=== PATIENT | male | born 1990 | race Hispanic/Latino ===

== ENCOUNTER 2017-05-17 19:35 | Emergency (ER) | payer BC, MEDICAID, OTHER ==
[2017-05-17 19:35] VITALS: BMI 22.1
--- NOTE | 2017-05-17 20:34 | ED PDOC ---
Arrival/HPI - General Chief Complaint: Cough, Cold, Congestion Time Seen by Provider: 05/17/17 19:49 Historian: Patient - History of Present Illness Narrative History of Present Illness (Text): 05/17/17 20:31 Chidi Hopper is a 26 year old male who presents to the emergency department requesting for a work note. Patient states he woke up with shortness of breath 2 day prior and was unable to go to work. States that he occasionally has those symptoms, especially after smoking heavily the previous night. Currently states he feels fine and just wants a work note. Denies any somatic complaints. Symptom Course: Resolved Severity Level: Mild Past Medical History - Provider Review Nursing Documentation Reviewed: Yes - Infectious Disease Hx of Infectious Diseases: None - Tetanus Immunization Tetanus Immunization: Unknown - Past Medical History Past Medical History: No Previous - Cardiac Hx Hypertension: No Hx Pacemaker: No - Pulmonary Hx Asthma: No Hx Chronic Obstructive Pulmonary Disease (COPD): No Hx Emphysema: No - Neurological Hx Dementia: No Hx Seizures: No - Renal Hx Renal Disorder: No - Hematological/Oncological Hx Cancer: No - Musculoskeletal/Rheumatological Hx Falls: No - Gastrointestinal Hx Gastritis: Yes - Genitourinary/Gynecological Hx Sexually Transmitted Diseases: No - Psychiatric Hx Depression: No Hx Substance Use: Yes (CANNABIS) - Past Surgical History Past Surgical History: No Previous - Surgical History Hx Appendectomy: Yes - Anesthesia Hx Anesthesia: Yes Hx Anesthesia Reactions: No - Suicidal Assessment Feels Threatened In Home Enviroment: No Family/Social History - Physician Review Nursing Documentation Reviewed: Yes Family/Social History: No Known Family HX Smoking Status: Heavy Smoker > 10 Cigarettes Daily Hx Alcohol Use: Yes Hx Substance Use: Yes (CANNABIS) Hx Substance Use Treatment: No Allergies/Home Meds Allergies/Adverse Reactions: Allergies No Known Allergies Allergy (Verified 05/17/17 19:44) Home Medications: Home Meds Medication Instructions Recorded Confirmed No Known Home Med 04/07/17 05/17/17 Review of Systems - Review of Systems Constitutional: absent: Fevers ENT: Normal Respiratory: SOB (resolved ), Cough (chronic ). absent: Sputum Cardiovascular: absent: Chest Pain, Palpitations Gastrointestinal: absent: Abdominal Pain, Nausea, Vomiting Neurological: Normal Physical Exam Vital Signs Reviewed: Yes Vital Signs Temp Pulse Resp BP Pulse Ox 05/17/17 20:39 97.2 F L 98 H 19 108/72 100 05/17/17 19:44 98.4 F 85 16 127/90 98 Temperature: Afebrile Blood Pressure: Normal Pulse: Regular Respiratory Rate: Normal Appearance: Positive for: Well-Appearing, Non-Toxic, Comfortable Pain Distress: None Mental Status: Positive for: Alert and Oriented X 3 - Systems Exam Head: Present: Atraumatic, Normocephalic Pupils: Present: PERRL Conjunctiva: Present: Normal Mouth: Present: Moist Mucous Membranes Pharnyx: Present: Normal. No: ERYTHEMA, EXUDATE Respiratory/Chest: Present: Clear to Auscultation, Good Air Exchange. No: Respiratory Distress, Accessory Muscle Use Cardiovascular: Present: Regular Rate and Rhythm, Normal S1, S2. No: Murmurs Abdomen: Present: Normal Bowel Sounds. No: Tenderness, Distention, Peritoneal Signs Neurological: Present: GCS=15, CN II-XII Intact, Speech Normal, Motor Func Grossly Intact, Normal Sensory Function Skin: Present: Warm, Dry, Normal Color. No: Rashes Psychiatric: Present: Alert, Oriented x 3, Normal Insight, Normal Concentration Medical Decision Making ED Course and Treatment: 05/17/17 20:35 Impression: A 26 year old male who presents to the emergency department complaining of shortness of breath 2 days ago, and was unable to go to work due to these symptoms. Currently asymptomatic, and is requesting work note. Progress Notes: 05/17/17 20:37 Patient in no acute distress with normal exam and vitals. Strongly advised the patient to cease smoking. Advised to f/u with PMD and present back to emergency department for new/worsening symptoms. - Scribe Statement The provider has reviewed the documentation as recorded by the Stanley Sharpe Provider Attestation: Provider Scribe Attestation: All medical record entries made by the Stanley were at my direction and personally dictated by me. I have reviewed the chart and agree that the record accurately reflects my personal performance of the history, physical exam, medical decision making, and the department course for this patient. I have also personally directed, reviewed, and agree with the discharge instructions and disposition. Disposition/Present on Arrival - Present on Arrival Any Indicators Present on Arrival: No History of DVT/PE: No History of Uncontrolled Diabetes: No Urinary Catheter: No History of Decub. Ulcer: No History Surgical Site Infection Following: None - Disposition Have Diagnosis and Disposition been Completed?: Yes Diagnosis: Shortness of breath Disposition: HOME/ ROUTINE Disposition Time: 20:55 Patient Plan: Discharge Condition: GOOD Discharge Instructions (ExitCare): How to Stop Smoking (ED) Additional Instructions: Stop smoking. Return to the emergency department if any new concerning symptoms. Referrals: Esvin Batres MD [Primary Care Provider] - Follow up with primary Forms: WORK NOTE
[2017-05-17 20:40] VITALS: BP 108/72; PULSE 98; RESP 19; TEMP 97.2; O2SAT 100
== END 2017-05-17 21:23 | disposition home or self-care (01) ==
LOC: ED 19:35
DX: R06.02 Shortness of breath (principal)

== ENCOUNTER 2017-06-06 21:04 | Emergency (ER) | payer SELFPAY ==
[2017-06-06 21:07] VITALS: BMI 23.6
[2017-06-06 21:21] VITALS: TEMP 99.5
--- NOTE | 2017-06-06 21:29 | ED PDOC ---
Arrival/HPI - General Chief Complaint: Abnormal Skin Integrity Time Seen by Provider: 06/06/17 21:15 Historian: Patient EM Caveat: Other - History of Present Illness Narrative History of Present Illness (Text): 06/06/17 21:15 A 26 year old male, with no significant past medical history, presents to the emergency department with complaints of a rash on his face for the past three days. Today, the rash spread to his chin. The patient denies any fever, nausea, headaches, cough, shortness of breath, chest pain, or any other complaints at this time. Time/Duration: < week (3 days ) Symptom Onset: Sudden Symptom Course: Unchanged, Worsening Activities at Onset: Rest Context: Home Past Medical History - Provider Review Nursing Documentation Reviewed: Yes - Infectious Disease Hx of Infectious Diseases: None - Tetanus Immunization Tetanus Immunization: Unknown - Past Medical History Past Medical History: No Previous - Cardiac Hx Hypertension: No Hx Pacemaker: No - Pulmonary Hx Asthma: No Hx Chronic Obstructive Pulmonary Disease (COPD): No Hx Emphysema: No - Neurological Hx Dementia: No Hx Seizures: No - Renal Hx Renal Disorder: No - Hematological/Oncological Hx Cancer: No - Musculoskeletal/Rheumatological Hx Falls: No - Gastrointestinal Hx Gastritis: Yes - Genitourinary/Gynecological Hx Sexually Transmitted Diseases: No - Psychiatric Hx Depression: No Hx Substance Use: Yes (CANNABIS) - Past Surgical History Past Surgical History: No Previous - Surgical History Hx Appendectomy: Yes - Anesthesia Hx Anesthesia: Yes Hx Anesthesia Reactions: No - Suicidal Assessment Feels Threatened In Home Enviroment: No Family/Social History - Physician Review Nursing Documentation Reviewed: Yes Family/Social History: Other (nc) Smoking Status: Heavy Smoker > 10 Cigarettes Daily Hx Alcohol Use: Yes Hx Substance Use: Yes (CANNABIS) Hx Substance Use Treatment: No Allergies/Home Meds Allergies/Adverse Reactions: Allergies No Known Allergies Allergy (Verified 05/17/17 19:44) Review of Systems - Review of Systems Constitutional: absent: Fevers Respiratory: absent: SOB, Cough Cardiovascular: absent: Chest Pain Gastrointestinal: absent: Nausea Skin: Rash (On face near nose spreading to chin) Neurological: absent: Headache Physical Exam Vital Signs Temp Pulse Resp BP Pulse Ox 06/06/17 22:00 78 16 122/76 99 06/06/17 21:21 99.5 F 82 20 142/77 100 Temperature: Afebrile Blood Pressure: Normal Pulse: Regular Respiratory Rate: Normal Appearance: Positive for: Well-Appearing, Non-Toxic, Comfortable Pain Distress: None Mental Status: Positive for: Alert and Oriented X 3 - Systems Exam Head: Present: Atraumatic, Normocephalic Pupils: Present: PERRL Extroacular Muscles: Present: EOMI Mouth: Present: Moist Mucous Membranes Neck: Present: Normal Range of Motion Respiratory/Chest: No: Respiratory Distress, Accessory Muscle Use Cardiovascular: Present: Regular Rate and Rhythm. No: Murmurs Neurological: Present: GCS=15, Other (no focal deficits) Skin: Present: Warm, Dry, Rashes (Small honey-crustedlesion on the right nasal labial fold, proxial left nare and chin. ) Psychiatric: Present: Alert, Oriented x 3 - Scribe Statement The provider has reviewed the documentation as recorded by the Scribe Laura Nguyen Provider Scribe Attestation: All medical record entries made by the Scribe were at my direction and personally dictated by me. I have reviewed the chart and agree that the record accurately reflects my personal performance of the history, physical exam, medical decision making, and the department course for this patient. I have also personally directed, reviewed, and agree with the discharge instructions and disposition. Disposition/Present on Arrival - Present on Arrival Any Indicators Present on Arrival: No History of DVT/PE: No History of Uncontrolled Diabetes: No Urinary Catheter: No History of Decub. Ulcer: No History Surgical Site Infection Following: None - Disposition Have Diagnosis and Disposition been Completed?: Yes Diagnosis: Impetigo Disposition: HOME/ ROUTINE Disposition Time: 22:00 Condition: GOOD Discharge Instructions (ExitCare): Impetigo (ED) Additional Instructions: Please follow up with your doctor. Return to the ER for any worsening symptoms or for any other concerns. Prescriptions: Doxycycline Hyclate 100 mg PO Q12H #20 capsule Mupirocin 2% Ointment [Bactroban Ointment] 1 appl TP TID #1 tube Referrals: PCP,NO [Primary Care Provider] - Follow up with primary Forms: [employer] (H[place]ian), WORK NOTE
[2017-06-06 22:23] VITALS: BP 122/76; PULSE 78; RESP 16; O2SAT 99
== END 2017-06-06 22:00 | disposition home or self-care (01) ==
LOC: ED 21:04
DX: L01.00 Impetigo, unspecified (principal)

== ENCOUNTER 2017-09-21 21:22 | Inpatient (IN) | payer MEDICAID, OTHER ==
[2017-09-21 21:25] VITALS: BMI 21.7
[2017-09-21] MEDS ORDERED: Sodium Chloride 0.9% 1,000 ML IV STA (21:38)
--- NOTE | 2017-09-21 22:05 | ED PDOC ---
Arrival/HPI - General Chief Complaint: Chest Pain Time Seen by Provider: 09/21/17 21:34 Historian: Patient - History of Present Illness Narrative History of Present Illness (Text): 09/21/17 22:02 26yo male present with complaint of chest pain, chills, SOB, diarrhea since this evening. The boyfriend by the bedside states patient uses cocaine daily and used Meth yesterday. He also notes that patient drinks vodka daily. Patient states the last time he drank vodka was this morning. He denies nausea, vomiting , fever, diaphoresis, calf pain, abdominal pain, any other complaint. Past Medical History - Provider Review Nursing Documentation Reviewed: Yes - Infectious Disease Hx of Infectious Diseases: None - Tetanus Immunization Tetanus Immunization: Unknown - Past Medical History Past Medical History: No Previous - Cardiac Hx Hypertension: No Hx Pacemaker: No - Pulmonary Hx Asthma: No Hx Chronic Obstructive Pulmonary Disease (COPD): No Hx Emphysema: No - Neurological Hx Dementia: No Hx Seizures: No - Renal Hx Renal Disorder: No - Hematological/Oncological Hx Cancer: No - Musculoskeletal/Rheumatological Hx Falls: No - Gastrointestinal Hx Gastritis: Yes - Genitourinary/Gynecological Hx Sexually Transmitted Diseases: No - Psychiatric Hx Depression: No Hx Substance Use: Yes (CANNABIS, Meth) - Past Surgical History Past Surgical History: No Previous - Surgical History Hx Appendectomy: Yes - Anesthesia Hx Anesthesia: Yes Hx Anesthesia Reactions: No - Suicidal Assessment Feels Threatened In Home Enviroment: No Family/Social History - Physician Review Nursing Documentation Reviewed: Yes Family/Social History: Unknown Family HX Smoking Status: Heavy Smoker > 10 Cigarettes Daily Hx Alcohol Use: Yes Hx Substance Use: Yes (CANNABIS, Meth) Hx Substance Use Treatment: No Allergies/Home Meds Allergies/Adverse Reactions: Allergies No Known Allergies Allergy (Verified 05/17/17 19:44) Home Medications: Home Meds Medication Instructions Recorded Confirmed No Known Home Med 09/21/17 09/21/17 Review of Systems - Physician Review All systems were reviewed & negative as marked: Yes - Review of Systems Constitutional: Normal Eyes: Normal ENT: Normal Respiratory: Normal Cardiovascular: Chest Pain. absent: Palpitations, Edema, Calf Pain Gastrointestinal: Normal Genitourinary Male: Normal Musculoskeletal: Normal Skin: Normal Neurological: Normal Endocrine: Normal Hemo/Lymphatic: Normal Psychiatric: Normal Physical Exam Vital Signs Reviewed: Yes Vital Signs Temp Pulse Resp BP Pulse Ox 09/21/17 21:22 97.3 F L 122 H 20 144/78 98 Temperature: Afebrile Blood Pressure: Normal Pulse: Tachycardic Respiratory Rate: Normal Appearance: Positive for: Well-Appearing, Non-Toxic, Comfortable, Other ( Tremors of upper extrmity and trunk noted) Pain Distress: None Mental Status: Positive for: Alert and Oriented X 3 - Systems Exam Head: Present: Atraumatic, Normocephalic Pupils: Present: PERRL Extroacular Muscles: Present: EOMI Conjunctiva: Present: Normal Mouth: Present: Moist Mucous Membranes Neck: Present: Normal Range of Motion Respiratory/Chest: Present: Clear to Auscultation, Good Air Exchange. No: Respiratory Distress, Accessory Muscle Use Cardiovascular: Present: Regular Rate and Rhythm, Normal S1, S2. No: Murmurs Abdomen: Present: Normal Bowel Sounds. No: Tenderness, Distention, Peritoneal Signs Back: Present: Normal Inspection Upper Extremity: Present: Normal Inspection. No: Cyanosis, Edema Lower Extremity: Present: Normal Inspection. No: Edema Neurological: Present: GCS=15, CN II-XII Intact, Speech Normal Skin: Present: Warm, Dry, Normal Color. No: Rashes Psychiatric: Present: Alert, Oriented x 3, Normal Insight, Normal Concentration Medical Decision Making ED Course and Treatment: 09/22/17 01:54 Pt was tachy on presentation with tremors noted. He was given NS, Ativan and Librium in ED. Alcohol withdrawal was suspected, hence pt admits he drinks everyday. Lab was ordered and reviewed. Alcohol Less than 10 in his system further increased the likelihood of diagnosis of alcohol withdrawal. LDH and CR was elevated, this could be secondary to pt's drug habit. Elevated LFT's is also secondary to pt history of alcohol intake. Leukocytosis is also noted. this could be viral in nature. EKG sinus tachy with incomplete RBBB @133bpm. No ST changes CXR NAD Pt will be admitted to [facility] for further evaluation. Case was TIMUR wang and he requested that pt be admitted to the hospitalist. Case was TIMUR Sheridan and pt was admitted to the hospitalist. - Lab Interpretations Lab Results: 09/21/17 22:16 09/21/17 22:16 Lab Results 09/21/17 22:16: Alcohol, Quantitative < 10 09/21/17 22:16: Sodium 141, Potassium 3.1 L, Chloride 103, Carbon Dioxide 16 L, Anion Gap 25 H, BUN 16, Creatinine 1.0, Est GFR ( Amer) > 60, Est GFR ( Non-Af Amer) > 60, Random Glucose 154 H, Calcium 10.4, Magnesium 1.3 L, Total Bilirubin 1.2, AST 120 H, ALT 107 H, Alkaline Phosphatase 114, Lactate Dehydrogenase 730 H, Total Creatine Kinase 1215 H, CK-MB (CK-2) 15.4 H, CK-MB ( CK-2) % 1.3 L, Troponin I 0.02, Total Protein 8.9 H, Albumin 5.2 H, Globulin 3.7 , Albumin/Globulin Ratio 1.4 09/21/17 22:16: PT 11.6, INR 1.06, APTT 24.8 L 09/21/17 22:16: WBC 16.7 H D, RBC 4.80, Hgb 16.6, Hct 46.0, MCV 95.8, MCH 34.6, MCHC 36.1, RDW 12.8, Plt Count 247, MPV 10.6, Gran % 81.6 H, Lymph % (Auto) 9.3 L, Erie % (Auto) 8.9 H, Eos % (Auto) 0.0 L, Baso % (Auto) 0.2, Gran # 13.66 H, Lymph # 1.6, Erie # 1.5 H, Eos # 0.0, Baso # 0.03 - RAD Interpretation Radiology Orders: 09/21/17 21:37 CHEST PORTABLE [RAD] Stat - Medication Orders Current Medication Orders: Aspirin (Aspirin Chewable) 81 mg PO DAILY LAWSON Chlordiazepoxide (Librium) 50 mg PO Q6H PRN; Protocol PRN Reason: Symptoms of alcohol withdrawl Folic Acid (Folic Acid) 1 mg PO DAILY LAWSON Magnesium Sulfate 2 gm/ Sodium (Chloride) 104 mls @ 102 mls/hr IV ONCE ONE Stop: 09/22/17 02:41 Sodium Chloride (Sodium Chloride 0.9%) 1,000 mls @ 200 mls/hr IV .Q5H LAWSON Sodium Chloride (Sodium Chloride 0.9%) 1,000 mls @ 999 mls/hr IV .Q1H1M STA Stop: 09/22/17 02:39 Thiamine HCl (Vitamin B1 Tab) 50 mg PO DAILY LAWSON Discontinued Medications Aspirin (Aspirin) 325 mg PO STAT STA Stop: 09/21/17 22:01 Last Admin: 09/21/17 22:23 Dose: 325 mg Chlordiazepoxide (Librium) 50 mg PO STAT STA PRN Reason: Protocol Stop: 09/21/17 22:10 Last Admin: 09/21/17 22:25 Dose: 50 mg Sodium Chloride (Sodium Chloride 0.9%) 1,000 mls @ 999 mls/hr IV .Q1H1M STA Stop: 09/21/17 22:38 Last Admin: 09/21/17 22:22 Dose: 999 mls/hr eMAR Start Stop Document 09/21/17 22:22 YOVANY (Rec: 09/21/17 22:23 YOVANY [id number]) Intravenous Solution Start Date 09/21/17 Start Time 22:22 End Date 09/21/17 End time 23:22 Total Infusion Time 60 Lorazepam (Ativan) 2 mg IVP ONCE ONE PRN Reason: Protocol Stop: 09/21/17 22:00 Last Admin: 09/21/17 22:22 Dose: 2 mg IVP Administration Document 09/21/17 22:22 YOVANY (Rec: 09/21/17 22:22 YOVANY [id number]) Charges for Administration # of IVP Administrations 1 Potassium Chloride (Potassium Chloride Oral Soln) 40 meq PO STAT STA Stop: 09/21/17 22:51 Potassium Chloride (K-Dur 20 Meq Er Tab) 40 meq PO STAT STA Stop: 09/22/17 01:41 Disposition/Present on Arrival - Present on Arrival Any Indicators Present on Arrival: No History of DVT/PE: No History of Uncontrolled Diabetes: No Urinary Catheter: No History of Decub. Ulcer: No History Surgical Site Infection Following: None - Disposition Have Diagnosis and Disposition been Completed?: Yes Diagnosis: Alcohol withdrawal, Rhabdomyolysis, Leukocytosis, Elevated liver enzymes, Chest pain Disposition: HOSPITALIZED Disposition Time: 00:20 Patient Plan: Discharge Patient Problems: Current Active Problems Problem Status Onset Alcohol withdrawal Acute Condition: FAIR
[2017-09-21] MEDS ORDERED: Multivitamin (MVI) 10 ML, Thiamine 100 MG, Folic Acid 1 MG in Sodium Chloride 0.9% 1,00... IV ONE (22:08)
[2017-09-21 22:44] LABS: ALB/GLOB RATIO 1.4 (1.1-1.8); ALKALINE PHOSPHATASE 114 U/L (38-126); ALT/SGPT 107 U/L (7-56); AST/SGOT 120 U/L (17-59); BILIRUBIN,TOTAL 1.2 mg/dL (0.2-1.3); BLOOD UREA NITROGEN 16 mg/dL (7-21); CALCIUM 10.4 mg/dL (8.4-10.5); CARBON DIOXIDE 16 mmol/L (21-33); CHLORIDE 103 mmol/L (98-107); GFR AFRICAN-AMERICAN > 60; GLUCOSE,RANDOM 154 mg/dL (70-110); MAGNESIUM 1.3 mg/dL (1.7-2.2); POTASSIUM 3.1 mmol/L (3.6-5.0); SODIUM 141 mmol/L (132-148); TOTAL PROTEIN 8.9 g/dL (5.8-8.3)
[2017-09-21] MEDS ORDERED: Potassium Chloride 40 mEq/30 ml LIQ UD PO STA (22:50)
[2017-09-21 22:53] LABS: BASO # 0.03 K/mm3 (0.0-2.0); BASO % 0.2 % (0.0-3.0); GRAN # 13.66 (1.4-6.5); GRAN % 81.6 % (50.0-68.0); LYMPH # 1.6 (1.2-3.4); LYMPH % 9.3 % (22.0-35.0); MEAN CELL VOLUME 95.8 fl (80.0-105.0); MEAN CORPUSCULAR HEMOGLOBIN 34.6 pg (25.0-35.0); MEAN CORPUSCULAR HGB CONC 36.1 g/dl (31.0-37.0); MEAN PLATELET VOLUME 10.6 fl (7.0-11.0); MONO # 1.5 (0.1-0.6); MONO % 8.9 % (1.0-6.0); RED CELL DISTRIBUTION WIDTH 12.8 % (11.5-14.5); WHITE BLOOD COUNT 16.7 10^3/ul (4.5-11.0)
[2017-09-21 22:56] LABS: TROPONIN I 0.02 ng/mL
[2017-09-21 22:58] LABS: INR 1.06 (0.93-1.08); PARTIAL THROMBOPLASTIN TIME 24.8 Seconds (25.1-36.5)
--- NOTE | 2017-09-22 01:13 | CP.PCM.HP ---
<Norman Richard - Last Filed: 09/22/17 02:10> History of Present Illness - History of Present Illness History of Present Illness: 26-year-old male with past medical history of alcohol abuse and multi drug use including cocaine and crystal meth to the ED with chest pain. Patient states chest pain began at 5 PM today patient stated he was home sitting down when he felt like there was a crushing force on his chest. He rated the pain a 9 out of 10 and also stated both of his arms felt numb. He denied radiation to the neck or jaw and patient has never experienced pain like this ever before. Patient then told his boyfriend to bring him into the hospital . Patient states that along with the chest pain he also had increased sweating. Patient admits to cocaine use possibly yesterday and also use of crystal meth for the first time yesterday. His last drink was earlier this morning and it was a mixed drink. Patient also states that he has had diarrhea for the past two months in his last episode of diarrhea was in this morning and was watery in consistency. Patient denies shortness of breath, nausea, vomiting, fever, chills, abdominal pain or any other complaints at this time. Past Medical History: Denies any past medical history Past Surgical: denies Allergies: NKDA Social: smokes a pack of cigarettes a day for the past six months. Drinks a pint to half gallon of vodka a day. Admits to cocaine use and methamphetamine use. Family history: significant for diabetes Medications: patient is not take any medications at home Present on Admission - Present on Admission Any Indicators Present on Admission: No Review of Systems - Constitutional Constitutional: Excessive Sweating. absent: Anorexia - EENT Eyes: absent: Change in Vision Nose/Mouth/Throat: Nasal Discharge, Sore Throat - Cardiovascular Cardiovascular: Chest Pain, Chest Pain at Rest. absent: Rapid Heart Rate - Respiratory Respiratory: absent: Cough, Dyspnea, Pain on Inspiration - Gastrointestinal Gastrointestinal: Diarrhea. absent: Constipation, Nausea, Vomiting - Genitourinary Genitourinary: absent: Difficulty Urinating - Musculoskeletal Musculoskeletal: absent: Myalgias - Integumentary Integumentary: absent: Rash - Neurological Neurological: Numbness. absent: Tingling Additional comments: numbness in arms biltaerally now resolved Past Patient History - Infectious Disease Hx of Infectious Diseases: None - Tetanus Immunizations Tetanus Immunization: Unknown - Past Social History Smoking Status: Heavy Smoker > 10 Cigarettes Daily - CARDIAC Hx Hypertension: No Hx Pacemaker: No - PULMONARY Hx Asthma: No Hx Chronic Obstructive Pulmonary Disease (COPD): No Hx Emphysema: No - NEUROLOGICAL Hx Dementia: No Hx Seizures: No - RENAL Hx Chronic Kidney Disease: No - HEMATOLOGICAL/ONCOLOGICAL Hx Cancer: No - MUSCULOSKELETAL/RHEUMATOLOGICAL Hx Falls: No - GASTROINTESTINAL Hx Gastritis: Yes - GENITOURINARY/GYNECOLOGICAL Hx Sexually Transmitted Disorders: No - PSYCHIATRIC Hx Depression: No Hx Substance Use: Yes (CANNABIS, Meth) - SURGICAL HISTORY Hx Appendectomy: Yes - ANESTHESIA Hx Anesthesia: Yes Hx Anesthesia Reactions: No Meds Allergies/Adverse Reactions: Allergies Allergy/AdvReac Type Severity Reaction Status Date / Time No Known Allergies Allergy Verified 05/17/17 19:44 Physical Exam - Constitutional Appears: Non-toxic, No Acute Distress - Head Exam Head Exam: ATRAUMATIC, NORMAL INSPECTION, NORMOCEPHALIC - Eye Exam Eye Exam: EOMI, Normal appearance, PERRL Pupil Exam: NORMAL ACCOMODATION, PERRL - ENT Exam ENT Exam: Mucous Membranes Moist, Normal Exam - Respiratory Exam Respiratory Exam: Clear to Auscultation Bilateral, NORMAL BREATHING PATTERN - Cardiovascular Exam Cardiovascular Exam: REGULAR RHYTHM, +S1, +S2 - GI/Abdominal Exam GI & Abdominal Exam: Normal Bowel Sounds, Soft. absent: Tenderness - Extremities Exam Extremities exam: Positive for: pedal pulses present - Neurological Exam Neurological exam: Alert, CN II-XII Intact, Oriented x3 Results - Vital Signs Recent Vital Signs: Last Vital Signs Temp 97.3 F L 09/21/17 21:22 Pulse 122 H 09/21/17 21:22 Resp 20 09/21/17 21:22 BP 144/78 09/21/17 21:22 Pulse Ox 98 09/21/17 21:22 - Labs Result Diagrams: 09/21/17 22:16 09/21/17 22:16 Assessment & Plan - Assessment and Plan (Free Text) Assessment: 26-year-old male with past medical history of alcohol abuse and multi drug use including cocaine and crystal meth to the ED with chest pain. Plan: 1. Chest pain rule out ACS-secondary to multi drug abuse v general anxiety -EKG order to obtain no ST changes pending official read -chest x-ray ordered and obtained pending official read -initial troponins .02 will repeat serial troponins x 2 -repeat EKG in AM -aspirin 81mg -lipid panel pending -UDS pending 2. Elevated CK -CK 1215 -bolus 1 liter fluid -NS@200 cc/hr -will repeat CK in am 3. Anion Gap metaboc acidosis with electrolyte disturbances -M.3 K, 3.1 -replete Mg with 2G Magnesium Sulfate IV -replete K with 40 meq -repeat labs in AM 4. Alcohol Withdrawal -Will monitor for signs of withdrawal -librium 50 PO Q8 PRN -CIWA protocol -banana bag in ED -will start thiamine, folic acid, B12 PO 5. GI/DVT Prophylaxis -sequential compression device <Arvin,Delbert Q - Last Filed: 09/22/17 04:37> Results - Vital Signs Recent Vital Signs: Last Vital Signs Temp 97.3 F L 09/21/17 21:22 Pulse 122 H 09/21/17 21:22 Resp 20 09/21/17 21:22 BP 144/78 09/21/17 21:22 Pulse Ox 98 09/21/17 21:22 - Labs Result Diagrams: 09/21/17 22:16 09/21/17 22:16 Attending/Attestation - Attestation I have personally seen and examined this patient.: Yes I have fully participated in the care of the patient.: Yes I have reviewed all pertinent clinical information: Yes Notes (Text): 09/22/17 04:34 Agree with the above mentioned note and exam by the resident with the addition/ exception of the following: CC: chest pain x 1 day 26 y/o male with a PMHx Cocaine/Crystal Meth abuse, Etoh abuse x 6 months presents to the ED with the complaint of chest pain x 1 day. Patient admitted to rule out chest pain caused by ACS; Offered psych consultation for his behavior of polysubstance abuse and the patient refused. Attempted to offer counseling on the patient's substance abuse and he did not demonstrate understanding or the desire to alter his habits. Patient will need extensive counseling and outpatient follow-up once he is ready to be discharged home.
[2017-09-22] MEDS ORDERED: Sodium Chloride 0.9% 1,000 ML IV STA (01:39)
[2017-09-22] MEDS ORDERED: Potassium Chloride 20 mEq ER Tab PO STA (01:40)
[2017-09-22] MEDS ORDERED: Magnesium Sulfate 2 GM in Sodium Chloride 0.9% 100 ML IV ONE (01:40)
[2017-09-22 07:19] LABS: BASO # 0.02 K/mm3 (0.0-2.0); BASO % 0.2 % (0.0-3.0); EOS % 0.4 % (1.5-5.0); GRAN # 5.54 (1.4-6.5); GRAN % 67.8 % (50.0-68.0); HEMATOCRIT 41.3 % (42.0-52.0); LYMPH # 1.9 (1.2-3.4); LYMPH % 23.5 % (22.0-35.0); MEAN CELL VOLUME 98.3 fl (80.0-105.0); MEAN CORPUSCULAR HEMOGLOBIN 33.8 pg (25.0-35.0); MEAN CORPUSCULAR HGB CONC 34.4 g/dl (31.0-37.0); MEAN PLATELET VOLUME 10.1 fl (7.0-11.0); MONO # 0.7 (0.1-0.6); MONO % 8.1 % (1.0-6.0); RED CELL DISTRIBUTION WIDTH 13.1 % (11.5-14.5); WHITE BLOOD COUNT 8.2 10^3/ul (4.5-11.0)
[2017-09-22 07:34] LABS: ALB/GLOB RATIO 1.4 (1.1-1.8); ALKALINE PHOSPHATASE 77 U/L (38-126); ALT/SGPT 86 U/L (7-56); AST/SGOT 90 U/L (17-59); BILIRUBIN,TOTAL 1.2 mg/dL (0.2-1.3); BLOOD UREA NITROGEN 15 mg/dL (7-21); CALCIUM 9.1 mg/dL (8.4-10.5); CARBON DIOXIDE 24 mmol/L (21-33); CHLORIDE 109 mmol/L (98-107); CHOLESTEROL 157 mg/dL (130-200); GFR AFRICAN-AMERICAN > 60; GLUCOSE,RANDOM 92 mg/dL (70-110); POTASSIUM 4.5 mmol/L (3.6-5.0); SODIUM 139 mmol/L (132-148); TOTAL PROTEIN 7.1 g/dL (5.8-8.3)
[2017-09-22 07:39] LABS: TROPONIN I 0.02 ng/mL
[2017-09-22 08:55] LABS: PH,URINE 6.5 (4.7-8.0); URINE BILIRUBIN NEGATIVE (NEGATIVE); URINE BLOOD NEGATIVE (NEGATIVE); URINE GLUCOSE (UA) NEGATIVE (NEGATIVE); URINE KETONE NEGATIVE (NEGATIVE); URINE LEUKOCYTE ESTERASE NEGATIVE Leu/uL (NEGATIVE); URINE PROTEIN NEGATIVE mg/dL (<30 mg/dL); URINE UROBILINOGEN 0.2 E.U./dL (<1 E.U./dL)
[2017-09-22 08:57] LABS: URINE APPEARANCE CLEAR (CLEAR); URINE COLOR YELLOW (YELLOW)
--- NOTE | 2017-09-22 09:13 | RAD ---
HISTORY: chest pain COMPARISON: No prior. FINDINGS: LUNGS: No active pulmonary disease. PLEURA: No significant pleural effusion identified, no pneumothorax apparent. CARDIOVASCULAR: Normal. OSSEOUS STRUCTURES: No significant abnormalities. VISUALIZED UPPER ABDOMEN: Normal. OTHER FINDINGS: None. IMPRESSION: No active disease.
[2017-09-22] MEDS: Sodium Chloride 0.9% 1,000 ML IV SCH (12:00)
[2017-09-22] MEDS: Magnesium Chloride 64 mg ER Tab PO SCH (14:29)
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
--- NOTE | 2017-09-22 22:13 | CARD ---
APPROVED REPORT EKG Measurement Heart [id number] AL [id number] <Conclusion> Normal sinus rhythm Incomplete right bundle branch block Borderline ECG
--- NOTE | 2017-09-22 22:23 | CARD ---
APPROVED REPORT EKG Measurement Heart [id number] <Conclusion> Sinus tachycardia Incomplete right bundle branch block Borderline ECG
[2017-09-23] MEDS: Sodium Chloride 0.9% 1,000 ML IV SCH ×5 (00:31→21:55)
--- NOTE | 2017-09-23 00:45 | CON ---
DATE: REASON FOR CONSULTATION: Shortness of breath and chest discomfort. HISTORY OF PRESENT ILLNESS: The patient is a 26-year-old male who has a history of EtOH abuse as well as drug abuse including cocaine and methamphetamine, presented with chest discomfort and shortness of breath. The patient is unaware of any prior cardiac history. SOCIAL HISTORY: The patient is smoker and EtOH abuser. He takes care of his grandmother. He is not working. MEDICATIONS: Aspirin 81 mg once a day, Ativan 2 mg hours p.r.n., folic acid 1 mg daily, 50 mg p.o. q.6 hours, and thiamine 50 mg orally daily. REVIEW OF SYSTEMS: No nausea or vomiting. No fever or chills. PHYSICAL EXAMINATION: GENERAL: The patient is a young middle-aged male who does not appear to be in any distress. VITAL SIGNS: Blood pressure 130/85, heart rate 81, temperature 98.1, and respirations 17. HEENT: Normocephalic. CHEST: Clear. HEART: S1 and S2 regular. ABDOMEN: Soft. EXTREMITIES: No edema. LABORATORY DATA: Urine drug screen is positive for amphetamines, benzodiazepines and cocaine. SMA-7 today is within normal limit except for chloride of 109; yesterday potassium was 3.1, which was replaced. Magnesium is 1.3, below normal. PTT 24.8 and INR is 1.06. Hemoglobin and hematocrit 14.2 and 41.3. White count of 8.2 and platelet count of 197,000. EKG revealed normal sinus rhythm, incomplete right bundle-branch block. ASSESSMENT: 1. Chest pain, status post cocaine abuse. 2. History of ethyl alcohol abuse. 3. Hypomagnesemia. 4. Troponin at a level of 0.02, in the indeterminate range. RECOMMENDATIONS: Continue aspirin 81 mg once a day. Continue current Librium, Protonix and thiamine. Start Imdur at 30 mg orally once a day and obtain an echocardiogram. Eric Vickers MD
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
[2017-09-23] MEDS: Pantoprazole 40 mg EC Tab PO SCH (05:16)
[2017-09-23 06:03] LABS: BASO # 0.04 K/mm3 (0.0-2.0); BASO % 0.5 % (0.0-3.0); EOS # 0.1 (0.0-0.7); EOS % 0.6 % (1.5-5.0); GRAN # 5.69 (1.4-6.5); GRAN % 67.4 % (50.0-68.0); HEMATOCRIT 37.5 % (42.0-52.0); LYMPH # 1.9 (1.2-3.4); LYMPH % 22.3 % (22.0-35.0); MEAN CELL VOLUME 99.5 fl (80.0-105.0); MEAN CORPUSCULAR HEMOGLOBIN 33.2 pg (25.0-35.0); MEAN CORPUSCULAR HGB CONC 33.3 g/dl (31.0-37.0); MEAN PLATELET VOLUME 9.9 fl (7.0-11.0); MONO # 0.8 (0.1-0.6); MONO % 9.2 % (1.0-6.0); RED CELL DISTRIBUTION WIDTH 13.1 % (11.5-14.5); WHITE BLOOD COUNT 8.4 10^3/ul (4.5-11.0)
[2017-09-23 06:20] LABS: ALB/GLOB RATIO 1.2 (1.1-1.8); ALKALINE PHOSPHATASE 69 U/L (38-126); ALT/SGPT 79 U/L (7-56); AST/SGOT 82 U/L (17-59); BILIRUBIN,TOTAL 1.1 mg/dL (0.2-1.3); BLOOD UREA NITROGEN 9 mg/dL (7-21); CALCIUM 8.7 mg/dL (8.4-10.5); CARBON DIOXIDE 20 mmol/L (21-33); CHLORIDE 112 mmol/L (98-107); GFR AFRICAN-AMERICAN > 60; GLUCOSE,RANDOM 89 mg/dL (70-110); POTASSIUM 3.8 mmol/L (3.6-5.0); SODIUM 139 mmol/L (132-148); TOTAL PROTEIN 6.6 g/dL (5.8-8.3)
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
[2017-09-23] MEDS ORDERED: Erythromycin 0.5% Ophth Oint 1 APPLIC/3.5 G OU ONE (10:53)
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
[2017-09-24] MEDS: Sodium Chloride 0.9% 1,000 ML IV SCH ×4 (02:46→12:53)
[2017-09-24] MEDS: Pantoprazole 40 mg EC Tab PO SCH (05:11)
[2017-09-24 06:33] LABS: BASO # 0.03 K/mm3 (0.0-2.0); BASO % 0.4 % (0.0-3.0); EOS # 0.1 (0.0-0.7); EOS % 1.9 % (1.5-5.0); GRAN # 3.91 (1.4-6.5); GRAN % 57.9 % (50.0-68.0); HEMATOCRIT 36.2 % (42.0-52.0); LYMPH # 2.2 (1.2-3.4); LYMPH % 32.1 % (22.0-35.0); MEAN CELL VOLUME 101.7 fl (80.0-105.0); MEAN CORPUSCULAR HEMOGLOBIN 33.1 pg (25.0-35.0); MEAN CORPUSCULAR HGB CONC 32.6 g/dl (31.0-37.0); MEAN PLATELET VOLUME 10.4 fl (7.0-11.0); MONO # 0.5 (0.1-0.6); MONO % 7.7 % (1.0-6.0); RED CELL DISTRIBUTION WIDTH 13.1 % (11.5-14.5); WHITE BLOOD COUNT 6.8 10^3/ul (4.5-11.0)
[2017-09-24 08:04] LABS: ALB/GLOB RATIO 1.1 (1.1-1.8); ALKALINE PHOSPHATASE 64 U/L (38-126); ALT/SGPT 59 U/L (7-56); AST/SGOT 47 U/L (17-59); BILIRUBIN,TOTAL 0.7 mg/dL (0.2-1.3); BLOOD UREA NITROGEN 7 mg/dL (7-21); CALCIUM 8.5 mg/dL (8.4-10.5); CARBON DIOXIDE 19 mmol/L (21-33); CHLORIDE 114 mmol/L (98-107); GFR AFRICAN-AMERICAN > 60; GLUCOSE,RANDOM 88 mg/dL (70-110); PHOSPHOROUS 3.6 mg/dL (2.5-4.5); POTASSIUM 3.9 mmol/L (3.6-5.0); SODIUM 141 mmol/L (132-148); TOTAL PROTEIN 5.9 g/dL (5.8-8.3)
[2017-09-24] MEDS: Multivitamin Therapeutic Tab PO SCH (08:11)
--- NOTE | 2017-09-24 09:23 | CP.PCM.CON ---
<Antonieta Rosenberg - Last Filed: 09/24/17 09:08> History of Present Illness - History of Present Illness History of Present Illness: PRESENTATION: Patient is seen in his hospital bed, 1:1 in attendance. He indicates he feels well, and denies any current symptoms. He is anxious for discharge so he can take care of his grandmother. Interestingly enough, he says he has not spoken to her and is not sure if he knows where she is or if she is all right. He appears completely unconcerned by this and declines when I offer to contact her. MENTAL STATUS EXAM: Patient is alert and oriented x3, eye contact is good, thoughts are goal directed. He denies being suicidal or homicidal, denies the presence of hallucinations, delusions or paranoia. His focus and concentration have improved, and he is sleeping and eating well. PLAN: Patient declines inpatient admission, or drug and alcohol referral citing the need for him to care for his grandmother. He has no insight into his addiction and is not willing to prioritize this even with the severity of recent events. He does not meet the criteria for involuntary admission. Discharge will be determined medically. Past Patient History - Infectious Disease Hx of Infectious Diseases: None - Tetanus Immunizations Tetanus Immunization: Unknown - Past Social History Smoking Status: Heavy Smoker > 10 Cigarettes Daily - CARDIAC Hx Hypertension: No Hx Pacemaker: No - PULMONARY Hx Asthma: No Hx Chronic Obstructive Pulmonary Disease (COPD): No Hx Emphysema: No - NEUROLOGICAL Hx Dementia: No Hx Seizures: No - RENAL Hx Chronic Kidney Disease: No - HEMATOLOGICAL/ONCOLOGICAL Hx Cancer: No - MUSCULOSKELETAL/RHEUMATOLOGICAL Hx Falls: No - GASTROINTESTINAL Hx Gastrointestinal Disorders: Yes (GASTRITIS,APPENDICITIS) Hx Gastroesophageal Reflux: No - GENITOURINARY/GYNECOLOGICAL Hx Sexually Transmitted Disorders: No - PSYCHIATRIC Hx Depression: No Hx Substance Use: Yes - SURGICAL HISTORY Hx Appendectomy: Yes - ANESTHESIA Hx Anesthesia: Yes Hx Anesthesia Reactions: No Meds Allergies/Adverse Reactions: Allergies Allergy/AdvReac Type Severity Reaction Status Date / Time No Known Allergies Allergy Verified 05/17/17 19:44 - Medications Medications: Current Medications Aspirin (Aspirin Chewable) 81 mg PO DAILY [facility] Last Admin: 09/23/17 11:44 Dose: 81 mg Chlordiazepoxide (Librium) 50 mg PO Q6H [facility] PRN Reason: Protocol Last Admin: 09/24/17 08:15 Dose: 50 mg Folic Acid (Folic Acid) 1 mg PO DAILY [facility] Last Admin: 09/23/17 11:45 Dose: 1 mg Sodium Chloride (Sodium Chloride 0.9%) 1,000 mls @ 200 mls/hr IV .Q5H [facility] Last Admin: 09/24/17 07:54 Dose: 200 mls/hr Ibuprofen (Motrin Tab) 600 mg PO Q6H PRN PRN Reason: Pain, moderate (4-7) Last Admin: 09/24/17 04:41 Dose: 600 mg Isosorbide Mononitrate (Imdur) 60 mg PO DAILY [facility] Last Admin: 09/23/17 11:44 Dose: 60 mg Lorazepam (Ativan) 2 mg IVP Q2H PRN; Protocol PRN Reason: Seizure activity Last Admin: 09/23/17 20:39 Dose: 2 mg Magnesium Chloride (Slow-Mag) 64 mg PO DAILY [facility] Last Admin: 09/22/17 14:29 Dose: 64 mg Multivitamins (Thera Tab) 1 tab PO 0800 [facility] Last Admin: 09/24/17 08:11 Dose: 1 tab Pantoprazole Sodium (Protonix Ec Tab) 40 mg PO 0600 [facility] Last Admin: 09/24/17 05:11 Dose: 40 mg Thiamine HCl (Vitamin B1 Tab) 100 mg PO DAILY [facility] Last Admin: 09/23/17 11:34 Dose: 100 mg Ziprasidone (Geodon Inj) 20 mg IM TID PRN; Protocol PRN Reason: Agitation Results - Vital Signs Recent Vital Signs: Last Vital Signs Temp 97.8 F 09/24/17 06:00 Pulse 59 L 09/24/17 06:00 Resp 20 09/24/17 06:00 BP 108/48 L 09/24/17 06:00 Pulse Ox 95 09/24/17 06:00 - Labs Result Diagrams: 09/24/17 05:30 09/24/17 05:30 Labs: Laboratory Results - last 24 hr 09/22/17 09/23/17 09/24/17 14:45 05:30 05:30 WBC 6.8 RBC 3.56 Hgb 11.8 L Hct 36.2 L MCV 101.7 MCH 33.1 MCHC 32.6 RDW 13.1 Plt Count 162 MPV 10.4 Gran % 57.9 Lymph % (Auto) 32.1 [place] % (Auto) 7.7 H Eos % (Auto) 1.9 Baso % (Auto) 0.4 Gran # 3.91 Lymph # 2.2 [place] # 0.5 Eos # 0.1 Baso # 0.03 Sodium Potassium Chloride Carbon Dioxide Anion Gap BUN Creatinine Est GFR ( Amer) Est GFR (Non-Af Amer) Random Glucose Calcium Phosphorus Magnesium Total Bilirubin AST ALT Alkaline Phosphatase Total Creatine Kinase 835 H CK-MB (CK-2) 6.8 H CK-MB (CK-2) % 0.8 L Total Protein Albumin Globulin Albumin/Globulin Ratio RPR Nonreactive 09/24/17 05:30 WBC RBC Hgb Hct MCV MCH MCHC RDW Plt Count MPV Gran % Lymph % (Auto) [place] % (Auto) Eos % (Auto) Baso % (Auto) Gran # Lymph # [place] # Eos # Baso # Sodium 141 Potassium 3.9 Chloride 114 H Carbon Dioxide 19 L Anion Gap 11 BUN 7 Creatinine 0.8 Est GFR ( Amer) > 60 Est GFR (Non-Af Amer) > 60 Random Glucose 88 Calcium 8.5 Phosphorus 3.6 Magnesium 2.0 Total Bilirubin 0.7 AST 47 ALT 59 H Alkaline Phosphatase 64 Total Creatine Kinase CK-MB (CK-2) CK-MB (CK-2) % Total Protein 5.9 Albumin 3.1 Globulin 2.8 Albumin/Globulin Ratio 1.1 RPR <Hollie Orellana A - Last Filed: 09/24/17 15:08> History of Present Illness - History of Present Illness History of Present Illness: 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 case manger was advised to call adult protective services. back to pt's presentation, pt denied being depressed, denied thoughts of harming self or others, denied intent or plan, pt was found to be not in any imminent danger to self or others. Impression: substance induced psychosis alcohol use disorder d/c will be determined by medical team will sign off should you have any questions, give me a call back. Meds - Medications Medications: Current Medications Aspirin (Aspirin Chewable) 81 mg PO DAILY [facility] Last Admin: 09/24/17 10:47 Dose: 81 mg Chlordiazepoxide (Librium) 25 mg PO Q6H [facility] PRN Reason: Protocol Last Admin: 09/24/17 14:58 Dose: 25 mg Folic Acid (Folic Acid) 1 mg PO DAILY [facility] Last Admin: 09/24/17 10:46 Dose: 1 mg Sodium Chloride (Sodium Chloride 0.9%) 1,000 mls @ 200 mls/hr IV .Q5H [facility] Last Admin: 09/24/17 12:53 Dose: Not Given Ibuprofen (Motrin Tab) 600 mg PO Q6H PRN PRN Reason: Pain, moderate (4-7) Last Admin: 09/24/17 04:41 Dose: 600 mg Isosorbide Mononitrate (Imdur) 60 mg PO DAILY [facility] Last Admin: 09/24/17 10:47 Dose: 60 mg Lorazepam (Ativan) 2 mg IVP Q2H PRN; Protocol PRN Reason: Seizure activity Last Admin: 09/23/17 20:39 Dose: 2 mg Magnesium Chloride (Slow-Mag) 64 mg PO DAILY [facility] Last Admin: 09/24/17 10:47 Dose: 64 mg Multivitamins (Thera Tab) 1 tab PO 0800 [facility] Last Admin: 09/24/17 08:11 Dose: 1 tab Pantoprazole Sodium (Protonix Ec Tab) 40 mg PO 0600 [facility] Last Admin: 09/24/17 05:11 Dose: 40 mg Thiamine HCl (Vitamin B1 Tab) 100 mg PO DAILY [facility] Last Admin: 09/24/17 10:46 Dose: 100 mg Ziprasidone (Geodon Inj) 20 mg IM TID PRN; Protocol PRN Reason: Agitation Results - Vital Signs Recent Vital Signs: Last Vital Signs Temp 98.2 F 09/24/17 12:00 Pulse 68 09/24/17 12:00 Resp 20 09/24/17 12:00 BP 124/60 09/24/17 12:00 Pulse Ox 95 09/24/17 06:00 - Labs Result Diagrams: 09/24/17 05:30 09/24/17 05:30 Labs: Laboratory Results - last 24 hr 09/22/17 09/23/17 09/24/17 14:45 05:30 05:30 WBC 6.8 RBC 3.56 Hgb 11.8 L Hct 36.2 L MCV 101.7 MCH 33.1 MCHC 32.6 RDW 13.1 Plt Count 162 MPV 10.4 Gran % 57.9 Lymph % (Auto) 32.1 [place] % (Auto) 7.7 H Eos % (Auto) 1.9 Baso % (Auto) 0.4 Gran # 3.91 Lymph # 2.2 [place] # 0.5 Eos # 0.1 Baso # 0.03 Sodium Potassium Chloride Carbon Dioxide Anion Gap BUN Creatinine Est GFR ( Amer) Est GFR (Non-Af Amer) Random Glucose Calcium Phosphorus Magnesium Total Bilirubin AST ALT Alkaline Phosphatase CK-MB (CK-2) 6.8 H CK-MB (CK-2) % 0.8 L Total Protein Albumin Globulin Albumin/Globulin Ratio RPR Nonreactive 09/24/17 05:30 WBC RBC Hgb Hct MCV MCH MCHC RDW Plt Count MPV Gran % Lymph % (Auto) [place] % (Auto) Eos % (Auto) Baso % (Auto) Gran # Lymph # [place] # Eos # Baso # Sodium 141 Potassium 3.9 Chloride 114 H Carbon Dioxide 19 L Anion Gap 11 BUN 7 Creatinine 0.8 Est GFR ( Amer) > 60 Est GFR (Non-Af Amer) > 60 Random Glucose 88 Calcium 8.5 Phosphorus 3.6 Magnesium 2.0 Total Bilirubin 0.7 AST 47 ALT 59 H Alkaline Phosphatase 64 CK-MB (CK-2) CK-MB (CK-2) % Total Protein 5.9 Albumin 3.1 Globulin 2.8 Albumin/Globulin Ratio 1.1 RPR
--- NOTE | 2017-09-24 09:55 | PN ---
DATE: SUBJECTIVE: The patient is currently on one-to-one watch. He denies any chest pain. PHYSICAL EXAMINATION: VITAL SIGNS: Blood pressure 126/77, heart rate 86, temperature 98, respirations 20. HEENT: Normocephalic. CHEST: Clear. HEART: S1 and S2, regular. EXTREMITIES: No edema. LABORATORY DATA: Hemoglobin and hematocrit 12.5 and 37.5, white count and platelet count today are within normal limits. Total CPK today is declining to 835. ASSESSMENT: 1. Status post multiple drug overdose including amphetamine, benzodiazepine, and cocaine. 2. History of cocaine abuse. RECOMMENDATIONS: Continue current aspirin, Imdur, lithium, Slow-Mag, and thiamine. Magnesium level was ordered, but has not been performed yet. I will follow the echocardiographic study. Eric Vickers MD
[2017-09-24] MEDS: Magnesium Chloride 64 mg ER Tab PO SCH (10:47)
--- NOTE | 2017-09-24 13:56 | CP.PCM.PN ---
<Carlos Schumacher - Last Filed: 09/24/17 13:51> Subjective - Date & Time of Evaluation Date of Evaluation: 09/24/17 Time of Evaluation: 09:00 - Subjective Subjective: Dr Tyrese Samson Pt was seen and examined at bedside. Pt was found to be resting comfortably. 1: 1 sitter at bedside. As per nursing staff, no acute or adverse events overnight. Pt denied fever, chills, sob, chest pains, abdominal pains, n/v/d/c or urinary symptoms. Pt has expressed interest in going home. Objective - Vital Signs/Intake and Output Vital Signs (last 24 hours): Temp Pulse Resp BP Pulse Ox 98.2 F 68 20 124/60 95 09/24/17 12:00 09/24/17 12:00 09/24/17 12:00 09/24/17 12:00 09/24/17 06:00 Intake and Output: 09/24/17 09/24/17 06:59 18:59 Intake Total 3200 Balance 3200 - Medications Medications: Current Medications Aspirin (Aspirin Chewable) 81 mg PO DAILY [facility] Last Admin: 09/24/17 10:47 Dose: 81 mg Chlordiazepoxide (Librium) 50 mg PO Q6H [facility] PRN Reason: Protocol Last Admin: 09/24/17 08:15 Dose: 50 mg Folic Acid (Folic Acid) 1 mg PO DAILY [facility] Last Admin: 09/24/17 10:46 Dose: 1 mg Sodium Chloride (Sodium Chloride 0.9%) 1,000 mls @ 200 mls/hr IV .Q5H [facility] Last Admin: 09/24/17 12:53 Dose: Not Given Ibuprofen (Motrin Tab) 600 mg PO Q6H PRN PRN Reason: Pain, moderate (4-7) Last Admin: 09/24/17 04:41 Dose: 600 mg Isosorbide Mononitrate (Imdur) 60 mg PO DAILY [facility] Last Admin: 09/24/17 10:47 Dose: 60 mg Lorazepam (Ativan) 2 mg IVP Q2H PRN; Protocol PRN Reason: Seizure activity Last Admin: 09/23/17 20:39 Dose: 2 mg Magnesium Chloride (Slow-Mag) 64 mg PO DAILY [facility] Last Admin: 09/24/17 10:47 Dose: 64 mg Multivitamins (Thera Tab) 1 tab PO 0800 [facility] Last Admin: 09/24/17 08:11 Dose: 1 tab Pantoprazole Sodium (Protonix Ec Tab) 40 mg PO 0600 [facility] Last Admin: 09/24/17 05:11 Dose: 40 mg Thiamine HCl (Vitamin B1 Tab) 100 mg PO DAILY [facility] Last Admin: 09/24/17 10:46 Dose: 100 mg Ziprasidone (Geodon Inj) 20 mg IM TID PRN; Protocol PRN Reason: Agitation - Labs Labs: 09/24/17 05:30 09/24/17 05:30 PT 11.6 SECONDS (9.4-12.5) 09/21/17 22:16 INR 1.06 (0.93-1.08) 09/21/17 22:16 APTT 24.8 Seconds (25.1-36.5) L 09/21/17 22:16 - Constitutional Appears: No Acute Distress - Head Exam Head Exam: ATRAUMATIC, NORMAL INSPECTION, NORMOCEPHALIC - Eye Exam Eye Exam: EOMI, Normal appearance, PERRL Pupil Exam: NORMAL ACCOMODATION, PERRL - ENT Exam ENT Exam: Mucous Membranes Moist, Normal Exam - Neck Exam Neck Exam: Full ROM, Normal Inspection. absent: Lymphadenopathy - Respiratory Exam Respiratory Exam: Clear to Ausculation Bilateral, NORMAL BREATHING PATTERN - Cardiovascular Exam Cardiovascular Exam: REGULAR RHYTHM, +S1, +S2. absent: Murmur - GI/Abdominal Exam GI & Abdominal Exam: Soft, Normal Bowel Sounds. absent: Tenderness - Extremities Exam Extremities Exam: Full ROM, Normal Capillary Refill, Normal Inspection. absent : Joint Swelling, Pedal Edema - Back Exam Back Exam: NORMAL INSPECTION - Neurological Exam Neurological Exam: Alert, Awake, CN II-XII Intact, Normal Gait, Oriented x3 - Psychiatric Exam Psychiatric exam: Normal Affect, Normal Mood - Skin Skin Exam: Dry, Intact, Normal Color, Warm Assessment and Plan - Assessment and Plan (Free Text) Assessment: 26 M with PMHx of Cocaine/Crystal Meth abuse, Etoh abuse x 6 months admitted for chest pain evaluation. 1. Agitation - polysubstance hx - psych consulted, Dr. Hollie melendez appreciated - Geodon 2. Chest pain rule out ACS-secondary to multi drug abuse v general anxiety -EKG NSR no ST changes -chest x-ray negative -initial troponins .02 downtrending -aspirin 81mg -lipid panel wnl -UDS amphetamines, benzos, and cocaine - Cardio consulted, Dr. Vickers 3. Rhabdomyolysis - 2/2 multiple drug abuse - NS@200 cc/hr - downtrending 4. Alcohol Withdrawal -Will monitor for signs of withdrawal -librium tapered 25 PO Q6 PRN, ativan -CIWA protocol -will start thiamine, folic acid, B12 PO - Elevated LFTs. downtrending. hepatitis profile, HIV is negative 5. Conjunctivitis - Erythromycin eyedrops 6. GI/DVT Prophylaxis -sequential compression device Seen reviewed and discussed with attending <Alejandro Xiong - Last Filed: 09/24/17 17:02> Objective - Vital Signs/Intake and Output Vital Signs (last 24 hours): Temp Pulse Resp BP Pulse Ox 97.4 F L 94 H 20 122/59 L 97 09/24/17 16:00 09/24/17 16:00 09/24/17 16:00 09/24/17 16:00 09/24/17 16:00 Intake and Output: 09/24/17 09/24/17 06:59 18:59 Intake Total 3200 Balance 3200 - Medications Medications: Current Medications Aspirin (Aspirin Chewable) 81 mg PO DAILY [facility] Last Admin: 09/24/17 10:47 Dose: 81 mg Chlordiazepoxide (Librium) 25 mg PO Q6H [facility] PRN Reason: Protocol Last Admin: 09/24/17 14:58 Dose: 25 mg Folic Acid (Folic Acid) 1 mg PO DAILY [facility] Last Admin: 09/24/17 10:46 Dose: 1 mg Ibuprofen (Motrin Tab) 400 mg PO Q6H PRN PRN Reason: Pain, moderate (4-7) Isosorbide Mononitrate (Imdur) 60 mg PO DAILY [facility] Last Admin: 09/24/17 10:47 Dose: 60 mg Lorazepam (Ativan) 2 mg IVP Q2H PRN; Protocol PRN Reason: Seizure activity Last Admin: 09/24/17 15:10 Dose: 2 mg Magnesium Chloride (Slow-Mag) 64 mg PO DAILY [facility] Last Admin: 09/24/17 10:47 Dose: 64 mg Multivitamins (Thera Tab) 1 tab PO 0800 [facility] Last Admin: 09/24/17 08:11 Dose: 1 tab Pantoprazole Sodium (Protonix Ec Tab) 40 mg PO 0600 [facility] Last Admin: 09/24/17 05:11 Dose: 40 mg Thiamine HCl (Vitamin B1 Tab) 100 mg PO DAILY [facility] Last Admin: 09/24/17 10:46 Dose: 100 mg Ziprasidone (Geodon Inj) 20 mg IM TID PRN; Protocol PRN Reason: Agitation - Labs Labs: 09/24/17 05:30 09/24/17 05:30 PT 11.6 SECONDS (9.4-12.5) 09/21/17 22:16 INR 1.06 (0.93-1.08) 09/21/17 22:16 APTT 24.8 Seconds (25.1-36.5) L 09/21/17 22:16 Attending/Attestation - Attestation I have personally seen and examined this patient.: Yes I have fully participated in the care of the patient.: Yes I have reviewed all pertinent clinical information, including history, physical exam and plan: Yes Notes (Text): 09/24/17 17:01 attending note; Patient seen and examined with the resident. Patient is a 26-year-old male with a history of alcohol abuse and multiple drug abuse including cocaine, amphetamine is admitted with palpitations and anxiety. Currently patient is alert and awake. Calm. Tolerating diet. On one-to-one observation. continue IV Ativan. Psychiatric evaluation appreciated. Alcohol withdrawal; continue Ativan when necessary and tapping dose of Librium today. Rhabdomyolysis; secondary to multiple drug abuse. Continue IV fluids. CPKs trending down. Elevated LFTs; secondary to alcohol abuse. Trending down. hepatitis profile, HIV is negative. Possible discharge home tomorrow. Upon discharge the patient will be referred to [facility] [place] clinic.
--- NOTE | 2017-09-24 16:29 | PN ---
DATE: SUBJECTIVE: The patient denies any chest pain. PHYSICAL EXAMINATION: VITAL SIGNS: Blood pressure 108/48, heart rate 69, temperature 97.8, and respirations 20. HEENT: Normocephalic. CHEST: Clear. HEART: S1 and S2, regular. EXTREMITIES: No edema. LABORATORY DATA: Today's SMA-7 is within normal limits except for chloride 114 and carbon dioxide 19. Today's hemoglobin and hematocrit 11.8 and 36.2, white count and platelet counts are within normal limits. The patient, according to psychiatrist, was offered psychiatric admission, which he declined and he is willing to go on addiction treatment at some point. ASSESSMENT: 1. Status post multiple drug abuse. 2. Chest pain, no evidence of acute ischemia. 3. Mildly elevated total CPK level. RECOMMENDATIONS: Continue current aspirin, Imdur, Librium, Slow-Mag, and thiamine. The repeat magnesium level today is within normal limits. Eric Vickers MD
[2017-09-24 16:54] VITALS: O2SAT 97
[2017-09-25] MEDS: Pantoprazole 40 mg EC Tab PO SCH ×2 (06:36→07:55)
[2017-09-25 07:11] LABS: BASO # 0.08 K/mm3 (0.0-2.0); BASO % 1.1 % (0.0-3.0); EOS # 0.1 (0.0-0.7); GRAN # 3.75 (1.4-6.5); GRAN % 53.6 % (50.0-68.0); HEMATOCRIT 38.5 % (42.0-52.0); LYMPH # 2.5 (1.2-3.4); LYMPH % 35.7 % (22.0-35.0); MEAN CELL VOLUME 101.6 fl (80.0-105.0); MEAN CORPUSCULAR HEMOGLOBIN 33.2 pg (25.0-35.0); MEAN CORPUSCULAR HGB CONC 32.7 g/dl (31.0-37.0); MEAN PLATELET VOLUME 10.2 fl (7.0-11.0); MONO # 0.5 (0.1-0.6); MONO % 7.6 % (1.0-6.0); RED CELL DISTRIBUTION WIDTH 13.1 % (11.5-14.5)
[2017-09-25 09:00] VITALS: BP 118/62; PULSE 64; RESP 18; TEMP 97.9
[2017-09-25] MEDS: Multivitamin Therapeutic Tab PO SCH (09:05)
--- NOTE | 2017-09-25 09:56 | CP.PCM.DIS ---
<Martha Causey - Last Filed: 09/25/17 11:08> Provider - Provider Date of Admission: 09/22/17 00:24 Attending physician: Alejandro Xiong MD Primary care physician: Esvin Sears MD Consults: Dr. Vickers: cardio Dr. Orellana: psych Time Spent in preparation of Discharge (in minutes): 45 Hospital Course - Lab Results Lab Results: Most Recent Lab Values WBC 7.0 10^3/ul (4.5-11.0) 09/25/17 06:40 RBC 3.79 10^6/uL (3.5-6.1) 09/25/17 06:40 Hgb 12.6 g/dL (14.0-18.0) L 09/25/17 06:40 Hct 38.5 % (42.0-52.0) L 09/25/17 06:40 MCV 101.6 fl (80.0-105.0) 09/25/17 06:40 MCH 33.2 pg (25.0-35.0) 09/25/17 06:40 MCHC 32.7 g/dl (31.0-37.0) 09/25/17 06:40 RDW 13.1 % (11.5-14.5) 09/25/17 06:40 Plt Count 176 10^3/uL (120.0-450.0) 09/25/17 06:40 MPV 10.2 fl (7.0-11.0) 09/25/17 06:40 Gran % 53.6 % (50.0-68.0) 09/25/17 06:40 Lymph % (Auto) 35.7 % (22.0-35.0) H 09/25/17 06:40 Coosa % (Auto) 7.6 % (1.0-6.0) H 09/25/17 06:40 Eos % (Auto) 2.0 % (1.5-5.0) 09/25/17 06:40 Baso % (Auto) 1.1 % (0.0-3.0) 09/25/17 06:40 Gran # 3.75 (1.4-6.5) 09/25/17 06:40 Lymph # 2.5 (1.2-3.4) 09/25/17 06:40 Coosa # 0.5 (0.1-0.6) 09/25/17 06:40 Eos # 0.1 (0.0-0.7) 09/25/17 06:40 Baso # 0.08 K/mm3 (0.0-2.0) 09/25/17 06:40 PT 11.6 SECONDS (9.4-12.5) 09/21/17 22:16 INR 1.06 (0.93-1.08) 09/21/17 22:16 APTT 24.8 Seconds (25.1-36.5) L 09/21/17 22:16 Sodium 141 mmol/L (132-148) 09/24/17 05:30 Potassium 3.9 mmol/L (3.6-5.0) 09/24/17 05:30 Chloride 114 mmol/L (98-107) H 09/24/17 05:30 Carbon Dioxide 19 mmol/L (21-33) L 09/24/17 05:30 Anion Gap 11 (10-20) 09/24/17 05:30 BUN 7 mg/dL (7-21) 09/24/17 05:30 Creatinine 0.8 mg/dl (0.8-1.5) 09/24/17 05:30 Est GFR ( Amer) > 60 09/24/17 05:30 Est GFR (Non-Af Amer) > 60 09/24/17 05:30 Random Glucose 88 mg/dL (70-110) 09/24/17 05:30 Calcium 8.5 mg/dL (8.4-10.5) 09/24/17 05:30 Phosphorus 3.6 mg/dL (2.5-4.5) 09/24/17 05:30 Magnesium 2.0 mg/dL (1.7-2.2) 09/24/17 05:30 Total Bilirubin 0.7 mg/dL (0.2-1.3) 09/24/17 05:30 AST 47 U/L (17-59) 09/24/17 05:30 ALT 59 U/L (7-56) H 09/24/17 05:30 Alkaline Phosphatase 64 U/L (38-126) 09/24/17 05:30 Lactate Dehydrogenase 730 U/L (333-699) H 09/21/17 22:16 Total Creatine Kinase 835 U/L (35-230) H 09/23/17 05:30 CK-MB (CK-2) 6.8 ng/mL (0.0-3.6) H 09/23/17 05:30 CK-MB (CK-2) % 0.8 % (2.5-3.0) L 09/23/17 05:30 Troponin I < 0.01 ng/mL D 09/22/17 14:45 Total Protein 5.9 g/dL (5.8-8.3) 09/24/17 05:30 Albumin 3.1 g/dL (3.0-4.8) 09/24/17 05:30 Globulin 2.8 gm/dL 09/24/17 05:30 Albumin/Globulin Ratio 1.1 (1.1-1.8) 09/24/17 05:30 Triglycerides 96 mg/dL (35-160) 09/22/17 06:50 Cholesterol 157 mg/dL (130-200) 09/22/17 06:50 LDL Cholesterol Direct 76 mg/dL (0-129) 09/22/17 06:50 HDL Cholesterol 71 mg/dL (29-60) H 09/22/17 06:50 TSH 3rd Generation 4.31 mIU/mL (0.46-4.68) 09/22/17 07:00 Urine Color Yellow (YELLOW) 09/22/17 08:50 Urine Appearance Clear (CLEAR) 09/22/17 08:50 Urine pH 6.5 (4.7-8.0) 09/22/17 08:50 Ur Specific Dieterich 1.025 (1.005-1.035) 09/22/17 08:50 Urine Protein Negative mg/dL (<30 mg/dL) 09/22/17 08:50 Urine Glucose (UA) Negative mg/dL (NEGATIVE) 09/22/17 08:50 Urine Ketones Negative mg/dL (NEGATIVE) 09/22/17 08:50 Urine Blood Negative (NEGATIVE) 09/22/17 08:50 Urine Nitrate Negative (NEGATIVE) 09/22/17 08:50 Urine Bilirubin Negative (NEGATIVE) 09/22/17 08:50 Urine Urobilinogen 0.2 E.U./dL (<1 E.U./dL) 09/22/17 08:50 Ur Leukocyte Esterase Negative Kiersten/uL (NEGATIVE) 09/22/17 08:50 Urine Opiates Screen Negative (NEGATIVE) 09/22/17 08:50 Urine Methadone Screen Negative (NEGATIVE) 09/22/17 08:50 Ur Barbiturates Screen Negative (NEGATIVE) 09/22/17 08:50 Ur Phencyclidine Scrn Negative (NEGATIVE) 09/22/17 08:50 Ur Amphetamines Screen Positive (NEGATIVE) H 09/22/17 08:50 U Benzodiazepines Scrn Positive (NEGATIVE) H 09/22/17 08:50 U Oth Cocaine Metabols Positive (NEGATIVE) H 09/22/17 08:50 U Cannabinoids Screen Negative (NEGATIVE) 09/22/17 08:50 Alcohol, Quantitative < 10 mg/dL (0-10) 09/21/17 22:16 RPR Nonreactive (NONREACTIVE) 09/22/17 14:45 Hepatitis A IgM Ab Negative (NEGATIVE) 09/22/17 14:45 Hep Bs Antigen Negative (NEGATIVE) 09/22/17 14:45 Hep B Core IgM Ab Negative (NEGATIVE) 09/22/17 14:45 Hepatitis C Antibody Negative (NEGATIVE) 09/22/17 14:45 HIV 1&2 Antibody Screen Negative (NEGATIVE) 09/22/17 14:45 - Hospital Course Hospital Course: Upon Admission 26-year-old male with past medical history of alcohol abuse and multi drug use including cocaine and crystal meth to the ED with chest pain. Patient states chest pain began at 5 PM today patient stated he was home sitting down when he felt like there was a crushing force on his chest. He rated the pain a 9 out of 10 and also stated both of his arms felt numb. He denied radiation to the neck or jaw and patient has never experienced pain like this ever before. Patient then told his boyfriend to bring him into the hospital . Patient states that along with the chest pain he also had increased sweating. Patient admits to cocaine use possibly yesterday and also use of crystal meth for the first time yesterday. His last drink was earlier this morning and it was a mixed drink. Patient also states that he has had diarrhea for the past two months in his last episode of diarrhea was in this morning and was watery in consistency. Patient denies shortness of breath, nausea, vomiting, fever, chills, abdominal pain or any other complaints at this time. Patient admitted to [facility]. EKG showed no acute changes and troponin was trending down. Patient was placed on CIWA protocol and monitored for withdrawal. Patient had an episode of agitation overnight on 09/23 as he was experiencing bizarre thoughts and tried to leave. Patient had a 1:1 sitter and was placed on 4 point restraints and psych added Geodon prn. The following morning restraints were removed and patient's agitation had improved. Ativan was continued when necessary and Librium was tapered. LFTS trended down during hospital stay and HIV was negative. Patient's CPK was also trending down. On day of discharge patient was deemed medically stable for discharge. He denied any suicidal/ homicidal ideations and denied any visual or auditory hallucinations. 1) Agitation: likely secondary to polysubstance abuse and withdrawal. resolved 2) Chest pain: ACS ruled out 3) Rhabdomyolysis: CPK trended down and patient was making good UO 4) Alcohol withdrawal: patient d/c on Librium for 3 days and on multivitamins, folic acid, and thiamine 5) Conjunctivitis: resolved Upon Discharge Patient stable for discharge home as per hospitalist team. Patient to take medications as prescribed: -Librium 10mg po TID for 3 days PRN Disp#9 -Folic acid 1mg po qdaily Disp#30 -Multivitamin 1tab po qdaily Disp#30 -Protonix 40mg po qdaily Disp#30 -Thiamine 100mg po qdaily Disp#30 Patient recommended to abstain from alcohol and drugs. Patient to follow up with PMD within 7 days where he will review Echo results. If symptoms persist or worsen patient to visit ED immediately. Instructions discussed in detail with patient who understands and agrees. Please note this is a discharge summary. For full hospital course please refer to medical records. Discharge Exam - Head Exam Head Exam: ATRAUMATIC, NORMAL INSPECTION, NORMOCEPHALIC - Eye Exam Eye Exam: EOMI, Normal appearance, PERRL. absent: Conjunctival injection, Scleral icterus Pupil Exam: NORMAL ACCOMODATION - ENT Exam ENT Exam: Mucous Membranes Moist - Neck Exam Neck exam: Full Rom, Normal Inspection - Respiratory Exam Respiratory Exam: Clear to PA & Lateral, NORMAL BREATHING PATTERN, UNREMARKABLE. absent: Chest Wall Tenderness, Rales, Rhonchi, Wheezes, Respiratory Distress - Cardiovascular Exam Cardiovascular Exam: REGULAR RHYTHM, RRR, +S1, +S2. absent: Systolic Murmur - GI/Abdominal Exam GI & Abdominal Exam: Normal Bowel Sounds, Soft. absent: Firm, Guarding, Rigid, Tenderness - Extremities Exam Extremities exam: normal capillary refill, normal inspection, pedal pulses present - Back Exam Back exam: NORMAL INSPECTION. absent: rash noted - Neurological Exam Neurological exam: Alert, CN II-XII Intact, Normal Gait, Oriented x3 - Psychiatric Exam Psychiatric exam: Normal Affect, Normal Mood - Skin Skin Exam: Dry, Intact, Normal Color, Warm Discharge Plan - Discharge Medications Prescriptions: chlordiazePOXIDE [Librium] 10 mg PO TID PRN 3 Days #9 cap PRN Reason: Anxiety Folic Acid 1 mg PO DAILY #30 tab Multivitamin Therapeutic Tab [Thera Tab] 1 tab PO 0800 #30 tab Pantoprazole [Protonix EC Tab] 40 mg PO 0600 #30 ect Thiamine [Vitamin B1 Tab] 100 mg PO DAILY #30 tab - Follow Up Plan Condition: FAIR Disposition: HOME/ ROUTINE Instructions: Chest Pain (DC), Chest Pain (GEN), How to Stop Smoking (DC), Cigarette Smoking and Your Health (GEN), Cocaine Abuse (DC), Alcohol Intoxication (DC), Abuse of Alcohol (DC), Leukocytosis (DC), Leukocytosis (GEN) , Alcohol Withdrawal (DC) Additional Instructions: Patient stable for discharge home as per hospitalist team. Patient to take medications as prescribed: -Librium 10mg po TID for 3 days PRN Disp#9 -Folic acid 1mg po qdaily Disp#30 -Multivitamin 1tab po qdaily Disp#30 -Protonix 40mg po qdaily Disp#30 -Thiamine 100mg po qdaily Disp#30 Patient recommended to abstain from alcohol and drugs. Patient to follow up with PMD within 7 days where he will review Echo results. If symptoms persist or worsen patient to visit ED immediately. Instructions discussed in detail with patient who understands and agrees. Referrals: Esvin Sears MD [Primary Care Provider] - <Alejandro Xiong - Last Filed: 09/25/17 16:03> Provider - Provider Date of Admission: 09/22/17 00:24 Attending physician: Alejandro Xiong MD Primary care physician: Esvin Sears MD [facility] Hospital Course - Lab Results Lab Results: Most Recent Lab Values WBC 7.0 10^3/ul (4.5-11.0) 09/25/17 06:40 RBC 3.79 10^6/uL (3.5-6.1) 09/25/17 06:40 Hgb 12.6 g/dL (14.0-18.0) L 09/25/17 06:40 Hct 38.5 % (42.0-52.0) L 09/25/17 06:40 MCV 101.6 fl (80.0-105.0) 09/25/17 06:40 MCH 33.2 pg (25.0-35.0) 09/25/17 06:40 MCHC 32.7 g/dl (31.0-37.0) 09/25/17 06:40 RDW 13.1 % (11.5-14.5) 09/25/17 06:40 Plt Count 176 10^3/uL (120.0-450.0) 09/25/17 06:40 MPV 10.2 fl (7.0-11.0) 09/25/17 06:40 Gran % 53.6 % (50.0-68.0) 09/25/17 06:40 Lymph % (Auto) 35.7 % (22.0-35.0) H 09/25/17 06:40 [place] % (Auto) 7.6 % (1.0-6.0) H 09/25/17 06:40 Eos % (Auto) 2.0 % (1.5-5.0) 09/25/17 06:40 Baso % (Auto) 1.1 % (0.0-3.0) 09/25/17 06:40 Gran # 3.75 (1.4-6.5) 09/25/17 06:40 Lymph # 2.5 (1.2-3.4) 09/25/17 06:40 [place] # 0.5 (0.1-0.6) 09/25/17 06:40 Eos # 0.1 (0.0-0.7) 09/25/17 06:40 Baso # 0.08 K/mm3 (0.0-2.0) 09/25/17 06:40 PT 11.6 SECONDS (9.4-12.5) 09/21/17 22:16 INR 1.06 (0.93-1.08) 09/21/17 22:16 APTT 24.8 Seconds (25.1-36.5) L 09/21/17 22:16 Sodium 141 mmol/L (132-148) 09/24/17 05:30 Potassium 3.9 mmol/L (3.6-5.0) 09/24/17 05:30 Chloride 114 mmol/L (98-107) H 09/24/17 05:30 Carbon Dioxide 19 mmol/L (21-33) L 09/24/17 05:30 Anion Gap 11 (10-20) 09/24/17 05:30 BUN 7 mg/dL (7-21) 09/24/17 05:30 Creatinine 0.8 mg/dl (0.8-1.5) 09/24/17 05:30 Est GFR ( Amer) > 60 09/24/17 05:30 Est GFR (Non-Af Amer) > 60 09/24/17 05:30 Random Glucose 88 mg/dL (70-110) 09/24/17 05:30 Calcium 8.5 mg/dL (8.4-10.5) 09/24/17 05:30 Phosphorus 3.6 mg/dL (2.5-4.5) 09/24/17 05:30 Magnesium 2.0 mg/dL (1.7-2.2) 09/24/17 05:30 Total Bilirubin 0.7 mg/dL (0.2-1.3) 09/24/17 05:30 AST 47 U/L (17-59) 09/24/17 05:30 ALT 59 U/L (7-56) H 09/24/17 05:30 Alkaline Phosphatase 64 U/L (38-126) 09/24/17 05:30 Lactate Dehydrogenase 730 U/L (333-699) H 09/21/17 22:16 Total Creatine Kinase 835 U/L (35-230) H 09/23/17 05:30 CK-MB (CK-2) 6.8 ng/mL (0.0-3.6) H 09/23/17 05:30 CK-MB (CK-2) % 0.8 % (2.5-3.0) L 09/23/17 05:30 Troponin I < 0.01 ng/mL D 09/22/17 14:45 Total Protein 5.9 g/dL (5.8-8.3) 09/24/17 05:30 Albumin 3.1 g/dL (3.0-4.8) 09/24/17 05:30 Globulin 2.8 gm/dL 09/24/17 05:30 Albumin/Globulin Ratio 1.1 (1.1-1.8) 09/24/17 05:30 Triglycerides 96 mg/dL (35-160) 09/22/17 06:50 Cholesterol 157 mg/dL (130-200) 09/22/17 06:50 LDL Cholesterol Direct 76 mg/dL (0-129) 09/22/17 06:50 HDL Cholesterol 71 mg/dL (29-60) H 09/22/17 06:50 TSH 3rd Generation 4.31 mIU/mL (0.46-4.68) 09/22/17 07:00 Urine Color Yellow (YELLOW) 09/22/17 08:50 Urine Appearance Clear (CLEAR) 09/22/17 08:50 Urine pH 6.5 (4.7-8.0) 09/22/17 08:50 Ur Specific Dieterich 1.025 (1.005-1.035) 09/22/17 08:50 Urine Protein Negative mg/dL (<30 mg/dL) 09/22/17 08:50 Urine Glucose (UA) Negative mg/dL (NEGATIVE) 09/22/17 08:50 Urine Ketones Negative mg/dL (NEGATIVE) 09/22/17 08:50 Urine Blood Negative (NEGATIVE) 09/22/17 08:50 Urine Nitrate Negative (NEGATIVE) 09/22/17 08:50 Urine Bilirubin Negative (NEGATIVE) 09/22/17 08:50 Urine Urobilinogen 0.2 E.U./dL (<1 E.U./dL) 09/22/17 08:50 Ur Leukocyte Esterase Negative Kiersten/uL (NEGATIVE) 09/22/17 08:50 Urine Opiates Screen Negative (NEGATIVE) 09/22/17 08:50 Urine Methadone Screen Negative (NEGATIVE) 09/22/17 08:50 Ur Barbiturates Screen Negative (NEGATIVE) 09/22/17 08:50 Ur Phencyclidine Scrn Negative (NEGATIVE) 09/22/17 08:50 Ur Amphetamines Screen Positive (NEGATIVE) H 09/22/17 08:50 U Benzodiazepines Scrn Positive (NEGATIVE) H 09/22/17 08:50 U Oth Cocaine Metabols Positive (NEGATIVE) H 09/22/17 08:50 U Cannabinoids Screen Negative (NEGATIVE) 09/22/17 08:50 Alcohol, Quantitative < 10 mg/dL (0-10) 09/21/17 22:16 RPR Nonreactive (NONREACTIVE) 09/22/17 14:45 Hepatitis A IgM Ab Negative (NEGATIVE) 09/22/17 14:45 Hep Bs Antigen Negative (NEGATIVE) 09/22/17 14:45 Hep B Core IgM Ab Negative (NEGATIVE) 09/22/17 14:45 Hepatitis C Antibody Negative (NEGATIVE) 09/22/17 14:45 HIV 1&2 Antibody Screen Negative (NEGATIVE) 09/22/17 14:45 Attending/Attestation - Attestation I have personally seen and examined this patient.: Yes I have fully participated in the care of the patient.: Yes I have reviewed all pertinent clinical information, including history, physical exam and plan: Yes Notes (Text): 09/25/17 16:00 attending note; Patient seen and examined with the resident. Patient is a 26-year-old male with a history of alcohol abuse and multiple drug abuse including cocaine, amphetamine is admitted with palpitations and anxiety. Patient has severe alcohol and drug withdrawal symptoms. Treated with Ativan. Currently calm. Alert, awake and oriented. Tolerating diet. Ambulating fine. Psychiatric evaluation appreciated. Alcohol withdrawal; resolved. Rhabdomyolysis; secondary to multiple drug abuse. Treated with IV fluids. Currently rhabdomyolysis Filer Resolved. Elevated LFTs; secondary to alcohol abuse. Trending down. hepatitis profile, HIV is negative. Upon discharge the patient will be referred to [facility] clinic/ PMD DR. sears. Diagnosis; Alcohol abuse Cocaine and amphatemine use
[2017-09-25] MEDS: Magnesium Chloride 64 mg ER Tab PO SCH (11:05)
--- NOTE | 2017-09-25 19:03 | CARD ---
APPROVED REPORT EXAM: Two-dimensional and M-mode echocardiogram with Doppler and color Doppler. INDICATION Chest Pain 2D DIMENSIONS Left Atrium (2D)4.2 (1.6-4.0cm)IVSd1.1 (0.7-1.1cm) LVDd5.1 (3.9-5.9cm)PWd1.2 (0.7-1.1cm) LVDs3.8 (2.5-4.0cm)FS (%) 26.0 % LVEF (%)50.6 (>50%) M-Mode DIMENSIONS Aortic Root3.40 (2.2-3.7cm)Aortic Cusp Exc.2.20 (1.5-2.0cm) Aortic Valve AoV Peak Dvwclkte708.0cm/Anahi Peak GR.5mmHg Mitral Valve MV E Jmcrdktv32.4cm/sMV A Bsulwslq75.2cm/sE/A ratio1.3 TDI E/Lateral E'0.0E/Medial E'0.0 Pulmonary Valve PV Peak Ncjpcxze51.0cm/sPV Peak Grad.2mmHg Tricuspid Valve TR Peak [id number]/sRAP [id number] Peak Gr.23mmHg [id number] LEFT VENTRICLE The left ventricle is normal size. There is normal left ventricular wall thickness. Left ventricle systolic function is borderline. There is normal LV segmental wall motion. The left ventricular diastolic function is normal. RIGHT VENTRICLE The right ventricle is normal size. There is normal right ventricular wall thickness. The right ventricular systolic function is normal. ATRIA The left atrium is borderline dilated. The right atrium size is normal. AORTIC VALVE The aortic valve is normal in structure. No aortic regurgitation is present. There is no aortic valvular stenosis. MITRAL VALVE The mitral valve is normal in structure. Mitral regurgitation is trace. TRICUSPID VALVE The tricuspid valve is normal in structure. There is trace tricuspid regurgitation. PULMONIC VALVE The pulmonary valve is normal in structure. There is trace pulmonic valvular regurgitation. GREAT VESSELS The aortic root is normal in size. The IVC is normal in size and collapses >50% with inspiration. PERICARDIAL EFFUSION There is no pericardial effusion. <Conclusion> The left ventricle is normal size. There is normal left ventricular wall thickness. Left ventricle systolic function is borderline. There is normal LV segmental wall motion. The left ventricular diastolic function is normal.
== END 2017-09-25 14:22 | disposition home or self-care (01) | DRG 897 ==
LOC: ED 21:22 → ERH 09-22 00:24 → 2RSO 09-22 18:35 → 5RSO 09-24 14:05
PROVIDERS: ADMIT Internal Medicine; ATTEND Internal Medicine
DX: F10.231 Alcohol dependence with withdrawal delirium (principal); E87.2 Acidosis; M62.82 Rhabdomyolysis; R07.89 Other chest pain; F41.1 Generalized anxiety disorder; F14.10 Cocaine abuse, uncomplicated; F15.10 Other stimulant abuse, uncomplicated; E83.42 Hypomagnesemia; F17.210 Nicotine dependence, cigarettes, uncomplicated; H10.9 Unspecified conjunctivitis; D72.829 Elevated white blood cell count, unspecified; Y90.0 Blood alcohol level of less than 20 mg/100 ml; Z78.1 Physical restraint status

== ENCOUNTER 2017-10-09 12:44 | Emergency (ER) | payer MEDICAID ==
[2017-10-09 13:07] VITALS: BMI 26.6
[2017-10-09] MEDS ORDERED: Folic Acid 1 MG, Thiamine 100 MG, Multivitamin (MVI) 10 ML in Dextrose 5% In Water 1,00... IV ONE (13:08)
[2017-10-09] MEDS ORDERED: Sodium Chloride 0.9% 500 ML IV STA (13:08)
[2017-10-09 13:10] VITALS: TEMP 97.9
--- NOTE | 2017-10-09 13:11 | ED PDOC ---
Arrival/HPI - General Chief Complaint: Alcohol Ingestion Time Seen by Provider: 10/09/17 13:08 Historian: Patient EM Caveat: Respiratory Distress - History of Present Illness Narrative History of Present Illness (Text): 10/09/17 16:17 pt p/w + severe jitters/palpitations, not feeling well, + weakness; pt last drink of alcohol was yesterday, at least 1 pint of alcohol daily over the last few days; pt states he was recently admitted for alcohol W/D; pt ran out of medications that prevents w/d a few days ago and pt started to drink again as a result; pt states + headache, no fever/chills/sweats, no cp, + extremely sob/ inability to get a good deep breath, no abd pain, no n/v, no numbness/tingling; pt denied urinary/bowel changes, no fall/trauma/sick contact, no travel; pt denied SI/HI, pt denied hallucinations - visual/tactile/auditory; pt is here for further eval; pt's without other complaints. Time/Duration: Other (< 1 day) Symptom Onset: Sudden Symptom Course: Worsening Quality: Tightness Severity Level: Severe Activities at Onset: Rest Context: Standing Past Medical History - Provider Review Nursing Documentation Reviewed: Yes - Travel History Have you recently traveled outside [place] w/in the past 3 mons?: No - Past History Past History: No Previous (alcohol dependent) - Infectious Disease Hx of Infectious Diseases: None - Tetanus Immunization Tetanus Immunization: Unknown - Past Medical History Past Medical History: No Previous - Cardiac Hx Cardiac Disorders: No - Pulmonary Hx Respiratory Disorders: No - Neurological Hx Neurological Disorder: No - HEENT Hx HEENT Disorder: No - Renal Hx Renal Disorder: No - Endocrine/Metabolic Hx Endocrine Disorders: No - Hematological/Oncological Hx Blood Disorders: No - Integumentary Hx Dermatological Disorder: No - Musculoskeletal/Rheumatological Hx Musculoskeletal Disorders: No - Gastrointestinal Hx Gastrointestinal Disorders: Yes (GASTRITIS,APPENDICITIS) - Genitourinary/Gynecological Hx Genitourinary Disorders: No - Psychiatric Hx Psychophysiologic Disorder: No Hx Substance Use: Yes - Past Surgical History Past Surgical History: No Previous - Surgical History Hx Appendectomy: Yes - Anesthesia Hx Anesthesia: Yes Hx Anesthesia Reactions: No - Suicidal Assessment Suicidal Thoughts: No Feels Threatened In Home Enviroment: No Family/Social History - Physician Review Nursing Documentation Reviewed: Yes Family/Social History: No Known Family HX Smoking Status: Heavy Smoker > 10 Cigarettes Daily Hx Alcohol Use: Yes Hx Substance Use: Yes Hx Substance Use Treatment: No Allergies/Home Meds Allergies/Adverse Reactions: Allergies No Known Allergies Allergy (Verified 10/09/17 13:10) Review of Systems - Review of Systems Constitutional: Fatigue Eyes: Normal ENT: Normal Respiratory: SOB Cardiovascular: Palpitations. absent: Chest Pain, Syncope Gastrointestinal: Normal Genitourinary Male: Normal Musculoskeletal: Normal Skin: Normal Neurological: Dizziness Endocrine: Normal Hemo/Lymphatic: Normal Psychiatric: Anxiety. absent: Suicidal Ideation Physical Exam Vital Signs Reviewed: Yes (elevated HR/BP) Vital Signs Temp Pulse Resp BP Pulse Ox 10/09/17 14:11 81 18 136/72 96 10/09/17 13:07 97.9 F 108 H 18 163/91 H 98 10/09/17 12:45 97.9 F 108 H 18 163/91 H 98 Temperature: Afebrile Blood Pressure: Hypertensive Pulse: Tachycardic Respiratory Rate: Tachypneic Appearance: Positive for: Uncomfortable, Other (jittery, pacing in his room, alert/awake, GCS = 15, mildly uncooperative) Pain Distress: Mild Mental Status: Positive for: Alert and Oriented X 3, Agitated - Systems Exam Head: Present: Atraumatic, Normocephalic Pupils: Present: PERRL Extroacular Muscles: Present: EOMI Conjunctiva: Present: Normal Ears: Present: Normal Mouth: Present: Moist Mucous Membranes Neck: Present: Normal Range of Motion Respiratory/Chest: Present: Clear to Auscultation, Good Air Exchange, Tachypneic Cardiovascular: Present: Normal S1, S2, Tachycardic, Other (no murmur) Abdomen: Present: Normal Bowel Sounds, Other (well nourished male, no focal tenderness, no pina's sign, no mcburney's point tenderness; no masses/rebound/ guarding/rigidity). No: Tenderness, Distention Back: Present: Normal Inspection Upper Extremity: Present: Normal Inspection, Normal ROM, Capillary Refill < 2s Lower Extremity: Present: Normal Inspection, Normal ROM, Capillary Refill < 2 s Neurological: Present: GCS=15, CN II-XII Intact, Speech Normal Skin: Present: Warm, Normal Color, Other (cap refill < 1sec, no ulcerations, no petechiae) Psychiatric: Present: Alert, Oriented x 3, Anxious, Agitated Medical Decision Making ED Course and Treatment: 10/09/17 13:05 pt with alcohol dependency; last drink was last night; pt claims to have ran out of w/d prevention medication recently and thats why he drank Plan: alcohol w/d -- EKG -- Chest X-ray -- Labs -- Urinalysis -- supportive care -- Reassess and disposition Progress Notes: 10/09/2017 14:01 Chest X-ray HISTORY: cant breath, palpitaions COMPARISON: 09/21/2017 FINDINGS: LUNGS: No active pulmonary disease. PLEURA: No siginificant pleural effusion identified, no pneumothorax apparent. CARDIOVASCULAR: Normal. OSSEOUS STRUCTURES: No siginificant abdnormalities. VISUALIZED UPPER ABDOMEN: Normal. OTHER FINDINGS: None. IMPRESSION: No active disease. Dictator: Missael Galindo MD 10/09/17 16:24 pt felt much improved currently pt is not jittery/agitated/pacing in his exam room currently pt is resting comfortably in bed vital signs are improving 10/09/17 16:27 pt is made aware of his medical results, and is recommended for admission pt refused pt states he can not stay in the hospital due to too many things at home he needs to take care of pt chose to leave AMA pt is aware that potential life-threatening illness remains and pt can lose limb /or worse case, can pt is encouraged to see his doctor as soon as possible pt is aware that if you change your mind, he is encouraged to return to ED immediately for further care/management Re-evaluation Time: 16:05 Reassessment Condition: Improved - Critical Care Critical Care Minutes: Other (35min) Narrative Critical Care (Text): 10/09/17 16:29 critical care time: 35min, excluding procedure time, excluding time teaching residents/students/mid-level providers; including initial eval/diagnosis, diagnostic interpretation, re-eval, consultations, final disposition - Lab Interpretations Lab Results: 10/09/17 13:00 10/09/17 13:00 Lab Results 10/09/17 16:19: Urine Color Yellow, Urine Appearance Clear, Urine pH 6.0, Ur Specific Cameron >= 1.030, Urine Protein Trace H, Urine Glucose (UA) Negative, Urine Ketones Negative, Urine Blood Negative, Urine Nitrate Negative, Urine Bilirubin Negative, Urine Urobilinogen 0.2, Ur Leukocyte Esterase Negative, Urine RBC Negative, Urine WBC 0 - 2, Ur Epithelial Cells None, Urine Bacteria Few, Coarse Granular Casts Trace H 10/09/17 13:00: Alcohol, Quantitative 63 H 10/09/17 13:00: Salicylates < 1 L, Acetaminophen < 10.0 L 10/09/17 13:00: Sodium 143, Potassium 3.6, Chloride 105, Carbon Dioxide 19 L, Anion Gap 21 H, BUN 12, Creatinine 0.9, Est GFR ( Amer) > 60, Est GFR ( Non-Af Amer) > 60, Random Glucose 127 H, Calcium 9.9, Total Bilirubin 0.6, AST 82 H D, ALT 91 H, Alkaline Phosphatase 109, Total Creatine Kinase 228, Troponin I < 0.01, Total Protein 8.7 H, Albumin 5.1 H, Globulin 3.6, Albumin/Globulin Ratio 1.4 10/09/17 13:00: WBC 10.8 D, RBC 4.45, Hgb 15.1 D, Hct 43.9, MCV 98.7, MCH 33.9 , MCHC 34.4, RDW 12.8, Plt Count 226, MPV 10.7, Gran % 54.9, Lymph % (Auto) 37.9 H, [place] % (Auto) 5.4, Eos % (Auto) 1.2 L, Baso % (Auto) 0.6, Gran # 5.94, Lymph # 4.1 H, [place] # 0.6, Eos # 0.1, Baso # 0.06 I have reviewed the lab results: Yes Interpretation: Abnormal lab values (+ etoh, mildly elevated LFTs) - RAD Interpretation Narrative RAD Interpretations (Text): 10/09/17 16:26 FINDINGS: LUNGS: No active pulmonary disease. PLEURA: No significant pleural effusion identified, no pneumothorax apparent. CARDIOVASCULAR: Normal. OSSEOUS STRUCTURES: No significant abnormalities. VISUALIZED UPPER ABDOMEN: Normal. OTHER FINDINGS: None. IMPRESSION: No active disease. Radiology Orders: 10/09/17 13:09 CHEST PORTABLE [RAD] Stat Funeral Assistant: Radiologist - Medication Orders Current Medication Orders: Folic Acid 1 mg/ Thiamine HCl 100 mg/ Multivitamins/Vitamin C 10 ml/ Dextrose 1 ,011.2 mls @ 100 mls/hr IV ONCE ONE Stop: 10/09/17 23:14 Last Admin: 10/09/17 14:14 Dose: 100 mls/hr eMAR Start Stop Document 10/09/17 14:14 SRE (Rec: 10/09/17 14:14 SRE [id number]) Intravenous Solution Start Date 10/09/17 Start Time 14:14 Discontinued Medications Chlordiazepoxide (Librium) 50 mg PO STAT STA PRN Reason: Protocol Stop: 10/09/17 13:11 Last Admin: 10/09/17 13:20 Dose: 50 mg Sodium Chloride (Sodium Chloride 0.9%) 500 mls @ 1,000 mls/hr IV .Q30M STA Stop: 10/09/17 13:37 Last Admin: 10/09/17 13:19 Dose: 1,000 mls/hr eMAR Start Stop Document 10/09/17 13:19 SRE (Rec: 10/09/17 13:20 SRE [id number]) Intravenous Solution Start Date 10/09/17 Start Time 13:20 End Date 10/09/17 End time 14:30 Total Infusion Time 70 Lorazepam (Ativan) 2 mg IVP STAT STA Stop: 10/09/17 13:09 Last Admin: 10/09/17 13:20 Dose: 2 mg IVP Administration Document 10/09/17 13:20 SRE (Rec: 10/09/17 13:20 SRE [id number]) Charges for Administration # of IVP Administrations 1 Disposition/Present on Arrival - Present on Arrival Any Indicators Present on Arrival: Yes History of DVT/PE: No History of Uncontrolled Diabetes: No Urinary Catheter: No History of Decub. Ulcer: No History Surgical Site Infection Following: None - Disposition Have Diagnosis and Disposition been Completed?: Yes Diagnosis: Alcohol withdrawal, Alcohol dependence, Anxiety Disposition: AGAINST MEDICAL ADVICE Disposition Time: 16:31 Patient Plan: Discharge (AMA) Patient Problems: Current Active Problems Problem Status Onset Alcohol dependence Acute Alcohol withdrawal Acute Anxiety Acute Condition: STABLE Discharge Instructions (ExitCare): Alcohol Withdrawal (ED), Anxiety (ED), Alcohol Dependence (ED) Print Language: NICARAGUAN Additional Instructions: you are leaving against medical advice potential life-threatening illness remains and pt can lose limb/or worse case, can you are to see your doctor as soon as possible if you change your mind, you are encouraged to return to ED immediately for further care/management [KYAW ZURITA], thank you for letting us take care of you today. Your provider was [FATOU WASSERMAN MD]. You were treated for [Alcohol Withdraw, alcohol dependency]. The emergency medical care you received today was directed at your acute symptoms. If you were prescribed any medication, please fill it and take as directed. It may take several days for your symptoms to resolve. Return to the Emergency Department if your symptoms worsen, do not improve, or if you have any other problems. Please contact your doctor or call one of the physicians/clinics you have been referred to that are listed on the Patient Visit Information form that is included in your discharge packet. Bring any paperwork you were given at discharge with you along with any medications you are taking to your follow up visit. Our treatment cannot replace ongoing medical care by a primary care provider (PCP) outside of the emergency department. Thank you for allowing the [facility] team to be part of your care today. If you had an X-Ray or CT scan: A Radiologist will review the ED reading if any change in treatment is needed we will contact you. If you had a blood, urine, or wound culture: It will take several days for the results, if any change in treatment is needed we will contact you. If you had an STI test: It will take 48 hours for the results. Please call after 1 week if you have not heard back. Referrals: PCP,NO [Family Provider] - Follow up with primary Forms: [employer] (Vietnamese)
[2017-10-09 13:30] LABS: BASO # 0.06 K/mm3 (0.0-2.0); BASO % 0.6 % (0.0-3.0); EOS # 0.1 (0.0-0.7); EOS % 1.2 % (1.5-5.0); GRAN # 5.94 (1.4-6.5); GRAN % 54.9 % (50.0-68.0); HEMATOCRIT 43.9 % (42.0-52.0); LYMPH # 4.1 (1.2-3.4); LYMPH % 37.9 % (22.0-35.0); MEAN CELL VOLUME 98.7 fl (80.0-105.0); MEAN CORPUSCULAR HEMOGLOBIN 33.9 pg (25.0-35.0); MEAN CORPUSCULAR HGB CONC 34.4 g/dl (31.0-37.0); MEAN PLATELET VOLUME 10.7 fl (7.0-11.0); MONO # 0.6 (0.1-0.6); MONO % 5.4 % (1.0-6.0); RED CELL DISTRIBUTION WIDTH 12.8 % (11.5-14.5); WHITE BLOOD COUNT 10.8 10^3/ul (4.5-11.0)
[2017-10-09 13:50] LABS: TROPONIN I < 0.01 ng/mL
--- NOTE | 2017-10-09 14:02 | RAD ---
HISTORY: cant breath, palpitations COMPARISON: 09/21/2017 FINDINGS: LUNGS: No active pulmonary disease. PLEURA: No significant pleural effusion identified, no pneumothorax apparent. CARDIOVASCULAR: Normal. OSSEOUS STRUCTURES: No significant abnormalities. VISUALIZED UPPER ABDOMEN: Normal. OTHER FINDINGS: None. IMPRESSION: No active disease.
[2017-10-09 14:08] LABS: ALB/GLOB RATIO 1.4 (1.1-1.8); ALKALINE PHOSPHATASE 109 U/L (38-126); ALT/SGPT 91 U/L (7-56); AST/SGOT 82 U/L (17-59); BILIRUBIN,TOTAL 0.6 mg/dL (0.2-1.3); BLOOD UREA NITROGEN 12 mg/dL (7-21); CALCIUM 9.9 mg/dL (8.4-10.5); CARBON DIOXIDE 19 mmol/L (21-33); CHLORIDE 105 mmol/L (98-107); GFR AFRICAN-AMERICAN > 60; GLUCOSE,RANDOM 127 mg/dL (70-110); POTASSIUM 3.6 mmol/L (3.6-5.0); SODIUM 143 mmol/L (132-148); TOTAL PROTEIN 8.7 g/dL (5.8-8.3)
[2017-10-09 16:23] LABS: URINE BILIRUBIN NEGATIVE (NEGATIVE); URINE BLOOD NEGATIVE (NEGATIVE); URINE GLUCOSE (UA) NEGATIVE (NEGATIVE); URINE KETONE NEGATIVE (NEGATIVE); URINE LEUKOCYTE ESTERASE NEGATIVE Leu/uL (NEGATIVE); URINE PROTEIN TRACE mg/dL (<30 mg/dL); URINE UROBILINOGEN 0.2 E.U./dL (<1 E.U./dL)
[2017-10-09 16:24] LABS: URINE APPEARANCE CLEAR (CLEAR); URINE COLOR YELLOW (YELLOW)
[2017-10-09 16:31] LABS: URINE RBC NEGATIVE /hpf (0-2)
[2017-10-09 16:32] LABS: URINE BACTERIA FEW (NEG); URINE WBC 0 - 2 /hpf (0-6)
[2017-10-09 16:38] VITALS: BP 105/79; PULSE 90; RESP 20; O2SAT 100
== END 2017-10-09 17:00 | disposition left against medical advice (07) ==
LOC: ED 12:44
DX: F10.239 Alcohol dependence with withdrawal, unspecified (principal); Y90.3 Blood alcohol level of 60-79 mg/100 ml; F41.9 Anxiety disorder, unspecified
CPT/HCPCS: 71010; 80053; 80320; 80324; 80329; 80345; 80346; 80349; 80353; 80358; 80361; 81001; 82550; 83992; 84484; 85025; 96361; 96374; 99284; J2060; J3411; J7040; J7070

== ENCOUNTER 2017-10-10 23:59 | Emergency (ER) | payer MEDICAID ==
[2017-10-11 00:09] VITALS: BMI 26.7
--- NOTE | 2017-10-11 00:12 | ED PDOC ---
Arrival/HPI - General Time Seen by Provider: 10/11/17 00:08 Historian: Patient - History of Present Illness Narrative History of Present Illness (Text): 10/11/17 00:12 Chidi Hopper is a 27 year old male who presents to the emergency department brought in by EMS for public intoxication. Patient admits to drinking alcohol tonight. Patient denies any fevers, chills, chest pain, shortness of breath, abdominal pain, nausea, vomiting, diarrhea, back pain, neck pain, urinary changes, headache, dizziness, or any other complaint. Symptom Onset: Gradual Symptom Course: Unchanged Activities at Onset: Light Context: Street Past Medical History - Provider Review Nursing Documentation Reviewed: Yes - Past History Past History: No Previous (alcohol dependent) - Infectious Disease Hx of Infectious Diseases: None - Tetanus Immunization Tetanus Immunization: Unknown - Past Medical History Past Medical History: No Previous - Cardiac Hx Cardiac Disorders: No - Pulmonary Hx Respiratory Disorders: No - Neurological Hx Neurological Disorder: No - HEENT Hx HEENT Disorder: No - Renal Hx Renal Disorder: No - Endocrine/Metabolic Hx Endocrine Disorders: No - Hematological/Oncological Hx Blood Disorders: No - Integumentary Hx Dermatological Disorder: No - Musculoskeletal/Rheumatological Hx Musculoskeletal Disorders: No - Gastrointestinal Hx Gastrointestinal Disorders: Yes (GASTRITIS,APPENDICITIS) - Genitourinary/Gynecological Hx Genitourinary Disorders: No - Psychiatric Hx Psychophysiologic Disorder: No Hx Substance Use: Yes - Past Surgical History Past Surgical History: No Previous - Surgical History Hx Appendectomy: Yes - Anesthesia Hx Anesthesia: Yes Hx Anesthesia Reactions: No - Suicidal Assessment Feels Threatened In Home Enviroment: No Family/Social History - Physician Review Nursing Documentation Reviewed: Yes Family/Social History: Unknown Family HX Smoking Status: Heavy Smoker > 10 Cigarettes Daily Hx Alcohol Use: Yes Hx Substance Use: Yes Hx Substance Use Treatment: No Allergies/Home Meds Allergies/Adverse Reactions: Allergies No Known Allergies Allergy (Verified 10/09/17 13:10) Review of Systems - Physician Review All systems were reviewed & negative as marked: Yes - Review of Systems Constitutional: Normal. absent: Fevers Eyes: Normal ENT: Normal Respiratory: Normal. absent: SOB, Cough Cardiovascular: Normal. absent: Chest Pain Gastrointestinal: Normal. absent: Abdominal Pain, Diarrhea, Nausea, Vomiting Genitourinary Male: Normal. absent: Dysuria, Frequency, Hematuria, Urinary Output Changes Musculoskeletal: Normal. absent: Back Pain, Neck Pain Skin: Normal. absent: Rash Neurological: Normal. absent: Headache, Dizziness Endocrine: Normal Hemo/Lymphatic: Normal Psychiatric: Other (+alcohol intoxication) Physical Exam Vital Signs Reviewed: Yes Vital Signs Temp Pulse Resp BP Pulse Ox 10/11/17 06:00 89 16 111/73 100 10/11/17 04:00 67 16 100/63 96 10/11/17 02:00 74 16 111/65 95 10/11/17 00:00 98.2 F 79 18 147/93 H 94 L Temperature: Afebrile Blood Pressure: Normal Pulse: Regular Respiratory Rate: Normal Appearance: Positive for: Well-Appearing, Non-Toxic, Comfortable Pain Distress: None Mental Status: Positive for: Alert and Oriented X 3 - Systems Exam Head: Present: Atraumatic, Normocephalic Pupils: Present: PERRL Extroacular Muscles: Present: EOMI Conjunctiva: Present: Normal Mouth: Present: Moist Mucous Membranes Neck: Present: Normal Range of Motion Respiratory/Chest: Present: Clear to Auscultation, Good Air Exchange. No: Respiratory Distress, Accessory Muscle Use Cardiovascular: Present: Regular Rate and Rhythm, Normal S1, S2. No: Murmurs Abdomen: Present: Normal Bowel Sounds. No: Tenderness, Distention, Peritoneal Signs Back: Present: Normal Inspection Upper Extremity: Present: Normal Inspection. No: Cyanosis, Edema Lower Extremity: Present: Normal Inspection. No: Edema Neurological: Present: GCS=15, CN II-XII Intact, Speech Normal Skin: Present: Warm, Dry, Normal Color. No: Rashes Psychiatric: Present: Alert, Oriented x 3, Intoxicated Medical Decision Making ED Course and Treatment: 10/11/17 00:12 Impression: 27 year old male brought in for public intoxication tonight. Differential Diagnosis included but are not limited to: public intoxication Plan: -- Labs, alcohol level -- Ativan -- Haldol -- Reassess and disposition Prior Visits: Notes and results from previous visits were reviewed. Progress Notes: Pt agitated, combative, and verbally abusive. Code Yahir called. Pt sedated and restrained for safety of staff. 10/11/17 07:[address] Mariscal, pending sobriety, re-assessment and final disposition. - Lab Interpretations Lab Results: 10/11/17 01:43 10/11/17 01:43 Lab Results 10/11/17 01:43: WBC 7.7 D, RBC 4.29, Hgb 14.7, Hct 43.3, MCV 100.9, MCH 34.3, MCHC 33.9, RDW 13.4, Plt Count 185, MPV 10.5 10/11/17 01:43: Alcohol, Quantitative 365 H* 10/11/17 01:43: Sodium 152 H, Potassium 4.0, Chloride 114 H, Carbon Dioxide 23, Anion Gap 19, BUN 11, Creatinine 0.8, Est GFR ( Amer) > 60, Est GFR (Non- Af Amer) > 60, Random Glucose 109, Calcium 8.5, Total Bilirubin 0.4, AST 81 H, ALT 83 H, Alkaline Phosphatase 103, Total Protein 7.7, Albumin 4.4, Globulin 3.3 , Albumin/Globulin Ratio 1.3 10/11/17 01:09: POC Glucose (mg/dL) 98 I have reviewed the lab results: Yes - Medication Orders Current Medication Orders: Discontinued Medications Chlordiazepoxide (Librium) 50 mg PO STAT STA Stop: 10/11/17 06:26 Haloperidol Lactate (Haldol) 5 mg IM STAT STA PRN Reason: Protocol Stop: 10/11/17 00:13 Last Admin: 10/11/17 00:14 Dose: 5 mg IM Administration Charges Document 10/11/17 00:14 YOVANY (Rec: 10/11/17 00:14 YOVANY [id number]) Injection Site MAR Injection Site Left Deltoid Charges for Administration # of IM Administrations 1 Lorazepam (Ativan) 2 mg IM ONCE ONE PRN Reason: Protocol Stop: 10/11/17 00:11 Last Admin: 10/11/17 00:14 Dose: 2 mg IM Administration Charges Document 10/11/17 00:14 YOVANY (Rec: 10/11/17 00:14 YOVANY [id number]) Injection Site MAR Injection Site Left Deltoid Charges for Administration # of IM Administrations 1 - Scribe Statement The provider has reviewed the documentation as recorded by the Stanley Martins Provider Scribe Attestation: All medical record entries made by the Scribe were at my direction and personally dictated by me. I have reviewed the chart and agree that the record accurately reflects my personal performance of the history, physical exam, medical decision making, and the department course for this patient. I have also personally directed, reviewed, and agree with the discharge instructions and disposition. Disposition/Present on Arrival - Present on Arrival Any Indicators Present on Arrival: No History of DVT/PE: No History of Uncontrolled Diabetes: No Urinary Catheter: No History Surgical Site Infection Following: None - Disposition Have Diagnosis and Disposition been Completed?: No Diagnosis: Alcohol intoxication Disposition Time: 07:00 Condition: STABLE Referrals: PCP,NO [Primary Care Provider] - Follow up with primary
[2017-10-11 02:27] LABS: ALB/GLOB RATIO 1.3 (1.1-1.8); ALKALINE PHOSPHATASE 103 U/L (38-126); ALT/SGPT 83 U/L (7-56); AST/SGOT 81 U/L (17-59); BILIRUBIN,TOTAL 0.4 mg/dL (0.2-1.3); BLOOD UREA NITROGEN 11 mg/dL (7-21); CALCIUM 8.5 mg/dL (8.4-10.5); CARBON DIOXIDE 23 mmol/L (21-33); CHLORIDE 114 mmol/L (98-107); GFR AFRICAN-AMERICAN > 60; GLUCOSE,RANDOM 109 mg/dL (70-110); SODIUM 152 mmol/L (132-148); TOTAL PROTEIN 7.7 g/dL (5.8-8.3)
[2017-10-11 02:41] LABS: HEMATOCRIT 43.3 % (42.0-52.0); MEAN CELL VOLUME 100.9 fl (80.0-105.0); MEAN CORPUSCULAR HEMOGLOBIN 34.3 pg (25.0-35.0); MEAN CORPUSCULAR HGB CONC 33.9 g/dl (31.0-37.0); MEAN PLATELET VOLUME 10.5 fl (7.0-11.0); RED CELL DISTRIBUTION WIDTH 13.4 % (11.5-14.5); WHITE BLOOD COUNT 7.7 10^3/ul (4.5-11.0)
[2017-10-11 04:34] VITALS: RESP 16
--- NOTE | 2017-10-11 07:45 | ED PDOC ---
Physical Exam Vital Signs Temp Pulse Resp BP Pulse Ox 10/11/17 07:00 81 16 102/78 93 L 10/11/17 06:00 89 16 111/73 100 10/11/17 04:00 67 16 100/63 96 10/11/17 02:00 74 16 111/65 95 10/11/17 00:00 98.2 F 79 18 147/93 H 94 L Finger Stick Blood Glucose: 98 Medical Decision Making ED Course and Treatment: 10/11/17 07:05 Case endorsed to me by Dr. Jon. Patient pending sobriety and final disposition. 10/11/17 08:48 Patient is awake, alert, and ambulatory. Patient is asking to leave and awaits discharge. pt d/c to mother. upon d/c, pt notified rn he feels lightheaded. suggested pt wait in er for full eval. and reassess. pt declined and left with mother. 10/11/17 12:25 - Lab Interpretations Lab Results: 10/11/17 01:43 10/11/17 01:43 Lab Results 10/11/17 01:43: WBC 7.7 D, RBC 4.29, Hgb 14.7, Hct 43.3, MCV 100.9, MCH 34.3, MCHC 33.9, RDW 13.4, Plt Count 185, MPV 10.5 10/11/17 01:43: Alcohol, Quantitative 365 H* 10/11/17 01:43: Sodium 152 H, Potassium 4.0, Chloride 114 H, Carbon Dioxide 23, Anion Gap 19, BUN 11, Creatinine 0.8, Est GFR ( Amer) > 60, Est GFR (Non- Af Amer) > 60, Random Glucose 109, Calcium 8.5, Total Bilirubin 0.4, AST 81 H, ALT 83 H, Alkaline Phosphatase 103, Total Protein 7.7, Albumin 4.4, Globulin 3.3 , Albumin/Globulin Ratio 1.3 10/11/17 01:09: POC Glucose (mg/dL) 98 - Medication Orders Current Medication Orders: Discontinued Medications Chlordiazepoxide (Librium) 50 mg PO STAT STA Stop: 10/11/17 06:26 Last Admin: 10/11/17 06:55 Dose: 50 mg Haloperidol Lactate (Haldol) 5 mg IM STAT STA PRN Reason: Protocol Stop: 10/11/17 00:13 Last Admin: 10/11/17 00:14 Dose: 5 mg IM Administration Charges Document 10/11/17 00:14 YOVANY (Rec: 10/11/17 00:14 YOVANY [id number]) Injection Site MAR Injection Site Left Deltoid Charges for Administration # of IM Administrations 1 Lorazepam (Ativan) 2 mg IM ONCE ONE PRN Reason: Protocol Stop: 10/11/17 00:11 Last Admin: 10/11/17 00:14 Dose: 2 mg IM Administration Charges Document 10/11/17 00:14 YOVANY (Rec: 10/11/17 00:14 YOVANY [id number]) Injection Site MAR Injection Site Left Deltoid Charges for Administration # of IM Administrations 1 - Scribe Statement The provider has reviewed the documentation as recorded by the Stanley Ludwig Provider Scribe Attestation: All medical record entries made by the Scribmigdalia were at my direction and personally dictated by me. I have reviewed the chart and agree that the record accurately reflects my personal performance of the history, physical exam, medical decision making, and the department course for this patient. I have also personally directed, reviewed, and agree with the discharge instructions and disposition. Disposition/Present on Arrival - Present on Arrival Any Indicators Present on Arrival: No History of DVT/PE: No History of Uncontrolled Diabetes: No Urinary Catheter: No History of Decub. Ulcer: No History Surgical Site Infection Following: None - Disposition Have Diagnosis and Disposition been Completed?: Yes Diagnosis: Alcohol intoxication Disposition: HOME/ ROUTINE Disposition Time: 11:00 Condition: STABLE Discharge Instructions (ExitCare): Alcohol Intoxication (GEN) Additional Instructions: please follow up with your doctor. return to er with worsening symptoms or concerns. Referrals: Alcoholics Anonymous [Outside] - Follow up with primary PCP,NO [Primary Care Provider] - Follow up with primary Forms: [employer] (Estonian)
[2017-10-11 09:15] VITALS: BP 110/76; PULSE 76; TEMP 98.1; O2SAT 98
== END 2017-10-11 09:16 | disposition home or self-care (01) ==
LOC: ED 23:59
DX: F10.129 Alcohol abuse with intoxication, unspecified (principal); Y90.8 Blood alcohol level of 240 mg/100 ml or more
CPT/HCPCS: 80053; 80320; 82948; 85027; 96372; 99285; J1630; J2060

== ENCOUNTER 2017-10-11 14:41 | Inpatient (IN) | payer MEDICAID ==
[2017-10-11] MEDS ORDERED: Sodium Chloride 0.9% 1,000 ML IV STA (14:54)
--- NOTE | 2017-10-11 15:23 | RAD ---
HISTORY: cp COMPARISON: Chest x-ray performed 10/09/17 TECHNIQUE: Chest, one view. FINDINGS: LUNGS: No focal consolidation. Please note that chest x-ray has limited sensitivity for the detection of pulmonary masses. PLEURA: No significant pleural effusion identified. No definite pneumothorax . CARDIOVASCULAR: The cardiomediastinal silhouette appears within normal limits of size. OSSEOUS STRUCTURES: No acute osseous abnormality identified. VISUALIZED UPPER ABDOMEN: Unremarkable. OTHER FINDINGS: None. IMPRESSION: No focal consolidation, significant pleural effusion, or definite pneumothorax identified.
[2017-10-11 15:24] LABS: BASO # 0.07 K/mm3 (0.0-2.0); BASO % 0.6 % (0.0-3.0); EOS # 0.1 (0.0-0.7); EOS % 0.6 % (1.5-5.0); GRAN # 7.06 (1.4-6.5); GRAN % 64.8 % (50.0-68.0); HEMATOCRIT 47.2 % (42.0-52.0); LYMPH # 3.2 (1.2-3.4); LYMPH % 28.9 % (22.0-35.0); MEAN CELL VOLUME 100.2 fl (80.0-105.0); MEAN CORPUSCULAR HEMOGLOBIN 34.4 pg (25.0-35.0); MEAN CORPUSCULAR HGB CONC 34.3 g/dl (31.0-37.0); MEAN PLATELET VOLUME 10.5 fl (7.0-11.0); MONO # 0.6 (0.1-0.6); MONO % 5.1 % (1.0-6.0); RED CELL DISTRIBUTION WIDTH 13.3 % (11.5-14.5); WHITE BLOOD COUNT 10.9 10^3/ul (4.5-11.0)
[2017-10-11 15:34] LABS: INR 0.95 (0.93-1.08); PARTIAL THROMBOPLASTIN TIME 27.8 Seconds (25.1-36.5)
--- NOTE | 2017-10-11 15:48 | ED PDOC ---
Arrival/HPI <Luis Enrique Jon - Last Filed: 10/11/17 22:28> - General Historian: Patient - History of Present Illness Symptom Onset: Sudden Symptom Course: Unchanged Activities at Onset: Rest Context: Home <Sixto Mariscal - Last Filed: 10/14/17 07:16> - General Chief Complaint: Palpitations Time Seen by Provider: 10/11/17 14:42 - History of Present Illness Narrative History of Present Illness (Text): 10/11/17 15:49 A 27 year old male, whose past medical history includes alcohol abuse, substance abuse, presents to the emergency department complaining of chest pain and palpitations. Patient presented to the emergency department yesterday for alcohol intoxication and was discharged earlier today. Patient denies any fever , nausea, vomiting or any other complaints at this time. mother later calls and states pt has been voicing SI, and hallucinations. mother states "he uses every drug out there". pt endorses etoh consumption upon arrival here. 10/11/17 16:27 (Sixto Mariscal) Past Medical History - Provider Review Nursing Documentation Reviewed: Yes - Past History Past History: No Previous (alcohol dependent) - Infectious Disease Hx of Infectious Diseases: None - Tetanus Immunization Tetanus Immunization: Unknown - Past Medical History Past Medical History: No Previous - Cardiac Hx Cardiac Disorders: No - Pulmonary Hx Respiratory Disorders: No - Neurological Hx Neurological Disorder: No - HEENT Hx HEENT Disorder: No - Renal Hx Renal Disorder: No - Endocrine/Metabolic Hx Endocrine Disorders: No - Hematological/Oncological Hx Blood Disorders: No - Integumentary Hx Dermatological Disorder: No - Musculoskeletal/Rheumatological Hx Musculoskeletal Disorders: No - Gastrointestinal Hx Gastrointestinal Disorders: Yes (GASTRITIS,APPENDICITIS) - Genitourinary/Gynecological Hx Genitourinary Disorders: No - Psychiatric Hx Psychophysiologic Disorder: Yes Hx Substance Use: Yes Other/Comment: alcohol abuse - Past Surgical History Past Surgical History: No Previous - Surgical History Hx Appendectomy: Yes - Anesthesia Hx Anesthesia: Yes Hx Anesthesia Reactions: No Hx Malignant Hyperthermia: No - Suicidal Assessment Feels Threatened In Home Enviroment: No <Sixto Mariscal - Last Filed: 10/14/17 07:16> Family/Social History - Physician Review Nursing Documentation Reviewed: Yes Family/Social History: No Known Family HX Smoking Status: Heavy Smoker > 10 Cigarettes Daily Hx Alcohol Use: Yes Frequency of alcohol use: Daily Hx Substance Use: Yes Hx Substance Use Treatment: No <Sixto Mariscal - Last Filed: 10/14/17 07:16> Allergies/Home Meds <Luis Enrique Jon - Last Filed: 10/11/17 22:28> <Sixto Mariscal - Last Filed: 10/14/17 07:16> Allergies/Adverse Reactions: Allergies No Known Allergies Allergy (Verified 10/11/17 14:49) Review of Systems - Physician Review All systems were reviewed & negative as marked: Yes - Review of Systems Constitutional: absent: Fevers Cardiovascular: Chest Pain, Palpitations Gastrointestinal: absent: Nausea, Vomiting <Sixto Mariscal - Last Filed: 10/14/17 07:16> Physical Exam Vital Signs Reviewed: Yes Temperature: Afebrile Blood Pressure: Hypertensive Pulse: Tachycardic Respiratory Rate: Normal Appearance: Positive for: Well-Appearing, Non-Toxic, Comfortable Pain Distress: None Mental Status: Positive for: Alert and Oriented X 3 Finger Stick Blood Glucose: 83 - Systems Exam Head: Present: Atraumatic, Normocephalic Pupils: Present: PERRL Extroacular Muscles: Present: EOMI Conjunctiva: Present: Normal Mouth: Present: Moist Mucous Membranes Neck: Present: Normal Range of Motion Respiratory/Chest: Present: Clear to Auscultation, Good Air Exchange. No: Respiratory Distress, Accessory Muscle Use Cardiovascular: Present: Tachycardic. No: Murmurs Abdomen: Present: Normal Bowel Sounds. No: Tenderness, Distention, Peritoneal Signs Back: Present: Normal Inspection Upper Extremity: Present: Normal Inspection. No: Cyanosis, Edema Lower Extremity: Present: Normal Inspection. No: Edema Neurological: Present: GCS=15, CN II-XII Intact, Speech Normal Skin: Present: Warm, Dry, Normal Color. No: Rashes Psychiatric: Present: Alert, Oriented x 3, Normal Concentration, Anxious <Sixto Mariscal - Last Filed: 10/14/17 07:16> Vital Signs Temp Pulse Resp BP Pulse Ox 10/11/17 22:00 98.3 F 87 20 129/83 97 10/11/17 21:57 90 15 139/86 97 10/11/17 21:42 98 F 71 18 106/61 10/11/17 20:00 83 16 115/75 96 10/11/17 16:42 98 F 71 20 106/61 98 10/11/17 14:59 98.8 F 96 H 19 153/81 H 95 10/11/17 14:44 99.1 F 121 H 21 132/98 H 98 Medical Decision Making <Dontrell,Luis Enrique - Last Filed: 10/11/17 22:28> - Lab Interpretations I have reviewed the lab results: Yes - EKG Interpretation Interpreted by ED Physician: Yes Type: 12 lead EKG <Sixto Mariscal - Last Filed: 10/14/17 07:16> ED Course and Treatment: 10/11/17 20:41 Case was endorsed from @19:00.Pt. with hx. of alcohol abuse,possible depression/suicidal thoughts.Pt. now exhibiting signs of alcohol withdrawal requiring ongoing treatment.Case d/w medical staff specialist and house physician .Accepts to hospitalist service/telemetry. (Luis Enrique Jon) 10/11/17 15:45 Impression: A 27 year old male with chest pain and palpitations. pt anxious appearing, no tremors. suspect substance abuse. mother later calls and states pt with SI. mother reports he has been with multiple friends, providing drugs. reports "he has been hanging out with 17 year old runaway". 17 yo cannot be located in er, other visits escorted out by security. Plan: -- EKG -- chest xray -- labs -- Urinalysis -- Ativan, IV fluids -- Reassess and disposition Prior Visits: Notes and results from previous visits were reviewed. Patient last reported to the emergency department yesterday for evaluation of alcohol intoxication. Patient was discharged from the emergency department earlier today. Progress Notes: EKG: Ordered, reviewed, and independently interpreted the EKG. Rate : 96 BPM Rhythm : NSR Interpretation : Normal intervals, normal axis 10/11/17 15:26 Chest xray: Creator : Veronika Cosby MD FINDINGS: LUNGS: No focal consolidation. Please note that chest x-ray has limited sensitivity for the detection of pulmonary masses. PLEURA: No significant pleural effusion identified. No definite pneumothorax . CARDIOVASCULAR: The cardiomediastinal silhouette appears within normal limits of size. OSSEOUS STRUCTURES: No acute osseous abnormality identified. VISUALIZED UPPER ABDOMEN: Unremarkable. IMPRESSION: No focal consolidation, significant pleural effusion, or definite pneumothorax identified. 10/11/17 16:28 pt reassesed: pending sobriety for pes eval. 10/11/17 18:31 signed out to night team, pending pes eval, reassessment and final dispo. 10/11/17 18:49 discussed with mother [phone] pt has voiced "jumping off [facility] ", with si (Sixto Mariscal) - Lab Interpretations Microbiology Results: Microbiology Results 10/11/17 21:50 Blood Blood Culture - Preliminary NO GROWTH AFTER 48 HOURS 10/11/17 21:30 Blood Blood Culture - Preliminary NO GROWTH AFTER 48 HOURS Lab Results: 10/12/17 04:10 10/12/17 04:10 Lab Results 10/12/17 14:56: pCO2 25 L, pO2 163.0 H, HCO3 21.9, ABG pH 7.55 H, ABG Total CO2 22.7, ABG O2 Saturation 99.0 H, ABG O2 Content 18.1, ABG Base Excess 0.9, ABG Hemoglobin 13.2, ABG Carboxyhemoglobin 2.2 H, POC ABG HHb (Measured) 1.0, ABG Methemoglobin 0.8, ABG O2 Capacity 18.3, Hgb O2 Saturation 96.1, FiO2 21.0 10/12/17 08:45: Lactate Dehydrogenase 599, Total Creatine Kinase 527 H, CK-MB ( CK-2) 1.4, CK-MB (CK-2) % Cancelled, Troponin I < 0.01 10/12/17 04:10: Sodium 141, Potassium 3.5 L, Chloride 106, Carbon Dioxide 23, Anion Gap 15, BUN 12, Creatinine 0.9, Est GFR ( Amer) > 60, Est GFR (Non- Af Amer) > 60, Random Glucose 98, Calcium 8.8, Phosphorus 3.8, Magnesium 1.6 L, Total Bilirubin 0.7, AST 77 H D, ALT 74 H, Alkaline Phosphatase 76, Lactate Dehydrogenase 564, Total Creatine Kinase 595 H, CK-MB (CK-2) 1.7, CK-MB (CK-2) % Cancelled, Troponin I < 0.01, Total Protein 6.7, Albumin 3.8, Globulin 2.9, Albumin/Globulin Ratio 1.3 10/12/17 04:10: WBC 7.9 D, RBC 3.95, Hgb 13.3 L D, Hct 39.8 L, MCV 100.8, MCH 33.7, MCHC 33.4, RDW 13.2, Plt Count 181, MPV 10.5, Gran % 60.8, Lymph % (Auto) 31.6, [place] % (Auto) 5.8, Eos % (Auto) 1.4 L, Baso % (Auto) 0.4, Gran # 4.79, Lymph # 2.5, [place] # 0.5, Eos # 0.1, Baso # 0.03 10/12/17 04:10: Hemoglobin A1c 5.8 10/12/17 04:10: Triglycerides 257 H, Cholesterol 175, LDL Cholesterol Direct 91 , HDL Cholesterol 57 10/11/17 22:00: HIV-1 Ab Rapid Screen Non reactive 10/11/17 22:00: Hepatitis A IgM Ab Negative, Hep Bs Antigen Negative, Hep B Core IgM Ab Negative, Hepatitis C Antibody Negative 10/11/17 21:50: Lactate Dehydrogenase 643, Total Creatine Kinase 706 H, CK-MB ( CK-2) 2.6, CK-MB (CK-2) % Cancelled, Troponin I < 0.01 10/11/17 21:15: Urine Color Yellow, Urine Appearance Clear, Urine pH 6.0, Ur Specific [place] 1.020, Urine Protein Negative, Urine Glucose (UA) Negative, Urine Ketones Negative, Urine Blood Negative, Urine Nitrate Negative, Urine Bilirubin Negative, Urine Urobilinogen 0.2, Ur Leukocyte Esterase Negative 10/11/17 21:08: Urine Opiates Screen Negative, Urine Methadone Screen Negative, Ur Barbiturates Screen Negative, Ur Phencyclidine Scrn Negative, Ur Amphetamines Screen Negative, U Benzodiazepines Scrn Positive H, U Oth Cocaine Metabols Negative, U Cannabinoids Screen Positive H 10/11/17 14:53: POC Glucose (mg/dL) 83 10/11/17 14:50: Alcohol, Quantitative 298 H 10/11/17 14:50: Salicylates < 1 L, Acetaminophen < 10.0 L 10/11/17 14:50: Sodium 148, Potassium 4.3, Chloride 105, Carbon Dioxide 28, Anion Gap 19, BUN 13, Creatinine 0.9, Est GFR ( Amer) > 60, Est GFR (Non- Af Amer) > 60, Random Glucose 99, Calcium 9.8, Magnesium 2.0, Total Bilirubin 0.6, AST 112 H D, ALT 100 H, Alkaline Phosphatase 105, Lactate Dehydrogenase 869 H, Total Creatine Kinase 858 H, CK-MB (CK-2) 4.3 H, CK-MB (CK-2) % Cancelled , Troponin I < 0.01, Total Protein 9.1 H, Albumin 5.1 H, Globulin 4.0, Albumin/ Globulin Ratio 1.3, Lipase 88 10/11/17 14:50: PT 10.3, INR 0.95, APTT 27.8 10/11/17 14:50: WBC 10.9 D, RBC 4.71, Hgb 16.2, Hct 47.2, MCV 100.2, MCH 34.4, MCHC 34.3, RDW 13.3, Plt Count 218, MPV 10.5, Gran % 64.8, Lymph % (Auto) 28.9, [place] % (Auto) 5.1, Eos % (Auto) 0.6 L, Baso % (Auto) 0.6, Gran # 7.06 H, Lymph # 3.2, [place] # 0.6, Eos # 0.1, Baso # 0.07 - RAD Interpretation Radiology Orders: 10/11/17 14:53 CHEST PORTABLE [RAD] Stat - Medication Orders Current Medication Orders: Discontinued Medications Chlordiazepoxide (Librium) 50 mg PO STAT STA Stop: 10/11/17 20:51 Last Admin: 10/11/17 21:00 Dose: 50 mg Famotidine (Pepcid) 20 mg IVP DAILY [facility] Last Admin: 10/13/17 10:46 Dose: 20 mg IVP Administration Document 10/13/17 10:46 KMS (Rec: 10/13/17 10:46 KMS [id number]) Charges for Administration # of IVP Administrations 1 Folic Acid (Folic Acid) 1 mg PO DAILY [facility] Last Admin: 10/13/17 10:46 Dose: 1 mg Heparin Sodium (Porcine) (Heparin) 5,000 units SC Q8 [facility] PRN Reason: Protocol Last Admin: 10/13/17 07:15 Dose: 5,000 units Subcutaneous Administrations Document 10/13/17 07:15 SRE (Rec: 10/13/17 07:16 SRE [id number]) Injection Site MAR Injection Site Left Abdomen Charges for Administration # of Subcutaneous Administrations 1 Sodium Chloride (Sodium Chloride 0.9%) 1,000 mls @ 999 mls/hr IV .Q1H1M STA Stop: 10/11/17 15:54 Last Admin: 10/11/17 15:09 Dose: 999 mls/hr eMAR Start Stop Document 10/11/17 15:09 LM (Rec: 10/11/17 15:09 [id number] Intravenous Solution Start Date 10/11/17 Start Time 15:09 End Date 10/11/17 End time 16:10 Total Infusion Time 61 Multivitamins/Vitamin C 10 ml/Thiamine HCl 100 mg/ Folic Acid 1 mg/ Sodium Chloride 1,011.2 mls @ 125 mls/hr IV .Q8H6M ONE Stop: 10/12/17 04:51 Last Admin: 10/11/17 21:35 Dose: 125 mls/hr eMAR Start Stop Document 10/11/17 21:35 JOL (Rec: 10/11/17 21:46 JOL [id number]) Intravenous Solution Start Date 10/11/17 Start Time 21:35 Sodium Chloride (Sodium Chloride 0.45%) 1,000 mls @ 150 mls/hr IV .Q6H40M ONE Stop: 10/12/17 04:00 Last Admin: 10/11/17 21:46 Dose: Magnesium Sulfate/Dextrose (Magnesium Sulfate 1 Gm/100 Ml D5w) 1 gm in 100 mls @ 100 mls/hr IVPB ONCE ONE Stop: 10/12/17 06:05 Last Admin: 10/12/17 05:59 Dose: 100 mls/hr eMAR Start Stop Document 10/12/17 05:59 KTR (Rec: 10/12/17 05:59 KTR [id number]) Intravenous Solution Start Date 10/12/17 Start Time 05:59 Sodium Chloride (Sodium Chloride 0.9%) 1,000 mls @ 125 mls/hr IV .Q8H [facility] Last Admin: 10/13/17 10:26 Dose: Lorazepam (Ativan) 1 mg IVP ONCE ONE PRN Reason: Protocol Stop: 10/11/17 14:57 Last Admin: 10/11/17 15:11 Dose: 1 mg IVP Administration Document 10/11/17 15:11 LM (Rec: 10/11/17 15:11 [facility] [id number]) Charges for Administration # of IVP Administrations 1 Lorazepam (Ativan) 1 mg IVP ONCE ONE Stop: 10/11/17 20:29 Last Admin: 10/11/17 20:43 Dose: 1 mg IVP Administration Document 10/11/17 20:43 JOL (Rec: 10/11/17 20:43 JOL [id number]) Charges for Administration # of IVP Administrations 1 Lorazepam (Ativan) 1 mg IVP Q4 PRN; Protocol PRN Reason: Symptoms of alcohol withdrawl Lorazepam (Ativan) 1 mg IVP Q1 PRN; Protocol PRN Reason: Symptoms of alcohol withdrawl Last Admin: 10/13/17 07:16 Dose: 1 mg IVP Administration Document 10/13/17 07:16 SRE (Rec: 10/13/17 07:16 SRE [id number]) Charges for Administration # of IVP Administrations 1 Behavioural Document 10/13/17 07:16 SRE (Rec: 10/13/17 07:16 SRE [id number]) Nonmedicinal Nonmedicinal Interventions Redirect Therapeutic Communication Behavior Behavior for Medication: Anxiety Re-Assess: Reassess Psych Meds Document 10/13/17 07:46 SRE (Rec: 10/13/17 09:26 [place] [facility] [id number] Reassess Psych Med Effective Lorazepam (Ativan) 2 mg IVP Q6 [facility] PRN Reason: Protocol Last Admin: 10/12/17 12:30 Dose: 2 mg IVP Administration Document 10/12/17 12:30 RDS (Rec: 10/12/17 12:30 RDS [id number]) Charges for Administration # of IVP Administrations 1 Behavioural Document 10/12/17 12:30 RDS (Rec: 10/12/17 12:30 RDS [id number]) Maintenance Maintenance Dose Yes Nonmedicinal Nonmedicinal Interventions Therapeutic Communication Re-Assess: Reassess Psych Meds Document 10/12/17 13:00 RDS (Rec: 10/12/17 13:14 RDS [facility] [id number] Reassess Psych Med Effective Lorazepam (Ativan) 1 mg IVP Q6 [facility] PRN Reason: Protocol Last Admin: 10/13/17 06:04 Dose: 1 mg IVP Administration Document 10/13/17 06:04 SRE (Rec: 10/13/17 06:04 SRE [id number]) Charges for Administration # of IVP Administrations 1 Behavioural Document 10/13/17 06:04 SRE (Rec: 10/13/17 06:04 SRE [id number]) Maintenance Maintenance Dose No Nonmedicinal Nonmedicinal Interventions See nurse's notes Behavior Behavior for Medication: Anxiety Re-Assess: Reassess Psych Meds Document 10/13/17 06:34 SRE (Rec: 10/13/17 09:25 SRE [id number]) Reassess Psych Med Effective Lorazepam (Ativan) 1 mg IVP Q8 [facility] PRN Reason: Protocol Multivitamins (Thera Tab) 1 tab PO 0800 [facility] Last Admin: 10/13/17 08:04 Dose: 1 tab Nicotine (Nicoderm Cq) 1 patch TD DAILY PRN PRN Reason: URGE TO SMOKE Last Admin: 10/12/17 21:23 Dose: 1 patch MAR Transdermal Patch Site Document 10/12/17 21:23 SRE (Rec: 10/12/17 21:23 SRE [id number]) Transdermal Patch Site Transdermal Patch Site Right Outer Upper Arm Ondansetron HCl (Zofran Inj) 4 mg IVP Q4H PRN PRN Reason: Nausea/Vomiting Potassium Chloride (K-Dur 20 Meq Er Tab) 40 meq PO STAT STA Stop: 10/12/17 05:07 Last Admin: 10/12/17 05:52 Dose: 40 meq Thiamine HCl (Vitamin B1 Tab) 100 mg PO DAILY [facility] Last Admin: 10/13/17 10:46 Dose: 100 mg <Luis Enrique Jon - Last Filed: 10/11/17 22:28> - Scribe Statement The provider has reviewed the documentation as recorded by the Scribe <Sixto Mariscal - Last Filed: 10/14/17 07:16> - Scribe Statement Mallory Garcia All medical record entries made by the Scribe were at my direction and personally dictated by me. I have reviewed the chart and agree that the record accurately reflects my personal performance of the history, physical exam, medical decision making, and the department course for this patient. I have also personally directed, reviewed, and agree with the discharge instructions and disposition. (Sixto Mariscal) Disposition/Present on Arrival - Present on Arrival Any Indicators Present on Arrival: No History of DVT/PE: No History of Uncontrolled Diabetes: No Urinary Catheter: No History of Decub. Ulcer: No History Surgical Site Infection Following: None - Disposition Have Diagnosis and Disposition been Completed?: Yes Disposition Time: 20:41 <Luis Enrique Jon - Last Filed: 10/11/17 22:28> - Present on Arrival History of DVT/PE: No History of Uncontrolled Diabetes: No Urinary Catheter: No History of Decub. Ulcer: No History Surgical Site Infection Following: None <Sixto Mariscal - Last Filed: 10/14/17 07:16> - Disposition Diagnosis: Alcohol withdrawal, Depressive disorder Disposition: HOSPITALIZED Condition: STABLE
[2017-10-11 15:53] LABS: TROPONIN I < 0.01 ng/mL
[2017-10-11 15:59] LABS: BLOOD UREA NITROGEN 13 mg/dL (7-21); GFR AFRICAN-AMERICAN > 60; GLUCOSE,RANDOM 99 mg/dL (70-110)
[2017-10-11 16:00] LABS: ALB/GLOB RATIO 1.3 (1.1-1.8); BILIRUBIN,TOTAL 0.6 mg/dL (0.2-1.3); CALCIUM 9.8 mg/dL (8.4-10.5); CARBON DIOXIDE 28 mmol/L (21-33); CHLORIDE 105 mmol/L (98-107); POTASSIUM 4.3 mmol/L (3.6-5.0); SODIUM 148 mmol/L (132-148); TOTAL PROTEIN 9.1 g/dL (5.8-8.3)
[2017-10-11 16:01] LABS: ALKALINE PHOSPHATASE 105 U/L (38-126); ALT/SGPT 100 U/L (7-56); AST/SGOT 112 U/L (17-59); LIPASE 88 U/L (23-300)
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
[2017-10-11] MEDS ORDERED: Multivitamin (MVI) 10 ML, Thiamine 100 MG, Folic Acid 1 MG in Sodium Chloride 0.9% 1,00... IV ONE (20:46)
[2017-10-11] MEDS ORDERED: Sodium Chloride 0.45% 1,000 ML IV ONE (21:21)
[2017-10-11 21:35] LABS: URINE BILIRUBIN NEGATIVE (NEGATIVE); URINE BLOOD NEGATIVE (NEGATIVE); URINE GLUCOSE (UA) NEGATIVE (NEGATIVE); URINE KETONE NEGATIVE (NEGATIVE); URINE LEUKOCYTE ESTERASE NEGATIVE Leu/uL (NEGATIVE); URINE PROTEIN NEGATIVE mg/dL (<30 mg/dL); URINE UROBILINOGEN 0.2 E.U./dL (<1 E.U./dL)
[2017-10-11 21:38] LABS: URINE APPEARANCE CLEAR (CLEAR); URINE COLOR YELLOW (YELLOW)
[2017-10-11 21:47] VITALS: BMI 25.6
[2017-10-11 22:42] LABS: TROPONIN I < 0.01 ng/mL
[2017-10-12 04:37] LABS: ALB/GLOB RATIO 1.3 (1.1-1.8); ALKALINE PHOSPHATASE 76 U/L (38-126); ALT/SGPT 74 U/L (7-56); AST/SGOT 77 U/L (17-59); BILIRUBIN,TOTAL 0.7 mg/dL (0.2-1.3); BLOOD UREA NITROGEN 12 mg/dL (7-21); CALCIUM 8.8 mg/dL (8.4-10.5); CARBON DIOXIDE 23 mmol/L (21-33); CHLORIDE 106 mmol/L (98-107); GFR AFRICAN-AMERICAN > 60; GLUCOSE,RANDOM 98 mg/dL (70-110); MAGNESIUM 1.6 mg/dL (1.7-2.2); PHOSPHOROUS 3.8 mg/dL (2.5-4.5); POTASSIUM 3.5 mmol/L (3.6-5.0); SODIUM 141 mmol/L (132-148); TOTAL PROTEIN 6.7 g/dL (5.8-8.3)
[2017-10-12 04:45] LABS: TROPONIN I < 0.01 ng/mL
[2017-10-12 04:55] LABS: BASO # 0.03 K/mm3 (0.0-2.0); BASO % 0.4 % (0.0-3.0); EOS # 0.1 (0.0-0.7); EOS % 1.4 % (1.5-5.0); GRAN # 4.79 (1.4-6.5); GRAN % 60.8 % (50.0-68.0); HEMATOCRIT 39.8 % (42.0-52.0); LYMPH # 2.5 (1.2-3.4); LYMPH % 31.6 % (22.0-35.0); MEAN CELL VOLUME 100.8 fl (80.0-105.0); MEAN CORPUSCULAR HEMOGLOBIN 33.7 pg (25.0-35.0); MEAN CORPUSCULAR HGB CONC 33.4 g/dl (31.0-37.0); MEAN PLATELET VOLUME 10.5 fl (7.0-11.0); MONO # 0.5 (0.1-0.6); MONO % 5.8 % (1.0-6.0); RED CELL DISTRIBUTION WIDTH 13.2 % (11.5-14.5); WHITE BLOOD COUNT 7.9 10^3/ul (4.5-11.0)
[2017-10-12 05:03] LABS: CHOLESTEROL 175 mg/dL (130-200)
[2017-10-12] MEDS ORDERED: Magnesium Sulfate 1 gm in D5W 1 GM/100 ML BAG IVPB ONE (05:06)
[2017-10-12] MEDS ORDERED: Potassium Chloride 20 mEq ER Tab PO STA (05:06)
[2017-10-12] MEDS: Sodium Chloride 0.9% 1,000 ML IV SCH ×4 (08:33→23:55)
[2017-10-12] MEDS: Multivitamin Therapeutic Tab PO SCH (09:33)
[2017-10-12 09:45] LABS: TROPONIN I < 0.01 ng/mL
[2017-10-12 15:00] LABS: ARTERIAL BLOOD GAS HCO3 21.9 mmol/L (21-28); ARTERIAL BLOOD GAS O2 CAPACITY 18.3 mL/dl (16-24); ARTERIAL BLOOD GAS O2 CONTENT 18.1 ML/dl (15-23); ARTERIAL BLOOD GAS PH 7.55 (7.35-7.45); ARTERIAL BLOOD HGB O2 SAT 96.1 % (95.0-98.0); CARBOXYHEMOGLOBIN 2.2 % (0.5-1.5); METHEMOGLOBIN 0.8 % (0.0-3.0)
--- NOTE | 2017-10-12 15:01 | CP.PCM.PN ---
<Dusty Banegas - Last Filed: 10/12/17 15:47> Subjective - Date & Time of Evaluation Date of Evaluation: 10/12/17 Time of Evaluation: 08:59 - Subjective Subjective: Patient seen and examined at bedside. Per nursing no acute events occurred. The patient denies any chest pain at this time. The patient denies any fevers, chills, lightheadedness, dizziness, syncopal episodes, nausea, or any other complaints. Objective - Vital Signs/Intake and Output Vital Signs (last 24 hours): Temp Pulse Resp BP Pulse Ox 97.7 F 68 20 119/81 97 10/12/17 06:00 10/12/17 10:00 10/12/17 06:00 10/12/17 06:00 10/12/17 06:00 Intake and Output: 10/12/17 10/12/17 06:59 18:59 Intake Total 957 2475 Output Total 3 950 Balance 954 1525 - Medications Medications: Current Medications Famotidine (Pepcid) 20 mg IVP DAILY [facility] Last Admin: 10/12/17 09:33 Dose: 20 mg Folic Acid (Folic Acid) 1 mg PO DAILY [facility] Last Admin: 10/12/17 09:33 Dose: 1 mg Heparin Sodium (Porcine) (Heparin) 5,000 units SC Q8 ROB PRN Reason: Protocol Last Admin: 10/12/17 14:06 Dose: 5,000 units Sodium Chloride (Sodium Chloride 0.9%) 1,000 mls @ 125 mls/hr IV .Q8H [facility] Last Admin: 10/12/17 08:33 Dose: 125 mls/hr Lorazepam (Ativan) 1 mg IVP Q1 PRN; Protocol PRN Reason: Symptoms of alcohol withdrawl Last Admin: 10/12/17 14:06 Dose: 1 mg Lorazepam (Ativan) 1 mg IVP Q6 ROB PRN Reason: Protocol Multivitamins (Thera Tab) 1 tab PO 0800 [facility] Last Admin: 10/12/17 09:33 Dose: 1 tab Nicotine (Nicoderm Cq) 1 patch TD DAILY PRN PRN Reason: URGE TO SMOKE Ondansetron HCl (Zofran Inj) 4 mg IVP Q4H PRN PRN Reason: Nausea/Vomiting Thiamine HCl (Vitamin B1 Tab) 100 mg PO DAILY [facility] Last Admin: 10/12/17 09:42 Dose: 100 mg - Labs Labs: 10/12/17 04:10 10/12/17 04:10 PT 10.3 SECONDS (9.4-12.5) 10/11/17 14:50 INR 0.95 (0.93-1.08) 10/11/17 14:50 APTT 27.8 Seconds (25.1-36.5) 10/11/17 14:50 - Head Exam Head Exam: ATRAUMATIC, NORMAL INSPECTION, NORMOCEPHALIC - Eye Exam Eye Exam: EOMI, Normal appearance, PERRL Pupil Exam: NORMAL ACCOMODATION, PERRL - ENT Exam ENT Exam: Mucous Membranes Moist, Normal Oropharynx - Neck Exam Neck Exam: Normal Inspection. absent: Meningismus - Respiratory Exam Respiratory Exam: Clear to Ausculation Bilateral, NORMAL BREATHING PATTERN. absent: Rales, Rhonchi - Cardiovascular Exam Cardiovascular Exam: REGULAR RHYTHM, +S1, +S2. absent: Rubs - GI/Abdominal Exam GI & Abdominal Exam: Soft, Normal Bowel Sounds. absent: Hyperactive Bowel Sounds, Organomegaly - Extremities Exam Extremities Exam: absent: Pedal Edema - Back Exam Back Exam: NORMAL INSPECTION. absent: CVA tenderness (L), CVA tenderness (R), paraspinal tenderness - Neurological Exam Neurological Exam: Alert, Awake, Normal Gait, Oriented x3 - Psychiatric Exam Psychiatric exam: Normal Affect, Normal Mood - Skin Skin Exam: Dry, Intact, Normal Color Assessment and Plan - Assessment and Plan (Free Text) Assessment: Patient is a 27 year old male with a past medical history of alcohol abuse and substance abuse who was admitted for evaluation and treatment for evaluation and treatment of chest pain and palpitations which began one day ago when he stopped drinking alcohol. Plan: Chest Pain - rule out ACS - EKG appreciated - NSR incomplete RBBB, HR 96 Qtc 411 -Troponin (-)x3. -Recommend outpatient stress test upon discharge. Ethanol Abuse, Potential Withdrawal - CIWA - high risk fall precautions - ativan 1mg q6 scheduled and ativan 1mg q1 prn withdrawl symptoms - continue multivitamin, thiamine, and folate supplement starting tomorrow 10/12 Elevated LFTs - likely due to ETOH use - avoid hepatotoxins - monitor closely via CMP - hep panel pending - hiv negative Rhabdomyolysis - Elevated Creatinine Kinase. Trending down. - Continue IV fluids - recheck CK in AM Electrolyte Abnormality - Hypokalemia monitor closely via CMP - Will continue to replete as needed. Tobacco and Polysubstance Abuse - UDS appreciated- positive for cocaine and cannaboids - ETOH level elevated - nicotine patch offered - smoking cessation advised prn - patient education provided on dangers of tobacco abuse - social work consult. Will continue to follow. Anxiety/ Panic Disorder Symptoms - psych consulted- Dr. Mi, appreciate recommendations Prophylaxis - DVT ppx- subq heparin as per zach score - GI ppx- famotidine <Jeanine Wick B - Last Filed: 10/13/17 17:30> Objective - Vital Signs/Intake and Output Vital Signs (last 24 hours): Temp Pulse Resp BP Pulse Ox 97.3 F L 75 18 132/81 98 10/13/17 08:00 10/13/17 10:00 10/13/17 08:00 10/13/17 08:00 10/13/17 06:00 Intake and Output: 10/13/17 10/13/17 06:59 18:59 Intake Total 120 Output Total 0 Balance 120 - Labs Labs: 10/13/17 05:30 10/13/17 05:30 PT 10.3 SECONDS (9.4-12.5) 10/11/17 14:50 INR 0.95 (0.93-1.08) 10/11/17 14:50 APTT 27.8 Seconds (25.1-36.5) 10/11/17 14:50 Attending/Attestation - Attestation I have personally seen and examined this patient.: Yes I have fully participated in the care of the patient.: Yes I have reviewed all pertinent clinical information, including history, physical exam and plan: Yes Notes (Text): I have seen and examined the patient at bedside. Agree with the above note with the following additions/ exceptions: Briefly this is 27 year old male with history of alcohol abuse, substance abuse who was admitted for evaluation of withdrawal from alcohol or street drugs. Patient denies chest pain however admits to diaphoresis, nausea and tremors. ACS ruled out. Recommend outpatient stress test. Continue ativan 1 q 6 rob and ativan 1 q2 prn. Hep panel pending. HIV negative. Counselling provided regarding tobacco and alcohol use. Psych consult pending. Upon discharge patient will follow up with Dr Hector Batres. Dr Jeanine Wick
--- NOTE | 2017-10-12 17:49 | CARD ---
APPROVED REPORT EKG Measurement Heart [id number] <Conclusion> Normal sinus rhythm Incomplete right bundle branch block Borderline ECG
--- NOTE | 2017-10-12 19:00 | CP.PCM.PCO ---
Physician Communication Note - Physician Communication Note Physician Communication Note: pt will be seen tomorrow, consult is for anxiety, no acute issues.
[2017-10-13] VITALS: O2SAT 98
[2017-10-13 06:35] LABS: BASO # 0.05 K/mm3 (0.0-2.0); BASO % 0.8 % (0.0-3.0); EOS # 0.1 (0.0-0.7); EOS % 2.1 % (1.5-5.0); GRAN # 3.55 (1.4-6.5); GRAN % 54.2 % (50.0-68.0); HEMATOCRIT 42.2 % (42.0-52.0); LYMPH # 2.3 (1.2-3.4); LYMPH % 35.1 % (22.0-35.0); MEAN CELL VOLUME 99.8 fl (80.0-105.0); MEAN CORPUSCULAR HEMOGLOBIN 33.6 pg (25.0-35.0); MEAN CORPUSCULAR HGB CONC 33.6 g/dl (31.0-37.0); MEAN PLATELET VOLUME 10.5 fl (7.0-11.0); MONO # 0.5 (0.1-0.6); MONO % 7.8 % (1.0-6.0); RED CELL DISTRIBUTION WIDTH 12.8 % (11.5-14.5); WHITE BLOOD COUNT 6.6 10^3/ul (4.5-11.0)
[2017-10-13 06:45] LABS: ALB/GLOB RATIO 1.4 (1.1-1.8); ALKALINE PHOSPHATASE 84 U/L (38-126); ALT/SGPT 78 U/L (7-56); AST/SGOT 76 U/L (17-59); BILIRUBIN,TOTAL 1.1 mg/dL (0.2-1.3); BLOOD UREA NITROGEN 10 mg/dL (7-21); CALCIUM 9.4 mg/dL (8.4-10.5); CARBON DIOXIDE 23 mmol/L (21-33); CHLORIDE 106 mmol/L (98-107); GFR AFRICAN-AMERICAN > 60; GLUCOSE,RANDOM 85 mg/dL (70-110); POTASSIUM 3.7 mmol/L (3.6-5.0); SODIUM 139 mmol/L (132-148); TOTAL PROTEIN 7.1 g/dL (5.8-8.3)
[2017-10-13] MEDS: Multivitamin Therapeutic Tab PO SCH (08:04)
[2017-10-13] MEDS: Sodium Chloride 0.9% 1,000 ML IV SCH (10:26)
[2017-10-13 12:12] VITALS: BP 132/81; PULSE 75; RESP 18; TEMP 97.3
--- NOTE | 2017-10-13 13:09 | CP.PCM.DIS ---
<MakenzieParkern - Last Filed: 10/13/17 18:45> Provider - Provider Date of Admission: 10/12/17 15:25 Attending physician: Jeanine Wick MD Primary care physician: Kenroy Batres MD Time Spent in preparation of Discharge (in minutes): 45 Hospital Course - Lab Results Lab Results: Most Recent Lab Values WBC 6.6 10^3/ul (4.5-11.0) 10/13/17 05:30 RBC 4.23 10^6/uL (3.5-6.1) 10/13/17 05:30 Hgb 14.2 g/dL (14.0-18.0) 10/13/17 05:30 Hct 42.2 % (42.0-52.0) 10/13/17 05:30 MCV 99.8 fl (80.0-105.0) 10/13/17 05:30 MCH 33.6 pg (25.0-35.0) 10/13/17 05:30 MCHC 33.6 g/dl (31.0-37.0) 10/13/17 05:30 RDW 12.8 % (11.5-14.5) 10/13/17 05:30 Plt Count 186 10^3/uL (120.0-450.0) 10/13/17 05:30 MPV 10.5 fl (7.0-11.0) 10/13/17 05:30 Gran % 54.2 % (50.0-68.0) 10/13/17 05:30 Lymph % (Auto) 35.1 % (22.0-35.0) H 10/13/17 05:30 [place] % (Auto) 7.8 % (1.0-6.0) H 10/13/17 05:30 Eos % (Auto) 2.1 % (1.5-5.0) 10/13/17 05:30 Baso % (Auto) 0.8 % (0.0-3.0) 10/13/17 05:30 Gran # 3.55 (1.4-6.5) 10/13/17 05:30 Lymph # 2.3 (1.2-3.4) 10/13/17 05:30 [place] # 0.5 (0.1-0.6) 10/13/17 05:30 Eos # 0.1 (0.0-0.7) 10/13/17 05:30 Baso # 0.05 K/mm3 (0.0-2.0) 10/13/17 05:30 PT 10.3 SECONDS (9.4-12.5) 10/11/17 14:50 INR 0.95 (0.93-1.08) 10/11/17 14:50 APTT 27.8 Seconds (25.1-36.5) 10/11/17 14:50 pCO2 25 mm/Hg (35-45) L 10/12/17 14:56 pO2 163.0 mm/Hg (80-100) H 10/12/17 14:56 HCO3 21.9 mmol/L (21-28) 10/12/17 14:56 ABG pH 7.55 (7.35-7.45) H 10/12/17 14:56 ABG Total CO2 22.7 mmol.L (22-28) 10/12/17 14:56 ABG O2 Saturation 99.0 % (95-98) H 10/12/17 14:56 ABG O2 Content 18.1 ML/dl (15-23) 10/12/17 14:56 ABG Base Excess 0.9 mmol/L (-2.0-3.0) 10/12/17 14:56 ABG Hemoglobin 13.2 g/dL (11.7-17.4) 10/12/17 14:56 ABG Carboxyhemoglobin 2.2 % (0.5-1.5) H 10/12/17 14:56 POC ABG HHb (Measured) 1.0 % (0-5) 10/12/17 14:56 ABG Methemoglobin 0.8 % (0.0-3.0) 10/12/17 14:56 ABG O2 Capacity 18.3 mL/dl (16-24) 10/12/17 14:56 Hgb O2 Saturation 96.1 % (95.0-98.0) 10/12/17 14:56 FiO2 21.0 % 10/12/17 14:56 Sodium 139 mmol/L (132-148) 10/13/17 05:30 Potassium 3.7 mmol/L (3.6-5.0) 10/13/17 05:30 Chloride 106 mmol/L (98-107) 10/13/17 05:30 Carbon Dioxide 23 mmol/L (21-33) 10/13/17 05:30 Anion Gap 14 (10-20) 10/13/17 05:30 BUN 10 mg/dL (7-21) 10/13/17 05:30 Creatinine 0.8 mg/dl (0.8-1.5) 10/13/17 05:30 Est GFR ( Amer) > 60 10/13/17 05:30 Est GFR (Non-Af Amer) > 60 10/13/17 05:30 POC Glucose (mg/dL) 83 mg/dL (65-110) 10/11/17 14:53 Random Glucose 85 mg/dL (70-110) 10/13/17 05:30 Hemoglobin A1c 5.8 % (4.2-6.5) 10/12/17 04:10 Calcium 9.4 mg/dL (8.4-10.5) 10/13/17 05:30 Phosphorus 3.8 mg/dL (2.5-4.5) 10/12/17 04:10 Magnesium 1.6 mg/dL (1.7-2.2) L 10/12/17 04:10 Total Bilirubin 1.1 mg/dL (0.2-1.3) 10/13/17 05:30 AST 76 U/L (17-59) H 10/13/17 05:30 ALT 78 U/L (7-56) H 10/13/17 05:30 Alkaline Phosphatase 84 U/L (38-126) 10/13/17 05:30 Lactate Dehydrogenase 599 U/L (333-699) 10/12/17 08:45 Total Creatine Kinase 430 U/L (35-230) H 10/13/17 07:10 CK-MB (CK-2) 1.0 ng/mL (0.0-3.6) 10/13/17 07:10 CK-MB (CK-2) % Cancelled 10/11/17 14:50 Troponin I < 0.01 ng/mL 10/12/17 08:45 Total Protein 7.1 g/dL (5.8-8.3) 10/13/17 05:30 Albumin 4.1 g/dL (3.0-4.8) 10/13/17 05:30 Globulin 3.0 gm/dL 10/13/17 05:30 Albumin/Globulin Ratio 1.4 (1.1-1.8) 10/13/17 05:30 Triglycerides 257 mg/dL (35-160) H 10/12/17 04:10 Cholesterol 175 mg/dL (130-200) 10/12/17 04:10 LDL Cholesterol Direct 91 mg/dL (0-129) 10/12/17 04:10 HDL Cholesterol 57 mg/dL (29-60) 10/12/17 04:10 Lipase 88 U/L (23-300) 10/11/17 14:50 Urine Color Yellow (YELLOW) 10/11/17 21:15 Urine Appearance Clear (CLEAR) 10/11/17 21:15 Urine pH 6.0 (4.7-8.0) 10/11/17 21:15 Ur Specific [place] 1.020 (1.005-1.035) 10/11/17 21:15 Urine Protein Negative mg/dL (<30 mg/dL) 10/11/17 21:15 Urine Glucose (UA) Negative mg/dL (NEGATIVE) 10/11/17 21:15 Urine Ketones Negative mg/dL (NEGATIVE) 10/11/17 21:15 Urine Blood Negative (NEGATIVE) 10/11/17 21:15 Urine Nitrate Negative (NEGATIVE) 10/11/17 21:15 Urine Bilirubin Negative (NEGATIVE) 10/11/17 21:15 Urine Urobilinogen 0.2 E.U./dL (<1 E.U./dL) 10/11/17 21:15 Ur Leukocyte Esterase Negative Kiersten/uL (NEGATIVE) 10/11/17 21:15 Salicylates < 1 mg/dL (2.0-20.0) L 10/11/17 14:50 Urine Opiates Screen Negative (NEGATIVE) 10/11/17 21:08 Urine Methadone Screen Negative (NEGATIVE) 10/11/17 21:08 Acetaminophen < 10.0 ug/ml (10.0-20.0) L 10/11/17 14:50 Ur Barbiturates Screen Negative (NEGATIVE) 10/11/17 21:08 Ur Phencyclidine Scrn Negative (NEGATIVE) 10/11/17 21:08 Ur Amphetamines Screen Negative (NEGATIVE) 10/11/17 21:08 U Benzodiazepines Scrn Positive (NEGATIVE) H 10/11/17 21:08 U Oth Cocaine Metabols Negative (NEGATIVE) 10/11/17 21:08 U Cannabinoids Screen Positive (NEGATIVE) H 10/11/17 21:08 Alcohol, Quantitative 298 mg/dL (0-10) H 10/11/17 14:50 Hepatitis A IgM Ab Negative (NEGATIVE) 10/11/17 22:00 Hep Bs Antigen Negative (NEGATIVE) 10/11/17 22:00 Hep B Core IgM Ab Negative (NEGATIVE) 10/11/17 22:00 Hepatitis C Antibody Negative (NEGATIVE) 10/11/17 22:00 HIV-1 Ab Rapid Screen Non reactive (NON REAC) 10/11/17 22:00 - Hospital Course Hospital Course: Patient is a 27 year old male with a past medical history of alcohol abuse and substance abuse who presents to the emergency department for evaluation and treatment of chest pain and palpitations which began one day ago when he stopped drinking alcohol. Patient presented to the emergency department yesterday for alcohol intoxication and was discharged earlier today. Patient states he did not drink between visits. Patient drinks between 1 pint and 1 gallon of vodka per day in order to relieve his anxiety. Admits to localized parasternal chest discomfort and SOB on exertion. Denies recent travel and sick contacts. Patient denies intractable headache, fever, chills, dizziness, blurry vision, ringing in the ears, abdominal pain, nausea, vomiting, diarrhea, constipation, and urinary symptoms. The patient was admitted for chest pain r/o ACS and alcohol withdrawal. While being admitted the patient had consults for Psychiatry while admitted. The patient had blood cultures drawn that were negative for 24 hours, negative HIV and Hep Panel and negative troponins times three. Magnesium and potassium were found to be low and were repleted on this visit. The patient was also given IV fluids via a banana bag and had one scheduled and one prn dose of Ativan on board to prevent withdrawal. Patient also had a transaminiits upon admission. 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 The patient signed out AMA. The patient was advised to follow up with PMD, Psychiatrist and Rehabilitation services upon leaving. Discharge Exam - Head Exam Head Exam: ATRAUMATIC, NORMAL INSPECTION, NORMOCEPHALIC - Eye Exam Eye Exam: EOMI, Normal appearance, PERRL Pupil Exam: NORMAL ACCOMODATION, PERRL - ENT Exam ENT Exam: Mucous Membranes Dry, Normal Exam, Normal Oropharynx - Respiratory Exam Respiratory Exam: Clear to PA & Lateral. absent: Rhonchi, Wheezes - Cardiovascular Exam Cardiovascular Exam: REGULAR RHYTHM, +S1, +S2 - GI/Abdominal Exam GI & Abdominal Exam: Normal Bowel Sounds, Unremarkable - Extremities Exam Extremities exam: full ROM - Back Exam Back exam: NORMAL INSPECTION. absent: CVA tenderness (L), CVA tenderness (R) - Neurological Exam Neurological exam: Alert, CN II-XII Intact, Normal Gait, Oriented x3 - Psychiatric Exam Psychiatric exam: Normal Affect, Normal Mood - Skin Skin Exam: Dry, Normal Color Discharge Plan - Follow Up Plan Condition: STABLE Disposition: AGAINST MEDICAL ADVICE Instructions: How to Stop Smoking (GEN), Abuse of Alcohol (GEN), Alcohol Withdrawal (GEN) Additional Instructions: 1.Patient advised to f/u with PMD within one week of discharge. 2.Patient advised to f/u with Rehabilitation services within one week of discharge. 3. Advised patient to return to emergency department for any new or worsening symptoms. Referrals: Kenroy Batres MD [Primary Care Provider] - <Jeanine Wick - Last Filed: 10/14/17 16:26> Provider - Provider Date of Admission: 10/12/17 15:25 Attending physician: Jeanine Wick MD Primary care physician: Kenroy Batres MD Hospital Course - Lab Results Lab Results: Most Recent Lab Values WBC 6.6 10^3/ul (4.5-11.0) 10/13/17 05:30 RBC 4.23 10^6/uL (3.5-6.1) 10/13/17 05:30 Hgb 14.2 g/dL (14.0-18.0) 10/13/17 05:30 Hct 42.2 % (42.0-52.0) 10/13/17 05:30 MCV 99.8 fl (80.0-105.0) 10/13/17 05:30 MCH 33.6 pg (25.0-35.0) 10/13/17 05:30 MCHC 33.6 g/dl (31.0-37.0) 10/13/17 05:30 RDW 12.8 % (11.5-14.5) 10/13/17 05:30 Plt Count 186 10^3/uL (120.0-450.0) 10/13/17 05:30 MPV 10.5 fl (7.0-11.0) 10/13/17 05:30 Gran % 54.2 % (50.0-68.0) 10/13/17 05:30 Lymph % (Auto) 35.1 % (22.0-35.0) H 10/13/17 05:30 [place] % (Auto) 7.8 % (1.0-6.0) H 10/13/17 05:30 Eos % (Auto) 2.1 % (1.5-5.0) 10/13/17 05:30 Baso % (Auto) 0.8 % (0.0-3.0) 10/13/17 05:30 Gran # 3.55 (1.4-6.5) 10/13/17 05:30 Lymph # 2.3 (1.2-3.4) 10/13/17 05:30 [place] # 0.5 (0.1-0.6) 10/13/17 05:30 Eos # 0.1 (0.0-0.7) 10/13/17 05:30 Baso # 0.05 K/mm3 (0.0-2.0) 10/13/17 05:30 PT 10.3 SECONDS (9.4-12.5) 10/11/17 14:50 INR 0.95 (0.93-1.08) 10/11/17 14:50 APTT 27.8 Seconds (25.1-36.5) 10/11/17 14:50 pCO2 25 mm/Hg (35-45) L 10/12/17 14:56 pO2 163.0 mm/Hg (80-100) H 10/12/17 14:56 HCO3 21.9 mmol/L (21-28) 10/12/17 14:56 ABG pH 7.55 (7.35-7.45) H 10/12/17 14:56 ABG Total CO2 22.7 mmol.L (22-28) 10/12/17 14:56 ABG O2 Saturation 99.0 % (95-98) H 10/12/17 14:56 ABG O2 Content 18.1 ML/dl (15-23) 10/12/17 14:56 ABG Base Excess 0.9 mmol/L (-2.0-3.0) 10/12/17 14:56 ABG Hemoglobin 13.2 g/dL (11.7-17.4) 10/12/17 14:56 ABG Carboxyhemoglobin 2.2 % (0.5-1.5) H 10/12/17 14:56 POC ABG HHb (Measured) 1.0 % (0-5) 10/12/17 14:56 ABG Methemoglobin 0.8 % (0.0-3.0) 10/12/17 14:56 ABG O2 Capacity 18.3 mL/dl (16-24) 10/12/17 14:56 Hgb O2 Saturation 96.1 % (95.0-98.0) 10/12/17 14:56 FiO2 21.0 % 10/12/17 14:56 Sodium 139 mmol/L (132-148) 10/13/17 05:30 Potassium 3.7 mmol/L (3.6-5.0) 10/13/17 05:30 Chloride 106 mmol/L (98-107) 10/13/17 05:30 Carbon Dioxide 23 mmol/L (21-33) 10/13/17 05:30 Anion Gap 14 (10-20) 10/13/17 05:30 BUN 10 mg/dL (7-21) 10/13/17 05:30 Creatinine 0.8 mg/dl (0.8-1.5) 10/13/17 05:30 Est GFR ( Amer) > 60 10/13/17 05:30 Est GFR (Non-Af Amer) > 60 10/13/17 05:30 POC Glucose (mg/dL) 83 mg/dL (65-110) 10/11/17 14:53 Random Glucose 85 mg/dL (70-110) 10/13/17 05:30 Hemoglobin A1c 5.8 % (4.2-6.5) 10/12/17 04:10 Calcium 9.4 mg/dL (8.4-10.5) 10/13/17 05:30 Phosphorus 3.8 mg/dL (2.5-4.5) 10/12/17 04:10 Magnesium 1.6 mg/dL (1.7-2.2) L 10/12/17 04:10 Total Bilirubin 1.1 mg/dL (0.2-1.3) 10/13/17 05:30 AST 76 U/L (17-59) H 10/13/17 05:30 ALT 78 U/L (7-56) H 10/13/17 05:30 Alkaline Phosphatase 84 U/L (38-126) 10/13/17 05:30 Lactate Dehydrogenase 599 U/L (333-699) 10/12/17 08:45 Total Creatine Kinase 430 U/L (35-230) H 10/13/17 07:10 CK-MB (CK-2) 1.0 ng/mL (0.0-3.6) 10/13/17 07:10 CK-MB (CK-2) % Cancelled 10/11/17 14:50 Troponin I < 0.01 ng/mL 10/12/17 08:45 Total Protein 7.1 g/dL (5.8-8.3) 10/13/17 05:30 Albumin 4.1 g/dL (3.0-4.8) 10/13/17 05:30 Globulin 3.0 gm/dL 10/13/17 05:30 Albumin/Globulin Ratio 1.4 (1.1-1.8) 10/13/17 05:30 Triglycerides 257 mg/dL (35-160) H 10/12/17 04:10 Cholesterol 175 mg/dL (130-200) 10/12/17 04:10 LDL Cholesterol Direct 91 mg/dL (0-129) 10/12/17 04:10 HDL Cholesterol 57 mg/dL (29-60) 10/12/17 04:10 Lipase 88 U/L (23-300) 10/11/17 14:50 Urine Color Yellow (YELLOW) 10/11/17 21:15 Urine Appearance Clear (CLEAR) 10/11/17 21:15 Urine pH 6.0 (4.7-8.0) 10/11/17 21:15 Ur Specific [place] 1.020 (1.005-1.035) 10/11/17 21:15 Urine Protein Negative mg/dL (<30 mg/dL) 10/11/17 21:15 Urine Glucose (UA) Negative mg/dL (NEGATIVE) 10/11/17 21:15 Urine Ketones Negative mg/dL (NEGATIVE) 10/11/17 21:15 Urine Blood Negative (NEGATIVE) 10/11/17 21:15 Urine Nitrate Negative (NEGATIVE) 10/11/17 21:15 Urine Bilirubin Negative (NEGATIVE) 10/11/17 21:15 Urine Urobilinogen 0.2 E.U./dL (<1 E.U./dL) 10/11/17 21:15 Ur Leukocyte Esterase Negative Kiersten/uL (NEGATIVE) 10/11/17 21:15 Salicylates < 1 mg/dL (2.0-20.0) L 10/11/17 14:50 Urine Opiates Screen Negative (NEGATIVE) 10/11/17 21:08 Urine Methadone Screen Negative (NEGATIVE) 10/11/17 21:08 Acetaminophen < 10.0 ug/ml (10.0-20.0) L 10/11/17 14:50 Ur Barbiturates Screen Negative (NEGATIVE) 10/11/17 21:08 Ur Phencyclidine Scrn Negative (NEGATIVE) 10/11/17 21:08 Ur Amphetamines Screen Negative (NEGATIVE) 10/11/17 21:08 U Benzodiazepines Scrn Positive (NEGATIVE) H 10/11/17 21:08 U Oth Cocaine Metabols Negative (NEGATIVE) 10/11/17 21:08 U Cannabinoids Screen Positive (NEGATIVE) H 10/11/17 21:08 Alcohol, Quantitative 298 mg/dL (0-10) H 10/11/17 14:50 Hepatitis A IgM Ab Negative (NEGATIVE) 10/11/17 22:00 Hep Bs Antigen Negative (NEGATIVE) 10/11/17 22:00 Hep B Core IgM Ab Negative (NEGATIVE) 10/11/17 22:00 Hepatitis C Antibody Negative (NEGATIVE) 10/11/17 22:00 HIV-1 Ab Rapid Screen Non reactive (NON REAC) 10/11/17 22:00 Attending/Attestation - Attestation I have personally seen and examined this patient.: Yes I have fully participated in the care of the patient.: Yes I have reviewed all pertinent clinical information, including history, physical exam and plan: Yes Notes (Text): I have seen and examined the patient at bedside. Agree with the above note with the following additions/ exceptions: Briefly this is 27 year old male with history of alcohol abuse, substance abuse who was admitted for evaluation of withdrawal from alcohol or street drugs. Patient denies chest pain however admits to diaphoresis, nausea and tremors. ACS ruled out. Recommend outpatient stress test. Plan to taper ativan slowly. Patient reports that he was taking librium with alcohol at home. Will be hesitant to give ativan. Encouraged patient to stay for ativan taper however he decided to leave AMA. Patient is aware that he can have benzodiazepine withdrawal. Hep panel negative. HIV negative. Counselling provided regarding tobacco and alcohol use. Inpatient rehab recommended. Psych consult appreciated. Upon discharge patient will follow up with Dr Hector Batres. Dr Jeanine Wick
--- NOTE | 2017-10-14 03:44 | CON ---
DATE: HISTORY OF PRESENT ILLNESS: The patient is a 27-year-old male with long and debilitating history of alcohol use disorder, polysubstance abuse and dependence. This engineering writer is familiar to this patient from the consultation services. The patient was admitted on the medical side for evaluation of alcohol withdrawal symptoms. Psych consult was called for evaluation of anxiety and panic disorder. The patient was seen and examined today. The patient presented to be alert, oriented, poor personal hygiene, seems to be malodorous. The patient denied being depressed, denied thoughts of harming himself or others. The patient reported that he has addiction to the alcohol, seems to be knowledgeable about possible alcohol withdrawal symptoms. The patient said prior to coming to the hospital he had seizure-like activity, which was related to abruptly stopping his alcohol consumption. The patient reported that he is feeling comfortable right now. He denied any withdrawal symptoms. The patient was educated about the consequences of delirium in the future. The patient was advised to look for help in [facility]. The patient is aware about AA meeting, NA meeting. The patient also is aware about [facility] programs at [facility], as well as [facility], as well as [place] [facility]. The patient does not want to go to inpatient rehab now. This engineering writer reviewed vital signs, seem to be stable. There are no signs of withdrawals. MEDICATIONS: Reviewed. The patient is on Ativan and folic acid. Yesterday, the patient got altogether 8 mg of Ativan. The patient is on multivitamins, Nicoderm, Zofran, and thiamine. LABORATORY DATA: Labs reviewed. Toxicology was positive alcohol 298, cannabis positive, and benzodiazepines positive. MENTAL STATUS EXAMINATION: The patient was alert and oriented, pleasant and superficially cooperative. Fair eye contact. Speech was normal rate, tone, quality and quantity. Mood described, "I feel fine now, I do not want to hurt myself or others." Thought process seems to be coherent and goal directed. Thought content, the patient denied visual, auditory, or tactile hallucinations; denied paranoid ideation. The patient does not appear to be psychotic. Insight and judgment seem to be poor in regard of the substance abuse. IMPRESSION: Most likely, the patient has alcohol use disorder and polysubstance abuse and dependence. PLAN: Case was discussed with Dr. Jeanine Wick. Multivitamins, thiamine, and folic acid need to be continued. The patient pose no imminent danger to self or others. The patient might benefit from the inpatient rehabilitation, but the patient does not want to go to inpatient rehab right now. The patient was educated about AA meetings, NA meetings. The patient verbalized understanding. The patient has all referrals and contact information. The patient said that "I have all the phone numbers in my wallet." The patient needs to be weaned off from the benzodiazepines. Yesterday, the patient was taking 8 mg of Ativan a day, today could be 6 mg for another 2 days, after that 4 mg for another two days, then 2 mg for another two days, then it could be safely discontinued. This engineering writer discussed naltrexone options, but the patient needs to establish with outpatient provider, as well as substance counselor, as well as [facility]. Case was discussed with Dr. Wick. Should you have any questions, give me a call back. The patient is not in any imminent danger to self or others. Could be followed up by this engineering writer tomorrow just to make sure that he is tolerating tapering dose of benzodiazepines well. Thank you very much for letting me participate in the care of your patient. As per nursing staff, the patient is well, no bizarre or agitated behavior. Hollie Orellana MD
--- NOTE | 2017-10-14 06:59 | CARD ---
APPROVED REPORT EKG Measurement Heart [id number] <Conclusion> Normal sinus rhythm Incomplete right bundle branch block Borderline ECG
== END 2017-10-13 12:49 | disposition left against medical advice (07) | DRG 743 ==
LOC: ED 14:41 → ERH 20:44 → 3RSO 22:51 → OBSVTOIN 10-12 15:25
PROVIDERS: ADMIT Internal Medicine; ATTEND Hospitalist
DX: F10.239 Alcohol dependence with withdrawal, unspecified (principal); F19.20 Other psychoactive substance dependence, uncomplicated; M62.82 Rhabdomyolysis; E87.6 Hypokalemia; F41.0 Panic disorder [episodic paroxysmal anxiety]; F17.210 Nicotine dependence, cigarettes, uncomplicated; Y90.8 Blood alcohol level of 240 mg/100 ml or more

== ENCOUNTER 2017-11-14 23:56 | Inpatient (IN) | payer MEDICAID, OTHER ==
[2017-11-15 00:20] VITALS: BMI 24.7
[2017-11-15] MEDS ORDERED: Multivitamin (MVI) 10 ML, Thiamine 100 MG, Folic Acid 1 MG in Sodium Chloride 0.9% 1,00... IV ONE (00:23)
[2017-11-15] MEDS ORDERED: Multivitamin (MVI) 10 ML, Thiamine 100 MG, Folic Acid 1 MG in Dextrose 5% In Water 1,00... IV ONE (00:25)
[2017-11-15] MEDS ORDERED: Magnesium Sulfate 2 GM in Sodium Chloride 0.9% 100 ML IVPB ONE (00:27)
[2017-11-15 01:04] LABS: ALBUMIN 5.4 g/dL (3.0-4.8); ALT/SGPT 155 U/L (7-56); AMYLASE 63 U/L (35-125); AST/SGOT 279 U/L (17-59); BLOOD UREA NITROGEN 8 mg/dL (7-21); CALCIUM 11.4 mg/dL (8.4-10.5); GFR AFRICAN-AMERICAN > 60; GFR NON-AFRICAN AMERICAN > 60; LIPASE 96 U/L (23-300)
[2017-11-15 01:06] LABS: BASO # 0.06 K/mm3 (0.0-2.0); BASO % 0.9 % (0.0-3.0); EOS % 0.3 % (1.5-5.0); GRAN # 3.73 (1.4-6.5); GRAN % 53.3 % (50.0-68.0); HEMOGLOBIN 16.1 g/dL (14.0-18.0); LYMPH # 2.5 (1.2-3.4); LYMPH % 35.2 % (22.0-35.0); MEAN CELL VOLUME 98.3 fl (80.0-105.0); MEAN CORPUSCULAR HEMOGLOBIN 34.6 pg (25.0-35.0); MEAN CORPUSCULAR HGB CONC 35.2 g/dl (31.0-37.0); MEAN PLATELET VOLUME 11.5 fl (7.0-11.0); MONO # 0.7 (0.1-0.6); MONO % 10.3 % (1.0-6.0); RBC 4.65 10^6/uL (3.5-6.1); RED CELL DISTRIBUTION WIDTH 12.9 % (11.5-14.5)
--- NOTE | 2017-11-15 01:33 | CP.PCM.CON ---
History of Present Illness - History of Present Illness History of Present Illness: ICU Consult Note for Liseth Barcenas PGY2 Reason for consult: Alcohol withdrawal ROS: 12 point review of systems negative except as indicated in HPI Past medical history: alcohol and substance abuse Past surgical history: Home meds: None Allergies: NKDA Social history: smokes 1/2ppd, Family history PMHx: alcohol abuse and substance abuse PSHx: denies Family Hx: significant for diabetes Social Hx: smokes half a pack of cigarettes a da.. Drinks a pint to half gallon of vodka a day for approximatley 6 years. Admits to cocaine use and methamphetamine use. Medications: no medications at home PMD: Kenroy Batres in [place] Pharmacy: [facility] Past Patient History - Infectious Disease Hx of Infectious Diseases: None - Tetanus Immunizations Tetanus Immunization: Unknown - Past Social History Smoking Status: Heavy Smoker > 10 Cigarettes Daily - CARDIAC Hx Cardiac Disorders: No - PULMONARY Hx Respiratory Disorders: No - NEUROLOGICAL Hx Neurological Disorder: No - HEENT Hx HEENT Problems: No - RENAL Hx Chronic Kidney Disease: No - ENDOCRINE/METABOLIC Hx Endocrine Disorders: No - HEMATOLOGICAL/ONCOLOGICAL Hx Blood Disorders: No - INTEGUMENTARY Hx Dermatological Problems: No - MUSCULOSKELETAL/RHEUMATOLOGICAL Hx Musculoskeletal Disorders: No - GASTROINTESTINAL Hx Gastrointestinal Disorders: Yes (GASTRITIS,APPENDICITIS) - GENITOURINARY/GYNECOLOGICAL Hx Genitourinary Disorders: No - PSYCHIATRIC Hx Psychophysiologic Disorder: Yes Hx Substance Use: Yes Other/Comment: alcohol abuse - SURGICAL HISTORY Hx Appendectomy: Yes Other/Comment: right arm surgery - ANESTHESIA Hx Anesthesia: Yes Hx Anesthesia Reactions: No Hx Malignant Hyperthermia: No Meds Allergies/Adverse Reactions: Allergies Allergy/AdvReac Type Severity Reaction Status Date / Time No Known Allergies Allergy Verified 11/15/17 00:20 - Medications Medications: Current Medications Multivitamins/Vitamin C 10 ml/Thiamine HCl 100 mg/ Folic Acid 1 mg/ Dextrose 1, 011.2 mls @ 500 mls/hr IV .Q2H2M ONE Stop: 11/15/17 02:26 Last Admin: 11/15/17 01:02 Dose: 500 mls/hr Results - Vital Signs Recent Vital Signs: Last Vital Signs Temp 97.7 F 11/15/17 00:31 Pulse 103 H 11/15/17 00:31 Resp 24 11/15/17 00:31 BP 150/94 H 11/15/17 00:31 Pulse Ox 100 11/15/17 00:31 - Labs Result Diagrams: 11/15/17 00:31 11/15/17 00:31 Labs: Laboratory Results - last 24 hr 11/15/17 11/15/17 11/15/17 00:29 00:31 00:31 WBC 7.0 RBC 4.65 Hgb 16.1 Hct 45.7 MCV 98.3 MCH 34.6 MCHC 35.2 RDW 12.9 Plt Count 164 MPV 11.5 H Gran % 53.3 Lymph % (Auto) 35.2 H [place] % (Auto) 10.3 H Eos % (Auto) 0.3 L Baso % (Auto) 0.9 Gran # 3.73 Lymph # 2.5 [place] # 0.7 H Eos # 0.0 Baso # 0.06 Sodium 142 Potassium 3.3 L Chloride 99 Carbon Dioxide 20 L Anion Gap 26 H BUN 8 Creatinine 0.8 Est GFR ( Amer) > 60 Est GFR (Non-Af Amer) > 60 POC Glucose (mg/dL) 122 H Random Glucose 135 H Calcium 11.4 H Phosphorus 2.2 L Magnesium 2.0 Total Bilirubin 0.8 AST 279 H D ALT 155 H Alkaline Phosphatase 128 H D Total Protein 9.2 H Albumin 5.4 H Amylase 63 Lipase 96 Alcohol, Quantitative 11/15/17 00:31 WBC RBC Hgb Hct MCV MCH MCHC RDW Plt Count MPV Gran % Lymph % (Auto) [place] % (Auto) Eos % (Auto) Baso % (Auto) Gran # Lymph # [place] # Eos # Baso # Sodium Potassium Chloride Carbon Dioxide Anion Gap BUN Creatinine Est GFR ( Amer) Est GFR (Non-Af Amer) POC Glucose (mg/dL) Random Glucose Calcium Phosphorus Magnesium Total Bilirubin AST ALT Alkaline Phosphatase Total Protein Albumin Amylase Lipase Alcohol, Quantitative 180 H
[2017-11-15] MEDS ORDERED: Thiamine 100 mg/ml Inj IM STA (01:55)
[2017-11-15] MEDS ORDERED: Sodium Chloride 0.9% 1,000 ML IV STA (01:55)
[2017-11-15] MEDS ORDERED: Potassium Phosphate 15 MMOLE in Sodium Chloride 0.9% 250 ML IVPB ONE (01:59)
[2017-11-15 02:15] LABS: ALB/GLOB RATIO 1.4 (1.1-1.8)
--- NOTE | 2017-11-15 02:19 | CP.PCM.HP ---
<Leticia Peña - Last Filed: 11/15/17 02:01> History of Present Illness - History of Present Illness History of Present Illness: H&P for Liseth Barcenas PGY2 This is a 27yo male with past medical history of alcohol and substance abuse who came to ED for nausea and vomiting since this morning. Patient was sedated upon examination. History was obtained through staff and previous records. Patient has been trying to cut down on his alcohol use. His last drink was this morning and he began to have epigastric pain with nausea and vomiting. He has had these symptoms before when he cuts down on his drinking. In ED, patient was tachycardic and tremulous. He was given 6mg of Ativan and his symptoms subsided. ROS could not be obtained. Past medical history: alcohol and substance abuse Past surgical history: right upper extremity surgical repair s/p accident, appendectomy, right ankle surgery Home meds: None Allergies: NKDA Social history: smokes 1/2ppd, alcohol abuse (used to drink about half gallon of vodka per day x 6yrs), used to do cocaine and methamphetamine from previous records Family history: Diabetes Present on Admission - Present on Admission Any Indicators Present on Admission: No Review of Systems - Review of Systems Systems not reviewed;Unavailable: Other (sedated) Past Patient History - Infectious Disease Hx of Infectious Diseases: None - Tetanus Immunizations Tetanus Immunization: Unknown - Past Social History Smoking Status: Heavy Smoker > 10 Cigarettes Daily Alcohol: > 2 Drinks/Day Drugs: Cocaine, Methamphetamine Home Situation {Lives}: Alone - CARDIAC Hx Cardiac Disorders: No - PULMONARY Hx Respiratory Disorders: No - NEUROLOGICAL Hx Neurological Disorder: No - HEENT Hx HEENT Problems: No - RENAL Hx Chronic Kidney Disease: No - ENDOCRINE/METABOLIC Hx Endocrine Disorders: No - HEMATOLOGICAL/ONCOLOGICAL Hx Blood Disorders: No - INTEGUMENTARY Hx Dermatological Problems: No - MUSCULOSKELETAL/RHEUMATOLOGICAL Hx Musculoskeletal Disorders: No - GASTROINTESTINAL Hx Gastrointestinal Disorders: Yes (GASTRITIS,APPENDICITIS) - GENITOURINARY/GYNECOLOGICAL Hx Genitourinary Disorders: No - PSYCHIATRIC Hx Psychophysiologic Disorder: Yes Hx Substance Use: Yes Other/Comment: alcohol abuse - SURGICAL HISTORY Hx Appendectomy: Yes Other/Comment: right arm surgery - ANESTHESIA Hx Anesthesia: Yes Hx Anesthesia Reactions: No Hx Malignant Hyperthermia: No Meds Allergies/Adverse Reactions: Allergies Allergy/AdvReac Type Severity Reaction Status Date / Time No Known Allergies Allergy Verified 11/15/17 00:20 Physical Exam - Constitutional Appears: No Acute Distress - Head Exam Head Exam: ATRAUMATIC, NORMAL INSPECTION, NORMOCEPHALIC - Eye Exam Eye Exam: Normal appearance, PERRL Pupil Exam: Mydriatic (4mm pupils bilaterally ), NORMAL ACCOMODATION, PERRL - ENT Exam ENT Exam: Mucous Membranes Dry - Respiratory Exam Respiratory Exam: Clear to Auscultation Bilateral, NORMAL BREATHING PATTERN. absent: Rales, Rhonchi, Wheezes - Cardiovascular Exam Cardiovascular Exam: REGULAR RHYTHM, +S1, +S2. absent: Gallop, Rubs, Systolic Murmur - GI/Abdominal Exam GI & Abdominal Exam: Normal Bowel Sounds. absent: Tenderness - Extremities Exam Extremities exam: Positive for: normal inspection. Negative for: calf tenderness, pedal edema - Neurological Exam Neurological exam: Alert, CN II-XII Intact, Oriented x3 - Skin Skin Exam: Dry, Warm Results - Vital Signs Recent Vital Signs: Last Vital Signs Temp 97.7 F 11/15/17 00:31 Pulse 103 H 11/15/17 00:31 Resp 24 11/15/17 00:31 BP 150/94 H 11/15/17 00:31 Pulse Ox 100 11/15/17 00:31 - Labs Result Diagrams: 11/15/17 00:31 11/15/17 00:31 Labs: Laboratory Results - last 24 hr 11/15/17 11/15/17 11/15/17 00:29 00:31 00:31 WBC 7.0 RBC 4.65 Hgb 16.1 Hct 45.7 MCV 98.3 MCH 34.6 MCHC 35.2 RDW 12.9 Plt Count 164 MPV 11.5 H Gran % 53.3 Lymph % (Auto) 35.2 H [place] % (Auto) 10.3 H Eos % (Auto) 0.3 L Baso % (Auto) 0.9 Gran # 3.73 Lymph # 2.5 [place] # 0.7 H Eos # 0.0 Baso # 0.06 Sodium 142 Potassium 3.3 L Chloride 99 Carbon Dioxide 20 L Anion Gap 26 H BUN 8 Creatinine 0.8 Est GFR ( Amer) > 60 Est GFR (Non-Af Amer) > 60 POC Glucose (mg/dL) 122 H Random Glucose 135 H Calcium 11.4 H Phosphorus 2.2 L Magnesium 2.0 Total Bilirubin 0.8 AST 279 H D ALT 155 H Alkaline Phosphatase 128 H D Total Protein 9.2 H Albumin 5.4 H Amylase 63 Lipase 96 Alcohol, Quantitative 11/15/17 00:31 WBC RBC Hgb Hct MCV MCH MCHC RDW Plt Count MPV Gran % Lymph % (Auto) [place] % (Auto) Eos % (Auto) Baso % (Auto) Gran # Lymph # [place] # Eos # Baso # Sodium Potassium Chloride Carbon Dioxide Anion Gap BUN Creatinine Est GFR ( Amer) Est GFR (Non-Af Amer) POC Glucose (mg/dL) Random Glucose Calcium Phosphorus Magnesium Total Bilirubin AST ALT Alkaline Phosphatase Total Protein Albumin Amylase Lipase Alcohol, Quantitative 180 H Assessment & Plan - Assessment and Plan (Free Text) Assessment: This is a 27yo male with alcohol and substance abuse admitted for alcohol withdrawal. Plan: 1. Alcohol withdrawal - EKG showed NSR@69 - CIWA protocol - seizure precaution - aspiration precaution - Ativan 1q3 prn - Banana bag - Thiamine IM once, will start PO Thiamine and multivitamin once alert - zofran prn nausea - Will monitor electrolytes and replace as needed - Will keep NPO until more alert - UDS pending - Neuro check q4 2. Transaminitis - Secondary to alcohol abuse - Will continue to monitor 3. Tobacco abuse - Business Test Analyst patient on tobacco cessation GI ppx: Protonix DVT ppx: SCDs Case seen, discussed and reviewed with attending. Liseth Peña PGY2 - Date & Time Date: 11/15/17 Time: 02:27 <Nina SEGOVIA,Mesfin - Last Filed: 11/15/17 08:07> Results - Vital Signs Recent Vital Signs: Last Vital Signs Temp 97.7 F 11/15/17 00:31 Pulse 107 H 11/15/17 04:21 Resp 24 11/15/17 04:21 BP 128/76 11/15/17 04:21 Pulse Ox 96 11/15/17 03:55 - Labs Result Diagrams: 11/15/17 00:31 11/15/17 00:31 Attending/Attestation - Attestation I have personally seen and examined this patient.: Yes I have fully participated in the care of the patient.: Yes I have reviewed all pertinent clinical information: Yes Notes (Text): -I agree with the above H&P completed by the resident physician with the following additions and/or changes: -The patient is a 27 year old man with a history of polysubstance and chronic alcohol abuse being admitted to the ICU for acute alcohol withdrawal. He will be placed on Precedex drip for agitation as well as IV PRN Ativan. Also banana bag around the clock and seizure precautions. Check urine drug screen as well.
--- NOTE | 2017-11-15 02:21 | ED PDOC ---
Arrival/HPI - General Historian: Patient - General Chief Complaint: Alcohol Ingestion Time Seen by Provider: 11/15/17 00:22 - History of Present Illness Narrative History of Present Illness (Text): 11/15/17 02:22 27-year-old male with a history of alcohol abuse presents today in alcohol withdrawal. Patient states that he was laying in bed and suddenly did not feel well. Patient states since last drink was early this morning. Patient states he' s been trying to get into a detox program and has been unsuccessful. Patient states he is currently on the waiting list for [facility] detox program. Patient is complaining of feeling very anxious and feeling very agitated. Patient's friend at bedside states the patient has been shaking nonstop. Patient states symptoms are similar to his previous alcohol withdrawal. (Lizzette Scales) Past Medical History - Provider Review Nursing Documentation Reviewed: Yes - Travel History Have you recently traveled outside [place] w/in the past 3 mons?: No - Past History Past History: No Previous (alcohol dependent) - Infectious Disease Hx of Infectious Diseases: None - Tetanus Immunization Tetanus Immunization: Unknown - Past Medical History Past Medical History: No Previous - Cardiac Hx Cardiac Disorders: No - Pulmonary Hx Respiratory Disorders: No - Neurological Hx Neurological Disorder: No - HEENT Hx HEENT Disorder: No - Renal Hx Renal Disorder: No - Endocrine/Metabolic Hx Endocrine Disorders: No - Hematological/Oncological Hx Blood Disorders: No - Integumentary Hx Dermatological Disorder: No - Musculoskeletal/Rheumatological Hx Musculoskeletal Disorders: No - Gastrointestinal Hx Gastrointestinal Disorders: Yes (GASTRITIS,APPENDICITIS) - Genitourinary/Gynecological Hx Genitourinary Disorders: No - Psychiatric Hx Psychophysiologic Disorder: Yes Hx Substance Use: Yes Other/Comment: alcohol abuse - Past Surgical History Past Surgical History: No Previous - Surgical History Hx Appendectomy: Yes Other/Comment: right arm surgery - Anesthesia Hx Anesthesia: Yes Hx Anesthesia Reactions: No Hx Malignant Hyperthermia: No - Suicidal Assessment Feels Threatened In Home Enviroment: No Family/Social History - Physician Review Nursing Documentation Reviewed: Yes Family/Social History: Unknown Family HX Smoking Status: Heavy Smoker > 10 Cigarettes Daily Hx Alcohol Use: Yes Hx Substance Use: Yes Hx Substance Use Treatment: No Allergies/Home Meds Allergies/Adverse Reactions: Allergies No Known Allergies Allergy (Verified 11/15/17 00:20) Home Medications: Home Meds Medication Instructions Recorded Confirmed No Known Home Med 11/15/17 11/15/17 Review of Systems - Review of Systems Constitutional: absent: Fevers Respiratory: SOB Cardiovascular: Palpitations Gastrointestinal: Diarrhea, Nausea, Vomiting. absent: Abdominal Pain Psychiatric: Anxiety. absent: Suicidal Ideation Physical Exam Vital Signs Reviewed: Yes Temperature: Afebrile Blood Pressure: Hypertensive Pulse: Tachycardic Respiratory Rate: Tachypneic Appearance: Positive for: Well-Appearing, Non-Toxic, Uncomfortable Pain Distress: Moderate Mental Status: Positive for: Alert and Oriented X 3 Finger Stick Blood Glucose: 122 - Systems Exam Head: Present: Atraumatic Mouth: Present: Moist Mucous Membranes Nose (External): Present: Atraumatic Neck: Present: Normal Range of Motion Respiratory/Chest: Present: Clear to Auscultation, Good Air Exchange, Tachypneic. No: Respiratory Distress, Accessory Muscle Use Cardiovascular: Present: Tachycardic. No: Murmurs Abdomen: No: Tenderness, Distention, Rebound, Guarding Back: Present: Normal Inspection Upper Extremity: Present: Other (+ tremor) Lower Extremity: Present: Other (+ tremor) Neurological: Present: GCS=15 Skin: Present: Warm, Dry Psychiatric: Present: Alert, Oriented x 3, Anxious, Agitated Vital Signs Temp Pulse Resp BP Pulse Ox 11/15/17 00:31 97.7 F 103 H 24 150/94 H 100 Medical Decision Making ED Course and Treatment: 11/15/17 02:25 27yr old male presents in ETOH withdrawal. hypertensive and tachycardic, tachypneic tremulous, anxious and agitated pt seen and evaluated by dr. thorne pt given 2mg ativan IVp pt remains tremulous and tachycardic; addition 4mg of ativan given. EKG: NSR at 69bpm; no st elevation, RBBB cbc; wnl cmp; elevated ast, alt, glucose; anion gap26 alcohol; 180 pt reassessment; relaxed; vitals improved; pt feeling better. case discussed with dr. garber in depth; accepts admission to ICU for alcohol withdrawal. impression; alcohol withdrawal. admit to ICU. (Lizzette Scales) - Lab Interpretations Lab Results: 11/15/17 00:31 11/15/17 00:31 Lab Results 11/15/17 00:31: Alcohol, Quantitative 180 H 11/15/17 00:31: Sodium 142, Potassium 3.3 L, Chloride 99, Carbon Dioxide 20 L, Anion Gap 26 H, BUN 8, Creatinine 0.8, Est GFR ( Amer) > 60, Est GFR (Non -Af Amer) > 60, Random Glucose 135 H, Calcium 11.4 H, Phosphorus 2.2 L, Magnesium 2.0, Total Bilirubin 0.8, AST 279 H D, ALT 155 H, Alkaline Phosphatase 128 H D, Total Protein 9.2 H, Albumin 5.4 H, Globulin 3.9, Albumin/ Globulin Ratio 1.4, Amylase 63, Lipase 96 11/15/17 00:31: WBC 7.0, RBC 4.65, Hgb 16.1, Hct 45.7, MCV 98.3, MCH 34.6, MCHC 35.2, RDW 12.9, Plt Count 164, MPV 11.5 H, Gran % 53.3, Lymph % (Auto) 35.2 H, [place] % (Auto) 10.3 H, Eos % (Auto) 0.3 L, Baso % (Auto) 0.9, Gran # 3.73, Lymph # 2.5, [place] # 0.7 H, Eos # 0.0, Baso # 0.06 11/15/17 00:29: POC Glucose (mg/dL) 122 H - RAD Interpretation Radiology Orders: 11/15/17 00:23 CHEST PORTABLE [RAD] Stat - Medication Orders Current Medication Orders: Folic Acid 1 mg/ Thiamine HCl 100 mg/ Multivitamins/Vitamin C 10 ml/ Dextrose 1 ,011.2 mls @ 100 mls/hr IV .Q10H7M [facility] Last Admin: 11/15/17 02:50 Dose: 100 mls/hr eMAR Start Stop Document 11/15/17 02:50 LAC (Rec: 11/15/17 02:51 [id number] Intravenous Solution Start Date 11/15/17 Start Time 02:51 End Date 11/15/17 End time 10:00 Total Infusion Time 429 Potassium Chloride (Potassium Chloride 10 Meq/100 Ml) 10 meq in 100 mls @ 50 mls/hr IVPB ONCE ONE Stop: 11/15/17 03:58 Last Admin: 11/15/17 02:51 Dose: 50 mls/hr eMAR Start Stop Document 11/15/17 02:51 LAC (Rec: 11/15/17 02:52 [id number] Intravenous Solution Start Date 11/15/17 Start Time 02:52 End Date 11/15/17 End time 05:00 Total Infusion Time 128 Potassium Phosphate 15 mmole/ (Sodium Chloride) 255 mls @ 42.5 mls/hr IVPB ONCE ONE Stop: 11/15/17 07:58 Lorazepam (Ativan) 1 mg IVP Q3H PRN; Protocol PRN Reason: Anxiety Pantoprazole Sodium (Protonix Inj) 40 mg IVP DAILY [facility] Discontinued Medications Multivitamins/Vitamin C 10 ml/Thiamine HCl 100 mg/ Folic Acid 1 mg/ Dextrose 1, 011.2 mls @ 500 mls/hr IV .Q2H2M ONE Stop: 11/15/17 02:26 Last Admin: 11/15/17 01:02 Dose: 500 mls/hr eMAR Start Stop Document 11/15/17 01:02 SS (Rec: 11/15/17 01:02 SS [id number]) Intravenous Solution Start Date 11/15/17 Start Time 01:02 End Date 11/15/17 End time 03:04 Total Infusion Time 122 Magnesium Sulfate 2 gm/ Sodium (Chloride) 104 mls @ 102 mls/hr IVPB ONCE ONE Stop: 11/15/17 01:28 Last Admin: 11/15/17 01:18 Dose: 102 mls/hr eMAR Start Stop Document 11/15/17 01:18 SS (Rec: 11/15/17 01:18 SS [id number]) Intravenous Solution Start Date 11/15/17 Start Time 01:18 End Date 11/15/17 End time 02:20 Total Infusion Time 62 Sodium Chloride (Sodium Chloride 0.9%) 1,000 mls @ 999 mls/hr IV .Q1H1M STA Stop: 11/15/17 02:55 Last Admin: 11/15/17 02:52 Dose: 999 mls/hr eMAR Start Stop Document 11/15/17 02:52 LAC (Rec: 11/15/17 02:52 LAC [id number]) Intravenous Solution Start Date 11/15/17 Start Time 02:30 End Date 11/15/17 End time 03:30 Total Infusion Time 60 Lorazepam (Ativan) 1 mg IVP ONCE ONE Stop: 11/15/17 00:24 Last Admin: 11/15/17 00:49 Dose: 1 mg IVP Administration Document 11/15/17 00:49 SS (Rec: 11/15/17 00:49 SS [id number]) Charges for Administration # of IVP Administrations 1 Lorazepam (Ativan) 1 mg IVP ONCE ONE PRN Reason: Protocol Stop: 11/15/17 00:30 Last Admin: 11/15/17 00:49 Dose: 1 mg IVP Administration Document 11/15/17 00:49 SS (Rec: 11/15/17 00:49 SS [id number]) Charges for Administration # of IVP Administrations 1 Lorazepam (Ativan) 4 mg IVP ONCE ONE PRN Reason: Protocol Stop: 11/15/17 00:38 Last Admin: 11/15/17 00:49 Dose: 4 mg IVP Administration Document 11/15/17 00:49 SS (Rec: 11/15/17 00:49 [id number] Charges for Administration # of IVP Administrations 1 Thiamine HCl (Vitamin B1 Inj) 100 mg IM STAT STA Stop: 11/15/17 01:56 Disposition/Present on Arrival - Present on Arrival Any Indicators Present on Arrival: No History of DVT/PE: No History of Uncontrolled Diabetes: No Urinary Catheter: No History of Decub. Ulcer: No History Surgical Site Infection Following: None - Disposition Have Diagnosis and Disposition been Completed?: Yes Disposition Time: 02:00 Patient Plan: Admission - Disposition Diagnosis: Alcohol withdrawal, Alcohol abuse, Alcoholic ketoacidosis Disposition: HOSPITALIZED Patient Problems: Current Active Problems Problem Status Onset Alcohol abuse Acute Alcohol withdrawal Acute Alcoholic ketoacidosis Acute Condition: CRITICAL
[2017-11-15] MEDS: Folic Acid 1 MG, Thiamine 100 MG, Multivitamin (MVI) 10 ML in Dextrose 5% In Water 1,00... IV SCH (02:50)
[2017-11-15] MEDS ORDERED: Dexmedetomidine HCl 4mcg/ml 400 MCG/100 ML BOTTLE IV PRN (07:27)
--- NOTE | 2017-11-15 08:33 | RAD ---
PROCEDURE: CHEST RADIOGRAPH, 1 VIEW HISTORY: etoh withdrawal COMPARISON: None available. FINDINGS: LUNGS: Clear. PLEURA: No pneumothorax or pleural fluid seen. CARDIOVASCULAR: Normal. OSSEOUS STRUCTURES: No significant abnormalities. VISUALIZED UPPER ABDOMEN: Normal. OTHER FINDINGS: None. IMPRESSION: No active disease.
--- NOTE | 2017-11-15 09:12 | CON ---
DATE: 11/15/2017 HISTORY OF PRESENT ILLNESS: This is 27-year-old gentleman with history of alcohol abuse, cocaine, amphetamine abuse who presented with agitation, jittering, trembling, hallucinations and apparent alcohol withdrawal. The patient stated that he was lying in the bed and did not feel well. He also said that his last drink was early yesterday morning. The patient reports admittedly that he was trying to get himself into detox program; however, has been unsuccessful. He was complaining on feeling very anxious and feeling very agitated. No fever, no chills, no sweats. No nausea, no vomiting, no diarrhea or constipation. FAMILY HISTORY: Noncontributory. SOCIAL HISTORY: An active alcohol user, amphetamine, cocaine abuser, heavy smoker of more than 10 cigarettes a day. ALLERGIES: NKDA. MEDICATIONS: No known home medications. REVIEW OF SYSTEMS: Reveals 12-organ system other than mentioned in history of present illness is negative. PAST MEDICAL HISTORY: None. PHYSICAL EXAMINATION: VITAL SIGNS: Heart rate 86, blood pressure 133/76, respiratory rate 19, blood pressure 146/80, oxygen saturation 98% on room air. ENT: Head and neck atraumatic. LUNGS: Clear to auscultation bilaterally. HEART: Regular rate and rhythm. S1, S2 normal. ABDOMEN: Soft, nontender, nondistended. MUSCULOSKELETAL: No C/C/E. NEUROLOGIC: The patient moves all extremities spontaneously. SKIN: Color moist. PSYCH: The patient is somnolent (and he is on Ativan p.r.n.); however, easily arousable. DIAGNOSTIC DATA: Chest x-ray, no active pulmonary disease. LABORATORY DATA: WBC 7, hemoglobin 16.1, platelet count 164. Sodium 142, potassium 3.3, chloride 99, carbon dioxide 20, BUN 8, creatinine 0.8, glucose 135, AST 279, ALT 155. Alcohol level 118, total bilirubin 0.8, albumin 5.4. MEDICATIONS: Banana bag, Ativan p.r.n., Zofran p.r.n., Protonix, potassium supplementation, thiamine. ASSESSMENT: This is 27-year-old gentleman who presented with alcohol withdrawal/delirium tremens. He is on Ativan p.r.n. Precedex drip will be started. Nonmedicamentose measures will be instituted including optimization of his circadian and sleep pattern. Frequent reorientation exposing him to as much light as possible during the morning hours and daytime and minimizing his interruption during the sleep and night hours. I would continue maintaining euvolemia, euglycemia, normothermia and oxygen saturation more than 90%. We will continue with deep venous thrombosis and gastrointestinal prophylaxis. ccm time 40 min Kodak Ng MD MTDPhilip
--- NOTE | 2017-11-15 12:03 | CARD ---
APPROVED REPORT EKG Measurement Heart [id number] <Conclusion> Normal sinus rhythm Right bundle branch block Abnormal ECG
[2017-11-16] MEDS: Folic Acid 1 MG, Thiamine 100 MG, Multivitamin (MVI) 10 ML in Dextrose 5% In Water 1,00... IV SCH ×2 (03:00→12:02)
--- NOTE | 2017-11-16 07:18 | CP.PCM.PN ---
<Jt Valverde - Last Filed: 11/16/17 12:34> Subjective - Date & Time of Evaluation Date of Evaluation: 11/16/17 Time of Evaluation: 09:35 - Subjective Subjective: Subjective: Patient seen and examined at bedside. Resting comfortably in bed. No acute overnight events. Patient mental status has significantly improved relative to baseline. Offers no new complaints at this time. Denies fever, chills, chest pain, shortness of breath, abdominal pain, nausea, vomiting, diarrhea, constipation, and urinary symptoms. Physical Examination: - Constitutional Appears: No Acute Distress - Head Exam Head Exam: ATRAUMATIC, NORMAL INSPECTION, NORMOCEPHALIC - Eye Exam Eye Exam: Normal appearance, PERRL - ENT Exam ENT Exam: Mucous Membranes Moist - Respiratory Exam Respiratory Exam: Clear to Auscultation Bilateral, NORMAL BREATHING PATTERN. absent: Rales, Rhonchi, Wheezes - Cardiovascular Exam Cardiovascular Exam: REGULAR RHYTHM, +S1, +S2. absent: Gallop, Rubs, Systolic Murmur - GI/Abdominal Exam GI & Abdominal Exam: Normal Bowel Sounds. absent: Tenderness - Extremities Exam Extremities exam: Positive for: normal inspection. Negative for: calf tenderness, pedal edema - Neurological Exam Neurological exam: Alert, CN II-XII Intact, Oriented x3, tremors noted in bilateral UE - Skin Skin Exam: Dry, Warm Assessment and Plan: Patient is a 27 year old male with a past medical history including alcohol and substance abuse who was admitted for evaluation and treatment of altered mental status secondary to alcohol withdrawal. Originally admitted to ICU for potential requirement of precedex drip. Drip was not utilized. Patient transferred to med/surg. Alcohol withdrawal - CIWA protocol - seizure precaution - aspiration precaution - Ativan 2 mg q2 prn - PO Thiamine, folic acid, and multivitamin - zofran prn nausea - UDS pending - Neuro check q4 Elevated LFTs - secondary to ETOH abuse - downtrending - continue to monitor closely via CMP Thrombocytopenia - likely dilutional - will change protonix to famotidine - will change subq heparin to lovenox - monitor closely via CBC Hypokalemia - repleted - magnesium ordered and pending - will monitor closely via CMP Patient seen, case discussed with, and plan approved by attending physician, Dr. Zendejas. Objective - Vital Signs/Intake and Output Vital Signs (last 24 hours): Temp Pulse Resp BP Pulse Ox 98.2 F 92 H 47 H 115/57 L 98 11/16/17 04:00 11/16/17 05:04 11/16/17 05:04 11/16/17 05:00 11/16/17 04:40 - Medications Medications: Current Medications Folic Acid 1 mg/ Thiamine HCl 100 mg/ Multivitamins/Vitamin C 10 ml/ Dextrose 1 ,011.2 mls @ 100 mls/hr IV .Q10H7M [facility] Last Admin: 11/16/17 03:00 Dose: 100 mls/hr Dexmedetomidine HCl (Precedex 4 Mcg/Ml (100 Ml)) 400 mcg in 100 mls @ 3.869 mls /hr IV .Q24H PRN; Protocol; 0.2 MCG/KG/HR PRN Reason: Agitation Lorazepam (Ativan) 2 mg IVP Q2H PRN; Protocol PRN Reason: Anxiety Last Admin: 11/16/17 05:03 Dose: 2 mg Ondansetron HCl (Zofran Inj) 4 mg IVP Q6H PRN PRN Reason: Nausea/Vomiting Last Admin: 11/15/17 06:37 Dose: 4 mg Pantoprazole Sodium (Protonix Inj) 40 mg IVP DAILY [facility] Last Admin: 11/15/17 09:33 Dose: 40 mg <Kip Zendejas - Last Filed: 11/16/17 16:05> Objective - Vital Signs/Intake and Output Vital Signs (last 24 hours): Temp Pulse Resp BP Pulse Ox 98.4 F 72 29 H 135/78 97 11/16/17 09:00 11/16/17 10:30 11/16/17 10:30 11/16/17 09:01 11/16/17 10:30 Intake and Output: 11/16/17 11/16/17 06:59 18:59 Intake Total 1200 Output Total 400 Balance 800 - Medications Medications: Current Medications Enoxaparin Sodium (Lovenox) 40 mg SC DAILY [facility] PRN Reason: Protocol Famotidine (Pepcid) 20 mg IVP DAILY [facility] Folic Acid (Folic Acid) 1 mg PO DAILY [facility] Last Admin: 11/16/17 12:51 Dose: 1 mg Lorazepam (Ativan) 2 mg IVP Q2H PRN; Protocol PRN Reason: Anxiety Last Admin: 11/16/17 13:38 Dose: 2 mg Lorazepam (Ativan) 2 mg PO Q6 [facility] PRN Reason: Protocol Multivitamins (Thera Tab) 1 tab PO 0800 [facility] Ondansetron HCl (Zofran Inj) 4 mg IVP Q6H PRN PRN Reason: Nausea/Vomiting Last Admin: 11/16/17 08:27 Dose: 4 mg Thiamine HCl (Vitamin B1 Tab) 100 mg PO DAILY [facility] Last Admin: 11/16/17 12:51 Dose: 100 mg - Labs Labs: 11/16/17 06:30 11/16/17 06:30 Attending/Attestation - Attestation I have personally seen and examined this patient.: Yes I have fully participated in the care of the patient.: Yes I have reviewed all pertinent clinical information, including history, physical exam and plan: Yes Notes (Text): 11/16/17 16:02 Patient was seen and examined with biomedical scientist. Agreed with resident assessment and plan. 27 yrs old was admitted with alcohol withdrawal.Alcohol withdrawal are improving , off Precedex drip. LFT are coming down. The issue of ongoing alcohol and drug abuse was discussed in detail with him. Management plan was discussed in detail with patient Education was provided.
[2017-11-16 07:21] LABS: EOS # 0.2 (0.0-0.7); EOS % 2.2 % (1.5-5.0); HEMOGLOBIN 14.3 g/dL (14.0-18.0); LYMPH # 1.5 (1.2-3.4); MONO # 0.5 (0.1-0.6); RED CELL DISTRIBUTION WIDTH 12.9 % (11.5-14.5)
[2017-11-16 08:09] LABS: ALB/GLOB RATIO 1.4 (1.1-1.8); ALBUMIN 4.6 g/dL (3.0-4.8); ALT/SGPT 136 U/L (7-56); AST/SGOT 211 U/L (17-59); BLOOD UREA NITROGEN 7 mg/dL (7-21); CALCIUM 9.4 mg/dL (8.4-10.5); GFR AFRICAN-AMERICAN > 60; GFR NON-AFRICAN AMERICAN > 60
[2017-11-16 08:17] LABS: BASO # 0.06 K/mm3 (0.0-2.0); BASO % 0.8 % (0.0-3.0); GRAN # 5.02 (1.4-6.5); MEAN CORPUSCULAR HEMOGLOBIN 34.2 pg (25.0-35.0); MEAN CORPUSCULAR HGB CONC 33.4 g/dl (31.0-37.0); MEAN PLATELET VOLUME 11.3 fl (7.0-11.0); RBC 4.18 10^6/uL (3.5-6.1); WHITE BLOOD COUNT 7.3 10^3/ul (4.5-11.0)
[2017-11-16 08:19] LABS: MEAN CELL VOLUME 102.4 fl (80.0-105.0)
--- NOTE | 2017-11-16 13:47 | CP.CCUPN ---
CCU Objective - Vital Signs / Intake & Output Vital Signs (Last 4 hours): Vital Signs Pulse Resp Pulse Ox 11/16/17 10:30 72 29 H 97 11/16/17 10:20 74 18 94 L 11/16/17 10:10 67 27 H 96 11/16/17 10:09 96 H 11/16/17 10:06 83 22 11/16/17 10:05 73 29 H 11/16/17 10:04 88 30 H 11/16/17 10:00 75 11/16/17 09:50 80 14 93 L 11/16/17 09:40 76 100 Intake and Output (Last 8hrs): Intake & Output 11/15/17 11/16/17 11/16/17 22:59 06:59 14:59 Intake Total 1920 1200 Output Total 3000 400 Balance -1080 800 Intake: IV 1200 Left Forearm 1200 Oral 0 Other 1920 Output: Urine/Stool Mix 3000 Emesis 400 Other: # Bowel Movements 2 - Physical Exam Head: Positive for: Atraumatic Mouth: Positive for: Moist Mucous Membranes Nose (External): Positive for: Atraumatic Neck: Positive for: Normal Range of Motion Respiratory/Chest: Positive for: Clear to Auscultation, Good Air Exchange, Tachypneic. Negative for: Respiratory Distress, Accessory Muscle Use Cardiovascular: Positive for: Tachycardic. Negative for: Murmurs Abdomen: Negative for: Tenderness, Distention, Rebound, Guarding Back: Positive for: Normal Inspection Upper Extremity: Positive for: Other (+ tremor) Lower Extremity: Positive for: Other (+ tremor) Neurological: Positive for: GCS=15 Skin: Positive for: Warm, Dry Psychiatric: Positive for: Alert, Oriented x 3, Anxious, Agitated - Medications Active Medications: Active Medications Generic Name Dose Route Start Last Admin Trade Name Freq PRN Reason Stop Dose Admin Enoxaparin Sodium 40 mg 11/17/17 10:00 Lovenox SC DAILY [facility] Protocol Famotidine 20 mg 11/17/17 10:00 Pepcid IVP DAILY [facility] Folic Acid 1 mg 11/16/17 12:45 11/16/17 12:51 Folic Acid PO 1 mg DAILY [facility] Administration Lorazepam 2 mg 11/15/17 06:26 11/16/17 11:30 Ativan IVP 2 mg Q2H PRN Administration Anxiety Protocol Multivitamins 1 tab 11/17/17 08:00 Thera Tab PO 0800 [facility] Ondansetron HCl 4 mg 11/15/17 03:05 11/16/17 08:27 Zofran Inj IVP 4 mg Q6H PRN Administration Nausea/Vomiting Thiamine HCl 100 mg 11/16/17 12:45 11/16/17 12:51 Vitamin B1 Tab PO 100 mg DAILY [facility] Administration - Patient Studies Lab Studies: Microbiology Studies 11/15/17 04:15 MRSA Culture (Admit) - Final Nose MRSA NOT DETECTED Lab Studies 11/16/17 11/16/17 11/16/17 Range/Units 12:51 06:30 06:30 WBC 7.3 (4.5-11.0) 10^3/ul RBC 4.18 (3.5-6.1) 10^6/uL Hgb 14.3 (14.0-18.0) g/dL Hct 42.8 (42.0-52.0) % MCV 102.4 D (80.0-105.0) fl MCH 34.2 (25.0-35.0) pg MCHC 33.4 (31.0-37.0) g/dl RDW 12.9 (11.5-14.5) % Plt Count 118 L (120.0-450.0) 10^3/uL MPV 11.3 H (7.0-11.0) fl Gran % 69.0 H (50.0-68.0) % Lymph % (Auto) 21.0 L (22.0-35.0) % Stokes % (Auto) 7.0 H (1.0-6.0) % Eos % (Auto) 2.2 (1.5-5.0) % Baso % (Auto) 0.8 (0.0-3.0) % Gran # 5.02 (1.4-6.5) Lymph # 1.5 (1.2-3.4) Stokes # 0.5 (0.1-0.6) Eos # 0.2 (0.0-0.7) Baso # 0.06 (0.0-2.0) K/mm3 Sodium 137 (132-148) mmol/L Potassium 3.5 L (3.6-5.0) mmol/L Chloride 102 (98-107) mmol/L Carbon Dioxide 23 (21-33) mmol/L Anion Gap 16 (10-20) BUN 7 (7-21) mg/dL Creatinine 0.7 L (0.8-1.5) mg/dl Est GFR ( Amer) > 60 Est GFR (Non-Af Amer) > 60 Random Glucose 99 (70-110) mg/dL Calcium 9.4 (8.4-10.5) mg/dL Magnesium 2.1 (1.7-2.2) mg/dL Total Bilirubin 1.2 (0.2-1.3) mg/dL AST 211 H D (17-59) U/L ALT 136 H (7-56) U/L Alkaline Phosphatase 82 (38-126) U/L Total Protein 7.7 (5.8-8.3) g/dL Albumin 4.6 (3.0-4.8) g/dL Globulin 3.2 gm/dL Albumin/Globulin Ratio 1.4 (1.1-1.8) Laboratory Results - last 24 hr 11/16/17 11/16/17 11/16/17 06:30 06:30 12:51 WBC 7.3 RBC 4.18 Hgb 14.3 Hct 42.8 MCV 102.4 D MCH 34.2 MCHC 33.4 RDW 12.9 Plt Count 118 L MPV 11.3 H Gran % 69.0 H Lymph % (Auto) 21.0 L Stokes % (Auto) 7.0 H Eos % (Auto) 2.2 Baso % (Auto) 0.8 Gran # 5.02 Lymph # 1.5 Stokes # 0.5 Eos # 0.2 Baso # 0.06 Sodium 137 Potassium 3.5 L Chloride 102 Carbon Dioxide 23 Anion Gap 16 BUN 7 Creatinine 0.7 L Est GFR ( Amer) > 60 Est GFR (Non-Af Amer) > 60 Random Glucose 99 Calcium 9.4 Magnesium 2.1 Total Bilirubin 1.2 AST 211 H D ALT 136 H Alkaline Phosphatase 82 Total Protein 7.7 Albumin 4.6 Globulin 3.2 Albumin/Globulin Ratio 1.4 Fingerstick Blood Sugar Results: 122 Critical Care Progress Note - Nutrition Nutrition: Nutrition Category Date Time Status Regular Diet [DIET] Diets 11/16/17 Breakfast Ordered
--- NOTE | 2017-11-16 14:12 | CP.PCM.PN ---
Subjective - Date & Time of Evaluation Date of Evaluation: 11/16/17 Time of Evaluation: 08:00 - Subjective Subjective: Pt seen and examined, reports to be feeling significantly better. Objective - Vital Signs/Intake and Output Vital Signs (last 24 hours): Temp Pulse Resp BP Pulse Ox 98.4 F 72 29 H 135/78 97 11/16/17 09:00 11/16/17 10:30 11/16/17 10:30 11/16/17 09:01 11/16/17 10:30 Intake and Output: 11/16/17 11/16/17 06:59 18:59 Intake Total 1200 Output Total 400 Balance 800 - Medications Medications: Current Medications Enoxaparin Sodium (Lovenox) 40 mg SC DAILY [facility] PRN Reason: Protocol Famotidine (Pepcid) 20 mg IVP DAILY [facility] Folic Acid (Folic Acid) 1 mg PO DAILY [facility] Last Admin: 11/16/17 12:51 Dose: 1 mg Lorazepam (Ativan) 2 mg IVP Q2H PRN; Protocol PRN Reason: Anxiety Last Admin: 11/16/17 13:38 Dose: 2 mg Lorazepam (Ativan) 2 mg PO Q6 [facility] PRN Reason: Protocol Multivitamins (Thera Tab) 1 tab PO 0800 [facility] Ondansetron HCl (Zofran Inj) 4 mg IVP Q6H PRN PRN Reason: Nausea/Vomiting Last Admin: 11/16/17 08:27 Dose: 4 mg Thiamine HCl (Vitamin B1 Tab) 100 mg PO DAILY [facility] Last Admin: 11/16/17 12:51 Dose: 100 mg - Labs Labs: 11/16/17 06:30 11/16/17 06:30 - Constitutional Appears: Well, Non-toxic, No Acute Distress - Eye Exam Eye Exam: Normal appearance - ENT Exam ENT Exam: Mucous Membranes Moist - Respiratory Exam Respiratory Exam: Clear to Ausculation Bilateral, NORMAL BREATHING PATTERN - Cardiovascular Exam Cardiovascular Exam: REGULAR RHYTHM, +S1, +S2 - GI/Abdominal Exam GI & Abdominal Exam: Soft, Normal Bowel Sounds - Extremities Exam Extremities Exam: Normal Inspection Assessment and Plan - Assessment and Plan (Free Text) Assessment: 27yo male with PMHx of EtOH, polysubstance abuse a/w etoh withdrawal EtOH withdrawal Polysubstance Abuse - currently afebrile, HD stable, comfortable OFF precedex drip, HR 70s Recommend: - supp o2 as needed - follow up cultures - IV hydration - CIWA protocol - Ativan PRN - MVT, Thiamine, Folic Acid - GI ppx - DVT ppx - FS control - Stable, transfer to regular floor
[2017-11-17 07:18] LABS: BASO # 0.07 K/mm3 (0.0-2.0); BASO % 0.9 % (0.0-3.0); EOS # 0.2 (0.0-0.7); EOS % 2.4 % (1.5-5.0); GRAN # 5.3 (1.4-6.5); GRAN % 68.4 % (50.0-68.0); HEMOGLOBIN 14.6 g/dL (14.0-18.0); LYMPH # 1.6 (1.2-3.4); LYMPH % 20.7 % (22.0-35.0); MEAN CELL VOLUME 102.8 fl (80.0-105.0); MEAN CORPUSCULAR HEMOGLOBIN 33.5 pg (25.0-35.0); MEAN CORPUSCULAR HGB CONC 32.6 g/dl (31.0-37.0); MEAN PLATELET VOLUME 11.7 fl (7.0-11.0); MONO # 0.6 (0.1-0.6); MONO % 7.6 % (1.0-6.0); RBC 4.36 10^6/uL (3.5-6.1); RED CELL DISTRIBUTION WIDTH 12.7 % (11.5-14.5); WHITE BLOOD COUNT 7.8 10^3/ul (4.5-11.0)
[2017-11-17 07:46] LABS: ALB/GLOB RATIO 1.4 (1.1-1.8); ALBUMIN 4.6 g/dL (3.0-4.8); ALT/SGPT 197 U/L (7-56); AST/SGOT 377 U/L (17-59); BLOOD UREA NITROGEN 10 mg/dL (7-21); CALCIUM 9.9 mg/dL (8.4-10.5); GFR AFRICAN-AMERICAN > 60; GFR NON-AFRICAN AMERICAN > 60
[2017-11-17] MEDS: Multivitamin Therapeutic Tab PO SCH (09:32)
[2017-11-17] MEDS: Enoxaparin 40 mg Syringe SC SCH (09:32)
--- NOTE | 2017-11-17 10:21 | CP.PCM.PN ---
<Jt Valverde - Last Filed: 11/17/17 10:13> Subjective - Date & Time of Evaluation Date of Evaluation: 11/17/17 Time of Evaluation: 09:30 - Subjective Subjective: Subjective: Patient seen and examined at bedside. Resting comfortably in bed. No acute overnight events. Patient communicating clearly. States tremors have improved compared to yesterday. Offers no new complaints at this time. Denies fever, chills, chest pain, shortness of breath, abdominal pain, nausea, vomiting, diarrhea, constipation, and urinary symptoms. Physical Examination: - Constitutional Appears: No Acute Distress - Head Exam Head Exam: ATRAUMATIC, NORMAL INSPECTION, NORMOCEPHALIC - Eye Exam Eye Exam: Normal appearance, PERRL - ENT Exam ENT Exam: Mucous Membranes Moist - Respiratory Exam Respiratory Exam: Clear to Auscultation Bilateral, NORMAL BREATHING PATTERN. absent: Rales, Rhonchi, Wheezes - Cardiovascular Exam Cardiovascular Exam: REGULAR RHYTHM, +S1, +S2. absent: Gallop, Rubs, Systolic Murmur - GI/Abdominal Exam GI & Abdominal Exam: Normal Bowel Sounds. absent: Tenderness - Extremities Exam Extremities exam: Positive for: normal inspection. Negative for: calf tenderness, pedal edema - Neurological Exam Neurological exam: Alert, CN II-XII Intact, Oriented x3, tremors noted in bilateral UE - Skin Skin Exam: Dry, Warm Assessment and Plan: Patient is a 27 year old male with a past medical history including alcohol and substance abuse who was admitted for evaluation and treatment of altered mental status secondary to alcohol withdrawal. Originally admitted to ICU for potential requirement of precedex drip. Drip was not utilized. Patient transferred to med/surg. Alcohol withdrawal - CIWA protocol - seizure precaution - aspiration precaution - scheduled ativan to 1mg PO Q6h - c/w Ativan 2 mg q2 prn - PO Thiamine, folic acid, and multivitamin - zofran prn nausea - UDS pending - Neuro check q4 Elevated LFTs - reviewed, trended, and appreciated - likely 2/2 ETOH - rule out hepatitis and HIV- ordered and pending - abdominal ultrasound ordered and pending Thrombocytopenia - resolved Hypokalemia - resolved Patient seen, case discussed with, and plan approved by attending physician, Dr. Zendejas. Objective - Vital Signs/Intake and Output Vital Signs (last 24 hours): Temp Pulse Resp BP Pulse Ox 98.3 F 68 24 135/78 97 11/16/17 18:00 11/17/17 07:42 11/17/17 07:42 11/16/17 09:01 11/16/17 10:30 - Medications Medications: Current Medications Enoxaparin Sodium (Lovenox) 40 mg SC DAILY [facility] PRN Reason: Protocol Last Admin: 11/17/17 09:32 Dose: 40 mg Famotidine (Pepcid) 20 mg IVP DAILY [facility] Last Admin: 11/17/17 09:32 Dose: 20 mg Folic Acid (Folic Acid) 1 mg PO DAILY [facility] Last Admin: 11/17/17 09:32 Dose: 1 mg Lorazepam (Ativan) 2 mg IVP Q2H PRN; Protocol PRN Reason: Anxiety Last Admin: 11/17/17 09:35 Dose: 2 mg Lorazepam (Ativan) 2 mg PO Q6 [facility] PRN Reason: Protocol Last Admin: 11/17/17 05:10 Dose: 2 mg Multivitamins (Thera Tab) 1 tab PO 0800 [facility] Last Admin: 11/17/17 09:32 Dose: 1 tab Ondansetron HCl (Zofran Inj) 4 mg IVP Q6H PRN PRN Reason: Nausea/Vomiting Last Admin: 11/16/17 08:27 Dose: 4 mg Thiamine HCl (Vitamin B1 Tab) 100 mg PO DAILY [facility] Last Admin: 11/17/17 09:32 Dose: 100 mg - Labs Labs: 11/17/17 06:30 11/17/17 06:30 <Kip Zendejas - Last Filed: 11/17/17 16:12> Objective - Vital Signs/Intake and Output Vital Signs (last 24 hours): Temp Pulse Resp BP Pulse Ox 98.1 F 68 15 138/87 95 11/17/17 08:00 11/17/17 15:49 11/17/17 15:49 11/17/17 12:00 11/17/17 12:00 Intake and Output: 11/17/17 11/17/17 06:59 18:59 Intake Total 860 Output Total 250 Balance 610 - Medications Medications: Current Medications Enoxaparin Sodium (Lovenox) 40 mg SC DAILY [facility] PRN Reason: Protocol Last Admin: 11/17/17 09:32 Dose: 40 mg Famotidine (Pepcid) 20 mg PO DAILY [facility] Folic Acid (Folic Acid) 1 mg PO DAILY [facility] Last Admin: 11/17/17 09:32 Dose: 1 mg Lorazepam (Ativan) 2 mg IVP Q2H PRN; Protocol PRN Reason: Anxiety Last Admin: 11/17/17 15:52 Dose: 2 mg Lorazepam (Ativan) 1 mg PO Q6 [facility] PRN Reason: Protocol Last Admin: 11/17/17 12:15 Dose: 1 mg Multivitamins (Thera Tab) 1 tab PO 0800 [facility] Last Admin: 11/17/17 09:32 Dose: 1 tab Ondansetron HCl (Zofran Inj) 4 mg IVP Q6H PRN PRN Reason: Nausea/Vomiting Last Admin: 11/16/17 08:27 Dose: 4 mg Thiamine HCl (Vitamin B1 Tab) 100 mg PO DAILY [facility] Last Admin: 11/17/17 09:32 Dose: 100 mg - Labs Labs: 11/17/17 06:30 11/17/17 06:30 Attending/Attestation - Attestation I have personally seen and examined this patient.: Yes I have fully participated in the care of the patient.: Yes I have reviewed all pertinent clinical information, including history, physical exam and plan: Yes Notes (Text): 11/17/17 16:10 Patient was seen and examined with medical review coordinator. Agreed with resident assessment and plan. 27 yrs old male with alcohol withdrawal and abnormal LFT. Alcohol withdrawal are improving.LFT are worsen today, we will get hepatitic profile due to H/O drug abuse and will also get right upper quadrant USG. Avoid hepato toxic medications. Management plan was discussed in detail with patient Education was provided.
[2017-11-17 16:49] LABS: HEPATITIS B SURFACE AG NEGATIVE (NEGATIVE)
[2017-11-17 16:55] LABS: HEPATITIS A IGM NEGATIVE (NEGATIVE); HEPATITIS B CORE AB Negative (NEGATIVE)
[2017-11-17 17:06] LABS: HEPATITIS C ANTIBODY Negative (NEGATIVE)
--- NOTE | 2017-11-17 19:02 | US ---
HISTORY: abnormal LFT COMPARISON: CT abdomen and pelvis without IV contrast performed 10/25/14 TECHNIQUE: Sonographic evaluation of the abdomen. FINDINGS: Examination limited by bowel gas. LIVER: Measures approximately 16.6 cm. Echogenic liver may be seen in setting of hepatic parenchymal disease or fatty infiltration. No focal hepatic mass identified. The main portal vein appears patent with normal directional flow. No intrahepatic bile duct dilatation. GALLBLADDER: No gallstones. No gallbladder wall thickening. Negative sonographic Knight's sign as assessed by the mold designer. COMMON BILE DUCT: Measures 5 mm. PANCREAS: Not well visualized. RIGHT KIDNEY: Measures 11.3 x 5.7 x 5.7 cm. No obstructing calculus or hydronephrosis identified. LEFT KIDNEY: Measures 11.2 x 5.6 x 5.4 cm. No obstructing calculus or hydronephrosis identified. SPLEEN: Measures approximately 10.1 cm. AORTA: Not well-visualized. IVC: Not well-visualized. OTHER FINDINGS: None. IMPRESSION: Limited study. Echogenic liver may be seen in setting of hepatic parenchymal disease or fatty infiltration.
[2017-11-18 07:23] LABS: BASO # 0.08 K/mm3 (0.0-2.0); EOS # 0.2 (0.0-0.7); EOS % 1.9 % (1.5-5.0); GRAN # 5.35 (1.4-6.5); GRAN % 65.1 % (50.0-68.0); HEMOGLOBIN 15.4 g/dL (14.0-18.0); LYMPH # 1.9 (1.2-3.4); LYMPH % 22.5 % (22.0-35.0); MEAN CELL VOLUME 102.3 fl (80.0-105.0); MEAN CORPUSCULAR HGB CONC 34.2 g/dl (31.0-37.0); MEAN PLATELET VOLUME 11.6 fl (7.0-11.0); MONO # 0.8 (0.1-0.6); MONO % 9.5 % (1.0-6.0); RBC 4.4 10^6/uL (3.5-6.1); RED CELL DISTRIBUTION WIDTH 12.5 % (11.5-14.5); WHITE BLOOD COUNT 8.2 10^3/ul (4.5-11.0)
[2017-11-18 07:56] VITALS: BP 130/80; PULSE 81; RESP 16; TEMP 98; O2SAT 98
[2017-11-18 07:59] LABS: ALB/GLOB RATIO 1.4 (1.1-1.8); ALBUMIN 4.6 g/dL (3.0-4.8); ALT/SGPT 205 U/L (7-56); AST/SGOT 222 U/L (17-59); BLOOD UREA NITROGEN 12 mg/dL (7-21); CALCIUM 9.9 mg/dL (8.4-10.5); GFR AFRICAN-AMERICAN > 60; GFR NON-AFRICAN AMERICAN > 60
--- NOTE | 2017-11-18 08:40 | CON ---
DATE: 11/17/2017 HISTORY OF PRESENT ILLNESS: He has been seen today for consultation. The patient is a 27-year-old male seen at bedside in the ICU. The patient was admitted on 11/15/2017 for nausea and vomiting. Evidently, he was trying to cut down on his alcohol use and he started to have detox symptoms and ended up coming to the emergency room. He drinks by his own report about half a gallon of Vodka daily. He indicates he is not using drugs anymore at this time. This patient is known to me. I have met him on a previous admission. He has been multiple times in the emergency room for alcohol detox. He indicates that he had been living with his grandmother. He moved in with a friend and his drinking behavior really took off and this is what made things "worse" and he ended up in the hospital. He has not been working, He is supported by his boyfriend and indicates at this time he is thinking very strongly of moving back with his mother who lives in [place], who would be able to help him modify his behavior as she will not "put up with this" from him. This is in contrast to the last time I saw him when he told me he had no family and no support system. The patient indicates that he does not feel he can live with the way he has been living at this time, and he would like to possibly go on to some sort of a program. He indicates that he feels that he is depressed and would like treatment. He denies ever being previously psychiatrically hospitalized or going to any rehabilitation facility or having been on any psychiatric medication. He indicates that he now wants the support of his family and he would like to go back to school as he can "get his together." PHYSICAL EXAMINATION GENERAL: In terms of his physical appearance, he is not sweaty, he is not shaky. He indicates that physically he is feeling comfortable. VITAL SIGNS: His current vital signs include pulse rate of 68 and a respiratory rate of 14. MEDICATIONS: His current medications are Lovenox, Pepcid, folic acid, Ativan 2 mg IV push q.2 hours as needed. His last dose was at 09:35 this morning. He also gets Ativan 1 mg p.o. q.6 hours scheduled. He is on multivitamins, Zofran for nausea, and thiamine. MENTAL STATUS EXAM: The patient is alert and oriented x3. His eye contact is good. His behavior is cooperative. His speech rate and volume are within normal limits. His mood is euthymic. His affect is full. His thoughts are goal directed. He denies being suicidal or homicidal. He denies the presence of hallucinations, delusions, or paranoia. His concentration and focus he indicates are normal. His memory both short and long-term is good. His appetite and his sleep, he reports are normalizing. DIAGNOSTIC IMPRESSION: Alcohol dependence, current withdrawal; personality disorder, depressive disorder, unspecified. PLAN: The patient is medically cleared to go to a medical floor. The patient at this visit is questioning me about rehab or outpatient treatment for his alcoholism. He is wiling to move in with his mother, which will curtail his drinking activities because she will not "put up" with this. This is a complete difference from the last time I saw him when he was adamant that he wanted no treatment and did not want any followup. There may be a secondary gain which is not revealed itself at this point in time. In any case, we will continue to follow, furnish the patient with outpatient referrals that are appropriate for him prior to discharge. Thank you for the consult. Antonieta Rosenberg APN
[2017-11-18] MEDS: Multivitamin Therapeutic Tab PO SCH (11:15)
[2017-11-18] MEDS: Enoxaparin 40 mg Syringe SC SCH (11:15)
--- NOTE | 2017-11-18 11:29 | CP.PCM.DIS ---
<Jt Valverde - Last Filed: 11/18/17 12:38> Provider - Provider Date of Admission: 11/15/17 02:17 Attending physician: Kip Zendejas MD Time Spent in preparation of Discharge (in minutes): 45 Diagnosis - Discharge Diagnosis (1) Alcohol withdrawal Status: Resolved Priority: Medium (2) Elevated liver enzymes Status: Acute Priority: Medium (3) Alcohol abuse Status: Chronic Priority: Medium Hospital Course - Lab Results Lab Results: Micro Results 11/15/17 04:15 Nose MRSA Culture (Admit) - Final MRSA NOT DETECTED Most Recent Lab Values WBC 8.2 10^3/ul (4.5-11.0) 11/18/17 06:45 RBC 4.40 10^6/uL (3.5-6.1) 11/18/17 06:45 Hgb 15.4 g/dL (14.0-18.0) 11/18/17 06:45 Hct 45.0 % (42.0-52.0) 11/18/17 06:45 MCV 102.3 fl (80.0-105.0) 11/18/17 06:45 MCH 35.0 pg (25.0-35.0) 11/18/17 06:45 MCHC 34.2 g/dl (31.0-37.0) 11/18/17 06:45 RDW 12.5 % (11.5-14.5) 11/18/17 06:45 Plt Count 149 10^3/uL (120.0-450.0) 11/18/17 06:45 MPV 11.6 fl (7.0-11.0) H 11/18/17 06:45 Gran % 65.1 % (50.0-68.0) 11/18/17 06:45 Lymph % (Auto) 22.5 % (22.0-35.0) 11/18/17 06:45 [place] % (Auto) 9.5 % (1.0-6.0) H 11/18/17 06:45 Eos % (Auto) 1.9 % (1.5-5.0) 11/18/17 06:45 Baso % (Auto) 1.0 % (0.0-3.0) 11/18/17 06:45 Gran # 5.35 (1.4-6.5) 11/18/17 06:45 Lymph # 1.9 (1.2-3.4) 11/18/17 06:45 [place] # 0.8 (0.1-0.6) H 11/18/17 06:45 Eos # 0.2 (0.0-0.7) 11/18/17 06:45 Baso # 0.08 K/mm3 (0.0-2.0) 11/18/17 06:45 Sodium 139 mmol/L (132-148) 11/18/17 06:45 Potassium 3.6 mmol/L (3.6-5.0) 11/18/17 06:45 Chloride 101 mmol/L (98-107) 11/18/17 06:45 Carbon Dioxide 23 mmol/L (21-33) 11/18/17 06:45 Anion Gap 18 (10-20) 11/18/17 06:45 BUN 12 mg/dL (7-21) 11/18/17 06:45 Creatinine 0.8 mg/dl (0.8-1.5) 11/18/17 06:45 Est GFR ( Amer) > 60 11/18/17 06:45 Est GFR (Non-Af Amer) > 60 11/18/17 06:45 POC Glucose (mg/dL) 122 mg/dL (65-110) H 11/15/17 00:29 Random Glucose 84 mg/dL (70-110) 11/18/17 06:45 Calcium 9.9 mg/dL (8.4-10.5) 11/18/17 06:45 Phosphorus 2.2 mg/dL (2.5-4.5) L 11/15/17 00:31 Magnesium 2.1 mg/dL (1.7-2.2) 11/16/17 12:51 Total Bilirubin 0.9 mg/dL (0.2-1.3) 11/18/17 06:45 AST 222 U/L (17-59) H D 11/18/17 06:45 ALT 205 U/L (7-56) H 11/18/17 06:45 Alkaline Phosphatase 89 U/L (38-126) 11/18/17 06:45 Total Protein 7.9 g/dL (5.8-8.3) 11/18/17 06:45 Albumin 4.6 g/dL (3.0-4.8) 11/18/17 06:45 Globulin 3.3 gm/dL 11/18/17 06:45 Albumin/Globulin Ratio 1.4 (1.1-1.8) 11/18/17 06:45 Amylase 63 U/L (35-125) 11/15/17 00:31 Lipase 96 U/L (23-300) 11/15/17 00:31 Alcohol, Quantitative 180 mg/dL (0-10) H 11/15/17 00:31 Hepatitis A IgM Ab Negative (NEGATIVE) 11/17/17 06:30 Hep Bs Antigen Negative (NEGATIVE) 11/17/17 06:30 Hep B Core IgM Ab Negative (NEGATIVE) 11/17/17 06:30 Hepatitis C Antibody Negative (NEGATIVE) 11/17/17 06:30 - Hospital Course Hospital Course: Patient is a 27 year old male with a past medical history including alcohol and substance abuse who was admitted for evaluation and treatment of altered mental status secondary to alcohol withdrawal. With the use of physical examinations, lab work, and imaging the patient was diagnosed with alcohol withdrawl, alcohol abuse, and elevated liver enzymes. During their hospital stay the patient was seen by critical care team and their recommendations were both appreciated and utilized in the care for this patient. Originally he was admitted to ICU for potential requirement of precedex drip. Drip was not utilized. Patient transferred to med/surg thereafter. During their hospital stay the patient underwent an abdominal ultrasound and chest xray which were reviewed, appreciated, and utilized in the management of the patients clinical course. The ultrasound showed echogenic liver may be seen in setting of hepatic parenchymal disease or fatty infiltration. Patient was treated with intravenous fluids, benzodiazepines, amongst other empiric/therapeutic medications. At this time the patient is medically stable for discharge. Patient understands and appreciates discharge plan. Patient instructed to follow up with primary care physicians and referrals within three to five days from discharge. Furthermore, the patient is instructed to take medications as prescribed and to return to emergency room for evaluation of intractable headache, fever, chills, dizziness , chest pain, shortness of breath, abdominal pain, nausea, vomiting, diarrhea, constipation, and urinary symptoms. This is a brief summary of the patients hospital course. Please see patient chart for full details. Discharge Exam - Head Exam Head Exam: ATRAUMATIC, NORMAL INSPECTION, NORMOCEPHALIC - Additional Findings Additional findings: - Constitutional Appears: No Acute Distress - Head Exam Head Exam: ATRAUMATIC, NORMAL INSPECTION, NORMOCEPHALIC - Eye Exam Eye Exam: Normal appearance, PERRL - ENT Exam ENT Exam: Mucous Membranes Moist - Respiratory Exam Respiratory Exam: Clear to Auscultation Bilateral, NORMAL BREATHING PATTERN. absent: Rales, Rhonchi, Wheezes - Cardiovascular Exam Cardiovascular Exam: REGULAR RHYTHM, +S1, +S2. absent: Gallop, Rubs, Systolic Murmur - GI/Abdominal Exam GI & Abdominal Exam: Normal Bowel Sounds. absent: Tenderness - Extremities Exam Extremities exam: Positive for: normal inspection. Negative for: calf tenderness, pedal edema - Neurological Exam Neurological exam: Alert, CN II-XII Intact, Oriented x3, responds to verbal stimuli, follows commands, moves extremities past midline - Skin Skin Exam: Dry, Warm Discharge Plan - Discharge Medications Prescriptions: Folic Acid 1 mg PO DAILY 14 Days tab Thiamine [Vitamin B1 Tab] 100 mg PO DAILY 14 Days tab - Follow Up Plan Condition: GOOD Disposition: HOME/ ROUTINE Patient education suggested?: Yes Instructions: Cirrhosis (DC), Alcohol Intoxication (GEN), Abuse of Alcohol (DC) , H1N1 Influenza (DC), Fall Prevention (DC) Additional Instructions: Patient Instructions: 1. Take medications as prescribed. 2. Follow up with primary care physician within three to five days from discharge. 3. Return to the emergency room for evaluation of intractable headache, fever, chills, dizziness, chest pain, shortness of breath, abdominal pain, nausea, vomiting, diarrhea, constipation, and urinary symptoms <Kip Zendejas - Last Filed: 11/18/17 16:32> Provider - Provider Date of Admission: 11/15/17 02:17 Attending physician: Kip Zendejas MD Hospital Course - Lab Results Lab Results: Micro Results 11/15/17 04:15 Nose MRSA Culture (Admit) - Final MRSA NOT DETECTED Most Recent Lab Values WBC 8.2 10^3/ul (4.5-11.0) 11/18/17 06:45 RBC 4.40 10^6/uL (3.5-6.1) 11/18/17 06:45 Hgb 15.4 g/dL (14.0-18.0) 11/18/17 06:45 Hct 45.0 % (42.0-52.0) 11/18/17 06:45 MCV 102.3 fl (80.0-105.0) 11/18/17 06:45 MCH 35.0 pg (25.0-35.0) 11/18/17 06:45 MCHC 34.2 g/dl (31.0-37.0) 11/18/17 06:45 RDW 12.5 % (11.5-14.5) 11/18/17 06:45 Plt Count 149 10^3/uL (120.0-450.0) 11/18/17 06:45 MPV 11.6 fl (7.0-11.0) H 11/18/17 06:45 Gran % 65.1 % (50.0-68.0) 11/18/17 06:45 Lymph % (Auto) 22.5 % (22.0-35.0) 11/18/17 06:45 [place] % (Auto) 9.5 % (1.0-6.0) H 11/18/17 06:45 Eos % (Auto) 1.9 % (1.5-5.0) 11/18/17 06:45 Baso % (Auto) 1.0 % (0.0-3.0) 11/18/17 06:45 Gran # 5.35 (1.4-6.5) 11/18/17 06:45 Lymph # 1.9 (1.2-3.4) 11/18/17 06:45 [place] # 0.8 (0.1-0.6) H 11/18/17 06:45 Eos # 0.2 (0.0-0.7) 11/18/17 06:45 Baso # 0.08 K/mm3 (0.0-2.0) 11/18/17 06:45 Sodium 139 mmol/L (132-148) 11/18/17 06:45 Potassium 3.6 mmol/L (3.6-5.0) 11/18/17 06:45 Chloride 101 mmol/L (98-107) 11/18/17 06:45 Carbon Dioxide 23 mmol/L (21-33) 11/18/17 06:45 Anion Gap 18 (10-20) 11/18/17 06:45 BUN 12 mg/dL (7-21) 11/18/17 06:45 Creatinine 0.8 mg/dl (0.8-1.5) 11/18/17 06:45 Est GFR ( Amer) > 60 11/18/17 06:45 Est GFR (Non-Af Amer) > 60 11/18/17 06:45 POC Glucose (mg/dL) 122 mg/dL (65-110) H 11/15/17 00:29 Random Glucose 84 mg/dL (70-110) 11/18/17 06:45 Calcium 9.9 mg/dL (8.4-10.5) 11/18/17 06:45 Phosphorus 2.2 mg/dL (2.5-4.5) L 11/15/17 00:31 Magnesium 2.1 mg/dL (1.7-2.2) 11/16/17 12:51 Total Bilirubin 0.9 mg/dL (0.2-1.3) 11/18/17 06:45 AST 222 U/L (17-59) H D 11/18/17 06:45 ALT 205 U/L (7-56) H 11/18/17 06:45 Alkaline Phosphatase 89 U/L (38-126) 11/18/17 06:45 Total Protein 7.9 g/dL (5.8-8.3) 11/18/17 06:45 Albumin 4.6 g/dL (3.0-4.8) 11/18/17 06:45 Globulin 3.3 gm/dL 11/18/17 06:45 Albumin/Globulin Ratio 1.4 (1.1-1.8) 11/18/17 06:45 Amylase 63 U/L (35-125) 11/15/17 00:31 Lipase 96 U/L (23-300) 11/15/17 00:31 Alcohol, Quantitative 180 mg/dL (0-10) H 11/15/17 00:31 Hepatitis A IgM Ab Negative (NEGATIVE) 11/17/17 06:30 Hep Bs Antigen Negative (NEGATIVE) 11/17/17 06:30 Hep B Core IgM Ab Negative (NEGATIVE) 11/17/17 06:30 Hepatitis C Antibody Negative (NEGATIVE) 11/17/17 06:30 HIV 1&2 Ag/Ab, 4th Gen Nonreactive (Nonreactive) 11/17/17 10:45 Attending/Attestation - Attestation I have personally seen and examined this patient.: Yes I have fully participated in the care of the patient.: Yes I have reviewed all pertinent clinical information, including history, physical exam and plan: Yes Notes (Text): 11/18/17 16:31 Patient was seen and examined with medical facilities section director. Agreed with resident assessment and plan. 27 yrs old male with was admitted alcohol withdrawal and abnormal LFT. Alcohol withdrawal have improved.LFT are coming down.Hepatitis serology is negative. The issue of ongoing alcohol and drug abuse was discussed in detail with patient. Management plan was discussed in detail with patient Education was provided.
--- NOTE | 2017-11-18 13:26 | PN ---
DATE: 11/18/2017 He is being seen today for a followup consultation. PRESENTATION: The patient is seen at bedside. Consult was originally called for the patient's ongoing alcoholism. He came to the Emergency Room after trying to cutdown on his use of alcohol in active withdrawal. He drinks chronically about a half a gallon of vodka a day and has a past history of cocaine and methamphetamine use, which he says is no longer current. The patient was originally in ICU, was stabilized, and is now on the first floor. His current vital signs include a temperature of 98, pulse rate of 81, blood pressure of 130/80, which is a decrease from yesterday, which was 141/81, respiratory rate of 16 with an O2 saturation of 98%. The patient's affect today is bright. He indicates that he has spoken with his social service worker and notes correlate this and that she is given an information about several outpatient and inpatient alcohol treatment sources and he is willing to do whatever he needs to do to stay sober. He indicates that he has been feeling so sick from the drinking and his doctor has informed him that his liver has sustained some damage as a result of his drinking, so the patient at this point is feeling like he wants to make some changes and he is willing to try to work on his alcoholism. He indicates he is not under any legal charges at this time. Most recent liver function tests include AST of 222 and ALT 205. MENTAL STATUS EXAMINATION: The patient is alert and oriented x3. His eye contact is good. His behavior is pleasant and cooperative. Speech rate and volume is within normal limits. His mood is euthymic. His affect is full. His thoughts are goal directed. He denies being suicidal or homicidal. He denies the presence of hallucinations, delusions, or paranoia. His concentration and focus, he indicates are normal at this time. His memory both short and long-term appears adequate. His appetite and his sleep is normalized. DIAGNOSTIC IMPRESSION: Alcohol use disorder, severe, chronic ongoing and alcohol withdrawal. PLAN: Psychiatrically, the patient is stable. He denies being suicidal or homicidal and does not appear to be in any danger of hurting himself or others. He has requested followup treatment for his alcoholism and a social service worker has given him this information. He indicates he plans to follow up either with an IOP or an inpatient program upon discharge. We will sign off psychiatrically on this patient. Case has been discussed with Dr. Orellana. Thank you for the consult. Antonieta Rosenberg APN
== END 2017-11-18 14:35 | disposition home or self-care (01) | DRG 750 ==
LOC: ED 23:56 → ERH 11-15 02:17 → CCU 11-15 04:18 → 5RNO 11-17 16:21
PROVIDERS: ADMIT Internal Medicine; ATTEND Internal Medicine
DX: F10.231 Alcohol dependence with withdrawal delirium (principal); D69.6 Thrombocytopenia, unspecified; F14.10 Cocaine abuse, uncomplicated; E87.2 Acidosis; E87.6 Hypokalemia; F17.210 Nicotine dependence, cigarettes, uncomplicated; Y90.6 Blood alcohol level of 120-199 mg/100 ml; R74.8 Abnormal levels of other serum enzymes

== ENCOUNTER 2017-12-21 02:47 | Inpatient (IN) | payer MEDICAID, OTHER ==
--- NOTE | 2017-12-21 03:24 | ED PDOC ---
Arrival/HPI - General Historian: Patient - History of Present Illness Symptom Onset: Gradual Symptom Course: Unchanged Activities at Onset: Light Context: Home <Luis Enrique Jon - Last Filed: 12/21/17 17:55> <Sixto Mariscal - Last Filed: 12/22/17 11:25> - General Chief Complaint: Psychiatric Evaluation Time Seen by Provider: 12/21/17 03:09 - History of Present Illness Narrative History of Present Illness (Text): 12/21/17 03:24 Chidi Hopper is a 27 year old male, whose past medical history includes alcohol abuse and substance abuse, who presents to the Emergency department brought in by friend for possible early alcohol withdrawal. Patient states he has not been drinking the same quantities of alcohol as he usually does and has been feeling extremely anxious. Patient reports his last alcoholic drink was yesterday and notes periods of agitation.States he has been drinking Nyquil to help calm himself. Patient is requesting alcohol detox. Patient denies any homicidal ideation, chest pain, vomiting, diarrhea, urinary symptoms, back pain, headache , or any other complaints. Patient reports he smoked marijuana yesterday, but denies any other drug use. (Luis Enrique Jon) Past Medical History - Provider Review Nursing Documentation Reviewed: Yes - Past History Past History: No Previous (alcohol dependent) - Infectious Disease Hx of Infectious Diseases: None - Tetanus Immunization Tetanus Immunization: Unknown - Past Medical History Past Medical History: No Previous - Cardiac Hx Cardiac Disorders: No - Pulmonary Hx Respiratory Disorders: No - Neurological Hx Neurological Disorder: No - HEENT Hx HEENT Disorder: No - Renal Hx Renal Disorder: No - Endocrine/Metabolic Hx Endocrine Disorders: No - Hematological/Oncological Hx Blood Disorders: No - Integumentary Hx Dermatological Disorder: No - Musculoskeletal/Rheumatological Hx Musculoskeletal Disorders: No Hx Falls: No - Gastrointestinal Hx Gastrointestinal Disorders: Yes (GASTRITIS,APPENDICITIS) - Genitourinary/Gynecological Hx Genitourinary Disorders: No - Psychiatric Hx Psychophysiologic Disorder: Yes Hx Substance Use: Yes (weed) Other/Comment: alcohol abuse - Past Surgical History Past Surgical History: No Previous - Surgical History Hx Appendectomy: Yes Other/Comment: right arm surgery/ - Anesthesia Hx Anesthesia: Yes Hx Anesthesia Reactions: No Hx Malignant Hyperthermia: No - Suicidal Assessment Feels Threatened In Home Enviroment: No <Luis Enrique Jon - Last Filed: 12/21/17 17:55> Family/Social History - Physician Review Nursing Documentation Reviewed: Yes Family/Social History: Unknown Family HX Smoking Status: Smoker Currrent Status Unknown Hx Alcohol Use: Yes Hx Substance Use: Yes (weed) Hx Substance Use Treatment: No <Luis Enrique Jon - Last Filed: 12/21/17 17:55> Allergies/Home Meds <Luis Enrique Jon - Last Filed: 12/21/17 17:55> <Sixto Mariscal - Last Filed: 12/22/17 11:25> Allergies/Adverse Reactions: Allergies No Known Allergies Allergy (Verified 12/21/17 03:11) Home Medications: Home Meds Medication Instructions Recorded Confirmed Unobtainable 12/21/17 12/21/17 Review of Systems - Physician Review All systems were reviewed & negative as marked: Yes - Review of Systems Constitutional: Other (+shaking). absent: Fevers Eyes: Normal ENT: Normal Respiratory: SOB. absent: Cough Cardiovascular: Normal. absent: Chest Pain Gastrointestinal: Normal. absent: Abdominal Pain, Diarrhea, Nausea, Vomiting Genitourinary Male: Normal. absent: Dysuria, Frequency, Hematuria, Urinary Output Changes Musculoskeletal: Normal. absent: Back Pain, Neck Pain Skin: Normal. absent: Rash Neurological: Normal. absent: Headache, Dizziness Endocrine: Normal Hemo/Lymphatic: Normal Psychiatric: Anxiety <Luis Enrique Jon - Last Filed: 12/21/17 17:55> Physical Exam Vital Signs Reviewed: Yes Temperature: Afebrile Blood Pressure: Normal Pulse: Regular Respiratory Rate: Normal Appearance: Positive for: Well-Appearing, Non-Toxic, Comfortable Pain Distress: None Mental Status: Positive for: Agitated, other (Alert, anxious) - Systems Exam Head: Present: Atraumatic, Normocephalic Pupils: Present: PERRL Extroacular Muscles: Present: EOMI Conjunctiva: Present: Normal Mouth: Present: Moist Mucous Membranes Neck: Present: Normal Range of Motion Respiratory/Chest: Present: Clear to Auscultation, Good Air Exchange. No: Respiratory Distress, Accessory Muscle Use Cardiovascular: Present: Regular Rate and Rhythm, Normal S1, S2. No: Murmurs Abdomen: Present: Normal Bowel Sounds. No: Tenderness, Distention, Peritoneal Signs Upper Extremity: Present: Normal Inspection. No: Cyanosis, Edema Lower Extremity: Present: Normal Inspection. No: Edema Neurological: Present: GCS=15, CN II-XII Intact, Speech Normal, Other (Tremulous ) Skin: Present: Warm, Dry, Normal Color. No: Rashes Psychiatric: Present: Alert, Oriented x 3, Anxious, Agitated <DontrellLuis Enrique - Last Filed: 12/21/17 17:55> Vital Signs Temp Pulse Resp BP Pulse Ox 12/21/17 21:15 98.2 F 84 18 124/76 99 12/21/17 17:50 98 F 80 18 128/78 99 12/21/17 16:50 79 18 119/65 98 12/21/17 15:32 82 18 113/71 99 12/21/17 12:00 80 18 121/78 98 12/21/17 10:04 98.8 F 90 18 116/74 98 12/21/17 08:00 80 18 106/77 98 12/21/17 07:00 84 16 94/69 L 98 12/21/17 05:39 82 18 99/50 L 96 12/21/17 03:29 97.7 F 104 H 18 109/75 98 Medical Decision Making - Lab Interpretations I have reviewed the lab results: Yes - RAD Interpretation Creative Services Writer: ED Physician - EKG Interpretation Interpreted by ED Physician: Yes Type: 12 lead EKG <DontrellLuis Enrique - Last Filed: 12/21/17 17:55> <Sixto Mariscal - Last Filed: 12/22/17 11:25> ED Course and Treatment: 12/21/17 03:24 Impression: 27 year old male brought in for possible early alcohol withdrawal and anxiety. Plan: -- EKG -- Chest X-ray -- Labs, alcohol level, cardiac enzymes -- Banana bag -- Ativan -- Reassess and disposition Prior Visits: Notes and results from previous visits were reviewed. Progress Notes: Reviewed EKG, NSR at 90 bpm. Incomplete RBBB. Non-specific ST/T wave changes. 12/21/17 04:37 Chest X-ray reviewed, shows no acute processes. 12/21/17 05:50 Pt. was seen and evaluated by YEYO Stevens.He d/w the psychiatrist .Arrangements for transfer to [facility] detox unit pending. 12/21/17 07:[address] Mariscal, pending psych bed placement at [facility]. (Luis Enrique Jon) 12/21/17 14:05 Patient is medically cleared for psych admission. 12/21/17 17:17 called to bedside. pt noted by diaphoretic, tremoulous. not stable for transfer needs iv ativan. will be admitted to [facility] for etoh w/d. 12/22/17 11:24 p (Sixto Mariscal) - Lab Interpretations Lab Results: 12/21/17 03:55 12/21/17 03:55 Lab Results 12/21/17 13:00: Urine Color Yellow, Urine Appearance Clear, Urine pH 6.0, Ur Specific [place] 1.010, Urine Protein Negative, Urine Glucose (UA) Negative, Urine Ketones Negative, Urine Blood Negative, Urine Nitrate Negative, Urine Bilirubin Negative, Urine Urobilinogen 0.2, Ur Leukocyte Esterase Negative 12/21/17 03:55: Urine Opiates Screen Negative, Urine Methadone Screen Negative, Ur Barbiturates Screen Negative, Ur Phencyclidine Scrn Negative, Ur Amphetamines Screen Negative, U Benzodiazepines Scrn Negative, U Oth Cocaine Metabols Positive H, U Cannabinoids Screen Positive H 12/21/17 03:55: WBC 9.1, RBC 4.51, Hgb 15.2, Hct 43.6, MCV 96.7 D, MCH 33.7, MCHC 34.9, RDW 12.6, Plt Count 196, MPV 10.5 12/21/17 03:55: Alcohol, Quantitative 227 H 12/21/17 03:55: Sodium 144, Potassium 3.6, Chloride 107, Carbon Dioxide 18 L, Anion Gap 22 H, BUN 18, Creatinine 0.8, Est GFR ( Amer) > 60, Est GFR ( Non-Af Amer) > 60, Random Glucose 105, Calcium 9.9, Total Bilirubin 0.5, AST 43 , ALT 62 H, Alkaline Phosphatase 77, Lactate Dehydrogenase 461, Total Creatine Kinase 194, Troponin I < 0.01, Total Protein 7.8, Albumin 4.8, Globulin 3.0, Albumin/Globulin Ratio 1.6 - RAD Interpretation Radiology Orders: 12/21/17 03:28 CHEST PORTABLE [RAD] Stat - Medication Orders Current Medication Orders: Chlordiazepoxide (Librium) 50 mg PO Q8H [place] PRN Reason: Protocol Last Admin: 12/22/17 10:30 Dose: 50 mg Behavioural Document 12/22/17 10:30 MV (Rec: 12/22/17 10:31 MV [place] [id number]) Maintenance Maintenance Dose Yes Folic Acid (Folic Acid) 1 mg PO DAILY [facility] Last Admin: 12/22/17 10:31 Dose: 1 mg Folic Acid 1 mg/ Thiamine HCl 100 mg/ Multivitamins/Vitamin C 10 ml/ Dextrose 1 ,011.2 mls @ 100 mls/hr IV .Q10H7M [facility] Last Admin: 12/22/17 01:14 Dose: 100 mls/hr eMAR Start Stop Document 12/22/17 01:14 KTB (Rec: 12/22/17 01:14 KTB [place] [id number]) Intravenous Solution Start Date 12/22/17 Start Time 01:14 Lorazepam (Ativan) 2 mg IVP Q3H PRN; Protocol PRN Reason: Symptoms of alcohol withdrawl Last Admin: 12/22/17 08:18 Dose: 2 mg IVP Administration Document 12/22/17 08:18 MV (Rec: 12/22/17 08:18 MV [place] [id number]) Charges for Administration # of IVP Administrations 1 Behavioural Document 12/22/17 08:18 MV (Rec: 12/22/17 08:18 MV [place] [id number]) Behavior Behavior for Medication: Anxiety Pantoprazole Sodium (Protonix Inj) 40 mg IVP DAILY [facility] Last Admin: 12/22/17 10:31 Dose: 40 mg IVP Administration Document 12/22/17 10:31 MV (Rec: 12/22/17 10:31 MV [place] [id number]) Charges for Administration # of IVP Administrations 1 Thiamine HCl (Vitamin B1 Tab) 100 mg PO DAILY [facility] Last Admin: 12/22/17 10:31 Dose: 100 mg Discontinued Medications Chlordiazepoxide (Librium) 50 mg PO STAT STA PRN Reason: Protocol Stop: 12/21/17 12:54 Last Admin: 12/21/17 13:00 Dose: 50 mg Multivitamins/Vitamin C 10 ml/Thiamine HCl 100 mg/ Folic Acid 1 mg/ Sodium Chloride 1,011.2 mls @ 100 mls/hr IV .Q10H7M ONE Stop: 12/21/17 13:35 Last Admin: 12/21/17 04:15 Dose: 100 mls/hr eMAR Start Stop Document 12/21/17 04:15 CNR (Rec: 12/21/17 04:15 CNR [id number]) Intravenous Solution Start Date 12/21/17 Start Time 04:15 Lorazepam (Ativan) 1 mg IVP ONCE ONE Stop: 12/21/17 03:30 Last Admin: 12/21/17 03:47 Dose: 1 mg IVP Administration Document 12/21/17 03:47 CNR (Rec: 12/21/17 03:48 CNR [id number]) Charges for Administration # of IVP Administrations 1 Lorazepam (Ativan) 1 mg IVP ONCE ONE PRN Reason: Protocol Stop: 12/21/17 16:30 Last Admin: 12/21/17 16:43 Dose: 1 mg IVP Administration Document 12/21/17 16:43 SZA (Rec: 12/21/17 16:43 SZA [id number]) Charges for Administration # of IVP Administrations 1 Pneumococcal Polyvalent Vaccine (Pneumovax 23 Vaccine) 0.5 ml IM .ONCE ONE Stop: 12/21/17 23:41 - Scribe Statement The provider has reviewed the documentation as recorded by the Scribe <Luis Enrique Jon - Last Filed: 12/21/17 17:55> <Sixto Mariscal - Last Filed: 12/22/17 11:25> - Scribe Statement Jennifer Martins Provider Scribe Attestation: All medical record entries made by the Scribe were at my direction and personally dictated by me. I have reviewed the chart and agree that the record accurately reflects my personal performance of the history, physical exam, medical decision making, and the department course for this patient. I have also personally directed, reviewed, and agree with the discharge instructions and disposition. (Luis Enrique Jon) Disposition/Present on Arrival - Present on Arrival Any Indicators Present on Arrival: No History of DVT/PE: No History of Uncontrolled Diabetes: No Urinary Catheter: No History of Decub. Ulcer: No History Surgical Site Infection Following: None - Disposition Have Diagnosis and Disposition been Completed?: No Disposition Time: 07:00 <Luis Enrique Jon - Last Filed: 12/21/17 17:55> - Present on Arrival Any Indicators Present on Arrival: No - Disposition Have Diagnosis and Disposition been Completed?: Yes <Sixto Mariscal - Last Filed: 12/22/17 11:25> - Disposition Diagnosis: Alcohol abuse, Anxiety Disposition: HOSPITALIZED Patient Problems: Current Active Problems Problem Status Onset Anxiety Acute Alcohol abuse Chronic Condition: STABLE
[2017-12-21] MEDS ORDERED: Multivitamin (MVI) 10 ML, Thiamine 100 MG, Folic Acid 1 MG in Sodium Chloride 0.9% 1,00... IV ONE (03:29)
[2017-12-21 04:08] LABS: HEMOGLOBIN 15.2 g/dL (14.0-18.0); MEAN CELL VOLUME 96.7 fl (80.0-105.0); MEAN CORPUSCULAR HEMOGLOBIN 33.7 pg (25.0-35.0); MEAN CORPUSCULAR HGB CONC 34.9 g/dl (31.0-37.0); MEAN PLATELET VOLUME 10.5 fl (7.0-11.0); RBC 4.51 10^6/uL (3.5-6.1); RED CELL DISTRIBUTION WIDTH 12.6 % (11.5-14.5); WHITE BLOOD COUNT 9.1 10^3/ul (4.5-11.0)
[2017-12-21 04:41] LABS: ALB/GLOB RATIO 1.6 (1.1-1.8); ALBUMIN 4.8 g/dL (3.0-4.8); ALT/SGPT 62 U/L (7-56); AST/SGOT 43 U/L (17-59); BLOOD UREA NITROGEN 18 mg/dL (7-21); CALCIUM 9.9 mg/dL (8.4-10.5); GFR AFRICAN-AMERICAN > 60; GFR NON-AFRICAN AMERICAN > 60
[2017-12-21 04:50] LABS: BARBITURATES, UR NEGATIVE (NEGATIVE); BENZODIAZEPINES, UR NEGATIVE (NEGATIVE); OPIATES, UR NEGATIVE (NEGATIVE); PHENCYCLIDINE, UR NEGATIVE (NEGATIVE)
[2017-12-21 04:58] LABS: TROPONIN I < 0.01 ng/mL
--- NOTE | 2017-12-21 09:34 | RAD ---
HISTORY: Shortness of breath COMPARISON: 11/15/2017. FINDINGS: LUNGS: No active pulmonary disease. PLEURA: No significant pleural effusion identified, no pneumothorax apparent. CARDIOVASCULAR: Normal. OSSEOUS STRUCTURES: No significant abnormalities. VISUALIZED UPPER ABDOMEN: Normal. OTHER FINDINGS: None. IMPRESSION: No active pulmonary disease.
--- NOTE | 2017-12-21 09:45 | CARD ---
APPROVED REPORT EKG Measurement Heart [id number] <Conclusion> Normal sinus rhythm Right bundle branch block No change
[2017-12-21 13:20] LABS: URINE BILIRUBIN NEGATIVE (NEGATIVE); URINE BLOOD NEGATIVE (NEGATIVE); URINE GLUCOSE (UA) NEGATIVE (NEGATIVE); URINE LEUKOCYTE ESTERASE NEGATIVE Leu/uL (NEGATIVE); URINE NITRATE NEGATIVE (NEGATIVE); URINE PROTEIN NEGATIVE mg/dL (<30 mg/dL); URINE UROBILINOGEN 0.2 E.U./dL (<1 E.U./dL)
[2017-12-21 13:24] LABS: URINE APPEARANCE CLEAR (CLEAR); URINE COLOR YELLOW (YELLOW)
--- NOTE | 2017-12-21 19:20 | CP.PCM.HP ---
<Roberto Chavis - Last Filed: 12/21/17 19:00> History of Present Illness - History of Present Illness History of Present Illness: PGY-1 H&P for Dr. De Leon CC: alcohol withdrawal This is a 27 year old male with history of polysubstance abuse (alcohol, heroin , cocaine) who presented requesting detox from alcohol. Patient stated his last drink was yesterday. Patient was initially supposed to be transferred to [facility] for detox; however, his withdrawal symptoms have increased. Patient is complaining of palpitations, chest pain, dyspnea, diaphoresis. Patient was brought in by a family friend whom the patient lives with. The friend stated that patient was alcohol free for two weeks after prior discharge, but then he tried drinking socially. Patient himself does not recall when he started or how much he has been drinking recently. Patient states that he uses marijuana regularly but denies other drug use. Patient denies suicidal or homicidal ideation. PMHx: polysubstance abuse (alcohol, heroin, cocaine) PSHx: right upper extremity surgical repair s/p accident, appendectomy, right ankle surgery Allergies: NKDA Social: smokes 1 ppd, alcohol abuse (Per EMR, used to drink about half gallon of vodka per day for 6 years). Patient only admits to marijuana use, but from review of EMR, patient former cocaine and methamphetamine user from previous records. Family history: diabetes Present on Admission - Present on Admission Any Indicators Present on Admission: No Review of Systems - Constitutional Constitutional: absent: Chills, Fever - EENT Eyes: absent: Change in Vision Ears: absent: Decreased Hearing Nose/Mouth/Throat: absent: Nasal Congestion - Cardiovascular Cardiovascular: Chest Pain, Diaphoresis, Palpitations - Respiratory Respiratory: Dyspnea - Gastrointestinal Gastrointestinal: absent: Abdominal Pain, Constipation, Diarrhea, Nausea, Vomiting - Genitourinary Genitourinary: absent: Dysuria - Musculoskeletal Musculoskeletal: absent: Back Pain - Integumentary Integumentary: absent: Rash - Neurological Neurological: absent: Headaches, Weakness - Psychiatric Psychiatric: Anxiety - Endocrine Endocrine: Palpitations Past Patient History - Infectious Disease Hx of Infectious Diseases: None - Tetanus Immunizations Tetanus Immunization: Unknown - Past Social History Smoking Status: Smoker Currrent Status Unknown - CARDIAC Hx Cardiac Disorders: No - PULMONARY Hx Respiratory Disorders: No - NEUROLOGICAL Hx Neurological Disorder: No - HEENT Hx HEENT Problems: No - RENAL Hx Chronic Kidney Disease: No - ENDOCRINE/METABOLIC Hx Endocrine Disorders: No - HEMATOLOGICAL/ONCOLOGICAL Hx Blood Disorders: No - INTEGUMENTARY Hx Dermatological Problems: No - MUSCULOSKELETAL/RHEUMATOLOGICAL Hx Musculoskeletal Disorders: No Hx Falls: No - GASTROINTESTINAL Hx Gastrointestinal Disorders: Yes (GASTRITIS,APPENDICITIS) - GENITOURINARY/GYNECOLOGICAL Hx Genitourinary Disorders: No - PSYCHIATRIC Hx Psychophysiologic Disorder: Yes Hx Substance Use: Yes (weed) Other/Comment: alcohol abuse - SURGICAL HISTORY Hx Appendectomy: Yes Other/Comment: right arm surgery/ - ANESTHESIA Hx Anesthesia: Yes Hx Anesthesia Reactions: No Hx Malignant Hyperthermia: No Meds Allergies/Adverse Reactions: Allergies Allergy/AdvReac Type Severity Reaction Status Date / Time No Known Allergies Allergy Verified 12/21/17 03:11 Physical Exam - Constitutional Appears: Other (Tremulous) - Head Exam Head Exam: ATRAUMATIC, NORMOCEPHALIC - Eye Exam Eye Exam: EOMI, PERRL - ENT Exam ENT Exam: Mucous Membranes Moist - Respiratory Exam Respiratory Exam: Clear to Auscultation Bilateral, NORMAL BREATHING PATTERN. absent: Rales, Rhonchi, Wheezes - Cardiovascular Exam Cardiovascular Exam: Tachycardia, +S1, +S2 - GI/Abdominal Exam GI & Abdominal Exam: Normal Bowel Sounds, Soft. absent: Distended, Guarding, Tenderness - Extremities Exam Extremities exam: Positive for: pedal pulses present. Negative for: pedal edema , tenderness - Neurological Exam Neurological exam: Alert, Oriented x3 - Psychiatric Exam Psychiatric exam: Anxious - Skin Skin Exam: Diaphoretic, Warm Results - Vital Signs Recent Vital Signs: Last Vital Signs Temp 98.8 F 12/21/17 10:04 Pulse 79 12/21/17 16:50 Resp 18 12/21/17 16:50 BP 119/65 12/21/17 16:50 Pulse Ox 98 12/21/17 16:50 - Labs Result Diagrams: 12/21/17 03:55 12/21/17 03:55 Assessment & Plan - Assessment and Plan (Free Text) Assessment: This is a 27 year old male with history of polysubstance abuse who presents in active alcohol withdrawal. Plan: Alcohol Withdrawal [facility] protocol Received one banana bag in the ED. Second bag ordered. In ED, received one dose of Librium 50 mg and 2 doses of IV Ativan 1 mg each. Started Librium 50 mg PO Q8H LAWSON Started Ativan 2 mg IV Q3H prn Thiamine and folic acid Prophylaxis Protonix and SCDs Discussed and seen with Dr. De Leon <Nora De Leon - Last Filed: 12/22/17 06:45> Results - Vital Signs Recent Vital Signs: Last Vital Signs Temp 97.8 F 12/21/17 22:55 Pulse 65 12/22/17 05:18 Resp 20 12/21/17 22:55 BP 140/88 12/21/17 22:55 Pulse Ox 99 12/21/17 21:15 - Labs Result Diagrams: 12/21/17 03:55 12/21/17 03:55 Labs: Laboratory Results - last 24 hr 12/21/17 12/22/17 21:31 01:20 Troponin I < 0.01 < 0.01 Attending/Attestation - Attestation I have personally seen and examined this patient.: Yes I have fully participated in the care of the patient.: Yes I have reviewed all pertinent clinical information: Yes Notes (Text): 12/21/17 27 year old male with past medical history of alcohol abuse and polysubstance ( marijuana/cocaine) abuse who initially presented for detox. While in ER he went into alcohol withdrawal and is now admitted. Also complained of chest pain. Continue with banana bag, librium and ativan prn for alcohol withdrawal symptoms. He was counselled on risks of continued substance and alcohol abuse. ALT is mildly elevated; will continue to monitor. Will obtain serial cardiac enzymes to rule out ACS. Mother is also at bedside and questions were answered. Nora De Leon MD Hospitalist.
[2017-12-21] MEDS: Folic Acid 1 MG, Thiamine 100 MG, Multivitamin (MVI) 10 ML in Dextrose 5% In Water 1,00... IV SCH (21:24)
[2017-12-21 23:40] VITALS: BMI 25.1
[2017-12-21] MEDS ORDERED: Pneumococcal 23-Valent Vaccine IM ONE (23:40)
[2017-12-21] MEDS ORDERED: Influenza Vaccine 60 mcg/0.5 mL SYR (4YR UP) IM ONE (23:40)
[2017-12-22] MEDS: Folic Acid 1 MG, Thiamine 100 MG, Multivitamin (MVI) 10 ML in Dextrose 5% In Water 1,00... IV SCH (01:14)
[2017-12-22 06:35] LABS: BASO # 0.03 K/mm3 (0.0-2.0); BASO % 0.4 % (0.0-3.0); EOS # 0.2 (0.0-0.7); EOS % 2.8 % (1.5-5.0); GRAN # 3.01 (1.4-6.5); GRAN % 42.9 % (50.0-68.0); HEMOGLOBIN 14.3 g/dL (14.0-18.0); LYMPH # 3.3 (1.2-3.4); LYMPH % 46.6 % (22.0-35.0); MEAN CELL VOLUME 100.5 fl (80.0-105.0); MEAN CORPUSCULAR HEMOGLOBIN 33.3 pg (25.0-35.0); MEAN CORPUSCULAR HGB CONC 33.2 g/dl (31.0-37.0); MEAN PLATELET VOLUME 10.7 fl (7.0-11.0); MONO # 0.5 (0.1-0.6); MONO % 7.3 % (1.0-6.0); RBC 4.29 10^6/uL (3.5-6.1); RED CELL DISTRIBUTION WIDTH 12.5 % (11.5-14.5)
[2017-12-22 07:32] LABS: ALB/GLOB RATIO 1.4 (1.1-1.8); ALBUMIN 4.2 g/dL (3.0-4.8); ALT/SGPT 54 U/L (7-56); AST/SGOT 42 U/L (17-59); BLOOD UREA NITROGEN 18 mg/dL (7-21); CALCIUM 9.4 mg/dL (8.4-10.5); GFR AFRICAN-AMERICAN > 60; GFR NON-AFRICAN AMERICAN > 60; MAGNESIUM 2.2 mg/dL (1.7-2.2)
--- NOTE | 2017-12-22 13:52 | CP.PCM.PN ---
<JeremiahRonen - Last Filed: 12/22/17 13:48> Subjective - Date & Time of Evaluation Date of Evaluation: 12/22/17 Time of Evaluation: 13:48 - Subjective Subjective: Medicine Progress Note: Patient seen and assessed at bedside. No acute events noted overnight by nursing staff or patient. Patient denies any complaints at this time including fever, chills, headache, sore throat, chest pain, palpitations, SOB, cough, abdominal pain, N/V/D/C, urinary symptoms, skin changes or any numbness/tingling /weakness of any extremity. Objective - Vital Signs/Intake and Output Vital Signs (last 24 hours): Temp Pulse Resp BP Pulse Ox 97.8 F 56 L 20 115/72 99 12/22/17 08:13 12/22/17 08:13 12/22/17 08:13 12/22/17 08:13 12/22/17 08:13 Intake and Output: 12/22/17 12/22/17 06:59 18:59 Intake Total 480 Balance 480 - Medications Medications: Current Medications Chlordiazepoxide (Librium) 25 mg PO Q8 [facility] PRN Reason: Protocol Folic Acid (Folic Acid) 1 mg PO DAILY [facility] Last Admin: 12/22/17 10:31 Dose: 1 mg Lorazepam (Ativan) 2 mg IVP Q3H PRN; Protocol PRN Reason: Symptoms of alcohol withdrawl Last Admin: 12/22/17 08:18 Dose: 2 mg Multivitamins (Thera Tab) 1 tab PO DAILY [facility] Multivitamins/Minerals (Therapeutic-M Tab) 1 tab PO 0800 [facility] Nicotine (Nicoderm Cq) 1 patch TD DAILY [facility] Pantoprazole Sodium (Protonix Ec Tab) 40 mg PO ACB [facility] Thiamine HCl (Vitamin B1 Tab) 100 mg PO DAILY [facility] Last Admin: 12/22/17 10:31 Dose: 100 mg - Labs Labs: 12/22/17 05:30 12/22/17 05:30 - Constitutional Appears: Non-toxic, No Acute Distress - Head Exam Head Exam: ATRAUMATIC, NORMAL INSPECTION, NORMOCEPHALIC - Eye Exam Eye Exam: EOMI, Normal appearance, PERRL - ENT Exam ENT Exam: Mucous Membranes Moist, Normal Exam - Neck Exam Neck Exam: Full ROM, Normal Inspection. absent: Lymphadenopathy - Respiratory Exam Respiratory Exam: Clear to Ausculation Bilateral, NORMAL BREATHING PATTERN. absent: Accessory Muscle Use, Chest Wall Tenderness, Decreased Breath Sounds, Prolonged Expiratory Phase, Rales, Rhonchi, Wheezes, Respiratory Distress, Stridor - Cardiovascular Exam Cardiovascular Exam: REGULAR RHYTHM, +S1, +S2. absent: Bradycardia, Tachycardia , Clicks, Diastolic murmur, Gallop, Irregular Rhythm, JVD, RRR, Rubs, +S4, Murmur - GI/Abdominal Exam GI & Abdominal Exam: Soft, Normal Bowel Sounds. absent: Tenderness - Extremities Exam Extremities Exam: Full ROM, Normal Capillary Refill, Normal Inspection. absent : Calf Tenderness, Joint Swelling, Pedal Edema, Tenderness - Back Exam Back Exam: NORMAL INSPECTION - Neurological Exam Neurological Exam: Alert, Awake, CN II-XII Intact, Oriented x3 - Psychiatric Exam Psychiatric exam: Normal Affect, Normal Mood - Skin Skin Exam: Dry, Intact, Normal Color, Warm Assessment and Plan - Assessment and Plan (Free Text) Assessment: 27 year old male with a past medical history significant for alcohol, cocaine and methamphetamine abuse who presents for alcohol withdrawal. Patient was initially scheduled for transfer to Detox unit but displayed signs of alcohol withdrawal in ED. Currently, patient has consecutive CIWA scores of 0. Plan: 1. Alcohol Withdrawal -Alcohol level of 227 on admission -EKG showing normal sinus rhythm -Tapered Librium from 50 mg PO Q8H LAWSON to 25mg at the same dosing frequency -Continue Ativan 2 mg IV Q3H PRN -Folic Acid, Thiamine and MV supplementation -CIWA Assessments Q4H -Aspiration and Seizure precautions -SW Consulted for Detox Unit placement -Cessation counseling provided 2. Tobacco Use -Nicoderm CQ 21mg/day -Cessation counseling provided GI Prophylaxis: Protonix DVT Prophylaxis: SCD's Patient seen and case discussed with attending, Dr. De Leon. <Nora De Leon - Last Filed: 12/22/17 15:08> Objective - Vital Signs/Intake and Output Vital Signs (last 24 hours): Temp Pulse Resp BP Pulse Ox 97.8 F 56 L 20 115/72 99 12/22/17 08:13 12/22/17 08:13 12/22/17 08:13 12/22/17 08:13 12/22/17 08:13 Intake and Output: 12/22/17 12/22/17 06:59 18:59 Intake Total 480 Balance 480 - Medications Medications: Current Medications Chlordiazepoxide (Librium) 25 mg PO Q8 [facility] PRN Reason: Protocol Last Admin: 12/22/17 14:07 Dose: 25 mg Folic Acid (Folic Acid) 1 mg PO DAILY [facility] Last Admin: 12/22/17 10:31 Dose: 1 mg Lorazepam (Ativan) 2 mg IVP Q3H PRN; Protocol PRN Reason: Symptoms of alcohol withdrawl Last Admin: 12/22/17 14:07 Dose: 2 mg Multivitamins/Minerals (Therapeutic-M Tab) 1 tab PO 0800 [facility] Nicotine (Nicoderm Cq) 1 patch TD DAILY [facility] Last Admin: 12/22/17 14:07 Dose: 1 patch Pantoprazole Sodium (Protonix Ec Tab) 40 mg PO ACB [facility] Thiamine HCl (Vitamin B1 Tab) 100 mg PO DAILY [facility] Last Admin: 12/22/17 10:31 Dose: 100 mg - Labs Labs: 12/22/17 05:30 12/22/17 05:30 Attending/Attestation - Attestation I have personally seen and examined this patient.: Yes I have fully participated in the care of the patient.: Yes I have reviewed all pertinent clinical information, including history, physical exam and plan: Yes Notes (Text): 12/22/17 15:05 27 year old male with past medical history of alcohol abuse and polysubstance ( marijuana/cocaine) abuse who is admitted for alcohol withdrawal. Continue with librium taper and ativan prn for alcohol withdrawal symptoms. Continue with po multivitamin, folic acid and thiamine. He was counselled on risks of continued substance and alcohol abuse. ALT was mildly elevated but improved. His chest pain has resolved. Serial cardiac enzymes were negative and ACS was ruled out. 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 Nora De Leon MD Hospitalist. 12/22/17 15:07
[2017-12-23] MEDS ORDERED: Pantoprazole 40 mg EC Tab PO SCH (07:30)
[2017-12-23] MEDS ORDERED: Multivitamin With Minerals Tab PO SCH (08:00)
[2017-12-23] MEDS ORDERED: Multivitamin Therapeutic Tab PO SCH (10:00)
[2017-12-23 10:20] LABS: BASO # 0.04 K/mm3 (0.0-2.0); BASO % 0.5 % (0.0-3.0); EOS # 0.2 (0.0-0.7); EOS % 2.9 % (1.5-5.0); GRAN # 4.45 (1.4-6.5); GRAN % 58.9 % (50.0-68.0); HEMOGLOBIN 14.6 g/dL (14.0-18.0); LYMPH # 2.4 (1.2-3.4); LYMPH % 31.9 % (22.0-35.0); MEAN CELL VOLUME 99.3 fl (80.0-105.0); MEAN CORPUSCULAR HEMOGLOBIN 34.1 pg (25.0-35.0); MEAN CORPUSCULAR HGB CONC 34.4 g/dl (31.0-37.0); MEAN PLATELET VOLUME 10.6 fl (7.0-11.0); MONO # 0.4 (0.1-0.6); MONO % 5.8 % (1.0-6.0); RBC 4.28 10^6/uL (3.5-6.1); RED CELL DISTRIBUTION WIDTH 12.3 % (11.5-14.5); WHITE BLOOD COUNT 7.6 10^3/ul (4.5-11.0)
[2017-12-23 10:23] LABS: ALB/GLOB RATIO 1.4 (1.1-1.8); ALBUMIN 4.2 g/dL (3.0-4.8); ALT/SGPT 56 U/L (7-56); AST/SGOT 40 U/L (17-59); BLOOD UREA NITROGEN 15 mg/dL (7-21); CALCIUM 9.7 mg/dL (8.4-10.5); GFR AFRICAN-AMERICAN > 60; GFR NON-AFRICAN AMERICAN > 60
[2017-12-23 11:17] VITALS: BP 108/68; RESP 19; TEMP 97.6; O2SAT 96
[2017-12-23 12:05] VITALS: PULSE 82
--- NOTE | 2017-12-23 12:08 | CP.PCM.PN ---
<JeremiahRonen - Last Filed: 12/23/17 20:18> Subjective - Date & Time of Evaluation Date of Evaluation: 12/23/17 Time of Evaluation: 12:03 - Subjective Subjective: Medicine Progress Note: Patient seen and assessed at bedside. No acute events overnight reported by nursing staff or patient. Patient has no complaints at this time including fever , chills, headache, chest pain, palpitations, SOB, cough, abdominal pain, N/V/D/ C, urinary symptoms, skin changes, or any numbness/tingling/weakness of any extremity. Objective - Vital Signs/Intake and Output Vital Signs (last 24 hours): Temp Pulse Resp BP Pulse Ox 97.6 F 58 L 19 108/68 96 12/23/17 06:00 12/23/17 06:00 12/23/17 06:00 12/23/17 06:00 12/23/17 06:00 Intake and Output: 12/23/17 12/23/17 06:59 18:59 Intake Total 120 Balance 120 - Medications Medications: Current Medications Chlordiazepoxide (Librium) 10 mg PO Q8 [facility] PRN Reason: Protocol Folic Acid (Folic Acid) 1 mg PO DAILY [facility] Last Admin: 12/23/17 09:12 Dose: 1 mg Lorazepam (Ativan) 1 mg IVP Q4H PRN; Protocol PRN Reason: Symptoms of alcohol withdrawl Multivitamins/Minerals (Therapeutic-M Tab) 1 tab PO 0800 [facility] Last Admin: 12/23/17 09:12 Dose: 1 tab Nicotine (Nicoderm Cq) 1 patch TD DAILY [facility] Last Admin: 12/23/17 09:12 Dose: 1 patch Pantoprazole Sodium (Protonix Ec Tab) 40 mg PO ACB [facility] Last Admin: 12/23/17 09:12 Dose: 40 mg Thiamine HCl (Vitamin B1 Tab) 100 mg PO DAILY [facility] Last Admin: 12/23/17 09:12 Dose: 100 mg - Labs Labs: 12/23/17 09:50 12/23/17 09:50 - Constitutional Appears: Non-toxic, No Acute Distress - Head Exam Head Exam: ATRAUMATIC, NORMAL INSPECTION, NORMOCEPHALIC - Eye Exam Eye Exam: EOMI, Normal appearance, PERRL - ENT Exam ENT Exam: Mucous Membranes Moist, Normal Exam - Neck Exam Neck Exam: Full ROM, Normal Inspection. absent: Lymphadenopathy - Respiratory Exam Respiratory Exam: Clear to Ausculation Bilateral, NORMAL BREATHING PATTERN. absent: Accessory Muscle Use, Chest Wall Tenderness, Decreased Breath Sounds, Prolonged Expiratory Phase, Rales, Rhonchi, Wheezes, Respiratory Distress, Stridor - Cardiovascular Exam Cardiovascular Exam: REGULAR RHYTHM, RRR, +S1, +S2. absent: Bradycardia, Tachycardia - GI/Abdominal Exam GI & Abdominal Exam: Soft, Normal Bowel Sounds. absent: Tenderness - Extremities Exam Extremities Exam: Full ROM, Normal Capillary Refill, Normal Inspection. absent : Calf Tenderness, Joint Swelling, Pedal Edema - Back Exam Back Exam: NORMAL INSPECTION - Neurological Exam Neurological Exam: Alert, Awake, CN II-XII Intact, Oriented x3 - Psychiatric Exam Psychiatric exam: Normal Affect, Normal Mood - Skin Skin Exam: Dry, Intact, Normal Color, Warm Assessment and Plan - Assessment and Plan (Free Text) Assessment: 27 year old male with a past medical history significant for alcohol, cocaine and methamphetamine abuse who presents for alcohol withdrawal. Patient was initially scheduled for transfer to Detox unit but displayed signs of alcohol withdrawal and chest pain in ED. Chest pain has since resolved and, with three serial negative troponins, ACS was ruled out. Patient currently being tapered down on Librium and Ativan in anticipation of transfer to detox unit at [facility]. Plan: 1. Alcohol Withdrawal -Alcohol level of 227 on admission -Tapered Librium from 25 mg PO Q8H LAWSON to 10mg at the same dosing frequency -Tapered Ativan from 2 mg IVP Q3H PRN to 1mg IVP Q4H PRN -PO Folic Acid, Thiamine and MV supplementation -CIWA Assessments Q4H -Aspiration and Seizure precautions -SW Consulted for Detox Unit placement -Cessation counseling provided 2. Tobacco Use -Nicoderm CQ 21mg/day -Cessation counseling provided 3. Chest Pain -Three negative serial troponins -EKG showing NSR -Resolved GI Prophylaxis: Protonix DVT Prophylaxis: SCD's Patient seen and case discussed with attending, Dr. De Leon. <Nora De Leon - Last Filed: 12/24/17 07:16> Objective - Vital Signs/Intake and Output Vital Signs (last 24 hours): Temp Pulse Resp BP Pulse Ox 97.6 F 82 19 108/68 96 12/23/17 06:00 12/23/17 14:00 12/23/17 06:00 12/23/17 06:00 12/23/17 06:00 - Labs Labs: 12/23/17 09:50 12/23/17 09:50 Attending/Attestation - Attestation I have personally seen and examined this patient.: Yes I have fully participated in the care of the patient.: Yes I have reviewed all pertinent clinical information, including history, physical exam and plan: Yes Notes (Text): 12/23/17 27 year old male with past medical history of alcohol abuse and polysubstance ( marijuana/cocaine) abuse who is admitted for alcohol withdrawal. Continue with librium taper and ativan prn for alcohol withdrawal symptoms. Symptoms are slowly improving. Continue with po multivitamin, folic acid and thiamine. He was counselled on risks of continued substance and alcohol abuse. ALT was mildly elevated but has improved. His chest pain has resolved. Serial cardiac enzymes were negative and ACS was ruled out. 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 Nora De Leon MD Hospitalist.
--- NOTE | 2017-12-23 20:24 | CP.PCM.DIS ---
<Ronen Daniels - Last Filed: 12/23/17 20:18> Provider - Provider Date of Admission: 12/21/17 16:49 Attending physician: Nora De Leon MD Time Spent in preparation of Discharge (in minutes): 41 Hospital Course - Lab Results Lab Results: Most Recent Lab Values WBC 7.6 10^3/ul (4.5-11.0) 12/23/17 09:50 RBC 4.28 10^6/uL (3.5-6.1) 12/23/17 09:50 Hgb 14.6 g/dL (14.0-18.0) 12/23/17 09:50 Hct 42.5 % (42.0-52.0) 12/23/17 09:50 MCV 99.3 fl (80.0-105.0) 12/23/17 09:50 MCH 34.1 pg (25.0-35.0) 12/23/17 09:50 MCHC 34.4 g/dl (31.0-37.0) 12/23/17 09:50 RDW 12.3 % (11.5-14.5) 12/23/17 09:50 Plt Count 187 10^3/uL (120.0-450.0) 12/23/17 09:50 MPV 10.6 fl (7.0-11.0) 12/23/17 09:50 Gran % 58.9 % (50.0-68.0) 12/23/17 09:50 Lymph % (Auto) 31.9 % (22.0-35.0) 12/23/17 09:50 [place] % (Auto) 5.8 % (1.0-6.0) 12/23/17 09:50 Eos % (Auto) 2.9 % (1.5-5.0) 12/23/17 09:50 Baso % (Auto) 0.5 % (0.0-3.0) 12/23/17 09:50 Gran # 4.45 (1.4-6.5) 12/23/17 09:50 Lymph # (Auto) 2.4 (1.2-3.4) 12/23/17 09:50 [place] # (Auto) 0.4 (0.1-0.6) 12/23/17 09:50 Eos # (Auto) 0.2 (0.0-0.7) 12/23/17 09:50 Baso # (Auto) 0.04 K/mm3 (0.0-2.0) 12/23/17 09:50 Sodium 143 mmol/L (132-148) 12/23/17 09:50 Potassium 3.9 mmol/L (3.6-5.0) 12/23/17 09:50 Chloride 107 mmol/L (98-107) 12/23/17 09:50 Carbon Dioxide 26 mmol/L (21-33) 12/23/17 09:50 Anion Gap 15 (10-20) 12/23/17 09:50 BUN 15 mg/dL (7-21) 12/23/17 09:50 Creatinine 0.9 mg/dl (0.8-1.5) 12/23/17 09:50 Est GFR ( Amer) > 60 12/23/17 09:50 Est GFR (Non-Af Amer) > 60 12/23/17 09:50 Random Glucose 101 mg/dL (70-110) 12/23/17 09:50 Calcium 9.7 mg/dL (8.4-10.5) 12/23/17 09:50 Phosphorus 4.6 mg/dL (2.5-4.5) H 12/22/17 05:30 Magnesium 2.2 mg/dL (1.7-2.2) 12/22/17 05:30 Total Bilirubin 0.7 mg/dL (0.2-1.3) 12/23/17 09:50 AST 40 U/L (17-59) 12/23/17 09:50 ALT 56 U/L (7-56) 12/23/17 09:50 Alkaline Phosphatase 61 U/L (38-126) 12/23/17 09:50 Lactate Dehydrogenase 461 U/L (333-699) 12/21/17 03:55 Total Creatine Kinase 194 U/L (35-230) 12/21/17 03:55 Troponin I < 0.01 ng/mL 12/22/17 01:20 Total Protein 7.1 g/dL (5.8-8.3) 12/23/17 09:50 Albumin 4.2 g/dL (3.0-4.8) 12/23/17 09:50 Globulin 2.9 gm/dL 12/23/17 09:50 Albumin/Globulin Ratio 1.4 (1.1-1.8) 12/23/17 09:50 Urine Color Yellow (YELLOW) 12/21/17 13:00 Urine Appearance Clear (CLEAR) 12/21/17 13:00 Urine pH 6.0 (4.7-8.0) 12/21/17 13:00 Ur Specific [place] 1.010 (1.005-1.035) 12/21/17 13:00 Urine Protein Negative mg/dL (<30 mg/dL) 12/21/17 13:00 Urine Glucose (UA) Negative mg/dL (NEGATIVE) 12/21/17 13:00 Urine Ketones Negative mg/dL (NEGATIVE) 12/21/17 13:00 Urine Blood Negative (NEGATIVE) 12/21/17 13:00 Urine Nitrate Negative (NEGATIVE) 12/21/17 13:00 Urine Bilirubin Negative (NEGATIVE) 12/21/17 13:00 Urine Urobilinogen 0.2 E.U./dL (<1 E.U./dL) 12/21/17 13:00 Ur Leukocyte Esterase Negative Kiersten/uL (NEGATIVE) 12/21/17 13:00 Urine Opiates Screen Negative (NEGATIVE) 12/21/17 03:55 Urine Methadone Screen Negative (NEGATIVE) 12/21/17 03:55 Ur Barbiturates Screen Negative (NEGATIVE) 12/21/17 03:55 Ur Phencyclidine Scrn Negative (NEGATIVE) 12/21/17 03:55 Ur Amphetamines Screen Negative (NEGATIVE) 12/21/17 03:55 U Benzodiazepines Scrn Negative (NEGATIVE) 12/21/17 03:55 U Oth Cocaine Metabols Positive (NEGATIVE) H 12/21/17 03:55 U Cannabinoids Screen Positive (NEGATIVE) H 12/21/17 03:55 Alcohol, Quantitative 227 mg/dL (0-10) H 12/21/17 03:55 - Hospital Course Hospital Course: 27 year old male with a past medical history of polysubstance abuse (alcohol, heroin, cocaine) who presented requesting detox from alcohol but then experienced chest pain and symptoms of alcohol withdrawal in the ED. Patient was admitted for ACS rule out and alcohol withdrawal. Patient had three negative serial troponins and ACS was ruled out. Patient was started on Librium and Ativan. Once his symptoms of alcohol withdrawal were controlled, these medications were tapered. Social work was consulted and discussed substance abuse treatment programs with patient. On 12/23/17, after being explained all of the benefits he could expect from staying and all risks he could experience from leaving, patient signed out against medical advice. - Date & Time of H&P Date of H&P: 12/21/17 Time of H&P: 19:00 Discharge Exam - Head Exam Head Exam: ATRAUMATIC, NORMAL INSPECTION, NORMOCEPHALIC - Eye Exam Eye Exam: EOMI, Normal appearance, PERRL - Respiratory Exam Respiratory Exam: Clear to PA & Lateral, NORMAL BREATHING PATTERN, UNREMARKABLE - Cardiovascular Exam Cardiovascular Exam: REGULAR RHYTHM - GI/Abdominal Exam GI & Abdominal Exam: Normal Bowel Sounds, Unremarkable - Extremities Exam Extremities exam: full ROM, normal capillary refill, normal inspection, pedal pulses present - Back Exam Back exam: NORMAL INSPECTION - Neurological Exam Neurological exam: Alert, CN II-XII Intact, Normal Gait, Oriented x3, Reflexes Normal - Psychiatric Exam Psychiatric exam: Normal Affect, Normal Mood - Skin Skin Exam: Dry, Intact, Normal Color, Warm Discharge Plan - Follow Up Plan Condition: GUARDED Disposition: AGAINST MEDICAL ADVICE <Nora De Leon - Last Filed: 12/24/17 07:18> Provider - Provider Date of Admission: 12/21/17 16:49 Attending physician: Nora De Leon MD [facility] Course - Lab Results Lab Results: Most Recent Lab Values WBC 7.6 10^3/ul (4.5-11.0) 12/23/17 09:50 RBC 4.28 10^6/uL (3.5-6.1) 12/23/17 09:50 Hgb 14.6 g/dL (14.0-18.0) 12/23/17 09:50 Hct 42.5 % (42.0-52.0) 12/23/17 09:50 MCV 99.3 fl (80.0-105.0) 12/23/17 09:50 MCH 34.1 pg (25.0-35.0) 12/23/17 09:50 MCHC 34.4 g/dl (31.0-37.0) 12/23/17 09:50 RDW 12.3 % (11.5-14.5) 12/23/17 09:50 Plt Count 187 10^3/uL (120.0-450.0) 12/23/17 09:50 MPV 10.6 fl (7.0-11.0) 12/23/17 09:50 Gran % 58.9 % (50.0-68.0) 12/23/17 09:50 Lymph % (Auto) 31.9 % (22.0-35.0) 12/23/17 09:50 [place] % (Auto) 5.8 % (1.0-6.0) 12/23/17 09:50 Eos % (Auto) 2.9 % (1.5-5.0) 12/23/17 09:50 Baso % (Auto) 0.5 % (0.0-3.0) 12/23/17 09:50 Gran # 4.45 (1.4-6.5) 12/23/17 09:50 Lymph # (Auto) 2.4 (1.2-3.4) 12/23/17 09:50 [place] # (Auto) 0.4 (0.1-0.6) 12/23/17 09:50 Eos # (Auto) 0.2 (0.0-0.7) 12/23/17 09:50 Baso # (Auto) 0.04 K/mm3 (0.0-2.0) 12/23/17 09:50 Sodium 143 mmol/L (132-148) 12/23/17 09:50 Potassium 3.9 mmol/L (3.6-5.0) 12/23/17 09:50 Chloride 107 mmol/L (98-107) 12/23/17 09:50 Carbon Dioxide 26 mmol/L (21-33) 12/23/17 09:50 Anion Gap 15 (10-20) 12/23/17 09:50 BUN 15 mg/dL (7-21) 12/23/17 09:50 Creatinine 0.9 mg/dl (0.8-1.5) 12/23/17 09:50 Est GFR ( Amer) > 60 12/23/17 09:50 Est GFR (Non-Af Amer) > 60 12/23/17 09:50 Random Glucose 101 mg/dL (70-110) 12/23/17 09:50 Calcium 9.7 mg/dL (8.4-10.5) 12/23/17 09:50 Phosphorus 4.6 mg/dL (2.5-4.5) H 12/22/17 05:30 Magnesium 2.2 mg/dL (1.7-2.2) 12/22/17 05:30 Total Bilirubin 0.7 mg/dL (0.2-1.3) 12/23/17 09:50 AST 40 U/L (17-59) 12/23/17 09:50 ALT 56 U/L (7-56) 12/23/17 09:50 Alkaline Phosphatase 61 U/L (38-126) 12/23/17 09:50 Lactate Dehydrogenase 461 U/L (333-699) 12/21/17 03:55 Total Creatine Kinase 194 U/L (35-230) 12/21/17 03:55 Troponin I < 0.01 ng/mL 12/22/17 01:20 Total Protein 7.1 g/dL (5.8-8.3) 12/23/17 09:50 Albumin 4.2 g/dL (3.0-4.8) 12/23/17 09:50 Globulin 2.9 gm/dL 12/23/17 09:50 Albumin/Globulin Ratio 1.4 (1.1-1.8) 12/23/17 09:50 Urine Color Yellow (YELLOW) 12/21/17 13:00 Urine Appearance Clear (CLEAR) 12/21/17 13:00 Urine pH 6.0 (4.7-8.0) 12/21/17 13:00 Ur Specific [place] 1.010 (1.005-1.035) 12/21/17 13:00 Urine Protein Negative mg/dL (<30 mg/dL) 12/21/17 13:00 Urine Glucose (UA) Negative mg/dL (NEGATIVE) 12/21/17 13:00 Urine Ketones Negative mg/dL (NEGATIVE) 12/21/17 13:00 Urine Blood Negative (NEGATIVE) 12/21/17 13:00 Urine Nitrate Negative (NEGATIVE) 12/21/17 13:00 Urine Bilirubin Negative (NEGATIVE) 12/21/17 13:00 Urine Urobilinogen 0.2 E.U./dL (<1 E.U./dL) 12/21/17 13:00 Ur Leukocyte Esterase Negative Kiersten/uL (NEGATIVE) 12/21/17 13:00 Urine Opiates Screen Negative (NEGATIVE) 12/21/17 03:55 Urine Methadone Screen Negative (NEGATIVE) 12/21/17 03:55 Ur Barbiturates Screen Negative (NEGATIVE) 12/21/17 03:55 Ur Phencyclidine Scrn Negative (NEGATIVE) 12/21/17 03:55 Ur Amphetamines Screen Negative (NEGATIVE) 12/21/17 03:55 U Benzodiazepines Scrn Negative (NEGATIVE) 12/21/17 03:55 U Oth Cocaine Metabols Positive (NEGATIVE) H 12/21/17 03:55 U Cannabinoids Screen Positive (NEGATIVE) H 12/21/17 03:55 Alcohol, Quantitative 227 mg/dL (0-10) H 12/21/17 03:55 Discharge Plan - Follow Up Plan Patient education suggested?: Yes Attending/Attestation - Attestation I have personally seen and examined this patient.: Yes I have fully participated in the care of the patient.: Yes I have reviewed all pertinent clinical information, including history, physical exam and plan: Yes Notes (Text): 12/23/17 27 year old male with past medical history of alcohol abuse and polysubstance ( marijuana/cocaine) abuse who was admitted for alcohol withdrawal. He was on a librium and ativan taper for alcohol withdrawal symptoms. He was on po multivitamin, folic acid and thiamine. He was counselled on risks of continued substance and alcohol abuse. He was seen by social services analyst today to discuss detox options. Later in the afternoon he signed out against medical advice. Nora De Leon MD Hospitalist.
== END 2017-12-23 14:47 | disposition left against medical advice (07) | DRG 749 ==
LOC: ED 02:47 → ERH 16:49 → 3RNO 21:58 → UNDODISIN 12-22 12:41
PROVIDERS: ADMIT Hospitalist; ATTEND Internal Medicine
DX: F10.239 Alcohol dependence with withdrawal, unspecified (principal); F12.10 Cannabis abuse, uncomplicated; F14.10 Cocaine abuse, uncomplicated; R07.9 Chest pain, unspecified; F41.9 Anxiety disorder, unspecified; F17.210 Nicotine dependence, cigarettes, uncomplicated; Z90.49 Acquired absence of other specified parts of digestive tract

== ENCOUNTER 2017-12-26 21:54 | Emergency (ER) | payer OTHER ==
[2017-12-26 21:54] VITALS: BMI 25.1
--- NOTE | 2017-12-26 22:18 | ED PDOC ---
Arrival/HPI - General Time Seen by Provider: 12/26/17 22:00 Historian: Patient - History of Present Illness Narrative History of Present Illness (Text): 12/26/17 22:10 A 27 year old male, whose past medical history includes alcohol abuse, alcohol withdrawal, and substance abuse, presents to the emergency department complaining of depression, anxiety, and suicidal ideation thoughts. Patient has superficial cuts to left forearm. Patient admits to having been drinking tonight. Denies any somatic complaints. No PMD Past Medical History - Provider Review Nursing Documentation Reviewed: Yes - Past History Past History: No Previous (alcohol dependent) - Infectious Disease Hx of Infectious Diseases: None - Tetanus Immunization Tetanus Immunization: Unknown - Past Medical History Past Medical History: No Previous - Cardiac Hx Cardiac Disorders: No - Pulmonary Hx Respiratory Disorders: No - Neurological Hx Neurological Disorder: No - HEENT Hx HEENT Disorder: No - Renal Hx Renal Disorder: No - Endocrine/Metabolic Hx Endocrine Disorders: No - Hematological/Oncological Hx Blood Disorders: No - Integumentary Hx Dermatological Disorder: No - Musculoskeletal/Rheumatological Hx Musculoskeletal Disorders: No Hx Falls: No - Gastrointestinal Hx Gastrointestinal Disorders: Yes (GASTRITIS,APPENDICITIS) - Genitourinary/Gynecological Hx Genitourinary Disorders: No - Psychiatric Hx Psychophysiologic Disorder: Yes Hx Substance Use: Yes (cocaine, marijuana) Other/Comment: alcohol abuse - Past Surgical History Past Surgical History: No Previous - Surgical History Hx Appendectomy: Yes Other/Comment: 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12 - Anesthesia Hx Anesthesia: Yes Hx Anesthesia Reactions: No Hx Malignant Hyperthermia: No - Suicidal Assessment Feels Threatened In Home Enviroment: No Family/Social History - Physician Review Nursing Documentation Reviewed: Yes Family/Social History: No Known Family HX Smoking Status: Current Some Days Smoker Hx Alcohol Use: Yes (etoh 1 pint /day, whiskey or vodka) Hx Substance Use: Yes (cocaine, marijuana) Hx Substance Use Treatment: No Allergies/Home Meds Allergies/Adverse Reactions: Allergies No Known Allergies Allergy (Verified 12/26/17 22:23) Home Medications: Home Meds Medication Instructions Recorded Confirmed Unobtainable 12/21/17 12/26/17 Review of Systems - Physician Review All systems were reviewed & negative as marked: Yes - Review of Systems Constitutional: absent: Fevers, Night Sweats Gastrointestinal: absent: Abdominal Pain, Diarrhea, Nausea, Vomiting Neurological: absent: Headache, Dizziness Psychiatric: Anxiety, Depression, Suicidal Ideation Physical Exam Vital Signs Reviewed: Yes Vital Signs Pulse Resp BP Pulse Ox 12/27/17 02:26 81 17 104/59 L 98 12/26/17 22:19 99 H 18 125/75 97 Pain Distress: None Mental Status: Positive for: Alert and Oriented X 3, Agitated - Systems Exam Head: Present: Atraumatic, Normocephalic Pupils: Present: PERRL Extroacular Muscles: Present: EOMI Conjunctiva: Present: Normal Mouth: Present: Moist Mucous Membranes Neck: Present: Normal Range of Motion Respiratory/Chest: Present: Clear to Auscultation, Good Air Exchange. No: Respiratory Distress, Accessory Muscle Use Cardiovascular: Present: Regular Rate and Rhythm, Normal S1, S2. No: Murmurs Abdomen: Present: Normal Bowel Sounds. No: Tenderness, Distention, Peritoneal Signs Back: Present: Normal Inspection Upper Extremity: Present: Other (multiple superficial linear abrasion laceration to left forearm) Lower Extremity: Present: Normal Inspection. No: Edema Neurological: Present: GCS=15, CN II-XII Intact, Speech Normal Skin: Present: Warm, Dry, Normal Color. No: Rashes Psychiatric: Present: Alert, Oriented x 3, Anxious, Agitated, Depressed Mood, Suicidal Ideation, Intoxicated Medical Decision Making ED Course and Treatment: 12/26/17 22:19 Impression: 27 year old male with depression, anxiety, suicidal ideation thoughts, and intoxication. Physical exam shows patient has multiple superficial abrasion lacerations to left forearm. Plan: -- EKG -- Chest X-ray -- Labs -- Ativan -- Reassess and disposition Prior Visits: Notes and results from previous visits were reviewed. Patient was last seen in the emergency department on 12/21/2017 for alcohol withdrawal. Patient was admitted. Progress Notes: 12/26/17 23:50 Patient was uncooperative in the emergency department. Attempted to leave his stretcher saying he wants to leave. Patient extremely agitated. Will sedate for his own protection. EKG shows NSR at 96 BPM with incomplete RBBB. Interpreted by me. 12/27/17 00:18 CXR Impression: As read by me, no acute processes. - Lab Interpretations Lab Results: 12/26/17 22:30 12/26/17 22:30 Lab Results 12/26/17 22:30: Alcohol, Quantitative 249 H 12/26/17 22:30: Salicylates < 1 L, Acetaminophen < 10.0 L 12/26/17 22:30: Urine Opiates Screen Negative, Urine Methadone Screen Negative, Ur Barbiturates Screen Negative, Ur Phencyclidine Scrn Negative, Ur Amphetamines Screen Negative, U Benzodiazepines Scrn Positive, U Oth Cocaine Metabols Positive H, U Cannabinoids Screen Positive H 12/26/17 22:30: Sodium 150 H, Potassium 3.7, Chloride 112 H, Carbon Dioxide 23, Anion Gap 18, BUN 10, Creatinine 0.8, Est GFR ( Amer) > 60, Est GFR (Non- Af Amer) > 60, Random Glucose 93, Calcium 10.2, Total Bilirubin 0.2, AST 49, ALT 72 H, Alkaline Phosphatase 75, Total Protein 7.7, Albumin 4.5, Globulin 3.2 , Albumin/Globulin Ratio 1.4 12/26/17 22:30: WBC 9.5 D, RBC 4.36, Hgb 14.8, Hct 43.6, MCV 100.0, MCH 33.9, MCHC 33.9, RDW 12.7, Plt Count 233, MPV 10.4, Gran % 47.5 L, Lymph % (Auto) 41.5 H, [place] % (Auto) 7.0 H, Eos % (Auto) 3.4, Baso % (Auto) 0.6, Gran # 4.51, Lymph # (Auto) 3.9 H, [place] # (Auto) 0.7 H, Eos # (Auto) 0.3, Baso # (Auto) 0.06 I have reviewed the lab results: Yes - RAD Interpretation Radiology Orders: 12/26/17 22:15 CHEST PORTABLE [RAD] Stat - Medication Orders Current Medication Orders: Discontinued Medications Lorazepam (Ativan) 2 mg IM STAT STA Stop: 12/26/17 22:16 Last Admin: 12/26/17 22:51 Dose: 2 mg IM Administration Charges Document 12/26/17 22:51 IT (Rec: 12/26/17 22:52 IT [id number]) Injection Site MAR Injection Site Left Deltoid Charges for Administration # of IM Administrations 1 Ziprasidone (Geodon Inj) 20 mg IM ONCE STA Stop: 02/17/18 23:48 Last Admin: 12/27/17 00:03 Dose: 20 mg IM Administration Charges Document 12/27/17 00:03 IT (Rec: 12/27/17 00:03 IT [id number]) Injection Site MAR Injection Site Right Deltoid Charges for Administration # of IM Administrations 1 - Transfer of Care Patient signed out to Dr:: Candelaria Other: Sobriety/PES evaluation/final disposition - Scribe Statement The provider has reviewed the documentation as recorded by the Stanley Brian Provider Scribe Attestation: All medical record entries made by the Scribe were at my direction and personally dictated by me. I have reviewed the chart and agree that the record accurately reflects my personal performance of the history, physical exam, medical decision making, and the department course for this patient. I have also personally directed, reviewed, and agree with the discharge instructions and disposition. Disposition/Present on Arrival - Present on Arrival Any Indicators Present on Arrival: No History of DVT/PE: No History of Uncontrolled Diabetes: No Urinary Catheter: No History Surgical Site Infection Following: None - Disposition Have Diagnosis and Disposition been Completed?: No Diagnosis: Depression, Suicidal behavior Disposition Time: 07:00 Condition: STABLE Referrals: Nellie Tracy, [Primary Care Provider] - Follow up with primary
[2017-12-26 22:53] LABS: BASO # 0.06 K/mm3 (0.0-2.0); BASO % 0.6 % (0.0-3.0); EOS # 0.3 (0.0-0.7); EOS % 3.4 % (1.5-5.0); GRAN # 4.51 (1.4-6.5); GRAN % 47.5 % (50.0-68.0); HEMOGLOBIN 14.8 g/dL (14.0-18.0); LYMPH # 3.9 (1.2-3.4); LYMPH % 41.5 % (22.0-35.0); MEAN CORPUSCULAR HEMOGLOBIN 33.9 pg (25.0-35.0); MEAN CORPUSCULAR HGB CONC 33.9 g/dl (31.0-37.0); MEAN PLATELET VOLUME 10.4 fl (7.0-11.0); MONO # 0.7 (0.1-0.6); RBC 4.36 10^6/uL (3.5-6.1); RED CELL DISTRIBUTION WIDTH 12.7 % (11.5-14.5); WHITE BLOOD COUNT 9.5 10^3/ul (4.5-11.0)
[2017-12-26 22:56] LABS: ACETAMINOPHEN < 10.0 ug/ml (10.0-20.0); SALICYLATE < 1 mg/dL (2.0-20.0)
[2017-12-26 22:59] LABS: ALB/GLOB RATIO 1.4 (1.1-1.8); ALBUMIN 4.5 g/dL (3.0-4.8); ALT/SGPT 72 U/L (7-56); AST/SGOT 49 U/L (17-59); BLOOD UREA NITROGEN 10 mg/dL (7-21); CALCIUM 10.2 mg/dL (8.4-10.5); GFR AFRICAN-AMERICAN > 60; GFR NON-AFRICAN AMERICAN > 60
[2017-12-26 23:04] LABS: PHENCYCLIDINE, UR NEGATIVE (NEGATIVE)
[2017-12-26 23:07] LABS: BARBITURATES, UR NEGATIVE (NEGATIVE); BENZODIAZEPINES, UR POSITIVE (NEGATIVE); OPIATES, UR NEGATIVE (NEGATIVE)
--- NOTE | 2017-12-27 08:33 | CARD ---
APPROVED REPORT EKG Measurement Heart [id number] <Conclusion> Normal sinus rhythm Incomplete right bundle branch block
--- NOTE | 2017-12-27 09:01 | RAD ---
HISTORY: medical clearance COMPARISON: Comparison chest 12/21/2017 FINDINGS: LUNGS: No active pulmonary disease. PLEURA: No significant pleural effusion identified, no pneumothorax apparent. CARDIOVASCULAR: Normal. OSSEOUS STRUCTURES: No significant abnormalities. VISUALIZED UPPER ABDOMEN: Normal. OTHER FINDINGS: None. IMPRESSION: No active disease.
--- NOTE | 2017-12-27 11:13 | ED PDOC ---
Physical Exam Vital Signs Temp Pulse Resp BP Pulse Ox 12/27/17 05:55 98.2 F 82 17 109/58 L 98 12/27/17 02:26 81 17 104/59 L 98 12/26/17 22:19 99 H 18 125/75 97 Medical Decision Making ED Course and Treatment: 12/27/17 11:10 Patient endorsed to me from previous shift. I re-examined the patient he states that he is currently not suicidal, admits to "getting drunk and cutting my wrists but I dont really want to hurt myself I just act out". He denies tremors or shakes currently. Denies headache or abdominal pain. Denies nausea or vomiting or bloody stools. He has normal speech and steady gait. He is pleasant and conversive in ED, was medically cleared for PES evaluation at 0930 as clinically sober. Patient evaluated by PES and cleared for discharge with follow-up today at [facility] for program, which he agrees to. He has superficial abrasions to left forearm that are not deep, not bleeding, have been cleaned and dressed. NV intact. Not intoxicated, exam not consistent with withdrawal. Risks of noncompliance with follow-up reviewed. I have reviewed his labs and results. He admits to cocaine use last night. Denies chest pain or shortness of breath. Risks reviewed with patient. - Lab Interpretations Lab Results: 12/26/17 22:30 12/26/17 22:30 Lab Results 12/26/17 22:30: Alcohol, Quantitative 249 H 12/26/17 22:30: Salicylates < 1 L, Acetaminophen < 10.0 L 12/26/17 22:30: Urine Opiates Screen Negative, Urine Methadone Screen Negative, Ur Barbiturates Screen Negative, Ur Phencyclidine Scrn Negative, Ur Amphetamines Screen Negative, U Benzodiazepines Scrn Positive, U Oth Cocaine Metabols Positive H, U Cannabinoids Screen Positive H 12/26/17 22:30: Sodium 150 H, Potassium 3.7, Chloride 112 H, Carbon Dioxide 23, Anion Gap 18, BUN 10, Creatinine 0.8, Est GFR ( Amer) > 60, Est GFR (Non- Af Amer) > 60, Random Glucose 93, Calcium 10.2, Total Bilirubin 0.2, AST 49, ALT 72 H, Alkaline Phosphatase 75, Total Protein 7.7, Albumin 4.5, Globulin 3.2 , Albumin/Globulin Ratio 1.4 12/26/17 22:30: WBC 9.5 D, RBC 4.36, Hgb 14.8, Hct 43.6, MCV 100.0, MCH 33.9, MCHC 33.9, RDW 12.7, Plt Count 233, MPV 10.4, Gran % 47.5 L, Lymph % (Auto) 41.5 H, [place] % (Auto) 7.0 H, Eos % (Auto) 3.4, Baso % (Auto) 0.6, Gran # 4.51, Lymph # (Auto) 3.9 H, [place] # (Auto) 0.7 H, Eos # (Auto) 0.3, Baso # (Auto) 0.06 - RAD Interpretation Radiology Orders: 12/26/17 22:15 CHEST PORTABLE [RAD] Stat - Medication Orders Current Medication Orders: Discontinued Medications Lorazepam (Ativan) 2 mg IM STAT STA Stop: 12/26/17 22:16 Last Admin: 12/26/17 22:51 Dose: 2 mg IM Administration Charges Document 12/26/17 22:51 IT (Rec: 12/26/17 22:52 IT [id number]) Injection Site MAR Injection Site Left Deltoid Charges for Administration # of IM Administrations 1 Ziprasidone (Geodon Inj) 20 mg IM ONCE STA Stop: 12/26/17 23:48 Last Admin: 12/27/17 00:03 Dose: 20 mg IM Administration Charges Document 12/27/17 00:03 IT (Rec: 12/27/17 00:03 IT [id number]) Injection Site MAR Injection Site Right Deltoid Charges for Administration # of IM Administrations 1 Disposition/Present on Arrival - Present on Arrival Any Indicators Present on Arrival: No History of DVT/PE: No History of Uncontrolled Diabetes: No Urinary Catheter: No History of Decub. Ulcer: No History Surgical Site Infection Following: None - Disposition Have Diagnosis and Disposition been Completed?: Yes Diagnosis: Depression, Alcohol intoxication, Arm abrasion, Substance abuse Disposition: HOME/ ROUTINE Disposition Time: 11:13 Patient Plan: Discharge Patient Problems: Current Active Problems Problem Status Onset Alcohol intoxication Acute Arm abrasion Acute Depression Acute Suicidal behavior Acute Condition: GOOD Discharge Instructions (ExitCare): Depression, Adult (DC), Alcohol Abuse and Alcoholism (DC), Skin Abrasions (DC) Additional Instructions: Follow-up TODAY as directed and arranged by mental health. For any headaches, any shakiness, any tremors, any chest pain or shortness of breath, any palpitations, any dizziness, any unsteadiness, any bloody urine or stool, any redness or swelling to arm, get rechecked immediately. [facility] - Follow up with primary
[2017-12-27 11:54] VITALS: RESP 18
[2017-12-27 11:56] VITALS: BP 110/66; PULSE 69; TEMP 98; O2SAT 98
== END 2017-12-27 11:55 | disposition home or self-care (01) ==
LOC: ED 21:54
DX: F10.129 Alcohol abuse with intoxication, unspecified (principal); F32.9 Major depressive disorder, single episode, unspecified; F19.10 Other psychoactive substance abuse, uncomplicated; S40.812A Abrasion of left upper arm, initial encounter; X58.XXXA Exposure to other specified factors, initial encounter
CPT/HCPCS: 71045; 80053; 80320; 80324; 80329; 80345; 80346; 80349; 80353; 80358; 80361; 83992; 85025; 90791; 93005; 96372; 99285; J2060; J3486

== ENCOUNTER 2017-12-28 23:45 | Observation (INO) | payer OTHER ==
[2017-12-29 00:03] VITALS: BMI 24.3
--- NOTE | 2017-12-29 00:15 | ED PDOC ---
Arrival/HPI - General Chief Complaint: Alcohol Ingestion Time Seen by Provider: 12/29/17 00:03 Historian: Patient - History of Present Illness Narrative History of Present Illness (Text): 27yoM, who drinks alcohol daily, had 2 pints earlier today, and wants to stop drinking, feels anxious, but denies suicidal/homicidal/hallucinations/nausea/ vomiting/headache/dizziness/sob/chest pain/abdomen pain/numbness/tingling/loss of limb function. 12/29/17 00:12 Symptom Onset: Gradual Symptom Course: Unchanged Activities at Onset: Rest Context: Sitting Past Medical History - Provider Review Nursing Documentation Reviewed: Yes - Travel History Have you recently traveled outside [place] w/in the past 3 mons?: No - Past History Past History: No Previous (alcohol dependent) - Infectious Disease Hx of Infectious Diseases: None - Tetanus Immunization Tetanus Immunization: Unknown - Past Medical History Past Medical History: No Previous - Cardiac Hx Cardiac Disorders: No Hx Hypertension: No - Pulmonary Hx Tuberculosis: No - Neurological HX Cerebrovascular Accident: No Hx Seizures: No - HEENT Hx HEENT Disorder: No - Renal Hx Renal Disorder: No - Endocrine/Metabolic Hx Endocrine Disorders: No - Hematological/Oncological Hx Cancer: No - Integumentary Hx Dermatological Disorder: No - Musculoskeletal/Rheumatological Hx Musculoskeletal Disorders: No Hx Falls: No - Gastrointestinal Hx Gastritis: Yes - Genitourinary/Gynecological Hx Sexually Transmitted Diseases: No - Psychiatric Hx Psychophysiologic Disorder: Yes Hx Substance Use: Yes (cocaine, marijuana) Other/Comment: alcohol abuse - Past Surgical History Past Surgical History: No Previous - Surgical History Hx Appendectomy: Yes - Anesthesia Hx Anesthesia: Yes Hx Anesthesia Reactions: No Hx Malignant Hyperthermia: No - Suicidal Assessment Feels Threatened In Home Enviroment: No Family/Social History - Physician Review Nursing Documentation Reviewed: Yes Family/Social History: Unknown Family HX Smoking Status: Heavy Smoker > 10 Cigarettes Daily Hx Alcohol Use: Yes (etoh 1 pint /day, whiskey or vodka) Hx Substance Use: Yes (cocaine, marijuana) Hx Substance Use Treatment: No Allergies/Home Meds Allergies/Adverse Reactions: Allergies No Known Allergies Allergy (Verified 12/26/17 22:23) Home Medications: Home Meds Medication Instructions Recorded Confirmed No Known Home Med 12/29/17 12/29/17 Review of Systems - Review of Systems Constitutional: Normal Eyes: Normal ENT: Normal Respiratory: Normal Cardiovascular: Normal Gastrointestinal: Normal Genitourinary Male: Normal Musculoskeletal: Normal Skin: Normal Neurological: Normal Endocrine: Normal Hemo/Lymphatic: Normal Psychiatric: Anxiety Physical Exam Vital Signs Reviewed: Yes Vital Signs Temp Pulse Resp BP Pulse Ox 12/29/17 03:28 70 18 121/48 L 98 12/28/17 23:45 98 F 99 H 20 100/53 L 99 Temperature: Afebrile Blood Pressure: Normal Pulse: Regular Respiratory Rate: Normal Appearance: Positive for: Other (anxious) Mental Status: Positive for: Alert and Oriented X 3 - Systems Exam Head: Present: Atraumatic, Normocephalic Pupils: Present: PERRL Extroacular Muscles: Present: EOMI Conjunctiva: Present: Normal Ears: Present: Normal Mouth: Present: Moist Mucous Membranes Pharnyx: Present: Normal Nose (External): Present: Atraumatic Nose (Internal): Present: Normal Inspection Neck: Present: Normal Range of Motion Respiratory/Chest: Present: Clear to Auscultation, Good Air Exchange Cardiovascular: Present: Regular Rate and Rhythm Abdomen: No: Tenderness, Distention, Normal Bowel Sounds, Peritoneal Signs, Rebound, Guarding, McBurney's Point Tender, Rovsing's Sign Present, Hernias, Feeding Tubes, Ostomy Tubes, Mass/Organomegaly, Scars, Other Back: Present: Normal Inspection Upper Extremity: Present: Normal Inspection Lower Extremity: Present: Normal Inspection Neurological: Present: GCS=15, CN II-XII Intact, Speech Normal, Motor Func Grossly Intact Skin: Present: Warm, Normal Color Psychiatric: Present: Alert, Oriented x 3, Anxious. No: Normal Insight, Normal Concentration, Normal Affect, Normal Mood, Agitated, Depressed Mood, Suicidal Ideation, Homicidal Ideation, Delusional, Hallucinations, Intoxicated, Lethargic , Other Medical Decision Making ED Course and Treatment: 12/29/17 00:14 27yoM, who drinks alcohol daily, had 2 pints earlier today, and wants to stop drinking, feels anxious, but denies suicidal/homicidal/hallucinations/nausea/ vomiting/headache/dizziness/sob/chest pain/abdomen pain/numbness/tingling/loss of limb function. no fever temp 98, stable heart rate 99, stable breathing 20, stable blood pressure 100/53, stable oxygen level 99% room air. CXR 12/26/17 no active disease. 12/29/17 01:38 wbc 11.6 hb 15 plts 246 Na 150 AST/ALT 72/70 Etoh 195 Cannabinoids AG 19 Trop < 0.01 ECG NSR, incomplete RBBB similar to 12/26/17. 12/29/17 01:39 12/29/17 03:11 dw medical parasitologist on -call and will admit for alcohol detoxification. 12/29/17 03:[address] Salmeron who stated can admit to med-surg, mg level, banana bag. Reassessment Condition: Improved - Lab Interpretations Lab Results: 12/29/17 00:22 12/29/17 00:22 Lab Results 12/29/17 01:12: Urine Opiates Screen Negative, Urine Methadone Screen Negative, Ur Barbiturates Screen Negative, Ur Phencyclidine Scrn Negative, Ur Amphetamines Screen Negative, U Benzodiazepines Scrn Positive, U Oth Cocaine Metabols Negative, U Cannabinoids Screen Positive H 12/29/17 01:12: Urine Color Yellow, Urine Appearance Clear, Urine pH 6.0, Ur Specific [place] 1.025, Urine Protein Negative, Urine Glucose (UA) Negative, Urine Ketones Trace H, Urine Blood Negative, Urine Nitrate Negative, Urine Bilirubin Negative, Urine Urobilinogen 0.2, Ur Leukocyte Esterase Negative 12/29/17 00:22: Alcohol, Quantitative 195 H 12/29/17 00:22: Salicylates < 1 L, Acetaminophen < 10.0 L 12/29/17 00:22: Sodium 150 H, Potassium 3.9, Chloride 112 H, Carbon Dioxide 19 L , Anion Gap 23 H, BUN 12, Creatinine 0.9, Est GFR ( Amer) > 60, Est GFR ( Non-Af Amer) > 60, Random Glucose 131 H, Calcium 9.1, Total Bilirubin 0.3, AST 72 H D, ALT 70 H, Alkaline Phosphatase 79, Troponin I < 0.01, Total Protein 7.4 , Albumin 4.4, Globulin 3.1, Albumin/Globulin Ratio 1.4 12/29/17 00:22: WBC 11.6 H D, RBC 4.36, Hgb 15.1, Hct 44.3, MCV 101.6, MCH 34.6 , MCHC 34.1, RDW 12.8, Plt Count 246, MPV 10.2, Gran % 51.7, Lymph % (Auto) 40.5 H, [place] % (Auto) 5.1, Eos % (Auto) 2.2, Baso % (Auto) 0.5, Gran # 6.00, Lymph # (Auto) 4.7 H, [place] # (Auto) 0.6, Eos # (Auto) 0.3, Baso # (Auto) 0.06 I have reviewed the lab results: Yes - EKG Interpretation Interpreted by ED Physician: Yes (NSR, incomplete RBBB) Type: 12 lead EKG - Medication Orders Current Medication Orders: Discontinued Medications Chlordiazepoxide (Librium) 25 mg PO STAT STA PRN Reason: Protocol Stop: 12/29/17 00:11 Last Admin: 12/29/17 00:33 Dose: 25 mg Lorazepam (Ativan) 1 mg IVP ONCE ONE PRN Reason: Protocol Stop: 12/29/17 00:33 Last Admin: 12/29/17 00:40 Dose: 1 mg IVP Administration Document 12/29/17 00:40 WILD (Rec: 12/29/17 00:41 WILD [id number]) Charges for Administration # of IVP Administrations 1 Disposition/Present on Arrival - Present on Arrival Any Indicators Present on Arrival: No History of DVT/PE: No History of Uncontrolled Diabetes: No Urinary Catheter: No History of Decub. Ulcer: No History Surgical Site Infection Following: None - Disposition Have Diagnosis and Disposition been Completed?: Yes Diagnosis: Alcohol abuse Disposition: HOSPITALIZED Disposition Time: 03:41 Patient Plan: Admission Condition: STABLE Referrals: Gerardo Mccall MD [Primary Care Provider] - Follow up with primary Forms: [employer] (Khmer)
[2017-12-29 01:05] LABS: BASO # 0.06 K/mm3 (0.0-2.0); BASO % 0.5 % (0.0-3.0); EOS # 0.3 (0.0-0.7); EOS % 2.2 % (1.5-5.0); GRAN % 51.7 % (50.0-68.0); HEMOGLOBIN 15.1 g/dL (14.0-18.0); LYMPH # 4.7 (1.2-3.4); LYMPH % 40.5 % (22.0-35.0); MEAN CELL VOLUME 101.6 fl (80.0-105.0); MEAN CORPUSCULAR HEMOGLOBIN 34.6 pg (25.0-35.0); MEAN CORPUSCULAR HGB CONC 34.1 g/dl (31.0-37.0); MEAN PLATELET VOLUME 10.2 fl (7.0-11.0); MONO # 0.6 (0.1-0.6); MONO % 5.1 % (1.0-6.0); RBC 4.36 10^6/uL (3.5-6.1); RED CELL DISTRIBUTION WIDTH 12.8 % (11.5-14.5); WHITE BLOOD COUNT 11.6 10^3/ul (4.5-11.0)
[2017-12-29 01:08] LABS: ACETAMINOPHEN < 10.0 ug/ml (10.0-20.0); SALICYLATE < 1 mg/dL (2.0-20.0)
[2017-12-29 01:20] LABS: TROPONIN I < 0.01 ng/mL
[2017-12-29 01:32] LABS: ALB/GLOB RATIO 1.4 (1.1-1.8); ALBUMIN 4.4 g/dL (3.0-4.8); ALT/SGPT 70 U/L (7-56); AST/SGOT 72 U/L (17-59); BLOOD UREA NITROGEN 12 mg/dL (7-21); CALCIUM 9.1 mg/dL (8.4-10.5); GFR AFRICAN-AMERICAN > 60; GFR NON-AFRICAN AMERICAN > 60
[2017-12-29 01:36] LABS: URINE BILIRUBIN NEGATIVE (NEGATIVE); URINE BLOOD NEGATIVE (NEGATIVE); URINE GLUCOSE (UA) NEGATIVE (NEGATIVE); URINE LEUKOCYTE ESTERASE NEGATIVE Leu/uL (NEGATIVE); URINE NITRATE NEGATIVE (NEGATIVE); URINE PROTEIN NEGATIVE mg/dL (<30 mg/dL); URINE UROBILINOGEN 0.2 E.U./dL (<1 E.U./dL)
[2017-12-29 01:41] LABS: URINE APPEARANCE CLEAR (CLEAR); URINE COLOR YELLOW (YELLOW)
[2017-12-29 01:51] LABS: PHENCYCLIDINE, UR NEGATIVE (NEGATIVE)
[2017-12-29 02:05] LABS: BARBITURATES, UR NEGATIVE (NEGATIVE); BENZODIAZEPINES, UR POSITIVE (NEGATIVE); OPIATES, UR NEGATIVE (NEGATIVE)
[2017-12-29] MEDS ORDERED: Multivitamin (MVI) 10 ML, Thiamine 100 MG, Folic Acid 1 MG in Sodium Chloride 0.9% 1,00... IV ONE (03:38)
--- NOTE | 2017-12-29 03:38 | CP.PCM.HP ---
<Yves Bettencourt - Last Filed: 12/29/17 03:47> History of Present Illness - History of Present Illness History of Present Illness: Patient is a 27 year old male with a PMHx of EtOH abuse and Depression w/ suicidal ideation who presents with EtoH intoxication. Patient states he drank 2 Pints of Whiskey today, which he admits he does daily. Patient relayed to the ED physician that he would go into withdrawal. Patient denies any fevers, chill , headache, dizziness, SOB, chest pain, palpitations, n/v/d, constipation, abdominal pain, urinary symptoms, depressed mood, homicidal/suicidal ideation, visual/audio/tactile hallucinations. Patient has numerous cuts on his left anterior forearm. He states that sometimes he gets depressed and suicidal which causes him to cut himself. ROS: As stated above PMHx: polysubstance abuse (alcohol, heroin, cocaine) PSHx: right upper extremity surgical repair s/p accident, appendectomy, right ankle surgery Allergies: NKDA Social: smokes 1 ppd, alcohol abuse, marijuana. Denies any other illicit drug use. Per chart, Hx of Coccaine and methamphetamine use. Hos: Last week for EtoH Intoxication/Withdrawal Family history: diabetes Meds: None PMD: Dr. Hector Batres (Hasn't seen him in 2.5 years) Present on Admission - Present on Admission Any Indicators Present on Admission: No Past Patient History - Infectious Disease Hx of Infectious Diseases: None - Tetanus Immunizations Tetanus Immunization: Unknown - Past Social History Smoking Status: Heavy Smoker > 10 Cigarettes Daily - CARDIAC Hx Cardiac Disorders: No Hx Hypertension: No - PULMONARY Hx Tuberculosis: No - NEUROLOGICAL HX Cerebrovascular Accident: No Hx Seizures: No - HEENT Hx HEENT Problems: No - RENAL Hx Chronic Kidney Disease: No - ENDOCRINE/METABOLIC Hx Endocrine Disorders: No - HEMATOLOGICAL/ONCOLOGICAL Hx Cancer: No - INTEGUMENTARY Hx Dermatological Problems: No - MUSCULOSKELETAL/RHEUMATOLOGICAL Hx Musculoskeletal Disorders: No Hx Falls: No - GASTROINTESTINAL Hx Gastritis: Yes - GENITOURINARY/GYNECOLOGICAL Hx Sexually Transmitted Disorders: No - PSYCHIATRIC Hx Psychophysiologic Disorder: Yes Hx Substance Use: Yes (cocaine, marijuana) Other/Comment: alcohol abuse - SURGICAL HISTORY Hx Appendectomy: Yes - ANESTHESIA Hx Anesthesia: Yes Hx Anesthesia Reactions: No Hx Malignant Hyperthermia: No Meds Allergies/Adverse Reactions: Allergies Allergy/AdvReac Type Severity Reaction Status Date / Time No Known Allergies Allergy Verified 12/26/17 22:23 Physical Exam - Constitutional Appears: Unkempt - Head Exam Head Exam: ATRAUMATIC, NORMAL INSPECTION, NORMOCEPHALIC - Eye Exam Eye Exam: EOMI, PERRL. absent: Scleral icterus Pupil Exam: Mydriatic - ENT Exam ENT Exam: Mucous Membranes Moist - Respiratory Exam Respiratory Exam: Clear to Auscultation Bilateral. absent: Accessory Muscle Use - Cardiovascular Exam Cardiovascular Exam: RRR, +S1, +S2 - GI/Abdominal Exam GI & Abdominal Exam: Hyperactive Bowel Sounds, Soft. absent: Tenderness - Extremities Exam Extremities exam: Positive for: normal capillary refill - Neurological Exam Neurological exam: Altered (Lethargic, EtOH Intoxicated ) - Psychiatric Exam Psychiatric exam: Flat Affect - Skin Skin Exam: Normal Color, Warm Additional comments: Numerous cut banks on Left Anterior Forearm. Results - Vital Signs Recent Vital Signs: Last Vital Signs Temp 98 F 12/28/17 23:45 Pulse 70 12/29/17 03:28 Resp 18 12/29/17 03:28 BP 121/48 L 12/29/17 03:28 Pulse Ox 98 12/29/17 03:28 - Labs Result Diagrams: 12/29/17 00:22 12/29/17 00:22 Labs: Laboratory Results - last 24 hr 12/29/17 12/29/17 12/29/17 00:22 00:22 00:22 WBC 11.6 H D RBC 4.36 Hgb 15.1 Hct 44.3 MCV 101.6 MCH 34.6 MCHC 34.1 RDW 12.8 Plt Count 246 MPV 10.2 Gran % 51.7 Lymph % (Auto) 40.5 H [place] % (Auto) 5.1 Eos % (Auto) 2.2 Baso % (Auto) 0.5 Gran # 6.00 Lymph # (Auto) 4.7 H [place] # (Auto) 0.6 Eos # (Auto) 0.3 Baso # (Auto) 0.06 Sodium 150 H Potassium 3.9 Chloride 112 H Carbon Dioxide 19 L Anion Gap 23 H BUN 12 Creatinine 0.9 Est GFR ( Amer) > 60 Est GFR (Non-Af Amer) > 60 Random Glucose 131 H Calcium 9.1 Total Bilirubin 0.3 AST 72 H D ALT 70 H Alkaline Phosphatase 79 Troponin I < 0.01 Total Protein 7.4 Albumin 4.4 Globulin 3.1 Albumin/Globulin Ratio 1.4 Urine Color Urine Appearance Urine pH Ur Specific [place] Urine Protein Urine Glucose (UA) Urine Ketones Urine Blood Urine Nitrate Urine Bilirubin Urine Urobilinogen Ur Leukocyte Esterase Salicylates < 1 L Urine Opiates Screen Urine Methadone Screen Acetaminophen < 10.0 L Ur Barbiturates Screen Ur Phencyclidine Scrn Ur Amphetamines Screen U Benzodiazepines Scrn U Oth Cocaine Metabols U Cannabinoids Screen Alcohol, Quantitative 12/29/17 12/29/17 12/29/17 00:22 01:12 01:12 WBC RBC Hgb Hct MCV MCH MCHC RDW Plt Count MPV Gran % Lymph % (Auto) [place] % (Auto) Eos % (Auto) Baso % (Auto) Gran # Lymph # (Auto) [place] # (Auto) Eos # (Auto) Baso # (Auto) Sodium Potassium Chloride Carbon Dioxide Anion Gap BUN Creatinine Est GFR ( Amer) Est GFR (Non-Af Amer) Random Glucose Calcium Total Bilirubin AST ALT Alkaline Phosphatase Troponin I Total Protein Albumin Globulin Albumin/Globulin Ratio Urine Color Yellow Urine Appearance Clear Urine pH 6.0 Ur Specific [place] 1.025 Urine Protein Negative Urine Glucose (UA) Negative Urine Ketones Trace H Urine Blood Negative Urine Nitrate Negative Urine Bilirubin Negative Urine Urobilinogen 0.2 Ur Leukocyte Esterase Negative Salicylates Urine Opiates Screen Negative Urine Methadone Screen Negative Acetaminophen Ur Barbiturates Screen Negative Ur Phencyclidine Scrn Negative Ur Amphetamines Screen Negative U Benzodiazepines Scrn Positive U Oth Cocaine Metabols Negative U Cannabinoids Screen Positive H Alcohol, Quantitative 195 H Assessment & Plan - Assessment and Plan (Free Text) Assessment: 27 year old male with a PMHx of EtOH abuse and Depression w/ suicidal ideation who presents with EtoH intoxication. Plan: EtoH Intoxication/Withdrawal Banana Bag started in ED. Ativan in ED. Patient refused Librium CIWA protocol Librium 50 Q8 Ativan 2 Q4 PRN Seizure precautions Anion Gap (19) Metabolic Acidosis/Hypernatremia: Secondary to EtoH Intoxication D5 in NS @ 100 Hx of Depression with Suicidal Ideation/nonsuicidal self-injury disorder. Psych Consult (Dr. Oshea) Proph Protonix/SCD's Patient discussed with Attending Yves Bettencourt, PGY1 <Peyman Salmeron - Last Filed: 12/29/17 07:23> Results - Vital Signs Recent Vital Signs: Last Vital Signs Temp 98.5 F 12/29/17 05:00 Pulse 66 12/29/17 05:00 Resp 21 12/29/17 05:00 BP 114/74 12/29/17 05:00 Pulse Ox 98 12/29/17 03:28 - Labs Result Diagrams: 12/29/17 00:22 12/29/17 00:22 Attending/Attestation - Attestation I have personally seen and examined this patient.: Yes I have fully participated in the care of the patient.: Yes I have reviewed all pertinent clinical information: Yes Notes (Text): 12/29/17 07:22 Patient was seen when he was in 362-01. Agree with history , physical examination , assessment and plan. Left forearm has multiple cuts on volar aspect. Spoke to mother as per whom he is at risk of his life. Will get 1:1 watch and psych consult also.
[2017-12-29] MEDS ORDERED: Folic Acid 1 MG, Thiamine 100 MG, Multivitamin (MVI) 10 ML in Dextrose 5% In Water 1,00... IV SCH (04:00)
[2017-12-29] MEDS: Pantoprazole 40 mg EC Tab PO SCH (06:07)
[2017-12-29 08:07] LABS: BASO # 0.05 K/mm3 (0.0-2.0); BASO % 0.7 % (0.0-3.0); EOS # 0.3 (0.0-0.7); EOS % 3.5 % (1.5-5.0); GRAN # 3.11 (1.4-6.5); GRAN % 43.4 % (50.0-68.0); LYMPH # 3.3 (1.2-3.4); LYMPH % 45.6 % (22.0-35.0); MEAN CELL VOLUME 101.3 fl (80.0-105.0); MEAN CORPUSCULAR HEMOGLOBIN 34.3 pg (25.0-35.0); MEAN CORPUSCULAR HGB CONC 33.9 g/dl (31.0-37.0); MEAN PLATELET VOLUME 9.9 fl (7.0-11.0); MONO # 0.5 (0.1-0.6); MONO % 6.8 % (1.0-6.0); RBC 3.82 10^6/uL (3.5-6.1); RED CELL DISTRIBUTION WIDTH 12.7 % (11.5-14.5); WHITE BLOOD COUNT 7.2 10^3/ul (4.5-11.0)
[2017-12-29 08:23] LABS: HEMOGLOBIN 13.1 g/dL (14.0-18.0)
[2017-12-29] MEDS ORDERED: Levalbuterol 0.63 MG/3 ML Inhal Soln UD IH PRN (08:39)
[2017-12-29 09:21] LABS: ALB/GLOB RATIO 1.3 (1.1-1.8); ALBUMIN 3.5 g/dL (3.0-4.8); ALT/SGPT 81 U/L (7-56); AST/SGOT 80 U/L (17-59); BLOOD UREA NITROGEN 12 mg/dL (7-21); CALCIUM 8.5 mg/dL (8.4-10.5); GFR AFRICAN-AMERICAN > 60; GFR NON-AFRICAN AMERICAN > 60; MAGNESIUM 1.7 mg/dL (1.7-2.2)
--- NOTE | 2017-12-29 15:31 | CON ---
DATE: IDENTIFYING INFORMATION: The patient is a 27-year-old single white male with a history of severe alcohol abuse, who is now being treated for alcohol abuse. HISTORY OF PRESENT ILLNESS: The patient reportedly was depressed and expressing suicidal ideation under the influence of alcohol. Reportedly, he has drank 2 pints of whisky on the day of his admission and indicating he drinks both whisky and vodka regularly and heavily for a number of months. He also had numerous cuts on his left anterior forearm, which he indicated early he does at times when he gets depressed. His past medical history is positive for alcohol, heroin and cocaine, although he tells me he only abuses marijuana. The patient's electronic medical chart is replete with a number of emergency room visits and hospitalizations for alcohol abuse. The patient indicates he is trying to get into a [facility]. The patient is a [place]. He dropped out of high school in a senior year and began working at several [employer] establishments. 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 He did have a relationship of 5 years with broke up because they mutually disinterested in one another. He has never been . He is a middle child of 6 children. His parents are , with his father living in [place] presently. His youngest sister has had a problem with drugs. He denied other familial psychiatric history. The patient is presently being treated with Librium 50 mg q. 8 hours schedule and Ativan 2 mg IV push q. 4 hours p.r.n. along with multivitamins. I have asked the Social Work to assist the patient in going to the rehab that he has started to work on. The patient denies present suicidality or psychotic ideation or homicidality, but he is somewhat lethargic and there is a detox regimen. DIAGNOSES: Polysubstance abuse, alcohol intoxication. Patrice Oshea MD/ PhD
[2017-12-29] MEDS: Dextrose 5%/0.9% NS 1,000 ML IV SCH (17:06)
[2017-12-30] MEDS: Dextrose 5%/0.9% NS 1,000 ML IV SCH ×2 (01:49→10:08)
--- NOTE | 2017-12-30 02:45 | CARD ---
APPROVED REPORT EKG Measurement Heart [id number] <Conclusion> Normal sinus rhythm Incomplete right bundle branch block Borderline ECG
[2017-12-30] MEDS: Pantoprazole 40 mg EC Tab PO SCH (06:30)
[2017-12-30 06:54] LABS: BASO # 0.04 K/mm3 (0.0-2.0); BASO % 0.6 % (0.0-3.0); EOS # 0.2 (0.0-0.7); EOS % 3.2 % (1.5-5.0); GRAN # 3.62 (1.4-6.5); HEMOGLOBIN 13.5 g/dL (14.0-18.0); LYMPH # 2.9 (1.2-3.4); LYMPH % 39.4 % (22.0-35.0); MEAN CELL VOLUME 100.5 fl (80.0-105.0); MEAN CORPUSCULAR HEMOGLOBIN 32.8 pg (25.0-35.0); MEAN CORPUSCULAR HGB CONC 32.7 g/dl (31.0-37.0); MEAN PLATELET VOLUME 10.4 fl (7.0-11.0); MONO # 0.5 (0.1-0.6); MONO % 6.8 % (1.0-6.0); RBC 4.11 10^6/uL (3.5-6.1); RED CELL DISTRIBUTION WIDTH 12.6 % (11.5-14.5); WHITE BLOOD COUNT 7.2 10^3/ul (4.5-11.0)
[2017-12-30 07:08] LABS: ALB/GLOB RATIO 1.3 (1.1-1.8); ALBUMIN 3.5 g/dL (3.0-4.8); ALT/SGPT 76 U/L (7-56); AST/SGOT 63 U/L (17-59); BLOOD UREA NITROGEN 12 mg/dL (7-21); CALCIUM 9.3 mg/dL (8.4-10.5); GFR AFRICAN-AMERICAN > 60; GFR NON-AFRICAN AMERICAN > 60
[2017-12-30 08:10] VITALS: BP 97/60; RESP 17; TEMP 97.6; O2SAT 99
[2017-12-30 14:08] VITALS: PULSE 88
--- NOTE | 2017-12-30 18:51 | CP.PCM.DIS ---
<Ronen Daniels - Last Filed: 12/30/17 18:47> Provider - Provider Date of Admission: 12/29/17 03:39 Attending physician: Kip Zendejas MD Primary care physician: Gerardo Mccall MD Consults: Psych: Daoy Time Spent in preparation of Discharge (in minutes): 41 Hospital Course - Lab Results Lab Results: Most Recent Lab Values WBC 7.2 10^3/ul (4.5-11.0) 12/30/17 05:40 RBC 4.11 10^6/uL (3.5-6.1) 12/30/17 05:40 Hgb 13.5 g/dL (14.0-18.0) L 12/30/17 05:40 Hct 41.3 % (42.0-52.0) L 12/30/17 05:40 MCV 100.5 fl (80.0-105.0) 12/30/17 05:40 MCH 32.8 pg (25.0-35.0) 12/30/17 05:40 MCHC 32.7 g/dl (31.0-37.0) 12/30/17 05:40 RDW 12.6 % (11.5-14.5) 12/30/17 05:40 Plt Count 203 10^3/uL (120.0-450.0) 12/30/17 05:40 MPV 10.4 fl (7.0-11.0) 12/30/17 05:40 Gran % 50.0 % (50.0-68.0) 12/30/17 05:40 Lymph % (Auto) 39.4 % (22.0-35.0) H 12/30/17 05:40 [place] % (Auto) 6.8 % (1.0-6.0) H 12/30/17 05:40 Eos % (Auto) 3.2 % (1.5-5.0) 12/30/17 05:40 Baso % (Auto) 0.6 % (0.0-3.0) 12/30/17 05:40 Gran # 3.62 (1.4-6.5) 12/30/17 05:40 Lymph # (Auto) 2.9 (1.2-3.4) 12/30/17 05:40 [place] # (Auto) 0.5 (0.1-0.6) 12/30/17 05:40 Eos # (Auto) 0.2 (0.0-0.7) 12/30/17 05:40 Baso # (Auto) 0.04 K/mm3 (0.0-2.0) 12/30/17 05:40 Sodium 144 mmol/L (132-148) 12/30/17 05:40 Potassium 3.9 mmol/L (3.6-5.0) 12/30/17 05:40 Chloride 108 mmol/L (98-107) H 12/30/17 05:40 Carbon Dioxide 25 mmol/L (21-33) 12/30/17 05:40 Anion Gap 14 (10-20) 12/30/17 05:40 BUN 12 mg/dL (7-21) 12/30/17 05:40 Creatinine 0.8 mg/dl (0.8-1.5) 12/30/17 05:40 Est GFR ( Amer) > 60 12/30/17 05:40 Est GFR (Non-Af Amer) > 60 12/30/17 05:40 Random Glucose 99 mg/dL (70-110) 12/30/17 05:40 Calcium 9.3 mg/dL (8.4-10.5) 12/30/17 05:40 Magnesium 1.7 mg/dL (1.7-2.2) 12/29/17 08:05 Total Bilirubin 0.3 mg/dL (0.2-1.3) 12/30/17 05:40 AST 63 U/L (17-59) H D 12/30/17 05:40 ALT 76 U/L (7-56) H 12/30/17 05:40 Alkaline Phosphatase 73 U/L (38-126) 12/30/17 05:40 Troponin I < 0.01 ng/mL 12/29/17 00:22 Total Protein 6.2 g/dL (5.8-8.3) 12/30/17 05:40 Albumin 3.5 g/dL (3.0-4.8) 12/30/17 05:40 Globulin 2.7 gm/dL 12/30/17 05:40 Albumin/Globulin Ratio 1.3 (1.1-1.8) 12/30/17 05:40 Urine Color Yellow (YELLOW) 12/29/17 01:12 Urine Appearance Clear (CLEAR) 12/29/17 01:12 Urine pH 6.0 (4.7-8.0) 12/29/17 01:12 Ur Specific [place] 1.025 (1.005-1.035) 12/29/17 01:12 Urine Protein Negative mg/dL (<30 mg/dL) 12/29/17 01:12 Urine Glucose (UA) Negative mg/dL (NEGATIVE) 12/29/17 01:12 Urine Ketones Trace mg/dL (NEGATIVE) H 12/29/17 01:12 Urine Blood Negative (NEGATIVE) 12/29/17 01:12 Urine Nitrate Negative (NEGATIVE) 12/29/17 01:12 Urine Bilirubin Negative (NEGATIVE) 12/29/17 01:12 Urine Urobilinogen 0.2 E.U./dL (<1 E.U./dL) 12/29/17 01:12 Ur Leukocyte Esterase Negative Kiersten/uL (NEGATIVE) 12/29/17 01:12 Salicylates < 1 mg/dL (2.0-20.0) L 12/29/17 00:22 Urine Opiates Screen Negative (NEGATIVE) 12/29/17 01:12 Urine Methadone Screen Negative (NEGATIVE) 12/29/17 01:12 Acetaminophen < 10.0 ug/ml (10.0-20.0) L 12/29/17 00:22 Ur Barbiturates Screen Negative (NEGATIVE) 12/29/17 01:12 Ur Phencyclidine Scrn Negative (NEGATIVE) 12/29/17 01:12 Ur Amphetamines Screen Negative (NEGATIVE) 12/29/17 01:12 U Benzodiazepines Scrn Positive (NEGATIVE) 12/29/17 01:12 U Oth Cocaine Metabols Negative (NEGATIVE) 12/29/17 01:12 U Cannabinoids Screen Positive (NEGATIVE) H 12/29/17 01:12 Alcohol, Quantitative 195 mg/dL (0-10) H 12/29/17 00:22 - Hospital Course Hospital Course: 27 year old male with a past medical history significant for polysubstance abuse who presented for alcohol intoxication and depression with self mutilation to left anterior forearm. Patient stated that he drank two pints of whiskey and cut himself. Patient was placed on 1:1 observation and psych was consulted, who recommended substance abuse cessation and for patient to continue with his efforts to get into detox program. Patient was placed on scheduled lirbium and as needed ativan, along with banana bag IV, for alcohol withdrawal. Patient had Q4 CIWA assessments and aspiration, fall and seizure precautions. Patient was found to be hypernatremic to 150 and this resolved with IVF. Patient was HDS and without signs/symptoms of alcohol withdrawal. He was discharged on 12/30/17 with prescriptions for folic acid, thiamine and MV and with instructions to complete process of getting into detox program. - Date & Time of H&P Date of H&P: 12/29/17 Time of H&P: 03:38 Discharge Exam - Head Exam Head Exam: ATRAUMATIC, NORMAL INSPECTION, NORMOCEPHALIC - Eye Exam Eye Exam: EOMI, Normal appearance, PERRL - Neck Exam Neck exam: Full Rom, Normal Inspection - Respiratory Exam Respiratory Exam: Clear to PA & Lateral, NORMAL BREATHING PATTERN, UNREMARKABLE - Cardiovascular Exam Cardiovascular Exam: REGULAR RHYTHM, RRR, +S1, +S2 - GI/Abdominal Exam GI & Abdominal Exam: Normal Bowel Sounds, Soft, Unremarkable. absent: Tenderness - Extremities Exam Extremities exam: full ROM, normal capillary refill, pedal pulses present Additional comments: Multiple superficial lacerations to anterior left forearm with no signs of clinical infection - Neurological Exam Neurological exam: Alert, CN II-XII Intact, Normal Gait, Oriented x3, Reflexes Normal - Psychiatric Exam Psychiatric exam: Normal Affect, Normal Mood Additional comments: Denies suicidal or homicidal ideation - Skin Skin Exam: Dry, Intact, Normal Color, Warm Discharge Plan - Discharge Medications Prescriptions: Folic Acid 1 mg PO DAILY #14 tab Multivitamin [Multivitamins] 1 each PO DAILY #14 capsule Thiamine [Vitamin B1 Tab] 100 mg PO DAILY #14 tab - Follow Up Plan Condition: STABLE Disposition: HOME/ ROUTINE Instructions: Alcohol Use - When Is Drinking a Problem?, Drug Abuse and Drug Addiction (DC), Alcohol Withdrawal, Alcohol Abuse and Alcoholism (DC) Additional Instructions: Please follow up with your primary care doctor within one week Please take all medications as prescribed Please continue to work on placement in detox program as discussed If your symptoms should worsen or persist, please seek emergency medical attention Referrals: Gerardo Mccall MD [Primary Care Provider] - <Kip Zendejas - Last Filed: 12/31/17 15:03> Provider - Provider Date of Admission: 12/29/17 03:39 Attending physician: Kip Zendejas MD Primary care physician: Gerardo Mccall MD Hospital Course - Lab Results Lab Results: Most Recent Lab Values WBC 7.2 10^3/ul (4.5-11.0) 12/30/17 05:40 RBC 4.11 10^6/uL (3.5-6.1) 12/30/17 05:40 Hgb 13.5 g/dL (14.0-18.0) L 12/30/17 05:40 Hct 41.3 % (42.0-52.0) L 12/30/17 05:40 MCV 100.5 fl (80.0-105.0) 12/30/17 05:40 MCH 32.8 pg (25.0-35.0) 12/30/17 05:40 MCHC 32.7 g/dl (31.0-37.0) 12/30/17 05:40 RDW 12.6 % (11.5-14.5) 12/30/17 05:40 Plt Count 203 10^3/uL (120.0-450.0) 12/30/17 05:40 MPV 10.4 fl (7.0-11.0) 12/30/17 05:40 Gran % 50.0 % (50.0-68.0) 12/30/17 05:40 Lymph % (Auto) 39.4 % (22.0-35.0) H 12/30/17 05:40 [place] % (Auto) 6.8 % (1.0-6.0) H 12/30/17 05:40 Eos % (Auto) 3.2 % (1.5-5.0) 12/30/17 05:40 Baso % (Auto) 0.6 % (0.0-3.0) 12/30/17 05:40 Gran # 3.62 (1.4-6.5) 12/30/17 05:40 Lymph # (Auto) 2.9 (1.2-3.4) 12/30/17 05:40 [place] # (Auto) 0.5 (0.1-0.6) 12/30/17 05:40 Eos # (Auto) 0.2 (0.0-0.7) 12/30/17 05:40 Baso # (Auto) 0.04 K/mm3 (0.0-2.0) 12/30/17 05:40 Sodium 144 mmol/L (132-148) 12/30/17 05:40 Potassium 3.9 mmol/L (3.6-5.0) 12/30/17 05:40 Chloride 108 mmol/L (98-107) H 12/30/17 05:40 Carbon Dioxide 25 mmol/L (21-33) 12/30/17 05:40 Anion Gap 14 (10-20) 12/30/17 05:40 BUN 12 mg/dL (7-21) 12/30/17 05:40 Creatinine 0.8 mg/dl (0.8-1.5) 12/30/17 05:40 Est GFR ( Amer) > 60 12/30/17 05:40 Est GFR (Non-Af Amer) > 60 12/30/17 05:40 Random Glucose 99 mg/dL (70-110) 12/30/17 05:40 Calcium 9.3 mg/dL (8.4-10.5) 12/30/17 05:40 Magnesium 1.7 mg/dL (1.7-2.2) 12/29/17 08:05 Total Bilirubin 0.3 mg/dL (0.2-1.3) 12/30/17 05:40 AST 63 U/L (17-59) H D 12/30/17 05:40 ALT 76 U/L (7-56) H 12/30/17 05:40 Alkaline Phosphatase 73 U/L (38-126) 12/30/17 05:40 Troponin I < 0.01 ng/mL 12/29/17 00:22 Total Protein 6.2 g/dL (5.8-8.3) 12/30/17 05:40 Albumin 3.5 g/dL (3.0-4.8) 12/30/17 05:40 Globulin 2.7 gm/dL 12/30/17 05:40 Albumin/Globulin Ratio 1.3 (1.1-1.8) 12/30/17 05:40 Urine Color Yellow (YELLOW) 12/29/17 01:12 Urine Appearance Clear (CLEAR) 12/29/17 01:12 Urine pH 6.0 (4.7-8.0) 12/29/17 01:12 Ur Specific [place] 1.025 (1.005-1.035) 12/29/17 01:12 Urine Protein Negative mg/dL (<30 mg/dL) 12/29/17 01:12 Urine Glucose (UA) Negative mg/dL (NEGATIVE) 12/29/17 01:12 Urine Ketones Trace mg/dL (NEGATIVE) H 12/29/17 01:12 Urine Blood Negative (NEGATIVE) 12/29/17 01:12 Urine Nitrate Negative (NEGATIVE) 12/29/17 01:12 Urine Bilirubin Negative (NEGATIVE) 12/29/17 01:12 Urine Urobilinogen 0.2 E.U./dL (<1 E.U./dL) 12/29/17 01:12 Ur Leukocyte Esterase Negative Kiersten/uL (NEGATIVE) 12/29/17 01:12 Salicylates < 1 mg/dL (2.0-20.0) L 12/29/17 00:22 Urine Opiates Screen Negative (NEGATIVE) 12/29/17 01:12 Urine Methadone Screen Negative (NEGATIVE) 12/29/17 01:12 Acetaminophen < 10.0 ug/ml (10.0-20.0) L 12/29/17 00:22 Ur Barbiturates Screen Negative (NEGATIVE) 12/29/17 01:12 Ur Phencyclidine Scrn Negative (NEGATIVE) 12/29/17 01:12 Ur Amphetamines Screen Negative (NEGATIVE) 12/29/17 01:12 U Benzodiazepines Scrn Positive (NEGATIVE) 12/29/17 01:12 U Oth Cocaine Metabols Negative (NEGATIVE) 12/29/17 01:12 U Cannabinoids Screen Positive (NEGATIVE) H 12/29/17 01:12 Alcohol, Quantitative 195 mg/dL (0-10) H 12/29/17 00:22 Attending/Attestation - Attestation I have personally seen and examined this patient.: Yes I have fully participated in the care of the patient.: Yes I have reviewed all pertinent clinical information, including history, physical exam and plan: Yes Notes (Text): 12/31/17 15:01 Patient was seen and examined with medical office technology instructor. Agreed with assessment and plan. 27 yrs old male with H/O alcohol abuse, denies suicidal ideation at this time.Patient was evaluated by Psychiatry and was cleared for discharge. There is no sign of alcohol withdrawal at the time of discharge.Patient is alert ,awake and oriented.He is ambulatory. Issue of ongoing alcohol abuse was discussed in detail with him Management plan was discussed in detail with patient. Education was provided.
== END 2017-12-30 15:47 | disposition home or self-care (01) ==
LOC: ED 23:45 → ERH 12-29 03:39 → 3RNO 12-29 05:05
PROVIDERS: ADMIT Internal Medicine; ATTEND Internal Medicine
DX: F10.229 Alcohol dependence with intoxication, unspecified (principal); F32.9 Major depressive disorder, single episode, unspecified; F14.10 Cocaine abuse, uncomplicated; F12.10 Cannabis abuse, uncomplicated; F11.10 Opioid abuse, uncomplicated; F17.210 Nicotine dependence, cigarettes, uncomplicated; E87.0 Hyperosmolality and hypernatremia; E87.2 Acidosis; Y90.6 Blood alcohol level of 120-199 mg/100 ml; S51.812A Laceration without foreign body of left forearm, initial encounter; X78.9XXA Intentional self-harm by unspecified sharp object, initial encounter
CPT/HCPCS: 36415; 80053; 80320; 80324; 80329; 80345; 80346; 80349; 80353; 80358; 80361; 81003; 83735; 83992; 84484; 85025; 93005; 94640; 96374; 96375; 96376; 99285; G0378; J2060; J3411; J7040; J7042

== ENCOUNTER 2018-01-10 18:55 | Inpatient (IN) | payer OTHER ==
[2018-01-10 18:56] VITALS: BMI 24.3
[2018-01-10] MEDS ORDERED: Sodium Chloride 0.9% 500 ML IV STA (19:10)
--- NOTE | 2018-01-10 19:19 | ED PDOC ---
Arrival/HPI - General Chief Complaint: Alcohol Ingestion Time Seen by Provider: 01/10/18 19:00 Historian: Patient, Parent - History of Present Illness Narrative History of Present Illness (Text): 27yoM, who has hx of suicidal in the past, with alcohol use daily since last detox, now drank alcohol, having anxiety/panic attack with sob, but denies chest pain/abdomen pain/nausea/vomiting/headache/dizziness/abdomen pain/ thoughts to harm self or others or hallucinations. 01/10/18 19:12 Time/Duration: 24 hours Symptom Onset: Gradual Symptom Course: Unchanged Quality: Other (no pain) Activities at Onset: Rest Context: Sitting Past Medical History - Provider Review Nursing Documentation Reviewed: Yes - Travel History Have you recently traveled outside [place] w/in the past 3 mons?: No - Past History Past History: No Previous (alcohol dependent) - Infectious Disease Hx of Infectious Diseases: None - Tetanus Immunization Tetanus Immunization: Unknown - Past Medical History Past Medical History: No Previous - Cardiac Hx Cardiac Disorders: No - Pulmonary Hx Respiratory Disorders: No - Neurological Hx Neurological Disorder: No - HEENT Hx HEENT Disorder: No - Renal Hx Renal Disorder: No - Endocrine/Metabolic Hx Endocrine Disorders: No - Hematological/Oncological Hx Blood Disorders: No - Integumentary Hx Dermatological Disorder: No - Musculoskeletal/Rheumatological Hx Musculoskeletal Disorders: Yes Hx Falls: No Hx Fractures: Yes - Gastrointestinal Hx Gastrointestinal Disorders: No - Genitourinary/Gynecological Hx Genitourinary Disorders: No - Psychiatric Hx Psychophysiologic Disorder: Yes Hx Anxiety: Yes Hx Depression: Yes Hx Panic Disorder: Yes Hx Substance Use: Yes - Past Surgical History Past Surgical History: No Previous - Surgical History Hx Appendectomy: Yes Hx Musculoskeletal Surgery: Yes Hx Orthopedic Surgery: Yes - Anesthesia Hx Anesthesia: Yes Hx Anesthesia Reactions: No Hx Malignant Hyperthermia: No - Suicidal Assessment Feels Threatened In Home Enviroment: No Family/Social History - Physician Review Nursing Documentation Reviewed: Yes Family/Social History: No Known Family HX Smoking Status: Heavy Smoker > 10 Cigarettes Daily Hx Alcohol Use: Yes Frequency of alcohol use: Daily Hx Substance Use: Yes Hx Substance Use Treatment: No Allergies/Home Meds Allergies/Adverse Reactions: Allergies No Known Allergies Allergy (Verified 01/10/18 19:03) Review of Systems - Review of Systems Constitutional: Normal Eyes: Normal ENT: Normal Respiratory: SOB Cardiovascular: Normal Gastrointestinal: Normal Genitourinary Male: Normal Musculoskeletal: Normal Skin: Normal Endocrine: Normal Hemo/Lymphatic: Normal Psychiatric: Anxiety. absent: Normal, Depression, Suicidal Ideation, Other Physical Exam Vital Signs Reviewed: Yes Vital Signs Temp Pulse Resp BP Pulse Ox 01/10/18 21:17 101 H 20 120/75 98 01/10/18 19:00 98.9 F 93 H 18 129/90 99 Appearance: Positive for: Other (anxious) Pain Distress: None Mental Status: Positive for: Alert and Oriented X 3 - Systems Exam Head: Present: Atraumatic, Normocephalic Pupils: Present: PERRL Extroacular Muscles: Present: EOMI Conjunctiva: Present: Normal Ears: Present: Normal Mouth: Present: Moist Mucous Membranes Pharnyx: Present: Normal Nose (External): Present: Atraumatic Nose (Internal): Present: Normal Inspection Neck: Present: Normal Range of Motion Respiratory/Chest: Present: Clear to Auscultation, Good Air Exchange Cardiovascular: Present: Regular Rate and Rhythm Abdomen: No: Tenderness, Distention, Normal Bowel Sounds, Peritoneal Signs, Rebound, Guarding, McBurney's Point Tender, Rovsing's Sign Present, Hernias, Feeding Tubes, Ostomy Tubes, Mass/Organomegaly, Scars, Other Back: Present: Normal Inspection Upper Extremity: Present: Normal Inspection Lower Extremity: Present: Normal Inspection Neurological: Present: GCS=15, CN II-XII Intact, Speech Normal, Motor Func Grossly Intact Skin: Present: Warm, Normal Color Psychiatric: Present: Alert, Oriented x 3, Normal Insight, Normal Concentration Medical Decision Making ED Course and Treatment: 27yoM, who has hx of suicidal in the past, with alcohol use daily since last detox, now drank alcohol, having anxiety/panic attack with sob, but denies chest pain/abdomen pain/nausea/vomiting/headache/dizziness/abdomen pain/ thoughts to harm self or others or hallucinations. 01/10/18 19:19 CXR no acute. similar to 12/29/17. ECG: NSR, flipped t waves avr, v1 wbc 7.5 hb 15 plts 301 Etoh 277 Trop less than 0.01 pt with hand tremor. pt with anxiety trying to pull out iv thus ativan 1mg, 2mg, 1mg, 50mg librium given. 01/10/18 21:31 01/10/18 21:54 d/w medical microbiologist Florin and Dr. Lanny Wick who stated will admit for alcohol use d/o, pt wanting detoxification. will admit to remote telemetry. Reassessment Condition: Improved - Lab Interpretations Lab Results: 01/10/18 19:20 01/10/18 19:20 Lab Results 01/10/18 20:50: Urine Opiates Screen Negative, Urine Methadone Screen Negative, Ur Barbiturates Screen Negative, Ur Phencyclidine Scrn Negative, Ur Amphetamines Screen No result, U Benzodiazepines Scrn Positive, U Oth Cocaine Metabols Negative, U Cannabinoids Screen Positive H 01/10/18 20:50: Urine Color Yellow, Urine Appearance Clear, Urine pH 6.5, Ur Specific [place] 1.015, Urine Protein Negative, Urine Glucose (UA) Negative, Urine Ketones Negative, Urine Blood Negative, Urine Nitrate Negative, Urine Bilirubin Negative, Urine Urobilinogen 0.2, Ur Leukocyte Esterase Negative 01/10/18 19:20: Alcohol, Quantitative 277 H 01/10/18 19:20: Salicylates < 1 L, Acetaminophen < 10.0 L 01/10/18 19:20: Sodium 148, Potassium 4.0, Chloride 111 H, Carbon Dioxide 21, Anion Gap 20, BUN 18, Creatinine 0.9, Est GFR ( Amer) > 60, Est GFR (Non- Af Amer) > 60, Random Glucose 118 H, Calcium 9.4, Total Bilirubin 0.5, AST 38, ALT 54, Alkaline Phosphatase 96, Troponin I < 0.01, Total Protein 7.8, Albumin 4.3, Globulin 3.5, Albumin/Globulin Ratio 1.2 01/10/18 19:20: WBC 7.5, RBC 4.51, Hgb 15.5 D, Hct 44.6, MCV 98.9, MCH 34.4, MCHC 34.8, RDW 12.9, Plt Count 301, MPV 10.3, Gran % 50.6, Lymph % (Auto) 41.1 H , [place] % (Auto) 5.2, Eos % (Auto) 2.4, Baso % (Auto) 0.7, Gran # 3.78, Lymph # ( Auto) 3.1, [place] # (Auto) 0.4, Eos # (Auto) 0.2, Baso # (Auto) 0.05 I have reviewed the lab results: Yes - RAD Interpretation Radiology Orders: 01/10/18 19:10 CHEST PORTABLE [RAD] Stat Custom Tailor Apprentice: ED Physician (cxr no acute.) - EKG Interpretation Interpreted by ED Physician: Yes (NSR, flipped t waves avr, v1) Type: 12 lead EKG Comparison: Similar to previous EKG (12/29/17.) - Medication Orders Current Medication Orders: Discontinued Medications Chlordiazepoxide (Librium) 50 mg PO STAT STA PRN Reason: Protocol Stop: 01/10/18 20:22 Last Admin: 01/10/18 20:34 Dose: 50 mg Sodium Chloride (Sodium Chloride 0.9%) 500 mls @ 1,000 mls/hr IV .Q30M STA Stop: 01/10/18 19:39 Last Admin: 01/10/18 19:39 Dose: 1,000 mls/hr eMAR Start Stop Document 01/10/18 19:39 SS (Rec: 01/10/18 19:40 SS [id number]) Intravenous Solution Start Date 01/10/18 Start Time 19:39 End Date 01/10/18 End time 20:09 Total Infusion Time 30 Lorazepam (Ativan) 1 mg IM STAT STA Stop: 01/10/18 19:11 Last Admin: 01/10/18 19:37 Dose: 1 mg IM Administration Charges Document 01/10/18 19:37 SS (Rec: 01/10/18 19:39 SS [id number]) Injection Site MAR Injection Site Right Deltoid Charges for Administration # of IM Administrations 1 Lorazepam (Ativan) 1 mg IVP ONCE ONE PRN Reason: Protocol Stop: 01/10/18 20:22 Last Admin: 01/10/18 20:38 Dose: 1 mg IVP Administration Document 01/10/18 20:38 SS (Rec: 01/10/18 20:38 SS [id number]) Charges for Administration # of IVP Administrations 1 Disposition/Present on Arrival - Present on Arrival Any Indicators Present on Arrival: No History of DVT/PE: No History of Uncontrolled Diabetes: No Urinary Catheter: No History of Decub. Ulcer: No History Surgical Site Infection Following: Orthopedic Procedures - Disposition Have Diagnosis and Disposition been Completed?: Yes Diagnosis: Desire for detoxification, Alcohol abuse Disposition: HOSPITALIZED Disposition Time: 21:54 Patient Plan: Admission Condition: IMPROVED [facility] - Follow up with primary Forms: [employer] (Persian)
[2018-01-10 20:11] LABS: BASO # 0.05 K/mm3 (0.0-2.0); BASO % 0.7 % (0.0-3.0); EOS # 0.2 (0.0-0.7); EOS % 2.4 % (1.5-5.0); GRAN # 3.78 (1.4-6.5); GRAN % 50.6 % (50.0-68.0); HEMOGLOBIN 15.5 g/dL (14.0-18.0); LYMPH # 3.1 (1.2-3.4); LYMPH % 41.1 % (22.0-35.0); MEAN CELL VOLUME 98.9 fl (80.0-105.0); MEAN CORPUSCULAR HEMOGLOBIN 34.4 pg (25.0-35.0); MEAN CORPUSCULAR HGB CONC 34.8 g/dl (31.0-37.0); MEAN PLATELET VOLUME 10.3 fl (7.0-11.0); MONO # 0.4 (0.1-0.6); MONO % 5.2 % (1.0-6.0); RBC 4.51 10^6/uL (3.5-6.1); RED CELL DISTRIBUTION WIDTH 12.9 % (11.5-14.5); WHITE BLOOD COUNT 7.5 10^3/ul (4.5-11.0)
[2018-01-10 20:19] LABS: ACETAMINOPHEN < 10.0 ug/ml (10.0-20.0); SALICYLATE < 1 mg/dL (2.0-20.0)
[2018-01-10 20:22] LABS: ALB/GLOB RATIO 1.2 (1.1-1.8); ALBUMIN 4.3 g/dL (3.0-4.8); ALT/SGPT 54 U/L (7-56); AST/SGOT 38 U/L (17-59); BLOOD UREA NITROGEN 18 mg/dL (7-21); CALCIUM 9.4 mg/dL (8.4-10.5); GFR AFRICAN-AMERICAN > 60; GFR NON-AFRICAN AMERICAN > 60
[2018-01-10 20:31] LABS: TROPONIN I < 0.01 ng/mL
[2018-01-10 21:10] LABS: PH,URINE 6.5 (4.7-8.0); URINE BILIRUBIN NEGATIVE (NEGATIVE); URINE BLOOD NEGATIVE (NEGATIVE); URINE GLUCOSE (UA) NEGATIVE (NEGATIVE); URINE LEUKOCYTE ESTERASE NEGATIVE Leu/uL (NEGATIVE); URINE NITRATE NEGATIVE (NEGATIVE); URINE PROTEIN NEGATIVE mg/dL (<30 mg/dL); URINE UROBILINOGEN 0.2 E.U./dL (<1 E.U./dL)
[2018-01-10 21:17] LABS: URINE APPEARANCE CLEAR (CLEAR); URINE COLOR YELLOW (YELLOW)
[2018-01-10 21:39] LABS: BARBITURATES, UR NEGATIVE (NEGATIVE); BENZODIAZEPINES, UR POSITIVE (NEGATIVE); OPIATES, UR NEGATIVE (NEGATIVE); PHENCYCLIDINE, UR NEGATIVE (NEGATIVE)
[2018-01-10 23:50] LABS: MAGNESIUM 2.1 mg/dL (1.7-2.2)
[2018-01-11] MEDS: Folic Acid 1 MG, Thiamine 100 MG, Multivitamin (MVI) 10 ML in Dextrose 5% In Water 1,00... IV SCH ×3 (00:44→21:33)
--- NOTE | 2018-01-11 01:13 | CP.PCM.HP ---
History of Present Illness - History of Present Illness History of Present Illness: Mir Leigh PGY-1 H&P CC: Alcohol intoxication HPI: Patient is a 27 year old male with past medical history that includes polysubstance abuse including ETOH abuse, benzodiazepine, marijuana and depression who presents with alcohol intoxication. Patient reports at 10am on 01/10/2018 patient began drinking whiskey and took a few xanax pills. Patient indicates he drank 1 to 2 pints of whiskey. Patient was recently treated for ETOH withdrawal/intoxication at [facility] [place] on 12/29/2017. Patient indicates multiple episodes of heavy drinking. States he drinks about 2 pints of whiskey a day. He denies chest pain, abdominal pain, nausea, vomiting, fever, chills, palpitations , sweating. Patient reports feeling like he is having panic attacks earlier in day. Reports he has had similar episodes over the past month. He denies LOC, falls, or trauma. 12 point ROS otherwise mentioned in HPI is benign. PMH: polysubstance abuse (alcohol, heroin, cocaine) PSH: right upper extremity surgical repair s/p accident, appendectomy, right ankle surgery SocHx: smokes 1 ppd, alcohol abuse, marijuana. Denies any other illicit drug use. Per chart, Hx of Coccaine and methamphetamine use. Hos: Multiple in past month for EtoH Intoxication/Withdrawal FMH: DM ALL: NKDA Meds: Denies PMD: Dr. Hector Batres Present on Admission - Present on Admission Any Indicators Present on Admission: No Review of Systems - Review of Systems All systems: reviewed and no additional remarkable complaints except (as mentioned in HPI) Past Patient History - Infectious Disease Hx of Infectious Diseases: None - Tetanus Immunizations Tetanus Immunization: Unknown - Past Social History Smoking Status: Heavy Smoker > 10 Cigarettes Daily Alcohol: > 2 Drinks/Day Drugs: Cannabis, Prescription medications - CARDIAC Hx Cardiac Disorders: No - PULMONARY Hx Respiratory Disorders: No - NEUROLOGICAL Hx Neurological Disorder: No - HEENT Hx HEENT Problems: No - RENAL Hx Chronic Kidney Disease: No - ENDOCRINE/METABOLIC Hx Endocrine Disorders: No - HEMATOLOGICAL/ONCOLOGICAL Hx Blood Disorders: No - INTEGUMENTARY Hx Dermatological Problems: No - MUSCULOSKELETAL/RHEUMATOLOGICAL Hx Musculoskeletal Disorders: Yes Hx Fractures: Yes - GASTROINTESTINAL Hx Gastrointestinal Disorders: No - GENITOURINARY/GYNECOLOGICAL Hx Genitourinary Disorders: No - PSYCHIATRIC Hx Psychophysiologic Disorder: Yes Hx Anxiety: Yes Hx Depression: Yes Hx Panic Symptoms: Yes - SURGICAL HISTORY Hx Surgeries: Yes Hx Appendectomy: Yes Hx Musculoskeletal Surgery: Yes Hx Orthopedic Surgery: Yes - ANESTHESIA Hx Anesthesia: Yes Hx Anesthesia Reactions: No Hx Malignant Hyperthermia: No Meds Allergies/Adverse Reactions: Allergies Allergy/AdvReac Type Severity Reaction Status Date / Time No Known Allergies Allergy Verified 01/10/18 19:03 Physical Exam - Constitutional Appears: Non-toxic, No Acute Distress - Head Exam Head Exam: ATRAUMATIC, NORMAL INSPECTION, NORMOCEPHALIC - Eye Exam Eye Exam: EOMI, PERRL Pupil Exam: Mydriatic - ENT Exam ENT Exam: Mucous Membranes Dry - Neck Exam Neck exam: Positive for: Full Rom - Respiratory Exam Respiratory Exam: Clear to Auscultation Bilateral, NORMAL BREATHING PATTERN. absent: Rales, Rhonchi, Wheezes - Cardiovascular Exam Cardiovascular Exam: Tachycardia, +S1, +S2. absent: JVD, Systolic Murmur - GI/Abdominal Exam GI & Abdominal Exam: Normal Bowel Sounds, Soft. absent: Firm, Guarding, Tenderness - Extremities Exam Extremities exam: Positive for: normal inspection, pedal pulses present. Negative for: calf tenderness, pedal edema - Back Exam Back exam: NORMAL INSPECTION. absent: CVA tenderness (L), CVA tenderness (R) - Neurological Exam Neurological exam: Alert, Normal Gait, Oriented x3 Additional comments: motor and sensory grossly intact, able to move all four extremities past midline - Psychiatric Exam Psychiatric exam: Agitated (mild), Anxious (mild) Additional comments: denies suicidal ideation Results - Vital Signs Recent Vital Signs: Last Vital Signs Temp 98 F 01/11/18 00:00 Pulse 77 01/11/18 00:00 Resp 20 01/11/18 00:00 BP 106/62 01/11/18 00:00 Pulse Ox 92 L 01/11/18 00:00 - Labs Result Diagrams: 01/10/18 19:20 01/10/18 19:20 Labs: Laboratory Results - last 24 hr 01/10/18 01/10/18 01/10/18 19:20 19:20 19:20 WBC 7.5 RBC 4.51 Hgb 15.5 D Hct 44.6 MCV 98.9 MCH 34.4 MCHC 34.8 RDW 12.9 Plt Count 301 MPV 10.3 Gran % 50.6 Lymph % (Auto) 41.1 H Gregory % (Auto) 5.2 Eos % (Auto) 2.4 Baso % (Auto) 0.7 Gran # 3.78 Lymph # (Auto) 3.1 Gregory # (Auto) 0.4 Eos # (Auto) 0.2 Baso # (Auto) 0.05 Sodium 148 Potassium 4.0 Chloride 111 H Carbon Dioxide 21 Anion Gap 20 BUN 18 Creatinine 0.9 Est GFR ( Amer) > 60 Est GFR (Non-Af Amer) > 60 Random Glucose 118 H Calcium 9.4 Phosphorus Magnesium Total Bilirubin 0.5 AST 38 ALT 54 Alkaline Phosphatase 96 Troponin I < 0.01 Total Protein 7.8 Albumin 4.3 Globulin 3.5 Albumin/Globulin Ratio 1.2 Urine Color Urine Appearance Urine pH Ur Specific [place] Urine Protein Urine Glucose (UA) Urine Ketones Urine Blood Urine Nitrate Urine Bilirubin Urine Urobilinogen Ur Leukocyte Esterase Salicylates < 1 L Urine Opiates Screen Urine Methadone Screen Acetaminophen < 10.0 L Ur Barbiturates Screen Ur Phencyclidine Scrn Ur Amphetamines Screen U Benzodiazepines Scrn U Oth Cocaine Metabols U Cannabinoids Screen Alcohol, Quantitative 01/10/18 01/10/18 01/10/18 19:20 19:20 20:50 WBC RBC Hgb Hct MCV MCH MCHC RDW Plt Count MPV Gran % Lymph % (Auto) Gregory % (Auto) Eos % (Auto) Baso % (Auto) Gran # Lymph # (Auto) Gregory # (Auto) Eos # (Auto) Baso # (Auto) Sodium Potassium Chloride Carbon Dioxide Anion Gap BUN Creatinine Est GFR ( Amer) Est GFR (Non-Af Amer) Random Glucose Calcium Phosphorus 3.8 Magnesium 2.1 Total Bilirubin AST ALT Alkaline Phosphatase Troponin I Total Protein Albumin Globulin Albumin/Globulin Ratio Urine Color Yellow Urine Appearance Clear Urine pH 6.5 Ur Specific [place] 1.015 Urine Protein Negative Urine Glucose (UA) Negative Urine Ketones Negative Urine Blood Negative Urine Nitrate Negative Urine Bilirubin Negative Urine Urobilinogen 0.2 Ur Leukocyte Esterase Negative Salicylates Urine Opiates Screen Urine Methadone Screen Acetaminophen Ur Barbiturates Screen Ur Phencyclidine Scrn Ur Amphetamines Screen U Benzodiazepines Scrn U Oth Cocaine Metabols U Cannabinoids Screen Alcohol, Quantitative 277 H 01/10/18 20:50 WBC RBC Hgb Hct MCV MCH MCHC RDW Plt Count MPV Gran % Lymph % (Auto) Gregory % (Auto) Eos % (Auto) Baso % (Auto) Gran # Lymph # (Auto) Gregory # (Auto) Eos # (Auto) Baso # (Auto) Sodium Potassium Chloride Carbon Dioxide Anion Gap BUN Creatinine Est GFR ( Amer) Est GFR (Non-Af Amer) Random Glucose Calcium Phosphorus Magnesium Total Bilirubin AST ALT Alkaline Phosphatase Troponin I Total Protein Albumin Globulin Albumin/Globulin Ratio Urine Color Urine Appearance Urine pH Ur Specific [place] Urine Protein Urine Glucose (UA) Urine Ketones Urine Blood Urine Nitrate Urine Bilirubin Urine Urobilinogen Ur Leukocyte Esterase Salicylates Urine Opiates Screen Negative Urine Methadone Screen Negative Acetaminophen Ur Barbiturates Screen Negative Ur Phencyclidine Scrn Negative Ur Amphetamines Screen Negative U Benzodiazepines Scrn Positive U Oth Cocaine Metabols Negative U Cannabinoids Screen Positive H Alcohol, Quantitative Assessment & Plan - Assessment and Plan (Free Text) Assessment: 27 year old male with past medical history of polysubstance abuse, ETOH abuse, ETOH withdrawl and depression with suicidal ideation who presents with ETOH intoxication. Plan: 1. ETOH Intoxication/Withdrawl - Banana Bag - Ativan 2mg Q4H prn - CIWA protocol - Librium 50Q8 - Seizure precautions DVT ppx: SCDs GI ppx: Protonix Patient and case discussed with attending - Date & Time Date: 01/11/18 Time: 01:15
[2018-01-11 07:33] LABS: BASO # 0.06 K/mm3 (0.0-2.0); BASO % 0.8 % (0.0-3.0); EOS # 0.3 (0.0-0.7); EOS % 3.4 % (1.5-5.0); GRAN # 3.82 (1.4-6.5); GRAN % 48.7 % (50.0-68.0); HEMOGLOBIN 14.5 g/dL (14.0-18.0); LYMPH # 3.3 (1.2-3.4); LYMPH % 41.5 % (22.0-35.0); MEAN CELL VOLUME 98.9 fl (80.0-105.0); MEAN CORPUSCULAR HGB CONC 33.4 g/dl (31.0-37.0); MEAN PLATELET VOLUME 10.2 fl (7.0-11.0); MONO # 0.4 (0.1-0.6); MONO % 5.6 % (1.0-6.0); RBC 4.39 10^6/uL (3.5-6.1); RED CELL DISTRIBUTION WIDTH 12.8 % (11.5-14.5); WHITE BLOOD COUNT 7.9 10^3/ul (4.5-11.0)
[2018-01-11 07:46] LABS: ALB/GLOB RATIO 1.3 (1.1-1.8); ALBUMIN 3.8 g/dL (3.0-4.8); ALT/SGPT 51 U/L (7-56); AST/SGOT 37 U/L (17-59); BLOOD UREA NITROGEN 18 mg/dL (7-21); CALCIUM 8.7 mg/dL (8.4-10.5); GFR AFRICAN-AMERICAN > 60; GFR NON-AFRICAN AMERICAN > 60
--- NOTE | 2018-01-11 08:44 | RAD ---
HISTORY: 27yoM, anxiety, sob COMPARISON: 12/26/2017 FINDINGS: LUNGS: The lungs are well inflated and clear. PLEURA: No significant pleural effusion identified, no pneumothorax apparent. CARDIOVASCULAR: Normal. OSSEOUS STRUCTURES: No significant abnormalities. VISUALIZED UPPER ABDOMEN: Normal. OTHER FINDINGS: None. IMPRESSION: No active pulmonary disease.
[2018-01-11 09:00] LABS: MAGNESIUM 1.9 mg/dL (1.7-2.2)
--- NOTE | 2018-01-11 09:51 | CARD ---
APPROVED REPORT EKG Measurement Heart [id number] <Conclusion> Normal sinus rhythm Normal ECG
--- NOTE | 2018-01-11 23:49 | CON ---
DATE: He is being seen today for a consultation. PRESENTATION: The patient is a 27-year-old white male seen at bedside. He was admitted to [facility] on for complaints of feeling like he is having a panic attack. The patient has a history of polysubstance abuse with alcohol, benzodiazepines, marijuana. He additionally before coming in this day, was drinking whiskey and combining that with Xanax. He drank 1 to 2 pints of whiskey prior to admission. However, he drinks on a daily basis, about 2 pints of whiskey a day. Psychiatric consultation was ordered due to concerns for psych evaluation and for polysubstance abuse. The patient has been seen at [facility] for alcohol-related issues 10 times since 09/22/2017. Prior to that, the last time he was seen in the emergency room was in May, and in terms of psychiatric, had been a year prior to that he had been seen. So, since September, the patient has had quite an increase in his alcohol and drug consumption as well as his contacts with the hospital. The patient was very sleepy when seen. He is pleasant and cooperative, but closes his eyes in between my questions. Indicates that since his last admission which was 12/29/2017, he was sober for about a week and then his sister had a birthday republican and that was the end of that. The patient currently lives with his boyfriend in an apartment, indicates that the relationship is stable; however, his boyfriend is not pleased with his behavior and his use, and he is getting sick of it. The last 2 times seen, the patient had been motivated to attend inpatient or outpatient programs. He had been making phone calls he said, but then he relapsed within a week when he was discharged, but he did not end up staying sober long enough to get in anywhere. He has not been working. He is supported by his boyfriend. His mother is involved with him in his care, but she is also, according to the patient, a kind of "had it" with his behavior. The patient does appear to have a minimal amount of insight in that he feels he needs treatments. He does not feel that he is depressed at this time. He just feels like his alcoholism is, "out of control." He has no psychiatric history in terms of being psychiatrically hospitalized or going to any kind of a rehabilitation facility. He had been trying to get into [facility] prior to this particular admission. The patient has significant withdrawal symptoms during detox; he does need medical attention when he detoxes. The patient grew up in [place]. 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 He is 1 of 6 children. His father lived out of state. His mother lives in [place] and he does have a sister who has problems with drugs as well. Says there are no problems with drugs or alcohol within his family, otherwise. He is the middle child of 6. VITAL SIGNS: The patient's current vital signs include a temperature of 98.9, pulse of 84, blood pressure of 114/62, respiratory rate of 20, and an O2 sat of 94%. CURRENT MEDICATIONS: His current medications are Librium 25 mg p.o. q. 6 hours, folic acid, thiamine, and multivitamins daily, Ativan 2 mg IV push q. 4 hours as needed and he is getting this pretty much routinely, and nicotine patch as he does smoke a pack a day. The patient, in addition to the alcohol, has been known to use benzodiazepines, marijuana, cocaine and methamphetamine. MENTAL STATUS EXAMINATION: The patient is drowsy; however, he is oriented x3. His eye contact is poor. His behavior is cooperative. His speech rate and volume are within normal limits. Mood is euthymic. Affect is full. Thoughts are goal directed. He denies being suicidal or homicidal. Denies the presence of hallucinations, delusion and paranoia. His concentration and focus he indicates are poor. His memory, both short and watermaster, appears to be adequate. His appetite and his sleep have been erratic. DIAGNOSTIC IMPRESSION: Alcohol dependence with withdrawal. PLAN: The patient denies being suicidal or homicidal, and appears to be in no imminent danger of hurting himself or others. He indicates that he at this point is willing to consider a nonresidential treatment, that he just really feels he needs to get into treatment. This was passed on to the social work staff and they will follow up with him. Psychiatry will continue to visit. We will continue to follow up. Thank you for the consult. Antonieta Rosenberg APN Hollie Orellana MD [place]
[2018-01-12 07:02] LABS: BASO # 0.09 K/mm3 (0.0-2.0); BASO % 1.1 % (0.0-3.0); EOS # 0.5 (0.0-0.7); EOS % 6.3 % (1.5-5.0); GRAN # 4.9 (1.4-6.5); GRAN % 60.9 % (50.0-68.0); HEMOGLOBIN 14.4 g/dL (14.0-18.0); LYMPH # 2.1 (1.2-3.4); LYMPH % 25.9 % (22.0-35.0); MEAN CELL VOLUME 98.4 fl (80.0-105.0); MEAN CORPUSCULAR HEMOGLOBIN 32.9 pg (25.0-35.0); MEAN CORPUSCULAR HGB CONC 33.4 g/dl (31.0-37.0); MEAN PLATELET VOLUME 10.1 fl (7.0-11.0); MONO # 0.5 (0.1-0.6); MONO % 5.8 % (1.0-6.0); RBC 4.38 10^6/uL (3.5-6.1); RED CELL DISTRIBUTION WIDTH 12.5 % (11.5-14.5); WHITE BLOOD COUNT 8.1 10^3/ul (4.5-11.0)
[2018-01-12 07:42] LABS: ALB/GLOB RATIO 1.4 (1.1-1.8); ALBUMIN 3.9 g/dL (3.0-4.8); ALT/SGPT 54 U/L (7-56); AST/SGOT 47 U/L (17-59); BLOOD UREA NITROGEN 14 mg/dL (7-21); CALCIUM 9.5 mg/dL (8.4-10.5); GFR AFRICAN-AMERICAN > 60; GFR NON-AFRICAN AMERICAN > 60
[2018-01-12] MEDS ORDERED: Multivitamin With Minerals Tab PO SCH (08:00)
[2018-01-12] MEDS ORDERED: Potassium Chloride 20 mEq ER Tab PO STA (08:42)
[2018-01-12 12:03] VITALS: BP 115/60; PULSE 97; RESP 16; TEMP 98.6; O2SAT 99
--- NOTE | 2018-01-12 14:42 | CP.PCM.DIS ---
<Ronen Daniels - Last Filed: 01/12/18 14:36> Provider - Provider Date of Admission: 01/11/18 13:35 Attending physician: Kip Zendejas MD Primary care physician: NO PRIMARY CARE PROVIDER Consults: Psych: Dr. Mi Time Spent in preparation of Discharge (in minutes): 42 Hospital Course - Lab Results Lab Results: Most Recent Lab Values WBC 8.1 10^3/ul (4.5-11.0) 01/12/18 06:15 RBC 4.38 10^6/uL (3.5-6.1) 01/12/18 06:15 Hgb 14.4 g/dL (14.0-18.0) 01/12/18 06:15 Hct 43.1 % (42.0-52.0) 01/12/18 06:15 MCV 98.4 fl (80.0-105.0) 01/12/18 06:15 MCH 32.9 pg (25.0-35.0) 01/12/18 06:15 MCHC 33.4 g/dl (31.0-37.0) 01/12/18 06:15 RDW 12.5 % (11.5-14.5) 01/12/18 06:15 Plt Count 233 10^3/uL (120.0-450.0) 01/12/18 06:15 MPV 10.1 fl (7.0-11.0) 01/12/18 06:15 Gran % 60.9 % (50.0-68.0) 01/12/18 06:15 Lymph % (Auto) 25.9 % (22.0-35.0) 01/12/18 06:15 [place] % (Auto) 5.8 % (1.0-6.0) 01/12/18 06:15 Eos % (Auto) 6.3 % (1.5-5.0) H 01/12/18 06:15 Baso % (Auto) 1.1 % (0.0-3.0) 01/12/18 06:15 Gran # 4.90 (1.4-6.5) 01/12/18 06:15 Lymph # (Auto) 2.1 (1.2-3.4) 01/12/18 06:15 [place] # (Auto) 0.5 (0.1-0.6) 01/12/18 06:15 Eos # (Auto) 0.5 (0.0-0.7) 01/12/18 06:15 Baso # (Auto) 0.09 K/mm3 (0.0-2.0) 01/12/18 06:15 Sodium 138 mmol/L (132-148) 01/12/18 06:15 Potassium 3.4 mmol/L (3.6-5.0) L 01/12/18 06:15 Chloride 105 mmol/L (98-107) 01/12/18 06:15 Carbon Dioxide 24 mmol/L (21-33) 01/12/18 06:15 Anion Gap 13 (10-20) 01/12/18 06:15 BUN 14 mg/dL (7-21) 01/12/18 06:15 Creatinine 0.8 mg/dl (0.8-1.5) 01/12/18 06:15 Est GFR ( Amer) > 60 01/12/18 06:15 Est GFR (Non-Af Amer) > 60 01/12/18 06:15 Random Glucose 107 mg/dL (70-110) 01/12/18 06:15 Calcium 9.5 mg/dL (8.4-10.5) 01/12/18 06:15 Phosphorus 4.2 mg/dL (2.5-4.5) 01/12/18 06:15 Magnesium 2.0 mg/dL (1.7-2.2) 01/12/18 06:15 Total Bilirubin 1.1 mg/dL (0.2-1.3) 01/12/18 06:15 AST 47 U/L (17-59) 01/12/18 06:15 ALT 54 U/L (7-56) 01/12/18 06:15 Alkaline Phosphatase 68 U/L (38-126) 01/12/18 06:15 Troponin I < 0.01 ng/mL 01/10/18 19:20 Total Protein 6.7 g/dL (5.8-8.3) 01/12/18 06:15 Albumin 3.9 g/dL (3.0-4.8) 01/12/18 06:15 Globulin 2.9 gm/dL 03/06/18 06:15 Albumin/Globulin Ratio 1.4 (1.1-1.8) 01/12/18 06:15 Urine Color Yellow (YELLOW) 01/10/18 20:50 Urine Appearance Clear (CLEAR) 01/10/18 20:50 Urine pH 6.5 (4.7-8.0) 01/10/18 20:50 Ur Specific [place] 1.015 (1.005-1.035) 01/10/18 20:50 Urine Protein Negative mg/dL (<30 mg/dL) 01/10/18 20:50 Urine Glucose (UA) Negative mg/dL (NEGATIVE) 01/10/18 20:50 Urine Ketones Negative mg/dL (NEGATIVE) 01/10/18 20:50 Urine Blood Negative (NEGATIVE) 01/10/18 20:50 Urine Nitrate Negative (NEGATIVE) 01/10/18 20:50 Urine Bilirubin Negative (NEGATIVE) 01/10/18 20:50 Urine Urobilinogen 0.2 E.U./dL (<1 E.U./dL) 01/10/18 20:50 Ur Leukocyte Esterase Negative Kiersten/uL (NEGATIVE) 01/10/18 20:50 Salicylates < 1 mg/dL (2.0-20.0) L 01/10/18 19:20 Urine Opiates Screen Negative (NEGATIVE) 01/10/18 20:50 Urine Methadone Screen Negative (NEGATIVE) 01/10/18 20:50 Acetaminophen < 10.0 ug/ml (10.0-20.0) L 01/10/18 19:20 Ur Barbiturates Screen Negative (NEGATIVE) 01/10/18 20:50 Ur Phencyclidine Scrn Negative (NEGATIVE) 01/10/18 20:50 Ur Amphetamines Screen Negative (NEGATIVE) 01/10/18 20:50 U Benzodiazepines Scrn Positive (NEGATIVE) 01/10/18 20:50 U Oth Cocaine Metabols Negative (NEGATIVE) 01/10/18 20:50 U Cannabinoids Screen Positive (NEGATIVE) H 01/10/18 20:50 Alcohol, Quantitative 277 mg/dL (0-10) H 01/10/18 19:20 - Hospital Course Hospital Course: 27 year old male with a past medical history significant for polysubstance abuse who presented for alcohol intoxication. Patient stated that abstained from alcohol use for two weeks but relapsed two days [employer] and had been drinking since. Psych was consulted who recommended substance abuse cessation and for patient to continue with his efforts to get into detox program. Patient was placed on scheduled librium and as needed ativan, along with banana bag IV, for alcohol withdrawal. Patient had Q4 CIWA assessments and aspiration, fall and seizure precautions. Patient was transitioned from banana bag to PO folate, MV and thiamine supplementation. Patient was HDS and without signs/symptoms of alcohol withdrawal for 24 hours. He was discharged on 01/12/18 with prescriptions for folic acid, thiamine and MV and with instructions to complete process of getting into detox program. He was also provided with information on local AA meetings in the [facility] area prior to discharge. - Date & Time of H&P Date of H&P: 01/11/18 Time of H&P: 01:08 Discharge Exam - Head Exam Head Exam: ATRAUMATIC, NORMAL INSPECTION, NORMOCEPHALIC - Eye Exam Eye Exam: EOMI, Normal appearance, PERRL Pupil Exam: NORMAL ACCOMODATION, PERRL - ENT Exam ENT Exam: Mucous Membranes Moist, Normal Exam - Neck Exam Neck exam: Full Rom, Normal Inspection - Respiratory Exam Respiratory Exam: Clear to PA & Lateral, NORMAL BREATHING PATTERN, UNREMARKABLE - Cardiovascular Exam Cardiovascular Exam: REGULAR RHYTHM - GI/Abdominal Exam GI & Abdominal Exam: Normal Bowel Sounds, Unremarkable - Extremities Exam Extremities exam: full ROM, normal capillary refill, normal inspection, pedal pulses present - Back Exam Back exam: FULL ROM, NORMAL INSPECTION - Neurological Exam Neurological exam: Alert, CN II-XII Intact, Normal Gait, Oriented x3, Reflexes Normal - Psychiatric Exam Psychiatric exam: Normal Affect, Normal Mood - Skin Skin Exam: Dry, Intact, Normal Color, Warm Discharge Plan - Discharge Medications Prescriptions: Folic Acid 1 mg PO DAILY #14 tab Multivitamin [Multivitamins] 1 each PO DAILY #14 capsule Thiamine [Vitamin B1 Tab] 100 mg PO DAILY #14 tab - Follow Up Plan Condition: IMPROVED Disposition: HOME/ ROUTINE Instructions: Alcohol Withdrawal, Alcohol Abuse and Alcoholism (DC), Anxiety ( DC) Additional Instructions: Please follow up with your primary care doctor within one to two weeks. If you do not have a primary care doctor, the contact information for the [facility] at [facility] has been provided. Please follow up with your plans to be admitted into inpatient rehab. Information for this and local AA meetings have been provided by [email or web address]. Please take all medications as prescribed If your symptoms should worsen or persist, please seek emergency medical attention Referrals: PCP,NO [Primary Care Provider] - <Kip Zendejas - Last Filed: 01/12/18 15:08> Provider - Provider Date of Admission: 01/11/18 13:35 Attending physician: Kip Zendejas MD Primary care physician: NO PRIMARY CARE PROVIDER Hospital Course - Lab Results Lab Results: Most Recent Lab Values WBC 8.1 10^3/ul (4.5-11.0) 01/12/18 06:15 RBC 4.38 10^6/uL (3.5-6.1) 01/12/18 06:15 Hgb 14.4 g/dL (14.0-18.0) 01/12/18 06:15 Hct 43.1 % (42.0-52.0) 01/12/18 06:15 MCV 98.4 fl (80.0-105.0) 01/12/18 06:15 MCH 32.9 pg (25.0-35.0) 01/12/18 06:15 MCHC 33.4 g/dl (31.0-37.0) 01/12/18 06:15 RDW 12.5 % (11.5-14.5) 01/12/18 06:15 Plt Count 233 10^3/uL (120.0-450.0) 01/12/18 06:15 MPV 10.1 fl (7.0-11.0) 01/12/18 06:15 Gran % 60.9 % (50.0-68.0) 01/12/18 06:15 Lymph % (Auto) 25.9 % (22.0-35.0) 01/12/18 06:15 [place] % (Auto) 5.8 % (1.0-6.0) 01/12/18 06:15 Eos % (Auto) 6.3 % (1.5-5.0) H 01/12/18 06:15 Baso % (Auto) 1.1 % (0.0-3.0) 01/12/18 06:15 Gran # 4.90 (1.4-6.5) 01/12/18 06:15 Lymph # (Auto) 2.1 (1.2-3.4) 01/12/18 06:15 [place] # (Auto) 0.5 (0.1-0.6) 01/12/18 06:15 Eos # (Auto) 0.5 (0.0-0.7) 01/12/18 06:15 Baso # (Auto) 0.09 K/mm3 (0.0-2.0) 01/12/18 06:15 Sodium 138 mmol/L (132-148) 01/12/18 06:15 Potassium 3.4 mmol/L (3.6-5.0) L 01/12/18 06:15 Chloride 105 mmol/L (98-107) 01/12/18 06:15 Carbon Dioxide 24 mmol/L (21-33) 01/12/18 06:15 Anion Gap 13 (10-20) 01/12/18 06:15 BUN 14 mg/dL (7-21) 01/12/18 06:15 Creatinine 0.8 mg/dl (0.8-1.5) 01/12/18 06:15 Est GFR ( Amer) > 60 01/12/18 06:15 Est GFR (Non-Af Amer) > 60 01/12/18 06:15 Random Glucose 107 mg/dL (70-110) 01/12/18 06:15 Calcium 9.5 mg/dL (8.4-10.5) 01/12/18 06:15 Phosphorus 4.2 mg/dL (2.5-4.5) 01/12/18 06:15 Magnesium 2.0 mg/dL (1.7-2.2) 01/12/18 06:15 Total Bilirubin 1.1 mg/dL (0.2-1.3) 01/12/18 06:15 AST 47 U/L (17-59) 01/12/18 06:15 ALT 54 U/L (7-56) 01/12/18 06:15 Alkaline Phosphatase 68 U/L (38-126) 01/12/18 06:15 Troponin I < 0.01 ng/mL 01/10/18 19:20 Total Protein 6.7 g/dL (5.8-8.3) 01/12/18 06:15 Albumin 3.9 g/dL (3.0-4.8) 01/12/18 06:15 Globulin 2.9 gm/dL 01/12/18 06:15 Albumin/Globulin Ratio 1.4 (1.1-1.8) 01/12/18 06:15 Urine Color Yellow (YELLOW) 01/10/18 20:50 Urine Appearance Clear (CLEAR) 01/10/18 20:50 Urine pH 6.5 (4.7-8.0) 01/10/18 20:50 Ur Specific [place] 1.015 (1.005-1.035) 01/10/18 20:50 Urine Protein Negative mg/dL (<30 mg/dL) 01/10/18 20:50 Urine Glucose (UA) Negative mg/dL (NEGATIVE) 01/10/18 20:50 Urine Ketones Negative mg/dL (NEGATIVE) 01/10/18 20:50 Urine Blood Negative (NEGATIVE) 01/10/18 20:50 Urine Nitrate Negative (NEGATIVE) 01/10/18 20:50 Urine Bilirubin Negative (NEGATIVE) 01/10/18 20:50 Urine Urobilinogen 0.2 E.U./dL (<1 E.U./dL) 01/10/18 20:50 Ur Leukocyte Esterase Negative Kiersten/uL (NEGATIVE) 01/10/18 20:50 Salicylates < 1 mg/dL (2.0-20.0) L 01/10/18 19:20 Urine Opiates Screen Negative (NEGATIVE) 01/10/18 20:50 Urine Methadone Screen Negative (NEGATIVE) 01/10/18 20:50 Acetaminophen < 10.0 ug/ml (10.0-20.0) L 01/10/18 19:20 Ur Barbiturates Screen Negative (NEGATIVE) 01/10/18 20:50 Ur Phencyclidine Scrn Negative (NEGATIVE) 01/10/18 20:50 Ur Amphetamines Screen Negative (NEGATIVE) 01/10/18 20:50 U Benzodiazepines Scrn Positive (NEGATIVE) 01/10/18 20:50 U Oth Cocaine Metabols Negative (NEGATIVE) 01/10/18 20:50 U Cannabinoids Screen Positive (NEGATIVE) H 01/10/18 20:50 Alcohol, Quantitative 277 mg/dL (0-10) H 01/10/18 19:20 Attending/Attestation - Attestation I have personally seen and examined this patient.: Yes I have fully participated in the care of the patient.: Yes I have reviewed all pertinent clinical information, including history, physical exam and plan: Yes Notes (Text): 01/12/18 15:05 Medical record note made by the resident after discussion with my direction and input after the patient was personally seen and examined by me. I have reviewed the chart and agree that the record accurately reflects by personal performance of the history, physical exam, data review, and medical decision-making, in the course for the patient. I have also personally directed the plan of care. 27 yrs old male with H/O alcohol abuse, denies suicidal ideation at this time.Patient was evaluated by Psychiatry and out patient rehabilitation was recommended. There is no sign of alcohol withdrawal at the time of discharge.Patient is alert ,awake and oriented.He is ambulatory. Issue of ongoing alcohol abuse was discussed in detail with him Management plan was discussed in detail with patient. Education was provided.
--- NOTE | 2018-01-13 08:11 | PN ---
DATE: 01/12/2018 He is being seen today for a followup consultation. PRESENTATION: The patient is a 27-year-old white male, seen at bedside. The patient was originally admitted to the hospital on 01/10/2018. He came in having anxiety and panic, but it appears to have been withdrawal from alcohol. He has a daily alcohol use habit. Psychiatric consultation was called due to concerns wanting to have a psych evaluations and his substance abuse history. The patient today is alert. He is talkative. He indicates that he was able to stay sober for about a week and went to his sister's birthday alliance party and he thought he would have one Martini and then that turned into a full-blown, back to exactly where he was, drinking problem. He indicates he has a friend and a boyfriend with whom he lives, who are supportive. I pointed out to the patient and looking at his past visits, he has been here 10 times since September for alcohol detox and the patient indicated that he has had a bad breakup with the previous boyfriend and he just was really not getting over it very well. He indicates that he is willing to get psychiatric help as well as followup and looking for a rehab either outpatient or inpatient now that he is detox and he feels he can do one or the other. He was given a list from me, which I have given him in the past of area. He was given brochures on AA. He also has a list of inpatient rehabilitations which he had been going regularly before he relapsed. He indicates he would like to get sober and change. He would like to go to school. He does seem more open and more amenable to the possibility of working to maintain sobriety at this point in time. The patient's current vital signs include the temperature of 98.6, pulse of 97, blood pressure of 115/60, respiratory rate of 16, and O2 sat of 99% at room air. In terms of his withdrawal, the patient feels very stable. He does not have any shaking or sweating and physiologically he is feeling well. He is looking forward to discharge. MENTAL STATUS EXAMINATION: The patient is alert and oriented x3. His eye contact is good. His behavior is pleasant and cooperative. His speech rate and volume are within normal limits. His mood is euthymic. His affect is full. His thoughts are goal directed. He denies being suicidal or homicidal. He denies the presence of hallucinations, delusions, or paranoia. His concentration and his focus, he indicates are normalizing. His memory both short and long-term appears to be adequate. His sleep and his appetite have been good since he has been in the hospital. DIAGNOSTIC IMPRESSION: Alcohol use disorder, chronic severe ongoing with withdrawal. PLAN: The patient denies being suicidal or homicidal. He appears to be in no imminent danger of hurting himself or others. He has been given multiple resources over his last visits here in the hospital in terms of alcohol treatment; however, he does appear to be more motivated than times in the past. We discussed utilizing AA to help him until he is able to get into a program that might be more intensive. The patient seems to be motivated at this time. He does have list of referrals and indicates he plans to use them and wants to maintain sobriety. I will sign off on this patient. He is psychiatrically cleared. Thank you for the consult. Antonieta Rosenberg APN Hollie Orellana MD
== END 2018-01-12 12:39 | disposition home or self-care (01) | DRG 751 ==
LOC: ED 18:55 → ERH 21:56 → 3RSO 23:56 → OBSVTOIN 01-11 13:35
PROVIDERS: ADMIT Internal Medicine; ATTEND Internal Medicine
DX: F10.229 Alcohol dependence with intoxication, unspecified (principal); F10.239 Alcohol dependence with withdrawal, unspecified; F14.10 Cocaine abuse, uncomplicated; F12.10 Cannabis abuse, uncomplicated; F32.9 Major depressive disorder, single episode, unspecified; F17.210 Nicotine dependence, cigarettes, uncomplicated; Y90.8 Blood alcohol level of 240 mg/100 ml or more

== ENCOUNTER 2018-01-13 18:17 | Emergency (ER) | payer OTHER ==
[2018-01-13 18:40] VITALS: BMI 25.7
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
[2018-01-13 20:39] LABS: BASO # 0.04 K/mm3 (0.0-2.0); BASO % 0.3 % (0.0-3.0); EOS # 0.3 (0.0-0.7); EOS % 2.2 % (1.5-5.0); GRAN # 6.73 (1.4-6.5); GRAN % 55.1 % (50.0-68.0); HEMOGLOBIN 16.2 g/dL (14.0-18.0); LYMPH # 4.6 (1.2-3.4); LYMPH % 37.9 % (22.0-35.0); MEAN CELL VOLUME 99.6 fl (80.0-105.0); MEAN CORPUSCULAR HEMOGLOBIN 34.2 pg (25.0-35.0); MEAN CORPUSCULAR HGB CONC 34.4 g/dl (31.0-37.0); MEAN PLATELET VOLUME 10.5 fl (7.0-11.0); MONO # 0.6 (0.1-0.6); MONO % 4.5 % (1.0-6.0); RBC 4.73 10^6/uL (3.5-6.1); RED CELL DISTRIBUTION WIDTH 12.7 % (11.5-14.5); WHITE BLOOD COUNT 12.2 10^3/ul (4.5-11.0)
[2018-01-13 20:40] LABS: PH,URINE 6.5 (4.7-8.0); URINE BILIRUBIN NEGATIVE (NEGATIVE); URINE BLOOD TRACE-INTACT (NEGATIVE); URINE GLUCOSE (UA) NEGATIVE (NEGATIVE); URINE LEUKOCYTE ESTERASE NEGATIVE Leu/uL (NEGATIVE); URINE PROTEIN NEGATIVE mg/dL (<30 mg/dL); URINE UROBILINOGEN 0.2 E.U./dL (<1 E.U./dL)
[2018-01-13 20:41] LABS: URINE APPEARANCE CLEAR (CLEAR); URINE COLOR STRAW (YELLOW)
[2018-01-13 20:51] LABS: ACETAMINOPHEN < 10.0 ug/ml (10.0-20.0); SALICYLATE < 1 mg/dL (2.0-20.0)
[2018-01-13] MEDS ORDERED: Multivitamin (MVI) 10 ML, Thiamine 100 MG, Folic Acid 1 MG in Sodium Chloride 0.9% 1,00... IV ONE (20:52)
[2018-01-13 20:54] LABS: ALB/GLOB RATIO 1.3 (1.1-1.8); ALBUMIN 4.9 g/dL (3.0-4.8); ALT/SGPT 54 U/L (7-56); AST/SGOT 46 U/L (17-59); BLOOD UREA NITROGEN 11 mg/dL (7-21); CALCIUM 9.7 mg/dL (8.4-10.5); GFR AFRICAN-AMERICAN > 60; GFR NON-AFRICAN AMERICAN > 60
[2018-01-13 21:04] LABS: URINE BACTERIA FEW (NEG)
[2018-01-13 21:17] LABS: BARBITURATES, UR NEGATIVE (NEGATIVE); BENZODIAZEPINES, UR POSITIVE (NEGATIVE); CK-MB 2.2 ng/mL (0.0-3.6); OPIATES, UR NEGATIVE (NEGATIVE); PHENCYCLIDINE, UR NEGATIVE (NEGATIVE)
--- NOTE | 2018-01-13 23:50 | ED PDOC ---
Physical Exam Vital Signs Temp Pulse Resp BP Pulse Ox 01/14/18 05:26 89 18 121/79 95 01/13/18 23:00 82 18 110/82 98 01/13/18 20:34 97.8 F 71 16 106/67 97 01/13/18 18:41 97.8 F 95 H 18 120/66 98 Medical Decision Making ED Course and Treatment: 01/13/18 23:00 Case endorsed to me by Dr. Mehta, pending PES, sobriety, and disposition. Pt, whose past medical history includes alcohol intoxication, presented for alcohol intoxication and aggressive behavior. 01/14/18 05:50 Pt seen and evaluated by [facility] PES screener, pt to accepted for involuntary admission for depression. No beds currently available 01/14/18 07:[address] Mckeon, pending [facility] bed availability/transfer. - Lab Interpretations Lab Results: 01/13/18 20:25 01/13/18 20:25 Lab Results 01/13/18 20:25: Alcohol, Quantitative 281 H 01/13/18 20:25: Salicylates < 1 L, Acetaminophen < 10.0 L 01/13/18 20:25: Urine Opiates Screen Negative, Urine Methadone Screen Negative, Ur Barbiturates Screen Negative, Ur Phencyclidine Scrn Negative, Ur Amphetamines Screen Negative, U Benzodiazepines Scrn Positive, U Oth Cocaine Metabols Positive H, U Cannabinoids Screen Negative 01/13/18 20:25: Sodium 150 H, Potassium 4.5, Chloride 110 H, Carbon Dioxide 24, Anion Gap 21 H, BUN 11, Creatinine 0.9, Est GFR ( Amer) > 60, Est GFR ( Non-Af Amer) > 60, Random Glucose 93, Calcium 9.7, Total Bilirubin 0.5, AST 46, ALT 54, Alkaline Phosphatase 88, Total Creatine Kinase 414 H, CK-MB (CK-2) 2.2, CK-MB (CK-2) % Cancelled, Total Protein 8.5 H, Albumin 4.9 H, Globulin 3.7, Albumin/Globulin Ratio 1.3 01/13/18 20:25: Urine Color Straw, Urine Appearance Clear, Urine pH 6.5, Ur Specific [place] <= 1.005, Urine Protein Negative, Urine Glucose (UA) Negative, Urine Ketones Negative, Urine Blood Trace-intact H, Urine Nitrate Negative, Urine Bilirubin Negative, Urine Urobilinogen 0.2, Ur Leukocyte Esterase Negative , Urine RBC 1 - 3, Urine WBC 1 - 3, Ur Epithelial Cells 1 - 3, Urine Bacteria Few 01/13/18 20:25: WBC 12.2 H D, RBC 4.73, Hgb 16.2, Hct 47.1, MCV 99.6, MCH 34.2, MCHC 34.4, RDW 12.7, Plt Count 238, MPV 10.5, Gran % 55.1, Lymph % (Auto) 37.9 H , [place] % (Auto) 4.5, Eos % (Auto) 2.2, Baso % (Auto) 0.3, Gran # 6.73 H, Lymph # (Auto) 4.6 H, [place] # (Auto) 0.6, Eos # (Auto) 0.3, Baso # (Auto) 0.04 - Medication Orders Current Medication Orders: Discontinued Medications Haloperidol Lactate (Haldol) 5 mg IM STAT STA Stop: 01/13/18 22:43 Last Admin: 01/13/18 23:03 Dose: 5 mg IM Administration Charges Document 01/13/18 23:03 AD (Rec: 01/13/18 23:03 AD [id number] Injection Site MAR Injection Site Right Deltoid Charges for Administration # of IM Administrations 1 Multivitamins/Vitamin C 10 ml/Thiamine HCl 100 mg/ Folic Acid 1 mg/ Sodium Chloride 1,011.2 mls @ 1,000 mls/hr IV .Q1H1M ONE Stop: 01/13/18 21:52 Last Admin: 01/13/18 21:30 Dose: Lorazepam (Ativan) 2 mg IM ONCE ONE Stop: 01/13/18 21:31 Last Admin: 01/13/18 21:39 Dose: 2 mg IM Administration Charges Document 01/13/18 21:39 AD (Rec: 01/13/18 21:39 AD [id number]) Injection Site MAR Injection Site Left Deltoid Charges for Administration # of IM Administrations 1 Ondansetron HCl (Zofran Inj) 4 mg IM STAT STA Stop: 01/13/18 18:38 Last Admin: 01/13/18 20:10 Dose: 4 mg IM Administration Charges Document 01/13/18 20:10 AD (Rec: 03/07/18 20:10 AD [id number] Injection Site MAR Injection Site Left Deltoid Charges for Administration # of IM Administrations 1 Disposition/Present on Arrival - Present on Arrival Any Indicators Present on Arrival: No History of DVT/PE: No History of Uncontrolled Diabetes: No Urinary Catheter: No History of Decub. Ulcer: No History Surgical Site Infection Following: None - Disposition Have Diagnosis and Disposition been Completed?: No Diagnosis: Alcohol abuse, Suicidal behavior Disposition Time: 07:00 Patient Problems: Current Active Problems Problem Status Onset Suicidal behavior Acute Alcohol abuse Chronic Condition: STABLE Referrals: Gerardo Mccall MD [Primary Care Provider] - Follow up with primary
[2018-01-14] MEDS ORDERED: DiphenhydrAMINE 50 mg/ml Inj IM PRN (09:03)
--- NOTE | 2018-01-14 21:06 | CON ---
DATE: HISTORY OF PRESENT ILLNESS: The patient is 27-year-old male with long history of polysubstance abuse and dependence. Patient came to the hospital for alcohol intoxication. During the interview, patient was found to be in risk to hurt himself or others. The patient was screened by [facility]. Patient was accepted for involuntary commitment. Patient was seen and examined today at the morning time in the emergency room. Patient presented to be emotional, labile, crying nonstop. Patient reported that he is not suicidal, but this is very doubtful. Patient was verbalizing thoughts of killing himself to his mother and to his girlfriend. Patient reported that he feels very uncomfortable; he was drinking a lot. Patient reported that he feels shaky. Previous history, reviewed. Medications, reviewed. Labs, reviewed. VITAL SIGNS: Seems to be stable. Temperature 98.8, pulse is 88, blood pressure 118/77, respirations 18, oxygen saturation is 98. Medications were reviewed. Benadryl, Ativan, and Haldol will be given to the patient as needed for agitation, IM. Patient has history of alcohol withdrawal delirium and that is why this race and sports book writer will initiate Ativan 2 mg four times a day scheduled. Folic acid, multivitamins, and thiamine was started. Also, Remeron 15 mg at the nighttime was started. Risks, benefits, and alternatives of the medications were discussed with the patient. LABORATORY DATA: Reviewed. WBCs of 12.5. Sodium 150. Urinalysis showed urine blood, cocaine positive as well as benzodiazepines positive, and alcohol level was 281. MENTAL STATUS EXAMINATION: Patient presented to be in emotional distress. Patient was crying nonstop. No eye contact. Mood described, "I am fine, I want to go home," but affect is incongruent. Thought process seems to be goal directed. Thought content, patient denied visual, auditory, or tactile hallucinations. Denied paranoid ideation. Patient denied thoughts of harming himself or others, but earlier patient was verbalizing those thoughts. Insight and judgment seems to be very limited. Impulses are unpredictable. IMPRESSION: Mood disorder, not otherwise specified; rule out substance-induced mood disorder; polysubstance abuse and dependence; rule out bipolar disorder. PLAN: Continue current management. Patient is waiting for bed to be available. Collaterals were obtained from the patient's mother, multivitamins, thiamine, and folic acid started. Please monitor vital signs, Ativan 2 mg four times a day scheduled. P.r.n. medications, Haldol, Benadryl and Ativan started and Remeron 15 mg at the nighttime as needed for insomnia. Patient will be transferred to [facility] as soon as bed is available. Thank you very much for letting me participate in the care of your patient. Should you have any questions, give me a call back. Hollie Orellana MD
--- NOTE | 2018-01-15 03:05 | ED PDOC ---
Physical Exam Vital Signs Temp Pulse Resp BP Pulse Ox 01/15/18 00:00 78 18 120/82 100 01/14/18 20:00 82 17 130/76 100 01/14/18 16:41 86 18 132/96 H 98 01/14/18 14:18 82 18 124/68 100 01/14/18 12:00 90 18 140/72 98 01/14/18 10:00 98.6 F 92 H 18 129/88 100 01/14/18 07:30 88 18 118/77 98 01/14/18 05:26 89 18 121/79 95 01/13/18 23:00 82 18 110/82 98 01/13/18 20:34 97.8 F 71 16 106/67 97 01/13/18 18:41 97.8 F 95 H 18 120/66 98 Medical Decision Making ED Course and Treatment: 01/14/18 19:02 Case endorsed from .Pt. awaiting transfer to [facility] pending bed availability for treatment of depression/suicidal ideation.Patient resting comfortably w/o any complaints. 01/15/18 07:04 Case endorsed to /pending transfer to [facility]. - Lab Interpretations Lab Results: 01/13/18 20:25 01/13/18 20:25 Lab Results 01/13/18 20:25: Alcohol, Quantitative 281 H 01/13/18 20:25: Salicylates < 1 L, Acetaminophen < 10.0 L 01/13/18 20:25: Urine Opiates Screen Negative, Urine Methadone Screen Negative, Ur Barbiturates Screen Negative, Ur Phencyclidine Scrn Negative, Ur Amphetamines Screen Negative, U Benzodiazepines Scrn Positive, U Oth Cocaine Metabols Positive H, U Cannabinoids Screen Negative 01/13/18 20:25: Sodium 150 H, Potassium 4.5, Chloride 110 H, Carbon Dioxide 24, Anion Gap 21 H, BUN 11, Creatinine 0.9, Est GFR ( Amer) > 60, Est GFR ( Non-Af Amer) > 60, Random Glucose 93, Calcium 9.7, Total Bilirubin 0.5, AST 46, ALT 54, Alkaline Phosphatase 88, Total Creatine Kinase 414 H, CK-MB (CK-2) 2.2, CK-MB (CK-2) % Cancelled, Total Protein 8.5 H, Albumin 4.9 H, Globulin 3.7, Albumin/Globulin Ratio 1.3 01/13/18 20:25: Urine Color Straw, Urine Appearance Clear, Urine pH 6.5, Ur Specific [place] <= 1.005, Urine Protein Negative, Urine Glucose (UA) Negative, Urine Ketones Negative, Urine Blood Trace-intact H, Urine Nitrate Negative, Urine Bilirubin Negative, Urine Urobilinogen 0.2, Ur Leukocyte Esterase Negative , Urine RBC 1 - 3, Urine WBC 1 - 3, Ur Epithelial Cells 1 - 3, Urine Bacteria Few 01/13/18 20:25: WBC 12.2 H D, RBC 4.73, Hgb 16.2, Hct 47.1, MCV 99.6, MCH 34.2, MCHC 34.4, RDW 12.7, Plt Count 238, MPV 10.5, Gran % 55.1, Lymph % (Auto) 37.9 H , [place] % (Auto) 4.5, Eos % (Auto) 2.2, Baso % (Auto) 0.3, Gran # 6.73 H, Lymph # (Auto) 4.6 H, [place] # (Auto) 0.6, Eos # (Auto) 0.3, Baso # (Auto) 0.04 - Medication Orders Current Medication Orders: Diphenhydramine HCl (Benadryl) 50 mg IM Q6H PRN PRN Reason: agitation/aggression Folic Acid (Folic Acid) 1 mg PO DAILY [facility] Last Admin: 01/14/18 10:25 Dose: 1 mg Haloperidol Lactate (Haldol) 5 mg IM Q6H PRN; Protocol PRN Reason: agitation/aggression Last Admin: 01/14/18 10:25 Dose: 5 mg IM Administration Charges Document 01/14/18 10:25 SZA (Rec: 01/14/18 10:25 [facility] [id number]) Injection Site MAR Injection Site Right Deltoid Charges for Administration # of IM Administrations 1 Lorazepam (Ativan) 2 mg IM Q6H PRN; Protocol PRN Reason: agitation/aggression Last Admin: 01/14/18 15:45 Dose: 2 mg IM Administration Charges Document 01/14/18 15:45 SZA (Rec: 01/14/18 15:45 SZA [id number]) Injection Site MAR Injection Site Left Deltoid Charges for Administration # of IM Administrations 1 Lorazepam (Ativan) 2 mg PO QID [facility] PRN Reason: Protocol Last Admin: 01/14/18 23:10 Dose: 2 mg Mirtazapine (Remeron) 15 mg PO HS PRN PRN Reason: Insomnia Multivitamins/Minerals (Therapeutic-M Tab) 1 tab PO 0800 [facility] Thiamine HCl (Vitamin B1 Tab) 100 mg PO DAILY [facility] Last Admin: 01/14/18 10:25 Dose: 100 mg Discontinued Medications Haloperidol Lactate (Haldol) 5 mg IM STAT STA Stop: 01/13/18 22:43 Last Admin: 01/13/18 23:03 Dose: 5 mg IM Administration Charges Document 01/13/18 23:03 AD (Rec: 01/13/18 23:03 AD [facility] [place]-[id number]) Injection Site MAR Injection Site Right Deltoid Charges for Administration # of IM Administrations 1 Multivitamins/Vitamin C 10 ml/Thiamine HCl 100 mg/ Folic Acid 1 mg/ Sodium Chloride 1,011.2 mls @ 1,000 mls/hr IV .Q1H1M ONE Stop: 01/13/18 21:52 Last Admin: 01/13/18 21:30 Dose: Lorazepam (Ativan) 2 mg IM ONCE ONE Stop: 01/13/18 21:31 Last Admin: 01/13/18 21:39 Dose: 2 mg IM Administration Charges Document 01/13/18 21:39 AD (Rec: 01/13/18 21:39 AD [facility] [id number]) Injection Site MAR Injection Site Left Deltoid Charges for Administration # of IM Administrations 1 Ondansetron HCl (Zofran Inj) 4 mg IM STAT STA Stop: 01/13/18 18:38 Last Admin: 01/13/18 20:10 Dose: 4 mg IM Administration Charges Document 01/13/18 20:10 AD (Rec: 01/13/18 20:10 AD [facility] [id number]) Injection Site MAR Injection Site Left Deltoid Charges for Administration # of IM Administrations 1 Disposition/Present on Arrival - Present on Arrival Any Indicators Present on Arrival: No History of DVT/PE: No History of Uncontrolled Diabetes: No Urinary Catheter: No History of Decub. Ulcer: No History Surgical Site Infection Following: None - Disposition Have Diagnosis and Disposition been Completed?: No Diagnosis: Alcohol abuse, Suicidal behavior Disposition Time: 07:00 Patient Problems: Current Active Problems Problem Status Onset Suicidal behavior Acute Alcohol abuse Chronic Condition: STABLE Referrals: Gerardo Mccall MD [Primary Care Provider] - Follow up with primary
--- NOTE | 2018-01-15 07:15 | ED PDOC ---
Physical Exam Vital Signs Temp Pulse Resp BP Pulse Ox 01/15/18 13:00 97.1 F L 76 16 130/80 98 01/15/18 10:45 98.2 F 64 17 131/69 98 01/15/18 08:48 97.6 F 61 17 121/70 98 01/15/18 07:25 98.1 F 91 H 16 152/77 H 95 01/15/18 04:24 68 18 126/77 99 01/15/18 00:00 78 18 120/82 100 01/14/18 20:00 82 17 130/76 100 01/14/18 16:41 86 18 132/96 H 98 01/14/18 14:18 82 18 124/68 100 01/14/18 12:00 90 18 140/72 98 01/14/18 10:00 98.6 F 92 H 18 129/88 100 01/14/18 07:30 88 18 118/77 98 01/14/18 05:26 89 18 121/79 95 01/13/18 23:00 82 18 110/82 98 01/13/18 20:34 97.8 F 71 16 106/67 97 01/13/18 18:41 97.8 F 95 H 18 120/66 98 Medical Decision Making ED Course and Treatment: 01/15/18 07:00 Case signed out to me by Dr. Jon. Patient is a 27 year old male, who is currently awaiting transfer to [facility] disposition.Patient is currently resting comfortably with no complaints or distress. 01/15/18 18:58 Patient has been cooperative the entire ED stay. Will sign out to Dr. Mckeon to f/u [facility]. - Lab Interpretations Lab Results: 01/13/18 20:25 01/13/18 20:25 Lab Results 01/13/18 20:25: Alcohol, Quantitative 281 H 01/13/18 20:25: Salicylates < 1 L, Acetaminophen < 10.0 L 01/13/18 20:25: Urine Opiates Screen Negative, Urine Methadone Screen Negative, Ur Barbiturates Screen Negative, Ur Phencyclidine Scrn Negative, Ur Amphetamines Screen Negative, U Benzodiazepines Scrn Positive, U Oth Cocaine Metabols Positive H, U Cannabinoids Screen Negative 01/13/18 20:25: Sodium 150 H, Potassium 4.5, Chloride 110 H, Carbon Dioxide 24, Anion Gap 21 H, BUN 11, Creatinine 0.9, Est GFR ( Amer) > 60, Est GFR ( Non-Af Amer) > 60, Random Glucose 93, Calcium 9.7, Total Bilirubin 0.5, AST 46, ALT 54, Alkaline Phosphatase 88, Total Creatine Kinase 414 H, CK-MB (CK-2) 2.2, CK-MB (CK-2) % Cancelled, Total Protein 8.5 H, Albumin 4.9 H, Globulin 3.7, Albumin/Globulin Ratio 1.3 01/13/18 20:25: Urine Color Straw, Urine Appearance Clear, Urine pH 6.5, Ur Specific [place] <= 1.005, Urine Protein Negative, Urine Glucose (UA) Negative, Urine Ketones Negative, Urine Blood Trace-intact H, Urine Nitrate Negative, Urine Bilirubin Negative, Urine Urobilinogen 0.2, Ur Leukocyte Esterase Negative , Urine RBC 1 - 3, Urine WBC 1 - 3, Ur Epithelial Cells 1 - 3, Urine Bacteria Few 01/13/18 20:25: WBC 12.2 H D, RBC 4.73, Hgb 16.2, Hct 47.1, MCV 99.6, MCH 34.2, MCHC 34.4, RDW 12.7, Plt Count 238, MPV 10.5, Gran % 55.1, Lymph % (Auto) 37.9 H , [place] % (Auto) 4.5, Eos % (Auto) 2.2, Baso % (Auto) 0.3, Gran # 6.73 H, Lymph # (Auto) 4.6 H, [place] # (Auto) 0.6, Eos # (Auto) 0.3, Baso # (Auto) 0.04 - Medication Orders Current Medication Orders: Clonazepam (Klonopin) 0.5 mg PO QID [facility] PRN Reason: Protocol Last Admin: 01/15/18 13:45 Dose: 0.5 mg Diphenhydramine HCl (Benadryl) 50 mg IM Q6H PRN PRN Reason: agitation/aggression Folic Acid (Folic Acid) 1 mg PO DAILY [facility] Last Admin: 01/15/18 09:13 Dose: 1 mg Haloperidol Lactate (Haldol) 5 mg IM Q6H PRN; Protocol PRN Reason: agitation/aggression Last Admin: 01/14/18 10:25 Dose: 5 mg IM Administration Charges Document 01/14/18 10:25 SZA (Rec: 01/14/18 10:25 SZA [id number]) Injection Site MAR Injection Site Right Deltoid Charges for Administration # of IM Administrations 1 Lorazepam (Ativan) 2 mg IM Q6H PRN; Protocol PRN Reason: agitation/aggression Last Admin: 01/14/18 15:45 Dose: 2 mg IM Administration Charges Document 01/14/18 15:45 SZA (Rec: 01/14/18 15:45 SZA [id number]) Injection Site MAR Injection Site Left Deltoid Charges for Administration # of IM Administrations 1 Mirtazapine (Remeron) 15 mg PO HS PRN PRN Reason: Insomnia Multivitamins/Minerals (Therapeutic-M Tab) 1 tab PO 0800 [facility] Last Admin: 01/15/18 09:13 Dose: 1 tab Thiamine HCl (Vitamin B1 Tab) 100 mg PO DAILY [facility] Last Admin: 01/15/18 09:13 Dose: 100 mg Discontinued Medications Haloperidol Lactate (Haldol) 5 mg IM STAT STA Stop: 01/13/18 22:43 Last Admin: 01/13/18 23:03 Dose: 5 mg IM Administration Charges Document 01/13/18 23:03 AD (Rec: 01/13/18 23:[address] [facility] [place]-[id number]) Injection Site MAR Injection Site Right Deltoid Charges for Administration # of IM Administrations 1 Multivitamins/Vitamin C 10 ml/Thiamine HCl 100 mg/ Folic Acid 1 mg/ Sodium Chloride 1,011.2 mls @ 1,000 mls/hr IV .Q1H1M ONE Stop: 01/13/18 21:52 Last Admin: 01/13/18 21:30 Dose: Lorazepam (Ativan) 2 mg IM ONCE ONE Stop: 01/13/18 21:31 Last Admin: 01/13/18 21:39 Dose: 2 mg IM Administration Charges Document 01/13/18 21:39 AD (Rec: 01/13/18 21:39 AD [facility] [id number] Injection Site MAR Injection Site Left Deltoid Charges for Administration # of IM Administrations 1 Lorazepam (Ativan) 2 mg PO QID [facility] PRN Reason: Protocol Last Admin: 01/15/18 09:14 Dose: 2 mg Ondansetron HCl (Zofran Inj) 4 mg IM STAT STA Stop: 01/13/18 18:38 Last Admin: 01/13/18 20:10 Dose: 4 mg IM Administration Charges Document 01/13/18 20:10 AD (Rec: 01/13/18 20:[address] [facility] [id number]) Injection Site MAR Injection Site Left Deltoid Charges for Administration # of IM Administrations 1 - Scribe Statement The provider has reviewed the documentation as recorded by the Scribe Analy Davila Provider Scribe Attestation: All medical record entries made by the Scribe were at my direction and personally dictated by me. I have reviewed the chart and agree that the record accurately reflects my personal performance of the history, physical exam, medical decision making, and the department course for this patient. I have also personally directed, reviewed, and agree with the discharge instructions and disposition. Disposition/Present on Arrival - Present on Arrival Any Indicators Present on Arrival: No History of DVT/PE: No History of Uncontrolled Diabetes: No Urinary Catheter: No History of Decub. Ulcer: No History Surgical Site Infection Following: None - Disposition Have Diagnosis and Disposition been Completed?: Yes Diagnosis: Alcohol abuse, Suicidal behavior Disposition Time: 18:58 Patient Problems: Current Active Problems Problem Status Onset Alcohol abuse Chronic Suicidal behavior Acute Condition: STABLE Referrals: Gerardo Mccall MD [Primary Care Provider] - Follow up with primary
[2018-01-15] MEDS ORDERED: Multivitamin With Minerals Tab PO SCH (08:00)
[2018-01-15] MEDS ORDERED: DiphenhydrAMINE 50 mg/ml Inj IM PRN (19:37)
--- NOTE | 2018-01-15 20:14 | ED PDOC ---
Physical Exam - Physical Exam Narrative Physical Exam (Text): 01/15/18 20:11 Vital Signs Temp Pulse Resp BP Pulse Ox 01/15/18 13:00 97.1 F L 76 16 130/80 98 01/15/18 10:45 98.2 F 64 17 131/69 98 01/15/18 08:48 97.6 F 61 17 121/70 98 01/15/18 07:25 98.1 F 91 H 16 152/77 H 95 01/15/18 04:24 68 18 126/77 99 01/15/18 00:00 78 18 120/82 100 01/14/18 20:00 82 17 130/76 100 01/14/18 16:41 86 18 132/96 H 98 01/14/18 14:18 82 18 124/68 100 01/14/18 12:00 90 18 140/72 98 01/14/18 10:00 98.6 F 92 H 18 129/88 100 01/14/18 07:30 88 18 118/77 98 01/14/18 05:26 89 18 121/79 95 01/13/18 23:00 82 18 110/82 98 01/13/18 20:34 97.8 F 71 16 106/67 97 01/13/18 18:41 97.8 F 95 H 18 120/66 98 Medical Decision Making ED Course and Treatment: 01/15/18 20:13 Case signed out to me by Dr. Mehta. Patient is a 27 year old male, who is awaiting transfer to [facility] disposition. Patient is currently walking and resting comfortably with no complaints. - Lab Interpretations Lab Results: 01/13/18 20:25 01/13/18 20:25 Lab Results 01/13/18 20:25: Alcohol, Quantitative 281 H 01/13/18 20:25: Salicylates < 1 L, Acetaminophen < 10.0 L 01/13/18 20:25: Urine Opiates Screen Negative, Urine Methadone Screen Negative, Ur Barbiturates Screen Negative, Ur Phencyclidine Scrn Negative, Ur Amphetamines Screen Negative, U Benzodiazepines Scrn Positive, U Oth Cocaine Metabols Positive H, U Cannabinoids Screen Negative 01/13/18 20:25: Sodium 150 H, Potassium 4.5, Chloride 110 H, Carbon Dioxide 24, Anion Gap 21 H, BUN 11, Creatinine 0.9, Est GFR ( Amer) > 60, Est GFR ( Non-Af Amer) > 60, Random Glucose 93, Calcium 9.7, Total Bilirubin 0.5, AST 46, ALT 54, Alkaline Phosphatase 88, Total Creatine Kinase 414 H, CK-MB (CK-2) 2.2, CK-MB (CK-2) % Cancelled, Total Protein 8.5 H, Albumin 4.9 H, Globulin 3.7, Albumin/Globulin Ratio 1.3 01/13/18 20:25: Urine Color Straw, Urine Appearance Clear, Urine pH 6.5, Ur Specific [place] <= 1.005, Urine Protein Negative, Urine Glucose (UA) Negative, Urine Ketones Negative, Urine Blood Trace-intact H, Urine Nitrate Negative, Urine Bilirubin Negative, Urine Urobilinogen 0.2, Ur Leukocyte Esterase Negative , Urine RBC 1 - 3, Urine WBC 1 - 3, Ur Epithelial Cells 1 - 3, Urine Bacteria Few 01/13/18 20:25: WBC 12.2 H D, RBC 4.73, Hgb 16.2, Hct 47.1, MCV 99.6, MCH 34.2, MCHC 34.4, RDW 12.7, Plt Count 238, MPV 10.5, Gran % 55.1, Lymph % (Auto) 37.9 H , [place] % (Auto) 4.5, Eos % (Auto) 2.2, Baso % (Auto) 0.3, Gran # 6.73 H, Lymph # (Auto) 4.6 H, [place] # (Auto) 0.6, Eos # (Auto) 0.3, Baso # (Auto) 0.04 - Medication Orders Current Medication Orders: Clonazepam (Klonopin) 0.5 mg PO QID [facility] PRN Reason: Protocol Diphenhydramine HCl (Benadryl) 50 mg IM Q6H PRN PRN Reason: agitation/aggression Folic Acid (Folic Acid) 1 mg PO DAILY [facility] Haloperidol Lactate (Haldol) 5 mg IM Q6H PRN; Protocol PRN Reason: agitation/aggression Lorazepam (Ativan) 2 mg IM Q6H PRN; Protocol PRN Reason: agitation/aggression Mirtazapine (Remeron) 15 mg PO HS PRN PRN Reason: Insomnia Multivitamins/Minerals (Therapeutic-M Tab) 1 tab PO 0800 [facility] Thiamine HCl (Vitamin B1 Tab) 100 mg PO DAILY [facility] Discontinued Medications Clonazepam (Klonopin) 0.5 mg PO QID [facility] PRN Reason: Protocol Last Admin: 01/15/18 13:45 Dose: 0.5 mg Diphenhydramine HCl (Benadryl) 50 mg IM Q6H PRN PRN Reason: agitation/aggression Folic Acid (Folic Acid) 1 mg PO DAILY [facility] Last Admin: 01/15/18 09:13 Dose: 1 mg Haloperidol Lactate (Haldol) 5 mg IM STAT STA Stop: 01/13/18 22:43 Last Admin: 01/13/18 23:03 Dose: 5 mg IM Administration Charges Document 01/13/18 23:03 AD (Rec: 01/13/18 23:03 AD [facility] [id number] Injection Site MAR Injection Site Right Deltoid Charges for Administration # of IM Administrations 1 Haloperidol Lactate (Haldol) 5 mg IM Q6H PRN; Protocol PRN Reason: agitation/aggression Last Admin: 01/15/18 19:58 Dose: 5 mg IM Administration Charges Document 01/15/18 19:58 OCS (Rec: 01/15/18 19:58 [facility]CS [id number]) Injection Site MAR Injection Site Left Deltoid Charges for Administration # of IM Administrations 1 Multivitamins/Vitamin C 10 ml/Thiamine HCl 100 mg/ Folic Acid 1 mg/ Sodium Chloride 1,011.2 mls @ 1,000 mls/hr IV .Q1H1M ONE Stop: 01/13/18 21:52 Last Admin: 01/13/18 21:30 Dose: Lorazepam (Ativan) 2 mg IM ONCE ONE Stop: 01/13/18 21:31 Last Admin: 01/13/18 21:39 Dose: 2 mg IM Administration Charges Document 01/13/18 21:39 AD (Rec: 01/13/18 21:39 AD [facility] [id number] Injection Site MAR Injection Site Left Deltoid Charges for Administration # of IM Administrations 1 Lorazepam (Ativan) 2 mg IM Q6H PRN; Protocol PRN Reason: agitation/aggression Last Admin: 01/15/18 19:58 Dose: 2 mg IM Administration Charges Document 01/15/18 19:58 OCS (Rec: 01/15/18 19:59 OCS [id number]) Injection Site MAR Injection Site Right Deltoid Charges for Administration # of IM Administrations 1 Lorazepam (Ativan) 2 mg PO QID [facility] PRN Reason: Protocol Last Admin: 01/15/18 09:14 Dose: 2 mg Mirtazapine (Remeron) 15 mg PO HS PRN PRN Reason: Insomnia Multivitamins/Minerals (Therapeutic-M Tab) 1 tab PO 0800 [facility] Last Admin: 01/15/18 09:13 Dose: 1 tab Ondansetron HCl (Zofran Inj) 4 mg IM STAT STA Stop: 01/13/18 18:38 Last Admin: 01/13/18 20:10 Dose: 4 mg IM Administration Charges Document 01/13/18 20:10 AD (Rec: 01/13/18 20:10 AD [facility] [id number]) Injection Site MAR Injection Site Left Deltoid Charges for Administration # of IM Administrations 1 Thiamine HCl (Vitamin B1 Tab) 100 mg PO DAILY [facility] Last Admin: 01/15/18 09:13 Dose: 100 mg - Scribe Statement The provider has reviewed the documentation as recorded by the Ladanibmigdalia Luna All medical record entries made by the Ladanibmigdalia were at my direction and personally dictated by me. I have reviewed the chart and agree that the record accurately reflects my personal performance of the history, physical exam, medical decision making, and the department course for this patient. I have also personally directed, reviewed, and agree with the discharge instructions and disposition. Disposition/Present on Arrival - Present on Arrival Any Indicators Present on Arrival: No History of DVT/PE: No History of Uncontrolled Diabetes: No Urinary Catheter: No History of Decub. Ulcer: No History Surgical Site Infection Following: None - Disposition Have Diagnosis and Disposition been Completed?: Yes Diagnosis: Alcohol abuse, Suicidal behavior Disposition: Transfer [facility] Disposition Time: 01:00 Condition: STABLE Referrals: Gerardo Mccall MD [Primary Care Provider] - Follow up with primary Forms: imedo (Yi)
[2018-01-16 01:28] VITALS: BP 134/92; PULSE 96; RESP 16; TEMP 98.5; O2SAT 96
[2018-01-16] MEDS ORDERED: Multivitamin With Minerals Tab PO SCH (08:00)
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
== END 2018-01-16 02:45 | disposition short-term general hospital (02) ==
LOC: ED 18:17
DX: F10.10 Alcohol abuse, uncomplicated (principal); Y90.8 Blood alcohol level of 240 mg/100 ml or more; R46.89 Other symptoms and signs involving appearance and behavior
CPT/HCPCS: 80053; 80320; 80324; 80329; 80345; 80346; 80349; 80353; 80358; 80361; 81001; 82550; 82553; 83992; 85025; 90791; 96372; 99285; J1630; J2060; J2405

== ENCOUNTER 2018-01-30 14:30 | Observation (INO) | payer OTHER ==
[2018-01-30 14:51] VITALS: BMI 25.8
[2018-01-30] MEDS ORDERED: Multivitamin (MVI) 10 ML, Thiamine 100 MG, Folic Acid 1 MG in Sodium Chloride 0.9% 1,00... IV ONE (15:04)
--- NOTE | 2018-01-30 15:14 | ED PDOC ---
Arrival/HPI - General Chief Complaint: Alcohol Ingestion Time Seen by Provider: 01/30/18 15:04 Historian: Patient, Family (mother) - History of Present Illness Narrative History of Present Illness (Text): 01/30/18 15:07 pt p/w + ~ 1 day onset of worsening severe jitteriness/severe anxiousness, severe palpitations/tremors/not feeling well, + lightheadedness, + abd pain, + body aches, + auditory hallucinations (hearing noises); pt states he last drink was 2 days ago and tried to go cold turkey without any alcohol and immediately started to feel sick within 1 day; pt also took his last klonpin? this morning but it's not helping; pt states he feels like he is going to pass out; pt states no fever/chills, + intermittent sweats; + chest tightness/pressure, + SOB , + palpitations, + nausea/vomiting, no appetite, no urinary/bowel changes, decr urination is noted; pt states + lightheadedness/dizziness, no LOC; + intermittent headaches pt states he is depressed but NO suicidal/homicidal ideations; pt denied visual/ tactile hallucinations pt denied fall/trauma/sick contact, no traveling missionary is here for further eval pt's without other complaints. PCP: Dr HERNANDEZ, but not any more pt usually drinks 1-2 pint of whisky daily pt last use [place] was a week ago Time/Duration: 24 hours Symptom Onset: Sudden Symptom Course: Worsening Quality: Tightness Severity Level: Severe Activities at Onset: Rest Context: Home Past Medical History - Provider Review Nursing Documentation Reviewed: Yes - Travel History Have you recently traveled outside [place] w/in the past 3 mons?: No - Past History Past History: No Previous (alcohol dependent) - Infectious Disease Hx of Infectious Diseases: None - Tetanus Immunization Tetanus Immunization: Unknown - Past Medical History Past Medical History: No Previous - Cardiac Hx Cardiac Disorders: No - Pulmonary Hx Respiratory Disorders: No - Neurological Hx Neurological Disorder: No - HEENT Hx HEENT Disorder: No - Renal Hx Renal Disorder: No - Endocrine/Metabolic Hx Endocrine Disorders: No - Hematological/Oncological Hx Blood Disorders: No - Integumentary Hx Dermatological Disorder: No - Musculoskeletal/Rheumatological Hx Musculoskeletal Disorders: Yes Hx Fractures: Yes - Gastrointestinal Hx Gastrointestinal Disorders: No - Genitourinary/Gynecological Hx Genitourinary Disorders: No - Psychiatric Hx Psychophysiologic Disorder: Yes Hx Anxiety: Yes Hx Depression: Yes Hx Panic Disorder: Yes Hx Substance Use: Yes - Past Surgical History Past Surgical History: No Previous - Surgical History Hx Appendectomy: Yes Hx Musculoskeletal Surgery: Yes Hx Orthopedic Surgery: Yes - Anesthesia Hx Anesthesia: Yes Hx Anesthesia Reactions: No Hx Malignant Hyperthermia: No - Suicidal Assessment Feels Threatened In Home Enviroment: No Family/Social History - Physician Review Nursing Documentation Reviewed: Yes Family/Social History: No Known Family HX Smoking Status: Heavy Smoker > 10 Cigarettes Daily Hx Alcohol Use: Yes Hx Substance Use: Yes Hx Substance Use Treatment: No Allergies/Home Meds Allergies/Adverse Reactions: Allergies No Known Allergies Allergy (Verified 01/14/18 16:38) Home Medications: Home Meds Medication Instructions Recorded Confirmed No Known Home Med 01/13/18 01/30/18 Review of Systems - Review of Systems Constitutional: Fatigue Eyes: Vision Changes ENT: Normal Respiratory: SOB Cardiovascular: Chest Pain, Palpitations Gastrointestinal: Abdominal Pain, Nausea, Vomiting Genitourinary Male: Normal Musculoskeletal: Normal Skin: Normal Neurological: Headache, Dizziness Endocrine: Normal Hemo/Lymphatic: Normal Psychiatric: Anxiety, Depression. absent: Suicidal Ideation Physical Exam Vital Signs Reviewed: Yes Vital Signs Temp Pulse Resp BP Pulse Ox 01/30/18 17:12 98.5 F 100 H 20 99 01/30/18 17:10 98.5 F 100 H 18 99 01/30/18 14:52 97.8 F 104 H 18 139/87 99 01/30/18 14:51 97.8 F 104 H 18 139/87 98 Temperature: Afebrile Blood Pressure: Hypertensive Pulse: Tachycardic Respiratory Rate: Normal Appearance: Positive for: Ill-Appearing, Uncomfortable, Other (uncomfortable, jittery, + agitated, alert/awake, GCS = 15, oriented x 3, cooperative, mild- moderate distress due to jittery/pain; + etoh on breath) Pain Distress: Mild Mental Status: Positive for: Alert and Oriented X 3. No: Agitated - Systems Exam Head: Present: Atraumatic, Normocephalic Pupils: Present: PERRL, Other (no photophobia, sclera anicteric, no nystagmus) Extroacular Muscles: Present: EOMI Conjunctiva: Present: Normal Ears: Present: Normal Mouth: Present: Dry, Normal Teeth, Other (uvula/tongue are midline, no exudate/ lesions, dry oral mucosa) Pharnyx: Present: Normal Nose (External): Present: Atraumatic Nose (Internal): Present: Normal Inspection Neck: Present: Normal Range of Motion, Trachea Midline, Other (intact ROM, no midline tenderness, no nuchal rigidity, no step off). No: Meningeal Signs, MIDLINE TENDERNESS Respiratory/Chest: Present: Clear to Auscultation, Good Air Exchange, Other ( CTA b/l, no accessory muscle use noted, + tachypenia). No: Respiratory Distress , Accessory Muscle Use, Decreased Breath Sounds Cardiovascular: Present: Normal S1, S2, Tachycardic, Other (no m/r/r). No: Murmurs, Bradycardic Abdomen: Present: Normal Bowel Sounds, Other (well nourished male, no focal tenderness, no pina's sign, no mcburney's point tenderness, no masses/rebound/ guarding/rigidity) Back: Present: Normal Inspection. No: CVA Tenderness, Midline Tenderness Upper Extremity: Present: Normal Inspection, Normal ROM, NORMAL PULSES, Neurovascularly Intact Lower Extremity: Present: Normal Inspection, NORMAL PULSES, Normal ROM, Neurovascularly Intact, Other (moving all limbs with ease, neurovasc intact b/l) Neurological: Present: GCS=15, CN II-XII Intact, Speech Normal (pressure speech is noted), Other (+ resting tremors noted; uncomfortable) Skin: Present: Warm, Dry, Other (cap refill ~ 1sec, no ulceration, no petechiae , no rashes) Psychiatric: Present: Alert, Oriented x 3, Anxious, Depressed Mood. No: Suicidal Ideation, Homicidal Ideation Medical Decision Making ED Course and Treatment: 01/30/18 15:08 Impression: depression, alcohol dependent, now with alcohol w/d i have consider all the differential diagnosis regarding pt's chief medical complaints/clinical findings, including but are not limited to: depression, alcohol dependent, now with alcohol w/d A/P: depression, alcohol dependent, now with alcohol w/d - labs - iv - xray - supportive care - observe [id number] pt is feeling slightly improved pt is made aware of his medical results agrees with admission 01/30/18 17:19 hospitalists contacted, made aware, agrees with admission; would like to consult Psych Re-evaluation Time: 16:45 Reassessment Condition: Improving,but remains with symptoms - Critical Care Critical Care Minutes: 45 minutes Critical Care Time: Excluding Proc Time Narrative Critical Care (Text): 01/30/18 17:20 critical care time: 45min, excluding procedure time, excluding time teaching residents/students/mid-level providers; including initial eval/diagnosis, diagnostic interpretation, re-eval, consultations, final disposition - Lab Interpretations I have reviewed the lab results: Yes Interpretation: Abnormal lab values (elevated NA, elevated Lactic; elevated ETOH ) - RAD Interpretation Narrative RAD Interpretations (Text): 01/30/18 17:21 poor insp effort, otherwise WNL Radiology Orders: 01/30/18 15:05 CHEST PORTABLE [RAD] Stat Psychologist [employer]: ED Physician - EKG Interpretation EKG Interpretation (Text): 01/30/18 17:21 Sinus tach at 110 bpm, normal axis, no ectopy, incomplete RBBB, no st-t changes , ABNL EKG; unchanged compare with old ekg 01/2018 Interpreted by ED Physician: Yes Type: 12 lead EKG Comparison: Similar to previous EKG - Medication Orders Current Medication Orders: Famotidine (Pepcid) 40 mg PO HS LAWSON Folic Acid (Folic Acid) 1 mg PO DAILY [place] Multivitamins/Vitamin C 10 ml/Thiamine HCl 100 mg/ Folic Acid 1 mg/ Sodium Chloride 1,011.2 mls @ 100 mls/hr IV ONCE ONE Stop: 01/31/18 01:10 Last Admin: 01/30/18 16:01 Dose: 100 mls/hr eMAR Start Stop Document 01/30/18 16:01 [email or web address] (Rec: 01/30/18 16:01 [email or web address] [facility]- [id number]) Intravenous Solution Start Date 01/30/18 Start Time 16:01 End Date 01/30/18 Lorazepam (Ativan) 2 mg PO Q6H [place] PRN Reason: Protocol Lorazepam (Ativan) 2 mg IVP Q2H PRN; Protocol PRN Reason: Agitation Multivitamins/Minerals (Therapeutic-M Tab) 1 tab PO 0800 [place] Thiamine HCl (Vitamin B1 Tab) 100 mg PO DAILY LAW[place] Discontinued Medications Lorazepam (Ativan) 2 mg IVP STAT STA Stop: 01/30/18 15:05 Last Admin: 01/30/18 16:01 Dose: 2 mg IVP Administration Document 01/30/18 16:01 [email or web address] (Rec: 01/30/18 16:01 [facility]- [id number]) Charges for Administration # of IVP Administrations 1 Disposition/Present on Arrival - Present on Arrival Any Indicators Present on Arrival: No History of DVT/PE: No History of Uncontrolled Diabetes: No Urinary Catheter: No History of Decub. Ulcer: No History Surgical Site Infection Following: None - Disposition Have Diagnosis and Disposition been Completed?: Yes Diagnosis: Alcohol withdrawal hallucinosis, Alcohol abuse, Depressive disorder, Dehydration Disposition: HOSPITALIZED Disposition Time: 17:00 Patient Plan: Admission, Telemetry Condition: STABLE
[2018-01-30 16:16] LABS: VENOUS BLOOD GAS BASE EXCESS -0.9 mmol/L (0.0-2.0); VENOUS BLOOD GAS PO2 195 mm/Hg (30-55); VENOUS BLOOD PH 7.47 (7.32-7.43)
[2018-01-30 16:22] LABS: ACETAMINOPHEN < 10.0 ug/ml (10.0-20.0); SALICYLATE < 1 mg/dL (2.0-20.0)
[2018-01-30 16:23] LABS: BASO # 0.06 K/mm3 (0.0-2.0); BASO % 0.8 % (0.0-3.0); EOS # 0.3 (0.0-0.7); EOS % 3.9 % (1.5-5.0); GRAN # 3.29 (1.4-6.5); GRAN % 46.2 % (50.0-68.0); HEMOGLOBIN 14.6 g/dL (14.0-18.0); LYMPH # 3.2 (1.2-3.4); LYMPH % 44.5 % (22.0-35.0); MEAN CELL VOLUME 96.8 fl (80.0-105.0); MEAN CORPUSCULAR HEMOGLOBIN 33.6 pg (25.0-35.0); MEAN CORPUSCULAR HGB CONC 34.7 g/dl (31.0-37.0); MEAN PLATELET VOLUME 9.7 fl (7.0-11.0); MONO # 0.3 (0.1-0.6); MONO % 4.6 % (1.0-6.0); RBC 4.35 10^6/uL (3.5-6.1); RED CELL DISTRIBUTION WIDTH 12.7 % (11.5-14.5); WHITE BLOOD COUNT 7.1 10^3/ul (4.5-11.0)
--- NOTE | 2018-01-30 16:35 | CP.PCM.HP ---
<Vidal Owen - Last Filed: 01/30/18 18:48> History of Present Illness - History of Present Illness History of Present Illness: 27 year old alcoholic, homosexual, substance abuser presenting with alcohol withdrawal symptoms. He reports being sober for a few days and taking Clonazepam twice a day but then having a one drink and trying to stay sober but having restlessness, shakiness, sweating, abdominal pain, nausea, agitation, and anxiety despite taking Clonazepam and having to drink off the withdrawal and thus presents to the ED. He reports that his last drink was this morning and he had a pint of whiskey. He is accompanied by his male partner and a woman who claims to be his mother. PMH: polysubstance abuse (alcohol, heroin, cocaine) PSH: right upper extremity surgical repair s/p accident, appendectomy, right ankle surgery Social History: 15 pack year history, alcohol abuse, marijuana, coccaine and methamphetamine use. Hospitalization: Multiple in past month for alcohol Intoxication/Withdrawal FMH: DM ALL: NKDA Medication: Clonazepam BID Present on Admission - Present on Admission Any Indicators Present on Admission: No Review of Systems - Review of Systems All systems: reviewed and no additional remarkable complaints except Review of Systems: as per HPI Past Patient History - Infectious Disease Hx of Infectious Diseases: None - Tetanus Immunizations Tetanus Immunization: Unknown - Past Social History Smoking Status: Heavy Smoker > 10 Cigarettes Daily - CARDIAC Hx Cardiac Disorders: No - PULMONARY Hx Respiratory Disorders: No - NEUROLOGICAL Hx Neurological Disorder: No - HEENT Hx HEENT Problems: No - RENAL Hx Chronic Kidney Disease: No - ENDOCRINE/METABOLIC Hx Endocrine Disorders: No - HEMATOLOGICAL/ONCOLOGICAL Hx Blood Disorders: No - INTEGUMENTARY Hx Dermatological Problems: No - MUSCULOSKELETAL/RHEUMATOLOGICAL Hx Musculoskeletal Disorders: Yes Hx Fractures: Yes - GASTROINTESTINAL Hx Gastrointestinal Disorders: No - GENITOURINARY/GYNECOLOGICAL Hx Genitourinary Disorders: No - PSYCHIATRIC Hx Psychophysiologic Disorder: Yes Hx Anxiety: Yes Hx Depression: Yes Hx Panic Symptoms: Yes Hx Substance Use: Yes - SURGICAL HISTORY Hx Appendectomy: Yes Hx Musculoskeletal Surgery: Yes Hx Orthopedic Surgery: Yes - ANESTHESIA Hx Anesthesia: Yes Hx Anesthesia Reactions: No Hx Malignant Hyperthermia: No Meds Allergies/Adverse Reactions: Allergies Allergy/AdvReac Type Severity Reaction Status Date / Time No Known Allergies Allergy Verified 01/14/18 16:38 Physical Exam - Constitutional Appears: Non-toxic, No Acute Distress - Head Exam Head Exam: ATRAUMATIC, NORMOCEPHALIC - Eye Exam Eye Exam: EOMI, Normal appearance - ENT Exam ENT Exam: Mucous Membranes Moist, Normal Oropharynx - Neck Exam Neck exam: Positive for: Normal Inspection - Respiratory Exam Respiratory Exam: Clear to Auscultation Bilateral, NORMAL BREATHING PATTERN. absent: Accessory Muscle Use - Cardiovascular Exam Cardiovascular Exam: Tachycardia, +S1, +S2 - GI/Abdominal Exam GI & Abdominal Exam: Soft. absent: Guarding, Rebound - Extremities Exam Extremities exam: Positive for: normal inspection. Negative for: joint swelling , pedal edema - Back Exam Back exam: NORMAL INSPECTION - Neurological Exam Neurological exam: Alert, CN II-XII Intact, Oriented x3 - Psychiatric Exam Psychiatric exam: Normal Affect, Normal Mood - Skin Skin Exam: Dry, Intact, Normal Color, Warm Results - Vital Signs Recent Vital Signs: Last Vital Signs Temp 97.8 F 01/30/18 14:52 Pulse 104 H 01/30/18 14:52 Resp 18 01/30/18 14:52 BP 139/87 01/30/18 14:52 Pulse Ox 99 01/30/18 14:52 - Labs Result Diagrams: 01/30/18 16:06 01/30/18 16:06 Labs: Laboratory Results - last 24 hr 01/30/18 01/30/18 01/30/18 16:06 16:06 16:06 WBC 7.1 D RBC 4.35 Hgb 14.6 Hct 42.1 MCV 96.8 MCH 33.6 MCHC 34.7 RDW 12.7 Plt Count 284 MPV 9.7 Gran % 46.2 L Lymph % (Auto) 44.5 H [place] % (Auto) 4.6 Eos % (Auto) 3.9 Baso % (Auto) 0.8 Gran # 3.29 Lymph # (Auto) 3.2 [place] # (Auto) 0.3 Eos # (Auto) 0.3 Baso # (Auto) 0.06 pO2 VBG pH VBG pCO2 VBG HCO3 VBG Total CO2 VBG O2 Sat (Calc) VBG Base Excess VBG Potassium Sodium Chloride Glucose Lactate FiO2 Venous Blood Potassium Salicylates < 1 L Acetaminophen < 10.0 L Alcohol, Quantitative 276 H 01/30/18 16:06 WBC RBC Hgb Hct MCV MCH MCHC RDW Plt Count MPV Gran % Lymph % (Auto) [place] % (Auto) Eos % (Auto) Baso % (Auto) Gran # Lymph # (Auto) [place] # (Auto) Eos # (Auto) Baso # (Auto) pO2 195 H VBG pH 7.47 H VBG pCO2 30.0 L VBG HCO3 21.8 VBG Total CO2 22.7 VBG O2 Sat (Calc) 98.5 H VBG Base Excess -0.9 L VBG Potassium 4.0 Sodium 146.0 Chloride 113.0 H Glucose 104 Lactate 3.0 H FiO2 21.0 Venous Blood Potassium 4.0 Salicylates Acetaminophen Alcohol, Quantitative Assessment & Plan - Assessment and Plan (Free Text) Assessment: 27 year old alcoholic, homosexual, drug abuser presenting intoxicated with concerns for alcohol withdrawal symptoms. Plan: 1) Alcohol withdrawal symptoms - EKG shows tachycardia - BAL of 276 in ED - Chest X-ray negative - Greater than 30 minutes spent counselling the patient on alcohol cessation - Ativan 2 mg IV q2h PRN - Ativan 2 mg q6h PO [place] - Aspiration, fall, seizure precautions - CIWA continuos monitoring protocol - MV, Folic acid, Thiamine - Telemetry monitoring 2) Hypernatremia secondary to dehydration - NS 100 ml/hr - Repeat CMP in the morning - Greater than 30 minutes spent counselling the patient on alcohol cessation Case reviewed and discussed with attending physician Dr. Zendejas - Date & Time Date: 01/30/18 Time: 16:30 <Kip Zendejas - Last Filed: 01/31/18 12:34> Results - Vital Signs Recent Vital Signs: Last Vital Signs Temp 98.3 F 01/31/18 06:00 Pulse 63 01/31/18 10:00 Resp 20 01/31/18 06:00 BP 126/79 01/31/18 06:00 Pulse Ox 95 01/31/18 06:00 - Labs Result Diagrams: 01/31/18 06:15 01/31/18 06:15 Labs: Laboratory Results - last 24 hr 01/30/18 01/30/18 01/30/18 16:06 16:06 16:06 WBC 7.1 D RBC 4.35 Hgb 14.6 Hct 42.1 MCV 96.8 MCH 33.6 MCHC 34.7 RDW 12.7 Plt Count 284 MPV 9.7 Gran % 46.2 L Lymph % (Auto) 44.5 H [place] % (Auto) 4.6 Eos % (Auto) 3.9 Baso % (Auto) 0.8 Gran # 3.29 Lymph # (Auto) 3.2 [place] # (Auto) 0.3 Eos # (Auto) 0.3 Baso # (Auto) 0.06 pO2 VBG pH VBG pCO2 VBG HCO3 VBG Total CO2 VBG O2 Sat (Calc) VBG Base Excess VBG Potassium Sodium 149 H Chloride 114 H Glucose Lactate FiO2 Potassium 4.2 Carbon Dioxide 20 L Anion Gap 19 BUN 13 Creatinine 0.8 Est GFR ( Amer) > 60 Est GFR (Non-Af Amer) > 60 Random Glucose 105 Calcium 10.0 Phosphorus 3.4 Magnesium 2.1 Total Bilirubin 0.3 AST 89 H D ALT 145 H Alkaline Phosphatase 89 Total Protein 7.4 Albumin 4.1 Globulin 3.2 Albumin/Globulin Ratio 1.3 TSH 3rd Generation Venous Blood Potassium Urine Color Urine Appearance Urine pH Ur Specific [place] Urine Protein Urine Glucose (UA) Urine Ketones Urine Blood Urine Nitrate Urine Bilirubin Urine Urobilinogen Ur Leukocyte Esterase Salicylates < 1 L Urine Opiates Screen Urine Methadone Screen Acetaminophen < 10.0 L Ur Barbiturates Screen Ur Phencyclidine Scrn Ur Amphetamines Screen U Benzodiazepines Scrn U Oth Cocaine Metabols U Cannabinoids Screen Alcohol, Quantitative 01/30/18 01/30/18 01/30/18 16:06 16:06 18:32 WBC RBC Hgb Hct MCV MCH MCHC RDW Plt Count MPV Gran % Lymph % (Auto) [place] % (Auto) Eos % (Auto) Baso % (Auto) Gran # Lymph # (Auto) [place] # (Auto) Eos # (Auto) Baso # (Auto) pO2 195 H VBG pH 7.47 H VBG pCO2 30.0 L VBG HCO3 21.8 VBG Total CO2 22.7 VBG O2 Sat (Calc) 98.5 H VBG Base Excess -0.9 L VBG Potassium 4.0 Sodium 146.0 Chloride 113.0 H Glucose 104 Lactate 3.0 H FiO2 21.0 Potassium Carbon Dioxide Anion Gap BUN Creatinine Est GFR ( Amer) Est GFR (Non-Af Amer) Random Glucose Calcium Phosphorus Magnesium Total Bilirubin AST ALT Alkaline Phosphatase Total Protein Albumin Globulin Albumin/Globulin Ratio TSH 3rd Generation 1.76 Venous Blood Potassium 4.0 Urine Color Yellow Urine Appearance Clear Urine pH 6.5 Ur Specific [place] 1.020 Urine Protein Negative Urine Glucose (UA) Negative Urine Ketones Negative Urine Blood Negative Urine Nitrate Negative Urine Bilirubin Negative Urine Urobilinogen 0.2 Ur Leukocyte Esterase Negative Salicylates Urine Opiates Screen Urine Methadone Screen Acetaminophen Ur Barbiturates Screen Ur Phencyclidine Scrn Ur Amphetamines Screen U Benzodiazepines Scrn U Oth Cocaine Metabols U Cannabinoids Screen Alcohol, Quantitative 276 H 01/30/18 01/30/18 01/30/18 18:32 20:17 23:30 WBC RBC Hgb Hct MCV MCH MCHC RDW Plt Count MPV Gran % Lymph % (Auto) [place] % (Auto) Eos % (Auto) Baso % (Auto) Gran # Lymph # (Auto) [place] # (Auto) Eos # (Auto) Baso # (Auto) pO2 74 H 56 H VBG pH 7.38 7.39 VBG pCO2 43.0 44.0 VBG HCO3 25.4 26.6 VBG Total CO2 26.7 28.0 VBG O2 Sat (Calc) 95.1 H 91.6 H VBG Base Excess 0.0 1.2 VBG Potassium 3.8 3.9 Sodium 145.0 145.0 Chloride 113.0 H 114.0 H Glucose 99 97 Lactate 2.2 H 1.3 FiO2 21.0 21.0 Potassium Carbon Dioxide Anion Gap BUN Creatinine Est GFR ( Amer) Est GFR (Non-Af Amer) Random Glucose Calcium Phosphorus Magnesium Total Bilirubin AST ALT Alkaline Phosphatase Total Protein Albumin Globulin Albumin/Globulin Ratio TSH 3rd Generation Venous Blood Potassium 3.8 3.9 Urine Color Urine Appearance Urine pH Ur Specific [place] Urine Protein Urine Glucose (UA) Urine Ketones Urine Blood Urine Nitrate Urine Bilirubin Urine Urobilinogen Ur Leukocyte Esterase Salicylates Urine Opiates Screen Negative Urine Methadone Screen Negative Acetaminophen Ur Barbiturates Screen Negative Ur Phencyclidine Scrn Negative Ur Amphetamines Screen Negative U Benzodiazepines Scrn Negative U Oth Cocaine Metabols Negative U Cannabinoids Screen Positive H Alcohol, Quantitative 01/31/18 01/31/18 06:15 06:15 WBC 6.0 RBC 3.87 Hgb 12.6 L D Hct 38.1 L MCV 98.4 MCH 32.6 MCHC 33.1 RDW 12.9 Plt Count 233 MPV 9.6 Gran % 39.3 L Lymph % (Auto) 46.3 H [place] % (Auto) 7.8 H Eos % (Auto) 5.8 H Baso % (Auto) 0.8 Gran # 2.36 Lymph # (Auto) 2.8 [place] # (Auto) 0.5 Eos # (Auto) 0.4 Baso # (Auto) 0.05 pO2 VBG pH VBG pCO2 VBG HCO3 VBG Total CO2 VBG O2 Sat (Calc) VBG Base Excess VBG Potassium Sodium 143 Chloride 112 H Glucose Lactate FiO2 Potassium 4.4 Carbon Dioxide 23 Anion Gap 12 BUN 18 Creatinine 0.9 Est GFR ( Amer) > 60 Est GFR (Non-Af Amer) > 60 Random Glucose 90 Calcium 8.6 Phosphorus Magnesium Total Bilirubin 0.3 AST 55 ALT 113 H Alkaline Phosphatase 53 Total Protein 6.0 Albumin 3.4 Globulin 2.6 Albumin/Globulin Ratio 1.3 TSH 3rd Generation Venous Blood Potassium Urine Color Urine Appearance Urine pH Ur Specific [place] Urine Protein Urine Glucose (UA) Urine Ketones Urine Blood Urine Nitrate Urine Bilirubin Urine Urobilinogen Ur Leukocyte Esterase Salicylates Urine Opiates Screen Urine Methadone Screen Acetaminophen Ur Barbiturates Screen Ur Phencyclidine Scrn Ur Amphetamines Screen U Benzodiazepines Scrn U Oth Cocaine Metabols U Cannabinoids Screen Alcohol, Quantitative Attending/Attestation - Attestation I have personally seen and examined this patient.: Yes I have fully participated in the care of the patient.: Yes I have reviewed all pertinent clinical information: Yes Notes (Text): 01/31/18 12:31 Medical record note made by the resident after discussion with my direction and input after the patient was personally seen and examined by me. I have reviewed the chart and agree that the record accurately reflects by personal performance of the history, physical exam, data review, and medical decision-making, in the course for the patient. I have also personally directed the plan of care. 27 yrs old male with H/O alcohol abuse and drug abuse is admitted with alcohol withdrawal, denies suicidal ideation at this time. We will monitor patient , start on IV Fluid and CIWA.Patient follow with [facility] [place] [facility] program, has scheduled appointment on Thursday. We will follow up electrolyte. Issue of ongoing alcohol and drug abuse was discussed in detail with him Management plan was discussed in detail with patient. Education was provided.
[2018-01-30 16:38] LABS: ALB/GLOB RATIO 1.3 (1.1-1.8); ALBUMIN 4.1 g/dL (3.0-4.8); ALT/SGPT 145 U/L (7-56); AST/SGOT 89 U/L (17-59); BLOOD UREA NITROGEN 13 mg/dL (7-21); GFR AFRICAN-AMERICAN > 60; GFR NON-AFRICAN AMERICAN > 60
[2018-01-30] MEDS ORDERED: Sodium Chloride 0.9% 1,000 ML IV SCH (19:00)
[2018-01-30 19:02] LABS: PH,URINE 6.5 (4.7-8.0); URINE BILIRUBIN NEGATIVE (NEGATIVE); URINE BLOOD NEGATIVE (NEGATIVE); URINE GLUCOSE (UA) NEGATIVE (NEGATIVE); URINE LEUKOCYTE ESTERASE NEGATIVE Leu/uL (NEGATIVE); URINE PROTEIN NEGATIVE mg/dL (<30 mg/dL); URINE UROBILINOGEN 0.2 E.U./dL (<1 E.U./dL)
[2018-01-30 19:04] LABS: URINE APPEARANCE CLEAR (CLEAR); URINE COLOR YELLOW (YELLOW)
[2018-01-30 19:30] LABS: BARBITURATES, UR NEGATIVE (NEGATIVE); BENZODIAZEPINES, UR NEGATIVE (NEGATIVE); OPIATES, UR NEGATIVE (NEGATIVE); PHENCYCLIDINE, UR NEGATIVE (NEGATIVE)
[2018-01-30 20:28] LABS: VENOUS BLOOD GAS PO2 74 mm/Hg (30-55); VENOUS BLOOD PH 7.38 (7.32-7.43)
[2018-01-30 23:35] VITALS: RESP 20
[2018-01-30 23:45] LABS: VENOUS BLOOD GAS BASE EXCESS 1.2 mmol/L (0.0-2.0); VENOUS BLOOD GAS PO2 56 mm/Hg (30-55); VENOUS BLOOD PH 7.39 (7.32-7.43)
[2018-01-31] MEDS: Sodium Chloride 0.9% 1,000 ML IV SCH ×2 (00:10→12:09)
[2018-01-31 06:50] LABS: BASO # 0.05 K/mm3 (0.0-2.0); BASO % 0.8 % (0.0-3.0); EOS # 0.4 (0.0-0.7); EOS % 5.8 % (1.5-5.0); GRAN # 2.36 (1.4-6.5); GRAN % 39.3 % (50.0-68.0); HEMOGLOBIN 12.6 g/dL (14.0-18.0); LYMPH # 2.8 (1.2-3.4); LYMPH % 46.3 % (22.0-35.0); MEAN CELL VOLUME 98.4 fl (80.0-105.0); MEAN CORPUSCULAR HEMOGLOBIN 32.6 pg (25.0-35.0); MEAN CORPUSCULAR HGB CONC 33.1 g/dl (31.0-37.0); MEAN PLATELET VOLUME 9.6 fl (7.0-11.0); MONO # 0.5 (0.1-0.6); MONO % 7.8 % (1.0-6.0); RBC 3.87 10^6/uL (3.5-6.1); RED CELL DISTRIBUTION WIDTH 12.9 % (11.5-14.5)
[2018-01-31 07:00] LABS: ALB/GLOB RATIO 1.3 (1.1-1.8); ALBUMIN 3.4 g/dL (3.0-4.8); ALT/SGPT 113 U/L (7-56); AST/SGOT 55 U/L (17-59); BLOOD UREA NITROGEN 18 mg/dL (7-21); CALCIUM 8.6 mg/dL (8.4-10.5); GFR AFRICAN-AMERICAN > 60; GFR NON-AFRICAN AMERICAN > 60
[2018-01-31] MEDS ORDERED: Multivitamin With Minerals Tab PO SCH (08:00)
--- NOTE | 2018-01-31 09:05 | RAD ---
HISTORY: alcohol w/d COMPARISON: Portable chest 01/10/2018 FINDINGS: LUNGS: Diminished history volume. No acute infiltrate bilaterally. PLEURA: No significant pleural effusion identified, no pneumothorax apparent. CARDIOVASCULAR: Normal. OSSEOUS STRUCTURES: No significant abnormalities. VISUALIZED UPPER ABDOMEN: Normal. OTHER FINDINGS: None. IMPRESSION: Diminished inspiratory volume however no interval infiltrate pleural effusion or pneumothorax identified. No pulmonary vascular derangement.
--- NOTE | 2018-01-31 11:22 | CP.PCM.PN ---
<Vidal Owen - Last Filed: 01/31/18 11:32> Subjective - Date & Time of Evaluation Date of Evaluation: 01/31/18 Time of Evaluation: 09:40 - Subjective Subjective: Patient seen and examined at bedside. Patient denies any nausea, vomiting, diarrhea, or tremors in the interim. Nurse reports no events overnight. Objective - Vital Signs/Intake and Output Vital Signs (last 24 hours): Temp Pulse Resp BP Pulse Ox 98.3 F 71 20 126/79 95 01/31/18 06:00 01/31/18 06:00 01/31/18 06:00 01/31/18 06:00 01/31/18 06:00 Intake and Output: 01/31/18 01/31/18 06:59 18:59 Intake Total 2100 Output Total 0 Balance 2100 - Medications Medications: Current Medications Famotidine (Pepcid) 40 mg PO HS [facility] Last Admin: 01/30/18 22:04 Dose: 40 mg Folic Acid (Folic Acid) 1 mg PO DAILY [facility] Last Admin: 01/31/18 11:09 Dose: 1 mg Sodium Chloride (Sodium Chloride 0.9%) 1,000 mls @ 100 mls/hr IV .Q10H [facility] Last Admin: 01/31/18 00:10 Dose: 100 mls/hr Lorazepam (Ativan) 2 mg PO Q6H [facility] PRN Reason: Protocol Last Admin: 01/31/18 11:09 Dose: 2 mg Lorazepam (Ativan) 1 mg PO Q3H PRN; Protocol PRN Reason: Symptoms of alcohol withdrawl Multivitamins/Minerals (Therapeutic-M Tab) 1 tab PO 0800 [facility] Last Admin: 01/31/18 08:02 Dose: 1 tab Ondansetron HCl (Zofran Inj) 4 mg IVP Q4H PRN PRN Reason: Nausea/Vomiting Thiamine HCl (Vitamin B1 Tab) 100 mg PO DAILY [facility] Last Admin: 01/31/18 11:09 Dose: 100 mg - Labs Labs: 01/31/18 06:15 01/31/18 06:15 - Constitutional Appears: Non-toxic, No Acute Distress - Head Exam Head Exam: ATRAUMATIC, NORMOCEPHALIC - Eye Exam Eye Exam: EOMI, Normal appearance - Neck Exam Neck Exam: Normal Inspection - Respiratory Exam Respiratory Exam: Clear to Ausculation Bilateral, NORMAL BREATHING PATTERN. absent: Accessory Muscle Use - Cardiovascular Exam Cardiovascular Exam: RRR, +S1, +S2 - GI/Abdominal Exam GI & Abdominal Exam: Soft, Normal Bowel Sounds - Extremities Exam Extremities Exam: Normal Capillary Refill, Normal Inspection - Back Exam Back Exam: NORMAL INSPECTION. absent: CVA tenderness (L), CVA tenderness (R) - Neurological Exam Neurological Exam: Alert, Awake, Oriented x3 - Psychiatric Exam Psychiatric exam: Normal Affect, Normal Mood - Skin Skin Exam: Dry, Intact, Normal Color, Warm Assessment and Plan - Assessment and Plan (Free Text) Assessment: 27 year old alcoholic, homosexual, drug abuser presenting intoxicated with concerns for alcohol withdrawal symptoms. Plan: 1) Alcohol withdrawal symptoms - EKG shows tachycardia - BAL of 276 in ED - Chest X-ray negative - Greater than 30 minutes spent counselling the patient on alcohol cessation - Ativan 2 mg PO q3h PRN - Ativan 2 mg q6h PO [facility] - Aspiration, fall, seizure precautions - [facility] continuos monitoring protocol - MV, Folic acid, Thiamine - Telemetry discontinued, patient to be transferred to medical-surgical floor. 2) Hypernatremia; resolved - Will discontinue fluids 3) Hypokalemia - K repleted PO 4)Alcohol cessation counseling - Greater than 30 minutes spent counselling the patient on alcohol cessation. - Patient also counselled on abstaining from drugs 5) DVT/GI prophylaxis - Pepcid 40 mg HS - SCD Case reviewed and discussed with attending physician, Dr. Zendejas. <Kip Zendejas - Last Filed: 01/31/18 12:36> Objective - Vital Signs/Intake and Output Vital Signs (last 24 hours): Temp Pulse Resp BP Pulse Ox 98.3 F 63 20 126/79 95 01/31/18 06:00 01/31/18 10:00 01/31/18 06:00 01/31/18 06:00 01/31/18 06:00 Intake and Output: 01/31/18 01/31/18 06:59 18:59 Intake Total 2100 Output Total 0 Balance 2100 - Medications Medications: Current Medications Famotidine (Pepcid) 40 mg PO HS [facility] Last Admin: 01/30/18 22:04 Dose: 40 mg Folic Acid (Folic Acid) 1 mg PO DAILY [facility] Last Admin: 01/31/18 11:09 Dose: 1 mg Sodium Chloride (Sodium Chloride 0.9%) 1,000 mls @ 100 mls/hr IV .Q10H [facility] Last Admin: 01/31/18 12:09 Dose: Not Given Lorazepam (Ativan) 2 mg PO Q6H [facility] PRN Reason: Protocol Last Admin: 01/31/18 11:09 Dose: 2 mg Lorazepam (Ativan) 1 mg PO Q3H PRN; Protocol PRN Reason: Symptoms of alcohol withdrawl Last Admin: 01/31/18 12:06 Dose: 1 mg Multivitamins/Minerals (Therapeutic-M Tab) 1 tab PO 0800 [facility] Last Admin: 01/31/18 08:02 Dose: 1 tab Ondansetron HCl (Zofran Inj) 4 mg IVP Q4H PRN PRN Reason: Nausea/Vomiting Quetiapine Fumarate (Seroquel) 50 mg PO AMHS [facility] PRN Reason: Protocol Thiamine HCl (Vitamin B1 Tab) 100 mg PO DAILY [facility] Last Admin: 01/31/18 11:09 Dose: 100 mg - Labs Labs: 01/31/18 06:15 01/31/18 06:15 Attending/Attestation - Attestation I have personally seen and examined this patient.: Yes I have fully participated in the care of the patient.: Yes I have reviewed all pertinent clinical information, including history, physical exam and plan: Yes Notes (Text): 01/31/18 12:35 Medical record note made by the resident after discussion with my direction and input after the patient was personally seen and examined by me. I have reviewed the chart and agree that the record accurately reflects by personal performance of the history, physical exam, data review, and medical decision-making, in the course for the patient. I have also personally directed the plan of care. 27 yrs old male with H/O alcohol abuse and drug abuse was admitted with alcohol withdrawal, remain stable over night.Last intake of alcohol ingestion was yesterday morning.We will continue CIWA .Telemetry can be discontinued. Issue of ongoing alcohol and drug abuse was discussed in detail with him Management plan was discussed in detail with patient. Education was provided.
[2018-01-31 16:06] VITALS: BP 124/79; PULSE 70; TEMP 98.4; O2SAT 94
--- NOTE | 2018-01-31 23:19 | CARD ---
APPROVED REPORT EKG Measurement Heart [id number] CT 152P43 [id number] <Conclusion> Sinus tachycardia Incomplete right bundle branch block Borderline ECG
--- NOTE | 2018-02-01 08:33 | CON ---
DATE: HISTORY OF PRESENT ILLNESS: The patient is a 27-year-old white male with mood disorder NOS, severe alcohol use disorder; one prior involuntary admission to [facility] earlier this month for depression, suicidal thoughts and anger; compliant with Seroquel 50 mg a.m. and at bedtime, who was admitted to the medical floor for alcohol withdrawal symptoms. Psychiatry was requested to follow up with patient due to patient's history of depression, suicidal thoughts and patient's involuntary commitments though patient did not report having any suicidal thoughts anywhere in the chart during this admission. I met with patient at bedside, and he is calm, cooperative, alert and well-oriented to circumstances. He recalls me from our prior interview in the ER a few weeks ago prior to his transferring involuntarily to [facility]. He is communicative and can express himself well, and is generally pleasant with this provider and well-related. Patient indicates that he has been depressed, but not hopeless, and is definitely not suicidal. Patient admits he made a mistake by drinking again a few days ago. Prior to that, he was discharged from [facility] after 3-day hospitalization and remained sober for most of the time since discharge. Patient initially felt that Seroquel was sedating; however, became used to the medication, and now he became used to the medication and felt the medication was quite beneficial for his mood. Because of that, he felt confident that he could handle one or two drinks approximately 5 days prior to his presentation here. Unfortunately patient could not stop drinking at that time and this escalated to about a pint of whiskey daily for 2 to 3 days. Patient stopped cold turkey on and Thursday, and remorse; however, found that he was extremely jittery, tremulous, nauseated and anxious, and went to the ER for help with these symptoms. Patient denies that there was any stressor that precipitated his drinking again. He says that he was actually feeling very good and more confident about his ability to control his drinking because of the improvement with Seroquel. Patient admits that he was drinking behind his boyfriend's back, and boyfriend is probably very upset with him for relapsing although this was a very brief relapse. Patient reports a supportive relationship with his boyfriend, and again he indicates that this relapse was brief, and occurred in the setting of having visitors over his home who were drinking in his presence and he decided to have a few drinks in private during the occasion. Thereafter his use escalated. As noted above, patient is coherent and his reliable and he is consistent with his information. Eye contact is good. Focus is good. He is generally pleasant and reactive. He does not appear hopeless or apathetic, and appears to be a reliable and genuine about wanting to stay sober. He denies having any hallucinations since he stopped drinking, and reports that he has been a little bit better this morning. Patient is looking forward to ultimate discharge from the medical floor because he has an appointment at [facility] to see a doctor for psychiatric medication management. PSYCHIATRIC HISTORY: Patient was recently hospitalized at [facility] involuntarily for depression, suicidal thoughts and anger as well as severe alcohol use disorder and withdrawal symptoms for a period of about 3 days and he was discharged on Seroquel 50 mg b.i.d. Patient showed me a picture of this prescription on his phone this morning, so dose was confirmed. Patient reports that he has been compliant with his medication and has felt that it ultimately improved his mood. Patient reports that he follows up with intake at [facility], and now has a doctor's appointment on the coming 02/02/2018, at [facility]. Denies prior hospitalizations. SOCIAL HISTORY: Patient was born and raised in [place]. He lives with his boyfriend for a few months. He is unemployed. Patient denies any drug use except for occasional marijuana use. Patient indicates that he first realized he has drinking problem, was a year ago after a very painful breakup, and patient indicates that he was abstinent from alcohol after discharge from [facility] up until 4 to 5 days ago, and he relapsed for a period of 2 days, then abruptly stopped drinking 2 days thereafter, which led to the presentation to the ER. PHYSICAL EXAMINATION: VITAL SIGNS: Reviewed by this provider and this morning, they are within normal limits at 98.3, 71, 126/79 and 20 at 6:00 a.m. LABORATORY DATA: Reviewed by this provider. CBC shows hemoglobin and hematocrit of 12.6 and 38.1 respectively. Chemistry profile this morning showed ALT decreasing from a value of 145 to 113 from yesterday to today, and AST is within normal limits of 55. Toxicology yesterday was positive for marijuana, and his blood alcohol was 276. MEDICATIONS: Psychiatric medications include 2 mg p.o. every 6 hours and 1 mg p.o. every 3 hours p.r.n. IMPRESSION: Mood disorder not otherwise specified, rule out major depression, alcohol use disorder severe, with likely contribution of substance abuse mood disorder as well as alcohol withdrawal symptoms. RECOMMENDATIONS: We will restart Seroquel 50 mg a.m and at bedtime as patient reported that this medication was beneficial for him after discharged from [facility]. Patient is agreeable to restart his medication. We will continue with Ativan for alcohol withdrawal. Patient does not pose the risk to himself or others, and denies having any suicidal thoughts, and there is no indication of patient expressing having thoughts of harming himself or others while he is being hospitalized at this time. Patient is future-oriented and reports plan to follow up this doctor's appointment he has at [facility] and he is looking to explore the option of Vivitrol injections with attempts to help with his alcohol use. Psychiatry will sign off at this time; please re-consult p.r.n. if there is any acute changes in patient's presentation. Patient is psychiatrically cleared for discharge. Please note that patient did not give this provider permission to speak with his boyfriend, Ortega at this time. Elisabeth Mi MD
== END 2018-01-31 18:00 | disposition left against medical advice (07) ==
LOC: ED 14:30 → INTOOBSV 16:01 → ERH 16:01 → 2RNO 17:18 → 5RSO 01-31 12:29
PROVIDERS: ADMIT Internal Medicine; ATTEND Internal Medicine
DX: F10.239 Alcohol dependence with withdrawal, unspecified (principal); F10.229 Alcohol dependence with intoxication, unspecified; Y90.8 Blood alcohol level of 240 mg/100 ml or more; E87.0 Hyperosmolality and hypernatremia; E86.0 Dehydration; E87.6 Hypokalemia; F32.9 Major depressive disorder, single episode, unspecified; F12.90 Cannabis use, unspecified, uncomplicated
CPT/HCPCS: 36415; 71045; 80053; 80320; 80324; 80329; 80345; 80346; 80349; 80353; 80358; 80361; 81003; 82803; 83735; 83992; 84100; 84443; 85025; 93005; 96374; 99285; G0378; J2060; J2405; J3411; J7040

== ENCOUNTER 2018-02-01 20:39 | Emergency (ER) | payer OTHER ==
[2018-02-01 20:42] VITALS: TEMP 98.3; BMI 26.6
[2018-02-01 20:55] VITALS: O2SAT 97
[2018-02-01] MEDS ORDERED: Multivitamin (MVI) 10 ML, Thiamine 100 MG, Folic Acid 1 MG in Sodium Chloride 0.9% 1,00... IV ONE (21:05)
--- NOTE | 2018-02-01 21:07 | ED PDOC ---
Arrival/HPI - General Chief Complaint: Alcohol Ingestion Time Seen by Provider: 02/01/18 20:45 Historian: Patient - History of Present Illness Narrative History of Present Illness (Text): 02/01/18 21:06 A 27 year old male, whose past medical history includes anxiety, depression, panic disorder, substance abuse, and intoxication, presents to the emergency department complaining of alcohol withdrawal and anxiety. Patient reports experiencing chest pain and anxiety. Patient drank alcohol attempting to reduce/ eliminate symptoms but had no relief. Patient has no other complaints at this time. No PMD Past Medical History - Provider Review Nursing Documentation Reviewed: Yes - Past History Past History: No Previous (alcohol dependent) - Infectious Disease Hx of Infectious Diseases: None - Tetanus Immunization Tetanus Immunization: Unknown - Past Medical History Past Medical History: No Previous - Cardiac Hx Cardiac Disorders: No - Pulmonary Hx Respiratory Disorders: No - Neurological Hx Neurological Disorder: No - HEENT Hx HEENT Disorder: No - Renal Hx Renal Disorder: No - Endocrine/Metabolic Hx Endocrine Disorders: No - Hematological/Oncological Hx Blood Disorders: No - Integumentary Hx Dermatological Disorder: No - Musculoskeletal/Rheumatological Hx Musculoskeletal Disorders: Yes Hx Fractures: Yes - Gastrointestinal Hx Gastrointestinal Disorders: No - Genitourinary/Gynecological Hx Genitourinary Disorders: No - Psychiatric Hx Psychophysiologic Disorder: Yes Hx Anxiety: Yes Hx Depression: Yes Hx Panic Disorder: Yes Hx Substance Use: Yes - Past Surgical History Past Surgical History: No Previous - Surgical History Hx Appendectomy: Yes Hx Musculoskeletal Surgery: Yes Hx Orthopedic Surgery: Yes - Anesthesia Hx Anesthesia: Yes Hx Anesthesia Reactions: No Hx Malignant Hyperthermia: No - Suicidal Assessment Feels Threatened In Home Enviroment: No Family/Social History - Physician Review Nursing Documentation Reviewed: Yes Family/Social History: No Known Family HX Smoking Status: Heavy Smoker > 10 Cigarettes Daily Hx Alcohol Use: Yes Hx Substance Use: Yes Hx Substance Use Treatment: No Allergies/Home Meds Allergies/Adverse Reactions: Allergies No Known Allergies Allergy (Verified 02/01/18 20:42) Home Medications: Home Meds Medication Instructions Recorded Confirmed No Known Home Med 01/13/18 02/01/18 Review of Systems - Physician Review All systems were reviewed & negative as marked: Yes - Review of Systems Cardiovascular: Chest Pain Psychiatric: Anxiety Physical Exam Vital Signs Reviewed: Yes Vital Signs Temp Pulse Resp BP Pulse Ox 02/01/18 20:42 98.3 F 110 H 21 120/80 97 Temperature: Afebrile Blood Pressure: Normal Pulse: Regular Respiratory Rate: Normal Appearance: Positive for: Other (intoxicated) Mental Status: Positive for: Alert and Oriented X 3 - Systems Exam Head: Present: Atraumatic, Normocephalic Pupils: Present: PERRL Extroacular Muscles: Present: EOMI Conjunctiva: Present: Normal Mouth: Present: Moist Mucous Membranes Neck: Present: Normal Range of Motion Respiratory/Chest: Present: Clear to Auscultation, Good Air Exchange. No: Respiratory Distress, Accessory Muscle Use Cardiovascular: Present: Regular Rate and Rhythm, Normal S1, S2. No: Murmurs Abdomen: Present: Normal Bowel Sounds. No: Tenderness, Distention, Peritoneal Signs Back: Present: Normal Inspection Upper Extremity: Present: Normal Inspection. No: Cyanosis, Edema Lower Extremity: Present: Normal Inspection. No: Edema Neurological: Present: GCS=15, CN II-XII Intact, Speech Normal Skin: Present: Warm, Dry, Normal Color. No: Rashes Psychiatric: Present: Alert, Oriented x 3, Normal Insight, Normal Concentration Medical Decision Making ED Course and Treatment: 02/01/18 21:09 Impression: 27 year old male with alcohol withdrawal, chest pain, and anxiety. No acute findings on physical examination. Plan: -- EKG -- Chest X-ray -- Labs -- IV Fluids -- Ativan -- Reassess and disposition Prior Visits: Notes and results from previous visits were reviewed. Patient was last seen in the emergency department on 01/30/2018 for worsening severe jitteriness/severe anxiousness, palpitations/tremors. Patient was admitted. Progress Notes: EKG: Ordered, reviewed, and independently interpreted the EKG. Rate : 92 BPM Rhythm : NSR Interpretation : Incomplete right bundle branch block. Comparison : No previous EKG for comparison. - Lab Interpretations Lab Results: 02/01/18 21:20 02/01/18 21:20 Lab Results 02/01/18 21:20: Alcohol, Quantitative 270 H 02/01/18 21:20: Sodium 143, Potassium 3.3 L, Chloride 105, Carbon Dioxide 23, Anion Gap 18, BUN 18, Creatinine 0.8, Est GFR ( Amer) > 60, Est GFR (Non- Af Amer) > 60, Random Glucose 106, Calcium 9.9, Total Bilirubin 0.5, AST 48, ALT 96 H, Alkaline Phosphatase 63, Lactate Dehydrogenase 515, Total Creatine Kinase 280 H, CK-MB (CK-2) 2.0, CK-MB (CK-2) % Cancelled, Troponin I < 0.01, Total Protein 7.3, Albumin 4.3, Globulin 3.0, Albumin/Globulin Ratio 1.5 02/01/18 21:20: WBC 11.1 H D, RBC 4.60, Hgb 15.3 D, Hct 43.3, MCV 94.1 D, MCH 33.3, MCHC 35.3, RDW 12.6, Plt Count 241, MPV 9.6, Gran % 57.5, Lymph % (Auto) 32.3, [place] % (Auto) 6.6 H, Eos % (Auto) 3.2, Baso % (Auto) 0.4, Gran # 6.39, Lymph # (Auto) 3.6 H, [place] # (Auto) 0.7 H, Eos # (Auto) 0.4, Baso # (Auto) 0.04 I have reviewed the lab results: Yes - RAD Interpretation Radiology Orders: 02/01/18 21:06 CHEST PORTABLE [RAD] Stat - Medication Orders Current Medication Orders: Discontinued Medications Diphenhydramine HCl (Benadryl) 25 mg IVP STAT STA Stop: 02/01/18 22:09 Last Admin: 02/01/18 22:42 Dose: 25 mg IVP Administration Document 02/01/18 22:42 SS (Rec: 02/01/18 22:42 SS [id number]) Charges for Administration # of IVP Administrations 1 Haloperidol Lactate (Haldol) 5 mg IVP STAT STA PRN Reason: Protocol Stop: 02/01/18 22:09 Last Admin: 02/01/18 22:38 Dose: 5 mg IVP Administration Document 02/01/18 22:38 SS (Rec: 02/01/18 22:42 SS [id number]) Charges for Administration # of IVP Administrations 1 Multivitamins/Vitamin C 10 ml/Thiamine HCl 100 mg/ Folic Acid 1 mg/ Sodium Chloride 1,011.2 mls @ 1,000 mls/hr IV .Q1H1M ONE Stop: 02/01/18 22:05 Last Admin: 02/01/18 22:42 Dose: 1,000 mls/hr eMAR Start Stop Document 02/01/18 22:42 SS (Rec: 02/01/18 22:42 SS [id number]) Intravenous Solution Start Date 02/01/18 Start Time 22:42 Lorazepam (Ativan) 1 mg IVP ONCE ONE PRN Reason: Protocol Stop: 02/01/18 21:06 Last Admin: 02/01/18 21:30 Dose: 1 mg IVP Administration Document 02/01/18 21:30 SS (Rec: 02/01/18 21:31 SS [id number]) Charges for Administration # of IVP Administrations 1 Lorazepam (Ativan) 2 mg PO ONCE ONE PRN Reason: Protocol Stop: 02/02/18 03:11 - Scribe Statement The provider has reviewed the documentation as recorded by the Stanley Brian Provider Scribe Attestation: All medical record entries made by the Scribe were at my direction and personally dictated by me. I have reviewed the chart and agree that the record accurately reflects my personal performance of the history, physical exam, medical decision making, and the department course for this patient. I have also personally directed, reviewed, and agree with the discharge instructions and disposition. Disposition/Present on Arrival - Present on Arrival Any Indicators Present on Arrival: No History of DVT/PE: No History of Uncontrolled Diabetes: No Urinary Catheter: No History of Decub. Ulcer: No History Surgical Site Infection Following: None - Disposition Have Diagnosis and Disposition been Completed?: Yes Diagnosis: Alcohol abuse Disposition: HOME/ ROUTINE Disposition Time: 06:00 Patient Plan: Discharge Condition: GOOD Discharge Instructions (ExitCare): Alcohol Abuse and Alcoholism (DC) Additional Instructions: Chidi- Please take better care of yourself. Shen- Dr. Doug Wilks Forms: [employer] (Greenlandic)
[2018-02-01 21:28] LABS: BASO # 0.04 K/mm3 (0.0-2.0); BASO % 0.4 % (0.0-3.0); EOS # 0.4 (0.0-0.7); EOS % 3.2 % (1.5-5.0); GRAN # 6.39 (1.4-6.5); GRAN % 57.5 % (50.0-68.0); HEMOGLOBIN 15.3 g/dL (14.0-18.0); LYMPH # 3.6 (1.2-3.4); LYMPH % 32.3 % (22.0-35.0); MEAN CELL VOLUME 94.1 fl (80.0-105.0); MEAN CORPUSCULAR HEMOGLOBIN 33.3 pg (25.0-35.0); MEAN CORPUSCULAR HGB CONC 35.3 g/dl (31.0-37.0); MEAN PLATELET VOLUME 9.6 fl (7.0-11.0); MONO # 0.7 (0.1-0.6); MONO % 6.6 % (1.0-6.0); RBC 4.6 10^6/uL (3.5-6.1); RED CELL DISTRIBUTION WIDTH 12.6 % (11.5-14.5); WHITE BLOOD COUNT 11.1 10^3/ul (4.5-11.0)
[2018-02-01 21:58] LABS: TROPONIN I < 0.01 ng/mL
[2018-02-01] MEDS ORDERED: DiphenhydrAMINE 50 mg/ml Inj IVP STA (22:08)
[2018-02-01 22:14] LABS: ALB/GLOB RATIO 1.5 (1.1-1.8); ALBUMIN 4.3 g/dL (3.0-4.8); ALT/SGPT 96 U/L (7-56); AST/SGOT 48 U/L (17-59); BLOOD UREA NITROGEN 18 mg/dL (7-21); CALCIUM 9.9 mg/dL (8.4-10.5); GFR AFRICAN-AMERICAN > 60; GFR NON-AFRICAN AMERICAN > 60
[2018-02-02 06:08] VITALS: BP 106/59; PULSE 89; RESP 18
--- NOTE | 2018-02-02 08:29 | RAD ---
HISTORY: "I feel like I can't breathe" COMPARISON: 01/30/2018 FINDINGS: LUNGS: No active pulmonary disease. PLEURA: No significant pleural effusion identified, no pneumothorax apparent. CARDIOVASCULAR: Normal. OSSEOUS STRUCTURES: No significant abnormalities. VISUALIZED UPPER ABDOMEN: Normal. OTHER FINDINGS: None. IMPRESSION: No active disease.
--- NOTE | 2018-02-02 21:21 | CARD ---
APPROVED REPORT EKG Measurement Heart [id number] 158P61 [id number] <Conclusion> Normal sinus rhythm Possible Left atrial enlargement Incomplete right bundle branch block Borderline ECG
== END 2018-02-02 06:29 | disposition home or self-care (01) ==
LOC: ED 20:39
DX: F10.10 Alcohol abuse, uncomplicated (principal); Y90.8 Blood alcohol level of 240 mg/100 ml or more; F41.9 Anxiety disorder, unspecified; F19.10 Other psychoactive substance abuse, uncomplicated
CPT/HCPCS: 71045; 80053; 80320; 82550; 82553; 83615; 84484; 85025; 93005; 96374; 96375; 99283; J1200; J1630; J2060; J3411; J7040

== ENCOUNTER 2018-02-02 19:03 | Emergency (ER) | payer OTHER ==
[2018-02-02 19:03] VITALS: BMI 26.6
[2018-02-02 19:16] VITALS: BP 138/88; PULSE 112; RESP 15; TEMP 208.2; O2SAT 99
== END 2018-02-02 20:05 | disposition left against medical advice (07) ==
LOC: ED 19:03
DX: Z02.89 Encounter for other administrative examinations (principal); F41.9 Anxiety disorder, unspecified

== ENCOUNTER 2018-02-02 22:05 | Emergency (ER) | payer OTHER ==
[2018-02-02 22:07] VITALS: BMI 26.6
[2018-02-02 23:02] VITALS: RESP 18
--- NOTE | 2018-02-02 23:12 | ED PDOC ---
Arrival/HPI - General Chief Complaint: Alcohol Ingestion Time Seen by Provider: 02/02/18 23:05 - History of Present Illness Narrative History of Present Illness (Text): 02/02/18 23:12 Chidi Hopper is a 27 year old male, whose past medical history polysubstance abuse and alcohol abuse, who presents to the emergency department complaining of alcohol abuse and depression. Patient states he has not had any alcohol for the past 4 days and drank a lot of alcohol tonight. Patient also admits to doing MDMA 2 days prior. Patient states he "has no desire to live" and reports some chest pressure tonight. Patient presented to the ER earlier today but left prior to being seen. Patient denies any homicidal ideation, fever, chills, shortness of breath, abdominal pain, nausea, vomiting, diarrhea, urinary symptoms, back pain, neck pain, headache, dizziness, or any other complaints. Symptom Onset: Gradual Symptom Course: Unchanged Activities at Onset: Light Context: Home Past Medical History - Provider Review Nursing Documentation Reviewed: Yes - Past History Past History: No Previous (alcohol dependent) - Infectious Disease Hx of Infectious Diseases: None - Tetanus Immunization Tetanus Immunization: Unknown - Past Medical History Past Medical History: No Previous - Cardiac Hx Cardiac Disorders: No - Pulmonary Hx Respiratory Disorders: No - Neurological Hx Neurological Disorder: No - HEENT Hx HEENT Disorder: No - Renal Hx Renal Disorder: No - Endocrine/Metabolic Hx Endocrine Disorders: No - Hematological/Oncological Hx Blood Disorders: No - Integumentary Hx Dermatological Disorder: No - Musculoskeletal/Rheumatological Hx Musculoskeletal Disorders: Yes Hx Fractures: Yes - Gastrointestinal Hx Gastrointestinal Disorders: No - Genitourinary/Gynecological Hx Genitourinary Disorders: No - Psychiatric Hx Psychophysiologic Disorder: Yes Hx Anxiety: Yes Hx Depression: Yes Hx Panic Disorder: Yes Hx Substance Use: Yes - Past Surgical History Past Surgical History: No Previous - Surgical History Hx Appendectomy: Yes Hx Musculoskeletal Surgery: Yes Hx Orthopedic Surgery: Yes - Anesthesia Hx Anesthesia: Yes Hx Anesthesia Reactions: No Hx Malignant Hyperthermia: No - Suicidal Assessment Feels Threatened In Home Enviroment: No Family/Social History - Physician Review Nursing Documentation Reviewed: Yes Family/Social History: Unknown Family HX Smoking Status: Heavy Smoker > 10 Cigarettes Daily Hx Alcohol Use: Yes Frequency of alcohol use: Daily Hx Substance Use: Yes Hx Substance Use Treatment: No Allergies/Home Meds Allergies/Adverse Reactions: Allergies No Known Allergies Allergy (Verified 02/03/18 09:02) Home Medications: Home Meds Medication Instructions Recorded Confirmed QUEtiapine [SEROquel] 50 mg PO BID 02/03/18 02/03/18 Review of Systems - Physician Review All systems were reviewed & negative as marked: Yes - Review of Systems Constitutional: Normal. absent: Fevers Eyes: Normal ENT: Normal Respiratory: Normal. absent: SOB, Cough Cardiovascular: Chest Pain (+chest pressure) Gastrointestinal: Normal. absent: Abdominal Pain, Nausea, Vomiting Genitourinary Male: Normal. absent: Dysuria, Frequency, Hematuria, Urinary Output Changes Musculoskeletal: Normal. absent: Back Pain, Neck Pain Skin: Normal. absent: Rash Neurological: Normal. absent: Headache, Dizziness Endocrine: Normal Hemo/Lymphatic: Normal Psychiatric: Depression, Other (+alcohol abuse) Physical Exam Vital Signs Reviewed: Yes Vital Signs Temp Pulse Resp BP Pulse Ox 02/03/18 07:46 97.7 F 99 H 18 133/85 98 02/03/18 05:36 98.0 F 87 18 110/65 96 02/02/18 23:01 97.8 F 99 H 18 128/91 H 99 Temperature: Afebrile Blood Pressure: Normal Pulse: Regular Respiratory Rate: Normal Appearance: Positive for: Well-Appearing, Non-Toxic, Comfortable Pain Distress: None Mental Status: Positive for: Alert and Oriented X 3 - Systems Exam Head: Present: Atraumatic, Normocephalic Pupils: Present: PERRL Extroacular Muscles: Present: EOMI Conjunctiva: Present: Normal Mouth: Present: Moist Mucous Membranes Neck: Present: Normal Range of Motion Respiratory/Chest: Present: Clear to Auscultation, Good Air Exchange. No: Respiratory Distress, Accessory Muscle Use Cardiovascular: Present: Regular Rate and Rhythm, Normal S1, S2. No: Murmurs Abdomen: Present: Normal Bowel Sounds. No: Tenderness, Distention, Peritoneal Signs Back: Present: Normal Inspection Upper Extremity: Present: Normal Inspection. No: Cyanosis, Edema Lower Extremity: Present: Normal Inspection. No: Edema Neurological: Present: GCS=15, CN II-XII Intact, Speech Normal Skin: Present: Warm, Dry, Normal Color. No: Rashes Psychiatric: Present: Alert, Oriented x 3, Normal Insight, Normal Concentration Medical Decision Making ED Course and Treatment: 02/02/18 23:12 Impression: 27 year old male complaining of alcohol intoxication, depression, and chest pressure. Plan: -- EKG -- Labs, alcohol level -- Urinalysis, urine drug screen -- Ativan -- Reassess and dispositio Progress Notes: Reviewed EKG, NSR at [address] bpm[address] Non-specific ST/T wave changes. Pt medically cleared for PES evaluation. 02/03/18 05:38 Pt seen and evaluated by PES screener Elsa, who discussed case with psychiatrist personnel security specialist. Pt will be transferred to [facility] Inpatient Psych/ Detox Unit. Pt agreeable with plan. - Lab Interpretations Lab Results: 02/02/18 22:40 02/02/18 22:40 Lab Results 02/02/18 22:40: Alcohol, Quantitative 295 H 02/02/18 22:40: Salicylates < 1 L, Acetaminophen < 10.0 L 02/02/18 22:40: Urine Opiates Screen Negative, Urine Methadone Screen Negative, Ur Barbiturates Screen Negative, Ur Phencyclidine Scrn Negative, Ur Amphetamines Screen Negative, U Benzodiazepines Scrn Negative, U Oth Cocaine Metabols Negative, U Cannabinoids Screen Negative 02/02/18 22:40: Sodium 145, Potassium 3.8, Chloride 109 H, Carbon Dioxide 19 L, Anion Gap 21 H, BUN 18, Creatinine 0.9, Est GFR ( Amer) > 60, Est GFR ( Non-Af Amer) > 60, Random Glucose 104, Calcium 9.5, Total Bilirubin 0.2, AST 43 , ALT 84 H, Alkaline Phosphatase 78, Total Protein 7.9, Albumin 4.6, Globulin 3.3, Albumin/Globulin Ratio 1.4 02/02/18 22:40: Urine Color Straw, Urine Appearance Clear, Urine pH 6.5, Ur Specific [place] <= 1.005, Urine Protein Negative, Urine Glucose (UA) Negative, Urine Ketones Negative, Urine Blood Negative, Urine Nitrate Negative, Urine Bilirubin Negative, Urine Urobilinogen 0.2, Ur Leukocyte Esterase Negative 02/02/18 22:40: WBC 11.1 H, RBC 4.72, Hgb 16.0, Hct 44.9, MCV 95.1, MCH 33.9, MCHC 35.6, RDW 12.7, Plt Count 264, MPV 10.0, Gran % 49.1 L, Lymph % (Auto) 38.5 H, [place] % (Auto) 6.1 H, Eos % (Auto) 5.6 H, Baso % (Auto) 0.7, Gran # 5.42 , Lymph # (Auto) 4.3 H, [place] # (Auto) 0.7 H, Eos # (Auto) 0.6, Baso # (Auto) 0.08 I have reviewed the lab results: Yes - EKG Interpretation Interpreted by ED Physician: Yes Type: 12 lead EKG - Medication Orders Current Medication Orders: Discontinued Medications Chlordiazepoxide (Librium) 25 mg PO STAT STA PRN Reason: Protocol Stop: 02/03/18 06:11 Last Admin: 02/03/18 06:17 Dose: 25 mg Lorazepam (Ativan) 1 mg IM ONCE ONE PRN Reason: Protocol Stop: 02/02/18 23:21 Last Admin: 02/02/18 23:27 Dose: 1 mg IM Administration Charges Document 02/02/18 23:27 SS (Rec: 02/02/18 23:27 SS [id number]) Injection Site MAR Injection Site Right Deltoid Charges for Administration # of IM Administrations 1 Ziprasidone (Geodon Inj) 10 mg IM STAT STA PRN Reason: Protocol Stop: 02/03/18 00:17 Last Admin: 02/03/18 00:32 Dose: 10 mg IM Administration Charges Document 02/03/18 00:32 SS (Rec: 02/03/18 00:33 SS [id number]) Injection Site MAR Injection Site Left Deltoid Charges for Administration # of IM Administrations 1 - Scribe Statement The provider has reviewed the documentation as recorded by the Stanley Martins Provider Scribe Attestation: All medical record entries made by the Scribe were at my direction and personally dictated by me. I have reviewed the chart and agree that the record accurately reflects my personal performance of the history, physical exam, medical decision making, and the department course for this patient. I have also personally directed, reviewed, and agree with the discharge instructions and disposition. Disposition/Present on Arrival - Present on Arrival Any Indicators Present on Arrival: No History of DVT/PE: No History of Uncontrolled Diabetes: No Urinary Catheter: No History of Decub. Ulcer: No History Surgical Site Infection Following: None - Disposition Have Diagnosis and Disposition been Completed?: Yes Diagnosis: Alcohol abuse, Desire for detoxification Disposition: Transfer [facility] Disposition Time: 06:00 Condition: GOOD Referrals: PCP,NO [Primary Care Provider] - Follow up with primary Forms: [employer] ([place]ian)
[2018-02-02 23:36] LABS: PH,URINE 6.5 (4.7-8.0); URINE BILIRUBIN NEGATIVE (NEGATIVE); URINE BLOOD NEGATIVE (NEGATIVE); URINE GLUCOSE (UA) NEGATIVE (NEGATIVE); URINE LEUKOCYTE ESTERASE NEGATIVE Leu/uL (NEGATIVE); URINE PROTEIN NEGATIVE mg/dL (<30 mg/dL); URINE UROBILINOGEN 0.2 E.U./dL (<1 E.U./dL)
[2018-02-02 23:37] LABS: BASO # 0.08 K/mm3 (0.0-2.0); BASO % 0.7 % (0.0-3.0); EOS # 0.6 (0.0-0.7); EOS % 5.6 % (1.5-5.0); GRAN # 5.42 (1.4-6.5); GRAN % 49.1 % (50.0-68.0); LYMPH # 4.3 (1.2-3.4); LYMPH % 38.5 % (22.0-35.0); MEAN CELL VOLUME 95.1 fl (80.0-105.0); MEAN CORPUSCULAR HEMOGLOBIN 33.9 pg (25.0-35.0); MEAN CORPUSCULAR HGB CONC 35.6 g/dl (31.0-37.0); MONO # 0.7 (0.1-0.6); MONO % 6.1 % (1.0-6.0); RBC 4.72 10^6/uL (3.5-6.1); RED CELL DISTRIBUTION WIDTH 12.7 % (11.5-14.5); WHITE BLOOD COUNT 11.1 10^3/ul (4.5-11.0)
[2018-02-02 23:41] LABS: ACETAMINOPHEN < 10.0 ug/ml (10.0-20.0); SALICYLATE < 1 mg/dL (2.0-20.0)
[2018-02-02 23:45] LABS: URINE APPEARANCE CLEAR (CLEAR); URINE COLOR STRAW (YELLOW)
[2018-02-03 00:07] LABS: ALB/GLOB RATIO 1.4 (1.1-1.8); ALBUMIN 4.6 g/dL (3.0-4.8); ALT/SGPT 84 U/L (7-56); AST/SGOT 43 U/L (17-59); BARBITURATES, UR NEGATIVE (NEGATIVE); BENZODIAZEPINES, UR NEGATIVE (NEGATIVE); BLOOD UREA NITROGEN 18 mg/dL (7-21); CALCIUM 9.5 mg/dL (8.4-10.5); GFR AFRICAN-AMERICAN > 60; GFR NON-AFRICAN AMERICAN > 60; OPIATES, UR NEGATIVE (NEGATIVE); PHENCYCLIDINE, UR NEGATIVE (NEGATIVE)
[2018-02-03 07:47] VITALS: BP 133/85; PULSE 99; TEMP 97.7; O2SAT 98
--- NOTE | 2018-02-03 19:37 | CARD ---
APPROVED REPORT EKG Measurement Heart [id number] <Conclusion> Normal sinus rhythm Incomplete right bundle branch block Borderline ECG
== END 2018-02-03 07:54 | disposition short-term general hospital (02) ==
LOC: ED 22:05
DX: F10.10 Alcohol abuse, uncomplicated (principal); Y90.8 Blood alcohol level of 240 mg/100 ml or more; F32.9 Major depressive disorder, single episode, unspecified
CPT/HCPCS: 80053; 80320; 80324; 80329; 80345; 80346; 80349; 80353; 80358; 80361; 81003; 83992; 85025; 90791; 93005; 96372; 99284; J2060; J3486

== ENCOUNTER 2018-02-03 22:49 | Inpatient (IN) | payer MEDICAID, OTHER ==
[2018-02-03 22:55] VITALS: BMI 26.6
--- NOTE | 2018-02-03 23:19 | ED PDOC ---
Arrival/HPI - General Time Seen by Provider: 02/03/18 23:06 Historian: Patient - History of Present Illness Narrative History of Present Illness (Text): 02/03/18 23:18 A 27 year old male presents to the emergency department for evaluation of alcohol intoxication. Patient reports he drank alcohol. Patient was admitted to detox last night. Patient signed himself out. Patient is anxious in the emergency department but denies any other complaints at this time. Symptom Onset: Sudden Symptom Course: Unchanged Activities at Onset: Rest Context: Home Past Medical History - Provider Review Nursing Documentation Reviewed: Yes - Past History Past History: No Previous (alcohol dependent) - Infectious Disease Hx of Infectious Diseases: None - Tetanus Immunization Tetanus Immunization: Unknown - Past Medical History Past Medical History: No Previous - Cardiac Hx Cardiac Disorders: No - Pulmonary Hx Respiratory Disorders: No - Neurological Hx Neurological Disorder: No - HEENT Hx HEENT Disorder: No - Renal Hx Renal Disorder: No - Endocrine/Metabolic Hx Endocrine Disorders: No - Hematological/Oncological Hx Blood Disorders: No - Integumentary Hx Dermatological Disorder: No - Musculoskeletal/Rheumatological Hx Musculoskeletal Disorders: Yes Hx Fractures: Yes - Gastrointestinal Hx Gastrointestinal Disorders: No - Genitourinary/Gynecological Hx Genitourinary Disorders: No - Psychiatric Hx Psychophysiologic Disorder: Yes Hx Anxiety: Yes Hx Depression: Yes Hx Panic Disorder: Yes Hx Substance Use: Yes - Past Surgical History Past Surgical History: No Previous - Surgical History Hx Appendectomy: Yes Hx Musculoskeletal Surgery: Yes Hx Orthopedic Surgery: Yes - Anesthesia Hx Anesthesia: Yes Hx Anesthesia Reactions: No Hx Malignant Hyperthermia: No - Suicidal Assessment Feels Threatened In Home Enviroment: No Family/Social History - Physician Review Nursing Documentation Reviewed: Yes Family/Social History: No Known Family HX Smoking Status: Heavy Smoker > 10 Cigarettes Daily Hx Alcohol Use: Yes Hx Substance Use: Yes Hx Substance Use Treatment: No Allergies/Home Meds Allergies/Adverse Reactions: Allergies No Known Allergies Allergy (Verified 02/04/18 09:17) Home Medications: Home Meds Medication Instructions Recorded Confirmed QUEtiapine [SEROquel] 50 mg PO BID 02/03/18 02/06/18 Review of Systems - Physician Review All systems were reviewed & negative as marked: Yes - Review of Systems Systems not reviewed;Unavailable: Intoxicated Psychiatric: Anxiety Physical Exam Vital Signs Reviewed: Yes Vital Signs Temp Pulse Resp BP Pulse Ox 02/04/18 08:00 98 F 98 H 18 131/73 99 02/04/18 05:17 88 16 138/76 99 02/04/18 02:55 100 H 18 132/70 98 02/04/18 00:55 98 H 20 146/96 H 100 02/03/18 22:55 98.3 F 102 H 18 153/90 H 97 Temperature: Afebrile Blood Pressure: Hypertensive Pulse: Tachycardic Respiratory Rate: Normal Appearance: Positive for: Well-Appearing, Comfortable Pain Distress: None Mental Status: Positive for: Alert and Oriented X 3 - Systems Exam Head: Present: Atraumatic, Normocephalic Pupils: Present: PERRL Extroacular Muscles: Present: EOMI Conjunctiva: Present: Normal Mouth: Present: Moist Mucous Membranes Neck: Present: Normal Range of Motion Respiratory/Chest: Present: Clear to Auscultation, Good Air Exchange. No: Respiratory Distress, Accessory Muscle Use Cardiovascular: Present: Regular Rate and Rhythm, Normal S1, S2. No: Murmurs Abdomen: Present: Normal Bowel Sounds. No: Tenderness, Distention, Peritoneal Signs Back: Present: Normal Inspection Upper Extremity: Present: Normal Inspection. No: Cyanosis, Edema Lower Extremity: Present: Normal Inspection. No: Edema Neurological: Present: GCS=15, CN II-XII Intact, Speech Normal Skin: Present: Warm, Dry, Normal Color. No: Rashes Psychiatric: Present: Alert, Oriented x 3, Anxious, Intoxicated Medical Decision Making ED Course and Treatment: 02/03/18 23:16 Impression: A 27 year old male with anxiety and alcohol intoxication. Plan: -- labs -- Urinalysis -- Librium -- Reassess and disposition Prior Visits: Notes and results from previous visits were reviewed. Patient was last seen in the emergency department on 02/03/18 for evaluation of alcohol intoxication and anxiety. Progress Notes: - Lab Interpretations Lab Results: 02/03/18 23:20 02/03/18 23:20 Lab Results 02/04/18 00:15: Urine Opiates Screen Negative, Urine Methadone Screen Negative, Ur Barbiturates Screen Negative, Ur Phencyclidine Scrn Negative, Ur Amphetamines Screen Negative, U Benzodiazepines Scrn Negative, U Oth Cocaine Metabols Negative, U Cannabinoids Screen Negative 02/04/18 00:15: Urine Color Yellow, Urine Appearance Clear, Urine pH 6.5, Ur Specific [place] <= 1.005, Urine Protein Negative, Urine Glucose (UA) Negative, Urine Ketones Negative, Urine Blood Negative, Urine Nitrate Negative, Urine Bilirubin Negative, Urine Urobilinogen 0.2, Ur Leukocyte Esterase Negative 02/03/18 23:20: Alcohol, Quantitative 296 H 02/03/18 23:20: Salicylates < 1 L, Acetaminophen < 10.0 L 02/03/18 23:20: Sodium 147, Potassium 4.1, Chloride 111 H, Carbon Dioxide 18 L, Anion Gap 22 H, BUN 14, Creatinine 0.9, Est GFR ( Amer) > 60, Est GFR ( Non-Af Amer) > 60, Random Glucose 120 H, Calcium 9.5, Total Bilirubin 0.6, AST 53, ALT 72 H, Alkaline Phosphatase 90, Total Protein 7.9, Albumin 4.7, Globulin 3.2, Albumin/Globulin Ratio 1.4 02/03/18 23:20: WBC 10.9, RBC 4.69, Hgb 15.6, Hct 44.4, MCV 94.7, MCH 33.3, MCHC 35.1, RDW 12.7, Plt Count 272, MPV 10.3, Gran % 54.9, Lymph % (Auto) 35.5 H , [place] % (Auto) 5.5, Eos % (Auto) 3.6, Baso % (Auto) 0.5, Gran # 6.00, Lymph # ( Auto) 3.9 H, [place] # (Auto) 0.6, Eos # (Auto) 0.4, Baso # (Auto) 0.05 I have reviewed the lab results: Yes - Medication Orders Current Medication Orders: Acetaminophen (Tylenol 325mg Tab) 650 mg PO Q6H PRN PRN Reason: Pain, moderate (4-7) Last Admin: 02/09/18 06:15 Dose: 650 mg [facility] Pain/Vitals Document 02/09/18 06:15 WP (Rec: 02/09/18 06:17 WP [id number]) Pain Reassessment Is This A Pain ReAssessment? No Presence of Pain Presence of Pain Yes Pain Scale Used Pain Scale Used Numeric Location Left, Right or Bilateral Right Pain Location Body Site toothache Intensity 5 Re-Assess: MAR Pain/Vitals Document 02/09/18 07:15 WP (Rec: 02/09/18 07:19 WP [id number]) Pain Reassessment Is This A Pain ReAssessment? Yes Presence of Pain Presence of Pain No Al Hydrox/Mg Hydrox/Simethicone (Maalox Plus 30 Ml) 30 ml PO DAILY PRN PRN Reason: Indigestion / Heartburn Last Admin: 02/04/18 13:00 Dose: 30 ml Bupropion HCl (Wellbutrin) 100 mg PO DAILY [facility] Last Admin: 02/09/18 09:14 Dose: 100 mg Chlordiazepoxide (Librium) 25 mg PO Q8 PRN; Protocol PRN Reason: withdrawals Chlordiazepoxide (Librium) 20 mg PO TID [facility] PRN Reason: Protocol Last Admin: 02/09/18 09:13 Dose: 20 mg Behavioural Document 02/09/18 09:13 RGO (Rec: 02/09/18 09:14 RGO [id number]) Maintenance Maintenance Dose Yes Folic Acid (Folic Acid) 1 mg PO DAILY [facility] Last Admin: 02/09/18 09:14 Dose: 1 mg Hydroxyzine Pamoate (Vistaril) 50 mg PO Q8 PRN; Protocol PRN Reason: Anxiety Last Admin: 02/09/18 09:18 Dose: 50 mg Behavioural Document 02/09/18 09:18 RGO (Rec: 02/09/18 09:18 RGO [id number]) Maintenance Maintenance Dose No Nonmedicinal Nonmedicinal Interventions Therapeutic Communication Behavior Behavior for Medication: Anxiety Magnesium Hydroxide (Milk Of Magnesia) 30 ml PO DAILY PRN PRN Reason: Constipation Mirtazapine (Remeron) 15 mg PO HS [facility] Last Admin: 02/08/18 21:15 Dose: 15 mg Multivitamins (Thera Tab) 1 tab PO 0800 [facility] Last Admin: 02/09/18 09:14 Dose: 1 tab Naltrexone HCl (Revia) 50 mg PO DAILY [facility] Last Admin: 02/09/18 09:14 Dose: 50 mg Nicotine (Nicoderm Cq) 1 patch TD DAILY [facility] Last Admin: 02/09/18 09:14 Dose: 1 patch MAR Transdermal Patch Site Document 02/09/18 09:14 RGO (Rec: 02/09/18 09:14 RGO [id number]) Transdermal Patch Site Transdermal Patch Site Left Lower Abdomen Thiamine HCl (Vitamin B1 Tab) 100 mg PO DAILY [facility] Last Admin: 02/09/18 09:14 Dose: 100 mg Discontinued Medications Chlordiazepoxide (Librium) 25 mg PO STAT STA PRN Reason: Protocol Stop: 02/03/18 23:29 Last Admin: 02/03/18 23:41 Dose: 25 mg Chlordiazepoxide (Librium) 25 mg PO STAT STA PRN Reason: Protocol Stop: 02/04/18 02:58 Last Admin: 02/04/18 03:15 Dose: 25 mg Chlordiazepoxide (Librium) 50 mg PO Q8 [facility] PRN Reason: Protocol Last Admin: 02/06/18 06:26 Dose: 50 mg Behavioural Document 02/06/18 06:26 WP (Rec: 02/06/18 06:26 WP [id number]) Maintenance Maintenance Dose Yes Chlordiazepoxide (Librium) 50 mg PO STAT STA PRN Reason: Protocol Stop: 02/04/18 10:44 Last Admin: 02/04/18 11:01 Dose: 50 mg Behavioural Document 02/04/18 11:01 AJ (Rec: 02/04/18 11:01 AJ [id number]) Maintenance Maintenance Dose No Nonmedicinal Nonmedicinal Interventions Redirect Therapeutic Communication Activity Give food/fluids Behavior Behavior for Medication: Anxiety Continuous pacing/restlessness Re-Assess: Reassess Psych Meds Document 02/04/18 12:01 CV (Rec: 02/05/18 09:37 CV [id number]) Reassess Psych Med Effective Chlordiazepoxide (Librium) 25 mg PO QID [facility] PRN Reason: Protocol Last Admin: 02/07/18 08:17 Dose: 25 mg Chlordiazepoxide (Librium) 25 mg PO TID [facility] PRN Reason: Protocol Last Admin: 02/07/18 17:20 Dose: 25 mg Re-Assess: Reassess Psych Meds Document 02/07/18 19:40 DCP (Rec: 02/07/18 23:27 DCP [id number]) Reassess Psych Med Effective Chlordiazepoxide (Librium) 20 mg PO TID [place] PRN Reason: Protocol Lorazepam (Ativan) 2 mg IM ONCE ONE PRN Reason: Protocol Stop: 02/04/18 01:49 Last Admin: 02/04/18 01:48 Dose: 2 mg IM Administration Charges Document 02/04/18 01:48 CNR (Rec: 02/04/18 02:02 CNR [id number]) Injection Site MAR Injection Site Left Deltoid Charges for Administration # of IM Administrations 1 - Scribe Statement The provider has reviewed the documentation as recorded by the Stanley Garcia Provider Scribe Attestation: All medical record entries made by the Scribe were at my direction and personally dictated by me. I have reviewed the chart and agree that the record accurately reflects my personal performance of the history, physical exam, medical decision making, and the department course for this patient. I have also personally directed, reviewed, and agree with the discharge instructions and disposition. Disposition/Present on Arrival - Present on Arrival Any Indicators Present on Arrival: No History of DVT/PE: No History of Uncontrolled Diabetes: No Urinary Catheter: No History Surgical Site Infection Following: None - Disposition Have Diagnosis and Disposition been Completed?: Yes Diagnosis: Alcohol abuse, Depressive disorder, Anxiety Disposition: HOSPITALIZED Disposition Time: 06:30 Patient Problems: Current Active Problems Problem Status Onset Alcohol use disorder Acute MDD (major depressive disorder) Acute Substance induced mood disorder Acute Condition: GOOD
[2018-02-04] LABS: ACETAMINOPHEN < 10.0 ug/ml (10.0-20.0); SALICYLATE < 1 mg/dL (2.0-20.0)
[2018-02-04 00:03] LABS: ALBUMIN 4.7 g/dL (3.0-4.8); BASO # 0.05 K/mm3 (0.0-2.0); BASO % 0.5 % (0.0-3.0); BLOOD UREA NITROGEN 14 mg/dL (7-21); CALCIUM 9.5 mg/dL (8.4-10.5); EOS # 0.4 (0.0-0.7); EOS % 3.6 % (1.5-5.0); GFR AFRICAN-AMERICAN > 60; GFR NON-AFRICAN AMERICAN > 60; GRAN % 54.9 % (50.0-68.0); HEMOGLOBIN 15.6 g/dL (14.0-18.0); LYMPH # 3.9 (1.2-3.4); LYMPH % 35.5 % (22.0-35.0); MEAN CELL VOLUME 94.7 fl (80.0-105.0); MEAN CORPUSCULAR HEMOGLOBIN 33.3 pg (25.0-35.0); MEAN CORPUSCULAR HGB CONC 35.1 g/dl (31.0-37.0); MEAN PLATELET VOLUME 10.3 fl (7.0-11.0); MONO # 0.6 (0.1-0.6); MONO % 5.5 % (1.0-6.0); RBC 4.69 10^6/uL (3.5-6.1); RED CELL DISTRIBUTION WIDTH 12.7 % (11.5-14.5); WHITE BLOOD COUNT 10.9 10^3/ul (4.5-11.0)
[2018-02-04 00:04] LABS: ALB/GLOB RATIO 1.4 (1.1-1.8); ALT/SGPT 72 U/L (7-56); AST/SGOT 53 U/L (17-59)
[2018-02-04 01:08] LABS: PH,URINE 6.5 (4.7-8.0); URINE BILIRUBIN NEGATIVE (NEGATIVE); URINE BLOOD NEGATIVE (NEGATIVE); URINE GLUCOSE (UA) NEGATIVE (NEGATIVE); URINE LEUKOCYTE ESTERASE NEGATIVE Leu/uL (NEGATIVE); URINE PROTEIN NEGATIVE mg/dL (<30 mg/dL); URINE UROBILINOGEN 0.2 E.U./dL (<1 E.U./dL)
[2018-02-04 01:12] LABS: URINE APPEARANCE CLEAR (CLEAR); URINE COLOR YELLOW (YELLOW)
[2018-02-04 01:28] LABS: BENZODIAZEPINES, UR NEGATIVE (NEGATIVE)
[2018-02-04 01:49] LABS: BARBITURATES, UR NEGATIVE (NEGATIVE); OPIATES, UR NEGATIVE (NEGATIVE); PHENCYCLIDINE, UR NEGATIVE (NEGATIVE)
--- NOTE | 2018-02-04 11:06 | PCM.BM ---
Treatment Plan Problems - Problems identified on initial assessmt depression Date Initiated: 02/04/18 Time Initiated: 09:00 Assessment reference: AT, NA Status: Active Priority: 1 Problem 2 Date Initiated: 02/04/18 Time Initiated: : Date resolved: 02/04/18 Assessment reference: NA Status: Active alcohol abuse Date Initiated: 02/04/18 Time Initiated: 09:00 Assessment reference: NA Status: Active Treatment assets and liabiliti Patient Assests: adapts well, cooperative, educated, insightful, motivated, ADL independent, negotiates basic needs Patient Liabilities: substance abuse - Milieu Protocol Maintain good personal hygiene: daily Encourage regular showers, daily Remind patient to perform daily oral care, daily Assist patient to perform ADL's Conduct patient checks and document Observation sheet: Q15 minutes Maintain personal safety: every shift Educate patient to report safety concerns to staff, every shift Monitor environment for contraband/sharps Medication safety: Monitor for expected outcome, potential side effects: every shift, Assess barriers to learning: every shift, Assess readiness for medication education: every shift Discharge/Continuing Care - Education Needs Education Needs: Patient Medication, Patient Diagnosis/Disease Process, Patient Coping Skills, Patient Community resources, Patient Activities of Daily Living, Patient Nutrition, Patient Health Practices/Safety, Patient Personal Hygiene/ Grooming - Discharge Discharge Criteria: Free of Suicidal thoughts, Normal sleep pattern, No longer exhibiting s/s of withdrawal
[2018-02-04 11:57] VITALS: O2SAT 99
[2018-02-04] MEDS ORDERED: Alum-Mag Hydrox-Simethicone Susp (30 mL) PO PRN (12:21)
[2018-02-04] MEDS ORDERED: Magnesium Hydroxide Susp 30 ml UD PO PRN (12:22)
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
--- NOTE | 2018-02-04 18:25 | PCM.BM ---
Treatment Plan Problems - Problems identified on initial assessmt Problem 2 Date Initiated: 02/04/18 Time Initiated: 09:00 Date resolved: 02/04/18 Assessment reference: NA Status: Active depression Date Initiated: 02/04/18 Time Initiated: 09:00 Assessment reference: AT, NA Status: Active Priority: 1 alcohol abuse Date Initiated: 02/04/18 Time Initiated: 09:00 Assessment reference: NA Status: Active Treatment assets and liabiliti Patient Assests: adapts well, cooperative, educated, insightful, motivated, ADL independent, negotiates basic needs Patient Liabilities: substance abuse - Milieu Protocol Maintain good personal hygiene: daily Encourage regular showers, daily Remind patient to perform daily oral care, daily Assist patient to perform ADL's Conduct patient checks and document Observation sheet: Q15 minutes Maintain personal safety: every shift Educate patient to report safety concerns to staff, every shift Monitor environment for contraband/sharps Medication safety: Monitor for expected outcome, potential side effects: every shift, Assess barriers to learning: every shift, Assess readiness for medication education: every shift Milieu Narrative: Milieu/structure/supportive therapy SW consultation for discharge plan and social issues Med management Remeron 50 mg at the nighttime for depression and insomnia and Librium 50 mg 3 times a day scheduled as well as when necessary for alcohol withdrawal symptoms Multivitamins, thiamine, folic acid Wellbutrin 100 mg by mouth daily for depression and ADHD Naltrexone was discussed with the patient We'll monitor her vital signs closely Family involvement Follow up on labs Will monitor closely Pt was educated about risk/benefits and alternatives of medications, coping strategies (safety plan, suicide prevention), relapse prevention, importance of follow up with psychiatrist and therapist, stay away from drugs/alcohol/smoking Family Contact Family involvement: Famliy/SO not involved - Goals for Treatment Patient goals for treatment: "To stop drinking." Discharge/Continuing Care - Education Needs Education Needs: Patient Medication, Patient Diagnosis/Disease Process, Patient Coping Skills, Patient Community resources, Patient Activities of Daily Living, Patient Nutrition, Patient Health Practices/Safety, Patient Personal Hygiene/ Grooming - Discharge Discharge Criteria: Free of Suicidal thoughts, Normal sleep pattern, No longer exhibiting s/s of withdrawal - Treatment Team Participation Patient/Family/SO Statement: Milieu/structure/supportive therapy SW consultation for discharge plan and social issues Med management Remeron 50 mg at the nighttime for depression and insomnia and Librium 50 mg 3 times a day scheduled as well as when necessary for alcohol withdrawal symptoms Multivitamins, thiamine, folic acid Wellbutrin 100 mg by mouth daily for depression and ADHD Naltrexone was discussed with the patient We'll monitor her vital signs closely Family involvement Follow up on labs Will monitor closely Pt was educated about risk/benefits and alternatives of medications, coping strategies (safety plan, suicide prevention), relapse prevention, importance of follow up with psychiatrist and therapist, stay away from drugs/alcohol/smoking
--- NOTE | 2018-02-04 18:33 | CARD ---
APPROVED REPORT EKG Measurement Heart [id number] <Conclusion> Sinus tachycardia Artifacts Borderline ECG
[2018-02-05 08:10] LABS: GLUCOSE,FASTING 95 mg/dL (65-110); HDL CHOLESTEROL 45 mg/dL (29-60)
[2018-02-05] MEDS: Multivitamin Therapeutic Tab PO SCH (08:11)
[2018-02-05 08:22] LABS: FREE T4 0.55 ng/dL (0.78-2.19); LDL CHOLESTEROL 58 mg/dL (0-129)
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
[2018-02-06 07:14] VITALS: RESP 20
[2018-02-06] MEDS: Multivitamin Therapeutic Tab PO SCH (08:38)
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
[2018-02-07] MEDS: Multivitamin Therapeutic Tab PO SCH (08:17)
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
[2018-02-08] MEDS: Multivitamin Therapeutic Tab PO SCH (08:57)
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
[2018-02-09 07:19] VITALS: BP 118/78; PULSE 71; TEMP 97.4
[2018-02-09] MEDS: Multivitamin Therapeutic Tab PO SCH (09:14)
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
== END 2018-02-09 16:00 | disposition home or self-care (01) | DRG 426 ==
LOC: ED 22:49 → ERH 02-04 06:28 → PSYC 02-04 08:49
PROVIDERS: ADMIT Psychiatry & Neurology Psychiatry; ATTEND Psychiatry & Neurology Psychiatry
DX: F32.9 Major depressive disorder, single episode, unspecified (principal); F10.239 Alcohol dependence with withdrawal, unspecified; F19.94 Other psychoactive substance use, unspecified with psychoactive substance-induced mood disorder; F17.210 Nicotine dependence, cigarettes, uncomplicated; F41.0 Panic disorder [episodic paroxysmal anxiety]; F90.9 Attention-deficit hyperactivity disorder, unspecified type; G47.00 Insomnia, unspecified; R45.851 Suicidal ideations; Z79.899 Other long term (current) drug therapy; Z90.49 Acquired absence of other specified parts of digestive tract

== ENCOUNTER 2018-02-20 23:00 | Observation (INO) | payer OTHER, MEDICAID ==
[2018-02-20 23:00] VITALS: BMI 26.6
--- NOTE | 2018-02-20 23:39 | ED PDOC ---
Arrival/HPI - General Chief Complaint: Alcohol Ingestion Time Seen by Provider: 02/20/18 23:23 Historian: Patient, Parent - History of Present Illness Narrative History of Present Illness (Text): you were treated in the ED today for hx of anxiety, admitted cocaine use yesterday and now having anxiety and chest pain but otherwise without any nausea /vomiting/headache/dizziness/difficulty breathing/chest pain/abdomen pain/ numbness/tingling/loss of limb function/pain with urination/thoughts to harm yourself or others or hallucinations. 02/20/18 23:39 Time/Duration: 4-6 hours Symptom Onset: Gradual Symptom Course: Unchanged Quality: Aching Severity Level: 1 Activities at Onset: Rest Context: Sitting Past Medical History - Provider Review Nursing Documentation Reviewed: Yes - Travel History Have you recently traveled outside [place] w/in the past 3 mons?: No - Past History Past History: No Previous (alcohol dependent) - Infectious Disease Hx of Infectious Diseases: None - Tetanus Immunization Tetanus Immunization: Unknown - Past Medical History Past Medical History: No Previous - Cardiac Hx Cardiac Disorders: No - Pulmonary Hx Respiratory Disorders: No - Neurological Hx Neurological Disorder: No - HEENT Hx HEENT Disorder: No - Renal Hx Renal Disorder: No - Endocrine/Metabolic Hx Endocrine Disorders: No - Hematological/Oncological Hx Blood Disorders: No - Integumentary Hx Dermatological Disorder: No - Musculoskeletal/Rheumatological Hx Musculoskeletal Disorders: Yes Hx Fractures: Yes - Gastrointestinal Hx Gastrointestinal Disorders: No - Genitourinary/Gynecological Hx Genitourinary Disorders: No - Psychiatric Hx Psychophysiologic Disorder: Yes Hx Anxiety: Yes Hx Depression: Yes Hx Panic Disorder: Yes Hx Substance Use: Yes - Past Surgical History Past Surgical History: No Previous - Surgical History Hx Appendectomy: Yes Hx Musculoskeletal Surgery: Yes Hx Orthopedic Surgery: Yes - Anesthesia Hx Anesthesia: Yes Hx Anesthesia Reactions: No Hx Malignant Hyperthermia: No - Suicidal Assessment Feels Threatened In Home Enviroment: No Family/Social History - Physician Review Nursing Documentation Reviewed: Yes Family/Social History: No Known Family HX Smoking Status: Heavy Smoker > 10 Cigarettes Daily Hx Alcohol Use: Yes Hx Substance Use: Yes Substance used: marijuana Hx Substance Use Treatment: No Allergies/Home Meds Allergies/Adverse Reactions: Allergies No Known Allergies Allergy (Verified 02/20/18 23:11) Home Medications: Home Meds Medication Instructions Recorded Confirmed Amoxicillin 500 mg PO TID 02/21/18 02/21/18 Ibuprofen [Ibuprofen] 800 mg PO Q6H PRN 02/21/18 02/21/18 Multivitamins [Hexavitamin] 1 tab PO DAILY 02/21/18 02/21/18 Naltrexone [Revia] 50 mg PO DAILY 02/21/18 02/21/18 Propranolol [Inderal] 10 mg PO BID 02/21/18 02/21/18 hydrOXYzine Pamoate [Vistaril] 50 mg PO BID PRN 02/21/18 02/21/18 Review of Systems - Review of Systems Constitutional: Normal Eyes: Normal ENT: Normal Respiratory: Normal Cardiovascular: Chest Pain Gastrointestinal: Normal Genitourinary Male: Normal Musculoskeletal: Normal Skin: Normal Neurological: Normal Endocrine: Normal Hemo/Lymphatic: Normal Psychiatric: Anxiety. absent: Normal, Depression, Suicidal Ideation, Other Physical Exam Vital Signs Reviewed: Yes Vital Signs Temp Pulse Resp BP Pulse Ox 02/20/18 23:00 98.2 F 75 16 142/88 96 Appearance: Positive for: Well-Appearing, Non-Toxic, Comfortable Pain Distress: None Mental Status: Positive for: Alert and Oriented X 3 - Systems Exam Head: Present: Atraumatic, Normocephalic Pupils: Present: PERRL Extroacular Muscles: Present: EOMI Conjunctiva: Present: Normal Ears: Present: Normal Mouth: Present: Moist Mucous Membranes Pharnyx: Present: Normal Nose (External): Present: Atraumatic Nose (Internal): Present: Normal Inspection Neck: Present: Normal Range of Motion Respiratory/Chest: Present: Clear to Auscultation, Good Air Exchange Cardiovascular: Present: Regular Rate and Rhythm Abdomen: No: Tenderness, Distention, Normal Bowel Sounds, Peritoneal Signs, Rebound, Guarding, McBurney's Point Tender, Rovsing's Sign Present, Hernias, Feeding Tubes, Ostomy Tubes, Mass/Organomegaly, Scars, Other Back: Present: Normal Inspection Upper Extremity: Present: Normal Inspection Lower Extremity: Present: Normal Inspection Neurological: Present: GCS=15, CN II-XII Intact, Speech Normal, Motor Func Grossly Intact Psychiatric: Present: Alert, Oriented x 3, Normal Insight, Normal Concentration , Anxious. No: Normal Affect, Normal Mood, Agitated, Depressed Mood, Suicidal Ideation, Homicidal Ideation, Delusional, Hallucinations, Intoxicated, Lethargic , Other Medical Decision Making ED Course and Treatment: you were treated in the ED today for hx of anxiety, admitted cocaine use yesterday and now having anxiety and chest pain but otherwise without any nausea /vomiting/headache/dizziness/difficulty breathing/chest pain/abdomen pain/ numbness/tingling/loss of limb function/pain with urination/thoughts to harm yourself or others or hallucinations. You were otherwise breathing easily, pink moist lips, talking easily with your mother, good strength/sensation, alert/ oriented, walking easily, clear lungs, no abdomen tenderness, no fever temp 98.2 , stable heart rate 75, stable breathing rate 16, excellent oxygen level 96% room air, elevated blood pressure 142/88 which we recommend repeat in 2-3 days primary care office to determine further treatment, you have blood tests no infection count 12.5, stable blood level hemoglobin 13/platelets 332, stable chemistry sodium 144 potassium 3.7, bicarbonate mildly low 18, chloride mildly high 109, bun 11, creatinine 1.0, glucose 98, liver AST 50/ALT mildly elevated 64, Liver Alklaline Phosphatase 65, Liver bilirubin 0.3, magnesium mildly high 2.5, heart blood test negative, alcohol 39 mildly high, tylenol negative, aspirin negative, urine drug screen positive for cocaine/cannabinoids, urine test no acute sign of infection, chest xray radiology no acute, ECG similar to prior, ativan, observation done in the ED with stability. 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 Nj Leal who will admit for chest pain rule out and d/w PES who stated once medically cleared psychiatry consult to also follow. PERC negative. Reassessment Condition: Re-examined, Improved - Lab Interpretations Lab Results: 02/21/18 00:00 02/21/18 00:00 Lab Results 02/21/18 00:02: Urine Opiates Screen Negative, Urine Methadone Screen Negative, Ur Barbiturates Screen Negative, Ur Phencyclidine Scrn Negative, Ur Amphetamines Screen Negative, U Benzodiazepines Scrn Negative, U Oth Cocaine Metabols Positive H, U Cannabinoids Screen Positive H 02/21/18 00:02: Urine Color Yellow, Urine Appearance Clear, Urine pH 8.0, Ur Specific [place] 1.015, Urine Protein Negative, Urine Glucose (UA) Negative, Urine Ketones Negative, Urine Blood Negative, Urine Nitrate Negative, Urine Bilirubin Negative, Urine Urobilinogen 0.2, Ur Leukocyte Esterase Negative 02/21/18 00:00: Alcohol, Quantitative 39 H 02/21/18 00:00: Salicylates < 1 L, Acetaminophen 11.0 02/21/18 00:00: Sodium 144, Potassium 3.7, Chloride 109 H, Carbon Dioxide 18 L, Anion Gap 20, BUN 11, Creatinine 1.0, Est GFR ( Amer) > 60, Est GFR (Non- Af Amer) > 60, Random Glucose 98, Calcium 9.7, Magnesium 2.5 H, Total Bilirubin 0.3, AST 50, ALT 64 H, Alkaline Phosphatase 65, Lactate Dehydrogenase 520, Total Creatine Kinase 243 H, CK-MB (CK-2) 1.3, CK-MB (CK-2) % Cancelled, Troponin I < 0.01, Total Protein 7.9, Albumin 5.0 H, Globulin 3.0, Albumin/ Globulin Ratio 1.7 02/21/18 00:00: PT 11.6, INR 1.02, APTT 30.9 02/21/18 00:00: WBC 12.5 H, RBC 4.25, Hgb 14.2, Hct 40.3 L, MCV 94.8, MCH 33.4, MCHC 35.2, RDW 12.7, Plt Count 332, MPV 9.6, Gran % 63.7, Lymph % (Auto) 28.6, [place] % (Auto) 5.0, Eos % (Auto) 2.0, Baso % (Auto) 0.7, Gran # 7.95 H, Lymph # ( Auto) 3.6 H, [place] # (Auto) 0.6, Eos # (Auto) 0.3, Baso # (Auto) 0.09 I have reviewed the lab results: Yes - RAD Interpretation Radiology Orders: 02/20/18 23:35 CHEST PORTABLE [RAD] Stat Fur Cleaner: ED Physician (chest no acute) - EKG Interpretation Interpreted by ED Physician: Yes (sinus bradycardia) Type: 12 lead EKG Comparison: Similar to previous EKG (02/03/18) - Medication Orders Current Medication Orders: Sodium Chloride (Sodium Chloride 0.9%) 1,000 mls @ 100 mls/hr IV .Q10H LAWSON Discontinued Medications Aspirin (Aspirin) 325 mg PO STAT STA Stop: 02/20/18 23:36 Last Admin: 02/21/18 00:20 Dose: 325 mg Lorazepam (Ativan) 1 mg IM ONCE ONE PRN Reason: Protocol Stop: 02/20/18 23:49 Last Admin: 02/21/18 00:20 Dose: 1 mg IM Administration Charges Document 02/21/18 00:20 AD (Rec: 02/21/18 00:21 AD [id number]) Injection Site MAR Injection Site Left Deltoid Charges for Administration # of IM Administrations 1 Disposition/Present on Arrival - Present on Arrival Any Indicators Present on Arrival: No History of DVT/PE: No History of Uncontrolled Diabetes: No Urinary Catheter: No History of Decub. Ulcer: No History Surgical Site Infection Following: None - Disposition Have Diagnosis and Disposition been Completed?: Yes Diagnosis: Chest pain, Alcohol abuse Disposition: HOSPITALIZED Disposition Time: 04:40 Patient Plan: Admission Patient Problems: Current Active Problems Problem Status Onset Alcohol abuse Acute Chest pain Acute Condition: STABLE Discharge Instructions (ExitCare): Chest Pain (ED), Alcohol Intoxication (ED), Abuse of Alcohol (ED), Alcohol Dependence (ED) Referrals: Sheela Puga MD [Primary Care Provider] - Follow up with primary Forms: [employer] (Georgian)
[2018-02-21 00:42] LABS: BASO # 0.09 K/mm3 (0.0-2.0); BASO % 0.7 % (0.0-3.0); EOS # 0.3 (0.0-0.7); GRAN # 7.95 (1.4-6.5); GRAN % 63.7 % (50.0-68.0); HEMOGLOBIN 14.2 g/dL (14.0-18.0); LYMPH # 3.6 (1.2-3.4); LYMPH % 28.6 % (22.0-35.0); MEAN CELL VOLUME 94.8 fl (80.0-105.0); MEAN CORPUSCULAR HEMOGLOBIN 33.4 pg (25.0-35.0); MEAN CORPUSCULAR HGB CONC 35.2 g/dl (31.0-37.0); MEAN PLATELET VOLUME 9.6 fl (7.0-11.0); MONO # 0.6 (0.1-0.6); RBC 4.25 10^6/uL (3.5-6.1); RED CELL DISTRIBUTION WIDTH 12.7 % (11.5-14.5); WHITE BLOOD COUNT 12.5 10^3/ul (4.5-11.0)
[2018-02-21 00:42] LABS: URINE BILIRUBIN NEGATIVE (NEGATIVE); URINE BLOOD NEGATIVE (NEGATIVE); URINE GLUCOSE (UA) NEGATIVE (NEGATIVE); URINE LEUKOCYTE ESTERASE NEGATIVE Leu/uL (NEGATIVE); URINE PROTEIN NEGATIVE mg/dL (<30 mg/dL); URINE UROBILINOGEN 0.2 E.U./dL (<1 E.U./dL)
[2018-02-21 00:46] LABS: URINE APPEARANCE CLEAR (CLEAR); URINE COLOR YELLOW (YELLOW)
[2018-02-21 00:53] LABS: SALICYLATE < 1 mg/dL (2.0-20.0)
[2018-02-21 00:56] LABS: INR 1.02 (0.93-1.08); PARTIAL THROMBOPLASTIN TIME 30.9 Seconds (25.1-36.5); PROTHROMBIN TIME 11.6 SECONDS (9.4-12.5)
[2018-02-21 01:02] LABS: BARBITURATES, UR NEGATIVE (NEGATIVE); BENZODIAZEPINES, UR NEGATIVE (NEGATIVE); OPIATES, UR NEGATIVE (NEGATIVE); PHENCYCLIDINE, UR NEGATIVE (NEGATIVE)
[2018-02-21 01:10] LABS: TROPONIN I < 0.01 ng/mL
[2018-02-21 01:36] LABS: ALB/GLOB RATIO 1.7 (1.1-1.8); ALT/SGPT 64 U/L (7-56); AST/SGOT 50 U/L (17-59); BLOOD UREA NITROGEN 11 mg/dL (7-21); CALCIUM 9.7 mg/dL (8.4-10.5); GFR AFRICAN-AMERICAN > 60; GFR NON-AFRICAN AMERICAN > 60
[2018-02-21 01:38] LABS: CK-MB 1.3 ng/mL (0.0-3.6)
[2018-02-21] MEDS ORDERED: Sodium Chloride 0.9% 1,000 ML IV SCH (04:45)
[2018-02-21] MEDS ORDERED: Multivitamin (MVI) 10 ML, Thiamine 100 MG, Folic Acid 1 MG in Dextrose 5% In Water 1,00... IV ONE (06:02)
--- NOTE | 2018-02-21 06:52 | CP.PCM.HP ---
History of Present Illness - History of Present Illness History of Present Illness: Medicine H/P: Dr. Heidi Wick 27 year old male with past medical history of polysubstance abuse comes in with complaints of R sided, non radiating, pressure-like 5/10 chest pain that started last night after he and his friends did cocaine. Patient states that he has never had any cardiac work up in the past including stress test, cath, and echocardiogram. Patient's mother at bedside states that she is concerned about her son's addictive behavior. Patient denies any associated symptoms of shortness of breath, fevers, chills, nausea, vomiting, or diarrhea. Of note, patient has been here several times in the past with alcohol intoxication and withdrawal ROS: 12 point ROS obtained and negative except as per HPI PMH: Polysubstance abuse (alcohol, heroin, cocaine) PSH: Right upper extremity surgical repair s/p accident, appendectomy, right ankle surgery Social History: 15 pack year history, alcohol abuse, marijuana, cocaine and methamphetamine use. Hospitalization: Multiple in past month for alcohol Intoxication/Withdrawal FMH: DM ALL: NKDA Medication: Clonazepam BID Present on Admission - Present on Admission Any Indicators Present on Admission: No Past Patient History - Infectious Disease Hx of Infectious Diseases: None - Tetanus Immunizations Tetanus Immunization: Unknown - Past Social History Smoking Status: Heavy Smoker > 10 Cigarettes Daily - CARDIAC Hx Cardiac Disorders: No - PULMONARY Hx Respiratory Disorders: No - NEUROLOGICAL Hx Neurological Disorder: No - HEENT Hx HEENT Problems: No - RENAL Hx Chronic Kidney Disease: No - ENDOCRINE/METABOLIC Hx Endocrine Disorders: No - HEMATOLOGICAL/ONCOLOGICAL Hx Blood Disorders: No - INTEGUMENTARY Hx Dermatological Problems: No - MUSCULOSKELETAL/RHEUMATOLOGICAL Hx Musculoskeletal Disorders: Yes Hx Fractures: Yes - GASTROINTESTINAL Hx Gastrointestinal Disorders: No - GENITOURINARY/GYNECOLOGICAL Hx Genitourinary Disorders: No - PSYCHIATRIC Hx Psychophysiologic Disorder: Yes Hx Anxiety: Yes Hx Depression: Yes Hx Panic Symptoms: Yes Hx Substance Use: Yes - SURGICAL HISTORY Hx Appendectomy: Yes Hx Musculoskeletal Surgery: Yes Hx Orthopedic Surgery: Yes - ANESTHESIA Hx Anesthesia: Yes Hx Anesthesia Reactions: No Hx Malignant Hyperthermia: No Meds Allergies/Adverse Reactions: Allergies Allergy/AdvReac Type Severity Reaction Status Date / Time No Known Allergies Allergy Verified 02/20/18 23:11 Physical Exam - Constitutional Appears: Well - Head Exam Head Exam: ATRAUMATIC, NORMAL INSPECTION, NORMOCEPHALIC - Eye Exam Eye Exam: EOMI, Normal appearance, PERRL Pupil Exam: NORMAL ACCOMODATION, PERRL - ENT Exam ENT Exam: Mucous Membranes Moist, Normal Exam - Neck Exam Neck exam: Positive for: Normal Inspection - Respiratory Exam Respiratory Exam: Clear to Auscultation Bilateral, NORMAL BREATHING PATTERN - Cardiovascular Exam Cardiovascular Exam: REGULAR RHYTHM - GI/Abdominal Exam GI & Abdominal Exam: Normal Bowel Sounds, Soft. absent: Tenderness - Extremities Exam Extremities exam: Positive for: normal inspection - Back Exam Back exam: NORMAL INSPECTION - Neurological Exam Neurological exam: Alert, CN II-XII Intact, Normal Gait, Oriented x3, Reflexes Normal - Psychiatric Exam Psychiatric exam: Normal Affect, Normal Mood - Skin Skin Exam: Dry, Intact, Normal Color, Warm Results - Vital Signs Recent Vital Signs: Last Vital Signs Temp 98.2 F 02/20/18 23:00 Pulse 57 L 02/21/18 06:07 Resp 18 02/21/18 05:23 BP 116/71 02/21/18 05:23 Pulse Ox 95 02/21/18 05:23 - Labs Result Diagrams: 02/21/18 00:00 02/21/18 00:00 Assessment & Plan - Assessment and Plan (Free Text) Assessment: 27 year old male with past medical history of polysubstance abuse presents with chest pain and alcohol intoxication. Patient's initial troponin negative, initial EKG negative for ST/T changes. Patient's alcohol level is low but positive in the ED, patient will likely begin withdrawing in the next 72 hours. Patient was evaluated by psychiatry, who would like to be on consult for the patient during the day. Plan: ETOH Intoxication/Withdrawl - Banana Bag, Ativan 2mg Q2 PRN and 1 mg q6 [facility] - CIWA protocol, seizure and aspiration precautions, neurochecks - Consider librium if patient begins withdrawing History of Anxiety - Continue home medications, pending psych consult - Psych consult: Dr. Browne History of Polysubstance Abuse - Discussed cessation with the patient extensively GI/DVT Prophylaxis - Protonix/SCD's Diet: regular Labs pending: Troponins
--- NOTE | 2018-02-21 09:27 | CARD ---
APPROVED REPORT EKG Measurement Heart [id number] [id number] <Conclusion> Sinus bradycardia Incomplete right bundle branch block LVH by voltage No change except increased voltage V 4 - 6 c/w ECG 02/20/18
--- NOTE | 2018-02-21 09:32 | CARD ---
APPROVED REPORT EKG Measurement Heart [id number] <Conclusion> Sinus bradycardia Incomplete right bundle branch block WNL
[2018-02-21] MEDS: Folic Acid 1 MG, Thiamine 100 MG, Multivitamin (MVI) 10 ML in Dextrose 5% In Water 1,00... IV SCH ×2 (09:37→17:32)
--- NOTE | 2018-02-21 11:36 | RAD ---
HISTORY: 27yoM, chest pain COMPARISON: 02/01/2018 FINDINGS: LUNGS: No active pulmonary disease. PLEURA: No significant pleural effusion identified, no pneumothorax apparent. CARDIOVASCULAR: Normal. OSSEOUS STRUCTURES: No significant abnormalities. VISUALIZED UPPER ABDOMEN: Normal. OTHER FINDINGS: None. IMPRESSION: No active disease.
[2018-02-22] MEDS: Folic Acid 1 MG, Thiamine 100 MG, Multivitamin (MVI) 10 ML in Dextrose 5% In Water 1,00... IV SCH (05:10)
[2018-02-22] MEDS ORDERED: Pantoprazole 40 mg EC Tab PO SCH (06:00)
[2018-02-22 07:17] LABS: BASO # 0.08 K/mm3 (0.0-2.0); EOS # 0.6 (0.0-0.7); EOS % 7.5 % (1.5-5.0); GRAN # 3.8 (1.4-6.5); GRAN % 47.4 % (50.0-68.0); HEMOGLOBIN 13.6 g/dL (14.0-18.0); MEAN CELL VOLUME 96.4 fl (80.0-105.0); MEAN CORPUSCULAR HEMOGLOBIN 32.3 pg (25.0-35.0); MEAN CORPUSCULAR HGB CONC 33.5 g/dl (31.0-37.0); MEAN PLATELET VOLUME 9.6 fl (7.0-11.0); MONO # 0.6 (0.1-0.6); MONO % 7.1 % (1.0-6.0); RBC 4.21 10^6/uL (3.5-6.1); RED CELL DISTRIBUTION WIDTH 12.7 % (11.5-14.5)
[2018-02-22 07:46] LABS: ALB/GLOB RATIO 1.6 (1.1-1.8); ALBUMIN 4.2 g/dL (3.0-4.8); ALT/SGPT 52 U/L (7-56); AST/SGOT 33 U/L (17-59); BLOOD UREA NITROGEN 14 mg/dL (7-21); CALCIUM 9.2 mg/dL (8.4-10.5); GFR AFRICAN-AMERICAN > 60; GFR NON-AFRICAN AMERICAN > 60
--- NOTE | 2018-02-22 08:55 | CARD ---
APPROVED REPORT EKG Measurement Heart [id number] [id number] <Conclusion> Sinus bradycardia with marked sinus arrhythmia Incomplete right bundle branch block No change
[2018-02-22 09:18] VITALS: BP 97/72; RESP 18; TEMP 98.2; O2SAT 96
--- NOTE | 2018-02-22 12:55 | CP.PCM.DIS ---
<Bonnie Sandoval - Last Filed: 02/22/18 13:10> Provider - Provider Date of Admission: 02/21/18 04:43 Attending physician: Kip Zendejas MD Primary care physician: Sheela Puga MD Consults: Psych: Dr Browne Time Spent in preparation of Discharge (in minutes): 32 Hospital Course - Lab Results Lab Results: Most Recent Lab Values WBC 8.0 10^3/ul (4.5-11.0) D 02/22/18 06:30 RBC 4.21 10^6/uL (3.5-6.1) 02/22/18 06:30 Hgb 13.6 g/dL (14.0-18.0) L 02/22/18 06:30 Hct 40.6 % (42.0-52.0) L 02/22/18 06:30 MCV 96.4 fl (80.0-105.0) 02/22/18 06:30 MCH 32.3 pg (25.0-35.0) 02/22/18 06:30 MCHC 33.5 g/dl (31.0-37.0) 02/22/18 06:30 RDW 12.7 % (11.5-14.5) 02/22/18 06:30 Plt Count 280 10^3/uL (120.0-450.0) 02/22/18 06:30 MPV 9.6 fl (7.0-11.0) 02/22/18 06:30 Gran % 47.4 % (50.0-68.0) L 02/22/18 06:30 Lymph % (Auto) 37.0 % (22.0-35.0) H 02/22/18 06:30 [place] % (Auto) 7.1 % (1.0-6.0) H 02/22/18 06:30 Eos % (Auto) 7.5 % (1.5-5.0) H 02/22/18 06:30 Baso % (Auto) 1.0 % (0.0-3.0) 02/22/18 06:30 Gran # 3.80 (1.4-6.5) 02/22/18 06:30 Lymph # (Auto) 3.0 (1.2-3.4) 02/22/18 06:30 [place] # (Auto) 0.6 (0.1-0.6) 02/22/18 06:30 Eos # (Auto) 0.6 (0.0-0.7) 02/22/18 06:30 Baso # (Auto) 0.08 K/mm3 (0.0-2.0) 02/22/18 06:30 PT 11.6 SECONDS (9.4-12.5) 02/21/18 00:00 INR 1.02 (0.93-1.08) 02/21/18 00:00 APTT 30.9 Seconds (25.1-36.5) 02/21/18 00:00 Sodium 142 mmol/L (132-148) 02/22/18 06:30 Potassium 3.6 mmol/L (3.6-5.0) 02/22/18 06:30 Chloride 106 mmol/L (98-107) 02/22/18 06:30 Carbon Dioxide 23 mmol/L (21-33) 02/22/18 06:30 Anion Gap 16 (10-20) 02/22/18 06:30 BUN 14 mg/dL (7-21) 02/22/18 06:30 Creatinine 1.1 mg/dl (0.8-1.5) 02/22/18 06:30 Est GFR ( Amer) > 60 02/22/18 06:30 Est GFR (Non-Af Amer) > 60 02/22/18 06:30 Random Glucose 91 mg/dL (70-110) 02/22/18 06:30 Calcium 9.2 mg/dL (8.4-10.5) 02/22/18 06:30 Phosphorus 4.4 mg/dL (2.5-4.5) 02/22/18 06:30 Magnesium 2.1 mg/dL (1.7-2.2) 02/22/18 06:30 Total Bilirubin 0.5 mg/dL (0.2-1.3) 02/22/18 06:30 AST 33 U/L (17-59) 02/22/18 06:30 ALT 52 U/L (7-56) 02/22/18 06:30 Alkaline Phosphatase 51 U/L (38-126) 02/22/18 06:30 Lactate Dehydrogenase 520 U/L (333-699) 02/21/18 00:00 Total Creatine Kinase 243 U/L (35-230) H 02/21/18 00:00 CK-MB (CK-2) 1.3 ng/mL (0.0-3.6) 02/21/18 00:00 CK-MB (CK-2) % Cancelled 02/21/18 00:00 Troponin I < 0.01 ng/mL 02/21/18 14:22 Total Protein 6.9 g/dL (5.8-8.3) 02/22/18 06:30 Albumin 4.2 g/dL (3.0-4.8) 02/22/18 06:30 Globulin 2.7 gm/dL 02/22/18 06:30 Albumin/Globulin Ratio 1.6 (1.1-1.8) 02/22/18 06:30 Procalcitonin < 0.05 NG/ML (0.19-0.49) L 02/21/18 14:22 Urine Color Yellow (YELLOW) 02/21/18 00:02 Urine Appearance Clear (CLEAR) 02/21/18 00:02 Urine pH 8.0 (4.7-8.0) 02/21/18 00:02 Ur Specific [place] 1.015 (1.005-1.035) 02/21/18 00:02 Urine Protein Negative mg/dL (<30 mg/dL) 02/21/18 00:02 Urine Glucose (UA) Negative mg/dL (NEGATIVE) 02/21/18 00:02 Urine Ketones Negative mg/dL (NEGATIVE) 02/21/18 00:02 Urine Blood Negative (NEGATIVE) 02/21/18 00:02 Urine Nitrate Negative (NEGATIVE) 02/21/18 00:02 Urine Bilirubin Negative (NEGATIVE) 02/21/18 00:02 Urine Urobilinogen 0.2 E.U./dL (<1 E.U./dL) 02/21/18 00:02 Ur Leukocyte Esterase Negative Kiersten/uL (NEGATIVE) 02/21/18 00:02 Salicylates < 1 mg/dL (2.0-20.0) L 02/21/18 00:00 Urine Opiates Screen Negative (NEGATIVE) 02/21/18 00:02 Urine Methadone Screen Negative (NEGATIVE) 02/21/18 00:02 Acetaminophen 11.0 ug/ml (10.0-20.0) 02/21/18 00:00 Ur Barbiturates Screen Negative (NEGATIVE) 02/21/18 00:02 Ur Phencyclidine Scrn Negative (NEGATIVE) 02/21/18 00:02 Ur Amphetamines Screen Negative (NEGATIVE) 02/21/18 00:02 U Benzodiazepines Scrn Negative (NEGATIVE) 02/21/18 00:02 U Oth Cocaine Metabols Positive (NEGATIVE) H 02/21/18 00:02 U Cannabinoids Screen Positive (NEGATIVE) H 02/21/18 00:02 Alcohol, Quantitative 39 mg/dL (0-10) H 02/21/18 00:00 - Hospital Course Hospital Course: Patient is a 27 year old male with past medical history of polysubstance abuse and anxiety presented to [facility] with complaints of R sided, non radiating, pressure -like 5/10 chest pain that started last night after he and his friends did cocaine. Patient states that he has never had any cardiac work up in the past including stress test, cath, and echocardiogram. Patient's mother at bedside states that she is concerned about her son's addictive behavior. Patient denies any associated symptoms of shortness of breath, fevers, chills, nausea, vomiting, or diarrhea. Patient recently completed detox for 5-6 days for alcohol. He relapsed and was drinking with friends prior to admission. Patient was admitted for alcohol intoxication/withdrawal and chest pain. EKG showed sinus bradycardia with incomplete RBBB which is unchanged from previous EKGs. Troponins were negative x 3. UTOX is positive for cocaine, cannabinoids, alcohol level was 39. Patient started on banana bag for IV fluid hydration and Ativan for withdrawal symptoms. Ativan was tapered. On day of discharge, patient was doing well. Denies headaches, dizziness, cp, palpitations, sob, abdominal pain. Tremors improved. Psych consulted. Patient has an appointment at [facility] in 1 week. Reiterated once again the importance of alcohol and drug cessation. Patient stated that he will not drink anymore. Patient is medically stable for discharge. Discharge Exam - Head Exam Head Exam: ATRAUMATIC, NORMAL INSPECTION, NORMOCEPHALIC - Eye Exam Eye Exam: EOMI, Normal appearance Pupil Exam: NORMAL ACCOMODATION, PERRL - ENT Exam ENT Exam: Mucous Membranes Moist - Respiratory Exam Respiratory Exam: Clear to PA & Lateral, NORMAL BREATHING PATTERN. absent: Rales, Rhonchi, Wheezes - Cardiovascular Exam Cardiovascular Exam: REGULAR RHYTHM, +S1, +S2 - GI/Abdominal Exam GI & Abdominal Exam: Normal Bowel Sounds, Soft, Unremarkable. absent: Guarding , Rebound, Rigid, Tenderness - Extremities Exam Extremities exam: normal inspection - Neurological Exam Neurological exam: Alert, CN II-XII Intact, Normal Gait, Oriented x3 - Psychiatric Exam Psychiatric exam: Normal Affect, Normal Mood - Skin Skin Exam: Dry, Normal Color, Warm Discharge Plan - Follow Up Plan Condition: STABLE Disposition: HOME/ ROUTINE Instructions: Drug Abuse and Drug Addiction (DC), Alcohol Withdrawal (DC) Additional Instructions: 1. Please follow up with [facility] 2. Please refrain from alcohol and drug use. 3. Please take home medications as prescribed. Referrals: Sheela Puga MD [Primary Care Provider] - <Kip Zendejas - Last Filed: 02/22/18 16:18> Provider - Provider Date of Admission: 02/21/18 04:43 Attending physician: Kip Zendejas MD Primary care physician: Sheela Puga MD Hospital Course - Lab Results Lab Results: Most Recent Lab Values WBC 8.0 10^3/ul (4.5-11.0) D 02/22/18 06:30 RBC 4.21 10^6/uL (3.5-6.1) 02/22/18 06:30 Hgb 13.6 g/dL (14.0-18.0) L 02/22/18 06:30 Hct 40.6 % (42.0-52.0) L 02/22/18 06:30 MCV 96.4 fl (80.0-105.0) 02/22/18 06:30 MCH 32.3 pg (25.0-35.0) 02/22/18 06:30 MCHC 33.5 g/dl (31.0-37.0) 02/22/18 06:30 RDW 12.7 % (11.5-14.5) 02/22/18 06:30 Plt Count 280 10^3/uL (120.0-450.0) 02/22/18 06:30 MPV 9.6 fl (7.0-11.0) 02/22/18 06:30 Gran % 47.4 % (50.0-68.0) L 02/22/18 06:30 Lymph % (Auto) 37.0 % (22.0-35.0) H 02/22/18 06:30 [place] % (Auto) 7.1 % (1.0-6.0) H 02/22/18 06:30 Eos % (Auto) 7.5 % (1.5-5.0) H 02/22/18 06:30 Baso % (Auto) 1.0 % (0.0-3.0) 02/22/18 06:30 Gran # 3.80 (1.4-6.5) 02/22/18 06:30 Lymph # (Auto) 3.0 (1.2-3.4) 02/22/18 06:30 [place] # (Auto) 0.6 (0.1-0.6) 02/22/18 06:30 Eos # (Auto) 0.6 (0.0-0.7) 02/22/18 06:30 Baso # (Auto) 0.08 K/mm3 (0.0-2.0) 02/22/18 06:30 PT 11.6 SECONDS (9.4-12.5) 02/21/18 00:00 INR 1.02 (0.93-1.08) 02/21/18 00:00 APTT 30.9 Seconds (25.1-36.5) 02/21/18 00:00 Sodium 142 mmol/L (132-148) 02/22/18 06:30 Potassium 3.6 mmol/L (3.6-5.0) 02/22/18 06:30 Chloride 106 mmol/L (98-107) 02/22/18 06:30 Carbon Dioxide 23 mmol/L (21-33) 02/22/18 06:30 Anion Gap 16 (10-20) 02/22/18 06:30 BUN 14 mg/dL (7-21) 02/22/18 06:30 Creatinine 1.1 mg/dl (0.8-1.5) 02/22/18 06:30 Est GFR ( Amer) > 60 02/22/18 06:30 Est GFR (Non-Af Amer) > 60 02/22/18 06:30 Random Glucose 91 mg/dL (70-110) 02/22/18 06:30 Calcium 9.2 mg/dL (8.4-10.5) 02/22/18 06:30 Phosphorus 4.4 mg/dL (2.5-4.5) 02/22/18 06:30 Magnesium 2.1 mg/dL (1.7-2.2) 02/22/18 06:30 Total Bilirubin 0.5 mg/dL (0.2-1.3) 02/22/18 06:30 AST 33 U/L (17-59) 02/22/18 06:30 ALT 52 U/L (7-56) 02/22/18 06:30 Alkaline Phosphatase 51 U/L (38-126) 02/22/18 06:30 Lactate Dehydrogenase 520 U/L (333-699) 02/21/18 00:00 Total Creatine Kinase 243 U/L (35-230) H 02/21/18 00:00 CK-MB (CK-2) 1.3 ng/mL (0.0-3.6) 02/21/18 00:00 CK-MB (CK-2) % Cancelled 02/21/18 00:00 Troponin I < 0.01 ng/mL 02/21/18 14:22 Total Protein 6.9 g/dL (5.8-8.3) 02/22/18 06:30 Albumin 4.2 g/dL (3.0-4.8) 02/22/18 06:30 Globulin 2.7 gm/dL 02/22/18 06:30 Albumin/Globulin Ratio 1.6 (1.1-1.8) 02/22/18 06:30 Procalcitonin < 0.05 NG/ML (0.19-0.49) L 02/21/18 14:22 Urine Color Yellow (YELLOW) 02/21/18 00:02 Urine Appearance Clear (CLEAR) 02/21/18 00:02 Urine pH 8.0 (4.7-8.0) 02/21/18 00:02 Ur Specific [place] 1.015 (1.005-1.035) 02/21/18 00:02 Urine Protein Negative mg/dL (<30 mg/dL) 02/21/18 00:02 Urine Glucose (UA) Negative mg/dL (NEGATIVE) 02/21/18 00:02 Urine Ketones Negative mg/dL (NEGATIVE) 02/21/18 00:02 Urine Blood Negative (NEGATIVE) 02/21/18 00:02 Urine Nitrate Negative (NEGATIVE) 02/21/18 00:02 Urine Bilirubin Negative (NEGATIVE) 02/21/18 00:02 Urine Urobilinogen 0.2 E.U./dL (<1 E.U./dL) 02/21/18 00:02 Ur Leukocyte Esterase Negative Kiersten/uL (NEGATIVE) 02/21/18 00:02 Salicylates < 1 mg/dL (2.0-20.0) L 02/21/18 00:00 Urine Opiates Screen Negative (NEGATIVE) 02/21/18 00:02 Urine Methadone Screen Negative (NEGATIVE) 02/21/18 00:02 Acetaminophen 11.0 ug/ml (10.0-20.0) 02/21/18 00:00 Ur Barbiturates Screen Negative (NEGATIVE) 02/21/18 00:02 Ur Phencyclidine Scrn Negative (NEGATIVE) 02/21/18 00:02 Ur Amphetamines Screen Negative (NEGATIVE) 02/21/18 00:02 U Benzodiazepines Scrn Negative (NEGATIVE) 02/21/18 00:02 U Oth Cocaine Metabols Positive (NEGATIVE) H 02/21/18 00:02 U Cannabinoids Screen Positive (NEGATIVE) H 02/21/18 00:02 Alcohol, Quantitative 39 mg/dL (0-10) H 02/21/18 00:00 Attending/Attestation - Attestation I have personally seen and examined this patient.: Yes I have fully participated in the care of the patient.: Yes I have reviewed all pertinent clinical information, including history, physical exam and plan: Yes Notes (Text): 02/22/18 16:16 Medical record note made by the resident after discussion with my direction and input after the patient was personally seen and examined by me. I have reviewed the chart and agree that the record accurately reflects by personal performance of the history, physical exam, data review, and medical decision-making, in the course for the patient. I have also personally directed the plan of care. 27 yrs old male with H/O alcohol abuse and drug abuse was admitted with right sided chest pain.EKG is negative for ischemic changes.Serial troponins are normal. Patient is pain free.There is no sign of alcohol withdrawal at this time. Issue of ongoing alcohol and drug abuse was discussed in detail with him Management plan was discussed in detail with patient. Education was provided. Prognosis is guarded.
[2018-02-22 13:11] VITALS: PULSE 40
--- NOTE | 2018-02-22 14:36 | CON ---
DATE: ISTORHISTORY OF PRESENT ILLNESS: In short, the patient is a 27-year-old male with long and debilitating history of polysubstance abuse and dependence. The patient was admitted on the medical side for evaluation of chest pain and anxiety, which was most likely related to the substance abuse and relapse. The patient relapsed on cocaine and alcohol. Psych consult was called because the patient has history of polysubstance abuse and dependence and had one psych admission last month. The patient was discharged from the psychiatric inpatient unit on 02/09 with a followup appointment at [facility] program. The patient was seen and examined today. 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 The patient presented relatively well now. The patient reported that he was clean and sober since the time of discharge from the psychiatric inpatient unit. The patient reported that he relapsed last Thursday and he was using alcohol and cocaine. Denied using any other substances. The patient reported that he was followed up by the psychiatrist and therapist at [facility] and he has followup appointment sometime next week. The patient reported that he is compliant with the medications. Denies any side effects, was to be resumed on that medication. The patient's previous discharge summary was reviewed. The patient was discharged on Remeron 15 mg, Wellbutrin 100 mg daily, naltrexone as well as multivitamins. The patient denied being depressed. Denied thoughts of harming himself. The patient denied hearing voices, denied seeing things. The patient denied feeling anxious and the patient reported that he is doing relatively well at this time and was able to tolerate food. The patient did not find the job yet and did not apply for GED classes as he was planning to do at the time of admission from the psychiatric inpatient unit. OBJECTIVE VITAL SIGNS: Seems to be stable. Temperature is 98.2, pulse is 47, blood pressure 97/72, respirations 18, oxygen saturation 93. MEDICATIONS: Reviewed. Folic acid; Ativan; Wellbutrin resumed at 100 mg daily, Remeron 15 mg at the nighttime, multivitamins, NicoDerm, thiamine. DATA: Labs reviewed. WBCs were elevated at the time of admission; on , was 12.5 and today, it is trending down to 8. Coagulation reviewed. Chemistry reviewed. AST and ALT within normal limits. Creatine kinase 243 at the time of admission, it is going down now. Toxicology was positive for cocaine, cannabis as well as alcohol. MENTAL STATUS EXAMINATION: The patient appears to be alert, oriented, pleasant, cooperative, intermittent eye contact. It seems the patient relapsed on alcohol and drugs. Mood described, I am fine. Affect was constricted but reactive. Mood congruent. Thought process seems to be coherent and goal directed. Thought content, the patient denied visual, auditory, tactile hallucinations. Does not present to be psychotic. Insight and judgment seems to be improving. Impulses are well controlled. IMPRESSION: As per history, polysubstance abuse and dependence. As per history, possible attention deficit hyperactivity disorder. Rule out anxiety and depression due to chronic substance abuse versus substance-induced mood and anxiety disorder. PLAN: Continue current management. Continue current medications. The patient is supposed to have at least 2-week supply of all the medications. Since the time of discharge, the patient has followup appointment at [facility] program. The patient presented not to be depressed, not psychotic. This job specification writer will sign off. The patient pose no imminent danger to self or others. Should you have any questions, give me a call back. Thank you very much for letting me participate in care of your patient Hollie Orellana MD
[2018-02-23] MEDS ORDERED: Multivitamin Therapeutic Tab PO SCH (10:00)
== END 2018-02-22 15:48 | disposition home or self-care (01) ==
LOC: ED 23:00 → ERH 02-21 04:43 → 3RNO 02-21 06:09
PROVIDERS: ADMIT Internal Medicine; ATTEND Internal Medicine
DX: R07.9 Chest pain, unspecified (principal); F10.129 Alcohol abuse with intoxication, unspecified; F14.10 Cocaine abuse, uncomplicated; F12.10 Cannabis abuse, uncomplicated; F11.10 Opioid abuse, uncomplicated; F15.10 Other stimulant abuse, uncomplicated; F41.0 Panic disorder [episodic paroxysmal anxiety]; F32.9 Major depressive disorder, single episode, unspecified; I45.10 Unspecified right bundle-branch block; R00.1 Bradycardia, unspecified; Y90.1 Blood alcohol level of 20-39 mg/100 ml
CPT/HCPCS: 36415; 71045; 80053; 80320; 80324; 80329; 80345; 80346; 80349; 80353; 80358; 80361; 81003; 82550; 82553; 83615; 83735; 83992; 84100; 84145; 84484; 85025; 85610; 85730; 90791; 93005; 96372; 99285; G0378; J2060; J3411; J7040; J7070

== ENCOUNTER 2018-02-22 21:38 | Emergency (ER) | payer MEDICAID, OTHER ==
[2018-02-22 21:38] VITALS: BMI 26.6
[2018-02-22 22:00] VITALS: TEMP 98.3
[2018-02-23 01:05] LABS: BASO # 0.05 K/mm3 (0.0-2.0); BASO % 0.5 % (0.0-3.0); EOS # 0.6 (0.0-0.7); EOS % 6.1 % (1.5-5.0); GRAN # 4.94 (1.4-6.5); HEMOGLOBIN 14.1 g/dL (14.0-18.0); LYMPH # 3.6 (1.2-3.4); LYMPH % 37.6 % (22.0-35.0); MEAN CELL VOLUME 95.8 fl (80.0-105.0); MEAN CORPUSCULAR HEMOGLOBIN 33.1 pg (25.0-35.0); MEAN CORPUSCULAR HGB CONC 34.6 g/dl (31.0-37.0); MEAN PLATELET VOLUME 9.3 fl (7.0-11.0); MONO # 0.5 (0.1-0.6); MONO % 4.8 % (1.0-6.0); RBC 4.26 10^6/uL (3.5-6.1); RED CELL DISTRIBUTION WIDTH 12.4 % (11.5-14.5); WHITE BLOOD COUNT 9.7 10^3/ul (4.5-11.0)
[2018-02-23 01:23] LABS: ALB/GLOB RATIO 1.5 (1.1-1.8); ALBUMIN 4.5 g/dL (3.0-4.8); ALT/SGPT 50 U/L (7-56); AST/SGOT 29 U/L (17-59); BLOOD UREA NITROGEN 13 mg/dL (7-21); CALCIUM 9.3 mg/dL (8.4-10.5); GFR AFRICAN-AMERICAN > 60; GFR NON-AFRICAN AMERICAN > 60
[2018-02-23 01:31] LABS: TROPONIN I < 0.01 ng/mL
[2018-02-23 03:07] LABS: ACETAMINOPHEN < 10.0 ug/ml (10.0-20.0); SALICYLATE < 1 mg/dL (2.0-20.0)
[2018-02-23 03:21] LABS: PHENCYCLIDINE, UR NEGATIVE (NEGATIVE)
--- NOTE | 2018-02-23 03:49 | ED PDOC ---
Arrival/HPI - General Chief Complaint: Chest Pain Time Seen by Provider: 02/23/18 00:26 Historian: Patient - History of Present Illness Narrative History of Present Illness (Text): 02/23/18 03:41 27-year-old female with a history of alcohol abuse presents today complaining of chest pain. Patient states he was just discharged from the hospital today and started to feel very anxious and developed anterior chest pain nonradiating. Patient states to help his chest pain he drank some alcohol. He denies any drug use today. Patient denies fevers or chills. Patient denies any trauma or injury. Patient denies back pain or urinary symptoms. Patient denies cocaine use today. Patient states this is the same pain he was feeling when he was admitted to the hospital previously. Patient states he doesn't know what to do because she gets the Ativan he feels good and the chest pain goes away but the minute he stops taking the Ativan the pain returns. Time/Duration: 1-3 hours Past Medical History - Provider Review Nursing Documentation Reviewed: Yes - Travel History Have you recently traveled outside [place] w/in the past 3 mons?: No - Past History Past History: No Previous (alcohol dependent) - Infectious Disease Hx of Infectious Diseases: None - Tetanus Immunization Tetanus Immunization: Unknown - Past Medical History Past Medical History: No Previous - Cardiac Hx Cardiac Disorders: No - Pulmonary Hx Respiratory Disorders: No - Neurological Hx Neurological Disorder: No - HEENT Hx HEENT Disorder: No - Renal Hx Renal Disorder: No - Endocrine/Metabolic Hx Endocrine Disorders: No - Hematological/Oncological Hx Blood Disorders: No - Integumentary Hx Dermatological Disorder: No - Musculoskeletal/Rheumatological Hx Musculoskeletal Disorders: Yes Hx Fractures: Yes - Gastrointestinal Hx Gastrointestinal Disorders: No - Genitourinary/Gynecological Hx Genitourinary Disorders: No - Psychiatric Hx Psychophysiologic Disorder: Yes Hx Anxiety: Yes Hx Depression: Yes Hx Panic Disorder: Yes Hx Substance Use: Yes - Past Surgical History Past Surgical History: No Previous - Surgical History Hx Appendectomy: Yes Hx Musculoskeletal Surgery: Yes Hx Orthopedic Surgery: Yes - Anesthesia Hx Anesthesia: Yes Hx Anesthesia Reactions: No Hx Malignant Hyperthermia: No - Suicidal Assessment Feels Threatened In Home Enviroment: No Family/Social History - Physician Review Nursing Documentation Reviewed: Yes Family/Social History: Unknown Family HX Smoking Status: Heavy Smoker > 10 Cigarettes Daily Hx Alcohol Use: Yes Hx Substance Use: Yes Substance used: marijuana Hx Substance Use Treatment: No Allergies/Home Meds Allergies/Adverse Reactions: Allergies No Known Allergies Allergy (Verified 02/20/18 23:11) Home Medications: Home Meds Medication Instructions Recorded Confirmed Ibuprofen 800 mg PO Q6H PRN 02/21/18 02/22/18 Multivitamins [Hexavitamin] 1 tab PO DAILY 02/21/18 02/22/18 Naltrexone [Revia] 50 mg PO DAILY 02/21/18 02/22/18 Propranolol [Inderal] 10 mg PO BID 02/21/18 02/22/18 hydrOXYzine Pamoate [Vistaril] 50 mg PO BID PRN 02/21/18 02/22/18 Review of Systems - Review of Systems Constitutional: absent: Fatigue, Fevers Respiratory: SOB. absent: Cough Cardiovascular: Chest Pain. absent: Palpitations Gastrointestinal: absent: Abdominal Pain, Nausea, Vomiting Genitourinary Male: absent: Dysuria Musculoskeletal: absent: Arthralgias, Back Pain, Neck Pain Skin: absent: Rash, Pruritis Neurological: absent: Headache, Dizziness Psychiatric: Anxiety, Depression. absent: Suicidal Ideation Physical Exam Vital Signs Reviewed: Yes Vital Signs Temp Pulse Resp BP Pulse Ox 02/22/18 21:59 98.3 F 87 20 119/79 95 Temperature: Afebrile Blood Pressure: Normal Pulse: Regular Respiratory Rate: Normal Appearance: Positive for: Well-Appearing, Non-Toxic, Comfortable Pain Distress: None Mental Status: Positive for: Alert and Oriented X 3 - Systems Exam Head: Present: Atraumatic Mouth: Present: Moist Mucous Membranes Neck: Present: Normal Range of Motion Respiratory/Chest: Present: Clear to Auscultation, Good Air Exchange. No: Respiratory Distress, Accessory Muscle Use Cardiovascular: Present: Regular Rate and Rhythm, Normal S1, S2. No: Murmurs Abdomen: No: Tenderness, Distention, Rebound, Guarding Upper Extremity: Present: Normal Inspection, Normal ROM Lower Extremity: Present: Normal Inspection, Normal ROM Neurological: Present: GCS=15, Speech Normal Skin: Present: Warm, Dry, Normal Color. No: Rashes Psychiatric: Present: Alert, Oriented x 3 Medical Decision Making ED Course and Treatment: 02/23/18 03:43 pt with chest pain ; pt non toxic well appearing; no distress. vitals stable cbc; wnl cmp; wnl D-dimer; wnl trop: wnl ekg; normal sinus rhythm at 85 bpm with an incomplete right bundle branch block no ST elevations normal axis normal intervals QTC 423 cxr: wnl Patient is nontoxic well-appearing in no distress vital signs are stable. CBC WNL CMP WNL Tylenol WNL Salicylate WNL Alcohol level 158 Urine drug screen wnl UA; wnl pt was given ativan IM with resolution of chest pain and anxiety. pt is medically cleared for PES evaluation Patient was seen and evaluated by PES screener: FELISA pt reassessment; pt non toxic well appearing; no distress. stable vitals. alert and oriented; ambulating with steady gait. clinically sober. Patient has been advised to not leave the emergency room but has decided to go AGAINST MEDICAL ADVICE. The patient possesses capacity to make decisions and has voiced understanding to all my warnings of potential worsening of the condition for which medical care was sought. I have discussed all known and potential risks and consequences to the patient leaving AGAINST MEDICAL ADVICE. Patient is leaving against medical advise. AMA form signed. witness by JAKE Nair. all aspects of this case were discussed the attending of record. Impression; Chest pain, alcohol abuse AMA return if you wish to continue your care Follow up with the parachute marker within the next 2 days follow up with the psychiatrist within the next 2 days Follow up with the primary care physician within the next 2 days. take your medications as prescribed. return immediately if symptoms worsen,persist or if new symptoms develop. - Lab Interpretations Lab Results: 02/23/18 00:55 02/23/18 00:55 Lab Results 02/23/18 02:50: Urine Opiates Screen Pending, Urine Methadone Screen Negative, Ur Barbiturates Screen Pending, Ur Phencyclidine Scrn Negative, Ur Amphetamines Screen Negative, U Benzodiazepines Scrn Pending, U Oth Cocaine Metabols Negative , U Cannabinoids Screen Pending 02/23/18 00:55: Salicylates < 1 L, Acetaminophen < 10.0 L 02/23/18 00:55: WBC 9.7 D, RBC 4.26, Hgb 14.1, Hct 40.8 L, MCV 95.8, MCH 33.1, MCHC 34.6, RDW 12.4, Plt Count 273, MPV 9.3, Gran % 51.0, Lymph % (Auto) 37.6 H , Brooke % (Auto) 4.8, Eos % (Auto) 6.1 H, Baso % (Auto) 0.5, Gran # 4.94, Lymph # (Auto) 3.6 H, Brooke # (Auto) 0.5, Eos # (Auto) 0.6, Baso # (Auto) 0.05 02/23/18 00:55: Alcohol, Quantitative 158 H 02/23/18 00:55: Sodium 146, Potassium 3.5 L, Chloride 110 H, Carbon Dioxide 20 L , Anion Gap 20, BUN 13, Creatinine 1.0, Est GFR ( Amer) > 60, Est GFR ( Non-Af Amer) > 60, Random Glucose 97, Calcium 9.3, Total Bilirubin 0.2, AST 29, ALT 50, Alkaline Phosphatase 67, Lactate Dehydrogenase 380, Total Creatine Kinase 160, Troponin I < 0.01, Total Protein 7.4, Albumin 4.5, Globulin 3.0, Albumin/Globulin Ratio 1.5 02/23/18 00:55: D-Dimer, Quantitative < 200 - RAD Interpretation Radiology Orders: 02/23/18 00:26 CHEST PORTABLE [RAD] Stat - Medication Orders Current Medication Orders: Discontinued Medications Lorazepam (Ativan) 1 mg IM ONCE ONE PRN Reason: Protocol Stop: 02/23/18 02:46 Last Admin: 02/23/18 02:57 Dose: 1 mg IM Administration Charges Document 02/23/18 02:57 YOVANY (Rec: 02/23/18 02:57 YOVANY [id number]) Injection Site MAR Injection Site Left Deltoid Charges for Administration # of IM Administrations 1 Disposition/Present on Arrival - Present on Arrival Any Indicators Present on Arrival: No History of DVT/PE: No History of Uncontrolled Diabetes: No Urinary Catheter: No History of Decub. Ulcer: No History Surgical Site Infection Following: None - Disposition Have Diagnosis and Disposition been Completed?: Yes Diagnosis: Alcohol abuse, Chest pain Disposition: AGAINST MEDICAL ADVICE Disposition Time: 04:00 Patient Plan: Other (AMA) Condition: UNKNOWN Discharge Instructions (ExitCare): Chest Pain (ED), Alcohol Abuse and Alcoholism (DC) Additional Instructions: return if you wish to continue your care Follow up with the parachute marker within the next 2 days follow up with the psychiatrist within the next 2 days Follow up with the primary care physician within the next 2 days. take your medications as prescribed. return immediately if symptoms worsen,persist or if new symptoms develop. Referrals: Gerardo Mccall MD [Staff Provider] - Follow up with primary Sage Torres MD [Non-Staff] - Follow up with primary Eric Vickers MD [Staff Provider] - Follow up with primary Forms: [facility] (Hebrew), WORK NOTE
[2018-02-23 03:58] VITALS: BP 124/72; PULSE 78; RESP 18; O2SAT 98
[2018-02-23 04:05] LABS: BARBITURATES, UR NEGATIVE (NEGATIVE); BENZODIAZEPINES, UR NEGATIVE (NEGATIVE); OPIATES, UR NEGATIVE (NEGATIVE)
--- NOTE | 2018-02-23 08:35 | RAD ---
HISTORY: cp/sob COMPARISON: 02/20/2018. FINDINGS: LUNGS: The lungs are well inflated and clear. PLEURA: No significant pleural effusion identified, no pneumothorax apparent. CARDIOVASCULAR: Normal. OSSEOUS STRUCTURES: No significant abnormalities. VISUALIZED UPPER ABDOMEN: Normal. OTHER FINDINGS: None. IMPRESSION: No active pulmonary disease.
== END 2018-02-23 04:08 | disposition left against medical advice (07) ==
LOC: ED 21:38
DX: F10.10 Alcohol abuse, uncomplicated (principal); R07.9 Chest pain, unspecified; F17.210 Nicotine dependence, cigarettes, uncomplicated
CPT/HCPCS: 71045; 80053; 80320; 80324; 80329; 80345; 80346; 80349; 80353; 80358; 80361; 82550; 83615; 83992; 84484; 85025; 85378; 90791; 96372; 99283; J2060

== ENCOUNTER 2018-02-23 04:41 | Emergency (ER) | payer OTHER ==
[2018-02-23 04:43] VITALS: BMI 26.6
[2018-02-23 06:17] VITALS: RESP 18; TEMP 98.2
--- NOTE | 2018-02-23 07:20 | ED PDOC ---
Arrival/HPI - General Chief Complaint: Anxiety Time Seen by Provider: 02/23/18 07:14 Historian: Patient - History of Present Illness Narrative History of Present Illness (Text): 02/23/18 07:17 A 27 year old male, whose past medical history includes intoxication, anxiety, depression, and substance abuse, presents to the emergency department complaining of anxiety, chest pain, and depression. Patient reports last drink was last night. Patient notes no other complaints at this time. Mentions he wants to be admitted to psychiatric floor. PMD: Dr. Puga Past Medical History - Provider Review Nursing Documentation Reviewed: Yes - Past History Past History: No Previous (alcohol dependent) - Infectious Disease Hx of Infectious Diseases: None - Tetanus Immunization Tetanus Immunization: Unknown - Past Medical History Past Medical History: No Previous - Cardiac Hx Cardiac Disorders: No - Pulmonary Hx Respiratory Disorders: No - Neurological Hx Neurological Disorder: No - HEENT Hx HEENT Disorder: No - Renal Hx Renal Disorder: No - Endocrine/Metabolic Hx Endocrine Disorders: No - Hematological/Oncological Hx Blood Disorders: No - Integumentary Hx Dermatological Disorder: No - Musculoskeletal/Rheumatological Hx Musculoskeletal Disorders: Yes Hx Fractures: Yes - Gastrointestinal Hx Gastrointestinal Disorders: No - Genitourinary/Gynecological Hx Genitourinary Disorders: No - Psychiatric Hx Psychophysiologic Disorder: Yes Hx Anxiety: Yes Hx Depression: Yes Hx Panic Disorder: Yes Hx Substance Use: Yes - Past Surgical History Past Surgical History: No Previous - Surgical History Hx Appendectomy: Yes Hx Musculoskeletal Surgery: Yes Hx Orthopedic Surgery: Yes - Anesthesia Hx Anesthesia: Yes Hx Anesthesia Reactions: No Hx Malignant Hyperthermia: No - Suicidal Assessment Feels Threatened In Home Enviroment: No Family/Social History - Physician Review Nursing Documentation Reviewed: Yes Family/Social History: No Known Family HX Smoking Status: Heavy Smoker > 10 Cigarettes Daily Hx Alcohol Use: Yes Hx Substance Use: Yes Substance used: marijuana Hx Substance Use Treatment: No Allergies/Home Meds Allergies/Adverse Reactions: Allergies No Known Allergies Allergy (Verified 02/20/18 23:11) Home Medications: Home Meds Medication Instructions Recorded Confirmed Ibuprofen 800 mg PO Q6H PRN 02/21/18 02/22/18 Multivitamins [Hexavitamin] 1 tab PO DAILY 02/21/18 02/22/18 Naltrexone [Revia] 50 mg PO DAILY 02/21/18 02/22/18 Propranolol [Inderal] 10 mg PO BID 02/21/18 02/22/18 hydrOXYzine Pamoate [Vistaril] 50 mg PO BID PRN 02/21/18 02/22/18 Review of Systems - Physician Review All systems were reviewed & negative as marked: Yes - Review of Systems Cardiovascular: Chest Pain Psychiatric: Anxiety, Depression Physical Exam Vital Signs Reviewed: Yes Vital Signs Temp Pulse Resp BP Pulse Ox 02/23/18 06:14 98.2 F 88 18 132/74 100 Temperature: Afebrile Blood Pressure: Normal Pulse: Regular Respiratory Rate: Normal Appearance: Positive for: Well-Appearing Pain Distress: None Mental Status: Positive for: Alert and Oriented X 3 - Systems Exam Head: Present: Atraumatic, Normocephalic Pupils: Present: PERRL Extroacular Muscles: Present: EOMI Conjunctiva: Present: Normal Mouth: Present: Moist Mucous Membranes Neck: Present: Normal Range of Motion Respiratory/Chest: Present: Clear to Auscultation, Good Air Exchange. No: Respiratory Distress, Accessory Muscle Use Cardiovascular: Present: Regular Rate and Rhythm, Normal S1, S2. No: Murmurs Abdomen: No: Tenderness, Distention, Peritoneal Signs Back: Present: Normal Inspection Upper Extremity: Present: Normal Inspection. No: Cyanosis, Edema Lower Extremity: Present: Normal Inspection. No: Edema Neurological: Present: GCS=15, CN II-XII Intact, Speech Normal Skin: Present: Warm, Dry, Normal Color. No: Rashes Psychiatric: Present: Alert, Oriented x 3, Normal Insight, Normal Concentration Medical Decision Making ED Course and Treatment: 02/23/18 07:20 Impression: 27 year old male with depression, anxiety, and chest pains. Benign physical exam. Plan: -- EKG -- Labs -- Urinalysis -- Reassess and disposition Prior Visits: Notes and results from previous visits were reviewed. Patient was last seen in the emergency department on 02/22/2018 for chest pain. Patient left ama. Progress Notes: 02/23/18 08:27 Patient has been cleared for discharge by nahid 02/23/18 08:45 - Scribe Statement The provider has reviewed the documentation as recorded by the Stanley Brian Provider Scribe Attestation: All medical record entries made by the Scribe were at my direction and personally dictated by me. I have reviewed the chart and agree that the record accurately reflects my personal performance of the history, physical exam, medical decision making, and the department course for this patient. I have also personally directed, reviewed, and agree with the discharge instructions and disposition. Disposition/Present on Arrival - Present on Arrival Any Indicators Present on Arrival: No History of DVT/PE: No History of Uncontrolled Diabetes: No Urinary Catheter: No History of Decub. Ulcer: No History Surgical Site Infection Following: None - Disposition Have Diagnosis and Disposition been Completed?: Yes Diagnosis: Depression Disposition: HOME/ ROUTINE Disposition Time: 08:45 Patient Problems: Current Active Problems Problem Status Onset Depression Acute Condition: STABLE Discharge Instructions (ExitCare): Depression Additional Instructions: return to er with worsening symptoms or concerns. Referrals: Sheela Puga MD [Primary Care Provider] - Follow up with primary Forms: [employer] (Australian)
[2018-02-23 08:59] VITALS: BP 129/72; PULSE 72; O2SAT 98
--- NOTE | 2018-02-23 21:38 | CARD ---
APPROVED REPORT EKG Measurement Heart [id number] <Conclusion> Normal sinus rhythm Possible Left atrial enlargement Incomplete right bundle branch block Borderline ECG
== END 2018-02-23 08:50 | disposition home or self-care (01) ==
LOC: ED 04:41
DX: F32.9 Major depressive disorder, single episode, unspecified (principal); F17.210 Nicotine dependence, cigarettes, uncomplicated

== ENCOUNTER 2018-03-12 22:40 | Inpatient (IN) | payer MEDICAID, OTHER ==
[2018-03-12 22:41] VITALS: BMI 26.6
[2018-03-12] MEDS ORDERED: Multivitamin (MVI) 10 ML, Thiamine 100 MG, Folic Acid 1 MG in Dextrose 5% In Water 1,00... IV ONE (23:22)
[2018-03-12] MEDS ORDERED: Famotidine 20mg/50ml 20 MG/50 ML BAG IVPB STA (23:25)
--- NOTE | 2018-03-12 23:31 | ED PDOC ---
Arrival/HPI - General Chief Complaint: Anxiety Time Seen by Provider: 03/12/18 23:09 Historian: Patient - History of Present Illness Narrative History of Present Illness (Text): 03/12/18 23:23 27 year old male, whose past medical history includes alcohol withdrawal/ alcohol ketoacidosis/appendicitis, and psych history including alcohol abuse/ depression/suicidal behavior, with no food or drug allergies, presents to the emergency department complaining of chest pain associated with vomiting and tremors that began around 12PM today. He states he has been continuously drinking for the past week, but suddenly stopped drinking today with last drink around 12pm today. Patient average drinks a quart of liquor each day. Patient has a history of alcohol withdrawal. Patient reports abdominal pain and anxiety , but denies any fever, chills, shortness of breath, nausea, diarrhea, urinary symptoms, back pain, neck pain, headache, dizziness, SI/HI, auditory/visual hallucinations, or any other complaints. PMD: Dr. Puga Time/Duration: Other (12PM) Symptom Onset: Gradual Activities at Onset: Light Context: Home Past Medical History - Provider Review Nursing Documentation Reviewed: Yes - Past History Past History: No Previous (alcohol dependent) - Infectious Disease Hx of Infectious Diseases: None - Tetanus Immunization Tetanus Immunization: Unknown - Past Medical History Past Medical History: No Previous - Cardiac Hx Cardiac Disorders: No - Pulmonary Hx Respiratory Disorders: No - Neurological Hx Neurological Disorder: No - HEENT Hx HEENT Disorder: No - Renal Hx Renal Disorder: No - Endocrine/Metabolic Hx Endocrine Disorders: No - Hematological/Oncological Hx Blood Disorders: No - Integumentary Hx Dermatological Disorder: No - Musculoskeletal/Rheumatological Hx Musculoskeletal Disorders: Yes Hx Fractures: Yes - Gastrointestinal Hx Gastrointestinal Disorders: No - Genitourinary/Gynecological Hx Genitourinary Disorders: No - Psychiatric Hx Psychophysiologic Disorder: Yes Hx Anxiety: Yes Hx Depression: Yes Hx Panic Disorder: Yes Hx Substance Use: Yes - Past Surgical History Past Surgical History: No Previous - Surgical History Hx Appendectomy: Yes Hx Musculoskeletal Surgery: Yes Hx Orthopedic Surgery: Yes - Anesthesia Hx Anesthesia: Yes Hx Anesthesia Reactions: No Hx Malignant Hyperthermia: No - Suicidal Assessment Feels Threatened In Home Enviroment: No Family/Social History - Physician Review Nursing Documentation Reviewed: Yes Family/Social History: No Known Family HX Smoking Status: Heavy Smoker > 10 Cigarettes Daily Hx Alcohol Use: Yes Hx Substance Use: Yes Substance used: marijuana Hx Substance Use Treatment: No Allergies/Home Meds Allergies/Adverse Reactions: Allergies No Known Allergies Allergy (Verified 02/20/18 23:11) Home Medications: Home Meds Medication Instructions Recorded Confirmed Ibuprofen 800 mg PO Q6H PRN 02/21/18 02/22/18 Multivitamins [Hexavitamin] 1 tab PO DAILY 02/21/18 02/22/18 Naltrexone [Revia] 50 mg PO DAILY 02/21/18 02/22/18 Propranolol [Inderal] 10 mg PO BID 02/21/18 02/22/18 hydrOXYzine Pamoate [Vistaril] 50 mg PO BID PRN 02/21/18 02/22/18 Review of Systems - Physician Review All systems were reviewed & negative as marked: Yes - Review of Systems Constitutional: absent: Fatigue, Fevers, Other (Chills) Respiratory: absent: SOB Cardiovascular: Chest Pain Gastrointestinal: Abdominal Pain, Vomiting. absent: Diarrhea, Nausea Genitourinary Male: absent: Dysuria, Frequency, Hematuria Musculoskeletal: absent: Back Pain, Neck Pain Neurological: Other (Tremors). absent: Headache, Dizziness Psychiatric: Anxiety. absent: Suicidal Ideation (/HI), Other (auditory/visual hallucinations) Physical Exam Vital Signs Reviewed: Yes Vital Signs Temp Pulse Resp BP Pulse Ox 03/12/18 23:16 98.2 F 98 H 18 132/72 98 Temperature: Afebrile Blood Pressure: Normal Pulse: Regular Respiratory Rate: Normal Appearance: Positive for: Well-Appearing, Non-Toxic, Comfortable Pain Distress: None Mental Status: Positive for: Alert and Oriented X 3 - Systems Exam Head: Present: Atraumatic, Normocephalic Pupils: Present: PERRL Extroacular Muscles: Present: EOMI Conjunctiva: Present: Normal Mouth: Present: Moist Mucous Membranes Neck: Present: Normal Range of Motion Respiratory/Chest: Present: Clear to Auscultation, Good Air Exchange. No: Respiratory Distress, Accessory Muscle Use Cardiovascular: Present: Regular Rate and Rhythm, Normal S1, S2. No: Murmurs Abdomen: No: Tenderness, Distention, Peritoneal Signs Back: Present: Normal Inspection Upper Extremity: Present: Normal Inspection. No: Cyanosis, Edema Lower Extremity: Present: Normal Inspection. No: Edema Neurological: Present: GCS=15, Speech Normal, Motor Func Grossly Intact, Gait Normal, Memory Normal, Other (+fine hand tremors) Skin: Present: Warm, Dry, Normal Color. No: Rashes Psychiatric: Present: Alert, Oriented x 3, Normal Insight, Normal Concentration , Anxious Medical Decision Making ED Course and Treatment: 03/12/18 23:15 Impression: 27 year old male presents complaining of chest pain associated with vomiting and tremors that began at 12Pm today. Patient stopped drinking today after continuously drinking for the past week. Pt past medical history includes alcohol withdrawal syndrome. Plan: -- EKG -- Labs -- Chest X-ray -- Ativan, IV Fluids, Pepcid, Zofran Inj -- Urinalysis -- Reassess and disposition Prior Visits: Notes and results from previous visits were reviewed. Patient was last seen in the emergency department on 02/23/18 presents complaining of of anxiety, chest pain, and depression. Patient admits to drinking. Patient was discharged. 03/13/18 00:34 -EKG: NSR @ 96 BPM, no ST elevation or depression, no T wave inversion, RBBB -Chest xray: no active disease -Labs show no acute findings -Alcohol is 147 after last drink about 12 hours ago -Troponin is negative -Pt. feels moderately comfortable but still little tremors, will admit observation -I discussed the case with Dr. Salmeron and medical policy specialist Dr. Bettencourt, discussed about the case/labs/radiology result, will continue the care and agreed on the admission. -I discussed the case with Dr. Muro, he will put in the admission order. - Lab Interpretations Lab Results: 03/12/18 23:30 03/12/18 23:30 Lab Results 03/12/18 23:30: Urine Opiates Screen Negative, Urine Methadone Screen Negative, Ur Barbiturates Screen Negative, Ur Phencyclidine Scrn Negative, Ur Amphetamines Screen Negative, U Benzodiazepines Scrn Positive, U Oth Cocaine Metabols Negative, U Cannabinoids Screen Positive H 03/12/18 23:30: Urine Color Yellow, Urine Appearance Clear, Urine pH 8.0, Ur Specific [place] 1.015, Urine Protein Trace H, Urine Glucose (UA) Negative, Urine Ketones Negative, Urine Blood Negative, Urine Nitrate Negative, Urine Bilirubin Negative, Urine Urobilinogen 0.2, Ur Leukocyte Esterase Negative, Urine RBC 0 - 2, Urine WBC 0 - 2, Ur Epithelial Cells 0 - 2 03/12/18 23:30: WBC 10.4, RBC 4.49, Hgb 14.7, Hct 41.3 L, MCV 92.0 D, MCH 32.7 , MCHC 35.6, RDW 12.3, Plt Count 239, MPV 9.8, Gran % 58.0, Lymph % (Auto) 36.7 H, [place] % (Auto) 3.3, Eos % (Auto) 1.6, Baso % (Auto) 0.4, Gran # 6.01, Lymph # (Auto) 3.8 H, [place] # (Auto) 0.3, Eos # (Auto) 0.2, Baso # (Auto) 0.04 03/12/18 23:30: Alcohol, Quantitative 147 H 03/12/18 23:30: Sodium 143, Potassium 3.8, Chloride 106, Carbon Dioxide 19 L, Anion Gap 22 H, BUN 16, Creatinine 0.9, Est GFR ( Amer) > 60, Est GFR ( Non-Af Amer) > 60, Random Glucose 104, Calcium 9.3, Magnesium 2.1, Total Bilirubin 0.4, AST 52, ALT 80 H, Alkaline Phosphatase 74, Lactate Dehydrogenase 529, Total Creatine Kinase 280 H, CK-MB (CK-2) 1.5, CK-MB (CK-2) % Cancelled, Troponin I < 0.01, Total Protein 7.6, Albumin 4.8, Globulin 2.9, Albumin/ Globulin Ratio 1.7 I have reviewed the lab results: Yes - RAD Interpretation Radiology Orders: 03/12/18 23:22 CHEST PORTABLE [RAD] Stat no active disease [employer]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 Operator: Radiologist - EKG Interpretation EKG Interpretation (Text): 03/13/18 00:07 -EKG: NSR @ 96 BPM, no ST elevation or depression, no T wave inversion, RBBB Interpreted by ED Physician: Yes Type: 12 lead EKG - Medication Orders Current Medication Orders: Bupropion HCl (Wellbutrin) 100 mg PO DAILY [facility] Last Admin: 03/13/18 10:25 Dose: 100 mg Folic Acid (Folic Acid) 1 mg PO DAILY [facility] Last Admin: 03/13/18 10:25 Dose: 1 mg Hydroxyzine Pamoate (Vistaril) 50 mg PO BID PRN; Protocol PRN Reason: Anxiety Ketorolac Tromethamine (Toradol) 30 mg IVP Q6H PRN PRN Reason: Pain, severe (8-10) Lorazepam (Ativan) 2 mg IVP Q6H LAWSON PRN Reason: Protocol Last Admin: 03/13/18 13:04 Dose: 2 mg IVP Administration Document 03/13/18 13:04 RA (Rec: 03/13/18 13:05 [facility] Charges for Administration # of IVP Administrations 1 Behavioural Document 03/13/18 13:04 RA (Rec: 03/13/18 13:05 RA [facility] Maintenance Maintenance Dose Yes Re-Assess: Reassess Psych Meds Document 03/13/18 13:34 RA (Rec: 03/13/18 14:59 RA [id number]) Reassess Psych Med Ineffective-LIP notifed Lorazepam (Ativan) 2 mg IVP Q2H PRN; Protocol PRN Reason: Symptoms of alcohol withdrawl Last Admin: 03/13/18 02:26 Dose: 2 mg IVP Administration Document 03/13/18 02:26 [facility] (Rec: 03/13/18 02:27 [id number] Charges for Administration # of IVP Administrations 1 Behavioural Document 03/13/18 02:26 [facility] (Rec: 03/13/18 02:27 [id number]) Maintenance Maintenance Dose Yes Behavior Behavior for Medication: Anxiety Re-Assess: Reassess Psych Meds Document 03/13/18 02:56 [facility] (Rec: 03/13/18 06:24 [facility]-[id number]) Reassess Psych Med Effective Mirtazapine (Remeron) 15 mg PO HS [facility] Multivitamins/Minerals (Therapeutic-M Tab) 1 tab PO DAILY [facility] Last Admin: 03/13/18 10:25 Dose: 1 tab Ondansetron HCl (Zofran Inj) 4 mg IVP Q6H PRN PRN Reason: Nausea/Vomiting Pantoprazole Sodium (Protonix Ec Tab) 40 mg PO 0600 [facility] Last Admin: 03/13/18 06:24 Dose: 40 mg Thiamine HCl (Vitamin B1 Tab) 100 mg PO DAILY [facility] Last Admin: 03/13/18 10:25 Dose: 100 mg Discontinued Medications Multivitamins/Vitamin C 10 ml/Thiamine HCl 100 mg/ Folic Acid 1 mg/ Dextrose 1, 011.2 mls @ 1,000 mls/hr IV .Q1H1M ONE Stop: 03/13/18 00:22 Last Admin: 03/12/18 23:40 Dose: 1,000 mls/hr eMAR Start Stop Document 03/12/18 23:40 IT (Rec: 03/12/18 23:40 IT [id number]) Intravenous Solution Start Date 03/12/18 Start Time 23:40 End Date 03/13/18 End time 00:40 Total Infusion Time 60 Famotidine (Pepcid 20mg/50ml Premix) 20 mg in 50 mls @ 100 mls/hr IVPB STAT STA Stop: 03/12/18 23:54 Last Admin: 03/12/18 23:34 Dose: 100 mls/hr eMAR Start Stop Document 03/12/18 23:34 IT (Rec: 03/12/18 23:34 IT [id number]) Intravenous Solution Start Date 03/12/18 Start Time 23:34 End Date 03/12/18 Multivitamins/Vitamin C 10 ml/Thiamine HCl 100 mg/ Folic Acid 1 mg/ Sodium Chloride 1,011.2 mls @ 100 mls/hr IV .Q10H7M ONE Stop: 03/13/18 12:06 Last Admin: 03/13/18 04:00 Dose: 100 mls/hr eMAR Start Stop Document 03/13/18 04:00 [facility] (Rec: 03/13/18 06:25 [id number]) Intravenous Solution Start Date 03/13/18 Start Time 04:00 Ketorolac Tromethamine (Toradol) 30 mg IVP STAT STA Stop: 03/13/18 01:31 Lorazepam (Ativan) 2 mg IVP ONCE ONE PRN Reason: Protocol Stop: 03/12/18 23:23 Last Admin: 03/12/18 23:33 Dose: 2 mg IVP Administration Document 03/12/18 23:33 IT (Rec: 03/12/18 23:33 IT [id number]) Charges for Administration # of IVP Administrations 1 Re-Assess: Reassess Psych Meds Document 03/13/18 00:03 RA (Rec: 03/13/18 11:18 RA [id number]) Reassess Psych Med Effective Ondansetron HCl (Zofran Inj) 4 mg IVP STAT STA Stop: 03/12/18 23:23 Last Admin: 03/12/18 23:33 Dose: 4 mg IVP Administration Document 03/12/18 23:33 IT (Rec: 03/12/18 23:33 IT [id number]) Charges for Administration # of IVP Administrations 1 Potassium Chloride (K-Dur 20 Meq Er Tab) 40 meq PO ONCE ONE Stop: 03/13/18 08:52 Last Admin: 03/13/18 10:26 Dose: 40 meq - PA / INSTRUCTIONAL RESOURCE TEACHER / Resident Statement MD/DO has reviewed & agrees with the documentation as recorded. - Scribe Statement The provider has reviewed the documentation as recorded by the Stanley Ludwig Provider Scribe Attestation: All medical record entries made by the Ladanibmigdalia were at my direction and personally dictated by me. I have reviewed the chart and agree that the record accurately reflects my personal performance of the history, physical exam, medical decision making, and the department course for this patient. I have also personally directed, reviewed, and agree with the discharge instructions and disposition. Disposition/Present on Arrival - Present on Arrival Any Indicators Present on Arrival: No History of DVT/PE: No History of Uncontrolled Diabetes: No Urinary Catheter: No History of Decub. Ulcer: No History Surgical Site Infection Following: None - Disposition Have Diagnosis and Disposition been Completed?: Yes Diagnosis: Alcohol withdrawal, Alcohol abuse, Alcohol intoxication Disposition: HOSPITALIZED Disposition Time: 00:08 Patient Plan: Observation, Telemetry Patient Problems: Current Active Problems Problem Status Onset Alcohol intoxication Acute Alcohol withdrawal Acute Alcohol abuse Chronic Condition: STABLE
[2018-03-12 23:40] LABS: BASO # 0.04 K/mm3 (0.0-2.0); BASO % 0.4 % (0.0-3.0); EOS # 0.2 (0.0-0.7); EOS % 1.6 % (1.5-5.0); GRAN # 6.01 (1.4-6.5); HEMOGLOBIN 14.7 g/dL (14.0-18.0); LYMPH # 3.8 (1.2-3.4); LYMPH % 36.7 % (22.0-35.0); MEAN CORPUSCULAR HEMOGLOBIN 32.7 pg (25.0-35.0); MEAN CORPUSCULAR HGB CONC 35.6 g/dl (31.0-37.0); MEAN PLATELET VOLUME 9.8 fl (7.0-11.0); MONO # 0.3 (0.1-0.6); MONO % 3.3 % (1.0-6.0); RBC 4.49 10^6/uL (3.5-6.1); RED CELL DISTRIBUTION WIDTH 12.3 % (11.5-14.5); WHITE BLOOD COUNT 10.4 10^3/ul (4.5-11.0)
[2018-03-12 23:43] LABS: URINE BILIRUBIN NEGATIVE (NEGATIVE); URINE BLOOD NEGATIVE (NEGATIVE); URINE GLUCOSE (UA) NEGATIVE (NEGATIVE); URINE LEUKOCYTE ESTERASE NEGATIVE Leu/uL (NEGATIVE); URINE PROTEIN TRACE mg/dL (<30 mg/dL); URINE UROBILINOGEN 0.2 E.U./dL (<1 E.U./dL)
[2018-03-12 23:47] LABS: URINE APPEARANCE CLEAR (CLEAR); URINE COLOR YELLOW (YELLOW)
[2018-03-13 00:01] LABS: TROPONIN I < 0.01 ng/mL
[2018-03-13 00:15] LABS: ALB/GLOB RATIO 1.7 (1.1-1.8); ALBUMIN 4.8 g/dL (3.0-4.8); ALT/SGPT 80 U/L (7-56); AST/SGOT 52 U/L (17-59); BARBITURATES, UR NEGATIVE (NEGATIVE); BENZODIAZEPINES, UR POSITIVE (NEGATIVE); BLOOD UREA NITROGEN 16 mg/dL (7-21); CALCIUM 9.3 mg/dL (8.4-10.5); GFR AFRICAN-AMERICAN > 60; GFR NON-AFRICAN AMERICAN > 60; OPIATES, UR NEGATIVE (NEGATIVE); PHENCYCLIDINE, UR NEGATIVE (NEGATIVE)
[2018-03-13 00:16] LABS: URINE EPITHELIAL CELLS 0 - 2 /hpf (0-5); URINE RBC 0 - 2 /hpf (0-2); URINE WBC 0 - 2 /hpf (0-6)
[2018-03-13 00:43] LABS: CK-MB 1.5 ng/mL (0.0-3.6)
--- NOTE | 2018-03-13 01:39 | CP.PCM.HP ---
"<Yves Bettencourt - Last Filed: 03/13/18 03:59> History of Present Illness - History of Present Illness History of Present Illness: This patient is a 27 year old male with a PMHx of Depression with suicidal ideation, anxiety, Polysubstance Abuse (Alcohol, heroin, cocaine) and Seizure 2/ 2 to alcohol withdrawal who presents to [facility] because he feels like he is about to undergo withdrawal symptoms. Patient states that yesterday late afternoon he felt like his whole body was paralyzed for about 2-3 minutes, then he states he began to have numbness in tingling in his distal upper extremities bilaterally. He started feeling SOB and 7/10 non-radiating chest pressure with palpitations. His last drink was about 12:00PM on Mar 12 2019. Patient also admits to heavy coccaine usage 2 days ago. ROS POSITIVE: SOB, Chest Pressure, Palpitations, numbness in tingling in distal upper extremities, nausea, 1 episode on non-bloody vomiting, diarrhea, dysuria, increased urinary frequency, Depression with intermittent suicidal ideation w/o plan, Anxiety, Audio hallucinations, tactile hallucinations, generalized weakness, tremor, Hiccups NEGATIVE: Headache, Fever, Chills, abdominal pain, constipation, hematuria, blood in stool, Homicidal ideation, focal muscle weakness, ROS: 12 point ROS obtained and negative except as per HPI PMH: Polysubstance abuse (alcohol, heroin, cocaine) Seizure 2/2 to EtOH withdrawal. PSH: Right upper extremity surgical repair s/p accident, appendectomy, right ankle surgery Social History: 15 pack year history, alcohol abuse, marijuana, cocaine and methamphetamine use. Hospitalization: Multiple in past month for alcohol Intoxication/Withdrawal FMH: DM ALL: NKDA Medication: Reviewed. States he stopped all his medications 2 weeks ago except for anxiety medication which he forgot the name of. Present on Admission - Present on Admission Any Indicators Present on Admission: No Review of Systems - Review of Systems All systems: reviewed and no additional remarkable complaints except (As per HPI ) Review of Systems: As per HPI Past Patient History - Infectious Disease Hx of Infectious Diseases: None - Tetanus Immunizations Tetanus Immunization: Unknown - Past Social History Smoking Status: Heavy Smoker > 10 Cigarettes Daily - CARDIAC Hx Cardiac Disorders: No - PULMONARY Hx Respiratory Disorders: No - NEUROLOGICAL Hx Neurological Disorder: No - HEENT Hx HEENT Problems: No - RENAL Hx Chronic Kidney Disease: No - ENDOCRINE/METABOLIC Hx Endocrine Disorders: No - HEMATOLOGICAL/ONCOLOGICAL Hx Blood Disorders: No - INTEGUMENTARY Hx Dermatological Problems: No - MUSCULOSKELETAL/RHEUMATOLOGICAL Hx Musculoskeletal Disorders: Yes Hx Fractures: Yes - GASTROINTESTINAL Hx Gastrointestinal Disorders: No - GENITOURINARY/GYNECOLOGICAL Hx Genitourinary Disorders: No - PSYCHIATRIC Hx Psychophysiologic Disorder: Yes Hx Anxiety: Yes Hx Depression: Yes Hx Panic Symptoms: Yes Hx Substance Use: Yes - SURGICAL HISTORY Hx Appendectomy: Yes Hx Musculoskeletal Surgery: Yes Hx Orthopedic Surgery: Yes - ANESTHESIA Hx Anesthesia: Yes Hx Anesthesia Reactions: No Hx Malignant Hyperthermia: No Meds Allergies/Adverse Reactions: Allergies Allergy/AdvReac Type Severity Reaction Status Date / Time No Known Allergies Allergy Verified 02/20/18 23:11 Physical Exam - Constitutional Appears: Non-toxic, No Acute Distress - Head Exam Head Exam: ATRAUMATIC, NORMAL INSPECTION, NORMOCEPHALIC - Eye Exam Eye Exam: EOMI, Normal appearance, PERRL Pupil Exam: absent: Miosis, Mydriatic - ENT Exam ENT Exam: Mucous Membranes Moist - Respiratory Exam Respiratory Exam: Clear to Auscultation Bilateral, NORMAL BREATHING PATTERN. absent: Accessory Muscle Use, Decreased Breath Sounds, Rales, Rhonchi, Wheezes, Respiratory Distress - Cardiovascular Exam Cardiovascular Exam: RRR, +S1, +S2 - GI/Abdominal Exam GI & Abdominal Exam: Soft. absent: Tenderness - Extremities Exam Extremities exam: Positive for: normal capillary refill, normal inspection, pedal pulses present. Negative for: pedal edema, tenderness - Neurological Exam Neurological exam: Alert, CN II-XII Intact, Oriented x3 Additional comments: Negative Heel to [place] test Negative Finger to Nose test 5/5 muscle strength in Upper and Lower extremities B/L Mild Tremor. No Sensory Deficit. - Psychiatric Exam Psychiatric exam: Anxious, Depressed, Normal Affect, Suicidal Ideation - Skin Skin Exam: Dry, Intact, Normal Color, Warm Results - Vital Signs Recent Vital Signs: Last Vital Signs Temp 98.2 F 03/12/18 23:16 Pulse 98 H 03/12/18 23:16 Resp 18 03/12/18 23:16 BP 132/72 03/12/18 23:16 Pulse Ox 98 03/12/18 23:16 - Labs Result Diagrams: 03/12/18 23:30 03/12/18 23:30 Assessment & Plan - Assessment and Plan (Free Text) Assessment: 27 year old male with a PMHx of Depression with suicidal ideation, anxiety, Polysubstance Abuse (Alcohol, heroin, cocaine) and Seizure 2/2 to alcohol withdrawal, admitted for evaluation and treatment of EtOH withdrawal. Plan: ETOH Abuse/Withdrawal. EtOH Level 147 on Admission Bannana Bag Ativan 2 Q6H LAWSON & Q2H PRN Thiamine/Folate/Multivitamins CIWA | Seizure precuations Depression w/ SI/Anxiety/ Audio & Tactile Hallucinations Restart Home Psych Meds Vistaril, Remeron, Wellbutrin Psych Consult 1:1 Symptoms of numbness/Tingling and 2-3 min Episode of paralyzation CT head w/o Contrast Dysuria/Urinary Frequency UA shows no leuk Es or Nitrates GC/Chlamydia HIV 1 & 2 antibody Chest Pain likely 2/2 to anxiety vs withdrawal Troponin Negative in ED, EKG shows no ST or T wave changes Toradol for pain Proph Protonix SCD's Full Liquid Diet, Advance as tolerated. Patient discussed with Dr. Faviola Bettencourt, PGY-1 <Peyman Salmeron - Last Filed: 03/13/18 05:42> Results - Vital Signs Recent Vital Signs: Last Vital Signs Temp 98 F 03/13/18 02:14 Pulse 86 03/13/18 02:14 Resp 16 03/13/18 02:14 BP 113/62 03/13/18 02:14 Pulse Ox 98 03/13/18 02:10 - Labs Result Diagrams: 03/12/18 23:30 03/12/18 23:30 Attending/Attestation - Attestation I have personally seen and examined this patient.: Yes I have fully participated in the care of the patient.: Yes I have reviewed all pertinent clinical information: Yes Notes (Text): 03/13/18 05:41 Patient was seen when he was in bed # 8 in the ER. Medical record was reviewed. Agree with history, physical examination , assessment and plan."
[2018-03-13] MEDS ORDERED: Multivitamin (MVI) 10 ML, Thiamine 100 MG, Folic Acid 1 MG in Sodium Chloride 0.9% 1,00... IV ONE (02:00)
[2018-03-13] MEDS: Pantoprazole 40 mg EC Tab PO SCH (06:24)
[2018-03-13 07:53] LABS: BASO # 0.07 K/mm3 (0.0-2.0); BASO % 0.8 % (0.0-3.0); EOS # 0.3 (0.0-0.7); EOS % 3.8 % (1.5-5.0); GRAN # 3.96 (1.4-6.5); GRAN % 45.2 % (50.0-68.0); MEAN CELL VOLUME 93.8 fl (80.0-105.0); MEAN CORPUSCULAR HEMOGLOBIN 32.1 pg (25.0-35.0); MEAN CORPUSCULAR HGB CONC 34.2 g/dl (31.0-37.0); MONO # 0.4 (0.1-0.6); MONO % 4.2 % (1.0-6.0); RBC 4.05 10^6/uL (3.5-6.1); RED CELL DISTRIBUTION WIDTH 12.3 % (11.5-14.5); WHITE BLOOD COUNT 8.8 10^3/ul (4.5-11.0)
[2018-03-13 07:58] LABS: ALB/GLOB RATIO 1.6 (1.1-1.8); ALBUMIN 4.1 g/dL (3.0-4.8); ALT/SGPT 72 U/L (7-56); AST/SGOT 45 U/L (17-59); BLOOD UREA NITROGEN 16 mg/dL (7-21); CALCIUM 8.7 mg/dL (8.4-10.5); GFR AFRICAN-AMERICAN > 60; GFR NON-AFRICAN AMERICAN > 60
[2018-03-13 08:10] LABS: TROPONIN I < 0.01 ng/mL
[2018-03-13 08:22] LABS: FREE T4 0.6 ng/dL (0.78-2.19)
[2018-03-13] MEDS ORDERED: Potassium Chloride 20 mEq ER Tab PO ONE (08:51)
--- NOTE | 2018-03-13 08:58 | CT ---
PROCEDURE: CT HEAD WITHOUT CONTRAST. HISTORY: Symptoms of paralyzation for 2-3 miniutes, Numbnes COMPARISON: None available. TECHNIQUE: Axial computed tomography images were obtained through the head/brain without intravenous contrast. Radiation dose: Total exam DLP = 932 mGy-cm. This CT exam was performed using one or more of the following dose reduction techniques: Automated exposure control, adjustment of the mA and/or kV according to patient size, and/or use of iterative reconstruction technique. FINDINGS: HEMORRHAGE: No intracranial hemorrhage. BRAIN: No mass effect or edema. No atrophy or chronic microvascular ischemic changes. VENTRICLES: Unremarkable. No hydrocephalus. CALVARIUM: Unremarkable. PARANASAL SINUSES: Unremarkable as visualized. No significant inflammatory changes. MASTOID AIR CELLS: Unremarkable as visualized. No inflammatory changes. OTHER FINDINGS: None. IMPRESSION: No acute findings
--- NOTE | 2018-03-13 10:16 | RAD ---
HISTORY: medical clearance COMPARISON: 02/23/2018 FINDINGS: LUNGS: No active pulmonary disease. PLEURA: No significant pleural effusion identified, no pneumothorax apparent. CARDIOVASCULAR: Normal. OSSEOUS STRUCTURES: No significant abnormalities. VISUALIZED UPPER ABDOMEN: Normal. OTHER FINDINGS: None. IMPRESSION: No active disease.
[2018-03-13] MEDS: Multivitamin With Minerals Tab PO SCH (10:25)
--- NOTE | 2018-03-13 17:55 | CARD ---
APPROVED REPORT EKG Measurement Heart [id number] <Conclusion> Normal sinus rhythm Incomplete right bundle branch block Borderline ECG
[2018-03-14] MEDS: Pantoprazole 40 mg EC Tab PO SCH (05:37)
[2018-03-14 07:20] LABS: BASO # 0.05 K/mm3 (0.0-2.0); BASO % 0.6 % (0.0-3.0); EOS # 0.6 (0.0-0.7); EOS % 7.1 % (1.5-5.0); GRAN # 4.26 (1.4-6.5); GRAN % 53.1 % (50.0-68.0); HEMOGLOBIN 13.7 g/dL (14.0-18.0); LYMPH # 2.8 (1.2-3.4); LYMPH % 34.7 % (22.0-35.0); MEAN CORPUSCULAR HEMOGLOBIN 32.5 pg (25.0-35.0); MEAN CORPUSCULAR HGB CONC 34.2 g/dl (31.0-37.0); MEAN PLATELET VOLUME 10.4 fl (7.0-11.0); MONO # 0.4 (0.1-0.6); MONO % 4.5 % (1.0-6.0); RBC 4.22 10^6/uL (3.5-6.1); RED CELL DISTRIBUTION WIDTH 12.3 % (11.5-14.5)
--- NOTE | 2018-03-14 07:29 | CP.PCM.PN ---
<PadillaMartha - Last Filed: 03/14/18 09:19> Subjective - Date & Time of Evaluation Date of Evaluation: 03/14/18 Time of Evaluation: 09:14 - Subjective Subjective: PGY2 Medicine note for Dr. Wick Patient seen and examined at bedside. Nursing reported no acute events overnight. Patient stated he did not sleep well and continues to experience some auditory/visual hallucinations. He feels like he is having conversations with people that he knows aren't there [boyfriend, mother etc] and yesterday he thought he saw his friend at his bedside. Patient is aware that when he is having these conversations they are not real. He had one episode of nausea and requested zofran and complained of a slight headache. He was hungry on liquid diet and ordered himself a pizza. He denied acute complaints of dizziness, fever , chills, chest pain, SOB, cough, abd pain, vomiting, bowel/bladder complaints, pain/swelling in his legs b/l. Patient continues to feel anxious and states he knows what he is doing with drugs/alcohol is bad for himself. Patient was counseled at great lengths regarding the importance of drug/alcohol cessation and tobacco cessation. He stated he recognizes he has a problem especially since he has to sneak and drink EtOH and has a good support system in his mother and boyfriend. Patient denied any suicidal/homicidal ideations. Objective - Vital Signs/Intake and Output Vital Signs (last 24 hours): Temp Pulse Resp BP Pulse Ox 98 F 45 L 20 132/94 H 97 03/13/18 16:00 03/14/18 06:00 03/13/18 16:00 03/13/18 16:00 03/13/18 16:00 Intake and Output: 03/14/18 03/14/18 06:59 18:59 Intake Total 960 Balance 960 - Medications Medications: Current Medications Folic Acid (Folic Acid) 1 mg PO DAILY COUNT INCLUDES [facility] Last Admin: 03/13/18 10:25 Dose: 1 mg Hydroxyzine Pamoate (Vistaril) 50 mg PO BID PRN; Protocol PRN Reason: Anxiety Ketorolac Tromethamine (Toradol) 30 mg IVP Q6H PRN PRN Reason: Pain, severe (8-10) Lorazepam (Ativan) 2 mg IVP Q6H ROB PRN Reason: Protocol Last Admin: 03/14/18 05:37 Dose: 2 mg Lorazepam (Ativan) 2 mg IVP Q2H PRN; Protocol PRN Reason: Symptoms of alcohol withdrawl Last Admin: 03/13/18 15:09 Dose: 2 mg Mirtazapine (Remeron) 15 mg PO HS COUNT [facility]CLUDES [facility] Last Admin: 03/13/18 21:27 Dose: 15 mg Multivitamins/Minerals (Therapeutic-M Tab) 1 tab PO DAILY COUNT INCLUDES [facility] Last Admin: 03/13/18 10:25 Dose: 1 tab Nicotine (Nicoderm Cq) 1 patch TD DAILY COUNT [facility]CLUDES [facility] Last Admin: 03/13/18 18:01 Dose: 1 patch Ondansetron HCl (Zofran Inj) 4 mg IVP Q6H PRN PRN Reason: Nausea/Vomiting Last Admin: 03/13/18 20:33 Dose: 4 mg Pantoprazole Sodium (Protonix Ec Tab) 40 mg PO 0600 COUNT [facility]CLUDES [facility] Last Admin: 03/14/18 05:37 Dose: 40 mg Thiamine HCl (Vitamin B1 Tab) 100 mg PO DAILY COUNT [facility]CLUDES [facility] Last Admin: 03/13/18 10:25 Dose: 100 mg - Labs Labs: 03/13/18 07:00 03/13/18 07:00 - Constitutional Appears: Non-toxic, No Acute Distress - Head Exam Head Exam: ATRAUMATIC, NORMAL INSPECTION, NORMOCEPHALIC - Eye Exam Eye Exam: EOMI, Normal appearance, PERRL. absent: Conjunctival injection, Scleral icterus Pupil Exam: NORMAL ACCOMODATION - ENT Exam ENT Exam: Mucous Membranes Moist - Neck Exam Neck Exam: Full ROM, Normal Inspection - Respiratory Exam Respiratory Exam: Clear to Ausculation Bilateral, NORMAL BREATHING PATTERN. absent: Accessory Muscle Use, Rales, Rhonchi, Wheezes, Respiratory Distress - Cardiovascular Exam Cardiovascular Exam: REGULAR RHYTHM, RRR, +S1, +S2. absent: Murmur - GI/Abdominal Exam GI & Abdominal Exam: Soft, Normal Bowel Sounds. absent: Firm, Guarding, Rigid, Tenderness - Rectal Exam Rectal Exam: Deferred - Extremities Exam Extremities Exam: Normal Capillary Refill, Normal Inspection. absent: Calf Tenderness, Pedal Edema, Tenderness - Back Exam Back Exam: NORMAL INSPECTION. absent: rash noted - Neurological Exam Neurological Exam: Alert, Awake, CN II-XII Intact, Oriented x3 - Psychiatric Exam Psychiatric exam: Anxious. absent: Homicidal Ideation, Suicidal Ideation - Skin Skin Exam: Dry, Intact, Normal Color, Warm Assessment and Plan - Assessment and Plan (Free Text) Assessment: 27yo male PMHx depression with suicidal ideation, anxiety, Polysubstance Abuse ( Alcohol, heroin, cocaine) and Seizure 2/2 to alcohol withdrawal, admitted for evaluation and treatment of EtOH withdrawal. Plan: ETOH Abuse/Withdrawal. -EtOH Level 147 on Admission -CIWA 1 this morning -Ativan 2q6 rob and 2q2 prn -Thiamine/multivitamin/folate -Seizure precautions -Drug/Alc counseling Audio & Tactile Hallucinations -likely EtOH withdrawal related auditory/visual hallucinations -CIWA protocol -CT head on admission: negative -Ativan 2q6 rob and 2q2 prn -Seizure precautions Depression w/ anxiety -denied any suicidal/homicidal ideations -Restart Home Psych Meds Vistaril, Remeron, Wellbutrin -Psych on board stated no need for 1:1 at this time Dysuria/Urinary Frequency -resolved -UA shows no leuk Es or Nitrates -f/u GC/Chlamydia -HIV 1 & 2 antibody negative Chest Pain -resolved -likely 2/2 to anxiety vs withdrawal -negative trop x 3 and EKG with no acute ST changes noted -Toradol for pain Hx of tobacco abuse -nicotine patch -Tobacco cessation counseling GI ppx: PTX DVT ppx: SCDs and Heparin Diet: Regular Dispo: remote TELE- continue to monitor for alcohol withdrawal Discussed with Dr. Delano Causey PGY2 <Jeanine Wick - Last Filed: 03/14/18 13:18> Objective - Vital Signs/Intake and Output Vital Signs (last 24 hours): Temp Pulse Resp BP Pulse Ox 97.7 F 51 L 18 102/67 96 03/14/18 07:38 03/14/18 07:38 03/14/18 07:38 03/14/18 07:38 03/14/18 07:38 Intake and Output: 03/14/18 03/14/18 06:59 18:59 Intake Total 960 Balance 960 - Medications Medications: Current Medications Folic Acid (Folic Acid) 1 mg PO DAILY ROB Last Admin: 03/14/18 10:01 Dose: 1 mg Heparin Sodium (Porcine) (Heparin) 5,000 units SC Q12 ROB PRN Reason: Protocol Last Admin: 03/14/18 10:02 Dose: Not Given Hydroxyzine Pamoate (Vistaril) 50 mg PO BID PRN; Protocol PRN Reason: Anxiety Ketorolac Tromethamine (Toradol) 30 mg IVP Q6H PRN PRN Reason: Pain, severe (8-10) Lorazepam (Ativan) 2 mg IVP Q2H PRN; Protocol PRN Reason: Symptoms of alcohol withdrawl Last Admin: 03/13/18 15:09 Dose: 2 mg Lorazepam (Ativan) 2 mg IVP Q6H ROB PRN Reason: Protocol Last Admin: 03/14/18 10:01 Dose: Not Given Mirtazapine (Remeron) 15 mg PO HS COUNT INCLUDES [facility] Last Admin: 03/13/18 21:27 Dose: 15 mg Multivitamins/Minerals (Therapeutic-M Tab) 1 tab PO DAILY COUNT INCLUDES [facility] Last Admin: 03/14/18 10:01 Dose: 1 tab Nicotine (Nicoderm Cq) 1 patch TD DAILY COUNT INCLUDES [facility] Last Admin: 03/14/18 10:02 Dose: 1 patch Ondansetron HCl (Zofran Inj) 4 mg IVP Q6H PRN PRN Reason: Nausea/Vomiting Last Admin: 03/13/18 20:33 Dose: 4 mg Pantoprazole Sodium (Protonix Ec Tab) 40 mg PO 0600 COUNT INCLUDES [facility] Last Admin: 03/14/18 05:37 Dose: 40 mg Thiamine HCl (Vitamin B1 Tab) 100 mg PO DAILY COUNT INCLUDES [facility] Last Admin: 03/14/18 10:02 Dose: 100 mg - Labs Labs: 03/14/18 06:30 03/14/18 06:30 Attending/Attestation - Attestation I have personally seen and examined this patient.: Yes I have fully participated in the care of the patient.: Yes I have reviewed all pertinent clinical information, including history, physical exam and plan: Yes Notes (Text): I have seen and examined the patient at bedside. Agree with the above note with the following additions/ exceptions: Briefly this is 27 year old male with history of depression, suicidal ideation, anxiety, polysubstance abuse (Alcohol , heroin, cocaine) and Seizure due to alcohol withdrawal, admitted for evaluation and treatment of EtOH withdrawal. He is going thru alcohol withdrawal. Will continue ativan, thiamine, MVI and folate. Continue psych meds. Counselling provided regarding poly substance abuse. Will consult social worker psychiatric. Upon discharge patient will follow up with Dr Sheela Puga. Dr Jeanine Wick
[2018-03-14 07:56] LABS: ALB/GLOB RATIO 1.5 (1.1-1.8); ALBUMIN 4.2 g/dL (3.0-4.8); ALT/SGPT 65 U/L (7-56); AST/SGOT 49 U/L (17-59); BLOOD UREA NITROGEN 17 mg/dL (7-21); CALCIUM 9.5 mg/dL (8.4-10.5); GFR AFRICAN-AMERICAN > 60; GFR NON-AFRICAN AMERICAN > 60
[2018-03-14] MEDS: Multivitamin With Minerals Tab PO SCH (10:01)
[2018-03-15] MEDS: Pantoprazole 40 mg EC Tab PO SCH (05:44)
[2018-03-15 06:46] LABS: BASO # 0.05 K/mm3 (0.0-2.0); BASO % 0.6 % (0.0-3.0); EOS # 0.6 (0.0-0.7); GRAN # 3.75 (1.4-6.5); GRAN % 45.2 % (50.0-68.0); HEMOGLOBIN 14.1 g/dL (14.0-18.0); LYMPH # 3.5 (1.2-3.4); MEAN CORPUSCULAR HEMOGLOBIN 32.3 pg (25.0-35.0); MEAN PLATELET VOLUME 10.4 fl (7.0-11.0); MONO # 0.4 (0.1-0.6); MONO % 5.2 % (1.0-6.0); RBC 4.37 10^6/uL (3.5-6.1); RED CELL DISTRIBUTION WIDTH 12.4 % (11.5-14.5); WHITE BLOOD COUNT 8.3 10^3/ul (4.5-11.0)
[2018-03-15 07:00] LABS: ALB/GLOB RATIO 1.5 (1.1-1.8); ALBUMIN 4.4 g/dL (3.0-4.8); ALT/SGPT 64 U/L (7-56); AST/SGOT 47 U/L (17-59); BLOOD UREA NITROGEN 19 mg/dL (7-21); CALCIUM 9.3 mg/dL (8.4-10.5); GFR AFRICAN-AMERICAN > 60; GFR NON-AFRICAN AMERICAN > 60
--- NOTE | 2018-03-15 08:49 | CON ---
DATE: 03/13/2018 HISTORY OF PRESENT ILLNESS: The patient is a 27-year-old male with a history of depression and polysubstance abuse and dependent including alcohol, heroin and cocaine and seizure secondary to alcohol withdrawal. He presents to [facility] concerned because he is going to go through alcohol withdrawal symptoms. Psychiatry was called because the patient has a psychiatric history of depression and suicidal thoughts. Much like, the requested psychiatric consultation of Dr. Orellana on 02/22/2018, the patient continues to deny any suicidal thoughts. I met with him at bedside and he is alert, oriented to month, year, location and circumstances. He reports that he has been drinking daily similar to prior presentations and abruptly stopped drinking and started to experience hallucinations of talking to people that "won't there". The patient reports remission of these hallucinations at this time. He does not appear to be responding to internal stimuli, though he is tired during my interview. His responses are consistent, coherent and relevant to questioning. He reports that he was seeing at [facility], last follow up was weeks ago. He was prescribed the same medications, he was discharged on including Remeron 15, Wellbutrin 100 when he was discharged from the psychiatric unit on 02/09/2018. The patient reports that he has not been compliant with these medications since his followup. He denies any recent drug use, but as noted above, he has been drinking regularly and is at increased risk for DT. However, he is not a psychiatric risk to himself due to ongoing suicidal thoughts though reports having been frustrated and depressed about his continued alcohol use. The patient denies any other major stressors at this time and he presents relatively stable without any acute psychiatric changes in thought process or notable thought disorder. PSYCHIATRIC HISTORY: As noted above, the patient's psychiatric history includes: 1. Prior hospitalization at [facility] from 02/04 to 02/09 . Elisabeth Mi MD
[2018-03-15] MEDS: Multivitamin With Minerals Tab PO SCH (09:31)
--- NOTE | 2018-03-15 12:57 | CP.PCM.PN ---
<Vidal Owen - Last Filed: 03/15/18 18:53> Subjective - Date & Time of Evaluation Date of Evaluation: 03/15/18 Time of Evaluation: 07:45 - Subjective Subjective: Internal Medicine Progress Note Patient seen and examined at bedside.y. On initial examination early in the AM patient denied any auditory or visual hallucinations; however, on AM rounds patient reports intermittent auditory hallucinations, experiencing hot and cold chills. He required 8 mg of Ativan in the interim. Nurse reports patient and family member want him to go to the inpatient psychiatric unit. Later in the day nurse paged micro paleontologist resident given patient requested more frequent ativan. Objective - Vital Signs/Intake and Output Vital Signs (last 24 hours): Temp Pulse Resp BP Pulse Ox 97.4 F L 48 L 19 116/72 97 03/15/18 07:42 03/15/18 07:42 03/15/18 07:42 03/15/18 07:42 03/15/18 07:42 Intake and Output: 03/15/18 03/15/18 06:59 18:59 Intake Total 840 Balance 840 - Medications Medications: Current Medications Folic Acid (Folic Acid) 1 mg PO DAILY [facility] Last Admin: 03/15/18 09:31 Dose: 1 mg Heparin Sodium (Porcine) (Heparin) 5,000 units SC Q12 ROB PRN Reason: Protocol Last Admin: 03/15/18 09:34 Dose: 5,000 units Hydroxyzine Pamoate (Vistaril) 50 mg PO BID PRN; Protocol PRN Reason: Anxiety Ketorolac Tromethamine (Toradol) 30 mg IVP Q6H PRN PRN Reason: Pain, severe (8-10) Last Admin: 03/15/18 10:02 Dose: 30 mg Lorazepam (Ativan) 1 mg IVP Q6H ROB PRN Reason: Protocol Stop: 03/15/18 20:00 Last Admin: 03/15/18 10:45 Dose: Not Given Lorazepam (Ativan) 1 mg IVP Q6H PRN; Protocol PRN Reason: Anxiety Lorazepam (Ativan) 0.5 mg IVP Q6H ROB PRN Reason: Protocol Mirtazapine (Remeron) 15 mg PO HS [facility] Last Admin: 03/14/18 21:59 Dose: 15 mg Multivitamins/Minerals (Therapeutic-M Tab) 1 tab PO DAILY [facility] Last Admin: 03/15/18 09:31 Dose: 1 tab Nicotine (Nicoderm Cq) 1 patch TD DAILY [facility] Last Admin: 03/15/18 09:31 Dose: 1 patch Ondansetron HCl (Zofran Inj) 4 mg IVP Q6H PRN PRN Reason: Nausea/Vomiting Last Admin: 03/13/18 20:33 Dose: 4 mg Pantoprazole Sodium (Protonix Ec Tab) 40 mg PO 0600 [facility] Last Admin: 03/15/18 05:44 Dose: 40 mg Thiamine HCl (Vitamin B1 Tab) 100 mg PO DAILY [facility] Last Admin: 03/15/18 09:31 Dose: 100 mg - Labs Labs: 03/15/18 05:30 03/15/18 05:30 - Constitutional Appears: Well, Non-toxic - Head Exam Head Exam: ATRAUMATIC, NORMOCEPHALIC - Eye Exam Eye Exam: EOMI, Normal appearance - ENT Exam ENT Exam: Mucous Membranes Moist, Normal Oropharynx - Neck Exam Neck Exam: Normal Inspection - Respiratory Exam Respiratory Exam: Clear to Ausculation Bilateral, NORMAL BREATHING PATTERN. absent: Accessory Muscle Use - Cardiovascular Exam Cardiovascular Exam: RRR, +S1, +S2 - GI/Abdominal Exam GI & Abdominal Exam: Soft, Normal Bowel Sounds - Extremities Exam Extremities Exam: Normal Inspection. absent: Calf Tenderness - Neurological Exam Neurological Exam: Alert, Awake, Oriented x3 - Psychiatric Exam Psychiatric exam: Normal Affect, Normal Mood - Skin Skin Exam: Dry, Intact, Normal Color, Warm Assessment and Plan - Assessment and Plan (Free Text) Assessment: 27yo male PMHx depression with suicidal ideation, anxiety, Polysubstance Abuse ( Alcohol, heroin, cocaine) and Seizure 2/2 to alcohol withdrawal, admitted for evaluation and treatment of EtOH withdrawal. Plan: ETOH Abuse/Withdrawal. -EtOH Level 147 on Admission -CIWA score -Ativan 1q6 rob and 1q4 prn -Thiamine/multivitamin/folate -Seizure precautions -Drug/Alc counseling Audio & Tactile Hallucinations -likely EtOH withdrawal related auditory/visual hallucinations -CIWA protocol -CT head on admission: negative -Ativan 1q6 rob and 1q6 prn -Seizure precautions Depression w/ anxiety -denied any suicidal/homicidal ideations -Restart Home Psych Meds Vistaril, Remeron, Wellbutrin -Psychiatry re-consulted given the patient is sending worrisome/concerning text messages to family and not acting completely normal. Patient and family request in-patient, voluntary psychiatric admission. Dysuria/Urinary Frequency -resolved -UA shows no leuk Es or Nitrates -f/u GC/Chlamydia -HIV 1 & 2 antibody negative Chest Pain -resolved -likely 2/2 to anxiety vs withdrawal -negative trop x 3 and EKG with no acute ST changes noted -Toradol for pain Hx of tobacco abuse -nicotine patch -Tobacco cessation counseling GI ppx: PTX DVT ppx: SCDs and Heparin Diet: Regular Dispo: remote TELE- continue to monitor for alcohol withdrawal Discussed with Dr. Delano Owen PGY1 <Jeanine Wick - Last Filed: 03/16/18 12:16> Objective - Vital Signs/Intake and Output Vital Signs (last 24 hours): Temp Pulse Resp BP Pulse Ox 97.8 F 63 18 118/59 L 98 03/16/18 07:47 03/16/18 10:00 03/16/18 07:47 03/16/18 07:47 03/16/18 07:47 Intake and Output: 03/16/18 03/16/18 06:59 18:59 Intake Total 1140 Balance 1140 - Medications Medications: Current Medications Folic Acid (Folic Acid) 1 mg PO DAILY [facility] Last Admin: 03/16/18 09:46 Dose: 1 mg Heparin Sodium (Porcine) (Heparin) 5,000 units SC Q12 ROB PRN Reason: Protocol Last Admin: 03/16/18 09:50 Dose: Not Given Hydroxyzine Pamoate (Vistaril) 50 mg PO BID PRN; Protocol PRN Reason: Anxiety Ketorolac Tromethamine (Toradol) 30 mg IVP Q6H PRN PRN Reason: Pain, severe (8-10) Last Admin: 03/16/18 08:25 Dose: 30 mg Lorazepam (Ativan) 0.5 mg IVP Q6H PRN; Protocol PRN Reason: Symptoms of alcohol withdrawl Mirtazapine (Remeron) 15 mg PO HS [facility] Last Admin: 03/15/18 21:55 Dose: 15 mg Multivitamins/Minerals (Therapeutic-M Tab) 1 tab PO DAILY [facility] Last Admin: 03/16/18 09:47 Dose: 1 tab Nicotine (Nicoderm Cq) 1 patch TD DAILY [facility] Last Admin: 03/16/18 09:47 Dose: 1 patch Ondansetron HCl (Zofran Inj) 4 mg IVP Q6H PRN PRN Reason: Nausea/Vomiting Last Admin: 03/13/18 20:33 Dose: 4 mg Pantoprazole Sodium (Protonix Ec Tab) 40 mg PO 0600 ROB Last Admin: 03/16/18 06:07 Dose: 40 mg Thiamine HCl (Vitamin B1 Tab) 100 mg PO DAILY [facility] Last Admin: 03/16/18 09:47 Dose: 100 mg - Labs Labs: 03/15/18 05:30 03/15/18 05:30 Attending/Attestation - Attestation I have personally seen and examined this patient.: Yes I have fully participated in the care of the patient.: Yes I have reviewed all pertinent clinical information, including history, physical exam and plan: Yes Notes (Text): I have seen and examined the patient at bedside. Agree with the above note with the following additions/ exceptions: Briefly this is 27 year old male with history of depression, suicidal ideation, anxiety, polysubstance abuse (Alcohol , heroin, cocaine) and Seizure due to alcohol withdrawal, admitted for evaluation and treatment of EtOH withdrawal. He appears better however patients mother was concerned as he was sending some worrisome text messages to his family. Psych re eval was requested. Patient is indecisive regarding psych admission. Will continue to taper ativan and continue thiamine, MVI and folate. Continue psych meds. Counselling provided regarding poly substance abuse. bushel worker consult appreciated. Upon discharge patient will follow up with Dr Sheela Puga. Dr Jeanine Wick
--- NOTE | 2018-03-15 18:29 | PN ---
DATE: 03/15/2018 SUBJECTIVE: In short, the patient is 27-year-old male with multiple medical issues including severe alcohol addiction and multiple medical complications due to chronic alcohol consumption and withdrawals. The patient also has history of mood disorder secondary to alcohol use disorder as well as polysubstance abuse and dependence. When the patient is under the influence or withdrawing, the patient has psychotic symptoms, inappropriate and agitated behavior. Once the patient cut himself so deeply that he needed to have sutures. The patient also has history of being admitted to [facility] involuntary commitment. This teletypewriter installer is very familiar with this patient from the multiple consultation liaison services as well as most recent psychiatric admission here in [facility] about a month ago. Dr. Mi saw this patient over the weekend sign off. Medical team reconsulted with this teletypewriter installer because the patient's mother expressed her highest concerns about patient's safety. This teletypewriter installer evaluated the patient. The patient presented to be alert, oriented, pleasant, superficially cooperative. The patient wanted to present better than he is. The patient reported that at the time of admission, he was feeling depressed as well as he was hallucinating. Denied any hallucinations right now. The patient reported that he is taking medication only for anxiety, but not for something else. The patient reported that he does not have any thoughts of killing himself or others. The patient reported that he is seeing psychiatrist at [facility] outpatient program. The patient said that his last appointment supposed to be on past Thursday and he needs to reschedule one now. As per medical team, the patient's mother reported that the patient is willing to sign into the Psychiatric Inpatient Unit, but the patient said that he is not willing to. The patient seems to be indecisive. VITAL SIGNS: Stable. Temperature 97.4, pulse is 60, blood pressure 116/72, respiration 19, oxygen saturation is 97. MEDICATIONS: Reviewed. Folic acid, heparin, Vistaril, Toradol, Ativan p.r.n. and scheduled, multivitamins, Nicoderm, Zofran, Protonix and vitamin B1. LABORATORY DATA: Reviewed, seems to be stable. Toxicology, cannabis positive and alcohol level was 147, benzodiazepines positive. Serology, HIV negative. MENTAL STATUS EXAMINATION: The patient appears to be alert, pleasant, superficially cooperative, intermittent eye contact. Mood described as "I feel fine right now." Affect was reactive. Mood congruent. Thought process seems to be coherent and goal directed. Thought content, the patient denied visual, auditory, tactile hallucinations for the moment of the interview, but as per medical team, the patient had hallucinations earlier today. The patient adamantly denied thoughts of harming himself or others, but the family is concerned about the patient's safety. Insight and judgment seems to be limited. Impulses are well controlled. IMPRESSION: Rule out substance-induced mood disorder, alcohol abuse and dependence, benzodiazepines abuse and dependence, cannabis abuse dependence. The patient has history of polysubstance abuse and dependence, alcohol withdrawal delirium, which is improving. PLAN: This teletypewriter installer offered the patient admission to the Psychiatric Inpatient Unit for further evaluation and stabilization. The patient declined that offer. Discussed with the medical team. We will observe the patient overnight. Hopefully, the patient will be improving. We will come back and evaluate the patient at the morning time. Treatment plan was discussed with Dr. Wick. Thank you very much for letting me participate in the care of your patient. Should you have any questions, give me a call back. Please monitor vital signs as well as give benzodiazepines if needed. Hollie Orellana MD
[2018-03-16 02:45] VITALS: RESP 18
[2018-03-16] MEDS: Pantoprazole 40 mg EC Tab PO SCH (06:07)
[2018-03-16 07:48] VITALS: BP 118/59; TEMP 97.8; O2SAT 98
[2018-03-16] MEDS: Multivitamin With Minerals Tab PO SCH (09:47)
--- NOTE | 2018-03-16 10:48 | CP.PCM.DIS ---
<Vidal Owen - Last Filed: 03/16/18 12:38> Provider - Provider Date of Admission: 03/14/18 17:23 Attending physician: Jeanine Wick MD Primary care physician: Sheela Puga MD Consults: Dr. Orellana and Dr. Mi (Psychiatry) Time Spent in preparation of Discharge (in minutes): 40 Diagnosis - Discharge Diagnosis (1) Alcohol withdrawal delirium Status: Acute (2) Suicidal ideation Status: Acute (3) Chest pain Status: Acute Hospital Course - Lab Results Lab Results: Most Recent Lab Values WBC 8.3 10^3/ul (4.5-11.0) 03/15/18 05:30 RBC 4.37 10^6/uL (3.5-6.1) 03/15/18 05:30 Hgb 14.1 g/dL (14.0-18.0) 03/15/18 05:30 Hct 41.5 % (42.0-52.0) L 03/15/18 05:30 MCV 95.0 fl (80.0-105.0) 03/15/18 05:30 MCH 32.3 pg (25.0-35.0) 03/15/18 05:30 MCHC 34.0 g/dl (31.0-37.0) 03/15/18 05:30 RDW 12.4 % (11.5-14.5) 03/15/18 05:30 Plt Count 219 10^3/uL (120.0-450.0) 03/15/18 05:30 MPV 10.4 fl (7.0-11.0) 03/15/18 05:30 Gran % 45.2 % (50.0-68.0) L 03/15/18 05:30 Lymph % (Auto) 42.0 % (22.0-35.0) H 03/15/18 05:30 [place] % (Auto) 5.2 % (1.0-6.0) 03/15/18 05:30 Eos % (Auto) 7.0 % (1.5-5.0) H 03/15/18 05:30 Baso % (Auto) 0.6 % (0.0-3.0) 03/15/18 05:30 Gran # 3.75 (1.4-6.5) 03/15/18 05:30 Lymph # (Auto) 3.5 (1.2-3.4) H 03/15/18 05:30 [place] # (Auto) 0.4 (0.1-0.6) 03/15/18 05:30 Eos # (Auto) 0.6 (0.0-0.7) 03/15/18 05:30 Baso # (Auto) 0.05 K/mm3 (0.0-2.0) 03/15/18 05:30 Sodium 145 mmol/L (132-148) 03/15/18 05:30 Potassium 4.1 mmol/L (3.6-5.0) 03/15/18 05:30 Chloride 109 mmol/L (98-107) H 03/15/18 05:30 Carbon Dioxide 23 mmol/L (21-33) 03/15/18 05:30 Anion Gap 17 (10-20) 03/15/18 05:30 BUN 19 mg/dL (7-21) 03/15/18 05:30 Creatinine 0.9 mg/dl (0.8-1.5) 03/15/18 05:30 Est GFR ( Amer) > 60 03/15/18 05:30 Est GFR (Non-Af Amer) > 60 03/15/18 05:30 Random Glucose 95 mg/dL (70-110) 03/15/18 05:30 Calcium 9.3 mg/dL (8.4-10.5) 03/15/18 05:30 Phosphorus 5.0 mg/dL (2.5-4.5) H 03/14/18 06:30 Magnesium 2.0 mg/dL (1.7-2.2) 03/14/18 06:30 Total Bilirubin 0.3 mg/dL (0.2-1.3) 03/15/18 05:30 AST 47 U/L (17-59) 03/15/18 05:30 ALT 64 U/L (7-56) H 03/15/18 05:30 Alkaline Phosphatase 74 U/L (38-126) 03/15/18 05:30 Lactate Dehydrogenase 529 U/L (333-699) 03/12/18 23:30 Total Creatine Kinase 280 U/L (35-230) H 03/12/18 23:30 CK-MB (CK-2) 1.5 ng/mL (0.0-3.6) 03/12/18 23:30 CK-MB (CK-2) % Cancelled 03/12/18 23:30 Troponin I < 0.01 ng/mL 03/13/18 12:00 Total Protein 7.3 g/dL (5.8-8.3) 03/15/18 05:30 Albumin 4.4 g/dL (3.0-4.8) 03/15/18 05:30 Globulin 2.9 gm/dL 03/15/18 05: Albumin/Globulin Ratio 1.5 (1.1-1.8) 03/15/18 05: Free T4 0.60 ng/dL (0.78-2.19) L 03/13/18 07:00 TSH 3rd Generation 2.46 mIU/mL (0.46-4.68) 03/13/18 07:00 Urine Color Yellow (YELLOW) 03/12/18 23:30 Urine Appearance Clear (CLEAR) 03/12/18 23:30 Urine pH 8.0 (4.7-8.0) 03/12/18 23:30 Ur Specific [place] 1.015 (1.005-1.035) 03/12/18 23:30 Urine Protein Trace mg/dL (<30 mg/dL) H 03/12/18 23:30 Urine Glucose (UA) Negative mg/dL (NEGATIVE) 03/12/18 23:30 Urine Ketones Negative mg/dL (NEGATIVE) 03/12/18 23:30 Urine Blood Negative (NEGATIVE) 03/12/18 23:30 Urine Nitrate Negative (NEGATIVE) 03/12/18 23:30 Urine Bilirubin Negative (NEGATIVE) 03/12/18 23:30 Urine Urobilinogen 0.2 E.U./dL (<1 E.U./dL) 03/12/18 23:30 Ur Leukocyte Esterase Negative Kiersten/uL (NEGATIVE) 03/12/18 23:30 Urine RBC 0 - 2 /hpf (0-2) 03/12/18 23:30 Urine WBC 0 - 2 /hpf (0-6) 03/12/18 23:30 Ur Epithelial Cells 0 - 2 /hpf (0-5) 03/12/18 23:30 Urine Opiates Screen Negative (NEGATIVE) 03/12/18 23:30 Urine Methadone Screen Negative (NEGATIVE) 03/12/18 23:30 Ur Barbiturates Screen Negative (NEGATIVE) 03/12/18 23:30 Ur Phencyclidine Scrn Negative (NEGATIVE) 03/12/18 23:30 Ur Amphetamines Screen Negative (NEGATIVE) 03/12/18 23:30 U Benzodiazepines Scrn Positive (NEGATIVE) 03/12/18 23:30 U Oth Cocaine Metabols Negative (NEGATIVE) 03/12/18 23:30 U Cannabinoids Screen Positive (NEGATIVE) H 03/12/18 23:30 Alcohol, Quantitative 147 mg/dL (0-10) H 03/12/18 23:30 HIV 1&2 Antibody Screen Negative (NEGATIVE) 03/13/18 07:00 - Hospital Course Hospital Course: 27 year old homosexual male with a past medical history of depression, suicidal ideation with a prior attempt, anxiety, polysubstance abuse who presented to [facility] with complaints of suicidal ideation, headache, nausea, vomiting, diaphoresis, anxiety, and chest pain in the setting of alcohol withdrawal and recent cocaine use. Initial labs and imaging, including, but not limited to, Chest X- ray and CT head were negative. Urine drug screen was positive for benzodiazepines and cannabinoids while blood alcohol level was 147. EKG and troponins were negative for ischemia. The patient was admitted to telemetry and observed with a 1:1 for suicidal ideaiton along with instituting CIWA protocol, seizure precautions, fall precautions, and started on IV lorazepam for his alcohol withdrawal symptoms. Psychiatry was consulted and rescinded the 1:1 and adjusted the patients psychotropic medications. Important to note that the patient was evaluated on three separate occasions by psychiatry and determined not to be suicidal on all of these occasions. Furthermore, at the patient's family request and other concerns regarding his mental health, psychiatry twice offered inpatient psychiatric admission that the patient refused. The patient's hospital stay was complicated by auditory and visual hallucination which resolved during his admission. The patient was discharged with resolution of all his initial symptoms, and was counselled on abstaining from all drugs. He was discharged with the below written prescriptions and recommendations. - Date & Time of H&P Date of H&P: 03/16/18 Time of H&P: 11:15 Discharge Exam - Head Exam Head Exam: ATRAUMATIC, NORMOCEPHALIC - Eye Exam Eye Exam: EOMI, Normal appearance - ENT Exam ENT Exam: Mucous Membranes Moist, Normal Oropharynx - Neck Exam Neck exam: Normal Inspection - Respiratory Exam Respiratory Exam: Clear to PA & Lateral, NORMAL BREATHING PATTERN. absent: Accessory Muscle Use - Cardiovascular Exam Cardiovascular Exam: RRR, +S1, +S2 Discharge Plan - Discharge Medications Prescriptions: Folic Acid 1 mg PO DAILY #14 tab Lorazepam [Ativan] 0.5 mg PO DAILY PRN #3 tab PRN Reason: Agitation Mirtazapine [Remeron] 15 mg PO HS #14 tab Multivitamins [Hexavitamin] 1 tab PO DAILY #14 tab Thiamine [Vitamin B1 Tab] 100 mg PO DAILY #14 tab - Follow Up Plan Condition: STABLE Disposition: HOME/ ROUTINE Instructions: Anxiety, Adult (DC), Alcohol Abuse and Alcoholism (DC), Effects of Alcohol on Your Health Additional Instructions: 1) Patient to contact Primary psychiatrist in regards to obtaining refills on his medications. The only medications the patient is being prescribed as an outpatient are a multivitamin, folic acid, thiamine, and Remron 15 mg #14. -Patient to take any medications as prescribed, unless otherwise indicated. 2) Patient to avoid alcohol, tobacco, and illicit drug use. 3) Patient to follow up with PMD within the next week. Referrals: Sheela Puga MD [Primary Care Provider] - <Jeanine Wick - Last Filed: 03/16/18 13:36> Provider - Provider Date of Admission: 03/14/18 17:23 Attending physician: Jeanine Wick MD Primary care physician: Sheela Puga MD Hospital Course - Lab Results Lab Results: Most Recent Lab Values WBC 8.3 10^3/ul (4.5-11.0) 03/15/18 05:30 RBC 4.37 10^6/uL (3.5-6.1) 03/15/18 05:30 Hgb 14.1 g/dL (14.0-18.0) 03/15/18 05:30 Hct 41.5 % (42.0-52.0) L 03/15/18 05:30 MCV 95.0 fl (80.0-105.0) 03/15/18 05:30 MCH 32.3 pg (25.0-35.0) 03/15/18 05:30 MCHC 34.0 g/dl (31.0-37.0) 03/15/18 05:30 RDW 12.4 % (11.5-14.5) 03/15/18 05:30 Plt Count 219 10^3/uL (120.0-450.0) 03/15/18 05:30 MPV 10.4 fl (7.0-11.0) 03/15/18 05:30 Gran % 45.2 % (50.0-68.0) L 03/15/18 05:30 Lymph % (Auto) 42.0 % (22.0-35.0) H 03/15/18 05:30 [place] % (Auto) 5.2 % (1.0-6.0) 03/15/18 05:30 Eos % (Auto) 7.0 % (1.5-5.0) H 03/15/18 05:30 Baso % (Auto) 0.6 % (0.0-3.0) 03/15/18 05:30 Gran # 3.75 (1.4-6.5) 03/15/18 05:30 Lymph # (Auto) 3.5 (1.2-3.4) H 03/15/18 05:30 [place] # (Auto) 0.4 (0.1-0.6) 03/15/18 05:30 Eos # (Auto) 0.6 (0.0-0.7) 03/15/18 05:30 Baso # (Auto) 0.05 K/mm3 (0.0-2.0) 03/15/18 05:30 Sodium 145 mmol/L (132-148) 03/15/18 05:30 Potassium 4.1 mmol/L (3.6-5.0) 03/15/18 05:30 Chloride 109 mmol/L (98-107) H 03/15/18 05:30 Carbon Dioxide 23 mmol/L (21-33) 03/15/18 05:30 Anion Gap 17 (10-20) 03/15/18 05:30 BUN 19 mg/dL (7-21) 03/15/18 05:30 Creatinine 0.9 mg/dl (0.8-1.5) 03/15/18 05:30 Est GFR ( Amer) > 60 03/15/18 05:30 Est GFR (Non-Af Amer) > 60 03/15/18 05:30 Random Glucose 95 mg/dL (70-110) 03/15/18 05:30 Calcium 9.3 mg/dL (8.4-10.5) 03/15/18 05:30 Phosphorus 5.0 mg/dL (2.5-4.5) H 03/14/18 06:30 Magnesium 2.0 mg/dL (1.7-2.2) 03/14/18 06:30 Total Bilirubin 0.3 mg/dL (0.2-1.3) 03/15/18 05:30 AST 47 U/L (17-59) 03/15/18 05:30 ALT 64 U/L (7-56) H 03/15/18 05:30 Alkaline Phosphatase 74 U/L (38-126) 03/15/18 05:30 Lactate Dehydrogenase 529 U/L (333-699) 03/12/18 23:30 Total Creatine Kinase 280 U/L (35-230) H 03/12/18 23:30 CK-MB (CK-2) 1.5 ng/mL (0.0-3.6) 03/12/18 23:30 CK-MB (CK-2) % Cancelled 03/12/18 23:30 Troponin I < 0.01 ng/mL 03/13/18 12:00 Total Protein 7.3 g/dL (5.8-8.3) 03/15/18 05:30 Albumin 4.4 g/dL (3.0-4.8) 03/15/18 05:30 Globulin 2.9 gm/dL 03/15/18 05:30 Albumin/Globulin Ratio 1.5 (1.1-1.8) 03/15/18 05:30 Free T4 0.60 ng/dL (0.78-2.19) L 03/13/18 07:00 TSH 3rd Generation 2.46 mIU/mL (0.46-4.68) 03/13/18 07:00 Urine Color Yellow (YELLOW) 03/12/18 23:30 Urine Appearance Clear (CLEAR) 03/12/18 23:30 Urine pH 8.0 (4.7-8.0) 03/12/18 23:30 Ur Specific [place] 1.015 (1.005-1.035) 03/12/18 23:30 Urine Protein Trace mg/dL (<30 mg/dL) H 03/12/18 23:30 Urine Glucose (UA) Negative mg/dL (NEGATIVE) 03/12/18 23:30 Urine Ketones Negative mg/dL (NEGATIVE) 03/12/18 23:30 Urine Blood Negative (NEGATIVE) 03/12/18 23:30 Urine Nitrate Negative (NEGATIVE) 03/12/18 23:30 Urine Bilirubin Negative (NEGATIVE) 03/12/18 23:30 Urine Urobilinogen 0.2 E.U./dL (<1 E.U./dL) 03/12/18 23:30 Ur Leukocyte Esterase Negative Kiersten/uL (NEGATIVE) 03/12/18 23:30 Urine RBC 0 - 2 /hpf (0-2) 03/12/18 23:30 Urine WBC 0 - 2 /hpf (0-6) 03/12/18 23:30 Ur Epithelial Cells 0 - 2 /hpf (0-5) 03/12/18 23:30 Urine Opiates Screen Negative (NEGATIVE) 03/12/18 23:30 Urine Methadone Screen Negative (NEGATIVE) 03/12/18 23:30 Ur Barbiturates Screen Negative (NEGATIVE) 03/12/18 23:30 Ur Phencyclidine Scrn Negative (NEGATIVE) 03/12/18 23:30 Ur Amphetamines Screen Negative (NEGATIVE) 03/12/18 23:30 U Benzodiazepines Scrn Positive (NEGATIVE) 03/12/18 23:30 U Oth Cocaine Metabols Negative (NEGATIVE) 03/12/18 23:30 U Cannabinoids Screen Positive (NEGATIVE) H 03/12/18 23:30 Alcohol, Quantitative 147 mg/dL (0-10) H 03/12/18 23:30 HIV 1&2 Antibody Screen Negative (NEGATIVE) 03/13/18 07:00 Attending/Attestation - Attestation I have personally seen and examined this patient.: Yes I have fully participated in the care of the patient.: Yes I have reviewed all pertinent clinical information, including history, physical exam and plan: Yes Notes (Text): I have seen and examined the patient at bedside. Agree with the above note with the following additions/ exceptions: Briefly this is 27 year old male with history of depression, suicidal ideation, anxiety, polysubstance abuse (Alcohol , heroin, cocaine) and Seizure due to alcohol withdrawal, admitted for evaluation and treatment of EtOH withdrawal. He appears better today and denies any complaints. Psych admission was offered however he refused. Counselling provided regarding poly substance abuse. Patient was advised to follow up with [facility] psychiatrist. Psychiatrist advised us to give 2 weeks supply of remeron. Upon discharge patient will follow up with Dr Sheela Puga. Dr Jeanine Wick
[2018-03-16 11:50] VITALS: PULSE 63
--- NOTE | 2018-03-16 14:19 | PN ---
DATE: 03/16/2018 FOLLOWUP NOTE SUBJECTIVE: The patient was followed up as per medical team's request because the patient's mother expressed her concerns about the patient discharge. The patient was held overnight for observation. This creative writer would like to emphasize the fact that the patient was seen by Dr. Mi. The patient denied any thoughts of harming himself and Dr. Mi signed off over this weekend. The patient was followed up today. The patient gave permission to talk to his mother, Stephanie, phone number is [phone]. As per Stephanie, the patient was using drugs. The patient was complaining of anxiety at the same time. The patient did not verbalize any thoughts of harming himself or others, was not psychotic, was not agitated. The patient's mother has concerns about the patient's substance abuse as well as consent relapses. The patient's mother expressed her willingness for her son to go to the Psychiatric Inpatient Unit. At the same time, this creative writer explained that the patient needs to meet the criteria to go to the Psychiatric Inpatient Unit at the first place. Moreover, in regards of the substance abuse, it is voluntary units only. The patient needs to express his interest to go to inpatient rehab. On top of that, the patient does not meet the criteria for involuntary commitment either. The patient mother seems to be concerned about the patient's constant use of drugs, but mother was not concerning about the patient's safety. The patient never said that he wanted to kill himself. The patient never said that he wants to kill others. The patient was not psychotic or agitated. Concerns were about substance abuse mostly. This creative writer let mother know that the patient most likely will be discharged today from the medical site. The patient's mother was appreciative for this creative writer called. Going back to the patient, the patient presented well. The patient reported that he does not feel depressed. Denied thoughts of killing himself or others. The patient adamantly denied hearing voices or seeing things. The patient reported that he had information about outpatient program. The patient was going to [facility] outpatient [facility] program. The patient reported that he wants to be followed up with his regular psychiatrist. The patient missed his appointment last Thursday. The patient has information about outpatient program and has phone number. The patient said that he wants to schedule outpatient followup appointment. Vital signs reviewed. Temperature 97.8, pulse is 97, blood pressure 118/59, respirations 18, oxygen saturation is 98. Medications reviewed. The patient is on folic acid, heparin, Vistaril was as needed. The patient did not require Vistaril. Ativan 0.5 mg IV push every 6 hours p.r.n. for alcohol withdrawal symptoms as well as Remeron 15 mg at the nighttime as needed for depression and insomnia. Multivitamins, Nicoderm, Zofran, Protonix and thiamine. Labs reviewed. Most recent was from yesterday. No acute changes. MENTAL STATUS EXAMINATION: The patient appears to be alert and oriented. No withdrawal symptoms. No upper extremity tremor, good personal hygiene, good eye contact. Speech was normal rate, tone, quality and quantity. Mood described I feel fine, I want to go home. Affect was reactive, mood congruent. Thought process coherent and goal directed. Thought content, the patient denied visual, auditory or tactile hallucinations. Denied paranoid ideations. The patient denied thoughts of harming himself or others. Denied intents or plan. Insight and judgment seems to be limited in regards of substance abuse, but in regards of the mental illness and possible mood disorder, seems to be fair. Impulses are well controlled. IMPRESSION: Rule out substance-induced mood disorder, self-reported history of attention deficit hyperactivity disorder. Rule out substance-induced anxiety disorder. PLAN: The patient has information about outpatient program of [facility], [facility] program. Mental illness plus chemical addiction. The patient missed his appointment last Thursday. The patient has future oriented plans to reschedule his appointment. The patient said that the only medication which helped him in the past is Ativan, but the patient has history of substance abuse and Ativan is very addictive. Moreover, it has treat value. This creative writer will not recommend to continue that, but if the patient is on tapering dose of medication, please provide a few day supply in order to avoid possible withdrawal symptoms. Alcohol use disorder. The patient was on naltrexone before. The patient does not want to be on that medication. The patient can be followed up as outpatient. Initially, this creative writer offered admission because the patient has psychotic symptoms, but at present moment, the patient presented well. The patient does not meet the criteria for psychiatric admission as well as the patient does not meet the criteria for involuntary screening. Collaterals were obtained from the patient's mother. The patient has verbalized thoughts of killing himself. The patient's mother was concerned about the patient addiction problem. Besides that, the patient is not in any imminent danger to self or others. This creative writer will sign off. Case is discussed with medical team. Altogether, it took more than 40 minutes to take care of that patient. Hollie Orellana MD
== END 2018-03-16 13:21 | disposition home or self-care (01) | DRG 744 ==
LOC: ED 22:40 → ERH 03-13 00:33 → 2RSO 03-13 02:05 → 3RNO 03-13 11:22 → OBSVTOIN 03-14 17:23
PROVIDERS: ADMIT Internal Medicine; ATTEND Hospitalist
DX: F10.231 Alcohol dependence with withdrawal delirium (principal); R56.9 Unspecified convulsions; F11.10 Opioid abuse, uncomplicated; F14.10 Cocaine abuse, uncomplicated; F12.10 Cannabis abuse, uncomplicated; F15.90 Other stimulant use, unspecified, uncomplicated; F41.0 Panic disorder [episodic paroxysmal anxiety]; F32.9 Major depressive disorder, single episode, unspecified; R45.851 Suicidal ideations; Y90.6 Blood alcohol level of 120-199 mg/100 ml; R07.89 Other chest pain; Z83.3 Family history of diabetes mellitus

== ENCOUNTER 2018-03-20 02:52 | Emergency (ER) | payer OTHER ==
[2018-03-20 02:58] VITALS: BMI 27.1
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
[2018-03-20 04:09] LABS: HEMOGLOBIN 14.4 g/dL (14.0-18.0); MEAN CELL VOLUME 94.9 fl (80.0-105.0); MEAN CORPUSCULAR HEMOGLOBIN 33.2 pg (25.0-35.0); MEAN PLATELET VOLUME 9.9 fl (7.0-11.0); RBC 4.34 10^6/uL (3.5-6.1); RED CELL DISTRIBUTION WIDTH 12.6 % (11.5-14.5); WHITE BLOOD COUNT 8.5 10^3/ul (4.5-11.0)
[2018-03-20 04:31] LABS: ALB/GLOB RATIO 1.4 (1.1-1.8); ALBUMIN 4.6 g/dL (3.0-4.8); ALT/SGPT 109 U/L (7-56); AST/SGOT 52 U/L (17-59); BLOOD UREA NITROGEN 15 mg/dL (7-21); CALCIUM 9.1 mg/dL (8.4-10.5); GFR AFRICAN-AMERICAN > 60; GFR NON-AFRICAN AMERICAN > 60
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
[2018-03-20 07:35] VITALS: RESP 19
[2018-03-20 08:15] LABS: BARBITURATES, UR NEGATIVE (NEGATIVE); BENZODIAZEPINES, UR NEGATIVE (NEGATIVE); OPIATES, UR NEGATIVE (NEGATIVE); PHENCYCLIDINE, UR NEGATIVE (NEGATIVE)
--- NOTE | 2018-03-20 09:50 | CARD ---
APPROVED REPORT EKG Measurement Heart [id number] <Conclusion> Normal sinus rhythm Incomplete right bundle branch block No change
[2018-03-20 10:21] VITALS: BP 128/72; PULSE 85; TEMP 98; O2SAT 99
== END 2018-03-20 10:21 | disposition home or self-care (01) ==
LOC: ED 02:52
DX: F10.129 Alcohol abuse with intoxication, unspecified (principal); F19.94 Other psychoactive substance use, unspecified with psychoactive substance-induced mood disorder; F17.210 Nicotine dependence, cigarettes, uncomplicated

== ENCOUNTER 2018-03-29 13:56 | Emergency (ER) | payer OTHER ==
[2018-03-29 14:14] VITALS: TEMP 98.3
[2018-03-29 14:15] VITALS: BMI 25.8
--- NOTE | 2018-03-29 14:29 | ED PDOC ---
Arrival/HPI - General Chief Complaint: Substance Abuse Time Seen by Provider: 03/29/18 14:24 Historian: Patient - History of Present Illness Narrative History of Present Illness (Text): 03/29/18 14:26 27 year old male, who presents to the emergency department s/p substance abuse, prior to arrival. Patient reports having 5 ecstasy's and 2mg of Ativan, and is currently experiencing chest pain and difficulty breathing. Patient notes he took the first pill at 11AM and the second time was 1 hour ago. Patient denies vomiting, fever, abdominal pain, dysuria, or other complaints. Time/Duration: Prior to Arrival Symptom Onset: Sudden Symptom Course: Unchanged Past Medical History - Provider Review Nursing Documentation Reviewed: Yes - Past History Past History: No Previous (alcohol dependent) - Infectious Disease Hx of Infectious Diseases: None - Tetanus Immunization Tetanus Immunization: Unknown - Past Medical History Past Medical History: No Previous - Cardiac Hx Cardiac Disorders: No - Pulmonary Hx Respiratory Disorders: No - Neurological Hx Neurological Disorder: No - HEENT Hx HEENT Disorder: No - Renal Hx Renal Disorder: No - Endocrine/Metabolic Hx Endocrine Disorders: No - Hematological/Oncological Hx Blood Disorders: No - Integumentary Hx Dermatological Disorder: No - Musculoskeletal/Rheumatological Hx Musculoskeletal Disorders: Yes Hx Fractures: Yes - Gastrointestinal Hx Gastrointestinal Disorders: No - Genitourinary/Gynecological Hx Genitourinary Disorders: No - Psychiatric Hx Psychophysiologic Disorder: Yes Hx Anxiety: Yes Hx Depression: Yes Hx Panic Disorder: Yes Hx Substance Use: Yes - Past Surgical History Past Surgical History: No Previous - Surgical History Hx Appendectomy: Yes Hx Musculoskeletal Surgery: Yes Hx Orthopedic Surgery: Yes - Anesthesia Hx Anesthesia: Yes Hx Anesthesia Reactions: No Hx Malignant Hyperthermia: No - Suicidal Assessment Feels Threatened In Home Enviroment: No Family/Social History - Physician Review Nursing Documentation Reviewed: Yes Family/Social History: Unknown Family HX Smoking Status: Heavy Smoker > 10 Cigarettes Daily Hx Alcohol Use: Yes Hx Substance Use: Yes Substance used: marijuana; ecstasy; ativan Hx Substance Use Treatment: No Allergies/Home Meds Allergies/Adverse Reactions: Allergies No Known Allergies Allergy (Verified 03/20/18 02:59) Physical Exam Vital Signs Reviewed: Yes Vital Signs Temp Pulse Resp BP Pulse Ox 03/29/18 15:31 94 H 18 142/92 H 96 03/29/18 14:13 98.3 F 132 H 22 146/86 99 Temperature: Afebrile Blood Pressure: Normal Pulse: Tachycardic Respiratory Rate: Normal Appearance: Positive for: Well-Appearing, Non-Toxic, Comfortable Pain Distress: None Mental Status: Positive for: Alert and Oriented X 3 - Systems Exam Respiratory/Chest: Present: Clear to Auscultation, Good Air Exchange. No: Respiratory Distress, Accessory Muscle Use, Wheezes, Rales, Rhonchi Neurological: Present: GCS=15, CN II-XII Intact, Speech Normal Skin: Present: Warm, Dry, Normal Color. No: Rashes Psychiatric: Present: Alert, Oriented x 3, Normal Insight, Normal Concentration , Intoxicated (ecstacy ) Medical Decision Making ED Course and Treatment: 03/29/18 Impression: 27 year old male, with substance abuse of ecstasy. Plan: -- EKG -- Chest X-ray -- Labs -- Urinalysis -- Reassess and disposition Progress Notes: 03/29/18 14:34 Case discussed with Calos from poison control who recommends to give patient Ativan. Chest X-ray Dictator : Missael Arrieta MD Report Date : 03/29/2018 14:54:43 IMPRESSION: No active disease. 03/29/18 15:20 EKG: Ordered, reviewed, and independently interpreted the EKG. Rate : 116 BPM Rhythm : Sinus Tachycardia Interpretation : Right Rowley Devitation 03/29/18 16:50: Discussed with Poison Control. They state that in terms of disposition, the patient can go home if he is feeling better. - Lab Interpretations Lab Results: 03/29/18 14:25 03/29/18 14:25 Lab Results 03/29/18 14:25: Salicylates < 1 L, Acetaminophen < 10.0 L 03/29/18 14:25: Sodium 143, Potassium 3.3 L, Chloride 100, Carbon Dioxide 21, Anion Gap 25 H, BUN 15, Creatinine 1.1, Est GFR ( Amer) > 60, Est GFR ( Non-Af Amer) > 60, Random Glucose 111 H, Calcium 10.5, Magnesium 1.9, Total Bilirubin 0.6, AST 45, ALT 64 H, Alkaline Phosphatase 85, Lactate Dehydrogenase 506, Total Creatine Kinase 436 H, CK-MB (CK-2) 3.0, CK-MB (CK-2) % 0.1 L, Troponin I < 0.01, Total Protein 8.7 H, Albumin 5.4 H, Globulin 3.3, Albumin/ Globulin Ratio 1.6 03/29/18 14:25: WBC 14.1 H D, RBC 4.91, Hgb 16.3, Hct 45.7, MCV 93.1, MCH 33.2, MCHC 35.7, RDW 12.8, Plt Count 285, MPV 10.1, Gran % 66.7, Lymph % (Auto) 26.9, King % (Auto) 4.7, Eos % (Auto) 1.3 L, Baso % (Auto) 0.4, Gran # 9.41 H, Lymph # (Auto) 3.8 H, King # (Auto) 0.7 H, Eos # (Auto) 0.2, Baso # (Auto) 0.05 I have reviewed the lab results: Yes - RAD Interpretation Radiology Orders: 03/29/18 14:26 CHEST PORTABLE [RAD] Stat Pony Ride Attendant: Radiologist - EKG Interpretation Interpreted by ED Physician: Yes Type: 12 lead EKG - Medication Orders Current Medication Orders: Potassium Chloride (Potassium Chloride 10 Meq/100 Ml) 10 meq in 100 mls @ 50 mls/hr IVPB ONCE ONE Stop: 03/29/18 18:11 Last Admin: 03/29/18 17:03 Dose: 50 mls/hr eMAR Start Stop Document 03/29/18 17:03 GMD (Rec: 03/29/18 17:04 GMD [id number]) Intravenous Solution Start Date 03/29/18 Start Time 17:03 End Date 03/29/18 End time 19:03 Total Infusion Time 120 Discontinued Medications Famotidine (Pepcid) 20 mg PO STAT STA Stop: 03/29/18 14:35 Last Admin: 03/29/18 14:56 Dose: 20 mg Sodium Chloride (Sodium Chloride 0.9%) 1,000 mls @ 999 mls/hr IV .Q1H1M STA Stop: 03/29/18 15:33 Last Admin: 03/29/18 14:53 Dose: 999 mls/hr eMAR Start Stop Document 03/29/18 14:53 EAR (Rec: 03/29/18 14:53 EAR [id number]) Intravenous Solution Start Date 03/29/18 Start Time 14:53 End Date 03/29/18 End time 15:55 Total Infusion Time 62 Sodium Chloride (Sodium Chloride 0.9%) 1,000 mls @ 999 mls/hr IV .Q1H1M STA Stop: 03/29/18 17:15 Last Admin: 03/29/18 16:54 Dose: 999 mls/hr eMAR Start Stop Document 03/29/18 16:54 GMD (Rec: 03/29/18 16:54 GMD [id number]) Intravenous Solution Start Date 03/29/18 Start Time 16:54 End Date 03/29/18 End time 17:54 Total Infusion Time 60 Ketorolac Tromethamine (Toradol) 30 mg IVP STAT STA Stop: 03/29/18 16:20 Last Admin: 03/29/18 16:51 Dose: 30 mg MAR Pain Assessment Document 03/29/18 16:51 GMD (Rec: 03/29/18 16:51 GMD [id number]) Pain Reassessment Is this a pain reassessment? No Presence of Pain Presence of Pain Yes IVP Administration Document 03/29/18 16:51 GMD (Rec: 03/29/18 16:51 GMD [id number]) Charges for Administration # of IVP Administrations 1 Lorazepam (Ativan) 2 mg IVP ONCE ONE PRN Reason: Protocol Stop: 03/29/18 14:34 Last Admin: 03/29/18 14:56 Dose: 2 mg IVP Administration Document 03/29/18 14:56 EAR (Rec: 03/29/18 14:56 EAR [id number]) Charges for Administration # of IVP Administrations 1 Lorazepam (Ativan) 2 mg IVP ONCE ONE PRN Reason: Protocol Stop: 03/29/18 15:17 Last Admin: 03/29/18 15:27 Dose: 2 mg IVP Administration Document 03/29/18 15:27 EAR (Rec: 03/29/18 15:27 EAR [id number]) Charges for Administration # of IVP Administrations 1 Ondansetron HCl (Zofran Inj) 4 mg IVP STAT STA Stop: 03/29/18 14:35 Last Admin: 03/29/18 15:19 Dose: 4 mg IVP Administration Document 03/29/18 15:19 EAR (Rec: 03/29/18 15:19 EAR [id number]) Charges for Administration # of IVP Administrations 1 - Scribe Statement The provider has reviewed the documentation as recorded by the Ladanibe Analy Davila Provider Scribe Attestation: All medical record entries made by the Scribe were at my direction and personally dictated by me. I have reviewed the chart and agree that the record accurately reflects my personal performance of the history, physical exam, medical decision making, and the department course for this patient. I have also personally directed, reviewed, and agree with the discharge instructions and disposition. Disposition/Present on Arrival - Present on Arrival Any Indicators Present on Arrival: Yes History of DVT/PE: No History of Uncontrolled Diabetes: No Urinary Catheter: No History of Decub. Ulcer: No History Surgical Site Infection Following: None - Disposition Have Diagnosis and Disposition been Completed?: Yes Diagnosis: Substance abuse, Alcohol abuse Disposition: HOME/ ROUTINE Disposition Time: 18:01 Patient Plan: Discharge Condition: IMPROVED Discharge Instructions (ExitCare): Drug Abuse and Drug Addiction (DC), Alcohol Abuse and Alcoholism (DC) Referrals: Sheela Puga MD [Primary Care Provider] - Follow up with primary Forms: [employer] (Bangladeshi)
[2018-03-29] MEDS ORDERED: Sodium Chloride 0.9% 1,000 ML IV STA ×2 (14:33→16:15)
--- NOTE | 2018-03-29 14:56 | RAD ---
HISTORY: shortness of breath COMPARISON: 03/13/2018 FINDINGS: LUNGS: No active pulmonary disease. PLEURA: No significant pleural effusion identified, no pneumothorax apparent. CARDIOVASCULAR: Normal. OSSEOUS STRUCTURES: No significant abnormalities. VISUALIZED UPPER ABDOMEN: Normal. OTHER FINDINGS: None. IMPRESSION: No active disease.
[2018-03-29 14:59] LABS: BASO # 0.05 K/mm3 (0.0-2.0); BASO % 0.4 % (0.0-3.0); EOS # 0.2 (0.0-0.7); EOS % 1.3 % (1.5-5.0); GRAN # 9.41 (1.4-6.5); GRAN % 66.7 % (50.0-68.0); HEMOGLOBIN 16.3 g/dL (14.0-18.0); LYMPH # 3.8 (1.2-3.4); LYMPH % 26.9 % (22.0-35.0); MEAN CELL VOLUME 93.1 fl (80.0-105.0); MEAN CORPUSCULAR HEMOGLOBIN 33.2 pg (25.0-35.0); MEAN CORPUSCULAR HGB CONC 35.7 g/dl (31.0-37.0); MEAN PLATELET VOLUME 10.1 fl (7.0-11.0); MONO # 0.7 (0.1-0.6); MONO % 4.7 % (1.0-6.0); RBC 4.91 10^6/uL (3.5-6.1); RED CELL DISTRIBUTION WIDTH 12.8 % (11.5-14.5); WHITE BLOOD COUNT 14.1 10^3/ul (4.5-11.0)
[2018-03-29 15:32] VITALS: RESP 18
[2018-03-29 16:15] LABS: TROPONIN I < 0.01 ng/mL
[2018-03-29 16:30] LABS: ACETAMINOPHEN < 10.0 ug/ml (10.0-20.0); SALICYLATE < 1 mg/dL (2.0-20.0)
[2018-03-29 16:47] LABS: ALB/GLOB RATIO 1.6 (1.1-1.8); ALBUMIN 5.4 g/dL (3.0-4.8); ALT/SGPT 64 U/L (7-56); AST/SGOT 45 U/L (17-59); BLOOD UREA NITROGEN 15 mg/dL (7-21); CALCIUM 10.5 mg/dL (8.4-10.5); GFR AFRICAN-AMERICAN > 60; GFR NON-AFRICAN AMERICAN > 60
[2018-03-29 16:55] LABS: CK MB% 0.1 % (2.5-3.0)
[2018-03-29 18:07] VITALS: BP 131/71; PULSE 74; O2SAT 97
--- NOTE | 2018-03-29 18:21 | CARD ---
APPROVED REPORT EKG Measurement Heart [id number] [place] 148P79 [id number] <Conclusion> Sinus tachycardia Otherwise normal ECG
== END 2018-03-29 18:20 | disposition home or self-care (01) ==
LOC: ED 13:56
DX: F19.10 Other psychoactive substance abuse, uncomplicated (principal); F10.10 Alcohol abuse, uncomplicated
CPT/HCPCS: 71045; 80053; 80329; 82550; 82553; 83615; 83735; 84484; 85025; 93005; 96361; 96374; 96375; 96376; 99284; J1885; J2060; J2405; J3480; J7040

== ENCOUNTER 2018-03-31 14:20 | Emergency (ER) | payer OTHER ==
[2018-03-31 14:40] VITALS: BP 138/101; BMI 25.1
[2018-03-31 15:09] LABS: BASO # 0.04 K/mm3 (0.0-2.0); BASO % 0.4 % (0.0-3.0); EOS # 0.2 (0.0-0.7); EOS % 1.7 % (1.5-5.0); GRAN # 6.05 (1.4-6.5); GRAN % 61.8 % (50.0-68.0); HEMOGLOBIN 14.3 g/dL (14.0-18.0); LYMPH # 3.1 (1.2-3.4); LYMPH % 31.7 % (22.0-35.0); MEAN CORPUSCULAR HEMOGLOBIN 32.3 pg (25.0-35.0); MEAN PLATELET VOLUME 10.1 fl (7.0-11.0); MONO # 0.4 (0.1-0.6); MONO % 4.4 % (1.0-6.0); RBC 4.43 10^6/uL (3.5-6.1); RED CELL DISTRIBUTION WIDTH 12.6 % (11.5-14.5); WHITE BLOOD COUNT 9.8 10^3/ul (4.5-11.0)
[2018-03-31 15:24] LABS: ALB/GLOB RATIO 1.6 (1.1-1.8); ALBUMIN 4.9 g/dL (3.0-4.8); ALT/SGPT 64 U/L (7-56); AST/SGOT 56 U/L (17-59); BLOOD UREA NITROGEN 14 mg/dL (7-21); CALCIUM 9.8 mg/dL (8.4-10.5); GFR AFRICAN-AMERICAN > 60; GFR NON-AFRICAN AMERICAN > 60
[2018-03-31 15:32] LABS: TROPONIN I < 0.01 ng/mL
--- NOTE | 2018-03-31 15:38 | RAD ---
HISTORY: chest pain COMPARISON: 03/29/2018 FINDINGS: LUNGS: No active pulmonary disease. PLEURA: No significant pleural effusion identified, no pneumothorax apparent. CARDIOVASCULAR: Normal. OSSEOUS STRUCTURES: No significant abnormalities. VISUALIZED UPPER ABDOMEN: Normal. OTHER FINDINGS: None. IMPRESSION: No active disease. No significant interval change compared to the prior examination(s).
[2018-03-31 16:01] LABS: CK-MB 1.4 ng/mL (0.0-3.6)
[2018-03-31 16:45] VITALS: PULSE 77; RESP 18; TEMP 98.1; O2SAT 98
--- NOTE | 2018-03-31 18:44 | ED PDOC ---
Arrival/HPI - General Chief Complaint: Chest Pain Time Seen by Provider: 03/31/18 14:36 Historian: Patient - History of Present Illness Narrative History of Present Illness (Text): 03/31/18 18:44 A 27 year old male, whose past medical history includes substance abuse, presents to the emergency department complaining of chest pain. Patient reports sharp substernal chest pain earlier this morning, non radiating. Patient denies any shortness of breath, fever, cough or any other complaints at this time. Denies any cardiac history. Symptom Onset: Sudden Symptom Course: Unchanged Activities at Onset: Rest Context: Home Past Medical History - Provider Review Nursing Documentation Reviewed: Yes - Past History Past History: No Previous (alcohol dependent) - Infectious Disease Hx of Infectious Diseases: None - Tetanus Immunization Tetanus Immunization: Unknown - Past Medical History Past Medical History: No Previous - Cardiac Hx Cardiac Disorders: No - Pulmonary Hx Respiratory Disorders: No - Neurological Hx Neurological Disorder: No - HEENT Hx HEENT Disorder: No - Renal Hx Renal Disorder: No - Endocrine/Metabolic Hx Endocrine Disorders: No - Hematological/Oncological Hx Blood Disorders: No - Integumentary Hx Dermatological Disorder: No - Musculoskeletal/Rheumatological Hx Musculoskeletal Disorders: Yes Hx Fractures: Yes - Gastrointestinal Hx Gastrointestinal Disorders: No - Genitourinary/Gynecological Hx Genitourinary Disorders: No - Psychiatric Hx Psychophysiologic Disorder: Yes Hx Anxiety: Yes Hx Depression: Yes Hx Panic Disorder: Yes Hx Substance Use: Yes - Past Surgical History Past Surgical History: No Previous - Surgical History Hx Appendectomy: Yes Hx Musculoskeletal Surgery: Yes Hx Orthopedic Surgery: Yes - Anesthesia Hx Anesthesia: Yes Hx Anesthesia Reactions: No Hx Malignant Hyperthermia: No - Suicidal Assessment Feels Threatened In Home Enviroment: No Family/Social History - Physician Review Nursing Documentation Reviewed: Yes Family/Social History: No Known Family HX Smoking Status: Heavy Smoker > 10 Cigarettes Daily Hx Alcohol Use: Yes Hx Substance Use: Yes Substance used: marijuana; ecstasy; ativan Hx Substance Use Treatment: No Allergies/Home Meds Allergies/Adverse Reactions: Allergies No Known Allergies Allergy (Verified 03/31/18 14:24) Review of Systems - Physician Review All systems were reviewed & negative as marked: Yes - Review of Systems Constitutional: absent: Fevers Respiratory: absent: SOB, Cough Cardiovascular: Chest Pain Physical Exam Vital Signs Reviewed: Yes Vital Signs Temp Pulse Pulse Resp BP Pulse Ox 03/31/18 16:44 98.1 F 77 18 98 03/31/18 14:28 98.0 F 71 19 138/101 H 100 03/31/18 14:27 69 Pulse: Regular Appearance: Positive for: Well-Appearing, Non-Toxic, Comfortable Pain Distress: None Mental Status: Positive for: Alert and Oriented X 3 - Systems Exam Head: Present: Atraumatic, Normocephalic Pupils: Present: PERRL Extroacular Muscles: Present: EOMI Conjunctiva: Present: Normal Mouth: Present: Moist Mucous Membranes Neck: Present: Normal Range of Motion Respiratory/Chest: Present: Clear to Auscultation, Good Air Exchange. No: Respiratory Distress, Accessory Muscle Use Cardiovascular: Present: Regular Rate and Rhythm, Normal S1, S2. No: Murmurs Abdomen: No: Tenderness, Distention, Peritoneal Signs Back: Present: Normal Inspection Upper Extremity: Present: Normal Inspection. No: Cyanosis, Edema Lower Extremity: Present: Normal Inspection. No: Edema Neurological: Present: GCS=15, CN II-XII Intact, Speech Normal Skin: Present: Warm, Dry, Normal Color. No: Rashes Psychiatric: Present: Alert, Oriented x 3, Normal Insight, Normal Concentration Medical Decision Making ED Course and Treatment: 03/31/18 18:42 Impression: A 27 year old male with chest pain. Plan: -- EKG -- Chest X-ray -- labs -- Reassess and disposition Prior Visits: Notes and results from previous visits were reviewed. Patient was last seen in the emergency department on 03/29/18 for evaluation of chest pain and difficulty breathing s/p substance abuse. Progress Notes: EKG: Ordered, reviewed, and independently interpreted the EKG. Rate : 66 BPM Rhythm : NSR Interpretation : incomplete right bundle branch block, normal axis 03/31/18 15:40 Chest X-ray- Creator : Julien Ureña MD FINDINGS: LUNGS: No active pulmonary disease. PLEURA: No significant pleural effusion identified, no pneumothorax apparent. CARDIOVASCULAR: Normal. OSSEOUS STRUCTURES: No significant abnormalities. VISUALIZED UPPER ABDOMEN: Normal. IMPRESSION: No active disease. No significant interval change compared to the prior examination(s). Patient is stable and in agreement to be discharged home. Patient to follow up with PMD. - Lab Interpretations Lab Results: 03/31/18 14:54 03/31/18 14:54 Lab Results 03/31/18 14:54: D-Dimer, Quantitative < 200 03/31/18 14:54: Sodium 143, Potassium 3.8, Chloride 106, Carbon Dioxide 22, Anion Gap 19, BUN 14, Creatinine 1.1, Est GFR ( Amer) > 60, Est GFR (Non- Af Amer) > 60, Random Glucose 108, Calcium 9.8, Total Bilirubin 0.9, AST 56, ALT 64 H, Alkaline Phosphatase 73, Lactate Dehydrogenase 500, Total Creatine Kinase 237 H, CK-MB (CK-2) 1.4, CK-MB (CK-2) % Cancelled, Troponin I < 0.01, Total Protein 8.0, Albumin 4.9 H, Globulin 3.1, Albumin/Globulin Ratio 1.6 03/31/18 14:54: WBC 9.8 D, RBC 4.43, Hgb 14.3 D, Hct 42.1, MCV 95.0, MCH 32.3 , MCHC 34.0, RDW 12.6, Plt Count 241, MPV 10.1, Gran % 61.8, Lymph % (Auto) 31.7 , [place] % (Auto) 4.4, Eos % (Auto) 1.7, Baso % (Auto) 0.4, Gran # 6.05, Lymph # ( Auto) 3.1, [place] # (Auto) 0.4, Eos # (Auto) 0.2, Baso # (Auto) 0.04 I have reviewed the lab results: Yes - RAD Interpretation Radiology Orders: 03/31/18 14:41 CHEST PORTABLE [RAD] Stat - EKG Interpretation Interpreted by ED Physician: Yes Type: 12 lead EKG - Scribe Statement The provider has reviewed the documentation as recorded by the Stanley Garcia Provider Scribe Attestation: All medical record entries made by the Scribmigdalia were at my direction and personally dictated by me. I have reviewed the chart and agree that the record accurately reflects my personal performance of the history, physical exam, medical decision making, and the department course for this patient. I have also personally directed, reviewed, and agree with the discharge instructions and disposition. Disposition/Present on Arrival - Present on Arrival Any Indicators Present on Arrival: No History of DVT/PE: No History of Uncontrolled Diabetes: No Urinary Catheter: No History of Decub. Ulcer: No History Surgical Site Infection Following: None - Disposition Have Diagnosis and Disposition been Completed?: Yes Diagnosis: Non-cardiac chest pain Disposition: HOME/ ROUTINE Disposition Time: 15:30 Condition: GOOD Discharge Instructions (ExitCare): Chest Pain (ED) Additional Instructions: Thank you for letting us take care of you today. The emergency medical care you received today was directed at your acute symptoms. If you were prescribed any medication, please fill it and take as directed. It may take several days for your symptoms to resolve. Return to the Emergency Department if your symptoms worsen, do not improve, or if you have any other problems. Please contact your doctor or call one of the physicians/clinics you have been referred to that are listed on the Patient Visit Information form that is included in your discharge packet. Bring any paperwork you were given at discharge with you along with any medications you are taking to your follow up visit. Our treatment cannot replace ongoing medical care by a primary care provider (PCP) outside of the emergency department. Thank you for allowing the [facility] team to be part of your care today. Follow up with your primary doctor in 3-5 days for re-evaluation and further management. Referrals: Sheela Puga MD [Primary Care Provider] - Follow up with primary Forms: [employer] ([place])
--- NOTE | 2018-04-01 13:15 | CARD ---
APPROVED REPORT EKG Measurement Heart [id number] <Conclusion> Normal sinus rhythm Incomplete right bundle branch block Borderline ECG
== END 2018-03-31 16:45 | disposition home or self-care (01) ==
LOC: ED 14:20
DX: R07.89 Other chest pain (principal)

== ENCOUNTER 2018-04-27 21:41 | Emergency (ER) | payer OTHER ==
[2018-04-27 22:33] VITALS: BMI 27.3
[2018-04-27 22:38] VITALS: RESP 18; TEMP 98.1
--- NOTE | 2018-04-27 22:54 | ED PDOC ---
Arrival/HPI - General Chief Complaint: Shortness Of Breath Time Seen by Provider: 04/27/18 22:46 Historian: Patient - History of Present Illness Narrative History of Present Illness (Text): 04/27/18 22:54 Chidi Hopper is a 27 year old male, whose past medical history includes depression, anxiety, polysubstance abuse, and alcohol abuse, who presents to the Emergency department complaining of chest pain. Patient states he recently stopped drinking alcohol and is now experiencing chest pain, abdominal pain, and anxiety. Patient denies any fever, chills,, shortness of breath, nausea, vomiting, diarrhea, urinary symptoms, back pain, neck pain, headache, dizziness , or any other complaints. Symptom Onset: Gradual Symptom Course: Unchanged Activities at Onset: Light Context: Home Past Medical History - Provider Review Nursing Documentation Reviewed: Yes - Past History Past History: No Previous (alcohol dependent) - Infectious Disease Hx of Infectious Diseases: None - Tetanus Immunization Tetanus Immunization: Unknown - Past Medical History Past Medical History: No Previous - Cardiac Hx Cardiac Disorders: No - Pulmonary Hx Respiratory Disorders: No - Neurological Hx Neurological Disorder: No - HEENT Hx HEENT Disorder: No - Renal Hx Renal Disorder: No - Endocrine/Metabolic Hx Endocrine Disorders: No - Hematological/Oncological Hx Blood Disorders: No - Integumentary Hx Dermatological Disorder: No - Musculoskeletal/Rheumatological Hx Musculoskeletal Disorders: Yes Hx Fractures: Yes - Gastrointestinal Hx Gastrointestinal Disorders: No - Genitourinary/Gynecological Hx Genitourinary Disorders: No - Psychiatric Hx Psychophysiologic Disorder: Yes Hx Anxiety: Yes Hx Depression: Yes Hx Panic Disorder: Yes Hx Substance Use: Yes - Past Surgical History Past Surgical History: No Previous - Surgical History Hx Appendectomy: Yes Hx Musculoskeletal Surgery: Yes Hx Orthopedic Surgery: Yes - Anesthesia Hx Anesthesia: Yes Hx Anesthesia Reactions: No Hx Malignant Hyperthermia: No - Suicidal Assessment Feels Threatened In Home Enviroment: No Family/Social History - Physician Review Nursing Documentation Reviewed: Yes Family/Social History: Unknown Family HX Smoking Status: Heavy Smoker > 10 Cigarettes Daily Hx Alcohol Use: Yes Hx Substance Use: Yes Substance used: marijuana; ecstasy; ativan Hx Substance Use Treatment: No Allergies/Home Meds Allergies/Adverse Reactions: Allergies No Known Allergies Allergy (Verified 04/27/18 22:33) Home Medications: Home Meds Medication Instructions Recorded Confirmed cloNIDine [Catapres] 0.1 mg PO BID 04/27/18 04/27/18 hydrOXYzine HCl [Atarax] 50 mg PO TID 04/27/18 04/27/18 Review of Systems - Physician Review All systems were reviewed & negative as marked: Yes - Review of Systems Constitutional: Normal. absent: Fevers Eyes: Normal ENT: Normal Respiratory: Normal. absent: SOB, Cough Cardiovascular: Chest Pain Gastrointestinal: Abdominal Pain Genitourinary Male: Normal. absent: Dysuria Musculoskeletal: Normal. absent: Back Pain, Neck Pain Skin: Normal. absent: Rash Neurological: Normal. absent: Headache, Dizziness Endocrine: Normal Hemo/Lymphatic: Normal Psychiatric: Anxiety Physical Exam Vital Signs Reviewed: Yes Vital Signs Temp Pulse Resp BP Pulse Ox 04/28/18 02:50 75 18 135/75 100 04/27/18 22:40 18 100 04/27/18 22:37 98.1 F 76 18 139/87 97 Temperature: Afebrile Blood Pressure: Normal Pulse: Regular Respiratory Rate: Normal Appearance: Positive for: Well-Appearing, Non-Toxic, Comfortable Pain Distress: None Mental Status: Positive for: Alert and Oriented X 3 - Systems Exam Head: Present: Atraumatic, Normocephalic Pupils: Present: PERRL Extroacular Muscles: Present: EOMI Conjunctiva: Present: Normal Mouth: Present: Moist Mucous Membranes Neck: Present: Normal Range of Motion Respiratory/Chest: Present: Clear to Auscultation, Good Air Exchange. No: Respiratory Distress, Accessory Muscle Use Cardiovascular: Present: Regular Rate and Rhythm, Normal S1, S2. No: Murmurs Abdomen: No: Tenderness, Distention, Peritoneal Signs Back: Present: Normal Inspection Upper Extremity: Present: Normal Inspection. No: Cyanosis, Edema Lower Extremity: Present: Normal Inspection. No: Edema Neurological: Present: GCS=15, CN II-XII Intact, Speech Normal Skin: Present: Warm, Dry, Normal Color. No: Rashes Psychiatric: Present: Alert, Oriented x 3, Normal Insight, Normal Concentration Medical Decision Making ED Course and Treatment: 04/27/18 22:54 Impression: 27 year old male complaining of chest pain, abdominal pain, and anxiety. Plan: -- EKG -- Labs, cardiac enzymes, alcohol level -- Urinalysis, urine drug screen -- IV fluids -- Zofran -- Duoneb -- Reassess and disposition Prior Visits: Notes and results from previous visits were reviewed. Progress Notes: Reviewed EKG, NSR at 67 bpm. Sinus arrhythmia. Incomplete RBBB. 04/28/18 01:40 Chest X-ray reviewed, shows no acute processes. 04/28/18 02:50 On re-evaluation, patient feels better and is in no acute distress. I have discussed the results and plan with the patient, who expresses understanding. Patient in agreement with plan to be discharged home. Patient is stable for discharge. Patient was instructed to follow up with physician or return if symptoms worsen or new concerning symptoms arise. - Lab Interpretations Lab Results: 04/27/18 23:25 04/27/18 23:25 Lab Results 04/27/18 23:25: Alcohol, Quantitative < 10 04/27/18 23:25: Urine Opiates Screen Negative, Urine Methadone Screen Negative, Ur Barbiturates Screen Negative, Ur Phencyclidine Scrn Negative, Ur Amphetamines Screen Negative, U Benzodiazepines Scrn Negative, U Oth Cocaine Metabols Negative, U Cannabinoids Screen Negative 04/27/18 23:25: Sodium 141, Potassium 3.6, Chloride 103, Carbon Dioxide 23, Anion Gap 18, BUN 13, Creatinine 0.9, Est GFR ( Amer) > 60, Est GFR (Non- Af Amer) > 60, Random Glucose 103, Calcium 10.1, Magnesium 2.1, Total Bilirubin 0.4, AST 44, ALT 49, Alkaline Phosphatase 82, Lactate Dehydrogenase 473, Total Creatine Kinase 371 H, CK-MB (CK-2) 2.0, CK-MB (CK-2) % Cancelled, Troponin I < 0.01, Total Protein 8.3, Albumin 5.0 H, Globulin 3.3, Albumin/Globulin Ratio 1.5 04/27/18 23:25: Urine Color Straw, Urine Appearance Clear, Urine pH 7.5, Ur Specific [place] 1.010, Urine Protein Negative, Urine Glucose (UA) Negative, Urine Ketones Negative, Urine Blood Negative, Urine Nitrate Negative, Urine Bilirubin Negative, Urine Urobilinogen 0.2, Ur Leukocyte Esterase Negative 04/27/18 23:25: WBC 9.6, RBC 4.65, Hgb 15.3, Hct 42.8, MCV 92.0 D, MCH 32.9, MCHC 35.7, RDW 12.5, Plt Count 218, MPV 10.1, Gran % 59.7, Lymph % (Auto) 33.6, [place] % (Auto) 4.7, Eos % (Auto) 1.7, Baso % (Auto) 0.3, Gran # 5.73, Lymph # ( Auto) 3.2, [place] # (Auto) 0.5, Eos # (Auto) 0.2, Baso # (Auto) 0.03 I have reviewed the lab results: Yes - RAD Interpretation Radiology Orders: 04/28/18 00:26 CHEST PORTABLE [RAD] Stat Heater Operator: ED Physician - EKG Interpretation Interpreted by ED Physician: Yes Type: 12 lead EKG - Medication Orders Current Medication Orders: Discontinued Medications Albuterol/Ipratropium (Duoneb 3 Mg/0.5 Mg (3 Ml) Ud) 3 ml IH STAT STA Stop: 04/27/18 23:32 Last Admin: 04/27/18 23:42 Dose: 3 ml Sodium Chloride (Sodium Chloride 0.9%) 1,000 mls @ 80 mls/hr IV .[id number] LAWSON Last Admin: 04/27/18 23:43 Dose: 80 mls/hr eMAR Start Stop Document 04/27/18 23:43 AD (Rec: 04/27/18 23:43 AD [id number]) Intravenous Solution Start Date 04/27/18 Start Time 23:43 Lorazepam (Ativan) 1 mg PO ONCE ONE PRN Reason: Protocol Stop: 04/28/18 02:41 Last Admin: 04/28/18 02:49 Dose: 1 mg Ondansetron HCl (Zofran Inj) 4 mg IVP STAT STA Stop: 04/27/18 22:58 Last Admin: 04/27/18 23:42 Dose: 4 mg IVP Administration Document 04/27/18 23:42 AD (Rec: 04/27/18 23:42 AD [id number]) Charges for Administration # of IVP Administrations 1 - Scribe Statement The provider has reviewed the documentation as recorded by the Stanley Martins Provider Scribe Attestation: All medical record entries made by the Scribe were at my direction and personally dictated by me. I have reviewed the chart and agree that the record accurately reflects my personal performance of the history, physical exam, medical decision making, and the department course for this patient. I have also personally directed, reviewed, and agree with the discharge instructions and disposition. Disposition/Present on Arrival - Present on Arrival Any Indicators Present on Arrival: No History of DVT/PE: No History of Uncontrolled Diabetes: No Urinary Catheter: No History of Decub. Ulcer: No History Surgical Site Infection Following: None - Disposition Have Diagnosis and Disposition been Completed?: Yes Diagnosis: Anxiety, Chest pain Disposition: HOME/ ROUTINE Disposition Time: 02:50 Condition: GOOD Discharge Instructions (ExitCare): Chest Pain (ED) Forms: [employer] ([place]ic)
[2018-04-27] MEDS ORDERED: Sodium Chloride 0.9% 1,000 ML IV SCH (23:00)
[2018-04-27] MEDS ORDERED: Albuterol-Ipratrop 3 mg / 0.5 (3 ml) UD IH STA (23:31)
[2018-04-27 23:48] LABS: BASO # 0.03 K/mm3 (0.0-2.0); BASO % 0.3 % (0.0-3.0); EOS # 0.2 (0.0-0.7); EOS % 1.7 % (1.5-5.0); GRAN # 5.73 (1.4-6.5); GRAN % 59.7 % (50.0-68.0); HEMOGLOBIN 15.3 g/dL (14.0-18.0); LYMPH # 3.2 (1.2-3.4); LYMPH % 33.6 % (22.0-35.0); MEAN CORPUSCULAR HEMOGLOBIN 32.9 pg (25.0-35.0); MEAN CORPUSCULAR HGB CONC 35.7 g/dl (31.0-37.0); MEAN PLATELET VOLUME 10.1 fl (7.0-11.0); MONO # 0.5 (0.1-0.6); MONO % 4.7 % (1.0-6.0); RBC 4.65 10^6/uL (3.5-6.1); RED CELL DISTRIBUTION WIDTH 12.5 % (11.5-14.5); WHITE BLOOD COUNT 9.6 10^3/ul (4.5-11.0)
[2018-04-27 23:49] LABS: PH,URINE 7.5 (4.7-8.0); URINE BILIRUBIN NEGATIVE (NEGATIVE); URINE BLOOD NEGATIVE (NEGATIVE); URINE GLUCOSE (UA) NEGATIVE (NEGATIVE); URINE LEUKOCYTE ESTERASE NEGATIVE Leu/uL (NEGATIVE); URINE PROTEIN NEGATIVE mg/dL (<30 mg/dL); URINE UROBILINOGEN 0.2 E.U./dL (<1 E.U./dL)
[2018-04-27 23:50] LABS: URINE APPEARANCE CLEAR (CLEAR); URINE COLOR STRAW (YELLOW)
[2018-04-28 00:09] LABS: TROPONIN I < 0.01 ng/mL
[2018-04-28 00:13] LABS: BENZODIAZEPINES, UR NEGATIVE (NEGATIVE)
[2018-04-28 00:25] LABS: ALB/GLOB RATIO 1.5 (1.1-1.8); ALT/SGPT 49 U/L (7-56); AST/SGOT 44 U/L (17-59); BARBITURATES, UR NEGATIVE (NEGATIVE); BLOOD UREA NITROGEN 13 mg/dL (7-21); CALCIUM 10.1 mg/dL (8.4-10.5); GFR AFRICAN-AMERICAN > 60; GFR NON-AFRICAN AMERICAN > 60; OPIATES, UR NEGATIVE (NEGATIVE); PHENCYCLIDINE, UR NEGATIVE (NEGATIVE)
[2018-04-28 03:47] VITALS: BP 135/75; PULSE 75; O2SAT 100
--- NOTE | 2018-04-28 09:36 | CARD ---
APPROVED REPORT EKG Measurement Heart [id number] <Conclusion> Normal sinus rhythm with sinus arrhythmia Incomplete right bundle branch block Borderline ECG
--- NOTE | 2018-04-28 09:49 | RAD ---
HISTORY: cp COMPARISON: 03/31/2018 FINDINGS: LUNGS: No active pulmonary disease. PLEURA: No significant pleural effusion identified, no pneumothorax apparent. CARDIOVASCULAR: Normal. OSSEOUS STRUCTURES: No significant abnormalities. VISUALIZED UPPER ABDOMEN: Normal. OTHER FINDINGS: None. IMPRESSION: No active disease.
== END 2018-04-28 02:50 | disposition home or self-care (01) ==
LOC: ED 21:41
DX: F41.9 Anxiety disorder, unspecified (principal); R07.9 Chest pain, unspecified; F19.10 Other psychoactive substance abuse, uncomplicated; F10.10 Alcohol abuse, uncomplicated
CPT/HCPCS: 71045; 80053; 80320; 80324; 80345; 80346; 80349; 80353; 80358; 80361; 81003; 82550; 82553; 83615; 83735; 83992; 84484; 85025; 93005; 96374; 99283; J2405; J7030

== ENCOUNTER 2018-05-13 13:04 | Emergency (ER) | payer OTHER ==
[2018-05-13 13:04] VITALS: BMI 27.3
[2018-05-13 13:26] LABS: BASO # 0.07 K/mm3 (0.0-2.0); BASO % 0.9 % (0.0-3.0); EOS # 0.2 (0.0-0.7); EOS % 2.8 % (1.5-5.0); GRAN # 2.93 (1.4-6.5); GRAN % 38.5 % (50.0-68.0); HEMOGLOBIN 15.7 g/dL (14.0-18.0); LYMPH % 51.8 % (22.0-35.0); MEAN CELL VOLUME 90.6 fl (80.0-105.0); MEAN CORPUSCULAR HEMOGLOBIN 32.6 pg (25.0-35.0); MEAN PLATELET VOLUME 9.8 fl (7.0-11.0); MONO # 0.5 (0.1-0.6); RBC 4.81 10^6/uL (3.5-6.1); RED CELL DISTRIBUTION WIDTH 12.5 % (11.5-14.5); WHITE BLOOD COUNT 7.6 10^3/ul (4.5-11.0)
--- NOTE | 2018-05-13 13:26 | ED PDOC ---
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 Patient notes associated shortness of breath and chest pain since this morning which he states he gets often. Patient finished ETOH detox program couple days ago. Patient notes he has experienced seizures before due to alcohol withdrawal. Patient notes he drank last night. Patient denies any fever, chills, nausea, vomiting, diarrhea, back pain, neck pain, headache, dizziness, or any other complaints. Time/Duration: Prior to Arrival Symptom Onset: Sudden Symptom Course: Unchanged Activities at Onset: Light Context: Home Past Medical History - Provider Review Nursing Documentation Reviewed: Yes - Past History Past History: No Previous (alcohol dependent) - Infectious Disease Hx of Infectious Diseases: None - Tetanus Immunization Tetanus Immunization: Unknown - Past Medical History Past Medical History: No Previous - HEENT Hx HEENT Disorder: No - Renal Hx Renal Disorder: No - Endocrine/Metabolic Hx Endocrine Disorders: No - Hematological/Oncological Hx Blood Disorders: No - Integumentary Hx Dermatological Disorder: No - Musculoskeletal/Rheumatological Hx Musculoskeletal Disorders: Yes Hx Fractures: Yes - Gastrointestinal Hx Gastrointestinal Disorders: No - Genitourinary/Gynecological Hx Genitourinary Disorders: No - Psychiatric Hx Psychophysiologic Disorder: Yes Hx Anxiety: Yes Hx Depression: Yes Hx Panic Disorder: Yes Hx Substance Use: Yes - Past Surgical History Past Surgical History: No Previous - Surgical History Hx Appendectomy: Yes Hx Musculoskeletal Surgery: Yes Hx Orthopedic Surgery: Yes - Anesthesia Hx Anesthesia: Yes Hx Anesthesia Reactions: No Hx Malignant Hyperthermia: No - Suicidal Assessment Feels Threatened In Home Enviroment: No Family/Social History - Physician Review Nursing Documentation Reviewed: Yes Family/Social History: Unknown Family HX Smoking Status: Heavy Smoker > 10 Cigarettes Daily Hx Alcohol Use: Yes Hx Substance Use: Yes Substance used: marijuana; ecstasy; ativan Hx Substance Use Treatment: No Allergies/Home Meds Allergies/Adverse Reactions: Allergies No Known Allergies Allergy (Verified 04/27/18 22:33) Home Medications: Home Meds Medication Instructions Recorded Confirmed cloNIDine [Catapres] 0.1 mg PO BID 04/27/18 05/13/18 hydrOXYzine HCl [Atarax] 50 mg PO TID 04/27/18 05/13/18 Review of Systems - Physician Review All systems were reviewed & negative as marked: Yes - Review of Systems Constitutional: Normal Eyes: Normal ENT: Normal Respiratory: SOB Cardiovascular: Chest Pain Gastrointestinal: Normal. absent: Abdominal Pain, Diarrhea, Nausea, Vomiting Genitourinary Male: Normal. absent: Dysuria, Frequency Musculoskeletal: Normal. absent: Back Pain, Neck Pain Skin: Normal. absent: Rash Neurological: Normal. absent: Headache, Dizziness Endocrine: Normal Hemo/Lymphatic: Normal Psychiatric: Normal Physical Exam - Physical Exam Narrative Physical Exam (Text): 05/13/18 13:26 Constitutional: Anxious. Head: Normocephalic. Atraumatic. Eyes: PERRL. ENT: Moist mucous membranes. Neck: Supple. Cardiovascular: Regular rate. Chest: No tenderness. Respiratory: Clear to auscultation bilaterally. GI: Soft. Nontender. Nondistended. Back: No CVA tenderness. Musculoskeletal: No tenderness or swelling of extremities. Skin: Bilateral forearm lacerations (different ages) Neurologic: Alert, no focal deficit. Psychiatric: Anxious. Intoxicated. Vital Signs Temp Pulse Resp BP Pulse Ox 05/13/18 16:16 98.0 F 87 22 123/74 98 05/13/18 13:20 98.4 F 93 H 18 138/81 97 Medical Decision Making ED Course and Treatment: 05/13/18 13:29 Impression: 27 year old male presents to the emergency department complaining of shortness of breath, chest pain, and a seizure this morning. Plan: -- Venous Blood Gas -- Labs -- Troponin -- Chest X-ray -- Urine Culture -- Urinalysis -- Reassess and disposition Progress Notes: EKG reviewed, shows NSR at [address]/T wave changes. 05/13/18 14:47 Chest X-ray reviewed, shows: LUNGS: The lungs are well inflated and clear. PLEURA: No significant pleural effusion identified, no pneumothorax apparent. CARDIOVASCULAR: Normal. OSSEOUS STRUCTURES: No significant abnormalities. VISUALIZED UPPER ABDOMEN: Normal. OTHER FINDINGS: None. IMPRESSION: No active pulmonary disease. 05/13/18 17:45 Patient observed in ED for 5 hours. Patient was calm, no tachycardic or hypertension, no tremor. Patient wishes to go to detox. I called [facility], gave me phone number for patient to speak to screener and get PM appointment tomorrow. I provided paper work indicating that patient is medically clear. Patient was discharged from ED with his mother. - Lab Interpretations Lab Results: 05/13/18 13:20 05/13/18 13:20 Lab Results 05/13/18 14:55: Urine Opiates Screen Negative, Urine Methadone Screen Negative, Ur Barbiturates Screen Negative, Ur Phencyclidine Scrn Negative, Ur Amphetamines Screen Negative, U Benzodiazepines Scrn Negative, U Oth Cocaine Metabols Negative, U Cannabinoids Screen Negative 05/13/18 14:55: Urine Color Yellow, Urine Appearance Clear, Urine pH 6.0, Ur Specific [place] <= 1.005, Urine Protein Negative, Urine Glucose (UA) Negative, Urine Ketones Negative, Urine Blood Negative, Urine Nitrate Negative, Urine Bilirubin Negative, Urine Urobilinogen 0.2, Ur Leukocyte Esterase Negative 05/13/18 13:21: pO2 227 H, VBG pH 7.40, VBG pCO2 37.0 L, VBG HCO3 22.9, VBG Total CO2 24.0, VBG O2 Sat (Calc) 97.9 H, VBG Base Excess -1.5 L, VBG Potassium 4.4, Glucose 105, Lactate 1.7, FiO2 21.0, Sodium 144.0, Chloride 115.0 H, Venous Blood Potassium 4.4 05/13/18 13:20: Alcohol, Quantitative 317 H* 05/13/18 13:20: Salicylates < 1 L, Acetaminophen < 10.0 L 05/13/18 13:20: Sodium 148, Potassium 4.7, Chloride 112 H, Carbon Dioxide 17 L, Anion Gap 24 H, BUN 18, Creatinine 0.8, Est GFR ( Amer) > 60, Est GFR ( Non-Af Amer) > 60, Random Glucose 106, Calcium 9.2, Total Bilirubin 0.3, AST 49 , ALT 99 H, Alkaline Phosphatase 81, Total Creatine Kinase 361 H, CK-MB (CK-2) 1.8, CK-MB (CK-2) % Cancelled, Troponin I 0.01, NT-Pro-B Natriuret Pep 11.1, Total Protein 8.0, Albumin 4.7, Globulin 3.3, Albumin/Globulin Ratio 1.4, Lipase 51 05/13/18 13:20: PT 10.8, INR 0.94, APTT 29.5 05/13/18 13:20: WBC 7.6 D, RBC 4.81, Hgb 15.7, Hct 43.6, MCV 90.6, MCH 32.6, MCHC 36.0, RDW 12.5, Plt Count 219, MPV 9.8, Gran % 38.5 L, Lymph % (Auto) 51.8 H, O[place] % (Auto) 6.0, Eos % (Auto) 2.8, Baso % (Auto) 0.9, Gran # 2.93, Lymph # (Auto) 4.0 H, [place] # (Auto) 0.5, Eos # (Auto) 0.2, Baso # (Auto) 0.07 - RAD Interpretation Radiology Orders: 05/13/18 13:16 CHEST PORTABLE [RAD] Stat - Medication Orders Current Medication Orders: Discontinued Medications Chlordiazepoxide (Librium) 25 mg PO STAT STA PRN Reason: Protocol Stop: 05/13/18 17:26 Ondansetron HCl (Zofran Inj) 8 mg IVP STAT STA Stop: 05/13/18 17:25 - Scribe Statement The provider has reviewed the documentation as recorded by the Scribe Batool Luna All medical record entries made by the Scribe were at my direction and personally dictated by me. I have reviewed the chart and agree that the record accurately reflects my personal performance of the history, physical exam, medical decision making, and the department course for this patient. I have also personally directed, reviewed, and agree with the discharge instructions and disposition. Disposition/Present on Arrival - Present on Arrival Any Indicators Present on Arrival: No History of DVT/PE: No History of Uncontrolled Diabetes: No Urinary Catheter: No History Surgical Site Infection Following: None - Disposition Have Diagnosis and Disposition been Completed?: Yes Diagnosis: Alcohol intoxication Disposition: HOME/ ROUTINE Disposition Time: 17:22 Patient Plan: Discharge Patient Problems: Current Active Problems Problem Status Onset Alcohol intoxication Acute Condition: STABLE Discharge Instructions (ExitCare): Alcohol Abuse and Alcoholism (DC) Additional Instructions: Chidi Hopper has been evaluated at [facility] Emergency Department on 05/13/2018 and was discharged from the Emergency Department at 5:23 PM. He is medically clear for admission or participation with a detox center or rehab. Prescriptions: chlordiazePOXIDE [Chlordiazepoxide HCl] 25 mg PO Q8H #3 cap Ondansetron ODT [Zofran ODT] 4 mg PO Q8 #12 odt
[2018-05-13 13:32] LABS: INR 0.94 (0.93-1.08); PARTIAL THROMBOPLASTIN TIME 29.5 Seconds (25.1-36.5); PROTHROMBIN TIME 10.8 SECONDS (9.4-12.5)
[2018-05-13 13:33] LABS: ACETAMINOPHEN < 10.0 ug/ml (10.0-20.0); SALICYLATE < 1 mg/dL (2.0-20.0)
[2018-05-13 13:41] LABS: ALB/GLOB RATIO 1.4 (1.1-1.8); ALBUMIN 4.7 g/dL (3.0-4.8); ALT/SGPT 99 U/L (7-56); AST/SGOT 49 U/L (17-59); BLOOD UREA NITROGEN 18 mg/dL (7-21); CALCIUM 9.2 mg/dL (8.4-10.5); GFR AFRICAN-AMERICAN > 60; GFR NON-AFRICAN AMERICAN > 60; LIPASE 51 U/L (23-300)
--- NOTE | 2018-05-13 14:04 | RAD ---
HISTORY: dyspnea COMPARISON: 04/28/2018. FINDINGS: LUNGS: The lungs are well inflated and clear. PLEURA: No significant pleural effusion identified, no pneumothorax apparent. CARDIOVASCULAR: Normal. OSSEOUS STRUCTURES: No significant abnormalities. VISUALIZED UPPER ABDOMEN: Normal. OTHER FINDINGS: None. IMPRESSION: No active pulmonary disease.
[2018-05-13 14:30] LABS: B-TYPE NATRIURETIC PEPTIDE 11.1 pg/mL (0-450); CK-MB 1.8 ng/mL (0.0-3.6); TROPONIN I 0.01 ng/mL
[2018-05-13 14:46] LABS: VENOUS BLOOD GAS BASE EXCESS -1.5 mmol/L (0.0-2.0); VENOUS BLOOD GAS PO2 227 mm/Hg (30-55)
[2018-05-13 15:08] LABS: URINE BILIRUBIN NEGATIVE (NEGATIVE); URINE BLOOD NEGATIVE (NEGATIVE); URINE GLUCOSE (UA) NEGATIVE (NEGATIVE); URINE LEUKOCYTE ESTERASE NEGATIVE Leu/uL (NEGATIVE); URINE PROTEIN NEGATIVE mg/dL (<30 mg/dL); URINE UROBILINOGEN 0.2 E.U./dL (<1 E.U./dL)
[2018-05-13 15:09] LABS: URINE COLOR YELLOW (YELLOW)
[2018-05-13 15:10] LABS: URINE APPEARANCE CLEAR (CLEAR)
[2018-05-13 15:25] LABS: BENZODIAZEPINES, UR NEGATIVE (NEGATIVE)
[2018-05-13 15:26] LABS: BARBITURATES, UR NEGATIVE (NEGATIVE); OPIATES, UR NEGATIVE (NEGATIVE); PHENCYCLIDINE, UR NEGATIVE (NEGATIVE)
[2018-05-13 16:17] VITALS: BP 123/74
[2018-05-13 18:21] VITALS: PULSE 89; RESP 18; TEMP 98.1; O2SAT 97
--- NOTE | 2018-05-14 08:48 | CARD ---
APPROVED REPORT EKG Measurement Heart [id number] [id number] <Conclusion> Normal sinus rhythm RVCD No change
== END 2018-05-13 18:21 | disposition home or self-care (01) ==
LOC: ED 13:04
DX: F10.129 Alcohol abuse with intoxication, unspecified (principal); F17.210 Nicotine dependence, cigarettes, uncomplicated
CPT/HCPCS: 71045; 80053; 80320; 80324; 80329; 80345; 80346; 80349; 80353; 80358; 80361; 81003; 82550; 82553; 82803; 83690; 83880; 83992; 84484; 85025; 85610; 85730; 87086; 93005; 96374; 99285; J2405

== ENCOUNTER 2018-05-13 18:48 | Emergency (ER) | payer OTHER ==
[2018-05-13 18:48] VITALS: BMI 27.3
[2018-05-13 19:32] VITALS: BP 127/84; RESP 18; TEMP 98.2
--- NOTE | 2018-05-13 19:49 | ED PDOC ---
Arrival/HPI - General Chief Complaint: Medical Clearance Time Seen by Provider: 05/13/18 18:52 - History of Present Illness Narrative History of Present Illness (Text): 27 y/o M just discharged from the ED minutes ago returns. See previous chart for further information. Patient exited the ED, felt that it was hot ( temperature 82 degrees and high humidity 79%, feels like 91 degrees), felt short of breath, and vomited once and came back to ED. Now in ED stretcher, patient states he feels much better and symptoms are gone. Past Medical History - Past History Past History: No Previous (alcohol dependent) - Infectious Disease Hx of Infectious Diseases: None - Tetanus Immunization Tetanus Immunization: Unknown - Past Medical History Past Medical History: No Previous - HEENT Hx HEENT Disorder: No - Renal Hx Renal Disorder: No - Endocrine/Metabolic Hx Endocrine Disorders: No - Hematological/Oncological Hx Blood Disorders: No - Integumentary Hx Dermatological Disorder: No - Musculoskeletal/Rheumatological Hx Musculoskeletal Disorders: Yes Hx Fractures: Yes - Gastrointestinal Hx Gastrointestinal Disorders: No - Genitourinary/Gynecological Hx Genitourinary Disorders: No - Psychiatric Hx Psychophysiologic Disorder: Yes Hx Anxiety: Yes Hx Depression: Yes Hx Panic Disorder: Yes Hx Substance Use: Yes - Past Surgical History Past Surgical History: No Previous - Surgical History Hx Appendectomy: Yes Hx Musculoskeletal Surgery: Yes Hx Orthopedic Surgery: Yes - Anesthesia Hx Anesthesia: Yes Hx Anesthesia Reactions: No Hx Malignant Hyperthermia: No - Suicidal Assessment Feels Threatened In Home Enviroment: No Family/Social History Family/Social History: No Known Family HX Smoking Status: Heavy Smoker > 10 Cigarettes Daily Hx Alcohol Use: Yes Hx Substance Use: Yes Substance used: marijuana; ecstasy; ativan Hx Substance Use Treatment: No Allergies/Home Meds Allergies/Adverse Reactions: Allergies No Known Allergies Allergy (Verified 04/27/18 22:33) Home Medications: Home Meds Medication Instructions Recorded Confirmed cloNIDine [Catapres] 0.1 mg PO BID 04/27/18 05/13/18 hydrOXYzine HCl [Atarax] 50 mg PO TID 04/27/18 05/13/18 Review of Systems - Review of Systems Constitutional: absent: Fevers Cardiovascular: absent: Chest Pain Physical Exam - Physical Exam Narrative Physical Exam (Text): Gen: NAD Head: NC Eyes: No icterus ENT: MMM CV: Regular rate Lungs: No accessory muscle use Extremities: No tremor. No edema Neuro: Alert Vital Signs Temp Pulse Resp BP Pulse Ox 05/13/18 18:48 98.2 F 102 H 18 127/84 95 Medical Decision Making ED Course and Treatment: I spent a significant amount of time with patient counseling on alcohol use and answering questions about seizures. Patient is comfortable to leave, will be taken to his home by his mother. - Medication Orders Current Medication Orders: Chlordiazepoxide (Librium) 25 mg PO STAT STA PRN Reason: Protocol Stop: 05/13/18 19:45 Metoclopramide HCl (Reglan) 10 mg PO STAT STA Stop: 05/13/18 19:45 Disposition/Present on Arrival - Present on Arrival Any Indicators Present on Arrival: No History of DVT/PE: No History of Uncontrolled Diabetes: No Urinary Catheter: No History of Decub. Ulcer: No History Surgical Site Infection Following: None - Disposition Have Diagnosis and Disposition been Completed?: Yes Diagnosis: Shortness of breath, Vomiting Disposition: HOME/ ROUTINE Disposition Time: 19:45 Patient Plan: Discharge Condition: STABLE Discharge Instructions (ExitCare): Alcohol Withdrawal
[2018-05-13 21:00] VITALS: PULSE 95; O2SAT 97
== END 2018-05-13 20:17 | disposition home or self-care (01) ==
LOC: ED 18:48
DX: R06.02 Shortness of breath (principal); R11.10 Vomiting, unspecified

== ENCOUNTER 2018-05-21 23:32 | Emergency (ER) | payer OTHER ==
[2018-05-21 23:33] VITALS: BMI 27.3
[2018-05-21 23:48] VITALS: TEMP 98.1
--- NOTE | 2018-05-22 00:03 | ED PDOC ---
Arrival/HPI - General Chief Complaint: Alcohol Ingestion Time Seen by Provider: 05/21/18 23:54 Historian: Patient - History of Present Illness Narrative History of Present Illness (Text): 05/22/18 00:09 A 27 year old male, whose past medical history includes ETOH abuse, anxiety, depression, and withdrawals, presents to the emergency department for intoxication. Patient reports he was in [facility] 2 days ago and was told he may have possible heart condition. Admits to drinking, according to patient, 1 pint. Notes also experiencing shortness of breath and chest pain as well. Patient denies other complaints at this time. PMD: Dr. Pichardo Past Medical History - Provider Review Nursing Documentation Reviewed: Yes - Past History Past History: No Previous (alcohol dependent) - Infectious Disease Hx of Infectious Diseases: None - Tetanus Immunization Tetanus Immunization: Unknown - Past Medical History Past Medical History: No Previous - HEENT Hx HEENT Disorder: No - Renal Hx Renal Disorder: No - Endocrine/Metabolic Hx Endocrine Disorders: No - Hematological/Oncological Hx Blood Disorders: No - Integumentary Hx Dermatological Disorder: No - Musculoskeletal/Rheumatological Hx Musculoskeletal Disorders: Yes Hx Fractures: Yes - Gastrointestinal Hx Gastrointestinal Disorders: No - Genitourinary/Gynecological Hx Genitourinary Disorders: No - Psychiatric Hx Psychophysiologic Disorder: Yes Hx Anxiety: Yes Hx Depression: Yes Hx Panic Disorder: Yes Hx Substance Use: Yes - Past Surgical History Past Surgical History: No Previous - Surgical History Hx Appendectomy: Yes Hx Musculoskeletal Surgery: Yes Hx Orthopedic Surgery: Yes - Anesthesia Hx Anesthesia: Yes Hx Anesthesia Reactions: No Hx Malignant Hyperthermia: No - Suicidal Assessment Feels Threatened In Home Enviroment: No Family/Social History - Physician Review Nursing Documentation Reviewed: Yes Family/Social History: No Known Family HX Smoking Status: Heavy Smoker > 10 Cigarettes Daily Hx Alcohol Use: Yes Hx Substance Use: Yes Substance used: marijuana; ecstasy; ativan Hx Substance Use Treatment: No Allergies/Home Meds Allergies/Adverse Reactions: Allergies No Known Allergies Allergy (Verified 04/27/18 22:33) Home Medications: Home Meds Medication Instructions Recorded Confirmed No Known Home Med 05/22/18 05/22/18 Review of Systems - Physician Review All systems were reviewed & negative as marked: Yes - Review of Systems Respiratory: SOB Cardiovascular: Chest Pain Psychiatric: Other (intoxicated) Physical Exam Vital Signs Reviewed: Yes Vital Signs Temp Pulse Resp BP Pulse Ox 05/22/18 03:20 98.1 F 88 18 138/88 100 05/21/18 23:41 98.1 F 101 H 17 146/96 H 97 Temperature: Afebrile Blood Pressure: Normal Pulse: Regular Respiratory Rate: Normal Appearance: Positive for: Other (intoxicated) Pain Distress: None Mental Status: Positive for: Alert and Oriented X 3, other (hyperventilating) - Systems Exam Head: Present: Atraumatic, Normocephalic Pupils: Present: PERRL Extroacular Muscles: Present: EOMI Conjunctiva: Present: Normal Mouth: Present: Moist Mucous Membranes Neck: Present: Normal Range of Motion Respiratory/Chest: Present: Clear to Auscultation, Good Air Exchange. No: Respiratory Distress, Accessory Muscle Use Cardiovascular: Present: Regular Rate and Rhythm, Normal S1, S2. No: Murmurs Abdomen: No: Tenderness, Distention, Peritoneal Signs Back: Present: Normal Inspection Upper Extremity: Present: Normal Inspection. No: Cyanosis, Edema Lower Extremity: Present: Normal Inspection. No: Edema Neurological: Present: GCS=15, CN II-XII Intact, Speech Normal Skin: Present: Warm, Dry, Normal Color. No: Rashes Psychiatric: Present: Alert, Oriented x 3, Normal Insight, Normal Concentration , Anxious, Intoxicated, Other (hyperventilating) Medical Decision Making ED Course and Treatment: 05/22/18 00:10 Impression: 27 year old male with intoxication, chest pain, and shortness of breath. Plan: -- Chest X-ray -- Reassess and disposition Prior Visits: Notes and results from previous visits were reviewed. Patient last seen here in the emergency room on 05/13/2018 for seizure. Patient was discharged home. Progress Notes: 05/22/18 02:47 Chest X-ray shows no acute disease. Patient became progressively more awake and alert throughout ED course. At time of discharge, patient was AAOx3 and ambulating without difficulty, completely back to baseline. Reports no shortness of breath, he is no longer hyperventilating. CXR results discussed. Patient states that he wants detox, information was provided. He has Librium at home, but would feel more comfortable receiving a dose here prior to leaving the ED. 50mg Librium PO ordered. - RAD Interpretation Radiology Orders: 05/22/18 00:00 CXR [CHEST PORTABLE] [RAD] Stat - Medication Orders Current Medication Orders: Discontinued Medications Chlordiazepoxide (Librium) 50 mg PO STAT STA PRN Reason: Protocol Stop: 05/22/18 03:21 Last Admin: 05/22/18 03:34 Dose: 50 mg - Scribe Statement The provider has reviewed the documentation as recorded by the Stanley Brian Provider Scribe Provider Scribe Attestation: All medical record entries made by the Stanley were at my direction and personally dictated by me. I have reviewed the chart and agree that the record accurately reflects my personal performance of the history, physical exam, medical decision making, and the department course for this patient. I have also personally directed, reviewed, and agree with the discharge instructions and disposition. Disposition/Present on Arrival - Present on Arrival Any Indicators Present on Arrival: No History of DVT/PE: No History of Uncontrolled Diabetes: No Urinary Catheter: No History of Decub. Ulcer: No History Surgical Site Infection Following: None - Disposition Have Diagnosis and Disposition been Completed?: Yes Diagnosis: Alcohol intoxication Disposition: HOME/ ROUTINE Disposition Time: 03:36 Condition: GOOD Discharge Instructions (ExitCare): Alcohol Abuse and Alcoholism (DC) Referrals: Sheela Puga MD [Primary Care Provider] - Follow up with primary Forms: Dagne Dover (Slovenian)
[2018-05-22 03:20] VITALS: BP 138/88; PULSE 88; RESP 18; O2SAT 100
--- NOTE | 2018-05-22 08:36 | RAD ---
Date of service: 05/22/2018 HISTORY: dyspnea COMPARISON: 05/13/2018 FINDINGS: LUNGS: No active pulmonary disease. PLEURA: No significant pleural effusion identified, no pneumothorax apparent. CARDIOVASCULAR: Normal. OSSEOUS STRUCTURES: No significant abnormalities. VISUALIZED UPPER ABDOMEN: Normal. OTHER FINDINGS: None. IMPRESSION: No active disease.
== END 2018-05-22 03:36 | disposition home or self-care (01) ==
LOC: ED 23:32
DX: F10.129 Alcohol abuse with intoxication, unspecified (principal); F17.210 Nicotine dependence, cigarettes, uncomplicated

== ENCOUNTER 2018-05-22 05:03 | Emergency (ER) | payer OTHER ==
[2018-05-22 05:07] VITALS: BMI 23.6
[2018-05-22 05:17] VITALS: RESP 18; O2SAT 98
--- NOTE | 2018-05-22 05:19 | ED PDOC ---
Arrival/HPI - General Chief Complaint: Alcohol Ingestion Time Seen by Provider: 05/22/18 05:15 - History of Present Illness Narrative History of Present Illness (Text): 05/22/18 05:17 A 27 year old male, whose past medical history includes EtOH abuse, anxiety, and depression, brought in by ambulance and presents to the emergency department complaining of convulsions since arriving home. Patient was just discharged tonight for intoxication and returns to the ER for evaluation. He is capable of ambulating without difficulty and states he has not consumed any alcohol since being discharged from the ER. Patient denies any new complaints at this time. Also, it is mentioned by medics there have been no seizure activity noted. No PMD Past Medical History - Provider Review Nursing Documentation Reviewed: Yes - Past History Past History: No Previous (alcohol dependent) - Infectious Disease Hx of Infectious Diseases: None - Tetanus Immunization Tetanus Immunization: Unknown - Past Medical History Past Medical History: No Previous - HEENT Hx HEENT Disorder: No - Renal Hx Renal Disorder: No - Endocrine/Metabolic Hx Endocrine Disorders: No - Hematological/Oncological Hx Blood Disorders: No - Integumentary Hx Dermatological Disorder: No - Musculoskeletal/Rheumatological Hx Musculoskeletal Disorders: Yes Hx Fractures: Yes - Gastrointestinal Hx Gastrointestinal Disorders: No - Genitourinary/Gynecological Hx Genitourinary Disorders: No - Psychiatric Hx Psychophysiologic Disorder: Yes Hx Anxiety: Yes Hx Depression: Yes Hx Panic Disorder: Yes Hx Substance Use: Yes - Past Surgical History Past Surgical History: No Previous - Surgical History Hx Appendectomy: Yes Hx Musculoskeletal Surgery: Yes Hx Orthopedic Surgery: Yes - Anesthesia Hx Anesthesia: Yes Hx Anesthesia Reactions: No Hx Malignant Hyperthermia: No - Suicidal Assessment Feels Threatened In Home Enviroment: No Family/Social History - Physician Review Nursing Documentation Reviewed: Yes Family/Social History: No Known Family HX Smoking Status: Heavy Smoker > 10 Cigarettes Daily Hx Alcohol Use: Yes Frequency of alcohol use: Daily Hx Substance Use: Yes Substance used: marijuana; ecstasy; ativan Hx Substance Use Treatment: No Allergies/Home Meds Allergies/Adverse Reactions: Allergies No Known Allergies Allergy (Verified 05/22/18 05:10) Home Medications: Home Meds Medication Instructions Recorded Confirmed No Known Home Med 05/22/18 05/22/18 Review of Systems - Physician Review All systems were reviewed & negative as marked: Yes - Review of Systems Constitutional: absent: Fevers, Night Sweats Respiratory: absent: SOB, Cough Cardiovascular: absent: Chest Pain Gastrointestinal: absent: Abdominal Pain, Diarrhea, Nausea, Vomiting Neurological: Other (convulsions) Psychiatric: absent: Anxiety, Depression, Suicidal Ideation Physical Exam Vital Signs Reviewed: Yes Vital Signs Temp Pulse Resp BP Pulse Ox 05/22/18 05:17 98.3 F 100 H 18 128/77 98 05/22/18 05:07 98 F 94 H 17 134/77 96 Temperature: Afebrile Blood Pressure: Normal Pulse: Regular Respiratory Rate: Normal Appearance: Positive for: Well-Appearing, Non-Toxic, Comfortable Pain Distress: None Mental Status: Positive for: Alert and Oriented X 3 - Systems Exam Head: Present: Atraumatic, Normocephalic Pupils: Present: PERRL Extroacular Muscles: Present: EOMI Conjunctiva: Present: Normal Mouth: Present: Moist Mucous Membranes Neck: Present: Normal Range of Motion Respiratory/Chest: Present: Clear to Auscultation, Good Air Exchange. No: Respiratory Distress, Accessory Muscle Use Cardiovascular: Present: Regular Rate and Rhythm, Normal S1, S2. No: Murmurs Abdomen: No: Tenderness, Distention, Peritoneal Signs Back: Present: Normal Inspection Upper Extremity: Present: Normal Inspection. No: Cyanosis, Edema Lower Extremity: Present: Normal Inspection. No: Edema Neurological: Present: GCS=15, CN II-XII Intact, Speech Normal Skin: Present: Warm, Dry, Normal Color. No: Rashes Psychiatric: Present: Alert, Oriented x 3, Normal Insight, Normal Concentration Medical Decision Making ED Course and Treatment: 05/22/18 05:18 Impression: 27 year old male with convulsions. No acute findings on physical examination. Plan: -- Reassess and disposition Prior Visits: Notes and results from previous visits were reviewed. Patient was last seen in the emergency department on , where he was just discharged earlier tonight for intoxication. Progress Notes: Patient hostile throughout ED course, asking for medics' and magnetic prospecting supervisor' badge numbers , and for RN's name, states "I'm going to report you" and threatens to get staff fired. Meanwhile patient is ambulating throughout the ED with no difficulty. At one point he began shaking in his stretcher, however he was able to fully have a conversation during this shaking episode. Patient observed and was stable, was eventually discharged home. [facility]. Advised following up with getting into detox. - Scribe Statement The provider has reviewed the documentation as recorded by the Stanley Brian Provider Scribe Attestation: All medical record entries made by the Scribe were at my direction and personally dictated by me. I have reviewed the chart and agree that the record accurately reflects my personal performance of the history, physical exam, medical decision making, and the department course for this patient. I have also personally directed, reviewed, and agree with the discharge instructions and disposition. Disposition/Present on Arrival - Present on Arrival Any Indicators Present on Arrival: No History of DVT/PE: No History of Uncontrolled Diabetes: No Urinary Catheter: No History of Decub. Ulcer: No History Surgical Site Infection Following: None - Disposition Have Diagnosis and Disposition been Completed?: Yes Diagnosis: ETOH abuse Disposition: HOME/ ROUTINE Disposition Time: 06:00 Patient Problems: Current Active Problems Problem Status Onset Alcohol abuse Chronic Condition: GOOD Discharge Instructions (ExitCare): Alcohol Abuse and Alcoholism (DC) Additional Instructions: KYAW ZURITA, thank you for letting us take care of you today. Your provider was Siri Hammond MD and you were treated for ETOH. The emergency medical care you received today was directed at your acute symptoms. If you were prescribed any medication, please fill it and take as directed. It may take several days for your symptoms to resolve. Return to the Emergency Department if your symptoms worsen, do not improve, or if you have any other problems. Please contact your doctor or call one of the physicians/clinics you have been referred to that are listed on the Patient Visit Information form that is included in your discharge packet. Bring any paperwork you were given at discharge with you along with any medications you are taking to your follow up visit. Our treatment cannot replace ongoing medical care by a primary care provider outside of the emergency department. Thank you for allowing the [facility] team to be part of your care today. If you had an X-Ray or CT scan: A Radiologist will review the ED reading if any change in treatment is needed we will contact you. If you had a blood, urine, or wound culture: It will take several days for the results, if any change in treatment is needed we will contact you. If you had an STI test: It will take 48 hours for the results. Please call after 1 week if you have not heard back. Referrals: Sheela Puga MD [Primary Care Provider] - Follow up with primary Forms: [employer] (Macanese)
[2018-05-22 07:18] VITALS: BP 130/72; PULSE 89; TEMP 98.6
== END 2018-05-22 06:45 | disposition home or self-care (01) ==
LOC: ED 05:03
DX: F10.10 Alcohol abuse, uncomplicated (principal)

== ENCOUNTER 2018-08-30 07:10 | Emergency (ER) | payer OTHER ==
[2018-08-30 07:25] VITALS: BMI 28.3
[2018-08-30 07:28] VITALS: RESP 18; TEMP 97.5
[2018-08-30] MEDS ORDERED: Sodium Chloride 0.9% 1,000 ML IV STA (07:35)
--- NOTE | 2018-08-30 08:02 | ED PDOC ---
Arrival/HPI - General Chief Complaint: Substance Abuse Time Seen by Provider: 08/30/18 07:17 Historian: Patient - History of Present Illness Narrative History of Present Illness (Text): 08/30/18 07:30 A 27 year old male, whose past medical history includes EtOH abuse, anxiety, and depression, who presents to the Emergency department complaining of having signs of "EtOH withdrawal" reports last drink 10 pm Patient denies any other complaints. 08/30/18 12:06 Time/Duration: Other (Patient states he drank 2 pints of beer last night) Symptom Onset: Sudden Symptom Course: Unchanged Activities at Onset: Other (EtOH consumption) Past Medical History - Provider Review Nursing Documentation Reviewed: Yes - Past History Past History: No Previous (alcohol dependent) - Infectious Disease Hx of Infectious Diseases: None - Tetanus Immunization Tetanus Immunization: Unknown - Past Medical History Past Medical History: No Previous - Cardiac Hx Cardiac Disorders: No - Pulmonary Hx Respiratory Disorders: No - Neurological Hx Neurological Disorder: No - HEENT Hx HEENT Disorder: No - Renal Hx Renal Disorder: No - Endocrine/Metabolic Hx Endocrine Disorders: No - Hematological/Oncological Hx Blood Disorders: No - Integumentary Hx Dermatological Disorder: No - Musculoskeletal/Rheumatological Hx Musculoskeletal Disorders: Yes Hx Fractures: Yes - Gastrointestinal Hx Gastrointestinal Disorders: No - Genitourinary/Gynecological Hx Genitourinary Disorders: No - Psychiatric Hx Psychophysiologic Disorder: Yes Hx Anxiety: Yes Hx Depression: Yes Hx Panic Disorder: Yes Hx Substance Use: Yes - Past Surgical History Past Surgical History: No Previous - Surgical History Other/Comment: 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12 - Anesthesia Hx Anesthesia: Yes Hx Anesthesia Reactions: No Hx Malignant Hyperthermia: No - Suicidal Assessment Feels Threatened In Home Enviroment: No Family/Social History - Physician Review Nursing Documentation Reviewed: Yes Family/Social History: No Known Family HX Smoking Status: Heavy Smoker > 10 Cigarettes Daily Hx Alcohol Use: Yes Hx Substance Use: Yes Substance used: marijuana; ecstasy; ativan Hx Substance Use Treatment: No Allergies/Home Meds Allergies/Adverse Reactions: Allergies No Known Allergies Allergy (Verified 05/22/18 05:10) Home Medications: Home Meds Medication Instructions Recorded Confirmed RX: No Known Home Med 05/22/18 08/04/18 Review of Systems - Physician Review All systems were reviewed & negative as marked: Yes - Review of Systems Constitutional: Other (Patient complaining of signs of EtOH withdrawal ). absent: Normal Physical Exam Vital Signs Reviewed: Yes Vital Signs Temp Pulse Resp BP Pulse Ox 08/30/18 07:24 97.5 F L 117 H 18 143/89 100 Temperature: Afebrile Blood Pressure: Normal Pulse: Tachycardic (at 117) Respiratory Rate: Normal Appearance: Positive for: Well-Appearing, Non-Toxic Pain Distress: None Mental Status: Positive for: Alert and Oriented X 3 - Systems Exam Head: Present: Atraumatic, Normocephalic Pupils: Present: PERRL Extroacular Muscles: Present: EOMI Conjunctiva: Present: Normal Mouth: Present: Moist Mucous Membranes Neck: Present: Normal Range of Motion Respiratory/Chest: Present: Clear to Auscultation, Good Air Exchange. No: Respiratory Distress, Accessory Muscle Use Cardiovascular: Present: Regular Rate and Rhythm, Normal S1, S2. No: Murmurs Abdomen: No: Tenderness, Distention, Peritoneal Signs Back: Present: Normal Inspection Upper Extremity: Present: Normal Inspection. No: Cyanosis, Edema Lower Extremity: Present: Normal Inspection. No: Edema Neurological: Present: GCS=15, CN II-XII Intact, Speech Normal Skin: Present: Warm, Dry, Normal Color. No: Rashes Psychiatric: Present: Alert, Oriented x 3, Normal Insight, Normal Concentration Medical Decision Making ED Course and Treatment: 08/30/18 07:30 Impression: A 27 year old male who presents to the Emergency department complaining of having "signs of EtOH withdrawal" . Differential Diagnosis included but are not limited to: ro w/d Plan: -- EKG -- Acetaminophen -- Alcohol Serum -- Comp Metabolic Panel -- Drug Screen, Urine -- Magnesium -- Salicylate -- CBC (with differential) -- Librium 50mg PO -- IV fluids -- Urinalysis -- Reassess and disposition Prior Visits: Notes and results from previous visits were reviewed. Patient was last seen in the emergency department on 05/22/18 for convulsions since arriving home. Patient was just discharged that night for intoxication and returned to the ER for evaluation. Patient was discharged home in good condition with diagnosis of EtOH abuse. Progress Notes: 08/30/18 09:45 Seen by line assembly utility worker for evaluation for detox. clinically EtOh is elevated. No evidence of EtOH withdrawal. Patient is refusing transfer to [facility]. 08/30/18 12:06 etoh on arrival 215. pt actively intoxicated elevatedetoh no e/o of wdas pt not in active w/d at this time, offered detox bed. pt seen by line assembly utility worker, now refuses detox. observed 3 hours clinically sober. pt states he moriah follow up at other detox sites. 08/30/18 17:46 - EKG Interpretation EKG Interpretation (Text): 08/30/18 07:54 EKG: Ordered, reviewed, and independently interpreted the EKG. Rate : 94 BPM Interpretation : Normal Sinus Rhythm. Incomplete right bundle branch block. Interpreted by ED Physician: Yes Type: 12 lead EKG - Medication Orders Current Medication Orders: Sodium Chloride (Sodium Chloride 0.9%) 1,000 mls @ 999 mls/hr IV .[id number] STA Stop: 08/30/18 08:35 Discontinued Medications Chlordiazepoxide (Librium) 50 mg PO STAT STA; Protocol Stop: 08/30/18 07:35 - Scribe Statement The provider has reviewed the documentation as recorded by the Scribe Sharlene Bynum All medical record entries made by the Scribe were at my direction and personally dictated by me. I have reviewed the chart and agree that the record accurately reflects my personal performance of the history, physical exam, medical decision making, and the department course for this patient. I have also personally directed, reviewed, and agree with the discharge instructions and disposition. Disposition/Present on Arrival - Present on Arrival Any Indicators Present on Arrival: No History of DVT/PE: No History of Uncontrolled Diabetes: No Urinary Catheter: No History of Decub. Ulcer: No History Surgical Site Infection Following: None - Disposition Have Diagnosis and Disposition been Completed?: Yes Diagnosis: Alcohol intoxication Disposition: HOME/ ROUTINE Disposition Time: 10:00 Condition: STABLE Discharge Instructions (ExitCare): Alcohol Abuse and Alcoholism (DC) Additional Instructions: return to er with worsening symptoms or concerns. please call detox centers. Forms: [employer] (French)
[2018-08-30 08:58] LABS: BASO # 0.06 K/mm3 (0.0-2.0); BASO % 0.8 % (0.0-3.0); EOS # 0.2 (0.0-0.7); EOS % 2.1 % (1.5-5.0); GRAN # 3.15 (1.4-6.5); GRAN % 41.7 % (50.0-68.0); HEMOGLOBIN 14.3 g/dL (14.0-18.0); LYMPH # 3.8 (1.2-3.4); LYMPH % 49.6 % (22.0-35.0); MEAN CELL VOLUME 96.2 fl (80.0-105.0); MEAN CORPUSCULAR HEMOGLOBIN 32.3 pg (25.0-35.0); MEAN CORPUSCULAR HGB CONC 33.6 g/dl (31.0-37.0); MEAN PLATELET VOLUME 10.1 fl (7.0-11.0); MONO # 0.4 (0.1-0.6); MONO % 5.8 % (1.0-6.0); RBC 4.43 10^6/uL (3.5-6.1); RED CELL DISTRIBUTION WIDTH 13.5 % (11.5-14.5); WHITE BLOOD COUNT 7.6 10^3/ul (4.5-11.0)
[2018-08-30 09:07] LABS: ALB/GLOB RATIO 1.3 (1.1-1.8); ALBUMIN 4.5 g/dL (3.0-4.8); ALT/SGPT 127 U/L (7-56); AST/SGOT 97 U/L (17-59); BLOOD UREA NITROGEN 14 mg/dL (7-21); CALCIUM 8.7 mg/dL (8.4-10.5); GFR NON-AFRICAN AMERICAN > 60
[2018-08-30 09:10] LABS: ACETAMINOPHEN < 10.0 ug/ml (10.0-20.0); SALICYLATE < 1 mg/dL (2.0-20.0)
[2018-08-30 09:52] VITALS: BP 114/74; PULSE 84; O2SAT 100
--- NOTE | 2018-08-30 10:23 | CARD ---
APPROVED REPORT Date of service: 08/30/2018 EKG Measurement Heart [id number] <Conclusion> Normal sinus rhythm Incomplete right bundle branch block NSSTW changes
== END 2018-08-30 10:06 | disposition home or self-care (01) ==
LOC: ED 07:10
DX: F10.129 Alcohol abuse with intoxication, unspecified (principal); F17.210 Nicotine dependence, cigarettes, uncomplicated

== ENCOUNTER 2018-09-07 02:51 | Inpatient (IN) | payer OTHER ==
[2018-09-07 02:51] VITALS: BMI 28.3
[2018-09-07 03:14] LABS: BASO # 0.05 K/mm3 (0.0-2.0); BASO % 0.5 % (0.0-3.0); EOS # 0.3 (0.0-0.7); EOS % 2.6 % (1.5-5.0); GRAN # 4.89 (1.4-6.5); GRAN % 48.5 % (50.0-68.0); HEMOGLOBIN 14.3 g/dL (14.0-18.0); LYMPH # 4.4 (1.2-3.4); LYMPH % 43.4 % (22.0-35.0); MEAN CELL VOLUME 96.8 fl (80.0-105.0); MEAN CORPUSCULAR HEMOGLOBIN 32.6 pg (25.0-35.0); MEAN CORPUSCULAR HGB CONC 33.6 g/dl (31.0-37.0); MEAN PLATELET VOLUME 10.3 fl (7.0-11.0); MONO # 0.5 (0.1-0.6); RBC 4.39 10^6/uL (3.5-6.1); RED CELL DISTRIBUTION WIDTH 13.9 % (11.5-14.5); WHITE BLOOD COUNT 10.1 10^3/uL (4.5-11.0)
[2018-09-07 03:32] LABS: ACETAMINOPHEN < 10.0 ug/ml (10.0-20.0); SALICYLATE < 1 mg/dL (2.0-20.0)
[2018-09-07 03:41] LABS: URINE BILIRUBIN NEGATIVE (NEGATIVE); URINE BLOOD NEGATIVE (NEGATIVE); URINE GLUCOSE (UA) NEGATIVE (NEGATIVE); URINE LEUKOCYTE ESTERASE NEGATIVE Leu/uL (NEGATIVE); URINE PROTEIN TRACE mg/dL (<30 mg/dL); URINE UROBILINOGEN 0.2 E.U./dL (<1 E.U./dL)
[2018-09-07 03:41] LABS: TROPONIN I < 0.01 ng/mL
[2018-09-07 03:43] LABS: URINE APPEARANCE CLEAR (CLEAR); URINE COLOR YELLOW (YELLOW)
[2018-09-07 03:47] LABS: FREE T4 0.59 ng/dL (0.78-2.19)
[2018-09-07 03:49] LABS: URINE BACTERIA RARE (NEG); URINE EPITHELIAL CELLS 0 - 2 /hpf (0-5); URINE HYALINE CAST 0 - 2 /hpf; URINE RBC 0 - 2 /hpf (0-2); URINE WBC 0 - 2 /hpf (0-6)
[2018-09-07 04:16] LABS: ALB/GLOB RATIO 1.3 (1.1-1.8); ALBUMIN 4.5 g/dL (3.0-4.8); ALT/SGPT 118 U/L (7-56); AST/SGOT 58 U/L (17-59); BLOOD UREA NITROGEN 16 mg/dL (7-21); CALCIUM 8.7 mg/dL (8.4-10.5); GFR NON-AFRICAN AMERICAN > 60
[2018-09-07 04:25] LABS: BARBITURATES, UR NEGATIVE (NEGATIVE); BENZODIAZEPINES, UR POSITIVE (NEGATIVE); OPIATES, UR NEGATIVE (NEGATIVE); PHENCYCLIDINE, UR NEGATIVE (NEGATIVE)
--- NOTE | 2018-09-07 04:28 | ED PDOC ---
Arrival/HPI - General Historian: Patient - History of Present Illness Narrative History of Present Illness (Text): This is a 27 year old male with PMH of EtOH abuse, polysubstance abuse with detox in the past, alcohol withdrawal, anxiety, and depression, who presents to the ED with complaints of drinking too much tonight. Pt is a poor historian. Pt reports that he usually drinks 2-3 pints of whiskey/vodka per day. He admits to drinking 2 pints of vodka tonight. Pt states that he has been feeling more depressed than usual tonight. Pt states that he cut himself tonight, which he does regularly when he "drinks too much," as an emotional outlet. He denies any suicidal or homicidal ideations. He denies using any other medications or drugs tonight. He states that he hasn't taken any of his medications in the past 2 weeks. Pt states that his last alcohol withdrawal seizure was 2 months ago. He denies fever, chills, chest pain, sob, abdominal pain, n/v. Pt's last drink was at about 10 pm. <Rush Guerrero - Last Filed: 09/07/18 05:38> <Joselito Bell - Last Filed: 09/08/18 20:03> - General Chief Complaint: Psychiatric Evaluation Time Seen by Provider: 09/07/18 02:55 Past Medical History - Provider Review Nursing Documentation Reviewed: Yes - Past History Past History: No Previous (alcohol dependent) - Infectious Disease Hx of Infectious Diseases: None - Tetanus Immunization Tetanus Immunization: Unknown - Past Medical History Past Medical History: No Previous - Cardiac Hx Cardiac Disorders: No - Pulmonary Hx Respiratory Disorders: No - Neurological Hx Neurological Disorder: No - HEENT Hx HEENT Disorder: No - Renal Hx Renal Disorder: No - Endocrine/Metabolic Hx Endocrine Disorders: No - Hematological/Oncological Hx Blood Disorders: No - Integumentary Hx Dermatological Disorder: No - Musculoskeletal/Rheumatological Hx Musculoskeletal Disorders: Yes Hx Fractures: Yes - Gastrointestinal Hx Gastrointestinal Disorders: No - Genitourinary/Gynecological Hx Genitourinary Disorders: No - Psychiatric Hx Psychophysiologic Disorder: Yes Hx Anxiety: Yes Hx Depression: Yes Hx Panic Disorder: Yes Hx Substance Use: Yes - Past Surgical History Past Surgical History: No Previous - Surgical History Other/Comment: 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12 - Anesthesia Hx Anesthesia: Yes Hx Anesthesia Reactions: No Hx Malignant Hyperthermia: No - Suicidal Assessment Suicide Risk Precautions: Close Observation, Suicide Precautions <Rush Guerrero - Last Filed: 09/07/18 05:38> Family/Social History - Physician Review Nursing Documentation Reviewed: Yes Family/Social History: Unknown Family HX Smoking Status: Heavy Smoker > 10 Cigarettes Daily Hx Alcohol Use: Yes Hx Substance Use: Yes Substance used: marijuana; ecstasy; ativan Hx Substance Use Treatment: No <Rush Guerrero - Last Filed: 09/07/18 05:38> Allergies/Home Meds <Rush Guerrero - Last Filed: 09/07/18 05:38> <Joselito Bell - Last Filed: 09/08/18 20:03> Allergies/Adverse Reactions: Allergies No Known Allergies Allergy (Verified 09/08/18 02:18) Home Medications: Home Meds Medication Instructions Recorded Confirmed RX: No Known Home Med 05/22/18 09/07/18 Review of Systems - Review of Systems Constitutional: Normal Eyes: Normal ENT: Normal Respiratory: Normal Cardiovascular: Normal Gastrointestinal: Diarrhea (yellow colored bowel movements) Genitourinary Male: Normal Musculoskeletal: Arthralgias Skin: Normal Neurological: Headache. absent: Dizziness, Speech Changes, Facial Droop, Seizure Psychiatric: Anxiety, Depression <Rush Guerrero Last Filed: 09/07/18 05:38> Physical Exam Vital Signs Reviewed: Yes Vital Signs Pulse Resp BP Pulse Ox 09/07/18 02:59 106 H 18 129/76 94 L Blood Pressure: Normal Pulse: Regular Respiratory Rate: Normal Appearance: Positive for: Well-Appearing, Non-Toxic Pain Distress: None Mental Status: Positive for: Alert and Oriented X 3, other (intoxicated) - Systems Exam Head: Present: Atraumatic, Normocephalic. No: Tenderness, Ecchymosis, Abrasion, Laceration Extroacular Muscles: Present: EOMI Mouth: Present: Moist Mucous Membranes Neck: Present: Normal Range of Motion Respiratory/Chest: Present: Clear to Auscultation. No: Respiratory Distress, Wheezes, Rhonchi Cardiovascular: Present: Normal S1, S2, Tachycardic Abdomen: Present: Normal Bowel Sounds. No: Tenderness, Distention, Rebound, Guarding Upper Extremity: Present: Normal Inspection, NORMAL PULSES Lower Extremity: Present: Normal Inspection, NORMAL PULSES. No: CALF TENDERNESS Neurological: Present: GCS=15, CN II-XII Intact Skin: Present: Warm, Dry, Other ((+) self inflicted superficial lacertaions to the left forearm, right thigh; nontender, no active bleeding; (+) old scars of similar nature in the same area) Psychiatric: Present: Alert, Oriented x 3, Intoxicated <Rush Guerrero - Last Filed: 09/07/18 05:38> Vital Signs Pulse Resp BP Pulse Ox 09/07/18 02:59 106 H 18 129/76 94 L <Joselito Bell - Last Filed: 09/08/18 20:03> Medical Decision Making ED Course and Treatment: Pt presents with acute alcohol intoxication. EtOH level, salicyte level, acetaminophen level, EKG, troponin, CBC, CMP, UDS, UA. 09/07/18 05:38 Pt has been medically cleared; will be evaluated by PES worker after clinical sobriety. - Lab Interpretations Lab Results: 09/07/18 03:04 09/07/18 03:04 Lab Results 09/07/18 03:15: Urine Color Yellow, Urine Appearance Clear, Urine pH 6.0, Ur Specific [place] >= 1.030, Urine Protein Trace H, Urine Glucose (UA) Negative, Urine Ketones Negative, Urine Blood Negative, Urine Nitrate Negative, Urine Bilirubin Negative, Urine Urobilinogen 0.2, Ur Leukocyte Esterase Negative, Urine RBC 0 - 2, Urine WBC 0 - 2, Ur Epithelial Cells 0 - 2, Urine Bacteria Rare, Hyaline Casts 0 - 2 09/07/18 03:15: Urine Opiates Screen Negative, Urine Methadone Screen Negative, Ur Barbiturates Screen Negative, Ur Phencyclidine Scrn Negative, Ur Amphetamines Screen Negative, U Benzodiazepines Scrn Positive H, U Oth Cocaine Metabols Negative, U Cannabinoids Screen Negative 09/07/18 03:04: Salicylates < 1 L, Acetaminophen < 10.0 L 09/07/18 03:04: Free T4 0.59 L, TSH 3rd Generation 1.85, Alcohol, Quantitative 231 H 09/07/18 03:04: Sodium 146, Potassium 4.1, Chloride 113 H, Carbon Dioxide 21, Anion Gap 17, BUN 16, Creatinine 0.9, Est GFR ( Amer) > 60, Est GFR (Non- Af Amer) > 60, Random Glucose 145 H, Calcium 8.7, Total Bilirubin 0.2, AST 58, ALT 118 H, Alkaline Phosphatase 101, Troponin I < 0.01, Total Protein 7.9, Albumin 4.5, Globulin 3.4, Albumin/Globulin Ratio 1.3 09/07/18 03:04: WBC 10.1 D, RBC 4.39, Hgb 14.3, Hct 42.5, MCV 96.8, MCH 32.6, MCHC 33.6, RDW 13.9, Plt Count 203, MPV 10.3, Gran % 48.5 L, Lymph % (Auto) 43.4 H, [place] % (Auto) 5.0, Eos % (Auto) 2.6, Baso % (Auto) 0.5, Gran # 4.89, Lymph # (Auto) 4.4 H, [place] # (Auto) 0.5, Eos # (Auto) 0.3, Baso # (Auto) 0.05 - RAD Interpretation Radiology Orders: 09/07/18 02:59 CHEST PORTABLE [RAD] Stat <Rush Guerrero - Last Filed: 09/07/18 05:38> - Lab Interpretations Lab Results: 09/07/18 03:04 09/07/18 03:04 Lab Results 09/07/18 03:15: Urine Color Yellow, Urine Appearance Clear, Urine pH 6.0, Ur Specific [place] >= 1.030, Urine Protein Trace H, Urine Glucose (UA) Negative, Urine Ketones Negative, Urine Blood Negative, Urine Nitrate Negative, Urine Bilirubin Negative, Urine Urobilinogen 0.2, Ur Leukocyte Esterase Negative, Urine RBC 0 - 2, Urine WBC 0 - 2, Ur Epithelial Cells 0 - 2, Urine Bacteria Rare, Hyaline Casts 0 - 2 09/07/18 03:15: Urine Opiates Screen Negative, Urine Methadone Screen Negative, Ur Barbiturates Screen Negative, Ur Phencyclidine Scrn Negative, Ur Amphetamines Screen Negative, U Benzodiazepines Scrn Positive H, U Oth Cocaine Metabols Negative, U Cannabinoids Screen Negative 09/07/18 03:04: Salicylates < 1 L, Acetaminophen < 10.0 L 09/07/18 03:04: Free T4 0.59 L, TSH 3rd Generation 1.85, Alcohol, Quantitative 231 H 09/07/18 03:04: Sodium 146, Potassium 4.1, Chloride 113 H, Carbon Dioxide 21, Anion Gap 17, BUN 16, Creatinine 0.9, Est GFR ( Amer) > 60, Est GFR (Non- Af Amer) > 60, Random Glucose 145 H, Calcium 8.7, Total Bilirubin 0.2, AST 58, ALT 118 H, Alkaline Phosphatase 101, Troponin I < 0.01, Total Protein 7.9, Albumin 4.5, Globulin 3.4, Albumin/Globulin Ratio 1.3 09/07/18 03:04: WBC 10.1 D, RBC 4.39, Hgb 14.3, Hct 42.5, MCV 96.8, MCH 32.6, MCHC 33.6, RDW 13.9, Plt Count 203, MPV 10.3, Gran % 48.5 L, Lymph % (Auto) 43.4 H, [place] % (Auto) 5.0, Eos % (Auto) 2.6, Baso % (Auto) 0.5, Gran # 4.89, Lymph # (Auto) 4.4 H, [place] # (Auto) 0.5, Eos # (Auto) 0.3, Baso # (Auto) 0.05 - RAD Interpretation Radiology Orders: 09/07/18 02:59 CHEST PORTABLE [RAD] Stat - Medication Orders Current Medication Orders: Discontinued Medications Chlordiazepoxide (Librium) 25 mg PO STAT STA; Protocol Stop: 09/07/18 04:41 Last Admin: 09/07/18 05:33 Dose: 25 mg <Bosompem,Joselito - Last Filed: 09/08/18 20:03> - Scribe Statement The provider has reviewed the documentation as recorded by the Scribe Patient Seen with Resident: In agreement with resident note which contains more details about the patient. Patient seen and evaluated with resident. Came up with plan and treatment together. <Bosompem,Joseltio - Last Filed: 09/08/18 20:03> Disposition/Present on Arrival - Present on Arrival History of DVT/PE: No History of Uncontrolled Diabetes: No Urinary Catheter: No History of Decub. Ulcer: No History Surgical Site Infection Following: None <Rush Guerrero - Last Filed: 09/07/18 05:38> - Present on Arrival Any Indicators Present on Arrival: No - Disposition Have Diagnosis and Disposition been Completed?: Yes Disposition Time: 07:00 <Joselito Bell - Last Filed: 09/08/18 20:03> - Disposition Diagnosis: Depression, Alcohol abuse Disposition: HOSPITALIZED Patient Problems: Current Active Problems Problem Status Onset Alcohol use disorder Acute Depression Acute Alcohol abuse Chronic Condition: STABLE
[2018-09-07 06:17] VITALS: O2SAT 98
--- NOTE | 2018-09-07 07:44 | ED PDOC ---
Physical Exam Vital Signs Pulse Resp BP Pulse Ox 09/07/18 06:16 94 H 17 105/55 L 98 09/07/18 02:59 106 H 18 129/76 94 L Blood Pressure: Normal Pulse: Tachycardic Respiratory Rate: Normal Appearance: Positive for: Uncomfortable (sleeping uncomfortably ) Pain Distress: Mild (mild distress) Mental Status: Positive for: other (Patient is sleeping) Medical Decision Making ED Course and Treatment: Progress notes: 09/07/18 07:00 Patient presents for EtOH intoxication. Awaiting sobriety. PES has seen patient but did not complete evaluation due to patient's drunken state. Superficial linear lacerations of his right upper thigh and his left upper arm, but no bleeding. No need for sutures. - Lab Interpretations Lab Results: 09/07/18 03:04 09/07/18 03:04 Lab Results 09/07/18 06:00: Lipase 85 09/07/18 03:15: Urine Color Yellow, Urine Appearance Clear, Urine pH 6.0, Ur Specific [place] >= 1.030, Urine Protein Trace H, Urine Glucose (UA) Negative, Urine Ketones Negative, Urine Blood Negative, Urine Nitrate Negative, Urine Bilirubin Negative, Urine Urobilinogen 0.2, Ur Leukocyte Esterase Negative, Urine RBC 0 - 2, Urine WBC 0 - 2, Ur Epithelial Cells 0 - 2, Urine Bacteria Rare, Hyaline Casts 0 - 2 09/07/18 03:15: Urine Opiates Screen Negative, Urine Methadone Screen Negative, Ur Barbiturates Screen Negative, Ur Phencyclidine Scrn Negative, Ur Amphetamines Screen Negative, U Benzodiazepines Scrn Positive H, U Oth Cocaine Metabols Negative, U Cannabinoids Screen Negative 09/07/18 03:04: Salicylates < 1 L, Acetaminophen < 10.0 L 09/07/18 03:04: Free T4 0.59 L, TSH 3rd Generation 1.85, Alcohol, Quantitative 231 H 09/07/18 03:04: Sodium 146, Potassium 4.1, Chloride 113 H, Carbon Dioxide 21, Anion Gap 17, BUN 16, Creatinine 0.9, Est GFR ( Amer) > 60, Est GFR (Non- Af Amer) > 60, Random Glucose 145 H, Calcium 8.7, Total Bilirubin 0.2, AST 58, ALT 118 H, Alkaline Phosphatase 101, Troponin I < 0.01, Total Protein 7.9, Albumin 4.5, Globulin 3.4, Albumin/Globulin Ratio 1.3 09/07/18 03:04: WBC 10.1 D, RBC 4.39, Hgb 14.3, Hct 42.5, MCV 96.8, MCH 32.6, MCHC 33.6, RDW 13.9, Plt Count 203, MPV 10.3, Gran % 48.5 L, Lymph % (Auto) 43.4 H, [place] % (Auto) 5.0, Eos % (Auto) 2.6, Baso % (Auto) 0.5, Gran # 4.89, Lymph # (Auto) 4.4 H, [place] # (Auto) 0.5, Eos # (Auto) 0.3, Baso # (Auto) 0.05 - RAD Interpretation Radiology Orders: 09/07/18 02:59 CHEST PORTABLE [RAD] Stat - Medication Orders Current Medication Orders: Discontinued Medications Chlordiazepoxide (Librium) 25 mg PO STAT STA; Protocol Stop: 09/07/18 04:41 Last Admin: 09/07/18 05:33 Dose: 25 mg - Scribe Statement The provider has reviewed the documentation as recorded by the Scribe Sharlene Bynum All medical record entries made by the Ladanibmigdalia were at my direction and personally dictated by me. I have reviewed the chart and agree that the record accurately reflects my personal performance of the history, physical exam, medical decision making, and the department course for this patient. I have also personally directed, reviewed, and agree with the discharge instructions and disposition. Disposition/Present on Arrival - Present on Arrival Any Indicators Present on Arrival: No History of DVT/PE: No History of Uncontrolled Diabetes: No Urinary Catheter: No History of Decub. Ulcer: No History Surgical Site Infection Following: None - Disposition Have Diagnosis and Disposition been Completed?: Yes Diagnosis: Depression, Alcohol abuse Disposition: HOSPITALIZED Disposition Time: 08:24 Patient Plan: Admission Condition: STABLE Forms: [employer] (Malay)
--- NOTE | 2018-09-07 09:20 | RAD ---
Date of service: 09/07/2018 HISTORY: psych preop COMPARISON: Portable chest 05/22/2018. FINDINGS: LUNGS: Improved inspiratory volume. No interval pulmonary disease appreciated bilaterally. PLEURA: No significant pleural effusion identified, no pneumothorax apparent. CARDIOVASCULAR: No aortic atherosclerotic calcification present. Normal cardiac size. No pulmonary vascular congestion. OSSEOUS STRUCTURES: No significant abnormalities. VISUALIZED UPPER ABDOMEN: Normal. OTHER FINDINGS: None. IMPRESSION: No interval acute cardiopulmonary disease appreciated.
--- NOTE | 2018-09-07 09:39 | CARD ---
APPROVED REPORT Date of service: 09/07/2018 EKG Measurement Heart [id number] <Conclusion> Normal sinus rhythm Incomplete right bundle branch block Borderline ECG
[2018-09-07] MEDS: Multivitamin With Minerals Tab PO SCH (10:21)
[2018-09-07] MEDS: Pantoprazole 40 mg EC Tab PO SCH ×2 (11:06→17:40)
[2018-09-07] MEDS ORDERED: Magnesium Hydroxide Susp 30 ml UD PO PRN (11:21)
--- NOTE | 2018-09-07 13:28 | PCM.BM ---
<Kenroy Stewart - Last Filed: 09/07/18 13:25> Treatment Plan Problems - Problems identified on initial assessmt Hopelessness/Helplessness Date Initiated: 09/07/18 Time Initiated: 11:00 Assessment reference: NA Status: Active Priority: 1 Feelings of Worthlessness Date Initiated: 09/07/18 Time Initiated: 11:00 Assessment reference: NA Status: Active Priority: 2 Knowledge Deficit: Alcohol Use Date Initiated: 09/07/18 Time Initiated: 11:00 Assessment reference: NA Status: Active Priority: 3 Ineffective Coping Date Initiated: 09/07/18 Time Initiated: 11:00 Assessment reference: NA Status: Active Priority: 4 Treatment assets and liabiliti Patient Assests: adapts well, cooperative, educated, insightful, motivated, ADL independent, negotiates basic needs Patient Liabilities: relationship conflicts, substance abuse (alcohol) - Milieu Protocol Maintain good personal hygiene: daily Encourage regular showers, every shift Remind patient to perform daily oral care, every shift Assist patient to perform ADL's Maintain personal safety: every shift Educate patient to report safety concerns to staff, every shift Monitor environment for contraband/sharps Medication safety: Monitor for expected outcome, potential side effects: every shift, Assess barriers to learning: every shift, Assess readiness for medication education: every shift Family Contact Family involvement: Family/SO is involved Family contact: Patient agrees to contact - Goals for Treatment Patient goals for treatment: Treatment for depression and addiction to alcohol Discharge/Continuing Care - Education Needs Education Needs: Patient Medication, Patient Diagnosis/Disease Process, Patient Coping Skills, Patient Anger Management skills, Patient Placement options, Patient Community resources, Patient Activities of Daily Living, Patient Pain, Patient Nutrition, Patient Uses of Medical Equipment, Patient Health Practices/Safety, Patient Personal Hygiene/Grooming, Patient Aftercare Safety Plan - Discharge Discharge Criteria: Tolerates medication w/o severe side effects <Hollie Orellana - Last Filed: 09/07/18 14:45> - Diagnosis (1) Alcohol use disorder Status: Acute (2) MDD (major depressive disorder) Status: Chronic <Digna Cunningham - Last Filed: 09/08/18 15:17> Family Contact Family involvement: Famliy/SO not involved
[2018-09-08] MEDS: Pantoprazole 40 mg EC Tab PO SCH ×2 (06:12→15:40)
[2018-09-08 08:05] LABS: GLUCOSE,FASTING 98 mg/dL (65-110); HDL CHOLESTEROL 55 mg/dL (29-60)
[2018-09-08 08:15] LABS: LDL CHOLESTEROL 116 mg/dL (0-129)
[2018-09-08] MEDS: Multivitamin With Minerals Tab PO SCH (09:04)
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
--- NOTE | 2018-09-08 13:02 | PCM.PYCHPN ---
Psychiatric Progress Note - Psychiatric Progress Note Patient seen today, length of contact: 30 minutes Patient Chief Complaint: "I slept little better" Problems Identified/Issues Discussed: Suicide/ homicide prevention, past psychiatric h/o, current psychiatric symptoms, medical problems, risk/benefits and alternatives of medications, medications compliance, coping strategies, substance abuse h/o, relapse prevention, importance of follow up with psychiatrist and therapist, discharge plan. 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, please see initial evaluation for more detailed information Diagnostic Results: 09/07/18 03:04 09/07/18 03:04 Lab Results 09/08/18 07:30: TSH 3rd Generation 3.36 09/08/18 07:30: Fasting Glucose 98, Triglycerides 424 H, Cholesterol 230 H, LDL Cholesterol Direct 116, HDL Cholesterol 55 09/07/18 06:00: Lipase 85 09/07/18 03:15: Urine Color Yellow, Urine Appearance Clear, Urine pH 6.0, Ur Specific [place] >= 1.030, Urine Protein Trace H, Urine Glucose (UA) Negative, Urine Ketones Negative, Urine Blood Negative, Urine Nitrate Negative, Urine Bilirubin Negative, Urine Urobilinogen 0.2, Ur Leukocyte Esterase Negative, Urine RBC 0 - 2, Urine WBC 0 - 2, Ur Epithelial Cells 0 - 2, Urine Bacteria Rare, Hyaline Casts 0 - 2 09/07/18 03:15: Urine Opiates Screen Negative, Urine Methadone Screen Negative, Ur Barbiturates Screen Negative, Ur Phencyclidine Scrn Negative, Ur Amphetamines Screen Negative, U Benzodiazepines Scrn Positive H, U Oth Cocaine Metabols Neg ative, U Cannabinoids Screen Negative 09/07/18 03:04: Salicylates < 1 L, Acetaminophen < 10.0 L 09/07/18 03:04: Free T4 0.59 L, TSH 3rd Generation 1.85, Alcohol, Quantitative 231 H 09/07/18 03:04: Sodium 146, Potassium 4.1, Chloride 113 H, Carbon Dioxide 21, Anion Gap 17, BUN 16, Creatinine 0.9, Est GFR ( Amer) > 60, Est GFR (Non- Af Amer) > 60, Random Glucose 145 H, Calcium 8.7, Total Bilirubin 0.2, AST 58, ALT 118 H, Alkaline Phosphatase 101, Troponin I < 0.01, Total Protein 7.9, Albumin 4.5, Globulin 3.4, Albumin/Globulin Ratio 1.3 09/07/18 03:04: WBC 10.1 D, RBC 4.39, Hgb 14.3, Hct 42.5, MCV 96.8, MCH 32.6, MCHC 33.6, RDW 13.9, Plt Count 203, MPV 10.3, Gran % 48.5 L, Lymph % (Auto) 43.4 H, [place] % (Auto) 5.0, Eos % (Auto) 2.6, Baso % (Auto) 0.5, Gran # 4.89, Lymph # (Auto) 4.4 H, [place] # (Auto) 0.5, Eos # (Auto) 0.3, Baso # (Auto) 0.05 Vital Signs Temp Pulse Resp BP Pulse Ox 09/08/18 07:25 98.6 F 63 20 112/69 09/07/18 16:00 68 110/63 09/07/18 09:34 98.0 F 93 H 18 98 09/07/18 09:08 98.0 F 94 H 18 110/70 98 09/07/18 06:16 94 H 17 105/55 L 98 09/07/18 02:59 106 H 18 129/76 94 L DSM 5 Symptoms Update: shortly patient is 27-year-old male, self reported history of depression, alcohol use disorder, self reported history of THC, one involuntary commitment to [facility], h/o leaving AGAINST MEDICAL ADVICE, chronic noncompliance with the medications and follow-up appointments, patient referred to the emergency room by his best friends in context of self inflicting cuts on upper extremities, pt presented to be depressed, intoxicated, passive wish to be , pt requires further evaluation and stabilization and medications resumption on titration. Patient was seen today at the treatment team meeting. presented better to compare with the time of admission. pt reported slept better with trazodone than with remeron, willing to continue trazodne. pt said that he still feels depressed, but more hopeful for the future. pt has no remorse of his cutting behavior and relapsing on alcohol. pt said that he is drinking because he is very anxious. pt expressed no interest to go to inpatient rehab. so far patient tolerates medications well, no side effects observed or reported, aims 0, no EPS. As per nursing report patient is visible in the unit, started to go to groups, no agitation or aggression, medications compliant. MDD r/o substance induced mood disorder r/o bipolar as per h/o? ADHD cannabis abuse r/o impulse control disorder Medication Change: Yes Medical Record Reviewed: Yes Consults ordered or reviewed: patient was seen by medical team in the emergency room, no acute medical issues Mental Status Examination - Cognitive Function Orientation: Person, Place, Situation, Time Memory: Intact Attention: Poor (ssomewhat better) Concentration: Poor (ssomewhat better) Association: WNL Fund of Knowledge: WNL - Mood Mood: Depressed, Anxious - Affect Affect: Constricted, Flat - Formal Thought Process Formal Thought Process: No Impairment - Suicidal Ideation Suicidal Ideation: No - Homicidal Ideation Homicidal Ideation: No Goal/Treatment Plan - Goal/Treatment Plan Need for Continued Stay: Remain at risks for inpatient hospitalization, Severe depression anxiety, Discharge may exacerbated symptoms, Severe functional impairment Progress Toward Problem(s) and Goals/Treatment Plan: Milieu/structure/supportive therapy SW consultation for discharge plan and social issues meds confirmed by [facility] Librium 25 mg every 6 hours filled last week from [facility] ER filled last week Clonidine 0.1 mg twice a day filled in May Vistaril 50 mg 3 times a day filled in May Thiamine in 100 mg daily filled in May Daily vitamins filled in May Folic acid filled in June 07 day supply was given resume multivitamins, thiamine, folic acid Librium 50 mg 3 times a day for alcohol withdrawals BuSpar resumed the milligrams 3 times a day Prozac started 10 mg daily with plan to increase that further Neurontin 600 mg 3 times a day off label for anxiety and cravings Trazodone 50 mg at the nighttime for depression and insomnia was discussed with the patient, patient wants to think about it Family involvement Follow up on labs Will monitor closely Pt was educated about risk/benefits and alternatives of medications, coping strategies (safety plan, suicide prevention), relapse prevention, importance of follow up with psychiatrist and therapist, stay away from drugs/alcohol/smoking Estimated Date of D/C: 09/13/18
[2018-09-08] MEDS: Alum-Mag Hydrox-Simethicone Susp (30 mL) PO PRN (20:27)
[2018-09-09] MEDS: Pantoprazole 40 mg EC Tab PO SCH ×2 (07:21→16:38)
[2018-09-09] MEDS: Multivitamin With Minerals Tab PO SCH (08:13)
--- NOTE | 2018-09-09 13:54 | PCM.PYCHPN ---
Psychiatric Progress Note - Psychiatric Progress Note Patient seen today, length of contact: 30 minutes Patient Chief Complaint: "I slept little better" Problems Identified/Issues Discussed: Suicide/ homicide prevention, past psychiatric h/o, current psychiatric symptoms, medical problems, risk/benefits and alternatives of medications, medications compliance, coping strategies, substance abuse h/o, relapse prevention, importance of follow up with psychiatrist and therapist, discharge plan. 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, please see initial evaluation for more detailed information Diagnostic Results: 09/07/18 03:04 09/07/18 03:04 Lab Results 09/08/18 07:30: TSH 3rd Generation 3.36 09/08/18 07:30: Fasting Glucose 98, Triglycerides 424 H, Cholesterol 230 H, LDL Cholesterol Direct 116, HDL Cholesterol 55 09/07/18 06:00: Lipase 85 09/07/18 03:15: Urine Color Yellow, Urine Appearance Clear, Urine pH 6.0, Ur Specific [place] >= 1.030, Urine Protein Trace H, Urine Glucose (UA) Negative, Urine Ketones Negative, Urine Blood Negative, Urine Nitrate Negative, Urine Bilirubin Negative, Urine Urobilinogen 0.2, Ur Leukocyte Esterase Negative, Urine RBC 0 - 2, Urine WBC 0 - 2, Ur Epithelial Cells 0 - 2, Urine Bacteria Rare, Hyaline Casts 0 - 2 09/07/18 03:15: Urine Opiates Screen Negative, Urine Methadone Screen Negative, Ur Barbiturates Screen Negative, Ur Phencyclidine Scrn Negative, Ur Amphetamines Screen Negative, U Benzodiazepines Scrn Positive H, U Oth Cocaine Metabols Neg ative, U Cannabinoids Screen Negative 09/07/18 03:04: Salicylates < 1 L, Acetaminophen < 10.0 L 09/07/18 03:04: Free T4 0.59 L, TSH 3rd Generation 1.85, Alcohol, Quantitative 231 H 09/07/18 03:04: Sodium 146, Potassium 4.1, Chloride 113 H, Carbon Dioxide 21, Anion Gap 17, BUN 16, Creatinine 0.9, Est GFR ( Amer) > 60, Est GFR (Non- Af Amer) > 60, Random Glucose 145 H, Calcium 8.7, Total Bilirubin 0.2, AST 58, ALT 118 H, Alkaline Phosphatase 101, Troponin I < 0.01, Total Protein 7.9, Albumin 4.5, Globulin 3.4, Albumin/Globulin Ratio 1.3 09/07/18 03:04: WBC 10.1 D, RBC 4.39, Hgb 14.3, Hct 42.5, MCV 96.8, MCH 32.6, MCHC 33.6, RDW 13.9, Plt Count 203, MPV 10.3, Gran % 48.5 L, Lymph % (Auto) 43.4 H, [place] % (Auto) 5.0, Eos % (Auto) 2.6, Baso % (Auto) 0.5, Gran # 4.89, Lymph # (Auto) 4.4 H, [place] # (Auto) 0.5, Eos # (Auto) 0.3, Baso # (Auto) 0.05 Vital Signs Temp Pulse Resp BP Pulse Ox 09/08/18 07:25 98.6 F 63 20 112/69 09/07/18 16:00 68 110/63 09/07/18 09:34 98.0 F 93 H 18 98 09/07/18 09:08 98.0 F 94 H 18 110/70 98 09/07/18 06:16 94 H 17 105/55 L 98 09/07/18 02:59 106 H 18 129/76 94 L DSM 5 Symptoms Update: shortly patient is 27-year-old male, self reported history of depression, alcohol use disorder, self reported history of THC, one involuntary commitment to [facility], h/o leaving AGAINST MEDICAL ADVICE, chronic noncompliance with the medications and follow-up appointments, patient referred to the emergency room by his best friends in context of self inflicting cuts on upper extremities, pt presented to be depressed, intoxicated, passive wish to be , pt requires further evaluation and stabilization and medications resumption on titration. Patient was seen today in his room with medical students, pt presented to be sleepy, pt said that he had a good night sleep, withdrawals are better, mild UE tremor, patient is able to hold food down, no nausea no vomiting, vital signs are stable pt reported slept better with trazodone , we'll continue that medication. pt said that he still feels depressed, but more hopeful for the future. pt has no remorse of his cutting behavior and relapsing on alcohol. pt expressed no interest to go to inpatient rehab. so far patient tolerates medications well, no side effects observed or reported, aims 0, no EPS. As per nursing report patient is visible in the unit, started to go to groups, no agitation or aggression, medications compliant. MDD r/o substance induced mood disorder r/o bipolar as per h/o? ADHD cannabis abuse r/o impulse control disorder Medication Change: Yes Medical Record Reviewed: Yes Mental Status Examination - Cognitive Function Orientation: Person, Place, Situation, Time Memory: Intact Attention: Poor (ssomewhat better) Concentration: Poor (ssomewhat better) Association: WNL Fund of Knowledge: WNL - Mood Mood: Depressed, Anxious - Affect Affect: Constricted, Flat - Formal Thought Process Formal Thought Process: No Impairment - Suicidal Ideation Suicidal Ideation: No - Homicidal Ideation Homicidal Ideation: No Goal/Treatment Plan - Goal/Treatment Plan Need for Continued Stay: Remain at risks for inpatient hospitalization, Severe depression anxiety, Discharge may exacerbated symptoms, Severe functional impairment Progress Toward Problem(s) and Goals/Treatment Plan: Milieu/structure/supportive therapy SW consultation for discharge plan and social issues multivitamins, thiamine, folic acid Librium 50 mg 3 times a day for alcohol withdrawals BuSpar resumed the milligrams 3 times a day Prozac was increased to 20 mg daily with plan to increase that further Neurontin 600 mg 3 times a day off label for anxiety and cravings Trazodone 50 mg at the nighttime for depression and insomnia was discussed with the patient, patient wants to think about it Family involvement Follow up on labs Will monitor closely Pt was educated about risk/benefits and alternatives of medications, coping strategies (safety plan, suicide prevention), relapse prevention, importance of follow up with psychiatrist and therapist, stay away from drugs/alcohol/smoking Estimated Date of D/C: 09/13/18
[2018-09-10] MEDS: Pantoprazole 40 mg EC Tab PO SCH ×2 (06:26→16:56)
[2018-09-10] MEDS: Multivitamin With Minerals Tab PO SCH (07:58)
--- NOTE | 2018-09-10 13:30 | PCM.PYCHPN ---
Psychiatric Progress Note - Psychiatric Progress Note Patient seen today, length of contact: 30 minutes Patient Chief Complaint: "I am anxious that is why I am drinking alcohol" Problems Identified/Issues Discussed: Suicide/ homicide prevention, past psychiatric h/o, current psychiatric symptoms, medical problems, risk/benefits and alternatives of medications, medications compliance, coping strategies, substance abuse h/o, relapse prevention, importance of follow up with psychiatrist and therapist, discharge plan. Medical Problems: alcohol withdrawal much better no tremor, vitals are stable Diagnostic Results: 09/07/18 03:04 09/07/18 03:04 Lab Results 09/08/18 07:30: TSH 3rd Generation 3.36 09/08/18 07:30: Fasting Glucose 98, Triglycerides 424 H, Cholesterol 230 H, LDL Cholesterol Direct 116, HDL Cholesterol 55 09/07/18 06:00: Lipase 85 09/07/18 03:15: Urine Color Yellow, Urine Appearance Clear, Urine pH 6.0, Ur Specific [place] >= 1.030, Urine Protein Trace H, Urine Glucose (UA) Negative, Urine Ketones Negative, Urine Blood Negative, Urine Nitrate Negative, Urine Bilirubin Negative, Urine Urobilinogen 0.2, Ur Leukocyte Esterase Negative, Urine RBC 0 - 2, Urine WBC 0 - 2, Ur Epithelial Cells 0 - 2, Urine Bacteria Rare, Hyaline Casts 0 - 2 09/07/18 03:15: Urine Opiates Screen Negative, Urine Methadone Screen Negative, Ur Barbiturates Screen Negative, Ur Phencyclidine Scrn Negative, Ur Amphetamines Screen Negative, U Benzodiazepines Scrn Positive H, U Oth Cocaine Metabols Negative, U Cannabinoids Screen Negative 09/07/18 03:04: Salicylates < 1 L, Acetaminophen < 10.0 L 09/07/18 03:04: Free T4 0.59 L, TSH 3rd Generation 1.85, Alcohol, Quantitative 231 H 09/07/18 03:04: Sodium 146, Potassium 4.1, Chloride 113 H, Carbon Dioxide 21, Anion Gap 17, BUN 16, Creatinine 0.9, Est GFR ( Amer) > 60, Est GFR (Non- Af Amer) > 60, Random Glucose 145 H, Calcium 8.7, Total Bilirubin 0.2, AST 58, ALT 118 H, Alkaline Phosphatase 101, Troponin I < 0.01, Total Protein 7.9, Albumin 4.5, Globulin 3.4, Albumin/Globulin Ratio 1.3 09/07/18 03:04: WBC 10.1 D, RBC 4.39, Hgb 14.3, Hct 42.5, MCV 96.8, MCH 32.6, MCHC 33.6, RDW 13.9, Plt Count 203, MPV 10.3, Gran % 48.5 L, Lymph % (Auto) 43.4 H, [place] % (Auto) 5.0, Eos % (Auto) 2.6, Baso % (Auto) 0.5, Gran # 4.89, Lymph # (Auto) 4.4 H, [place] # (Auto) 0.5, Eos # (Auto) 0.3, Baso # (Auto) 0.05 Vital Signs Temp Pulse Resp BP Pulse Ox 09/08/18 07:25 98.6 F 63 20 112/69 09/07/18 16:00 68 110/63 09/07/18 09:34 98.0 F 93 H 18 98 09/07/18 09:08 98.0 F 94 H 18 110/70 98 09/07/18 06:16 94 H 17 105/55 L 98 09/07/18 02:59 106 H 18 129/76 94 L Temp Pulse Resp BP Pulse Ox 97.9 F 101 H 20 108/62 98 09/10/18 07:06 09/10/18 07:06 09/10/18 07:06 09/10/18 07:06 09/07/18 09:34 DSM 5 Symptoms Update: shortly patient is 27-year-old male, self reported history of depres nikhil, alcohol use disorder, self reported history of THC, one involuntary commitment to [facility], h/o leaving AGAINST MEDICAL ADVICE, chronic noncompliance with the medications and follow-up appointments, patient referred to the emergency room by his best friends in context of self inflicting cuts on upper extremities, pt presented to be depressed, intoxicated, passive wish to be , pt requires further evaluation and stabilization and medications resumption on titration. Patient was seen today in his room with medical students, pt presented to be sleepy, pt said that he had a good night sleep, withdrawals are better, no tremor today, pt's appetite is better. pt asked to be weaned off from buspar. pt tolerates prozac well, pt is on tapering dose of librium with the plant to wean it off. pt reported that he was drinking because of "high anxiety". pt will be accepted to [facility] on small dose of benzodiazepines with a plan to wean him off benzodiazepines eventually, pt wants ativan to be started, pt does not want to be on klonopin "I heard bad staff about this medication". pt said that he still feels depressed, but more hopeful for the future. pt has no remorse of his cutting behavior and relapsing on alcohol. pt expressed no interest to go to inpatient rehab. so far patient tolerates medications well, no side effects observed or reported, aims 0, no EPS. As per nursing report patient entitled, was dissatisfied with the services, splitting staff. pt expressed no complaints to this physician underwriter. MDD r/o substance induced mood disorder r/o bipolar as per h/o? ADHD cannabis abuse r/o impulse control disorder Medication Change: Yes (librium decreased, ativan prn, buspar) Medical Record Reviewed: Yes Consults ordered or reviewed: patient was seen by medical team in the emergency room, no acute medical issues Mental Status Examination - Cognitive Function Orientation: Person, Place, Situation, Time Memory: Intact Attention: Poor (ssomewhat better) Concentration: Poor (ssomewhat better) Association: WNL Fund of Knowledge: WNL - Mood Mood: Depressed, Anxious - Affect Affect: Constricted, Flat - Formal Thought Process Formal Thought Process: No Impairment - Suicidal Ideation Suicidal Ideation: No - Homicidal Ideation Homicidal Ideation: No Goal/Treatment Plan - Goal/Treatment Plan Need for Continued Stay: Remain at risks for inpatient hospitalization, Severe depression anxiety, Discharge may exacerbated symptoms, Severe functional impairment Progress Toward Problem(s) and Goals/Treatment Plan: Milieu/structure/supportive therapy SW consultation for discharge plan and social issues multivitamins, thiamine, folic acid Librium 25mg 3 times a day for alcohol withdrawals BuSpar d/c Prozac 20 mg daily with plan to increase that further Neurontin 600 mg 3 times a day off label for anxiety and cravings Trazodone 50 mg at the nighttime for depression and insomnia ativan 1mg bid for anxiety with the plan to continue current dose for anxiety vistaril prn, with plan to d/c in near future, whenever prozac will reach therapeutic effect naltrexone discussed with pt Family involvement Follow up on labs Will monitor closely Pt was educated about risk/benefits and alternatives of medications, coping strategies (safety plan, suicide prevention), relapse prevention, importance of follow up with psychiatrist and therapist, stay away from drugs/alcohol/smoking Estimated Date of D/C: 09/13/18
[2018-09-10] MEDS: Alum-Mag Hydrox-Simethicone Susp (30 mL) PO PRN (21:47)
[2018-09-11] MEDS: Pantoprazole 40 mg EC Tab PO SCH ×2 (07:16→16:07)
[2018-09-11] MEDS: Multivitamin With Minerals Tab PO SCH (08:39)
--- NOTE | 2018-09-11 09:48 | PCM.PYCHPN ---
Psychiatric Progress Note - Psychiatric Progress Note Patient seen today, length of contact: 30 minutes Problems Identified/Issues Discussed: I reviewed assessment and recent notes. I am familiar with this patient from interviews during prior presentions to ER and medical floor. Patient has a lot of difficulty abstaining from alcohol and this has led to multiple recurrent issues in this life. Presently he is being treated for depression, anxiety and alcohol withdrawal. He is alert, well-oriented and pleasant during my visit. He remembers me from prior interactions and range is full. He is feeling better since admission though still suffers from a lot of anxiety. Denies perceptual disturbance or any new pain or discomfort. Patient has been bright visible and friendly on the unit. He can communicate needs well. Patient has been compliant with medications without any behavioral issues however doesn't appear to be very motivated to stop drinking though understands need and consequences. Diagnostic Results: MDD r/o substance induced mood disorder r/o bipolar as per h/o? ADHD cannabis abuse r/o impulse control disorder Medication Change: Yes (librium decreased, ativan prn, buspar) Medical Record Reviewed: Yes Mental Status Examination - Cognitive Function Orientation: Person, Place, Situation, Time Memory: Intact Attention: Poor (ssomewhat better) Concentration: Poor (ssomewhat better) Association: WNL Fund of Knowledge: WNL - Mood Mood: Depressed (better), Anxious - Affect Affect: Constricted (reactive, pleasant), Flat - Speech Speech: Appropriate - Formal Thought Process Formal Thought Process: No Impairment - Suicidal Ideation Suicidal Ideation: No - Homicidal Ideation Homicidal Ideation: No Goal/Treatment Plan - Goal/Treatment Plan Need for Continued Stay: Remain at risks for inpatient hospitalization, Severe depression anxiety, Discharge may exacerbated symptoms, Severe functional impairment Progress Toward Problem(s) and Goals/Treatment Plan: * c/w current tx and plan * Librium 25 mg po TID with Ativan 1 mg po bid prn for alcohol withdrawals * Prozac 20 mg po daily with plan to further titrate as necessary * No new weekend lab results noted thus far * Vitals reviewed and noted below: Selected Entries 09/10/18 09/10/18 07:06 16:00 Temperature 97.9 F Pulse Rate 101 H 85 Respiratory 20 Rate Blood Pressure 108/62 110/56 L Estimated Date of D/C: 09/13/18
[2018-09-12] MEDS: Pantoprazole 40 mg EC Tab PO SCH ×2 (07:09→15:58)
[2018-09-12] MEDS: Multivitamin With Minerals Tab PO SCH (08:40)
--- NOTE | 2018-09-12 09:45 | PCM.PYCHPN ---
Psychiatric Progress Note - Psychiatric Progress Note Patient seen today, length of contact: 30 minutes Problems Identified/Issues Discussed: I reviewed recent notes. I am familiar with this patient from interviews during prior presentions to ER and medical floor. Patient has a lot of difficulty abstaining from alcohol and this has led to multiple recurrent issues in this life. Presently he is being treated for depression, anxiety and alcohol withdrawal. He is alert, well-oriented and pleasant during my visit. He remembers me from prior interactions and range is full. He is feeling better since admission though depression persists and he still suffers from a lot of anxiety. Denies perceptual disturbance or any new pain or discomfort. Patient has been bright visible and friendly on the unit. He can communicate needs well. Patient has been compliant with medications without any behavioral issues however doesn't appear to be very motivated to stop drinking though understands need and consequences. Patient also appears to be medication seeking at times with reported panic episodes over the weekend. Enjoyed a positive family visit on Thursday. Diagnostic Results: MDD r/o substance induced mood disorder r/o bipolar as per h/o? ADHD cannabis abuse r/o impulse control disorder Medication Change: Yes (prozac increased to 30 mg po daily) Medical Record Reviewed: Yes Mental Status Examination - Cognitive Function Orientation: Person, Place, Situation, Time Memory: Intact Attention: Poor (ssomewhat better) Concentration: Poor (ssomewhat better) Association: WNL Fund of Knowledge: WNL - Mood Mood: Depressed (better), Anxious - Affect Affect: Constricted (reactive, pleasant), Flat - Speech Speech: Appropriate - Formal Thought Process Formal Thought Process: No Impairment - Suicidal Ideation Suicidal Ideation: No - Homicidal Ideation Homicidal Ideation: No Goal/Treatment Plan - Goal/Treatment Plan Need for Continued Stay: Remain at risks for inpatient hospitalization, Severe depression anxiety, Discharge may exacerbated symptoms, Severe functional impairment Progress Toward Problem(s) and Goals/Treatment Plan: * c/w current tx and plan * Librium 25 mg po TID with Ativan 1 mg po bid prn for alcohol withdrawals * Prozac increased to 30 mg po daily on 09/12/18 with plan to further titrate as necessary * No new weekend lab results noted thus far * Vitals reviewed and noted below: Selected Entries 09/11/18 09/11/18 07:32 15:49 Temperature 97.9 F Pulse Rate 66 75 Respiratory 20 Rate Blood Pressure 116/80 123/81 Estimated Date of D/C: 09/13/18
[2018-09-13] MEDS: Pantoprazole 40 mg EC Tab PO SCH ×2 (08:49→17:28)
[2018-09-13] MEDS: Multivitamin With Minerals Tab PO SCH (08:49)
--- NOTE | 2018-09-13 13:41 | PCM.PYCHPN ---
Psychiatric Progress Note - Psychiatric Progress Note Patient seen today, length of contact: 30 minutes Patient Chief Complaint: "I am very anxious still" Problems Identified/Issues Discussed: Suicide/ homicide prevention, past psychiatric h/o, current psychiatric symptoms, medical problems, risk/benefits and alternatives of medications, medications compliance, coping strategies, substance abuse h/o, relapse prevention, importance of follow up with psychiatrist and therapist, discharge plan. Medical Problems: alcohol withdrawal much better no tremor, vitals are stable Diagnostic Results: 09/07/18 03:04 09/07/18 03:04 Lab Results 09/08/18 07:30: TSH 3rd Generation 3.36 09/08/18 07:30: Fasting Glucose 98, Triglycerides 424 H, Cholesterol 230 H, LDL Cholesterol Direct 116, HDL Cholesterol 55 09/07/18 06:00: Lipase 85 09/07/18 03:15: Urine Color Yellow, Urine Appearance Clear, Urine pH 6.0, Ur Specific [place] >= 1.030, Urine Protein Trace H, Urine Glucose (UA) Negative, Urine Ketones Negative, Urine Blood Negative, Urine Nitrate Negative, Urine Bilirubin Negative, Urine Urobilinogen 0.2, Ur Leukocyte Esterase Negative, Urine RBC 0 - 2, Urine WBC 0 - 2, Ur Epithelial Cells 0 - 2, Urine Bacteria Rare, Hyaline Casts 0 - 2 09/07/18 03:15: Urine Opiates Screen Negative, Urine Methadone Screen Negative, Ur Barbiturates Screen Negative, Ur Phencyclidine Scrn Negative, Ur Amphetamines Screen Negative, U Benzodiazepines Scrn Positive H, U Oth Cocaine Metabols Negative, U Cannabinoids Screen Negative 09/07/18 03:04: Salicylates < 1 L, Acetaminophen < 10.0 L 09/07/18 03:04: Free T4 0.59 L, TSH 3rd Generation 1.85, Alcohol, Quantitative 2 31 H 09/07/18 03:04: Sodium 146, Potassium 4.1, Chloride 113 H, Carbon Dioxide 21, Anion Gap 17, BUN 16, Creatinine 0.9, Est GFR ( Amer) > 60, Est GFR (Non- Af Amer) > 60, Random Glucose 145 H, Calcium 8.7, Total Bilirubin 0.2, AST 58, ALT 118 H, Alkaline Phosphatase 101, Troponin I < 0.01, Total Protein 7.9, Albumin 4.5, Globulin 3.4, Albumin/Globulin Ratio 1.3 09/07/18 03:04: WBC 10.1 D, RBC 4.39, Hgb 14.3, Hct 42.5, MCV 96.8, MCH 32.6, MCHC 33.6, RDW 13.9, Plt Count 203, MPV 10.3, Gran % 48.5 L, Lymph % (Auto) 43.4 H, [place] % (Auto) 5.0, Eos % (Auto) 2.6, Baso % (Auto) 0.5, Gran # 4.89, Lymph # (Auto) 4.4 H, [place] # (Auto) 0.5, Eos # (Auto) 0.3, Baso # (Auto) 0.05 Vital Signs Temp Pulse Resp BP Pulse Ox 09/08/18 07:25 98.6 F 63 20 112/69 09/07/18 16:00 68 110/63 09/07/18 09:34 98.0 F 93 H 18 98 09/07/18 09:08 98.0 F 94 H 18 110/70 98 09/07/18 06:16 94 H 17 105/55 L 98 09/07/18 02:59 106 H 18 129/76 94 L Temp Pulse Resp BP Pulse Ox 97.9 F 101 H 20 108/62 98 09/10/18 07:06 09/10/18 07:06 09/10/18 07:06 09/10/18 07:06 09/07/18 09:34 Temp Pulse Resp BP Pulse Ox 98.7 F 69 20 105/65 98 09/13/18 07:17 09/13/18 07:17 09/13/18 07:17 09/13/18 07:17 09/07/18 09:34 DSM 5 Symptoms Update: shortly patient is 27-year-old male, self reported history of depression, alcohol use disorder, self reported history of THC, one involuntary commitment to [facility], h/o leaving AGAINST MEDICAL ADVICE, chronic noncompliance with the medications and follow-up appointments, patient referred to the emergency room by his best friends in context of self inflicting cuts on upper extremities, pt presented to be depressed, intoxicated, passive wish to be , pt requires further evaluation and stabilization and medications resumption on titration. Patient was seen today next to the nursing station, pt preoccupied with be nzodiazepines only. pt was keep asking the same questions again and again. pt reported overall he feels better. sleep is improving. at times pt is annoyed, irritable, strong borderline traits, s plitting/antagonizing entitled, dissatisfied with the services. pt expressed no interest to go to inpatient rehab. so far patient tolerates medications well, no side effects observed or reported, aims 0, no EPS. Impression: DSMV: MDD r/o substance induced mood disorder r/o bipolar as per h/o? ADHD cannabis abuse r/o impulse control disorder Medication Change: Yes (ativan 2mg po tid, librium decreased) Medical Record Reviewed: Yes Mental Status Examination - Cognitive Function Orientation: Person, Place, Situation, Time Memory: Intact Attention: Poor (ssomewhat better) Concentration: Poor (ssomewhat better) Association: WNL Fund of Knowledge: WNL - Mood Mood: Depressed (better), Anxious - Affect Affect: Constricted (reactive, pleasant), Flat - Speech Speech: Appropriate - Formal Thought Process Formal Thought Process: No Impairment - Suicidal Ideation Suicidal Ideation: No - Homicidal Ideation Homicidal Ideation: No Goal/Treatment Plan - Goal/Treatment Plan Need for Continued Stay: Remain at risks for inpatient hospitalization, Severe depression anxiety, Discharge may exacerbated symptoms, Severe functional impairment Progress Toward Problem(s) and Goals/Treatment Plan: Milieu/structure/supportive therapy SW consultation for discharge plan and social issues multivitamins, thiamine, folic acid Librium 20mg 3 times a day for alcohol withdrawals BuSpar d/c Prozac 30 mg daily with plan to increase that further Neurontin 600 mg 3 times a day off label for anxiety and cravings Trazodone 50 mg at the nighttime for depression and insomnia ativan 1mg tid for anxiety with the plan to continue current dose for anxiety vistaril prn, with plan to d/c in near future, whenever prozac will reach therapeutic effect naltrexone discussed with pt Family involvement Follow up on labs Will monitor closely Pt was educated about risk/benefits and alternatives of medications, coping strategies (safety plan, suicide prevention), relapse prevention, importance of follow up with psychiatrist and therapist, stay away from drugs/alcohol/smoking Estimated Date of D/C: 09/16/18
[2018-09-14] MEDS: Multivitamin With Minerals Tab PO SCH (08:06)
[2018-09-14] MEDS: Pantoprazole 40 mg EC Tab PO SCH ×2 (08:07→16:30)
--- NOTE | 2018-09-14 14:53 | PCM.PYCHPN ---
Psychiatric Progress Note - Psychiatric Progress Note Patient seen today, length of contact: 30 minutes Patient Chief Complaint: "do you have pill for happiness?" Problems Identified/Issues Discussed: Suicide/ homicide prevention, past psychiatric h/o, current psychiatric symptoms, medical problems, risk/benefits and alternatives of medications, medications compliance, coping strategies, substance abuse h/o, relapse prevention, importance of follow up with psychiatrist and therapist, discharge plan. Medical Problems: alcohol withdrawal much better no tremor, vitals are stable Diagnostic Results: 09/07/18 03:04 09/07/18 03:04 Lab Results 09/08/18 07:30: TSH 3rd Generation 3.36 09/08/18 07:30: Fasting Glucose 98, Triglycerides 424 H, Cholesterol 230 H, LDL Cholesterol Direct 116, HDL Cholesterol 55 09/07/18 06:00: Lipase 85 09/07/18 03:15: Urine Color Yellow, Urine Appearance Clear, Urine pH 6.0, Ur Specific [place] >= 1.030, Urine Protein Trace H, Urine Glucose (UA) Negative, Urine Ketones Negative, Urine Blood Negative, Urine Nitrate Negative, Urine Bilirubin Negative, Urine Urobilinogen 0.2, Ur Leukocyte Esterase Negative, Urine RBC 0 - 2, Urine WBC 0 - 2, Ur Epithelial Cells 0 - 2, Urine Bacteria Rare, Hyaline Casts 0 - 2 09/07/18 03:15: Urine Opiates Screen Negative, Urine Methadone Screen Negative, Ur Barbiturates Screen Negative, Ur Phencyclidine Scrn Negative, Ur Amphetamines Screen Negative, U Benzodiazepines Scrn Positive H, U Oth Cocaine Metabols Negative, U Cannabinoids Screen Negative 09/07/18 03:04: Salicylates < 1 L, Acetaminophen < 10.0 L 09/07/18 03:04: Free T4 0.59 L, TSH 3rd Generation 1.85, Alcohol, Quantitative 231 H 09/07/18 03:04: Sodium 146, Potassium 4.1, Chloride 113 H, Carbon Dioxide 21, Anion Gap 17, BUN 16, Creatinine 0.9, Est GFR ( Amer) > 60, Est GFR (Non- Af Amer) > 60, Random Glucose 145 H, Calcium 8.7, Total Bilirubin 0.2, AST 58, ALT 118 H, Alkaline Phosphatase 101, Troponin I < 0.01, Total Protein 7.9, Albumin 4.5, Globulin 3.4, Albumin/Globulin Ratio 1.3 09/07/18 03:04: WBC 10.1 D, RBC 4.39, Hgb 14.3, Hct 42.5, MCV 96.8, MCH 32.6, MCHC 33.6, RDW 13.9, Plt Count 203, MPV 10.3, Gran % 48.5 L, Lymph % (Auto) 43.4 H, [place] % (Auto) 5.0, Eos % (Auto) 2.6, Baso % (Auto) 0.5, Gran # 4.89, Lymph # (Auto) 4.4 H, [place] # (Auto) 0.5, Eos # (Auto) 0.3, Baso # (Auto) 0.05 Vital Signs Temp Pulse Resp BP Pulse Ox 09/08/18 07:25 98.6 F 63 20 112/69 09/07/18 16:00 68 110/63 09/07/18 09:34 98.0 F 93 H 18 98 09/07/18 09:08 98.0 F 94 H 18 110/70 98 09/07/18 06:16 94 H 17 105/55 L 98 09/07/18 02:59 106 H 18 129/76 94 L Temp Pulse Resp BP Pulse Ox 97.9 F 101 H 20 108/62 98 09/10/18 07:06 09/10/18 07:06 09/10/18 07:06 09/10/18 07:06 09/07/18 09:34 Temp Pulse Resp BP Pulse Ox 98.7 F 69 20 105/65 98 09/13/18 07:17 09/13/18 07:17 09/13/18 07:17 09/13/18 07:17 09/07/18 09:34 DSM 5 Symptoms Update: shortly patient is 27-year-old male, self reported history of depression, alcohol use disorder, self reported history of THC, one involuntary commitment to [facility], h/o leaving AGAINST MEDICAL ADVICE, chronic noncompliance with the medications and follow-up appointments, patient referred to the emergency room by his best friends in context of self inflicting cuts on upper extremities, pt presented to be depressed, intoxicated, passive wish to be , pt requires further evaluation and stabilization and med ications resumption on titration. Patient was seen today the TV area with mental health worker, patient presented better today, still preoccupied with benzodiazepines, patient reported that Ativan is making him feel anxious in between doses, patient was educated about clonazepam, patient is willing to try this medication. Patient tolerated tapering Librium well, no withdrawal symptoms observed or reported. Patient asked Prozac to be increased patient asked this check writer salesperson for medication "for happiness", patient was advised that there is no such medication exist, supportive therapy provided. pt was willing to increase dose of prozac. pt reported overall he feels better. sleep is improving. at times pt is annoyed, irritable, strong borderline traits, splitting/antagonizing entitled, dissatisfied with the services. pt expressed no interest to go to inpatient rehab. so far patient tolerates medications well, no side effects observed or reported, aims 0, no EPS. Impression: DSMV: MDD r/o substance induced mood disorder r/o bipolar as per h/o? ADHD cannabis abuse r/o impulse control disorder Medication Change: Yes (klonopin started, librium decreased, ativan d/c) Medical Record Reviewed: Yes Consults ordered or reviewed: patient was seen by medical team in the emergency room, no acute medical issues Mental Status Examination - Cognitive Function Orientation: Person, Place, Situation, Time Memory: Intact Attention: Poor (ssomewhat better) Concentration: Poor (ssomewhat better) Association: WNL Fund of Knowledge: WNL - Mood Mood: Depressed (better), Anxious - Affect Affect: Constricted (reactive, pleasant), Flat - Speech Speech: Appropriate - Formal Thought Process Formal Thought Process: No Impairment - Suicidal Ideation Suicidal Ideation: No - Homicidal Ideation Homicidal Ideation: No Goal/Treatment Plan - Goal/Treatment Plan Need for Continued Stay: Remain at risks for inpatient hospitalization, Severe depression anxiety, Discharge may exacerbated symptoms, Severe functional impairment Progress Toward Problem(s) and Goals/Treatment Plan: Milieu/structure/supportive therapy SW consultation for discharge plan and social issues multivitamins, thiamine, folic acid Librium 10mg 3 times a day for alcohol withdrawals Prozac 40 mg daily with plan to increase that further Neurontin 600 mg 3 times a day off label for anxiety and cravings Trazodone 50 mg at the nighttime for depression and insomnia ativan d/c klonopin 1mg po bid for anxiety vistaril prn, with plan to d/c in near future, whenever prozac will reach therapeutic effect naltrexone discussed with pt Family involvement Follow up on labs Will monitor closely Pt was educated about risk/benefits and alternatives of medications, coping strategies (safety plan, suicide prevention), relapse prevention, importance of follow up with psychiatrist and therapist, stay away from drugs/alcohol/smoking Estimated Date of D/C: 09/16/18
[2018-09-15] MEDS: Pantoprazole 40 mg EC Tab PO SCH ×2 (06:51→16:13)
[2018-09-15] MEDS: Multivitamin With Minerals Tab PO SCH (08:58)
--- NOTE | 2018-09-15 15:13 | PCM.BM ---
<Digna Cunningham Y - Last Filed: 09/15/18 15:13> Treatment Plan Problems - Problems identified on initial assessmt Hopelessness/Helplessness Date Initiated: 09/07/18 Time Initiated: 11:00 Assessment reference: NA Status: Active Priority: 1 Feelings of Worthlessness Date Initiated: 09/07/18 Time Initiated: 11:00 Assessment reference: NA Status: Active Priority: 2 Knowledge Deficit: Alcohol Use Date Initiated: 09/07/18 Time Initiated: 11:00 Assessment reference: NA Status: Active Priority: 3 Ineffective Coping Date Initiated: 09/07/18 Time Initiated: 11:00 Assessment reference: NA Status: Active Priority: 4 Treatment assets and liabiliti Patient Assests: adapts well, cooperative, educated, insightful, motivated, ADL independent, negotiates basic needs Patient Liabilities: relationship conflicts, substance abuse (alcohol) - Milieu Protocol Maintain good personal hygiene: daily Encourage regular showers, every shift Remind patient to perform daily oral care, every shift Assist patient to perform ADL's Maintain personal safety: every shift Educate patient to report safety concerns to staff, every shift Monitor environment for contraband/sharps Medication safety: Monitor for expected outcome, potential side effects: every shift, Assess barriers to learning: every shift, Assess readiness for medication education: every shift Milieu Narrative: Milieu/structure/supportive therapy SW consultation for discharge plan and social issues multivitamins, thiamine, folic acid Librium 10mg 3 times a day for alcohol withdrawals Prozac 40 mg daily with plan to increase that further Neurontin 600 mg 3 times a day off label for anxiety and cravings Trazodone 50 mg at the nighttime for depression and insomnia ativan d/c klonopin 1mg po bid for anxiety vistaril prn, with plan to d/c in near future, whenever prozac will reach therapeutic effect naltrexone discussed with pt Family involvement Follow up on labs Will monitor closely Pt was educated about risk/benefits and alternatives of medications, coping strategies (safety plan, suicide prevention), relapse prevention, importance of follow up with psychiatrist and therapist, stay away from drugs/alcohol/smoking Family Contact Family involvement: Famliy/SO not involved - Goals for Treatment Patient goals for treatment: Treatment for depression and addiction to alcohol Discharge/Continuing Care - Education Needs Education Needs: Patient Medication, Patient Diagnosis/Disease Process, Patient Coping Skills, Patient Anger Management skills, Patient Placement options, Patient Community resources, Patient Activities of Daily Living, Patient Pain, Patient Nutrition, Patient Uses of Medical Equipment, Patient Health Practices/Safety, Patient Personal Hygiene/Grooming, Patient Aftercare Safety Plan - Discharge Discharge Criteria: Tolerates medication w/o severe side effects - Treatment Team Participation Patient/Family/SO Statement: Milieu/structure/supportive therapy SW consultation for discharge plan and social issues multivitamins, thiamine, folic acid Librium 10mg 3 times a day for alcohol withdrawals Prozac 40 mg daily with plan to increase that further Neurontin 600 mg 3 times a day off label for anxiety and cravings Trazodone 50 mg at the nighttime for depression and insomnia ativan d/c klonopin 1mg po bid for anxiety vistaril prn, with plan to d/c in near future, whenever prozac will reach t herapeutic effect naltrexone discussed with pt Family involvement Follow up on labs Will monitor closely Pt was educated about risk/benefits and alternatives of medications, coping strategies (safety plan, suicide prevention), relapse prevention, importance of follow up with psychiatrist and therapist, stay away from drugs/alcohol/smoking Treatment Plan Review - Problem Hopelessness/Helplessness Time Initiated: 11:00 Feelings of Worthlessness Time Initiated: 11:00 Knowledge Deficit: Alcohol Use Time Initiated: 11:00 Ineffective Coping Time Initiated: 11:00 <Hollie Orellana - Last Filed: 09/15/18 16:16> - Diagnosis (1) Alcohol use disorder Status: Acute Interventions: 09/15/18 16:16 withdrawal symptoms much better pt wants to Maintain sobriety Relapse prevention refused rehabilitation Motivational interviewing 12-step programs: AA meetings pt was educated about naltrexone script provided (2) MDD (major depressive disorder) Status: Chronic Interventions: 09/15/18 16:18 The patient is less depressed Patient is more optimistic Denied thoughts of harming himself or others Patient has future oriented plans Patient tolerates medications well, no side effects observed or reported <Marie Vinson - Last Filed: 09/15/18 16:46>
--- NOTE | 2018-09-15 16:25 | PCM.PYCHPN ---
Psychiatric Progress Note - Psychiatric Progress Note Patient seen today, length of contact: 30 minutes Patient Chief Complaint: "I feel much better" Problems Identified/Issues Discussed: Suicide/ homicide prevention, past psychiatric h/o, current psychiatric s ymptoms, medical problems, risk/benefits and alternatives of medications, medications compliance, coping strategies, substance abuse h/o, relapse prevention, importance of follow up with psychiatrist and therapist, discharge plan. Medical Problems: alcohol withdrawal much better no tremor, vitals are stable Diagnostic Results: 09/07/18 03:04 09/07/18 03:04 Lab Results 09/08/18 07:30: TSH 3rd Generation 3.36 09/08/18 07:30: Fasting Glucose 98, Triglycerides 424 H, Cholesterol 230 H, LDL Cholesterol Direct 116, HDL Cholesterol 55 09/07/18 06:00: Lipase 85 09/07/18 03:15: Urine Color Yellow, Urine Appearance Clear, Urine pH 6.0, Ur Specific [place] >= 1.030, Urine Protein Trace H, Urine Glucose (UA) Negative, Urine Ketones Negative, Urine Blood Negative, Urine Nitrate Negative, Urine Bilirubin Negative, Urine Urobilinogen 0.2, Ur Leukocyte Esterase Negative, Urine RBC 0 - 2, Urine WBC 0 - 2, Ur Epithelial Cells 0 - 2, Urine Bacteria Rare, Hyaline Casts 0 - 2 09/07/18 03:15: Urine Opiates Screen Negative, Urine Methadone Screen Negative, Ur Barbiturates Screen Negative, Ur Phencyclidine Scrn Negative, Ur Amphetamines Screen Negative, U Benzodiazepines Scrn Positive H, U Oth Cocaine Metabols Negative, U Cannabinoids Screen Negative 09/07/18 03:04: Salicylates < 1 L, Acetaminophen < 10.0 L 09/07/18 03:04: Free T4 0.59 L, TSH 3rd Generation 1.85, Alcohol, Quantitative 231 H 09/07/18 03:04: Sodium 146, Potassium 4.1, Chloride 113 H, Carbon Dioxide 21, Anion Gap 17, BUN 16, Creatinine 0.9, Est GFR ( Amer) > 60, Est GFR (Non- Af Amer) > 60, Random Glucose 145 H, Calcium 8.7, Total Bilirubin 0.2, AST 58, ALT 118 H, Alkaline Phosphatase 101, Troponin I < 0.01, Total Protein 7.9, A lbumin 4.5, Globulin 3.4, Albumin/Globulin Ratio 1.3 09/07/18 03:04: WBC 10.1 D, RBC 4.39, Hgb 14.3, Hct 42.5, MCV 96.8, MCH 32.6, MCHC 33.6, RDW 13.9, Plt Count 203, MPV 10.3, Gran % 48.5 L, Lymph % (Auto) 43.4 H, [place] % (Auto) 5.0, Eos % (Auto) 2.6, Baso % (Auto) 0.5, Gran # 4.89, Lymph # (Auto) 4.4 H, [place] # (Auto) 0.5, Eos # (Auto) 0.3, Baso # (Auto) 0.05 Vital Signs Temp Pulse Resp BP Pulse Ox 09/08/18 07:25 98.6 F 63 20 112/69 09/07/18 16:00 68 110/63 09/07/18 09:34 98.0 F 93 H 18 98 09/07/18 09:08 98.0 F 94 H 18 110/70 98 09/07/18 06:16 94 H 17 105/55 L 98 09/07/18 02:59 106 H 18 129/76 94 L Temp Pulse Resp BP Pulse Ox 97.9 F 101 H 20 108/62 98 09/10/18 07:06 09/10/18 07:06 09/10/18 07:06 09/10/18 07:06 09/07/18 09:34 Temp Pulse Resp BP Pulse Ox 98.7 F 69 20 105/65 98 09/13/18 07:17 09/13/18 07:17 09/13/18 07:17 09/13/18 07:17 09/07/18 09:34 DSM 5 Symptoms Update: shortly patient is 27-year-old male, self reported history of depression, alcohol use disorder, self reported history of THC, one involuntary commitment to [facility], h/o leaving AGAINST MEDICAL ADVICE, chronic noncompliance with the medications and follow-up appointments, patient referred to the emergency room by his best friends in context of self inflicting cuts on upper extremities, pt presented to be depressed, intoxicated, passive wish to be , pt requires further evaluation and stabilization and medications resumption on titration. Patient was seen today the TV area, presented well, patient was asking reasona ble questions about his discharge, patient asked about ADHD medications, patient was advised to have neuropsychological testing, hospital social worker was advised to provide patient with contact info of , neurologist Wilda, who could perform testing for the pt. Patient expressed interest to be on naltrexone for alcohol cravings, risk, benefits, alternatives discussed with the patient. In regards of depressive symptoms patient presented much better, denied any thoughts of harming himself or others, patient reported that his anxiety is under control, patient does not want to go to inpatient rehabilitation, patient wants to attend AA meeting NA meeting as well as see psychiatrist and therapist in the community. so far patient tolerates medications well, no side effects observed or reported, aims 0, no EPS. as per staff patient is calm, corporative, socially appropriate, attending groups. No agitation or aggression. Impression: DSMV: MDD r/o substance induced mood disorder r/o bipolar as per h/o? ADHD cannabis abuse Medication Change: Yes (Librium decreased) Medical Record Reviewed: Yes Mental Status Examination - Cognitive Function Orientation: Person, Place, Situation, Time Memory: Intact Attention: Poor (better) Concentration: Poor (bbetter) Association: WNL Fund of Knowledge: WNL - Mood Mood: Depressed (better) - Affect Affect: Constricted (but reactive and mood congruent) - Speech Speech: Appropriate - Formal Thought Process Formal Thought Process: No Impairment - Suicidal Ideation Suicidal Ideation: No - Homicidal Ideation Homicidal Ideation: No Goal/Treatment Plan - Goal/Treatment Plan Need for Continued Stay: Remain at risks for inpatient hospitalization, Severe depression anxiety, Discharge may exacerbated symptoms, Severe functional impairment Progress Toward Problem(s) and Goals/Treatment Plan: Milieu/structure/supportive therapy SW consultation for discharge plan and social issues multivitamins, thiamine, folic acid Librium 10mg 2 times a day for alcohol withdrawals Prozac 40 mg daily with plan to increase that further Neurontin 600 mg 3 times a day off label for anxiety and cravings Trazodone 50 mg at the nighttime for depression and insomnia ativan d/c klonopin 1mg po bid for anxiety vistaril prn, with plan to d/c in near future, whenever prozac will reach therapeutic effect naltrexone discussed with pt, willing to be on it patient reported that he has enough nicotine patches 21 mg at home, patient asked to have nicotine patch of 14 mg for 2 weeks with a plan to stop smoking Family involvement Follow up on labs Will monitor closely Pt was educated about risk/benefits and alternatives of medications, coping strategies (safety plan, suicide prevention), relapse prevention, importance of follow up with psychiatrist and therapist, stay away from drugs/alcohol/smoking Estimated Date of D/C: 09/16/18
--- NOTE | 2018-09-15 20:42 | PCM.BM ---
Treatment Plan Problems - Problems identified on initial assessmt Hopelessness/Helplessness Date Initiated: 09/07/18 Time Initiated: : Date resolved: 09/15/18 Assessment reference: NA Status: Active Priority: 1 Feelings of Worthlessness Date Initiated: 09/07/18 Time Initiated: 11: Date resolved: 09/15/18 Assessment reference: NA Status: Active Priority: 2 Knowledge Deficit: Alcohol Use Date Initiated: 09/07/18 (09/15/18 NEED MORE EDUCATION R/T ALCOHOL REHAB AND ABISTINENCE) Time Initiated: 11: Assessment reference: NA Status: Active Priority: 3 Ineffective Coping Date Initiated: 09/07/18 Time Initiated: Date resolved: 09/15/18 Assessment reference: NA Status: Active Priority: 4 Treatment assets and liabiliti Patient Assests: adapts well, cooperative, educated, insightful, motivated, ADL independent, negotiates basic needs Patient Liabilities: relationship conflicts, substance abuse (alcohol) - Milieu Protocol Maintain good personal hygiene: daily Encourage regular showers, every shift Remind patient to perform daily oral care, every shift Assist patient to perform ADL's Maintain personal safety: every shift Educate patient to report safety concerns to staff, every shift Monitor environment for contraband/sharps Medication safety: Monitor for expected outcome, potential side effects: every shift, Assess barriers to learning: every shift, Assess readiness for medication education: every shift Milieu Narrative: Milieu/structure/supportive therapy SW consultation for discharge plan and social issues multivitamins, thiamine, folic acid Librium 10mg 2 times a day for alcohol withdrawals Prozac 40 mg daily with plan to increase that further Neurontin 600 mg 3 times a day off label for anxiety and cravings Trazodone 50 mg at the nighttime for depression and insomnia ativan d/c klonopin 1mg po bid for anxiety vistaril prn, with plan to d/c in near future, whenever prozac will reach therapeutic effect naltrexone discussed with pt, willing to be on it patient reported that he has enough nicotine patches 21 mg at home, patient asked to have nicotine patch of 14 mg for 2 weeks with a plan to stop smoking Family involvement Follow up on labs Will monitor closely Pt was educated about risk/benefits and alternatives of medications, coping strategies (safety plan, suicide prevention), relapse prevention, importance of follow up with psychiatrist and therapist, stay away from drugs/alcohol/smoking Family Contact Family involvement: Famliy/SO not involved - Goals for Treatment Patient goals for treatment: Treatment for depression and addiction to alcohol Discharge/Continuing Care - Education Needs Education Needs: Patient Medication, Patient Diagnosis/Disease Process, Patient Coping Skills, Patient Anger Management skills, Patient Placement options, [facility] Community resources, Patient Activities of Daily Living, Patient Pain, Patient Nutrition, Patient Uses of Medical Equipment, Patient Health Practices/Safety, Patient Personal Hygiene/Grooming, Patient Aftercare Safety Plan - Discharge Discharge Criteria: Tolerates medication w/o severe side effects - Treatment Team Participation Patient/Family/SO Statement: Milieu/structure/supportive therapy SW consultation for discharge plan and social issues multivitamins, thiamine, folic acid Librium 10mg 2 times a day for alcohol withdrawals Prozac 40 mg daily with plan to increase that further Neurontin 600 mg 3 times a day off label for anxiety and cravings Trazodone 50 mg at the nighttime for depression and insomnia ativan d/c klonopin 1mg po bid for anxiety vistaril prn, with plan to d/c in near future, whenever prozac will reach therapeutic effect naltrexone discussed with pt, willing to be on it patient reported that he has enough nicotine patches 21 mg at home, patient asked to have nicotine patch of 14 mg for 2 weeks with a plan to stop smoking Family involvement Follow up on labs Will monitor closely Pt was educated about risk/benefits and alternatives of medications, coping strategies (safety plan, suicide prevention), relapse prevention, importance of follow up with psychiatrist and therapist, stay away from drugs/alcohol/smoking Treatment Plan Review - Problem Hopelessness/Helplessness Time Initiated: 11:00 Feelings of Worthlessness Time Initiated: 11:00 Knowledge Deficit: Alcohol Use Time Initiated: 11:00 Ineffective Coping Time Initiated: 11:00
[2018-09-16] MEDS: Pantoprazole 40 mg EC Tab PO SCH (06:48)
[2018-09-16 07:20] VITALS: BP 102/66; PULSE 58; RESP 20; TEMP 97.9
[2018-09-16] MEDS: Multivitamin With Minerals Tab PO SCH (09:24)
--- NOTE | 2018-09-16 13:12 | PCM.PYCHDC ---
Mental Status Examination - Mental Status Examination Orientation: Person, Place, Situation Memory: Intact Mood: Neutral Affect: Broad Speech: Appropriate Attention: WNL Concentration: WNL Association: WNL Fund of Knowledge: WNL Formal Thought Process: No Impairment Description of patient's judgement and insight: Improved and fair insight and judgement Psychotic Thoughts and Behaviors: Denies any perceptual disturbance including hallucinations or paranoia. Delusions were note elicited Suicidal Ideation: No Current Homicidal Ideation?: No Discharge Summary - Discharge Note Reason for Hospitalization: Patient is 27-year-old male, self reported history of depression, alcohol use disorder, self reported history of THC, one involuntary commitment to [facility], h/o leaving AGAINST MEDICAL ADVICE, chronic noncompliance with the medications and follow-up appointments, patient referred to the emergency room by his best friends in context of self inflicting cuts on upper extremities, pt presented to be depressed, intoxicated, passive wish to be , pt requires further evaluation and stabilization and medications resumption on titration. Psychiatric History (includes Medical, Family, Personal Hx): see HPI Laboratory Data: Laboratory Tests 09/07/18 09/07/18 09/07/18 03:04 03:04 03:04 WBC 10.1 D RBC 4.39 Hgb 14.3 Hct 42.5 MCV 96.8 MCH 32.6 MCHC 33.6 RDW 13.9 Plt Count 203 MPV 10.3 Gran % 48.5 L Lymph % (Auto) 43.4 H [place] % (Auto) 5.0 Eos % (Auto) 2.6 Baso % (Auto) 0.5 Gran # 4.89 Lymph # (Auto) 4.4 H [place] # (Auto) 0.5 Eos # (Auto) 0.3 Baso # (Auto) 0.05 Sodium 146 Potassium 4.1 Chloride 113 H Carbon Dioxide 21 Anion Gap 17 BUN 16 Creatinine 0.9 Est GFR ( Amer) > 60 Est GFR (Non-Af Amer) > 60 Random Glucose 145 H Fasting Glucose Calcium 8.7 Total Bilirubin 0.2 AST 58 ALT 118 H Alkaline Phosphatase 101 Troponin I < 0.01 Total Protein 7.9 Albumin 4.5 Globulin 3.4 Albumin/Globulin Ratio 1.3 Triglycerides Cholesterol LDL Cholesterol Direct HDL Cholesterol Lipase Free T4 0.59 L TSH 3rd Generation 1.85 Urine Color Urine Appearance Urine pH Ur Specific [place] Urine Protein Urine Glucose (UA) Urine Ketones Urine Blood Urine Nitrate Urine Bilirubin Urine Urobilinogen Ur Leukocyte Esterase Urine RBC Urine WBC Ur Epithelial Cells Urine Bacteria Hyaline Casts Salicylates Urine Opiates Screen Urine Methadone Screen Acetaminophen Ur Barbiturates Screen Ur Phencyclidine Scrn Ur Amphetamines Screen U Benzodiazepines Scrn U Oth Cocaine Metabols U Cannabinoids Screen Alcohol, Quantitative 231 H RPR 09/07/18 09/07/18 09/07/18 03:04 03:15 03:15 WBC RBC Hgb Hct MCV MCH MCHC RDW Plt Count MPV Gran % Lymph % (Auto) [place] % (Auto) Eos % (Auto) Baso % (Auto) Gran # Lymph # (Auto) [place] # (Auto) Eos # (Auto) Baso # (Auto) Sodium Potassium Chloride Carbon Dioxide Anion Gap BUN Creatinine Est GFR ( Amer) Est GFR (Non-Af Amer) Random Glucose Fasting Glucose Calcium Total Bilirubin AST ALT Alkaline Phosphatase Troponin I Total Protein Albumin Globulin Albumin/Globulin Ratio Triglycerides Cholesterol LDL Cholesterol Direct HDL Cholesterol Lipase Free T4 TSH 3rd Generation Urine Color Yellow Urine Appearance Clear Urine pH 6.0 Ur Specific [place] >= 1.030 Urine Protein Trace H Urine Glucose (UA) Negative Urine Ketones Negative Urine Blood Negative Urine Nitrate Negative Urine Bilirubin Negative Urine Urobilinogen 0.2 Ur Leukocyte Esterase Negative Urine RBC 0 - 2 Urine WBC 0 - 2 Ur Epithelial Cells 0 - 2 Urine Bacteria Rare Hyaline Casts 0 - 2 Salicylates < 1 L Urine Opiates Screen Negative Urine Methadone Screen Negative Acetaminophen < 10.0 L Ur Barbiturates Screen Negative Ur Phencyclidine Scrn Negative Ur Amphetamines Screen Negative U Benzodiazepines Scrn Positive H U Oth Cocaine Metabols Negative U Cannabinoids Screen Negative Alcohol, Quantitative RPR 09/07/18 09/08/18 09/08/18 06:00 07:30 07:30 WBC RBC Hgb Hct MCV MCH MCHC RDW Plt Count MPV Gran % Lymph % (Auto) [place] % (Auto) Eos % (Auto) Baso % (Auto) Gran # Lymph # (Auto) [place] # (Auto) Eos # (Auto) Baso # (Auto) Sodium Potassium Chloride Carbon Dioxide Anion Gap BUN Creatinine Est GFR ( Amer) Est GFR (Non-Af Amer) Random Glucose Fasting Glucose 98 Calcium Total Bilirubin AST ALT Alkaline Phosphatase Troponin I Total Protein Albumin Globulin Albumin/Globulin Ratio Triglycerides 424 H Cholesterol 230 H LDL Cholesterol Direct 116 HDL Cholesterol 55 Lipase 85 Free T4 TSH 3rd Generation 3.36 Urine Color Urine Appearance Urine pH Ur Specific [place] Urine Protein Urine Glucose (UA) Urine Ketones Urine Blood Urine Nitrate Urine Bilirubin Urine Urobilinogen Ur Leukocyte Esterase Urine RBC Urine WBC Ur Epithelial Cells Urine Bacteria Hyaline Casts Salicylates Urine Opiates Screen Urine Methadone Screen Acetaminophen Ur Barbiturates Screen Ur Phencyclidine Scrn Ur Amphetamines Screen U Benzodiazepines Scrn U Oth Cocaine Metabols U Cannabinoids Screen Alcohol, Quantitative RPR 09/08/18 07:30 WBC RBC Hgb Hct MCV MCH MCHC RDW Plt Count MPV Gran % Lymph % (Auto) [place] % (Auto) Eos % (Auto) Baso % (Auto) Gran # Lymph # (Auto) [place] # (Auto) Eos # (Auto) Baso # (Auto) Sodium Potassium Chloride Carbon Dioxide Anion Gap BUN Creatinine Est GFR ( Amer) Est GFR (Non-Af Amer) Random Glucose Fasting Glucose Calcium Total Bilirubin AST ALT Alkaline Phosphatase Troponin I Total Protein Albumin Globulin Albumin/Globulin Ratio Triglycerides Cholesterol LDL Cholesterol Direct HDL Cholesterol Lipase Free T4 TSH 3rd Generation Urine Color Urine Appearance Urine pH Ur Specific [place] Urine Protein Urine Glucose (UA) Urine Ketones Urine Blood Urine Nitrate Urine Bilirubin Urine Urobilinogen Ur Leukocyte Esterase Urine RBC Urine WBC Ur Epithelial Cells Urine Bacteria Hyaline Casts Salicylates Urine Opiates Screen Urine Methadone Screen Acetaminophen Ur Barbiturates Screen Ur Phencyclidine Scrn Ur Amphetamines Screen U Benzodiazepines Scrn U Oth Cocaine Metabols U Cannabinoids Screen Alcohol, Quantitative RPR Nonreactive Consultations:: List each consultation separately and include: 1. Reason for request. 2. Findings. 3. Follow-up Consultations: NONE Summary of Hospital Course include:: 1. Description of specific treatment plan utilized for patients during their course of treatmen. 2. Summarize the time- course for resolution of acute symptoms and/or regressed behaviors. 3. Describe issues identified and worked on during hospitalization. 4. Describe medication utilized. 5. Describe medical problems identified and treated. 6. Reassessment of suicide risk Summary of Hospital Course: PER DR. TUCKER'S PROGRESS NOTE ON 09/15/18 shortly patient is 27-year-old male, self reported history of depression, alcohol use disorder, self reported history of THC, one involuntary commitment to [facility], h/o leaving AGAINST MEDICAL ADVICE, chronic noncompliance with the medications and follow-up appointments, patient referred to the emergency room by his best friends in context of self inflicting cuts on upper extremities, pt presented to be depressed, intoxicated, passive wish to be , pt requires further evaluation and stabilization and medications resumption on titration. Patient was seen today the TV area, presented well, patient was asking reasonable questions about his discharge, patient asked about ADHD medications, patient was advised to have neuropsychological testing, neonatal social worker was advised to provide patient with contact info of , neurologist Wilda, who could perform testing for the pt. Patient expressed interest to be on naltrexone for alcohol cravings, risk, benefits, alternatives discussed with the patient. In regards of depressive symptoms patient presented much better, denied any thoughts of harming himself or others, patient reported that his anxiety is under control, patient does not want to go to inpatient rehabilitation, patient wants to attend AA meeting NA meeting as well as see psychiatrist and therapist in the community. so far patient tolerates medications well, no side effects observed or reported, aims 0, no EPS. as per staff patient is calm, corporative, socially appropriate, attending groups. No agitation or aggression. DR. GELLER'S DISCHARGE NOTE 09/16/18 I interviewed patient at bedside and in the dayroom to assess continued stability for discharge. Patient is alert and well-oriented to month, year and circumstances. Eye contact is good. Patient feels much improved and denies any suicidal thoughts or thoughts to harm others. Affect is pleasant, grateful, calm and appropriately reactive. Patient denies hallucinations and is not responding to internal stimuli. Thought process is clear and coherent. Patient feels comfortable with discharge today and denies any new concerns. Denies acute discomfort or pain. Tolerating medications and denies any issues with them. Delusions and paranoia were not elicited on day of discharge. - Final Diagnosis (DSM 5) Condition upon Discharge: STABLE DSM 5: MDD r/o substance induced mood disorder r/o bipolar as per h/o? ADHD cannabis abuse Disposition: HOME/ ROUTINE Follow-up Treatment Plan: Please refer to SW note for aftercare plans and nursing note for Rx provided by Dr. Tucker Prescriptions/Medication Reconciliation: clonazePAM [Klonopin] 1 mg PO BID #30 tab Fluoxetine HCl [Prozac] 40 mg PO DAILY #14 capsule Folic Acid 1 mg PO DAILY #14 tab Gabapentin [Neurontin] 600 mg PO TID #45 tab hydrOXYzine Pamoate [Vistaril] 50 mg PO TID PRN #45 cap PRN Reason: Anxiety Multimineral/Multivitamin [Therapeutic-M Tab] 1 tab PO 0800 #14 tab Naltrexone [Revia] 50 mg PO DAILY #14 tab Nicotine 14 mg/24 hr [Nicoderm CQ] 1 each TD DAILY #14 patch Pantoprazole [Protonix EC Tab] 40 mg PO 0600,1600 #14 ect Sodium Chloride Nasal [place] [Stevens Nasal [place]] 2 ml NS PRN PRN #1 bottle PRN Reason: Nasal Congestion Thiamine [Vitamin B1 Tab] 100 mg PO DAILY #14 tab traZODone [Desyrel] 50 mg PO HS PRN #14 tab PRN Reason: Insomnia - Smoking Cessation Smoking Cessation Medication prescribed: Yes
== END 2018-09-16 12:31 | disposition home or self-care (01) | DRG 754 ==
LOC: ED 02:51 → ERH 08:22 → PSYC 09:44
PROVIDERS: ADMIT Psychiatry & Neurology Psychiatry; ATTEND Psychiatry & Neurology Psychiatry
DX: F32.9 Major depressive disorder, single episode, unspecified (principal); F10.239 Alcohol dependence with withdrawal, unspecified; F12.10 Cannabis abuse, uncomplicated; F41.0 Panic disorder [episodic paroxysmal anxiety]; Y90.7 Blood alcohol level of 200-239 mg/100 ml; F90.9 Attention-deficit hyperactivity disorder, unspecified type; Z91.14 Patient's other noncompliance with medication regimen

== ENCOUNTER 2018-09-24 15:52 | Inpatient (IN) | payer MEDICAID, OTHER ==
[2018-09-24 16:36] VITALS: O2SAT 98; BMI 29.5
[2018-09-24 16:47] LABS: BASO # 0.06 K/mm3 (0.0-2.0); BASO % 0.8 % (0.0-3.0); EOS # 0.1 (0.0-0.7); EOS % 1.8 % (1.5-5.0); GRAN # 3.68 (1.4-6.5); GRAN % 51.6 % (50.0-68.0); HEMOGLOBIN 14.9 g/dL (14.0-18.0); LYMPH % 41.9 % (22.0-35.0); MEAN CELL VOLUME 93.8 fl (80.0-105.0); MEAN CORPUSCULAR HGB CONC 34.2 g/dl (31.0-37.0); MEAN PLATELET VOLUME 9.6 fl (7.0-11.0); MONO # 0.3 (0.1-0.6); MONO % 3.9 % (1.0-6.0); RBC 4.65 10^6/uL (3.5-6.1); RED CELL DISTRIBUTION WIDTH 13.3 % (11.5-14.5); WHITE BLOOD COUNT 7.1 10^3/uL (4.5-11.0)
[2018-09-24 16:59] LABS: ACETAMINOPHEN < 10.0 ug/ml (10.0-20.0); SALICYLATE < 1 mg/dL (2.0-20.0)
[2018-09-24 17:25] LABS: ALB/GLOB RATIO 1.3 (1.1-1.8); ALBUMIN 4.2 g/dL (3.0-4.8); ALT/SGPT 50 U/L (7-56); AST/SGOT 37 U/L (17-59); BLOOD UREA NITROGEN 19 mg/dL (7-21); CALCIUM 9.3 mg/dL (8.4-10.5); GFR NON-AFRICAN AMERICAN > 60
--- NOTE | 2018-09-24 17:32 | ED PDOC ---
Arrival/HPI - General Chief Complaint: Psychiatric Evaluation - History of Present Illness Narrative History of Present Illness (Text): 09/24/18 18:43 27 year old male with PMH of depression and alcohol abuse presents to the Emergency department complaining of suicidal ideations x 1 day. Has a plan to burn himself or cut his wrists. Pt is well known to the Emergency department. States that he recently lost his insurance and is now unable to afford outpatient psychiatric followup or his Klonopin. Last dose of Klonopin this morning. Admits to alcohol use last night and this morning. Last drink 9AM. Has no physical complaints, states he feels anxious. Denies HI, hallucinations, drug use, fever, chills, headache, vision changes, tremors, seizures, abdominal pain, N/V, chest pain, shortness of breath, back pain. Past Medical History - Provider Review Nursing Documentation Reviewed: Yes - Past History Past History: No Previous (alcohol dependent) - Infectious Disease Hx of Infectious Diseases: None - Tetanus Immunization Tetanus Immunization: Unknown - Past Medical History Past Medical History: No Previous - Cardiac Hx Cardiac Disorders: No - Pulmonary Hx Respiratory Disorders: No - Neurological Hx Neurological Disorder: No - HEENT Hx HEENT Disorder: No - Renal Hx Renal Disorder: No - Endocrine/Metabolic Hx Endocrine Disorders: No - Hematological/Oncological Hx Blood Disorders: No - Integumentary Hx Dermatological Disorder: No - Musculoskeletal/Rheumatological Hx Musculoskeletal Disorders: Yes Hx Fractures: Yes - Gastrointestinal Hx Gastrointestinal Disorders: No - Genitourinary/Gynecological Hx Genitourinary Disorders: No - Psychiatric Hx Psychophysiologic Disorder: Yes Hx Depression: Yes Hx Substance Use: Yes - Past Surgical History Past Surgical History: No Previous - Surgical History Other/Comment: 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12 - Anesthesia Hx Anesthesia: Yes Hx Anesthesia Reactions: No Hx Malignant Hyperthermia: No - Suicidal Assessment Feels Threatened In Home Enviroment: No Family/Social History - Physician Review Nursing Documentation Reviewed: Yes Family/Social History: No Known Family HX Smoking Status: Heavy Smoker > 10 Cigarettes Daily Hx Alcohol Use: Yes Frequency of alcohol use: Daily Hx Substance Use: Yes Substance used: marijuana; ecstasy; ativan Hx Substance Use Treatment: No Allergies/Home Meds Allergies/Adverse Reactions: Allergies No Known Allergies Allergy (Verified 09/24/18 22:44) Review of Systems - Review of Systems Constitutional: Normal Eyes: Normal ENT: Normal Respiratory: Normal. absent: SOB, Cough Cardiovascular: Normal. absent: Chest Pain Gastrointestinal: Normal. absent: Abdominal Pain, Nausea, Vomiting Genitourinary Male: Normal Musculoskeletal: Normal. absent: Arthralgias Skin: Normal Neurological: Normal. absent: Headache, Dizziness Endocrine: Normal Hemo/Lymphatic: Normal Psychiatric: Normal Physical Exam Vital Signs Temp Pulse Resp BP Pulse Ox 09/24/18 15:53 97.9 F 79 16 120/82 98 Temperature: Afebrile Blood Pressure: Normal Pulse: Regular Respiratory Rate: Normal Appearance: Positive for: Well-Appearing, Non-Toxic, Comfortable Pain Distress: None Mental Status: Positive for: Alert and Oriented X 3 - Systems Exam Head: Present: Atraumatic, Normocephalic Pupils: Present: PERRL Extroacular Muscles: Present: EOMI Conjunctiva: Present: Normal Mouth: Present: Moist Mucous Membranes Pharnyx: Present: Normal. No: ERYTHEMA, EXUDATE, TONSILS ENLARGED Nose (External): Present: Atraumatic Nose (Internal): Present: Normal Inspection Neck: Present: Normal Range of Motion Respiratory/Chest: Present: Clear to Auscultation, Good Air Exchange. No: Respiratory Distress, Accessory Muscle Use Cardiovascular: Present: Regular Rate and Rhythm, Normal S1, S2, Peripheal Pulses Present. No: Murmurs Abdomen: Present: Normal Bowel Sounds. No: Tenderness, Distention, Peritoneal Signs, Rebound, Guarding Back: Present: Normal Inspection Upper Extremity: Present: Normal Inspection, Normal ROM, NORMAL PULSES, Capillary Refill < 2s. No: Cyanosis, Edema Lower Extremity: Present: Normal Inspection, NORMAL PULSES, Normal ROM, Capillary Refill < 2 s. No: Edema, CALF TENDERNESS Neurological: Present: GCS=15, CN II-XII Intact, Speech Normal, Motor Func Grossly Intact, Normal Sensory Function, Gait Normal. No: Other (tremor) Skin: Present: Warm, Dry, Normal Color. No: Rashes Lymphatic: No: Cervical Adenopathy Psychiatric: Present: Alert, Oriented x 3, Normal Insight, Normal Concentration, Anxious, Suicidal Ideation. No: Homicidal Ideation, Hallucinations Medical Decision Making ED Course and Treatment: Initial Plan: * EKG * CBC, CMP * Acetaminophen, Salicylate * Alcohol level * UA, culture * UDS * 1:1 * PES Eval 17:21 Marie from [facility] saw patient at bedside 17:30 CBC: wnl CMP: wnl Acetaminophen: neg Salicylate: neg Alcohol: 129 UA: wnl UDS: positive for benzodiazepines EKG: rate 82: NSR; normal intervals; Incomplete RBBB; no ST elevations or other signs of ischemia. Similar to prior EKG. Patient medically cleared for psychiatric disposition. 17:45 Marie ORONA, states that Dr. Hollie Orellana accepts patient for inpatient voluntary admission with diagnosis of alcohol use disorder, severe and major depressive disorder. Impression: Major Depressive Disorder Alcohol Use Disorder, Severe - Lab Interpretations Lab Results: 09/24/18 16:39 Lab Results 09/24/18 16:39: Alcohol, Quantitative 129 H 09/24/18 16:39: Salicylates < 1 L, Acetaminophen < 10.0 L 09/24/18 16:39: WBC 7.1, RBC 4.65, Hgb 14.9, Hct 43.6, MCV 93.8 D, MCH 32.0, MCHC 34.2, RDW 13.3, Plt Count 273, MPV 9.6, Gran % 51.6, Lymph % (Auto) 41.9 H, [place] % (Auto) 3.9, Eos % (Auto) 1.8, Baso % (Auto) 0.8, Gran # 3.68, Lymph # (Auto) 3.0, [place] # (Auto) 0.3, Eos # (Auto) 0.1, Baso # (Auto) 0.06 Disposition/Present on Arrival - Present on Arrival Any Indicators Present on Arrival: No History of DVT/PE: No History of Uncontrolled Diabetes: No Urinary Catheter: No History of Decub. Ulcer: No History Surgical Site Infection Following: None - Disposition Have Diagnosis and Disposition been Completed?: Yes Diagnosis: Alcohol use disorder, MDD (major depressive disorder) Disposition: HOSPITALIZED Disposition Time: 17:45 Patient Problems: Current Active Problems Problem Status Onset Alcohol use disorder Acute MDD (major depressive disorder) Chronic Condition: STABLE
[2018-09-24 17:33] LABS: URINE BILIRUBIN NEGATIVE (NEGATIVE); URINE BLOOD NEGATIVE (NEGATIVE); URINE GLUCOSE (UA) NEGATIVE (NEGATIVE); URINE LEUKOCYTE ESTERASE NEGATIVE Leu/uL (NEGATIVE); URINE PROTEIN NEGATIVE mg/dL (<30 mg/dL); URINE UROBILINOGEN 0.2 E.U./dL (<1 E.U./dL)
[2018-09-24 17:36] LABS: URINE APPEARANCE CLEAR (CLEAR); URINE COLOR YELLOW (YELLOW)
[2018-09-24 17:54] LABS: BARBITURATES, UR NEGATIVE (NEGATIVE); BENZODIAZEPINES, UR POSITIVE (NEGATIVE); OPIATES, UR NEGATIVE (NEGATIVE); PHENCYCLIDINE, UR NEGATIVE (NEGATIVE)
--- NOTE | 2018-09-24 19:19 | CARD ---
APPROVED REPORT Date of service: 09/24/2018 EKG Measurement Heart [id number] <Conclusion> Normal sinus rhythm Incomplete right bundle branch block Borderline ECG
--- NOTE | 2018-09-24 22:55 | PCM.BM ---
<Blanca House - Last Filed: 09/24/18 22:53> Treatment Plan Problems - Problems identified on initial assessmt Hopelessness/Helplessness Date Initiated: 09/24/18 Time Initiated: 22:53 Assessment reference: NA Status: Active Ineffective Coping Date Initiated: 09/24/18 Time Initiated: 22:54 Assessment reference: NA Status: Active Medication Nonadherence Date Initiated: 09/24/18 Time Initiated: 22:54 Assessment reference: NA Status: Active Altered Sleep Patterns Date Initiated: 09/24/18 Time Initiated: 22:54 Assessment reference: NA Status: Active Treatment assets and liabiliti Patient Assests: adapts well, cooperative, educated, ADL independent, good support system, negotiates basic needs, cognitively intact Patient Liabilities: financial problems, substance abuse - Milieu Protocol Maintain good personal hygiene: daily Encourage regular showers, daily Remind patient to perform daily oral care, daily Assist patient to perform ADL's Conduct patient checks and document Observation sheet: Q15 minutes Maintain personal safety: every shift Educate patient to report safety concerns to staff, every shift Monitor environment for contraband/sharps Medication safety: Monitor for expected outcome, potential side effects: every shift, Assess barriers to learning: every shift, Assess readiness for medication education: every shift Discharge/Continuing Care - Education Needs Education Needs: Patient Medication, Patient Diagnosis/Disease Process, Patient Coping Skills, Patient Community resources, Patient Activities of Daily Living, Patient Health Practices/Safety, Patient Aftercare Safety Plan - Discharge Discharge Criteria: Tolerates medication w/o severe side effects, Free of Suicidal thoughts, Normal sleep pattern, Ability to care for self, No longer exhibiting s/s of withdrawal, Reduction of target symptoms <Elisabeth Mi - Last Filed: 09/25/18 10:05> - Diagnosis (1) Alcohol use disorder Status: Acute Interventions: 09/25/18 10:05 * klonopin 1 mg q8 for alcohol withdrawals/anxiety, taper as tolerated. * Vistaril 50 mg po TID prn: anxiety * Naltrexone for alcohol cravings, patient must be clean from alcohol for at least 3-5 days. * Folic acid/MVI/thiamine supplements * Gabapentin 600 mg po TID * Trazodone 50 mg po hs prn: insomnia * Prozac 40 mg po daily for depression and anxiety * Nicotine 14 mg/24 hr DAILY for nicotine cravings (2) Anxiety Status: Acute Interventions: 09/25/18 10:05 * klonopin 1 mg q8 for alcohol withdrawals/anxiety, taper as tolerated. * Vistaril 50 mg po TID prn: anxiety * Naltrexone for alcohol cravings, patient must be clean from alcohol for at least 3-5 days. * Folic acid/MVI/thiamine supplements * Gabapentin 600 mg po TID * Trazodone 50 mg po hs prn: insomnia * Prozac 40 mg po daily for depression and anxiety * Nicotine 14 mg/24 hr DAILY for nicotine cravings (3) Depression Status: Acute Interventions: 09/25/18 10:05 * klonopin 1 mg q8 for alcohol withdrawals/anxiety, taper as tolerated. * Vistaril 50 mg po TID prn: anxiety * Naltrexone for alcohol cravings, patient must be clean from alcohol for at least 3-5 days. * Folic acid/MVI/thiamine supplements * Gabapentin 600 mg po TID * Trazodone 50 mg po hs prn: insomnia * Prozac 40 mg po daily for depression and anxiety * Nicotine 14 mg/24 hr DAILY for nicotine cravings <Digna Cunningham - Last Filed: 09/27/18 13:49> Family Contact Family involvement: Famliy/SO not involved <Marie Vinson - Last Filed: 09/28/18 12:11>
[2018-09-24] MEDS ORDERED: Magnesium Hydroxide Susp 30 ml UD PO PRN (23:00)
[2018-09-24] MEDS: Alum-Mag Hydrox-Simethicone Susp (30 mL) PO PRN (23:23)
[2018-09-25 07:38] LABS: GLUCOSE,FASTING 95 mg/dL (65-110); HDL CHOLESTEROL 35 mg/dL (29-60)
[2018-09-25 07:48] LABS: LDL CHOLESTEROL 76 mg/dL (0-129)
[2018-09-25] MEDS: Multivitamin Therapeutic Tab PO SCH (08:37)
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
[2018-09-26] MEDS: Multivitamin Therapeutic Tab PO SCH (09:16)
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
[2018-09-27] MEDS: Multivitamin Therapeutic Tab PO SCH (09:47)
--- NOTE | 2018-09-27 14:56 | PCM.PYCHPN ---
Psychiatric Progress Note - Psychiatric Progress Note Patient seen today, length of contact: 35 min Patient Chief Complaint: "my insurance was inactive". Problems Identified/Issues Discussed: Suicide/ homicide prevention, past psychiatric h/o, current psychiatric symptoms, medical problems, risk/benefits and alternatives of medications, medications compliance, coping strategies, substance abuse h/o, relapse prevention, importance of follow up with psychiatrist and therapist, discharge plan. Medical Problems: see HPI Diagnostic Results: 09/24/18 16:39 09/24/18 16:39 Lab Results 09/25/18 07:00: RPR Nonreactive 09/25/18 07:00: TSH 3rd Generation 3.06 09/25/18 07:00: Fasting Glucose 95, Triglycerides 1062 H, Cholesterol 242 H, LDL Cholesterol Direct 76, HDL Cholesterol 35 09/24/18 17:27: Urine Opiates Screen Negative, Urine Methadone Screen Negative, Ur Barbiturates Screen Negative, Ur Phencyclidine Scrn Negative, Ur Amphetamines Screen Negative, U Benzodiazepines Scrn Positive H, U Oth Cocaine Metabols Negative, U Cannabinoids Screen Negative 09/24/18 17:27: Urine Color Yellow, Urine Appearance Clear, Urine pH 7.0, Ur Specific [place] 1.020, Urine Protein Negative, Urine Glucose (UA) Negative, Urine Ketones Negative, Urine Blood Negative, Urine Nitrate Negative, Urine Bilirubin Negative, Urine Urobilinogen 0.2, Ur Leukocyte Esterase Negative 09/24/18 16:39: Alcohol, Quantitative 129 H 09/24/18 16:39: Salicylates < 1 L, Acetaminophen < 10.0 L 09/24/18 16:39: Sodium 143, Potassium 4.0, Chloride 107, Carbon Dioxide 25, Anion Gap 16, BUN 19, Creatinine 1.0, Est GFR ( Amer) > 60, Est GFR (Non- Af Amer) > 60, Random Glucose 122 H, Calcium 9.3, Total Bilirubin 0.3, AST 37, ALT 50, Alkaline Phosphatase 76, Total Protein 7.4, Albumin 4.2, Globulin 3.2, Albumin/Globulin Ratio 1.3 09/24/18 16:39: WBC 7.1, RBC 4.65, Hgb 14.9, Hct 43.6, MCV 93.8 D, MCH 32.0, MCHC 34.2, RDW 13.3, Plt Count 273, MPV 9.6, Gran % 51.6, Lymph % (Auto) 41.9 H, [place] % (Auto) 3.9, Eos % (Auto) 1.8, Baso % (Auto) 0.8, Gran # 3.68, Lymph # (Auto) 3.0, [place] # (Auto) 0.3, Eos # (Auto) 0.1, Baso # (Auto) 0.06 Vital Signs Temp Pulse Resp BP Pulse Ox 09/27/18 07:23 98.4 F 49 L 20 109/65 09/26/18 13:11 97.3 F L 09/26/18 07:43 97.5 F L 44 L 108/63 09/25/18 15:43 82 131/99 H 09/25/18 06:47 97.7 F 52 L 18 116/62 09/24/18 20:43 97.9 F 87 18 121/85 09/24/18 19:40 98 F 85 18 118/84 98 09/24/18 15:53 97.9 F 79 16 120/82 98 DSM 5 Symptoms Update: shortly patient is 27-year-old male, self reported history of depression, alcohol use disorder, self reported history of ADHD, one involuntary commitment to [facility], h/o leaving AGAINST MEDICAL ADVICE, chronic noncompliance with the medications and follow-up appointments, patient brought himself to the hospital for medication resumption, pt also relapsed on alcohol, pt reported being noncompliant with meds due to his insurance to be inactive. pt was d/c 09/16/18 with 2weeks supply of meds and one refill. pt was seen at the treatment team meeting, pt presented to be circumstantial, thought process is over inclusive, patient does not giving direct answers to questions. patient said that after discharged he attempted to go to [facility] but, due to his insurance being inactive, patient was not able to afford $200 for intake as well as patient reported that he ran short on the medications. Pt said that he did not know that he had another 2 weeks of supply was available in the pharmacy. At the same time most likely pt took more meds than prescribed because he supposed to have another week of supply of all of his meds. As per 's note patient presented to be remorseful and wanted to have help. Pt reported feeling lonely, and too impulsive and helpless. patient reported that this was not possible for him to have any alcohol withdrawal symptoms, "I was not drinking daily or anything like that" patient does not want to be on Sonata, requested trazodone to be prescribed to him for insomnia and depression,, overall patient tolerates medications well, no side effects observed or reported, aims 0, no EPS. Diagnostic Results: MDD with contribution of substance induced mood disorder Alcohol Dependency Alcohol withdrawal as per h/o? ADHD cannabis abuse Medication Change: Yes (trazodone at the nighttime, Sonata discontinued) Medical Record Reviewed: Yes Consults ordered or reviewed: would be considered Mental Status Examination - Cognitive Function Orientation: Person, Place, Situation Memory: Intact Attention: WNL Concentration: WNL Association: WN Fund of Knowledge: WNL - Mood Mood: Depressed, Anxious - Affect Affect: Constricted, Other (labile) - Speech Speech: Appropriate - Formal Thought Process Formal Thought Process: No Impairment - Suicidal Ideation Suicidal Ideation: No - Homicidal Ideation Homicidal Ideation: No Goal/Treatment Plan - Goal/Treatment Plan Need for Continued Stay: Remain at risks for inpatient hospitalization, Severe depression anxiety, Discharge may exacerbated symptoms, Failed transitioning, Severe functional impairment Progress Toward Problem(s) and Goals/Treatment Plan: Milieu/structure/supportive therapy Medical consult as needed SW consultation for discharge plan and social issues Med management all medications resumed Klonopin was decreased Trazodone resumed 50 mg at the nighttime for depression and insomnia Prozac resumed Vistaril resumed Family involvement Follow up on labs Will monitor closely Pt was educated about risk/benefits and alternatives of medications, coping strategies (safety plan, suicide prevention), relapse prevention, importance of follow up with psychiatrist and therapist, stay away from drugs/alcohol/smoking Estimated Date of D/C: 09/30/18
[2018-09-27] MEDS: Alum-Mag Hydrox-Simethicone Susp (30 mL) PO PRN (16:41)
[2018-09-28 06:55] VITALS: BP 115/67; PULSE 59; RESP 16; TEMP 98.5
[2018-09-28] MEDS: Multivitamin Therapeutic Tab PO SCH (10:09)
--- NOTE | 2018-09-28 15:55 | PCM.PYCHDC ---
Mental Status Examination - Mental Status Examination Orientation: Person, Place, Situation, Time Memory: Intact Mood: Neutral Affect: Broad (and mood congruent) Speech: Appropriate Attention: WNL Concentration: WNL Association: WNL Fund of Knowledge: WNL Formal Thought Process: No Impairment Description of patient's judgement and insight: Pt has improved insight into mental and medical illness, pt was compliant with medications and unit rules and regulations, pt was going to groups, was calm, cooperative, socially appropriate, no behavioral incidents, no agitation, no aggression. Psychotic Thoughts and Behaviors: Pt denied v/a/t hallucinations, denied paranoid ideations, pt does not appear to be psychotic, and thought process is goal directed. Suicidal Ideation: No Current Homicidal Ideation?: No Plan: pt adamantly denied thoughts of harming self or others denied intent or plan. Discharge Summary - Discharge Note Reason for Hospitalization: medications resumption Psychiatric History (includes Medical, Family, Personal Hx): [facility] history of alcohol use disorder and mood disorder Laboratory Data: 09/24/18 16:39 09/24/18 16:39 Lab Results 09/25/18 07:00: RPR Nonreactive 09/25/18 07:00: TSH 3rd Generation 3.06 09/25/18 07:00: Fasting Glucose 95, Triglycerides 1062 H, Cholesterol 242 H, LDL Cholesterol Direct 76, HDL Cholesterol 35 09/24/18 17:27: Urine Opiates Screen Negative, Urine Methadone Screen Negative, Ur Barbiturates Screen Negative, Ur Phencyclidine Scrn Negative, Ur Amphetamines Screen Negative, U Benzodiazepines Scrn Positive H, U Oth Cocaine Metabols Negative, U Cannabinoids Screen Negative 09/24/18 17:27: Urine Color Yellow, Urine Appearance Clear, Urine pH 7.0, Ur Specific [place] 1.020, Urine Protein Negative, Urine Glucose (UA) Negative, Urine Ketones Negative, Urine Blood Negative, Urine Nitrate Negative, Urine Bilirubin Negative, Urine Urobilinogen 0.2, Ur Leukocyte Esterase Negative 09/24/18 16:39: Alcohol, Quantitative 129 H 09/24/18 16:39: Salicylates < 1 L, Acetaminophen < 10.0 L 09/24/18 16:39: Sodium 143, Potassium 4.0, Chloride 107, Carbon Dioxide 25, Anion Gap 16, BUN 19, Creatinine 1.0, Est GFR ( Amer) > 60, Est GFR (Non- Af Amer) > 60, Random Glucose 122 H, Calcium 9.3, Total Bilirubin 0.3, AST 37, ALT 50, Alkaline Phosphatase 76, Total Protein 7.4, Albumin 4.2, Globulin 3.2, Albumin/Globulin Ratio 1.3 09/24/18 16:39: WBC 7.1, RBC 4.65, Hgb 14.9, Hct 43.6, MCV 93.8 D, MCH 32.0, MCHC 34.2, RDW 13.3, Plt Count 273, MPV 9.6, Gran % 51.6, Lymph % (Auto) 41.9 H, [place] % (Auto) 3.9, Eos % (Auto) 1.8, Baso % (Auto) 0.8, Gran # 3.68, Lymph # (Auto) 3.0, [place] # (Auto) 0.3, Eos # (Auto) 0.1, Baso # (Auto) 0.06 Vital Signs Temp Pulse Resp BP Pulse Ox 09/28/18 06:52 98.5 F 59 L 16 115/67 09/27/18 16:00 78 124/80 09/27/18 07:23 98.4 F 49 L 20 109/65 09/26/18 13:11 97.3 F L 09/26/18 07:43 97.5 F L 44 L 108/63 09/25/18 15:43 82 131/99 H 09/25/18 06:47 97.7 F 52 L 18 116/62 09/24/18 20:43 97.9 F 87 18 121/85 09/24/18 19:40 98 F 85 18 118/84 98 09/24/18 15:53 97.9 F 79 16 120/82 98 Consultations:: List each consultation separately and include: 1. Reason for request. 2. Findings. 3. Follow-up Consultations: patient is physically healthy did not require any medical consultation Summary of Hospital Course include:: 1. Description of specific treatment plan utilized for patients during their course of treatmen. 2. Summarize the time- course for resolution of acute symptoms and/or regressed behaviors. 3. Describe issues identified and worked on during hospitalization. 4. Describe medication utilized. 5. Describe medical problems identified and treated. 6. Reassessment of suicide risk Summary of Hospital Course: Patient was recently psychiatrically hospitalized from 09/07/18-09/16/18 on this unit. Patient has a lot of difficulty abstaining from alcohol and this has led to multiple recurrent issues in this life. Presently he is being treated for depression, anxiety and alcohol withdrawal. meds were resumed, patient was stabilized on the same set of the medication: clonazePAM [Klonopin] 1 mg PO BID Fluoxetine HCl [Prozac] 40 mg PO DAILY Folic Acid 1 mg PO DAILY Gabapentin [Neurontin] 600 mg PO TID hydrOXYzine Pamoate [Vistaril] 50 mg PO TID PRN Multimineral/Multivitamin [Therapeutic-M Tab] 1 tab PO 0800 #14 tab Naltrexone [Revia] 50 mg PO DAILY Nicotine 14 mg/24 hr [Nicoderm CQ] 1 each TD DAILY all Pantoprazole [Protonix EC Tab] 40 mg PO 0600,1600 Thiamine [Vitamin B1 Tab] 100 mg PO DAILY traZODone [Desyrel] 50 mg PO HS PRN #14 tab PRN Reason: Insomnia patient tolerated medications well, no side effects observed or reported, aims 0, no EPS. Patient reached maximum effect from this hospitalization and team presented for discharge because patient last depressed, was attending all groups, no agitation or aggression no psychosis. Discharge plan is dual diagnosis program at [facility] until patient insurance will be effective please see rn social work notes for more detailed information. Patient reported that he has future oriented plans, patient wants to stay with his boyfriend, patient wants to spend Thanksgiving with his family, patient wa nts to maintain his sobriety. At the time of the discharge pt denied been depressed, denied thoughts of harming self or others, denied psychotic symptoms, and pt does not appeared to be psychotic, denied been anxious, pt is not in imminent danger to self or others, pt was referred to dual diagnosis program at [facility], information about follow up appointment, time and address provided to the pt, it is patient responsibility to follow up with outpatient clinic, PMD as well as specialists ( see SW note for more detailed information). In case pt will need to obtain results of studies pending at discharge pt was provided with contact information of Psychiatric Inpatient unit [phone] as well as Medical Record Department [phone]. Naltrexone treatment Counseling about smoking and alcohol cessation provided AA meetings as well as smoking cessation treatment program information was provided by the pt was provided with prescriptions for all of medications (please see medication reconciliation form) Pt was educated about safety plan in case of worsening of symptoms or in case of suicidal or homicidal ideation call 911 or go to the nearest ER, also was educated to take meds as prescribed and stay away from drugs, pt verbalized understanding. see med reconciliation from the last admission - Diagnosis (1) Substance induced mood disorder Status: Chronic Priority: High (2) Alcohol use disorder Status: Chronic Priority: High - Final Diagnosis (DSM 5) Condition upon Discharge: STABLE Disposition: HOME/ ROUTINE Follow-up Treatment Plan: Milieu/structure/supportive therapy Medical consult as needed consultation for discharge plan and social issues Med management all medications resumed Klonopin was decreased Trazodone resumed 50 mg at the nighttime for depression and insomnia Prozac resumed Vistaril resumed Family involvement Follow up on labs Will monitor closely Pt was educated about risk/benefits and alternatives of medications, coping strategies (safety plan, suicide prevention), relapse prevention, importance of follow up with psychiatrist and therapist, stay away from drugs/alcohol/smoking - Smoking Cessation Smoking Cessation Medication prescribed: Yes - Antipsychotic Medications Pt discharged on 2 or more routine antipsychotic medications: No
== END 2018-09-28 15:02 | disposition home or self-care (01) | DRG 897 ==
LOC: ED 15:52 → ERH 17:57 → PSYC 19:55
PROVIDERS: ADMIT Psychiatry & Neurology Psychiatry; ATTEND Psychiatry & Neurology Psychiatry
PROC: GZ3ZZZZ Medication Management (ICD-10-PCS; principal; 2018-09-25)
DX: F19.94 Other psychoactive substance use, unspecified with psychoactive substance-induced mood disorder (principal); F32.9 Major depressive disorder, single episode, unspecified; F10.239 Alcohol dependence with withdrawal, unspecified; F41.9 Anxiety disorder, unspecified; G47.00 Insomnia, unspecified; Z91.14 Patient's other noncompliance with medication regimen

== ENCOUNTER 2018-10-03 18:25 | Emergency (ER) | payer MEDICAID, OTHER ==
[2018-10-03 18:52] VITALS: BMI 25.8
[2018-10-03] MEDS ORDERED: Sodium Chloride 0.9% 1,000 ML IV STA (18:53)
[2018-10-03 19:04] LABS: BASO # 0.05 K/mm3 (0.0-2.0); BASO % 0.5 % (0.0-3.0); EOS # 0.1 (0.0-0.7); EOS % 0.9 % (1.5-5.0); GRAN # 5.47 (1.4-6.5); GRAN % 51.6 % (50.0-68.0); HEMOGLOBIN 15.2 g/dL (14.0-18.0); LYMPH # 4.4 (1.2-3.4); LYMPH % 41.5 % (22.0-35.0); MEAN CELL VOLUME 95.3 fl (80.0-105.0); MEAN CORPUSCULAR HGB CONC 35.7 g/dl (31.0-37.0); MEAN PLATELET VOLUME 10.3 fl (7.0-11.0); MONO # 0.6 (0.1-0.6); MONO % 5.5 % (1.0-6.0); RBC 4.47 10^6/uL (3.5-6.1); RED CELL DISTRIBUTION WIDTH 13.5 % (11.5-14.5); WHITE BLOOD COUNT 10.6 10^3/uL (4.5-11.0)
[2018-10-03 19:26] LABS: ALB/GLOB RATIO 1.2 (1.1-1.8); ALBUMIN 4.3 g/dL (3.0-4.8); ALT/SGPT 40 U/L (7-56); AST/SGOT 67 U/L (17-59); BLOOD UREA NITROGEN 20 mg/dL (7-21); CALCIUM 8.7 mg/dL (8.4-10.5); GFR NON-AFRICAN AMERICAN > 60
[2018-10-03 19:33] LABS: FREE T4 0.66 ng/dL (0.78-2.19)
[2018-10-03 19:39] LABS: URINE BILIRUBIN NEGATIVE (NEGATIVE); URINE BLOOD NEGATIVE (NEGATIVE); URINE GLUCOSE (UA) NEGATIVE (NEGATIVE); URINE LEUKOCYTE ESTERASE NEGATIVE Leu/uL (NEGATIVE); URINE PROTEIN NEGATIVE mg/dL (<30 mg/dL); URINE UROBILINOGEN 0.2 E.U./dL (<1 E.U./dL)
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
[2018-10-03 19:46] LABS: URINE APPEARANCE CLEAR (CLEAR); URINE COLOR LIGHT YELLOW (YELLOW)
[2018-10-03 20:05] LABS: BARBITURATES, UR NEGATIVE (NEGATIVE); BENZODIAZEPINES, UR POSITIVE (NEGATIVE); OPIATES, UR NEGATIVE (NEGATIVE); PHENCYCLIDINE, UR NEGATIVE (NEGATIVE)
--- NOTE | 2018-10-03 20:19 | ED PDOC ---
Physical Exam Vital Signs Reviewed: Yes Vital Signs Temp Pulse Resp BP Pulse Ox 10/03/18 19:05 98 F 75 10/03/18 18:38 97.7 F 97 H 20 141/66 99 Temperature: Afebrile Blood Pressure: Normal Pulse: Tachycardic Respiratory Rate: Normal Appearance: Positive for: Well-Appearing, Non-Toxic Pain Distress: None Mental Status: Positive for: Alert and Oriented X 3 Medical Decision Making ED Course and Treatment: 10/03/18 20:17 Patient endorsed to me by . Pending CT scan. Awaiting sobriety and PES evaluation. No seizure activity in the Emergency department. Head CT without IV contrast: Dictated by:Jovon Leong M.D. FINDINGS: BRAIN: No acute intraparenchymal hemorrhage. No mass lesion. No CT evidence for acute territorial infarct. No midline shift or extra-axial collections. VENTRICLES:No hydrocephalus. ORBITS: The orbits are unremarkable. SINUSES AND MASTOIDS: Bilateral ethmoid sinusitis.The mastoid air cells are clear. BONES: No fracture. SOFT TISSUES: Unremarkable. IMPRESSION: Sinusitis. No acute intracranial abnormality. 10/04/18 13:32 Patient has been cleared by PES. Patient will follow up with [facility]. - Lab Interpretations Lab Results: 10/03/18 18:50 10/03/18 18:50 Lab Results 10/03/18 19:29: Urine Opiates Screen Negative, Urine Methadone Screen Negative, Ur Barbiturates Screen Negative, Ur Phencyclidine Scrn Negative, Ur Amphetamines Screen Negative, U Benzodiazepines Scrn Positive H, U Oth Cocaine Metabols Negative, U Cannabinoids Screen Negative 10/03/18 19:29: Urine Color Light yellow, Urine Appearance Clear, Urine pH 6.0, Ur Specific [place] 1.015, Urine Protein Negative, Urine Glucose (UA) Negative, Urine Ketones Negative, Urine Blood Negative, Urine Nitrate Negative, Urine Bilirubin Negative, Urine Urobilinogen 0.2, Ur Leukocyte Esterase Negative 10/03/18 18:50: Free T4 0.66 L, TSH 3rd Generation 2.94, Alcohol, Quantitative 3 12 H* 10/03/18 18:50: Sodium 145, Potassium 4.1, Chloride 113 H, Carbon Dioxide 19 L, Anion Gap 17, BUN 20, Creatinine 0.8, Est GFR ( Amer) > 60, Est GFR (Non- Af Amer) > 60, Random Glucose 113 H, Calcium 8.7, Magnesium 2.1, Total Bilirubin 0.9, AST 67 H D, ALT 40, Alkaline Phosphatase 138 H D, Total Protein 7.8, Albumin 4.3, Globulin 3.6, Albumin/Globulin Ratio 1.2 10/03/18 18:50: WBC 10.6 D, RBC 4.47, Hgb 15.2, Hct 42.6, MCV 95.3, MCH 34.0, MCHC 35.7, RDW 13.5, Plt Count 266, MPV 10.3, Gran % 51.6, Lymph % (Auto) 41.5 H , [place] % (Auto) 5.5, Eos % (Auto) 0.9 L, Baso % (Auto) 0.5, Gran # 5.47, Lymph # (Auto) 4.4 H, [place] # (Auto) 0.6, Eos # (Auto) 0.1, Baso # (Auto) 0.05 - RAD Interpretation Radiology Orders: 10/03/18 18:51 HEAD W/O CONTRAST [CT] Stat 10/03/18 18:53 CHEST PORTABLE [RAD] Stat - Medication Orders Current Medication Orders: Discontinued Medications Sodium Chloride (Sodium Chloride 0.9%) 1,000 mls @ 999 mls/hr IV .Q1H1M STA Stop: 10/03/18 19:53 Last Admin: 10/03/18 19:00 Dose: 999 mls/hr eMAR Start Stop Document 10/03/18 19:00 [facility] (Rec: 10/03/18 19:00 [facility] [id number]) Intravenous Solution Start Date 10/03/18 Start Time 19:00 End Date 10/03/18 End time 20:00 Total Infusion Time 60 Lorazepam (Ativan) 2 mg IVP ONCE ONE; Protocol Stop: 10/03/18 18:54 Last Admin: 10/03/18 19:00 Dose: 2 mg IVP Administration Document 10/03/18 19:00 [facility] (Rec: 10/03/18 19:01 [facility] [id number]) Charges for Administration # of IVP Administrations 1 - Scribe Statement The provider has reviewed the documentation as recorded by the Stanley Jay Provider Scribe Attestation: All medical record entries made by the Scribe were at my direction and personally dictated by me. I have reviewed the chart and agree that the record accurately reflects my personal performance of the history, physical exam, medical decision making, and the department course for this patient. I have also personally directed, reviewed, and agree with the discharge instructions and disposition. Disposition/Present on Arrival - Present on Arrival Any Indicators Present on Arrival: No History of DVT/PE: No History of Uncontrolled Diabetes: No Urinary Catheter: No History of Decub. Ulcer: No History Surgical Site Infection Following: None - Disposition Have Diagnosis and Disposition been Completed?: Yes Diagnosis: MDD (major depressive disorder), Alcohol abuse Disposition: HOME/ ROUTINE Disposition Time: 01:30 Condition: IMPROVED Discharge Instructions (ExitCare): Depression, Adult (DC), Alcohol Abuse and Alcoholism (DC) Additional Instructions: KYAW ZURITA, thank you for letting us take care of you today. The emergency medical care you received today was directed at your acute symptoms. If you were prescribed any medication, please fill it and take as directed. It may take several days for your symptoms to resolve. Return to the Emergency Department if your symptoms worsen, do not improve, or if you have any other problems. Please contact your doctor or call one of the physicians/clinics you have been referred to that are listed on the Patient Visit Information form that is incl uded in your discharge packet. Bring any paperwork you were given at discharge with you along with any medications you are taking to your follow up visit. Our treatment cannot replace ongoing medical care by a primary care provider outside of the emergency department. Thank you for allowing the [facility] team to be part of your care today. Follow up with [facility] as directed by our psychiatric team this week. Referrals: [facility] [Outside] - Follow up with primary [facility] [Outside] - Follow up with primary Forms: [employer] (Mongolian)
[2018-10-03 21:37] VITALS: RESP 18
[2018-10-04 01:43] VITALS: BP 136/82; PULSE 89; TEMP 98.5; O2SAT 99
--- NOTE | 2018-10-04 09:22 | RAD ---
Date of service: 10/03/2018 HISTORY: seizure COMPARISON: 09/07/2018 FINDINGS: LUNGS: No active pulmonary disease. PLEURA: No significant pleural effusion identified, no pneumothorax apparent. CARDIOVASCULAR: No aortic atherosclerotic calcification present. Normal cardiac size. No pulmonary vascular congestion. OSSEOUS STRUCTURES: No significant abnormalities. VISUALIZED UPPER ABDOMEN: Normal. OTHER FINDINGS: None. IMPRESSION: No active disease.
--- NOTE | 2018-10-04 09:37 | CARD ---
APPROVED REPORT Date of service: 10/03/2018 EKG Measurement Heart [id number] <Conclusion> Sinus tachycardia Incomplete right bundle branch block NSSTW changes No change
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
== END 2018-10-04 01:43 | disposition home or self-care (01) ==
LOC: ED 18:25
DX: F32.9 Major depressive disorder, single episode, unspecified (principal); F10.10 Alcohol abuse, uncomplicated; Y90.8 Blood alcohol level of 240 mg/100 ml or more
CPT/HCPCS: 70450; 71045; 80053; 80320; 80324; 80345; 80346; 80349; 80353; 80358; 80361; 81003; 83735; 83992; 84439; 84443; 85025; 90791; 93005; 96361; 96374; 99285; J2060; J2405; J7030

== ENCOUNTER 2018-10-06 23:59 | Observation (INO) | payer MEDICAID ==
[2018-10-07 00:55] LABS: BASO # 0.07 K/mm3 (0.0-2.0); BASO % 0.5 % (0.0-3.0); EOS # 0.2 (0.0-0.7); EOS % 1.6 % (1.5-5.0); GRAN # 6.14 (1.4-6.5); GRAN % 47.6 % (50.0-68.0); HEMOGLOBIN 15.5 g/dL (14.0-18.0); LYMPH # 5.6 (1.2-3.4); LYMPH % 43.5 % (22.0-35.0); MEAN CELL VOLUME 93.6 fl (80.0-105.0); MEAN CORPUSCULAR HEMOGLOBIN 32.2 pg (25.0-35.0); MEAN CORPUSCULAR HGB CONC 34.4 g/dl (31.0-37.0); MEAN PLATELET VOLUME 10.3 fl (7.0-11.0); MONO # 0.9 (0.1-0.6); MONO % 6.8 % (1.0-6.0); RBC 4.81 10^6/uL (3.5-6.1); RED CELL DISTRIBUTION WIDTH 13.5 % (11.5-14.5); WHITE BLOOD COUNT 12.9 10^3/uL (4.5-11.0)
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
[2018-10-07 00:59] LABS: PH,URINE 6.5 (4.7-8.0); URINE BILIRUBIN NEGATIVE (NEGATIVE); URINE BLOOD NEGATIVE (NEGATIVE); URINE GLUCOSE (UA) NEGATIVE (NEGATIVE); URINE LEUKOCYTE ESTERASE NEGATIVE Leu/uL (NEGATIVE); URINE PROTEIN NEGATIVE mg/dL (<30 mg/dL); URINE UROBILINOGEN 0.2 E.U./dL (<1 E.U./dL)
[2018-10-07 01:00] LABS: URINE APPEARANCE CLEAR (CLEAR); URINE COLOR STRAW (YELLOW)
[2018-10-07 01:05] LABS: ACETAMINOPHEN < 10.0 ug/ml (10.0-20.0); SALICYLATE < 1 mg/dL (2.0-20.0)
[2018-10-07 01:16] LABS: BENZODIAZEPINES, UR NEGATIVE (NEGATIVE)
[2018-10-07 01:37] LABS: BARBITURATES, UR NEGATIVE (NEGATIVE); OPIATES, UR NEGATIVE (NEGATIVE); PHENCYCLIDINE, UR NEGATIVE (NEGATIVE)
[2018-10-07 01:38] LABS: ALB/GLOB RATIO 1.2 (1.1-1.8); ALBUMIN 4.5 g/dL (3.0-4.8); ALT/SGPT 50 U/L (7-56); AST/SGOT 42 U/L (17-59); BLOOD UREA NITROGEN 17 mg/dL (7-21); CALCIUM 9.5 mg/dL (8.4-10.5); GFR NON-AFRICAN AMERICAN > 60
--- NOTE | 2018-10-07 08:52 | ED PDOC ---
Physical Exam Vital Signs Reviewed: Yes Vital Signs Temp Pulse Resp BP Pulse Ox 10/07/18 04:00 74 18 125/74 100 10/07/18 02:01 70 18 123/78 100 10/07/18 00:19 98 F 78 18 124/94 H 100 Temperature: Afebrile Blood Pressure: Hypertensive Pulse: Regular Respiratory Rate: Normal Appearance: Positive for: Well-Appearing, Non-Toxic, Comfortable Pain Distress: None Mental Status: Positive for: Alert and Oriented X 3 Finger Stick Blood Glucose: 76 Medical Decision Making ED Course and Treatment: 10/07/18 08:49 Case endorsed to me by Dr. Jon pending sobriety, reassessment, and discharge. Patient is sleeping comfortable in the emergency department. - Lab Interpretations Lab Results: 10/07/18 00:07 10/07/18 00:07 Lab Results 10/07/18 00:40: Urine Opiates Screen Negative, Urine Methadone Screen Negative, Ur Barbiturates Screen Negative, Ur Phencyclidine Scrn Negative, Ur Amphetamines Screen Negative, U Benzodiazepines Scrn Negative, U Oth Cocaine Metabols Negative, U Cannabinoids Screen Negative 10/07/18 00:40: Urine Color Straw, Urine Appearance Clear, Urine pH 6.5, Ur Specific [place] <= 1.005, Urine Protein Negative, Urine Glucose (UA) Negative, Urine Ketones Negative, Urine Blood Negative, Urine Nitrate Negative, Urine Bilirubin Negative, Urine Urobilinogen 0.2, Ur Leukocyte Esterase Negative 10/07/18 00:36: POC Glucose (mg/dL) 76 10/07/18 00:07: Alcohol, Quantitative 347 H* 10/07/18 00:07: Salicylates < 1 L, Acetaminophen < 10.0 L 10/07/18 00:07: Sodium 146, Potassium 3.9, Chloride 111 H, Carbon Dioxide 23, Anion Gap 16, BUN 17, Creatinine 1.0, Est GFR ( Amer) > 60, Est GFR (Non- Af Amer) > 60, Random Glucose 89, Calcium 9.5, Total Bilirubin 0.4, AST 42, ALT 50, Alkaline Phosphatase 124, Total Protein 8.4 H, Albumin 4.5, Globulin 3.9, Albumin/Globulin Ratio 1.2 10/07/18 00:07: WBC 12.9 H D, RBC 4.81, Hgb 15.5, Hct 45.0, MCV 93.6, MCH 32.2, MCHC 34.4, RDW 13.5, Plt Count 249, MPV 10.3, Gran % 47.6 L, Lymph % (Auto) 43.5 H, [place] % (Auto) 6.8 H, Eos % (Auto) 1.6, Baso % (Auto) 0.5, Gran # 6.14, Lymph # (Auto) 5.6 H, [place] # (Auto) 0.9 H, Eos # (Auto) 0.2, Baso # (Auto) 0.07 - Medication Orders Current Medication Orders: Discontinued Medications Lorazepam (Ativan) 1 mg IVP ONCE ONE; Protocol Stop: 10/07/18 00:40 Last Admin: 10/07/18 00:47 Dose: 1 mg IVP Administration Document 10/07/18 00:47 AD (Rec: 10/07/18 00:47 AD [id number]) Charges for Administration # of IVP Administrations 1 - Scribe Statement The provider has reviewed the documentation as recorded by the Stanley Pack Provider Scribe Attestation: All medical record entries made by the Stanley were at my direction and personally dictated by me. I have reviewed the chart and agree that the record accurately reflects my personal performance of the history, physical exam, medical decision making, and the department course for this patient. I have also personally directed, reviewed, and agree with the discharge instructions and disposition. Disposition/Present on Arrival - Present on Arrival Any Indicators Present on Arrival: No History of DVT/PE: No History of Uncontrolled Diabetes: No Urinary Catheter: No History of Decub. Ulcer: No History Surgical Site Infection Following: None - Disposition Have Diagnosis and Disposition been Completed?: Yes Diagnosis: Alcohol withdrawal Disposition: HOSPITALIZED Disposition Time: 11:00 Patient Problems: Current Active Problems Problem Status Onset Alcohol intoxication Acute Condition: FAIR
[2018-10-07] MEDS ORDERED: Magnesium Sulfate 2 gm/50 ml 2 GM/50 ML BAG IVPB ONE (11:38)
[2018-10-07] MEDS ORDERED: Folic Acid 1 MG, Thiamine 100 MG, Multivitamin (MVI) 10 ML in Dextrose 5% In Water 1,00... IV SCH (11:45)
--- NOTE | 2018-10-07 13:44 | RAD ---
Date of service: 10/07/2018 HISTORY: leukocytosis COMPARISON: 10/03/2018 FINDINGS: LUNGS: No active pulmonary disease. PLEURA: No significant pleural effusion identified, no pneumothorax apparent. CARDIOVASCULAR: No aortic atherosclerotic calcification present. Normal cardiac size. No pulmonary vascular congestion. OSSEOUS STRUCTURES: No significant abnormalities. VISUALIZED UPPER ABDOMEN: Normal. OTHER FINDINGS: None. IMPRESSION: No active disease.
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
[2018-10-07 23:15] VITALS: BMI 29.0
[2018-10-07] MEDS ORDERED: Pneumococcal 23-Valent Vaccine IM ONE (23:15)
[2018-10-07] MEDS ORDERED: Influenza Vaccine 60 mcg/0.5 mL SYR (4YR UP) IM ONE (23:15)
[2018-10-08] MEDS: Pantoprazole 40 mg EC Tab PO SCH (05:16)
[2018-10-08 06:21] LABS: BASO # 0.07 K/mm3 (0.0-2.0); BASO % 0.8 % (0.0-3.0); EOS # 0.3 (0.0-0.7); EOS % 3.3 % (1.5-5.0); GRAN # 4.04 (1.4-6.5); GRAN % 47.8 % (50.0-68.0); HEMOGLOBIN 14.7 g/dL (14.0-18.0); LYMPH # 3.7 (1.2-3.4); LYMPH % 43.1 % (22.0-35.0); MEAN CELL VOLUME 93.6 fl (80.0-105.0); MEAN CORPUSCULAR HEMOGLOBIN 32.4 pg (25.0-35.0); MEAN CORPUSCULAR HGB CONC 34.6 g/dl (31.0-37.0); MEAN PLATELET VOLUME 9.9 fl (7.0-11.0); MONO # 0.4 (0.1-0.6); RBC 4.54 10^6/uL (3.5-6.1); RED CELL DISTRIBUTION WIDTH 13.5 % (11.5-14.5); WHITE BLOOD COUNT 8.5 10^3/uL (4.5-11.0)
[2018-10-08 07:19] LABS: ALB/GLOB RATIO 1.2 (1.1-1.8); ALBUMIN 3.8 g/dL (3.0-4.8); ALT/SGPT 44 U/L (7-56); AST/SGOT 41 U/L (17-59); BLOOD UREA NITROGEN 20 mg/dL (7-21); CALCIUM 8.7 mg/dL (8.4-10.5); GFR NON-AFRICAN AMERICAN > 60
[2018-10-08] MEDS: Multivitamin With Minerals Tab PO SCH (09:01)
[2018-10-08 17:02] VITALS: O2SAT 96
--- NOTE | 2018-10-08 19:59 | CARD ---
APPROVED REPORT Date of service: 10/07/2018 EKG Measurement Heart [id number] <Conclusion> Normal sinus rhythm Incomplete right bundle branch block Borderline ECG
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
[2018-10-09 06:22] LABS: ALB/GLOB RATIO 1.2 (1.1-1.8); ALBUMIN 3.7 g/dL (3.0-4.8); ALT/SGPT 42 U/L (7-56); AST/SGOT 40 U/L (17-59); BLOOD UREA NITROGEN 17 mg/dL (7-21); CALCIUM 8.8 mg/dL (8.4-10.5); GFR NON-AFRICAN AMERICAN > 60
[2018-10-09] MEDS: Pantoprazole 40 mg EC Tab PO SCH (06:44)
[2018-10-09 06:58] LABS: HEMOGLOBIN 13.7 g/dL (14.0-18.0); MEAN CELL VOLUME 94.2 fl (80.0-105.0); MEAN CORPUSCULAR HEMOGLOBIN 31.6 pg (25.0-35.0); MEAN CORPUSCULAR HGB CONC 33.5 g/dl (31.0-37.0); RBC 4.34 10^6/uL (3.5-6.1); WHITE BLOOD COUNT 7.5 10^3/uL (4.5-11.0)
[2018-10-09 06:59] LABS: GRAN % 47.6 % (50.0-68.0); LYMPH % 41.8 % (22.0-35.0); MEAN PLATELET VOLUME 11.1 fl (7.0-11.0); MONO % 6.3 % (1.0-6.0); RED CELL DISTRIBUTION WIDTH 13.3 % (11.5-14.5)
[2018-10-09 07:00] LABS: BASO % 0.4 % (0.0-3.0); EOS % 3.9 % (1.5-5.0); GRAN # 3.56 (1.4-6.5)
[2018-10-09 07:01] LABS: BASO # 0.03 K/mm3 (0.0-2.0); EOS # 0.3 (0.0-0.7); LYMPH # 3.1 (1.2-3.4); MONO # 0.5 (0.1-0.6)
[2018-10-09 08:36] VITALS: BP 116/77; RESP 18; TEMP 97.5
[2018-10-09] MEDS: Multivitamin With Minerals Tab PO SCH (10:25)
[2018-10-09 12:10] VITALS: PULSE 74
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
== END 2018-10-09 14:03 | disposition home or self-care (01) ==
LOC: ED 23:59 → ERH 10-07 11:42 → 3RSO 10-07 17:50
PROVIDERS: ADMIT Internal Medicine; ATTEND Internal Medicine
DX: F10.239 Alcohol dependence with withdrawal, unspecified (principal); F10.229 Alcohol dependence with intoxication, unspecified; D72.829 Elevated white blood cell count, unspecified; F17.210 Nicotine dependence, cigarettes, uncomplicated; F32.89 Other specified depressive episodes; F41.9 Anxiety disorder, unspecified; G47.00 Insomnia, unspecified; R56.9 Unspecified convulsions; Z83.3 Family history of diabetes mellitus; Z90.49 Acquired absence of other specified parts of digestive tract; Z91.14 Patient's other noncompliance with medication regimen; F14.10 Cocaine abuse, uncomplicated; F12.10 Cannabis abuse, uncomplicated; F11.10 Opioid abuse, uncomplicated; R40.2412 Glasgow coma scale score 13-15, at arrival to emergency department; Y90.8 Blood alcohol level of 240 mg/100 ml or more; S01.112D Laceration without foreign body of left eyelid and periocular area, subsequent encounter
CPT/HCPCS: 36415; 71045; 80053; 80320; 80324; 80329; 80345; 80346; 80349; 80353; 80358; 80361; 81003; 82948; 83735; 83992; 84100; 84145; 85025; 93005; 96374; 96375; 96376; 99285; G0378; J2060; J3411; J7070

== ENCOUNTER 2018-10-09 19:14 | Emergency (ER) | payer MEDICAID ==
[2018-10-09 19:15] VITALS: BMI 29.0
[2018-10-09] MEDS ORDERED: Multivitamin (MVI) 10 ML, Thiamine 100 MG, Folic Acid 1 MG in Sodium Chloride 0.9% 1,00... IV ONE (19:27)
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
[2018-10-09 19:53] LABS: HEMOGLOBIN 15.3 g/dL (14.0-18.0); MEAN CELL VOLUME 94.1 fl (80.0-105.0); MEAN CORPUSCULAR HEMOGLOBIN 32.1 pg (25.0-35.0); MEAN CORPUSCULAR HGB CONC 34.2 g/dl (31.0-37.0); MEAN PLATELET VOLUME 10.7 fl (7.0-11.0); RBC 4.76 10^6/uL (3.5-6.1); RED CELL DISTRIBUTION WIDTH 13.5 % (11.5-14.5)
[2018-10-09 20:49] LABS: BARBITURATES, UR NEGATIVE (NEGATIVE); BENZODIAZEPINES, UR POSITIVE (NEGATIVE); OPIATES, UR NEGATIVE (NEGATIVE); PHENCYCLIDINE, UR NEGATIVE (NEGATIVE)
[2018-10-09 20:49] LABS: ALB/GLOB RATIO 1.2 (1.1-1.8); ALBUMIN 4.7 g/dL (3.0-4.8); ALT/SGPT 39 U/L (7-56); AST/SGOT 50 U/L (17-59); BLOOD UREA NITROGEN 14 mg/dL (7-21); CALCIUM 9.1 mg/dL (8.4-10.5); GFR NON-AFRICAN AMERICAN > 60; TROPONIN I 0.02 ng/mL
[2018-10-09 21:48] LABS: CK-MB 1.7 ng/mL (0.0-3.6)
[2018-10-10 02:47] VITALS: BP 132/81; PULSE 81; RESP 16; TEMP 98.9; O2SAT 96
--- NOTE | 2018-10-10 09:37 | RAD ---
Date of service: 10/09/2018 HISTORY: ALCOHOL WITHDRAWAL COMPARISON: Comparison chest 10/07/2018. FINDINGS: LUNGS: Poor inspiration with crowded bronchovascular markings and mild bibasilar atelectasis. PLEURA: No significant pleural effusion identified, no pneumothorax apparent. CARDIOVASCULAR: No aortic atherosclerotic calcification present. Cardiomegaly.. No pulmonary vascular congestion. OSSEOUS STRUCTURES: No significant abnormalities. VISUALIZED UPPER ABDOMEN: Normal. OTHER FINDINGS: None. IMPRESSION: Poor inspiration with crowded bronchovascular markings and mild bibasilar atelectasis
--- NOTE | 2018-10-10 22:26 | CARD ---
APPROVED REPORT Date of service: 10/09/2018 EKG Measurement Heart [id number] <Conclusion> Normal sinus rhythm Incomplete right bundle branch block Borderline ECG
== END 2018-10-10 01:15 | disposition home or self-care (01) ==
LOC: ED 19:14
DX: F10.129 Alcohol abuse with intoxication, unspecified (principal)
CPT/HCPCS: 71045; 80053; 80320; 80324; 80345; 80346; 80349; 80353; 80358; 80361; 82550; 82553; 82948; 83615; 83992; 84484; 85027; 93005; 96365; 96375; 99285; J2060; J3411; J7030

== ENCOUNTER 2018-10-11 01:41 | Observation (INO) | payer MEDICAID ==
[2018-10-11 02:05] VITALS: BMI 29.4
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
[2018-10-11] MEDS ORDERED: Sodium Chloride 0.9% 1,000 ML IV SCH (02:45)
[2018-10-11 03:18] LABS: ACETAMINOPHEN < 10.0 ug/ml (10.0-20.0); SALICYLATE < 1 mg/dL (2.0-20.0)
[2018-10-11 03:23] LABS: ALB/GLOB RATIO 1.4 (1.1-1.8); ALBUMIN 4.3 g/dL (3.0-4.8); ALT/SGPT 60 U/L (7-56); AST/SGOT 52 U/L (17-59); BLOOD UREA NITROGEN 18 mg/dL (7-21); CALCIUM 9.6 mg/dL (8.4-10.5); GFR NON-AFRICAN AMERICAN > 60
[2018-10-11 03:29] LABS: HEMOGLOBIN 14.1 g/dL (14.0-18.0); MEAN CELL VOLUME 94.1 fl (80.0-105.0); MEAN CORPUSCULAR HEMOGLOBIN 31.8 pg (25.0-35.0); MEAN CORPUSCULAR HGB CONC 33.7 g/dl (31.0-37.0); MEAN PLATELET VOLUME 10.3 fl (7.0-11.0); RBC 4.44 10^6/uL (3.5-6.1); RED CELL DISTRIBUTION WIDTH 13.8 % (11.5-14.5); WHITE BLOOD COUNT 10.1 10^3/uL (4.5-11.0)
--- NOTE | 2018-10-11 05:11 | CP.PCM.PN ---
Subjective - Date & Time of Evaluation Date of Evaluation: 10/11/18 Time of Evaluation: 05:10 - Subjective Subjective: # 18 angiocat was inserted in left external jugular vein. Objective - Vital Signs/Intake and Output Vital Signs (last 24 hours): Temp Pulse Resp BP Pulse Ox 97.9 F 89 18 142/82 92 L 10/11/18 02:15 10/11/18 04:55 10/11/18 04:55 10/11/18 04:55 10/11/18 04:55 - Medications Medications: Current Medications Sodium Chloride (Sodium Chloride 0.9%) 1,000 mls @ 100 mls/hr IV .Q10H LAWSON Last Admin: 10/11/18 03:03 Dose: 100 mls/hr Folic Acid 1 mg/ Thiamine HCl 100 mg/ Multivitamins/Vitamin C 10 ml/ Dextrose 1,011.2 mls @ 100 mls/hr IV .Q10H7M LAWSON Lorazepam (Ativan) 2 mg IVP Q6H PRN; Protocol PRN Reason: Symptoms of alcohol withdrawl Pantoprazole Sodium (Protonix Inj) 40 mg IVP DAILY LAWSON - Labs Labs: 10/11/18 02:51 10/11/18 02:51
[2018-10-11] MEDS: Folic Acid 1 MG, Thiamine 100 MG, Multivitamin (MVI) 10 ML in Dextrose 5% In Water 1,00... IV SCH ×2 (06:13→21:05)
--- NOTE | 2018-10-11 09:36 | CT ---
Date of service: 10/11/2018 PROCEDURE: CT HEAD WITHOUT CONTRAST. HISTORY: overdose COMPARISON: None available. TECHNIQUE: Axial computed tomography images were obtained through the head/brain without intravenous contrast. Radiation dose: Total exam DLP = 844.17 mGy-cm. This CT exam was performed using one or more of the following dose reduction techniques: Automated exposure control, adjustment of the mA and/or kV according to patient size, and/or use of iterative reconstruction technique. FINDINGS: HEMORRHAGE: No intracranial hemorrhage. BRAIN: No mass effect or edema. No atrophy or chronic microvascular ischemic changes. VENTRICLES: Unremarkable. No hydrocephalus. CALVARIUM: Unremarkable. PARANASAL SINUSES: Unremarkable as visualized. No significant inflammatory changes. MASTOID AIR CELLS: Unremarkable as visualized. No inflammatory changes. OTHER FINDINGS: None. IMPRESSION: Normal CT of the Head.
--- NOTE | 2018-10-11 09:37 | RAD ---
Date of service: 10/11/2018 HISTORY: fever COMPARISON: 10/09/2018 FINDINGS: LUNGS: No active pulmonary disease. PLEURA: No significant pleural effusion identified, no pneumothorax apparent. CARDIOVASCULAR: No aortic atherosclerotic calcification present. Normal cardiac size. No pulmonary vascular congestion. OSSEOUS STRUCTURES: No significant abnormalities. VISUALIZED UPPER ABDOMEN: Normal. OTHER FINDINGS: None. IMPRESSION: No active disease.
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
--- NOTE | 2018-10-11 10:36 | CP.CCUPN ---
<Norman Richard - Last Filed: 10/11/18 10:33> CCU Subjective - Physician Review Subjective (Free Text): Patient seen and evaluated bedside. Patient is alert, awake, oriented and answering questions appropriately. Patient denies chest pain, shortness of breath, nausea, vomiting, or any other complaints at this time. 10/11/18 10:33 CCU Objective - Vital Signs / Intake & Output Vital Signs (Last 4 hours): Vital Signs Temp Pulse Resp BP Pulse Ox 10/11/18 09:23 98.2 F 73 16 100/62 99 10/11/18 07:25 68 16 134/77 100 Intake and Output (Last 8hrs): Intake & Output 10/10/18 10/11/18 10/11/18 22:59 06:59 14:59 Weight 205 lb - Physical Exam Head: Positive for: Atraumatic, Normocephalic Pupils: Positive for: PERRL Extroacular Muscles: Positive for: EOMI Conjunctiva: Positive for: Normal Mouth: Positive for: Moist Mucous Membranes Neck: Positive for: Normal Range of Motion Respiratory/Chest: Positive for: Clear to Auscultation, Good Air Exchange. Negative for: Respiratory Distress, Accessory Muscle Use Cardiovascular: Positive for: Regular Rate and Rhythm, Normal S1, S2. Negative for: Murmurs Abdomen: Negative for: Tenderness, Distention, Peritoneal Signs Back: Positive for: Normal Inspection Upper Extremity: Positive for: Normal Inspection. Negative for: Cyanosis, Edema Lower Extremity: Positive for: Normal Inspection. Negative for: Edema Neurological: Positive for: CN II-XII Intact Skin: Positive for: Warm, Dry, Normal Color. Negative for: Rashes Psychiatric: Positive for: Oriented x 3 - Medications Active Medications: Active Medications Generic Name Dose Route Start Last Admin Trade Name Freq PRN Reason Stop Dose Admin Folic Acid 1 mg/ Thiamine HCl 1,011.2 mls @ 100 mls/hr 10/11/18 05:00 10/11/18 06:13 100 mg/ Multivitamins/Vitamin IV 100 mls/hr C 10 ml/ Dextrose .Q10H7M LAWSON Administration Lorazepam 2 mg 10/11/18 04:52 Ativan IVP Q6H PRN Symptoms of alcohol withdrawl Protocol Pantoprazole Sodium 40 mg 10/11/18 10:00 10/11/18 09:10 Protonix Inj IVP 40 mg DAILY LAWSON Administration - Patient Studies Lab Studies: Lab Studies 10/11/18 10/11/18 10/11/18 Range/Units 02:51 02:51 02:51 WBC 10.1 (4.5-11.0) 10^3/uL RBC 4.44 (3.5-6.1) 10^6/uL Hgb 14.1 (14.0-18.0) g/dL Hct 41.8 L (42.0-52.0) % MCV 94.1 (80.0-105.0) fl MCH 31.8 (25.0-35.0) pg MCHC 33.7 (31.0-37.0) g/dl RDW 13.8 (11.5-14.5) % Plt Count 192 (120.0-450.0) 10^3/uL MPV 10.3 (7.0-11.0) fl Sodium (132-148) mmol/L Potassium (3.6-5.0) mmol/L Chloride (98-107) mmol/L Carbon Dioxide (21-33) mmol/L Anion Gap (10-20) BUN (7-21) mg/dL Creatinine (0.8-1.5) mg/dl Est GFR ( Amer) Est GFR (Non-Af Amer) Random Glucose (70-110) mg/dL Calcium (8.4-10.5) mg/dL Total Bilirubin (0.2-1.3) mg/dL AST (17-59) U/L ALT (7-56) U/L Alkaline Phosphatase (38-126) U/L Total Protein (5.8-8.3) g/dL Albumin (3.0-4.8) g/dL Globulin gm/dL Albumin/Globulin Ratio (1.1-1.8) Salicylates < 1 L (2.0-20.0) mg/dL Acetaminophen < 10.0 L (10.0-20.0) ug/ml Alcohol, Quantitative 253 H (0-10) mg/dL 10/11/18 Range/Units 02:51 WBC (4.5-11.0) 10^3/uL RBC (3.5-6.1) 10^6/uL Hgb (14.0-18.0) g/dL Hct (42.0-52.0) % MCV (80.0-105.0) fl MCH (25.0-35.0) pg MCHC (31.0-37.0) g/dl RDW (11.5-14.5) % Plt Count (120.0-450.0) 10^3/uL MPV (7.0-11.0) fl Sodium 143 (132-148) mmol/L Potassium 3.9 (3.6-5.0) mmol/L Chloride 110 H (98-107) mmol/L Carbon Dioxide 22 (21-33) mmol/L Anion Gap 16 (10-20) BUN 18 (7-21) mg/dL Creatinine 0.8 (0.8-1.5) mg/dl Est GFR ( Amer) > 60 Est GFR (Non-Af Amer) > 60 Random Glucose 99 (70-110) mg/dL Calcium 9.6 (8.4-10.5) mg/dL Total Bilirubin 0.3 (0.2-1.3) mg/dL AST 52 (17-59) U/L ALT 60 H (7-56) U/L Alkaline Phosphatase 123 (38-126) U/L Total Protein 7.4 (5.8-8.3) g/dL Albumin 4.3 (3.0-4.8) g/dL Globulin 3.0 gm/dL Albumin/Globulin Ratio 1.4 (1.1-1.8) Salicylates (2.0-20.0) mg/dL Acetaminophen (10.0-20.0) ug/ml Alcohol, Quantitative (0-10) mg/dL Laboratory Results - last 24 hr 10/11/18 10/11/18 10/11/18 02:51 02:51 02:51 WBC 10.1 RBC 4.44 Hgb 14.1 Hct 41.8 L MCV 94.1 MCH 31.8 MCHC 33.7 RDW 13.8 Plt Count 192 MPV 10.3 Sodium 143 Potassium 3.9 Chloride 110 H Carbon Dioxide 22 Anion Gap 16 BUN 18 Creatinine 0.8 Est GFR ( Amer) > 60 Est GFR (Non-Af Amer) > 60 Random Glucose 99 Calcium 9.6 Total Bilirubin 0.3 AST 52 ALT 60 H Alkaline Phosphatase 123 Total Protein 7.4 Albumin 4.3 Globulin 3.0 Albumin/Globulin Ratio 1.4 Salicylates Acetaminophen Alcohol, Quantitative 253 H 10/11/18 02:51 WBC RBC Hgb Hct MCV MCH MCHC RDW Plt Count MPV Sodium Potassium Chloride Carbon Dioxide Anion Gap BUN Creatinine Est GFR ( Amer) Est GFR (Non-Af Amer) Random Glucose Calcium Total Bilirubin AST ALT Alkaline Phosphatase Total Protein Albumin Globulin Albumin/Globulin Ratio Salicylates < 1 L Acetaminophen < 10.0 L Alcohol, Quantitative EKG/Cardiology Studies: Cardiology / EKG Studies 10/11/18 ELECTROCARDIOGRAM Stat Comment: Reason For Exam: overdose 10/11/18 10:00 ELECTROCARDIOGRAM Routine Comment: Reason For Exam: Repeat EKG; ?septal abnormality Review of Systems - EENT Eyes: absent: Change in Vision - Cardiovascular Cardiovascular: absent: Chest Pain, Dyspnea - Respiratory Respiratory: absent: Cough, Dyspnea - Gastrointestinal Gastrointestinal: absent: Nausea, Vomiting - Neurological Neurological: absent: Disequilibrium, Dizziness, Numbness, Headaches, Tingling, Weakness Critical Care Progress Note - Nutrition Nutrition: Nutrition Category Date Time Status NPO Diet [DIET] Diets 10/11/18 Breakfast Ordered Assessment/Plan - Assessment and Plan (Free Text) Assessment: 28 year old male with past medical history significant for polysubstance abuse (including benzodiazepines, heroin, cocaine and marijuana), alcohol abuse and tobacco use disorder who presents with acute alcohol intoxication and questionable Klonopin OD. Patient is alert, awake, oriented x3 and answering questions appropriately. Patient hemodynamically stable and okay to downgrade to telemetry. Plan: Plan: 1. Acute Alcohol Intoxication -Alcohol (serum): 253 -Ativan 2mg IVP Q6H PRN -Banana Bag -CIWA Q4 -Aspiration, Fall and Seizure precautions 2. Klonopin OD -AAOx3 -Currently HDS 3. History of Head Trauma -head CT negative for acute intracranial pathology GI Prophylaxis: Protonix DVT Prophylaxis: SCD's Patient is okay for downgrade to telemetry. <Rush Sumner - Last Filed: 10/11/18 11:06> CCU Objective - Vital Signs / Intake & Output Vital Signs (Last 4 hours): Vital Signs Temp Pulse Resp BP Pulse Ox 10/11/18 09:23 98.2 F 73 16 100/62 99 12/03/18 07:25 68 16 134/77 100 Intake and Output (Last 8hrs): Intake & Output 10/10/18 10/11/18 10/11/18 22:59 06:59 14:59 Weight 205 lb - Medications Active Medications: Active Medications Generic Name Dose Route Start Last Admin Trade Name Freq PRN Reason Stop Dose Admin Folic Acid 1 mg/ Thiamine HCl 1,011.2 mls @ 100 mls/hr 10/11/18 05:00 10/11/18 06:13 100 mg/ Multivitamins/Vitamin IV 100 mls/hr C 10 ml/ Dextrose .Q10H7M LAWSON Administration Lorazepam 2 mg 10/11/18 04:52 Ativan IVP Q6H PRN Symptoms of alcohol withdrawl Protocol Pantoprazole Sodium 40 mg 10/11/18 10:00 10/11/18 09:10 Protonix Inj IVP 40 mg DAILY LAWSON Administration - Patient Studies Lab Studies: Lab Studies 10/11/18 10/11/18 10/11/18 Range/Units 02:51 02:51 02:51 WBC 10.1 (4.5-11.0) 10^3/uL RBC 4.44 (3.5-6.1) 10^6/uL Hgb 14.1 (14.0-18.0) g/dL Hct 41.8 L (42.0-52.0) % MCV 94.1 (80.0-105.0) fl MCH 31.8 (25.0-35.0) pg MCHC 33.7 (31.0-37.0) g/dl RDW 13.8 (11.5-14.5) % Plt Count 192 (120.0-450.0) 10^3/uL MPV 10.3 (7.0-11.0) fl Sodium (132-148) mmol/L Potassium (3.6-5.0) mmol/L Chloride (98-107) mmol/L Carbon Dioxide (21-33) mmol/L Anion Gap (10-20) BUN (7-21) mg/dL Creatinine (0.8-1.5) mg/dl Est GFR ( Amer) Est GFR (Non-Af Amer) Random Glucose (70-110) mg/dL Calcium (8.4-10.5) mg/dL Total Bilirubin (0.2-1.3) mg/dL AST (17-59) U/L ALT (7-56) U/L Alkaline Phosphatase (38-126) U/L Total Protein (5.8-8.3) g/dL Albumin (3.0-4.8) g/dL Globulin gm/dL Albumin/Globulin Ratio (1.1-1.8) Salicylates < 1 L (2.0-20.0) mg/dL Acetaminophen < 10.0 L (10.0-20.0) ug/ml Alcohol, Quantitative 253 H (0-10) mg/dL 10/11/18 Range/Units 02:51 WBC (4.5-11.0) 10^3/uL RBC (3.5-6.1) 10^6/uL Hgb (14.0-18.0) g/dL Hct (42.0-52.0) % MCV (80.0-105.0) fl MCH (25.0-35.0) pg MCHC (31.0-37.0) g/dl RDW (11.5-14.5) % Plt Count (120.0-450.0) 10^3/uL MPV (7.0-11.0) fl Sodium 143 (132-148) mmol/L Potassium 3.9 (3.6-5.0) mmol/L Chloride 110 H (98-107) mmol/L Carbon Dioxide 22 (21-33) mmol/L Anion Gap 16 (10-20) BUN 18 (7-21) mg/dL Creatinine 0.8 (0.8-1.5) mg/dl Est GFR ( Amer) > 60 Est GFR (Non-Af Amer) > 60 Random Glucose 99 (70-110) mg/dL Calcium 9.6 (8.4-10.5) mg/dL Total Bilirubin 0.3 (0.2-1.3) mg/dL AST 52 (17-59) U/L ALT 60 H (7-56) U/L Alkaline Phosphatase 123 (38-126) U/L Total Protein 7.4 (5.8-8.3) g/dL Albumin 4.3 (3.0-4.8) g/dL Globulin 3.0 gm/dL Albumin/Globulin Ratio 1.4 (1.1-1.8) Salicylates (2.0-20.0) mg/dL Acetaminophen (10.0-20.0) ug/ml Alcohol, Quantitative (0-10) mg/dL Laboratory Results - last 24 hr 10/11/18 10/11/18 10/11/18 02:51 02:51 02:51 WBC 10.1 RBC 4.44 Hgb 14.1 Hct 41.8 L MCV 94.1 MCH 31.8 MCHC 33.7 RDW 13.8 Plt Count 192 MPV 10.3 Sodium 143 Potassium 3.9 Chloride 110 H Carbon Dioxide 22 Anion Gap 16 BUN 18 Creatinine 0.8 Est GFR ( Amer) > 60 Est GFR (Non-Af Amer) > 60 Random Glucose 99 Calcium 9.6 Total Bilirubin 0.3 AST 52 ALT 60 H Alkaline Phosphatase 123 Total Protein 7.4 Albumin 4.3 Globulin 3.0 Albumin/Globulin Ratio 1.4 Salicylates Acetaminophen Alcohol, Quantitative 253 H 10/11/18 02:51 WBC RBC Hgb Hct MCV MCH MCHC RDW Plt Count MPV Sodium Potassium Chloride Carbon Dioxide Anion Gap BUN Creatinine Est GFR ( Amer) Est GFR (Non-Af Amer) Random Glucose Calcium Total Bilirubin AST ALT Alkaline Phosphatase Total Protein Albumin Globulin Albumin/Globulin Ratio Salicylates < 1 L Acetaminophen < 10.0 L Alcohol, Quantitative EKG/Cardiology Studies: Cardiology / EKG Studies 10/11/18 ELECTROCARDIOGRAM Stat Comment: Reason For Exam: overdose 10/11/18 10:00 ELECTROCARDIOGRAM Routine Comment: Reason For Exam: Repeat EKG; ?septal abnormality Critical Care Progress Note - Nutrition Nutrition: Nutrition Category Date Time Status NPO Diet [DIET] Diets 10/11/18 Breakfast Ordered Assessment/Plan - Assessment and Plan (Free Text) Plan: Patient seen and examined on rounds with resident, agree with note with following additions/exceptions: Patient is 28yo male with PMHx of EtOH abuse, polysubstance abuse, presented with alcohol intoxication and admits to ingesting "five Klonopin pills to go to sleep". Denies SI/HI. Currently AAOx3, NAD, no major complaints, no evidence of etoh withdrawal on exam. Labs, imaging, chart reviewed. EKG NSR, normal intervals CT head negative Polysubstance abuse BZD abuse EtOH intoxication Recommend: - supp o2 as needed - NO ID issues - IVF - Thiamine, Folic Acid, MVT - CIWA protocol - Psych consult - monitor LFTs, FS - Reg diet - GI ppx - DVT ppx - STABLE, transfer to telemetry
--- NOTE | 2018-10-11 14:29 | CARD ---
APPROVED REPORT Date of service: 10/11/2018 EKG Measurement Heart [id number] <Conclusion> Normal sinus rhythm Normal ECG
--- NOTE | 2018-10-11 14:35 | CARD ---
APPROVED REPORT Date of service: 10/11/2018 EKG Measurement Heart [id number] <Conclusion> Normal sinus rhythm Incomplete right bundle branch block Borderline ECG
[2018-10-11 15:20] LABS: BARBITURATES, UR NEGATIVE (NEGATIVE)
[2018-10-11 15:21] LABS: BENZODIAZEPINES, UR POSITIVE (NEGATIVE)
[2018-10-11 15:22] LABS: OPIATES, UR NEGATIVE (NEGATIVE); PHENCYCLIDINE, UR NEGATIVE (NEGATIVE)
[2018-10-11] MEDS ORDERED: Pneumococcal 23-Valent Vaccine IM ONE (17:11)
[2018-10-11] MEDS ORDERED: Influenza Vaccine 60 mcg/0.5 mL SYR (4YR UP) IM ONE (17:11)
[2018-10-11 19:35] VITALS: O2SAT 95
[2018-10-12] MEDS: Folic Acid 1 MG, Thiamine 100 MG, Multivitamin (MVI) 10 ML in Dextrose 5% In Water 1,00... IV SCH (01:35)
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
[2018-10-12 05:57] VITALS: RESP 18
[2018-10-12] MEDS ORDERED: Pantoprazole 40 mg EC Tab PO SCH (06:00)
[2018-10-12 06:51] LABS: ALB/GLOB RATIO 1.2 (1.1-1.8); ALBUMIN 3.8 g/dL (3.0-4.8); BLOOD UREA NITROGEN 18 mg/dL (7-21); CALCIUM 8.7 mg/dL (8.4-10.5); GFR NON-AFRICAN AMERICAN > 60
[2018-10-12 06:52] LABS: BASO # 0.05 K/mm3 (0.0-2.0); BASO % 0.6 % (0.0-3.0); EOS # 0.3 (0.0-0.7); EOS % 3.3 % (1.5-5.0); GRAN # 4.24 (1.4-6.5); GRAN % 48.4 % (50.0-68.0); HEMOGLOBIN 13.5 g/dL (14.0-18.0); LYMPH # 3.6 (1.2-3.4); LYMPH % 41.3 % (22.0-35.0); MEAN CELL VOLUME 94.7 fl (80.0-105.0); MEAN CORPUSCULAR HEMOGLOBIN 32.8 pg (25.0-35.0); MEAN CORPUSCULAR HGB CONC 34.6 g/dl (31.0-37.0); MEAN PLATELET VOLUME 10.4 fl (7.0-11.0); MONO # 0.6 (0.1-0.6); MONO % 6.4 % (1.0-6.0); RBC 4.12 10^6/uL (3.5-6.1); RED CELL DISTRIBUTION WIDTH 13.7 % (11.5-14.5); WHITE BLOOD COUNT 8.8 10^3/uL (4.5-11.0)
[2018-10-12 07:07] LABS: ALT/SGPT 59 U/L (7-56); AST/SGOT 60 U/L (17-59)
[2018-10-12 11:44] VITALS: BP 130/85; PULSE 62; TEMP 97.7
--- NOTE | 2018-10-12 13:27 | CP.PCM.PN ---
Subjective - Date & Time of Evaluation Date of Evaluation: 10/12/18 Time of Evaluation: 08:15 - Subjective Subjective: Internal medicine progress note for Dr. Magallon Patient seen and examined this am at bedside. SAMANTHA per nursing. Patient has no complaints at this time and denies WHITMORE, CP, SOB, abdominal pain and extremity pain/weakness Objective - Vital Signs/Intake and Output Vital Signs (last 24 hours): Temp Pulse Resp BP Pulse Ox 97.7 F 62 18 130/85 95 10/12/18 11:43 10/12/18 11:43 10/12/18 11:43 10/12/18 11:43 10/12/18 05:56 Intake and Output: 10/12/18 10/12/18 06:59 18:59 Intake Total 1960 Balance 1960 - Medications Medications: Current Medications Fluoxetine HCl (Prozac) 40 mg PO DAILY [facility] Last Admin: 10/12/18 09:14 Dose: 40 mg Folic Acid (Folic Acid) 1 mg PO DAILY [facility] Last Admin: 10/12/18 10:27 Dose: Not Given Gabapentin (Neurontin) 600 mg PO TID LAWSON; Protocol Last Admin: 10/12/18 09:14 Dose: 600 mg Lorazepam (Ativan) 2 mg IVP Q6H PRN; Protocol PRN Reason: Symptoms of alcohol withdrawl Last Admin: 10/12/18 09:20 Dose: 2 mg Multivitamins/Minerals (Therapeutic-M Tab) 1 tab PO 0800 [facility] Naltrexone HCl (Revia) 50 mg PO DAILY [facility] Last Admin: 10/12/18 09:20 Dose: 50 mg Nicotine (Nicoderm Cq) 1 patch TD DAILY [facility] Last Admin: 10/12/18 09:14 Dose: 1 patch Pantoprazole Sodium (Protonix Ec Tab) 40 mg PO ACB [facility] Thiamine HCl (Vitamin B1 Tab) 100 mg PO DAILY [facility] Last Admin: 10/12/18 09:14 Dose: 100 mg Trazodone HCl (Desyrel) 50 mg PO HS [facility] Last Admin: 10/11/18 21:10 Dose: 50 mg - Labs Labs: 10/12/18 06:00 10/12/18 06:00 - Constitutional Appears: Well, Non-toxic, No Acute Distress - Head Exam Head Exam: ATRAUMATIC, NORMOCEPHALIC - Eye Exam Additional comments: left eye with ecchymosis consistent/improving since last examined - ENT Exam ENT Exam: Mucous Membranes Moist - Respiratory Exam Respiratory Exam: NORMAL BREATHING PATTERN - Cardiovascular Exam Cardiovascular Exam: REGULAR RHYTHM - GI/Abdominal Exam GI & Abdominal Exam: Soft. absent: Distended, Guarding, Tenderness - Extremities Exam Extremities Exam: absent: Calf Tenderness, Pedal Edema - Neurological Exam Neurological Exam: Alert, Awake, Oriented x3 - Psychiatric Exam Psychiatric exam: Normal Mood - Skin Skin Exam: Cyanosis, Dry, Intact, Normal Color, Warm Assessment and Plan - Assessment and Plan (Free Text) Assessment: 28 yr old male admitted for observation after taking 10-15 Klonopin Plan: 1. Acute Alcohol Intoxication -resolved - CIWA scores consistently 0 throughout the day 2. Klonopin OD -Currently HDS -No residual symptoms - nearing 4 half life threshold 3. History of Polysubstance Abuse -UDS + for benzodiazepenes 4. History of Head Trauma -Repeat CT Head negative GI Prophylaxis: Protonix DVT Prophylaxis: SCD's Diet: NPO Code Status: Full Code Patient is clear to transition to psychiatric care Patient seen, examined and discussed with Dr. Sherita Espinosa, PGY 1
--- NOTE | 2018-10-12 14:07 | CP.PCM.DIS ---
Provider - Provider Date of Admission: 10/11/18 04:14 Attending physician: Alejandro Xiong MD Consults: 10/11/18 04:49 Physician Consult Routine Comment: Consulting Provider: Hollie Orellana Consulting Physician: Hollie Orellana Reason for Consult: ?Klonopin OD; Reported by mother 10/11/18 16:02 Social Work Referral Routine Comment: d/c plan Physician Instructions: Reason For Exam: eval Time Spent in preparation of Discharge (in minutes): 45 Diagnosis - Discharge Diagnosis (1) Overdose Status: Acute Hospital Course - Lab Results Lab Results: Most Recent Lab Values WBC 8.8 10^3/uL (4.5-11.0) 10/12/18 06:00 RBC 4.12 10^6/uL (3.5-6.1) 10/12/18 06:00 Hgb 13.5 g/dL (14.0-18.0) L 10/12/18 06:00 Hct 39.0 % (42.0-52.0) L 10/12/18 06:00 MCV 94.7 fl (80.0-105.0) 10/12/18 06:00 MCH 32.8 pg (25.0-35.0) 10/12/18 06:00 MCHC 34.6 g/dl (31.0-37.0) 10/12/18 06:00 RDW 13.7 % (11.5-14.5) 10/12/18 06:00 Plt Count 181 10^3/uL (120.0-450.0) 10/12/18 06:00 MPV 10.4 fl (7.0-11.0) 10/12/18 06:00 Gran % 48.4 % (50.0-68.0) L 10/12/18 06:00 Lymph % (Auto) 41.3 % (22.0-35.0) H 10/12/18 06:00 [place] % (Auto) 6.4 % (1.0-6.0) H 10/12/18 06:00 Eos % (Auto) 3.3 % (1.5-5.0) 10/12/18 06:00 Baso % (Auto) 0.6 % (0.0-3.0) 10/12/18 06:00 Gran # 4.24 (1.4-6.5) 10/12/18 06:00 Lymph # (Auto) 3.6 (1.2-3.4) H 10/12/18 06:00 [place] # (Auto) 0.6 (0.1-0.6) 10/12/18 06:00 Eos # (Auto) 0.3 (0.0-0.7) 10/12/18 06:00 Baso # (Auto) 0.05 K/mm3 (0.0-2.0) 10/12/18 06:00 Sodium 138 mmol/L (132-148) 10/12/18 06:00 Potassium 3.7 mmol/L (3.6-5.0) 10/12/18 06:00 Chloride 106 mmol/L (98-107) 10/12/18 06:00 Carbon Dioxide 23 mmol/L (21-33) 10/12/18 06:00 Anion Gap 12 (10-20) 10/12/18 06:00 BUN 18 mg/dL (7-21) 10/12/18 06:00 Creatinine 0.8 mg/dl (0.8-1.5) 10/12/18 06:00 Est GFR ( Amer) > 60 10/12/18 06:00 Est GFR (Non-Af Amer) > 60 10/12/18 06:00 Random Glucose 117 mg/dL (70-110) H 10/12/18 06:00 Calcium 8.7 mg/dL (8.4-10.5) 10/12/18 06:00 Phosphorus 4.8 mg/dL (2.5-4.5) H 10/12/18 06:00 Magnesium 1.9 mg/dL (1.7-2.2) 10/12/18 06:00 Total Bilirubin 0.4 mg/dL (0.2-1.3) 10/12/18 06:00 AST 60 U/L (17-59) H 10/12/18 06:00 ALT 59 U/L (7-56) H 10/12/18 06:00 Alkaline Phosphatase 105 U/L (38-126) 10/12/18 06:00 Total Protein 7.0 g/dL (5.8-8.3) 10/12/18 06:00 Albumin 3.8 g/dL (3.0-4.8) 10/12/18 06:00 Globulin 3.2 gm/dL 10/12/18 06:00 Albumin/Globulin Ratio 1.2 (1.1-1.8) 10/12/18 06:00 Salicylates < 1 mg/dL (2.0-20.0) L 10/11/18 02:51 Urine Opiates Screen Negative (NEGATIVE) 10/11/18 14:46 Urine Methadone Screen Negative (NEGATIVE) 10/11/18 14:46 Acetaminophen < 10.0 ug/ml (10.0-20.0) L 10/11/18 02:51 Ur Barbiturates Screen Negative (NEGATIVE) 10/11/18 14:46 Ur Phencyclidine Scrn Negative (NEGATIVE) 10/11/18 14:46 Ur Amphetamines Screen Negative (NEGATIVE) 10/11/18 14:46 U Benzodiazepines Scrn Positive (NEGATIVE) H 10/11/18 14:46 U Oth Cocaine Metabols Negative (NEGATIVE) 10/11/18 14:46 U Cannabinoids Screen Negative (NEGATIVE) 10/11/18 14:46 Alcohol, Quantitative 253 mg/dL (0-10) H 10/11/18 02:51 - Hospital Course Hospital Course: On admission: Patient presented to Ed after having ingested several (10-15) tabs of Klonopin. Patient was drowsy but did not require any respiratory or hemodynamic support. Patient was sleepy and confused in ED. he began to receive fluid resuscitation at that time. Hospital course: Patient was monitored for approximately 36-48 hours without symptoms of ETOH withdrawal or Klonopin overdose. Patient was awake and alert throughout this time and received IV fluids as well as vitamin supplements and Ativan PRN. Home psychiatric medications were restarted. Upon discharge: Patient was awake and alert with no deficits or confusion. He consented to go to psychiatric floor for further care and agreed this was the correct choice. He was discharged with instructions to continue taking all of his home medications as prescribed. These may be altered per Psych recommen dations during his further psychiatric care on their unit. This is a brief summary of the patient's stay please see chart for further details - Date & Time of H&P Date of H&P: 10/12/18 Time of H&P: 08:45 Discharge Exam - Head Exam Head Exam: ATRAUMATIC, NORMOCEPHALIC Additional comments: ecchymosis to left eye area - Eye Exam Eye Exam: EOMI - ENT Exam ENT Exam: Mucous Membranes Moist - Respiratory Exam Respiratory Exam: NORMAL BREATHING PATTERN - Cardiovascular Exam Cardiovascular Exam: REGULAR RHYTHM - GI/Abdominal Exam GI & Abdominal Exam: Soft. absent: Distended, Guarding, Rigid, Tenderness - Extremities Exam Extremities exam: pedal pulses present - Neurological Exam Neurological exam: Alert, Oriented x3 - Psychiatric Exam Psychiatric exam: Normal Mood - Skin Skin Exam: Dry, Intact, Normal Color, Warm Discharge Plan - Follow Up Plan Condition: STABLE Disposition: DISCHARGE TO PSYCH HOSPITAL Instructions: Drug Abuse and Drug Addiction (DC), Alcohol Abuse and Alcoholism (DC) Additional Instructions: Please follow up with your primary care doctor within 3-5 days of discharge from the hospital. If you do not have a primary care doctor, you have been provided with the contact information for the [facility]. Please call to schedule an appointment. Please continue follow up with your outpatient Psychiatrist as scheduled. Please follow up with your choice of alcohol abuse rehabilitation program as you are currently medically optimized for placement. PLEASE STOP DRINKING ALCOHOL DISCUSSED Please take all medications as prescribed. If your symptoms return, please seek emergency medical attention immediately. Referrals: [facility] [place] [facility] [place]
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
[2018-10-13] MEDS ORDERED: Pantoprazole 40 mg EC Tab PO SCH (07:30)
[2018-10-13] MEDS ORDERED: Multivitamin With Minerals Tab PO SCH (08:00)
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
== END 2018-10-12 15:20 ==
LOC: ED 01:41 → ERH 04:14 → 2RNO 20:56 → 2RSO 10-12 08:19
PROVIDERS: ADMIT Internal Medicine; ATTEND Internal Medicine
DX: T42.4X1A Poisoning by benzodiazepines, accidental (unintentional), initial encounter (principal); F10.229 Alcohol dependence with intoxication, unspecified; F10.239 Alcohol dependence with withdrawal, unspecified; F17.210 Nicotine dependence, cigarettes, uncomplicated; F32.9 Major depressive disorder, single episode, unspecified; F19.94 Other psychoactive substance use, unspecified with psychoactive substance-induced mood disorder; S00.12XA Contusion of left eyelid and periocular area, initial encounter; Y04.0XXA Assault by unarmed brawl or fight, initial encounter; Y90.8 Blood alcohol level of 240 mg/100 ml or more
CPT/HCPCS: 36415; 70450; 71045; 80053; 80320; 80324; 80329; 80345; 80346; 80349; 80353; 80358; 80361; 83735; 83992; 84100; 85025; 85027; 93005; 96374; 96375; 96376; 99285; C9113; G0378; J2060; J3411; J7030; J7070

== ENCOUNTER 2018-10-12 15:30 | Inpatient (IN) | payer MEDICAID ==
[2018-10-11 02:05] VITALS: BMI 29.4
--- NOTE | 2018-10-12 17:57 | PCM.BM ---
<Kenroy Stewart - Last Filed: 10/12/18 17:41> Treatment Plan Problems - Problems identified on initial assessmt Hopelessness/Helplessness Date Initiated: 10/12/18 Time Initiated: 16:00 Assessment reference: NA Status: Active Priority: 1 Feelings of Worthlessness Date Initiated: 10/12/18 Time Initiated: 16:00 Assessment reference: NA Status: Active Priority: 2 Ineffective Coping Date Initiated: 10/12/18 Time Initiated: 16:00 Assessment reference: NA Status: Active Priority: 3 Treatment assets and liabiliti Patient Assests: adapts well, cooperative, educated, ADL independent, good support system, negotiates basic needs, cognitively intact Patient Liabilities: financial problems, poor support system, substance abuse - Milieu Protocol Maintain good personal hygiene: daily Encourage regular showers, every shift Remind patient to perform daily oral care, every shift Assist patient to perform ADL's Maintain personal safety: every shift Educate patient to report safety concerns to staff, every shift Monitor environment for contraband/sharps Medication safety: Monitor for expected outcome, potential side effects: every shift, Assess barriers to learning: every shift, Assess readiness for medication education: every shift Family Contact Family involvement: Family/SO is involved Family contact: Patient agrees to contact - Goals for Treatment Patient goals for treatment: Treatment for depression Discharge/Continuing Care - Education Needs Education Needs: Patient Medication, Patient Diagnosis/Disease Process, Patient Coping Skills, Patient Anger Management skills, Patient Placement options, Patient Community resources, Patient Activities of Daily Living, Patient Pain, Patient Nutrition, Patient Uses of Medical Equipment, Patient Health Practices/Safety, Patient Personal Hygiene/Grooming, Patient Aftercare Safety Plan, Patient Other - Discharge Discharge Criteria: Tolerates medication w/o severe side effects <Digna Cunningham - Last Filed: 10/13/18 10:32> Family Contact Family contact: Patient agrees to contact <Hollie Orellana - Last Filed: 10/13/18 14:39> - Diagnosis (1) Alcohol use disorder Status: Chronic Interventions: 10/13/18 14:37 Monitoring withdrawal symptoms Medical detoxification Pharmacotherapy for alcohol/benzos/opioid dependence Maintaining sobriety Relapse prevention Possible rehabilitation Motivational interviewing 12-step programs: AA meetings (2) Substance induced mood disorder Status: Chronic Interventions: 10/13/18 14:37 Psychoeducation Psychopharmacology/adjustment of medications as needed/ monitoring possible side effects Evaluate pt on daily basis Compliance with medications and follow up appointments Suicide and homicide risk assessment and prevention Relapse prevention Reduction of symptoms Improve functional status Family involvement As outpatient: cognitive behavioral therapy
[2018-10-13] MEDS: Pantoprazole 40 mg EC Tab PO SCH (06:20)
[2018-10-13 07:01] LABS: GLUCOSE,FASTING 105 mg/dL (65-110); HDL CHOLESTEROL 42 mg/dL (29-60)
[2018-10-13 07:12] LABS: LDL CHOLESTEROL 91 mg/dL (0-129)
[2018-10-13] MEDS: Multivitamin Therapeutic Tab PO SCH (09:20)
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
[2018-10-14] MEDS: Pantoprazole 40 mg EC Tab PO SCH (06:04)
[2018-10-14] MEDS: Multivitamin Therapeutic Tab PO SCH (08:25)
--- NOTE | 2018-10-14 13:56 | PCM.PYCHPN ---
Psychiatric Progress Note - Psychiatric Progress Note Patient seen today, length of contact: 30 minutes Patient Chief Complaint: "I have a sore throat" Problems Identified/Issues Discussed: Suicide/ homicide prevention, past psychiatric h/o, current psychiatric symptoms, medical problems, risk/benefits and alternatives of medications, medications compliance, coping strategies, substance abuse h/o, relapse prevention, importance of follow up with psychiatrist and therapist, discharge plan. Medical Problems: See HPI Diagnostic Results: Lab Results 10/13/18 06:20: RPR Nonreactive 10/13/18 06:20: TSH 3rd Generation 1.07 10/13/18 06:20: Fasting Glucose 105, Triglycerides 508 H, Cholesterol 224 H, LDL Cholesterol Direct 91, HDL Cholesterol 42 Vital Signs Temp Pulse Resp BP 10/14/18 07:31 98.3 F 53 L 20 103/63 10/13/18 16:00 69 144/93 H 10/13/18 07:13 98.0 F 48 L 18 103/50 L 10/12/18 18:35 20 DSM 5 Symptoms Update: shortly pt is a 28 year old male, whose past medical history includes polysubstance abuse and alcohol abuse, h/o substance induced mood disorder, h/o ?ADHD, multiple ED/medical floor admissions, as well as psych admissions, h/o chronic noncompliance with f/u appts and medications, chronic resistance to go to inpatient rehab, pt also has h/o involuntary commitment at [facility] and h/o impulsive/suicidal behavior in the past. pt was initially admitted to the medical floor for evaluation of confusion/drowsiness, pt injested 10-15 pills of klonopin, alcohol level was 253. pt is very familiar to the unit from multiple psych admissions. Patient was seen today next to the nursing station, patient complaining that she has stuffy nose as well as sore throat, patient was fixated on benzodiazepines, was asking when that will be resumed, appears to be disappointed that it is only for alcohol withdrawals. Patient reported that his mood is improving, denied any thoughts of harming himself or others, patient working with manager social media in order to get him through the rehab. As per staff patient is visible in the unit, pleasant, cooperative, no agitation, no aggression. Patient denied visual/auditory/tactile hallucinations, denies paranoid ideations, patient does not appear to be psychotic. Patient tolerates medications well, no side effects observed or reported, AIMS 0, no EPS. Patient does not have any signs of alcohol withdrawals, appears to be comfortab le, vital signs are within normal limits. Impression: DSM 5 Diagnosis: r/o substance induced mood disorder r/o mdd alcohol use disorder Medication Change: Yes (Prozac increased to 50 mg daily) Medical Record Reviewed: Yes Consults ordered or reviewed: Medical follow-up will be considered Mental Status Examination - Cognitive Function Orientation: Person Memory: Intact Attention: Poor Concentration: Poor Association: WNL Fund of Knowledge: WNL - Mood Mood: Depressed ("I feel better") - Affect Affect: Constricted (But reactive and mood congruent) - Speech Speech: Appropriate - Formal Thought Process Formal Thought Process: No Impairment - Suicidal Ideation Suicidal Ideation: No - Homicidal Ideation Homicidal Ideation: No Goal/Treatment Plan - Goal/Treatment Plan Need for Continued Stay: Remain at risks for inpatient hospitalization, Severe depression anxiety, Discharge may exacerbated symptoms, Failed transitioning, Severe functional impairment Progress Toward Problem(s) and Goals/Treatment Plan: Milieu/structure/supportive therapy Medical consult appreciated SW consultation for discharge plan and social issues Med management prozac 50 mg daily will be continued trazodone 100mghs at the nighttime for depression and off label for insomnia MVI, thiamine, folic acid naltrexone 50mg po dialy vistaril PRN ativan for possible withdrawals rehab recommended Family involvement Follow up on labs Will monitor closely Pt was educated about risk/benefits and alternatives of medications, coping strategies (safety plan, suicide prevention), relapse prevention, importance of follow up with psychiatrist and therapist, stay away from drugs/alcohol/smoking Estimated Date of D/C: 10/18/18
[2018-10-14] MEDS: Benzocaine/Menthol (Cepacol) Lozenge MT PRN (14:45)
[2018-10-15] MEDS: Multivitamin Therapeutic Tab PO SCH (09:08)
[2018-10-15] MEDS: Pantoprazole 40 mg EC Tab PO SCH (09:11)
--- NOTE | 2018-10-15 16:57 | PCM.PYCHPN ---
Psychiatric Progress Note - Psychiatric Progress Note Patient seen today, length of contact: 30 minutes Patient Chief Complaint: "I do not understand why you cannot give me an Ativan or Klonopin?" Problems Identified/Issues Discussed: Suicide/ homicide prevention, past psychiatric h/o, current psychiatric symptoms, medical problems, risk/benefits and alternatives of medications, medications compliance, coping strategies, substance abuse h/o, relapse prevention, importance of follow up with psychiatrist and therapist, discharge plan. Medical Problems: See HPI Diagnostic Results: Lab Results 10/13/18 06:20: RPR Nonreactive 10/13/18 06:20: TSH 3rd Generation 1.07 10/13/18 06:20: Fasting Glucose 105, Triglycerides 508 H, Cholesterol 224 H, LDL Cholesterol Direct 91, HDL Cholesterol 42 Vital Signs Temp Pulse Resp BP 10/14/18 07:31 98.3 F 53 L 20 103/63 10/13/18 16:00 69 144/93 H 10/13/18 07:13 98.0 F 48 L 18 103/50 L 10/12/18 18:35 20 Temp Pulse Resp BP Pulse Ox 97.6 F 52 L 16 93/56 L 10/15/18 07:44 10/15/18 07:44 10/15/18 07:44 10/15/18 07:44 DSM 5 Symptoms Update: shortly pt is a 28 year old male, whose past medical history includes polysubstance abuse and alcohol abuse, h/o substance induced mood disorder, h/o ?ADHD, multiple ED/medical floor admissions, as well as psych admissions, h/o chronic noncompliance with f/u appts and medications, chronic resistance to go to inpatient rehab, pt also has h/o involuntary commitment at [facility] and h/o impulsive/suicidal behavior in the past. pt was initially admitted to the medical floor for evaluation of confusion/drowsiness, pt injested 10-15 pills of klonopin, alcohol level was 253. pt is very familiar to the unit from multiple psych admissions. Patient was seen today next to the nursing station, patient complaining of "anxiety", before evaluation patient was observed watching TV, injuring movie with another patient, patient does not appear to be anxious, when this loan underwriter started to talk to him, patient reported that he feels anxious, was showing his hands with self induced tremor, vital signs are stable, no physical signs of withdrawal from the alcohol. Patient was fixated on benzodiazepines, wanted to be on Klonopin or Ativan, this loan underwriter educated patient that right now no benzodiazepines will be prescribed to him because patient has history of misusing, abusing benzodiazepines as well as because he is addiction to alcohol. Moreover patient will be not accepted into rehab facility. Patient reluctantly agreed. Patient reported that his mood is improving, denied any thoughts of harming himself or others, patient working with social human services assistants in order to get him through the rehab. At the present moment his discharge plan is "to stay in [facility], my grandmother will pay for my room there, after that he told me that she will accept me under condition that they will stop drinking". As per staff patient is visible in the unit, pleasant, cooperative, no agitation, no aggression. Patient denied visual/auditory/tactile hallucinations, denies paranoid ideations, patient does not appear to be psychotic. Patient tolerates medications well, no side effects observed or reported, AIMS 0, no EPS. Patient does not have any signs of alcohol withdrawals, appears to be comfortable, vital signs are within normal limits. Impression: DSM 5 Diagnosis: r/o substance induced mood disorder r/o mdd alcohol use disorder Medication Change: Yes (Prozac increased to 50 mg daily 10/14/2018) Medical Record Reviewed: Yes Mental Status Examination - Cognitive Function Orientation: Person Memory: Intact Attention: Poor (Some improvement) Concentration: Poor (Some improvement) Association: WNL Fund of Knowledge: WNL - Mood Mood: Depressed ("I feel anxious"), Anxious (Patient does not appear to be anxious) - Affect Affect: Constricted (But reactive and mood congruent) - Speech Speech: Appropriate - Formal Thought Process Formal Thought Process: No Impairment - Suicidal Ideation Suicidal Ideation: No - Homicidal Ideation Homicidal Ideation: No Goal/Treatment Plan - Goal/Treatment Plan Need for Continued Stay: Remain at risks for inpatient hospitalization, Severe depression anxiety, Discharge may exacerbated symptoms, Failed transitioning, Severe functional impairment Progress Toward Problem(s) and Goals/Treatment Plan: Milieu/structure/supportive therapy Medical consult appreciated SW consultation for discharge plan and social issues Med management prozac 50 mg daily will be continued trazodone 100mghs at the nighttime for depression and off label for insomnia MVI, thiamine, folic acid naltrexone 50mg po dialy vistaril as needed for anxiety PRN ativan only for physical symptoms of withdrawal from alcohol rehab recommended Family involvement Follow up on labs Will monitor closely Pt was educated about risk/benefits and alternatives of medications, coping strategies (safety plan, suicide prevention), relapse prevention, importance of follow up with psychiatrist and therapist, stay away from drugs/alcohol/smoking Estimated Date of D/C: 10/18/18
[2018-10-16] MEDS: Pantoprazole 40 mg EC Tab PO SCH (06:25)
[2018-10-16 07:32] VITALS: TEMP 97.8
[2018-10-16] MEDS: Multivitamin Therapeutic Tab PO SCH (08:55)
--- NOTE | 2018-10-16 12:23 | PCM.PYCHPN ---
Psychiatric Progress Note - Psychiatric Progress Note Patient seen today, length of contact: 30 minutes Problems Identified/Issues Discussed: reviewed recent notes. I am familiar with this patient from interviews during prior presentions to ER and medical floor. Patient has a lot of difficulty abstaining from alcohol and this has led to multiple recurrent issues in this life. Presently he is being treated for depression, anxiety, benzo overdose and alcohol withdrawal (though these symptoms are improving). He is alert, well- oriented and pleasant during my visit. He remembers me from prior interactions and range is full. He is feeling better since admission though depression persists and he still suffers from a lot of anxiety. Denies perceptual disturbance or any new pain or discomfort. Patient has been bright visible and friendly on the unit. He can communicate needs well. Patient has been compliant with medications without any behavioral issues however doesn't appear to be very motivated to stop drinking though understands need and consequences. Patient also appears to be medication seeking at times Diagnostic Results: r/o substance induced mood disorder r/o mdd alcohol use disorder Medication Change: Yes (ativan 1 mg started) Medical Record Reviewed: Yes Mental Status Examination - Cognitive Function Orientation: Person, Place, Situation Memory: Intact Attention: WNL (Some improvement) Concentration: WNL (Some improvement) Association: WNL Fund of Knowledge: WNL - Mood Mood: Depressed ("I feel anxious"), Anxious (Patient does not appear to be anxious) - Affect Affect: Constricted (But reactive and mood congruent) - Speech Speech: Appropriate - Formal Thought Process Formal Thought Process: No Impairment - Suicidal Ideation Suicidal Ideation: No - Homicidal Ideation Homicidal Ideation: No Goal/Treatment Plan - Goal/Treatment Plan Need for Continued Stay: Remain at risks for inpatient hospitalization, Severe depression anxiety, Discharge may exacerbated symptoms, Failed transitioning, Severe functional impairment Progress Toward Problem(s) and Goals/Treatment Plan: * c/w current tx and plan * Vitals reviewed and noted below: Selected Entries 10/14/18 10/14/18 10/15/18 07:31 16:00 07:44 Temperature 98.3 F 97.6 F Pulse Rate 53 L 78 52 L Respiratory 20 16 Rate Blood Pressure 103/63 137/86 93/56 L Estimated Date of D/C: 10/18/18
[2018-10-17] MEDS: Pantoprazole 40 mg EC Tab PO SCH (06:55)
[2018-10-17] MEDS: Multivitamin Therapeutic Tab PO SCH (08:58)
--- NOTE | 2018-10-17 09:50 | PCM.PYCHPN ---
Psychiatric Progress Note - Psychiatric Progress Note Patient seen today, length of contact: 30 minutes Problems Identified/Issues Discussed: I reviewed recent notes. I am familiar with this patient from interviews during prior presentions to ER and medical floor. Patient has a lot of difficulty abstaining from alcohol and this has led to multiple recurrent issues in this life. Presently he is being treated for depression, anxiety, benzo overdose and alcohol withdrawal (though alcohol withdrawal symptoms are currently much improved). Patient remains alert, well-oriented and pleasant during my visit. He remembers me from prior interactions and range is full. He is feeling better since a dmission though depression persists and he still suffers from a lot of anxiety--staff have noted that he can be medication seeking, this is similar to prior admissions. Denies perceptual disturbance or any new pain or discomfort. Patient has been bright visible and friendly on the unit. He can communicate needs well. Patient has been compliant with medications without any behavioral issues however doesn't appear to be very motivated to stop drinking though understands need and consequences. Diagnostic Results: r/o substance induced mood disorder r/o mdd alcohol use disorder Medication Change: Yes (ativan 1 mg started) Medical Record Reviewed: Yes Mental Status Examination - Cognitive Function Orientation: Person, Place, Situation Memory: Intact Attention: WNL (Some improvement) Concentration: WNL (Some improvement) Association: WNL Fund of Knowledge: WNL - Mood Mood: Depressed ("I feel anxious"), Anxious (Patient does not appear to be anxious) - Affect Affect: Broad - Speech Speech: Appropriate - Formal Thought Process Formal Thought Process: No Impairment - Suicidal Ideation Suicidal Ideation: No - Homicidal Ideation Homicidal Ideation: No Goal/Treatment Plan - Goal/Treatment Plan Need for Continued Stay: Remain at risks for inpatient hospitalization, Severe depression anxiety, Discharge may exacerbated symptoms, Failed transitioning, Severe functional impairment Progress Toward Problem(s) and Goals/Treatment Plan: * c/w current tx and plan * Vitals reviewed and noted below: Selected Entries 10/15/18 10/16/18 07:44 07:31 Temperature 97.6 F 97.8 F Pulse Rate 52 L 81 Respiratory 16 20 Rate Blood Pressure 93/56 L 116/80 * No new lab results over the weekend * Have provided temporary dose of ativan 1 mg HS to mitigate increased activation associated with increased dose of prozac. Prozac dose increases can be acutely associated with increased internal agitation, anxiety, insomnia, WHITMORE and reduced impulse control. Estimated Date of D/C: 10/18/18
[2018-10-17] MEDS: Benzocaine/Menthol (Cepacol) Lozenge MT PRN (12:53)
[2018-10-18] MEDS: Pantoprazole 40 mg EC Tab PO SCH (06:21)
[2018-10-18 07:09] VITALS: BP 111/57; PULSE 57; RESP 20
[2018-10-18] MEDS: Multivitamin Therapeutic Tab PO SCH (08:07)
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
== END 2018-10-18 14:20 | disposition home or self-care (01) | DRG 753 ==
LOC: PSYC 15:30
PROVIDERS: ADMIT Psychiatry & Neurology Psychiatry; ATTEND Psychiatry & Neurology Psychiatry
DX: F31.9 Bipolar disorder, unspecified (principal); F22 Delusional disorders; F10.239 Alcohol dependence with withdrawal, unspecified; F11.24 Opioid dependence with opioid-induced mood disorder; F41.9 Anxiety disorder, unspecified; F90.9 Attention-deficit hyperactivity disorder, unspecified type; G47.00 Insomnia, unspecified; S00.10XA Contusion of unspecified eyelid and periocular area, initial encounter; T42.4X1A Poisoning by benzodiazepines, accidental (unintentional), initial encounter; Z79.899 Other long term (current) drug therapy; F17.210 Nicotine dependence, cigarettes, uncomplicated; Z90.49 Acquired absence of other specified parts of digestive tract; Z91.19 Patient's noncompliance with other medical treatment and regimen; Y90.8 Blood alcohol level of 240 mg/100 ml or more

== ENCOUNTER 2018-10-20 17:07 | Emergency (ER) | payer MEDICAID ==
[2018-10-20 17:08] VITALS: BMI 29.4
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
[2018-10-20 18:47] VITALS: RESP 18; TEMP 98.7
[2018-10-20 21:51] VITALS: BP 108/74; PULSE 77; O2SAT 98
== END 2018-10-20 21:20 | disposition home or self-care (01) ==
LOC: ED 17:07
DX: F10.10 Alcohol abuse, uncomplicated (principal)

== ENCOUNTER 2018-10-21 01:56 | Emergency (ER) | payer MEDICAID ==
[2018-10-21 01:59] VITALS: BMI 29.9
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
[2018-10-21 02:14] LABS: HEMOGLOBIN 14.6 g/dL (14.0-18.0); MEAN CELL VOLUME 93.7 fl (80.0-105.0); MEAN CORPUSCULAR HEMOGLOBIN 31.9 pg (25.0-35.0); MEAN CORPUSCULAR HGB CONC 34.1 g/dl (31.0-37.0); MEAN PLATELET VOLUME 9.6 fl (7.0-11.0); RBC 4.57 10^6/uL (3.5-6.1); WHITE BLOOD COUNT 10.1 10^3/uL (4.5-11.0)
[2018-10-21 02:30] VITALS: RESP 18
[2018-10-21 02:35] LABS: TROPONIN I < 0.01 ng/mL
[2018-10-21 03:01] LABS: ALB/GLOB RATIO 1.4 (1.1-1.8); ALBUMIN 4.6 g/dL (3.0-4.8); ALT/SGPT 110 U/L (7-56); AST/SGOT 52 U/L (17-59); BLOOD UREA NITROGEN 19 mg/dL (7-21); GFR NON-AFRICAN AMERICAN > 60
[2018-10-21 03:02] LABS: BARBITURATES, UR NEGATIVE (NEGATIVE); BENZODIAZEPINES, UR POSITIVE (NEGATIVE); OPIATES, UR NEGATIVE (NEGATIVE); PHENCYCLIDINE, UR NEGATIVE (NEGATIVE)
--- NOTE | 2018-10-21 07:16 | ED PDOC ---
Physical Exam Vital Signs Reviewed: Yes Vital Signs Temp Pulse Resp BP Pulse Ox 10/21/18 02:27 98.7 F 87 18 110/65 97 Temperature: Afebrile Blood Pressure: Normal Pulse: Regular Respiratory Rate: Normal Appearance: Positive for: Well-Appearing, Non-Toxic, Comfortable Pain Distress: None Mental Status: Positive for: Alert and Oriented X 3 - Systems Exam Head: Present: Atraumatic, Normocephalic Pupils: Present: PERRL Extroacular Muscles: Present: EOMI Conjunctiva: Present: Normal Mouth: Present: Moist Mucous Membranes Neck: Present: Normal Range of Motion Respiratory/Chest: Present: Clear to Auscultation, Good Air Exchange. No: Respiratory Distress, Accessory Muscle Use Cardiovascular: Present: Regular Rate and Rhythm, Normal S1, S2. No: Murmurs Abdomen: No: Tenderness, Distention, Peritoneal Signs Back: Present: Normal Inspection Upper Extremity: Present: Normal Inspection. No: Cyanosis, Edema Lower Extremity: Present: Normal Inspection. No: Edema Neurological: Present: GCS=15, CN II-XII Intact, Speech Normal Skin: Present: Warm, Dry, Normal Color. No: Rashes Psychiatric: Present: Alert, Oriented x 3, Normal Insight, Normal Concentration Medical Decision Making ED Course and Treatment: 10/21/18 07:[address] Mancera with patient pending clinical sobriety. 10/21/18 09:30 Patient reassessed with no evidence of tremulousness or fasiculations. Steady gait unassisted noted to bathroom with patient desiring to go home. He is stable for discharge. - Lab Interpretations Lab Results: 10/21/18 02:00 10/21/18 02:00 Lab Results 10/21/18 02:17: Urine Opiates Screen Negative, Urine Methadone Screen Negative, Ur Barbiturates Screen Negative, Ur Phencyclidine Scrn Negative, Ur Amphetamines Screen Negative, U Benzodiazepines Scrn Positive H, U Oth Cocaine Metabols Negative, U Cannabinoids Screen Negative 10/21/18 02:00: Alcohol, Quantitative 280 H 10/21/18 02:00: WBC 10.1, RBC 4.57, Hgb 14.6, Hct 42.8, MCV 93.7, MCH 31.9, MCHC 34.1, RDW 14.0, Plt Count 252, MPV 9.6 10/21/18 02:00: Sodium 145, Potassium 4.3, Chloride 107, Carbon Dioxide 26, Anio n Gap 16, BUN 19, Creatinine 1.1, Est GFR ( Amer) > 60, Est GFR (Non-Af Amer) > 60, Random Glucose 104, Calcium 9.0, Total Bilirubin 0.3, AST 52, ALT 110 H, Alkaline Phosphatase 81, Lactate Dehydrogenase 515, Total Creatine Kinase 205, Troponin I < 0.01 D, Total Protein 8.1, Albumin 4.6, Globulin 3.4, Albumin/Globulin Ratio 1.4 - RAD Interpretation Radiology Orders: 10/21/18 02:00 CHEST PORTABLE [RAD] Stat - Scribe Statement The provider has reviewed the documentation as recorded by the Scribe Ana Luisa Pack Provider Scribe Attestation: All medical record entries made by the Scribe were at my direction and personally dictated by me. I have reviewed the chart and agree that the record accurately reflects my personal performance of the history, physical exam, medical decision making, and the department course for this patient. I have also personally directed, reviewed, and agree with the discharge instructions and disposition. Disposition/Present on Arrival - Present on Arrival Any Indicators Present on Arrival: No History of DVT/PE: No History of Uncontrolled Diabetes: No Urinary Catheter: No History of Decub. Ulcer: No History Surgical Site Infection Following: None - Disposition Have Diagnosis and Disposition been Completed?: Yes Diagnosis: Alcohol intoxication Disposition: HOME/ ROUTINE Disposition Time: 09:30 Patient Plan: Discharge Condition: STABLE Discharge Instructions (ExitCare): Alcohol Abuse and Alcoholism (DC) Print Language: SYRIAC Referrals: [facility] [Outside] - Follow up with primary [facility] [Outside] - Follow up with primary Leslee Russell MD [Medical Doctor] - Follow up with primary Forms: Berg (Indonesian)
[2018-10-21 09:40] VITALS: BP 100/51; PULSE 90; TEMP 98.2; O2SAT 97
--- NOTE | 2018-10-21 11:10 | RAD ---
Date of service: 10/21/2018 HISTORY: medical cloearance COMPARISON: 10/11/2018. FINDINGS: LUNGS: The lungs are well inflated and clear. PLEURA: No pleural effusions or pneumothorax. CARDIOVASCULAR: The heart is normal in size. No aortic atherosclerotic calcification present. OSSEOUS STRUCTURES: Within normal limits for the patient's age. VISUALIZED UPPER ABDOMEN: Normal. OTHER FINDINGS: None. IMPRESSION: No active pulmonary disease.
--- NOTE | 2018-10-22 00:27 | CARD ---
APPROVED REPORT Date of service: 10/21/2018 EKG Measurement Heart [id number] <Conclusion> Normal sinus rhythm Incomplete right bundle branch block Borderline ECG
== END 2018-10-21 09:49 | disposition home or self-care (01) ==
LOC: ED 01:56
DX: F10.129 Alcohol abuse with intoxication, unspecified (principal); F17.210 Nicotine dependence, cigarettes, uncomplicated

== ENCOUNTER 2018-10-27 19:44 | Inpatient (IN) | payer MEDICAID ==
[2018-10-27 19:55] VITALS: BMI 30.5
[2018-10-27 20:08] LABS: BASO # 0.05 K/mm3 (0.0-2.0); BASO % 0.4 % (0.0-3.0); EOS # 0.1 (0.0-0.7); EOS % 0.9 % (1.5-5.0); GRAN # 6.7 (1.4-6.5); GRAN % 53.4 % (50.0-68.0); LYMPH # 5.3 (1.2-3.4); LYMPH % 41.8 % (22.0-35.0); MEAN CELL VOLUME 92.2 fl (80.0-105.0); MEAN CORPUSCULAR HEMOGLOBIN 32.1 pg (25.0-35.0); MEAN CORPUSCULAR HGB CONC 34.8 g/dl (31.0-37.0); MEAN PLATELET VOLUME 9.9 fl (7.0-11.0); MONO # 0.4 (0.1-0.6); MONO % 3.5 % (1.0-6.0); RBC 4.99 10^6/uL (3.5-6.1); RED CELL DISTRIBUTION WIDTH 13.7 % (11.5-14.5); WHITE BLOOD COUNT 12.6 10^3/uL (4.5-11.0)
[2018-10-27] MEDS: Sodium Chloride 0.9% 1,000 ML IV SCH (20:11)
[2018-10-27 20:20] LABS: ACETAMINOPHEN < 10.0 ug/ml (10.0-20.0); SALICYLATE < 1 mg/dL (2.0-20.0)
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
[2018-10-27 20:23] LABS: ALB/GLOB RATIO 1.5 (1.1-1.8); ALBUMIN 5.1 g/dL (3.0-4.8); ALT/SGPT 55 U/L (7-56); AST/SGOT 40 U/L (17-59); BLOOD UREA NITROGEN 16 mg/dL (7-21); GFR NON-AFRICAN AMERICAN > 60
[2018-10-27 20:40] LABS: CK-MB 2.1 ng/mL (0.0-3.6)
[2018-10-27 20:56] LABS: URINE BILIRUBIN NEGATIVE (NEGATIVE); URINE BLOOD NEGATIVE (NEGATIVE); URINE GLUCOSE (UA) NEGATIVE (NEGATIVE); URINE LEUKOCYTE ESTERASE NEGATIVE Leu/uL (NEGATIVE); URINE PROTEIN 30 mg/dL (<30 mg/dL); URINE UROBILINOGEN 0.2 E.U./dL (<1 E.U./dL)
[2018-10-27 21:12] LABS: URINE APPEARANCE CLEAR (CLEAR); URINE COLOR YELLOW (YELLOW)
[2018-10-27 21:14] LABS: BARBITURATES, UR NEGATIVE (NEGATIVE); BENZODIAZEPINES, UR POSITIVE (NEGATIVE); OPIATES, UR NEGATIVE (NEGATIVE); PHENCYCLIDINE, UR NEGATIVE (NEGATIVE)
[2018-10-27 21:26] LABS: URINE BACTERIA SMALL /hpf; URINE EPITHELIAL CELLS 0 - 2 /hpf (0-5); URINE RBC 0 - 2 /hpf (0-2); URINE WBC 0 - 2 /hpf (0-6)
[2018-10-27] MEDS ORDERED: Multivitamin (MVI) 10 ML, Thiamine 100 MG, Folic Acid 1 MG in Sodium Chloride 0.9% 1,00... IV ONE (21:29)
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
[2018-10-28] MEDS: Sodium Chloride 0.9% 1,000 ML IV SCH (07:54)
[2018-10-28] MEDS: Multivitamin With Minerals Tab PO SCH (09:05)
--- NOTE | 2018-10-28 09:13 | CARD ---
APPROVED REPORT Date of service: 10/27/2018 EKG Measurement Heart [id number] <Conclusion> Sinus tachycardia Incomplete right bundle branch block PRWP NSSTW changes Artifact present
--- NOTE | 2018-10-28 09:17 | RAD ---
Date of service: 10/27/2018 HISTORY: withdrawal COMPARISON: 10/21/2018 FINDINGS: LUNGS: No active pulmonary disease. PLEURA: No significant pleural effusion identified, no pneumothorax apparent. CARDIOVASCULAR: No aortic atherosclerotic calcification present. Normal cardiac size. No pulmonary vascular congestion. OSSEOUS STRUCTURES: No significant abnormalities. VISUALIZED UPPER ABDOMEN: Normal. OTHER FINDINGS: None. IMPRESSION: No active disease.
--- NOTE | 2018-10-28 13:28 | CP.PCM.DIS ---
Provider - Provider Date of Admission: 10/27/18 21:27 Attending physician: Marlin Valverde DO Primary care physician: NO PRIMARY CARE PROVIDER Consults: 10/28/18 03:05 Transition In Care/Readmission Reduction Routine Comment: Physician Instructions: Reason For Exam: admission assessment 10/28/18 03:42 Respiratory Therapy Referral Routine Comment: Physician Instructions: Reason For Exam: admisson assessment Hospital Course - Lab Results Lab Results: Most Recent Lab Values WBC 12.6 10^3/uL (4.5-11.0) H D 10/27/18 20:00 RBC 4.99 10^6/uL (3.5-6.1) 10/27/18 20:00 Hgb 16.0 g/dL (14.0-18.0) 10/27/18 20:00 Hct 46.0 % (42.0-52.0) 10/27/18 20:00 MCV 92.2 fl (80.0-105.0) 10/27/18 20:00 MCH 32.1 pg (25.0-35.0) 10/27/18 20:00 MCHC 34.8 g/dl (31.0-37.0) 10/27/18 20:00 RDW 13.7 % (11.5-14.5) 10/27/18 20:00 Plt Count 290 10^3/uL (120.0-450.0) 10/27/18 20:00 MPV 9.9 fl (7.0-11.0) 10/27/18 20:00 Gran % 53.4 % (50.0-68.0) 10/27/18 20:00 Lymph % (Auto) 41.8 % (22.0-35.0) H 10/27/18 20:00 [place] % (Auto) 3.5 % (1.0-6.0) 10/27/18 20:00 Eos % (Auto) 0.9 % (1.5-5.0) L 10/27/18 20:00 Baso % (Auto) 0.4 % (0.0-3.0) 10/27/18 20:00 Gran # 6.70 (1.4-6.5) H 10/27/18 20:00 Lymph # (Auto) 5.3 (1.2-3.4) H 10/27/18 20:00 [place] # (Auto) 0.4 (0.1-0.6) 10/27/18 20:00 Eos # (Auto) 0.1 (0.0-0.7) 10/27/18 20:00 Baso # (Auto) 0.05 K/mm3 (0.0-2.0) 10/27/18 20:00 Sodium 143 mmol/L (132-148) 10/27/18 20:00 Potassium 4.1 mmol/L (3.6-5.0) 10/27/18 20:00 Chloride 109 mmol/L (98-107) H 10/27/18 20:00 Carbon Dioxide 18 mmol/L (21-33) L 10/27/18 20:00 Anion Gap 20 (10-20) 10/27/18 20:00 BUN 16 mg/dL (7-21) 10/27/18 20:00 Creatinine 1.0 mg/dl (0.8-1.5) 10/27/18 20:00 Est GFR ( Amer) > 60 10/27/18 20:00 Est GFR (Non-Af Amer) > 60 10/27/18 20:00 Random Glucose 88 mg/dL (70-110) 10/27/18 20:00 Calcium 10.0 mg/dL (8.4-10.5) 10/27/18 20:00 Magnesium 1.9 mg/dL (1.7-2.2) 10/27/18 20:00 Total Bilirubin 0.6 mg/dL (0.2-1.3) 10/27/18 20:00 AST 40 U/L (17-59) 10/27/18 20:00 ALT 55 U/L (7-56) 10/27/18 20:00 Alkaline Phosphatase 108 U/L (38-126) 10/27/18 20:00 Total Creatine Kinase 390 U/L (35-230) H 10/27/18 20:00 CK-MB (CK-2) 2.1 ng/mL (0.0-3.6) 10/27/18 20:00 CK-MB (CK-2) % Cancelled 10/27/18 20:00 Total Protein 8.7 g/dL (5.8-8.3) H 10/27/18 20:00 Albumin 5.1 g/dL (3.0-4.8) H 10/27/18 20:00 Globulin 3.5 gm/dL 10/27/18 20:00 Albumin/Globulin Ratio 1.5 (1.1-1.8) 10/27/18 20:00 Urine Color Yellow (YELLOW) 10/27/18 20:45 Urine Appearance Clear (CLEAR) 10/27/18 20:45 Urine pH 6.0 (4.7-8.0) 10/27/18 20:45 Ur Specific [place] >= 1.030 (1.005-1.035) 10/27/18 20:45 Urine Protein 30 mg/dL (<30 mg/dL) H 10/27/18 20:45 Urine Glucose (UA) Negative mg/dL (NEGATIVE) 10/27/18 20:45 Urine Ketones 15 mg/dL (NEGATIVE) H 10/27/18 20:45 Urine Blood Negative (NEGATIVE) 10/27/18 20:45 Urine Nitrate Negative (NEGATIVE) 10/27/18 20:45 Urine Bilirubin Negative (NEGATIVE) 10/27/18 20:45 Urine Urobilinogen 0.2 E.U./dL (<1 E.U./dL) 10/27/18 20:45 Ur Leukocyte Esterase Negative Kiersten/uL (NEGATIVE) 10/27/18 20:45 Urine RBC 0 - 2 /hpf (0-2) 10/27/18 20:45 Urine WBC 0 - 2 /hpf (0-6) 10/27/18 20:45 Ur Epithelial Cells 0 - 2 /hpf (0-5) 10/27/18 20:45 Urine Bacteria Small /hpf (NONE) 10/27/18 20:45 Urine Other Uyeast /hpf 10/27/18 20:45 Salicylates < 1 mg/dL (2.0-20.0) L 10/27/18 20:00 Urine Opiates Screen Negative (NEGATIVE) 10/27/18 20:45 Urine Methadone Screen Negative (NEGATIVE) 10/27/18 20:45 Acetaminophen < 10.0 ug/ml (10.0-20.0) L 10/27/18 20:00 Ur Barbiturates Screen Negative (NEGATIVE) 10/27/18 20:45 Ur Phencyclidine Scrn Negative (NEGATIVE) 10/27/18 20:45 Ur Amphetamines Screen Negative (NEGATIVE) 10/27/18 20:45 U Benzodiazepines Scrn Positive (NEGATIVE) H 10/27/18 20:45 U Oth Cocaine Metabols Negative (NEGATIVE) 10/27/18 20:45 U Cannabinoids Screen Positive (NEGATIVE) H 10/27/18 20:45 Alcohol, Quantitative 63 mg/dL (0-10) H 10/27/18 20:00 Discharge Exam - Head Exam Head Exam: ATRAUMATIC, NORMAL INSPECTION, NORMOCEPHALIC Discharge Plan - Follow Up Plan Condition: GOOD Disposition: HOME/ ROUTINE Referrals: PCP,NO [Primary Care Provider] -
--- NOTE | 2018-10-28 15:41 | CP.PCM.PN ---
Subjective - Date & Time of Evaluation Date of Evaluation: 10/28/18 Time of Evaluation: 07:30 - Subjective Subjective: Resident Progress Note for Hospitalist Service Patient examined at bedside. CIWA score was 7 overnight and ativan was administered. Patient does admit to some tremors, states that he feels as if he is still going through withdrawal. He also admits to diarrhea that has been going on for the past week. Denies fevers, chills, chest pain, shortness of breath, abdominal pain, dysuria. Objective - Vital Signs/Intake and Output Vital Signs (last 24 hours): Temp Pulse Resp BP Pulse Ox 98.6 F 96 H 21 122/74 97 10/28/18 12:00 10/28/18 12:00 10/28/18 12:00 10/28/18 12:00 10/28/18 06:00 Intake and Output: 10/28/18 10/28/18 06:59 18:59 Intake Total 2220 Balance 2220 - Medications Medications: Current Medications Chlordiazepoxide (Librium) 25 mg PO BID [facility]; Protocol Last Admin: 10/28/18 09:04 Dose: 25 mg Folic Acid (Folic Acid) 1 mg PO DAILY [facility] Last Admin: 10/28/18 09:04 Dose: 1 mg Sodium Chloride (Sodium Chloride 0.9%) 1,000 mls @ 80 mls/hr IV .[id number] [facility] Last Admin: 10/28/18 07:54 Dose: 80 mls/hr Levalbuterol HCl (Xopenex) 0.63 mg IH [id number] PRN PRN Reason: Shortness of Breath Lorazepam (Ativan) 1 mg IVP Q4H PRN; Protocol PRN Reason: Anxiety Last Admin: 10/28/18 13:39 Dose: 1 mg Multivitamins/Minerals (Therapeutic-M Tab) 1 tab PO 0800 [facility] Last Admin: 10/28/18 09:05 Dose: 1 tab Nicotine (Nicoderm Cq) 1 patch TD DAILY [facility] Last Admin: 10/28/18 09:04 Dose: 1 patch Ondansetron HCl (Zofran Inj) 4 mg IVP Q4H PRN PRN Reason: Nausea/Vomiting Last Admin: 10/28/18 14:34 Dose: 4 mg Pantoprazole Sodium (Protonix Ec Tab) 40 mg PO ACB [facility] Thiamine HCl (Vitamin B1 Tab) 100 mg PO DAILY [facility] Last Admin: 10/28/18 09:04 Dose: 100 mg - Labs Labs: 10/27/18 20:00 10/27/18 20:00 - Additional Findings Additional findings: - Constitutional Appears: Non-toxic, No Acute Distress, Other (mild tremors noted) - Head Exam Head Exam: ATRAUMATIC, NORMOCEPHALIC - Eye Exam Eye Exam: EOMI, Normal appearance, PERRL - ENT Exam ENT Exam: Mucous Membranes Moist, Normal Exam - Respiratory Exam Respiratory Exam: Clear to Auscultation Bilateral, NORMAL BREATHING PATTERN. absent: Accessory Muscle Use, Decreased Breath Sounds, Rales, Rhonchi, Wheezes, Respiratory Distress, Stridor - Cardiovascular Exam Cardiovascular Exam: RRR, +S1, +S2. absent: Gallop, Rubs - GI/Abdominal Exam GI & Abdominal Exam: Normal Bowel Sounds, Soft. absent: Distended, Firm, Guarding, Tenderness - Extremities Exam Extremities exam: Positive for: normal capillary refill, normal inspection, pedal pulses present. Negative for: calf tenderness, pedal edema - Neurological Exam Neurological exam: Alert, Oriented x3 - Psychiatric Exam Psychiatric exam: Normal Affect, Normal Mood - Skin Skin Exam: Dry, Intact, Normal Color, Warm Assessment and Plan - Assessment and Plan (Free Text) Assessment: Patient is a 28 year old male with PMH of polysubstance abuse (including benzodiazepines, heroin, cocaine and marijuana), alcohol abuse and tobacco use disorder who was admitted for management of EtOH withdrawal. Plan: Alcohol withdrawal - Alcohol level 63 - Ativan 1 mg Q4H PRN - Librium 25 mg PO BID - CIWA protocol - Multivitamin, Thiamine, folate - Seizure precautions Diarrhea - history of recurrent hospitalizations - c.diff toxin Polysubstance abuse - UDS positive for benzodiazepines, cannabinoids - Cessation counseling GERD - Protonix 40 mg PO daily PPX - Protonix - SCDs Case seen and discussed with Dr. Aashish Espitia PGY-1
[2018-10-29] MEDS: Levalbuterol 0.63 MG/3 ML Inhal Soln UD IH PRN ×2 (01:40→13:17)
[2018-10-29 01:47] VITALS: RESP 20
[2018-10-29 06:52] LABS: BASO # 0.05 K/mm3 (0.0-2.0); BASO % 0.6 % (0.0-3.0); EOS # 0.3 (0.0-0.7); EOS % 3.5 % (1.5-5.0); GRAN # 3.95 (1.4-6.5); GRAN % 50.6 % (50.0-68.0); LYMPH # 3.1 (1.2-3.4); LYMPH % 39.7 % (22.0-35.0); MEAN CELL VOLUME 94.3 fl (80.0-105.0); MEAN CORPUSCULAR HEMOGLOBIN 30.7 pg (25.0-35.0); MEAN CORPUSCULAR HGB CONC 32.6 g/dl (31.0-37.0); MONO # 0.4 (0.1-0.6); MONO % 5.6 % (1.0-6.0); RBC 4.2 10^6/uL (3.5-6.1); RED CELL DISTRIBUTION WIDTH 13.6 % (11.5-14.5); WHITE BLOOD COUNT 7.8 10^3/uL (4.5-11.0)
--- NOTE | 2018-10-29 06:59 | CP.PCM.PN ---
<EspitiaMerlinedulce maria L - Last Filed: 10/29/18 15:42> Subjective - Date & Time of Evaluation Date of Evaluation: 10/29/18 Time of Evaluation: 06:59 - Subjective Subjective: Resident Progress Note for Hospitalist Service Patient examined at bedside. CIWA score was 6 overnight, patient was given Ativan. Patient also admits to headache, nausea, diarrhea. Denies fevers, chills, dizziness, chest pain, shortness of breath, abdominal pain. Objective - Vital Signs/Intake and Output Vital Signs (last 24 hours): Temp Pulse Resp BP Pulse Ox 98.1 F 73 20 125/82 97 10/29/18 00:01 10/29/18 00:01 10/29/18 00:01 10/29/18 00:01 10/28/18 06:00 Intake and Output: 10/28/18 10/29/18 18:59 06:59 Intake Total 300 Output Total 0 Balance 300 - Medications Medications: Current Medications Chlordiazepoxide (Librium) 25 mg PO BID [facility]; Protocol Last Admin: 10/28/18 18:01 Dose: 25 mg Fluoxetine HCl (Prozac) 60 mg PO DAILY [facility] Folic Acid (Folic Acid) 1 mg PO DAILY [facility] Gabapentin (Neurontin) 600 mg PO TID [facility]; Protocol Last Admin: 10/28/18 18:00 Dose: 600 mg Hydroxyzine Pamoate (Vistaril) 50 mg PO TID PRN; Protocol PRN Reason: Anxiety Last Admin: 10/28/18 23:42 Dose: 50 mg Levalbuterol HCl (Xopenex) 0.63 mg IH [id number] PRN PRN Reason: Shortness of Breath Last Admin: 10/29/18 01:40 Dose: 0.63 mg Lorazepam (Ativan) 1 mg IVP Q4H PRN; Protocol PRN Reason: Anxiety Last Admin: 10/29/18 06:20 Dose: 1 mg Multivitamins/Minerals (Therapeutic-M Tab) 1 tab PO 0800 [facility] Last Admin: 10/28/18 09:05 Dose: 1 tab Nicotine (Nicoderm Cq) 1 patch TD DAILY [facility] Last Admin: 10/28/18 18:00 Dose: 1 patch Ondansetron HCl (Zofran Inj) 4 mg IVP Q4H PRN PRN Reason: Nausea/Vomiting Last Admin: 10/28/18 20:23 Dose: 4 mg Pantoprazole Sodium (Protonix Ec Tab) 40 mg PO ACB [facility] Sodium Chloride ([place] Nasal [place]) 0 ml NS DAILY PRN PRN Reason: Nasal congestion Last Admin: 10/28/18 20:23 Dose: 1 spr Thiamine HCl (Vitamin B1 Tab) 100 mg PO DAILY [facility] Last Admin: 10/28/18 09:04 Dose: 100 mg Trazodone HCl (Desyrel) 50 mg PO HS PRN PRN Reason: Insomnia Last Admin: 10/28/18 21:54 Dose: 50 mg - Labs Labs: 10/27/18 20:00 10/27/18 20:00 - Additional Findings Additional findings: - Constitutional Appears: Non-toxic, No Acute Distress, Other (mild tremors noted) - Head Exam Head Exam: ATRAUMATIC, NORMOCEPHALIC - Eye Exam Eye Exam: EOMI - ENT Exam ENT Exam: Mucous Membranes Moist, Normal Exam - Respiratory Exam Respiratory Exam: Clear to Auscultation Bilateral, NORMAL BREATHING PATTERN. absent: Accessory Muscle Use - Cardiovascular Exam Cardiovascular Exam: RRR, +S1, +S2. absent: Gallop, Rubs - GI/Abdominal Exam GI & Abdominal Exam: Normal Bowel Sounds, Soft. absent: Distended, Firm, Guarding, Tenderness - Extremities Exam Extremities exam: Positive for: normal capillary refill, normal inspection, pedal pulses present. Negative for: calf tenderness, pedal edema - Neurological Exam Neurological exam: Alert, Oriented x3, mild tremor - Psychiatric Exam Psychiatric exam: Normal Affect, Normal Mood - Skin Skin Exam: Dry, Intact, Normal Color, Warm Assessment and Plan - Assessment and Plan (Free Text) Assessment: Patient is a 28 year old male with PMH of polysubstance abuse (including benzodiazepines, heroin, cocaine and marijuana), alcohol abuse and tobacco use disorder who was admitted for management of EtOH withdrawal. Plan: Alcohol withdrawal - Alcohol level 63 on admission - Ativan 1 mg Q4H PRN tapered to 0.5 mg Q4H PRN - Librium 25 mg PO BID tapered to 10 mg PO BID - CIPA protocol - Multivitamin, Thiamine, folate - Seizure precautions Diarrhea - history of recurrent hospitalizations - c.diff toxin Polysubstance abuse - UDS positive for benzodiazepines, cannabinoids - Cessation counseling GERD - Protonix 40 mg PO daily PPX - Protonix - SCDs Case seen and discussed with Dr. Haley Espitia PGY-1 <Nora De Leon - Last Filed: 10/29/18 16:09> Objective - Vital Signs/Intake and Output Vital Signs (last 24 hours): Temp Pulse Resp BP Pulse Ox 97.7 F 54 L 20 109/57 L 93 L 10/29/18 11:47 10/29/18 11:47 10/29/18 11:47 10/29/18 11:47 10/29/18 06:00 Intake and Output: 10/29/18 10/29/18 06:59 18:59 Intake Total 300 Output Total 0 Balance 300 - Medications Medications: Current Medications Chlordiazepoxide (Librium) 10 mg PO BID [facility]; Protocol Fluoxetine HCl (Prozac) 60 mg PO DAILY [facility] Last Admin: 10/29/18 10:21 Dose: 60 mg Folic Acid (Folic Acid) 1 mg PO DAILY [facility] Last Admin: 10/29/18 10:22 Dose: 1 mg Gabapentin (Neurontin) 600 mg PO TID [facility]; Protocol Last Admin: 10/29/18 14:37 Dose: 600 mg Hydroxyzine Pamoate (Vistaril) 50 mg PO TID PRN; Protocol PRN Reason: Anxiety Last Admin: 10/29/18 14:46 Dose: 50 mg Levalbuterol HCl (Xopenex) 0.63 mg IH [id number] PRN PRN Reason: Shortness of Breath Last Admin: 10/29/18 13:17 Dose: 0.63 mg Lorazepam (Ativan) 0.5 mg IVP Q4H PRN; Protocol PRN Reason: Anxiety Multivitamins/Minerals (Therapeutic-M Tab) 1 tab PO 0800 [facility] Last Admin: 10/29/18 10:21 Dose: 1 tab Nicotine (Nicoderm Cq) 1 patch TD DAILY [facility] Last Admin: 10/29/18 10:22 Dose: 1 patch Ondansetron HCl (Zofran Inj) 4 mg IVP Q4H PRN PRN Reason: Nausea/Vomiting Last Admin: 10/29/18 13:01 Dose: 4 mg Pantoprazole Sodium (Protonix Ec Tab) 40 mg PO ACB [facility] Last Admin: 10/29/18 10:21 Dose: 40 mg Sodium Chloride ([place] Nasal [place]) 0 ml NS DAILY PRN PRN Reason: Nasal congestion Last Admin: 10/28/18 20:23 Dose: 1 spr Thiamine HCl (Vitamin B1 Tab) 100 mg PO DAILY [facility] Last Admin: 10/29/18 10:21 Dose: 100 mg Trazodone HCl (Desyrel) 50 mg PO HS PRN PRN Reason: Insomnia Last Admin: 10/28/18 21:54 Dose: 50 mg - Labs Labs: 10/29/18 06:00 10/29/18 06:00 Attending/Attestation - Attestation I have personally seen and examined this patient.: Yes I have fully participated in the care of the patient.: Yes I have reviewed all pertinent clinical information, including history, physical exam and plan: Yes Notes (Text): 10/29/18 16:05 28 year old male with past medical history of substance and alcohol abuse who is admitted for alcohol withdrawal. Continue with tapering librium and ativan. Withdrawal symptoms are slowly improving. Continue with multivitamin, folic acid and thiamine. Counselled on alcohol cessation. Counselled on risks of continued substance abuse. Urine drug screen noted. Complains of diarrhea, however still has not provided stool sample. Will replete and repeat potassium for hypokalemia. Leukocytosis has improved. Out of bed to chair. Possible d/c planning in 24-48 hrs if symptoms continue to improve. Nora De Leon MD Hospitalist.
[2018-10-29 07:21] LABS: HEMOGLOBIN 12.9 g/dL (14.0-18.0)
[2018-10-29 07:30] LABS: ALB/GLOB RATIO 1.3 (1.1-1.8); ALBUMIN 3.9 g/dL (3.0-4.8); ALT/SGPT 40 U/L (7-56); AST/SGOT 34 U/L (17-59); BLOOD UREA NITROGEN 13 mg/dL (7-21); CALCIUM 8.8 mg/dL (8.4-10.5); GFR NON-AFRICAN AMERICAN > 60
[2018-10-29] MEDS ORDERED: Potassium Chloride 20 mEq ER Tab PO ONE (07:36)
[2018-10-29] MEDS ORDERED: Potassium Chloride 20 mEq ER Tab PO STA (08:28)
[2018-10-29] MEDS: Multivitamin With Minerals Tab PO SCH (10:21)
[2018-10-29] MEDS: Pantoprazole 40 mg EC Tab PO SCH (10:21)
[2018-10-30 06:41] VITALS: BP 112/70; PULSE 60; TEMP 97.8; O2SAT 94
--- NOTE | 2018-10-30 07:07 | CP.PCM.PN ---
Subjective - Date & Time of Evaluation Date of Evaluation: 10/30/18 Time of Evaluation: 07:06 - Subjective Subjective: Resident Progress Note for Hospitalist Service Objective - Vital Signs/Intake and Output Vital Signs (last 24 hours): Temp Pulse Resp BP Pulse Ox 97.8 F 60 20 112/70 94 L 10/30/18 06:00 10/30/18 06:00 10/30/18 06:00 10/30/18 06:00 10/30/18 06:00 Intake and Output: 10/30/18 10/30/18 06:59 18:59 Intake Total 240 Balance 240 - Medications Medications: Current Medications Chlordiazepoxide (Librium) 10 mg PO BID [facility]; Protocol Last Admin: 10/29/18 17:31 Dose: 10 mg Fluoxetine HCl (Prozac) 60 mg PO DAILY [facility] Last Admin: 10/29/18 10:21 Dose: 60 mg Folic Acid (Folic Acid) 1 mg PO DAILY [facility] Last Admin: 10/29/18 10:22 Dose: 1 mg Gabapentin (Neurontin) 600 mg PO TID [facility]; Protocol Last Admin: 10/29/18 17:31 Dose: 600 mg Hydroxyzine Pamoate (Vistaril) 50 mg PO TID PRN; Protocol PRN Reason: Anxiety Last Admin: 10/29/18 21:09 Dose: 50 mg Levalbuterol HCl (Xopenex) 0.63 mg IH [id number] PRN PRN Reason: Shortness of Breath Last Admin: 10/29/18 13:17 Dose: 0.63 mg Lorazepam (Ativan) 0.5 mg IVP Q4H PRN; Protocol PRN Reason: Anxiety Last Admin: 10/30/18 01:05 Dose: 0.5 mg Multivitamins/Minerals (Therapeutic-M Tab) 1 tab PO 0800 [facility] Last Admin: 10/29/18 10:21 Dose: 1 tab Nicotine (Nicoderm Cq) 1 patch TD DAILY [facility] Last Admin: 10/29/18 10:22 Dose: 1 patch Ondansetron HCl (Zofran Inj) 4 mg IVP Q4H PRN PRN Reason: Nausea/Vomiting Last Admin: 10/30/18 01:01 Dose: 4 mg Pantoprazole Sodium (Protonix Ec Tab) 40 mg PO ACB [facility] Last Admin: 10/29/18 10:21 Dose: 40 mg Sodium Chloride ([place] Nasal [place]) 0 ml NS DAILY PRN PRN Reason: Nasal congestion Last Admin: 10/28/18 20:23 Dose: 1 spr Thiamine HCl (Vitamin B1 Tab) 100 mg PO DAILY [facility] Last Admin: 10/29/18 10:21 Dose: 100 mg Trazodone HCl (Desyrel) 50 mg PO HS PRN PRN Reason: Insomnia Last Admin: 10/29/18 21:02 Dose: 50 mg - Labs Labs: 10/29/18 06:00 10/29/18 06:00
[2018-10-30 07:09] LABS: ALB/GLOB RATIO 1.3 (1.1-1.8); ALBUMIN 3.8 g/dL (3.0-4.8); ALT/SGPT 48 U/L (7-56); AST/SGOT 33 U/L (17-59); BLOOD UREA NITROGEN 15 mg/dL (7-21); GFR NON-AFRICAN AMERICAN > 60
[2018-10-30 07:11] LABS: BASO # 0.04 K/mm3 (0.0-2.0); BASO % 0.5 % (0.0-3.0); EOS # 0.2 (0.0-0.7); EOS % 2.7 % (1.5-5.0); GRAN # 3.62 (1.4-6.5); GRAN % 46.2 % (50.0-68.0); LYMPH # 3.5 (1.2-3.4); LYMPH % 45.2 % (22.0-35.0); MEAN CELL VOLUME 94.7 fl (80.0-105.0); MEAN CORPUSCULAR HEMOGLOBIN 31.2 pg (25.0-35.0); MEAN CORPUSCULAR HGB CONC 32.9 g/dl (31.0-37.0); MEAN PLATELET VOLUME 10.3 fl (7.0-11.0); MONO # 0.4 (0.1-0.6); MONO % 5.4 % (1.0-6.0); RBC 4.17 10^6/uL (3.5-6.1); RED CELL DISTRIBUTION WIDTH 13.8 % (11.5-14.5); WHITE BLOOD COUNT 7.8 10^3/uL (4.5-11.0)
[2018-10-30] MEDS: Multivitamin With Minerals Tab PO SCH (08:15)
[2018-10-30] MEDS: Pantoprazole 40 mg EC Tab PO SCH (08:15)
--- NOTE | 2018-10-30 11:08 | CP.PCM.DIS ---
<NupurMerlinedulce maria L - Last Filed: 10/30/18 20:33> Provider - Provider Date of Admission: 10/27/18 21:27 Attending physician: Nora De Leon MD Primary care physician: NO PRIMARY CARE PROVIDER Consults: 10/28/18 03:05 Transition In Care/Readmission Reduction Routine Comment: Physician Instructions: Reason For Exam: admission assessment 10/28/18 03:42 Respiratory Therapy Referral Routine Comment: Physician Instructions: Reason For Exam: admisson assessment Time Spent in preparation of Discharge (in minutes): 35 Diagnosis - Discharge Diagnosis (1) Alcohol withdrawal Status: Resolved Priority: Medium Hospital Course - Lab Results Lab Results: Most Recent Lab Values WBC 7.8 10^3/uL (4.5-11.0) 10/30/18 06:00 RBC 4.17 10^6/uL (3.5-6.1) 10/30/18 06:00 Hgb 13.0 g/dL (14.0-18.0) L 10/30/18 06:00 Hct 39.5 % (42.0-52.0) L 10/30/18 06:00 MCV 94.7 fl (80.0-105.0) 10/30/18 06:00 MCH 31.2 pg (25.0-35.0) 10/30/18 06:00 MCHC 32.9 g/dl (31.0-37.0) 10/30/18 06:00 RDW 13.8 % (11.5-14.5) 10/30/18 06:00 Plt Count 225 10^3/uL (120.0-450.0) 10/30/18 06:00 MPV 10.3 fl (7.0-11.0) 10/30/18 06:00 Gran % 46.2 % (50.0-68.0) L 10/30/18 06:00 Lymph % (Auto) 45.2 % (22.0-35.0) H 10/30/18 06:00 Camp % (Auto) 5.4 % (1.0-6.0) 10/30/18 06:00 Eos % (Auto) 2.7 % (1.5-5.0) 10/30/18 06:00 Baso % (Auto) 0.5 % (0.0-3.0) 10/30/18 06:00 Gran # 3.62 (1.4-6.5) 10/30/18 06:00 Lymph # (Auto) 3.5 (1.2-3.4) H 10/30/18 06:00 Camp # (Auto) 0.4 (0.1-0.6) 10/30/18 06:00 Eos # (Auto) 0.2 (0.0-0.7) 10/30/18 06:00 Baso # (Auto) 0.04 K/mm3 (0.0-2.0) 10/30/18 06:00 Sodium 140 mmol/L (132-148) 10/30/18 06:00 Potassium 3.9 mmol/L (3.6-5.0) 10/30/18 06:00 Chloride 110 mmol/L (98-107) H 10/30/18 06:00 Carbon Dioxide 23 mmol/L (21-33) 10/30/18 06:00 Anion Gap 11 (10-20) 10/30/18 06:00 BUN 15 mg/dL (7-21) 10/30/18 06:00 Creatinine 0.9 mg/dl (0.8-1.5) 10/30/18 06:00 Est GFR ( Amer) > 60 10/30/18 06:00 Est GFR (Non-Af Amer) > 60 10/30/18 06:00 Random Glucose 110 mg/dL (70-110) 10/30/18 06:00 Calcium 9.0 mg/dL (8.4-10.5) 10/30/18 06:00 Phosphorus 4.2 mg/dL (2.5-4.5) 10/30/18 06:00 Magnesium 1.9 mg/dL (1.7-2.2) 10/30/18 06:00 Total Bilirubin 0.2 mg/dL (0.2-1.3) 10/30/18 06:00 AST 33 U/L (17-59) 10/30/18 06:00 ALT 48 U/L (7-56) 10/30/18 06:00 Alkaline Phosphatase 110 U/L (38-126) 10/30/18 06:00 Total Creatine Kinase 390 U/L (35-230) H 10/27/18 20:00 CK-MB (CK-2) 2.1 ng/mL (0.0-3.6) 10/27/18 20:00 CK-MB (CK-2) % Cancelled 10/27/18 20:00 Total Protein 6.7 g/dL (5.8-8.3) 10/30/18 06:00 Albumin 3.8 g/dL (3.0-4.8) 10/30/18 06:00 Globulin 2.9 gm/dL 10/30/18 06:00 Albumin/Globulin Ratio 1.3 (1.1-1.8) 10/30/18 06:00 Urine Color Yellow (YELLOW) 10/27/18 20:45 Urine Appearance Clear (CLEAR) 10/27/18 20:45 Urine pH 6.0 (4.7-8.0) 10/27/18 20:45 Ur Specific [place] >= 1.030 (1.005-1.035) 10/27/18 20:45 Urine Protein 30 mg/dL (<30 mg/dL) H 10/27/18 20:45 Urine Glucose (UA) Negative mg/dL (NEGATIVE) 10/27/18 20:45 Urine Ketones 15 mg/dL (NEGATIVE) H 10/27/18 20:45 Urine Blood Negative (NEGATIVE) 10/27/18 20:45 Urine Nitrate Negative (NEGATIVE) 10/27/18 20:45 Urine Bilirubin Negative (NEGATIVE) 10/27/18 20:45 Urine Urobilinogen 0.2 E.U./dL (<1 E.U./dL) 10/27/18 20:45 Ur Leukocyte Esterase Negative Kiersten/uL (NEGATIVE) 10/27/18 20:45 Urine RBC 0 - 2 /hpf (0-2) 10/27/18 20:45 Urine WBC 0 - 2 /hpf (0-6) 10/27/18 20:45 Ur Epithelial Cells 0 - 2 /hpf (0-5) 10/27/18 20:45 Urine Bacteria Small /hpf (NONE) 10/27/18 20:45 Urine Other Uyeast /hpf 10/27/18 20:45 Salicylates < 1 mg/dL (2.0-20.0) L 10/27/18 20:00 Urine Opiates Screen Negative (NEGATIVE) 10/27/18 20:45 Urine Methadone Screen Negative (NEGATIVE) 10/27/18 20:45 Acetaminophen < 10.0 ug/ml (10.0-20.0) L 10/27/18 20:00 Ur Barbiturates Screen Negative (NEGATIVE) 10/27/18 20:45 Ur Phencyclidine Scrn Negative (NEGATIVE) 10/27/18 20:45 Ur Amphetamines Screen Negative (NEGATIVE) 10/27/18 20:45 U Benzodiazepines Scrn Positive (NEGATIVE) H 10/27/18 20:45 U Oth Cocaine Metabols Negative (NEGATIVE) 10/27/18 20:45 U Cannabinoids Screen Positive (NEGATIVE) H 10/27/18 20:45 Alcohol, Quantitative 63 mg/dL (0-10) H 10/27/18 20:00 - Hospital Course Hospital Course: On admission: Pt is a 28 year old male with pmhx of polysubstance abuse (including benzodiazepines, heroin, cocaine and marijuana), alcohol abuse and tobacco use disorder who presents for EtOH withdrawl. He states that his last drink was yesterday at night and he drank 2 pints of vodka. He states that this AM he woke up and started to notice that he was having some sweats, dizziness, and was nauseous. He also states that he noticed that his body was shaking though did not have any hallucinations. He states that he then attempted to work through his symptoms but they were persistently present and then the pt states that he attempted to sleep and see if they would resolve when he woke up. Upon awakening a second time he noticed that all the symptoms were still present and decided to bring himself into the ED. Pt states that he also ran out of his Klonopin yesterday. At this time he admits to tremors, restlessness, SOB, abd pain, which he describes as heart burn, and dizziness. He otherwise denies fevers, chills, hallucinations, chest pain, palpitations, cough, nausea, vomiting or dysuria. Hospital stay: Patient's alcohol level was 63 on admission. CXR was negative for active disease. Patient had UDS positive for benzodiazepines, cannabinoids. Patient was put on CIWA protocol and given ativan and Librium PRN, multivitamin, thiamine, folate. Patient's ativan and librium was tapered down. Patient was optimized for discharge. Please see EMR for full summary. - Date & Time of H&P Date of H&P: 10/28/18 Time of H&P: 02:15 Discharge Exam - Additional Findings Additional findings: - Constitutional Appears: Non-toxic, No Acute Distress - Head Exam Head Exam: ATRAUMATIC, NORMOCEPHALIC - Eye Exam Eye Exam: EOMI - ENT Exam ENT Exam: Mucous Membranes Moist, Normal Exam - Respiratory Exam Respiratory Exam: Clear to Auscultation Bilateral, NORMAL BREATHING PATTERN. absent: Accessory Muscle Use - Cardiovascular Exam Cardiovascular Exam: RRR, +S1, +S2. absent: Gallop, Rubs - GI/Abdominal Exam GI & Abdominal Exam: Normal Bowel Sounds, Soft. absent: Distended, Firm, Guarding, Tenderness - Extremities Exam Extremities exam: Positive for: normal capillary refill, normal inspection, pedal pulses present. Negative for: calf tenderness, pedal edema - Neurological Exam Neurological exam: Alert, Oriented x3 - Psychiatric Exam Psychiatric exam: Normal Affect, Normal Mood - Skin Skin Exam: Dry, Intact, Normal Color, Warm Discharge Plan - Follow Up Plan Condition: GOOD Disposition: HOME/ ROUTINE Patient education suggested?: Yes Instructions: Alcohol Withdrawal (DC), Alcohol Abuse and Alcoholism (DC) Additional Instructions: Please follow up with your primary medical doctor within one week. Please resume your home medications as prescribed. Refrain from drinking alcohol and using illicit drugs. There are AA meetings available at [facility] Room 203 on Saturdays at 11AM. Return to ED if symptoms return or worsen. Referrals: PCP,NO [Primary Care Provider] - <Nora De Leon - Last Filed: 10/31/18 07:45> Provider - Provider Date of Admission: 10/27/18 21:27 Attending physician: Nora De Leon MD Primary care physician: NO PRIMARY CARE PROVIDER Consults: 10/28/18 03:05 Transition In Care/Readmission Reduction Routine Comment: Physician Instructions: Reason For Exam: admission assessment 10/28/18 03:42 Respiratory Therapy Referral Routine Comment: Physician Instructions: Reason For Exam: admisson assessment Hospital Course - Lab Results Lab Results: Most Recent Lab Values WBC 7.8 10^3/uL (4.5-11.0) 10/30/18 06:00 RBC 4.17 10^6/uL (3.5-6.1) 10/30/18 06:00 Hgb 13.0 g/dL (14.0-18.0) L 10/30/18 06:00 Hct 39.5 % (42.0-52.0) L 10/30/18 06:00 MCV 94.7 fl (80.0-105.0) 10/30/18 06:00 MCH 31.2 pg (25.0-35.0) 10/30/18 06:00 MCHC 32.9 g/dl (31.0-37.0) 10/30/18 06:00 RDW 13.8 % (11.5-14.5) 10/30/18 06:00 Plt Count 225 10^3/uL (120.0-450.0) 10/30/18 06:00 MPV 10.3 fl (7.0-11.0) 10/30/18 06:00 Gran % 46.2 % (50.0-68.0) L 10/30/18 06:00 Lymph % (Auto) 45.2 % (22.0-35.0) H 10/30/18 06:00 Camp % (Auto) 5.4 % (1.0-6.0) 10/30/18 06:00 Eos % (Auto) 2.7 % (1.5-5.0) 10/30/18 06:00 Baso % (Auto) 0.5 % (0.0-3.0) 10/30/18 06:00 Gran # 3.62 (1.4-6.5) 10/30/18 06:00 Lymph # (Auto) 3.5 (1.2-3.4) H 10/30/18 06:00 Camp # (Auto) 0.4 (0.1-0.6) 10/30/18 06:00 Eos # (Auto) 0.2 (0.0-0.7) 10/30/18 06:00 Baso # (Auto) 0.04 K/mm3 (0.0-2.0) 10/30/18 06:00 Sodium 140 mmol/L (132-148) 10/30/18 06:00 Potassium 3.9 mmol/L (3.6-5.0) 10/30/18 06:00 Chloride 110 mmol/L (98-107) H 10/30/18 06:00 Carbon Dioxide 23 mmol/L (21-33) 10/30/18 06:00 Anion Gap 11 (10-20) 10/30/18 06:00 BUN 15 mg/dL (7-21) 10/30/18 06:00 Creatinine 0.9 mg/dl (0.8-1.5) 10/30/18 06:00 Est GFR ( Amer) > 60 10/30/18 06:00 Est GFR (Non-Af Amer) > 60 10/30/18 06:00 Random Glucose 110 mg/dL (70-110) 10/30/18 06:00 Calcium 9.0 mg/dL (8.4-10.5) 10/30/18 06:00 Phosphorus 4.2 mg/dL (2.5-4.5) 10/30/18 06:00 Magnesium 1.9 mg/dL (1.7-2.2) 10/30/18 06:00 Total Bilirubin 0.2 mg/dL (0.2-1.3) 10/30/18 06:00 AST 33 U/L (17-59) 10/30/18 06:00 ALT 48 U/L (7-56) 10/30/18 06:00 Alkaline Phosphatase 110 U/L (38-126) 10/30/18 06:00 Total Creatine Kinase 390 U/L (35-230) H 10/27/18 20:00 CK-MB (CK-2) 2.1 ng/mL (0.0-3.6) 10/27/18 20:00 CK-MB (CK-2) % Cancelled 10/27/18 20:00 Total Protein 6.7 g/dL (5.8-8.3) 10/30/18 06:00 Albumin 3.8 g/dL (3.0-4.8) 10/30/18 06:00 Globulin 2.9 gm/dL 10/30/18 06:00 Albumin/Globulin Ratio 1.3 (1.1-1.8) 10/30/18 06:00 Urine Color Yellow (YELLOW) 10/27/18 20:45 Urine Appearance Clear (CLEAR) 10/27/18 20:45 Urine pH 6.0 (4.7-8.0) 10/27/18 20:45 Ur Specific [place] >= 1.030 (1.005-1.035) 10/27/18 20:45 Urine Protein 30 mg/dL (<30 mg/dL) H 10/27/18 20:45 Urine Glucose (UA) Negative mg/dL (NEGATIVE) 10/27/18 20:45 Urine Ketones 15 mg/dL (NEGATIVE) H 10/27/18 20:45 Urine Blood Negative (NEGATIVE) 10/27/18 20:45 Urine Nitrate Negative (NEGATIVE) 10/27/18 20:45 Urine Bilirubin Negative (NEGATIVE) 10/27/18 20:45 Urine Urobilinogen 0.2 E.U./dL (<1 E.U./dL) 10/27/18 20:45 Ur Leukocyte Esterase Negative Kiersten/uL (NEGATIVE) 10/27/18 20:45 Urine RBC 0 - 2 /hpf (0-2) 10/27/18 20:45 Urine WBC 0 - 2 /hpf (0-6) 10/27/18 20:45 Ur Epithelial Cells 0 - 2 /hpf (0-5) 10/27/18 20:45 Urine Bacteria Small /hpf (NONE) 10/27/18 20:45 Urine Other Uyeast /hpf 10/27/18 20:45 Salicylates < 1 mg/dL (2.0-20.0) L 10/27/18 20:00 Urine Opiates Screen Negative (NEGATIVE) 10/27/18 20:45 Urine Methadone Screen Negative (NEGATIVE) 10/27/18 20:45 Acetaminophen < 10.0 ug/ml (10.0-20.0) L 10/27/18 20:00 Ur Barbiturates Screen Negative (NEGATIVE) 10/27/18 20:45 Ur Phencyclidine Scrn Negative (NEGATIVE) 10/27/18 20:45 Ur Amphetamines Screen Negative (NEGATIVE) 10/27/18 20:45 U Benzodiazepines Scrn Positive (NEGATIVE) H 10/27/18 20:45 U Oth Cocaine Metabols Negative (NEGATIVE) 10/27/18 20:45 U Cannabinoids Screen Positive (NEGATIVE) H 10/27/18 20:45 Alcohol, Quantitative 63 mg/dL (0-10) H 10/27/18 20:00 Attending/Attestation - Attestation I have personally seen and examined this patient.: Yes I have fully participated in the care of the patient.: Yes I have reviewed all pertinent clinical information, including history, physical exam and plan: Yes Notes (Text): 10/30/18 28 year old male with past medical history of substance and alcohol abuse who is admitted for alcohol withdrawal. He was started on multivitamin, folic acid and thiamine. He was on tapering librium and ativan with improvement of symptoms. Diarrhea improved as well. He was counselled on alcohol cessation. Counselled on risks of continued substance abuse. Patient is discharged home to follow up with pmd. Counselled on alcohol abstinence. Counselled on risks of continued substance abuse. Nora De Leon MD Hospitalist.
== END 2018-10-30 11:40 | disposition home or self-care (01) | DRG 773 ==
LOC: ED 19:44 → ERH 21:27 → 2RNO 22:46 → 3RSO 10-29 17:09
PROVIDERS: ADMIT Hospitalist; ATTEND Internal Medicine
DX: F10.239 Alcohol dependence with withdrawal, unspecified (principal); F11.10 Opioid abuse, uncomplicated; F14.10 Cocaine abuse, uncomplicated; F12.10 Cannabis abuse, uncomplicated; F31.9 Bipolar disorder, unspecified; E87.6 Hypokalemia; D72.829 Elevated white blood cell count, unspecified; Y90.3 Blood alcohol level of 60-79 mg/100 ml; K21.9 Gastro-esophageal reflux disease without esophagitis; F17.210 Nicotine dependence, cigarettes, uncomplicated

== ENCOUNTER 2018-10-30 23:13 | Inpatient (IN) | payer MEDICAID ==
[2018-10-30 23:34] VITALS: BMI 30.2
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
[2018-10-31 02:18] LABS: ACETAMINOPHEN < 10.0 ug/ml (10.0-20.0); SALICYLATE < 1 mg/dL (2.0-20.0)
[2018-10-31 02:20] LABS: BASO # 0.05 K/mm3 (0.0-2.0); BASO % 0.7 % (0.0-3.0); EOS # 0.3 (0.0-0.7); EOS % 3.4 % (1.5-5.0); GRAN # 3.14 (1.4-6.5); GRAN % 43.3 % (50.0-68.0); HEMOGLOBIN 14.2 g/dL (14.0-18.0); LYMPH # 3.4 (1.2-3.4); LYMPH % 46.4 % (22.0-35.0); MEAN CELL VOLUME 95.1 fl (80.0-105.0); MEAN CORPUSCULAR HEMOGLOBIN 31.6 pg (25.0-35.0); MEAN CORPUSCULAR HGB CONC 33.3 g/dl (31.0-37.0); MEAN PLATELET VOLUME 10.3 fl (7.0-11.0); MONO # 0.5 (0.1-0.6); MONO % 6.2 % (1.0-6.0); RBC 4.49 10^6/uL (3.5-6.1); RED CELL DISTRIBUTION WIDTH 13.7 % (11.5-14.5); WHITE BLOOD COUNT 7.3 10^3/uL (4.5-11.0)
[2018-10-31 02:26] LABS: URINE BILIRUBIN NEGATIVE (NEGATIVE); URINE BLOOD NEGATIVE (NEGATIVE); URINE GLUCOSE (UA) NEGATIVE (NEGATIVE); URINE LEUKOCYTE ESTERASE NEGATIVE Leu/uL (NEGATIVE); URINE PROTEIN NEGATIVE mg/dL (<30 mg/dL); URINE UROBILINOGEN 0.2 E.U./dL (<1 E.U./dL)
[2018-10-31 02:27] LABS: URINE APPEARANCE CLEAR (CLEAR); URINE COLOR YELLOW (YELLOW)
[2018-10-31 02:37] LABS: TROPONIN I < 0.01 ng/mL
[2018-10-31 02:48] LABS: ALB/GLOB RATIO 1.4 (1.1-1.8); ALBUMIN 4.4 g/dL (3.0-4.8); ALT/SGPT 54 U/L (7-56); AST/SGOT 43 U/L (17-59); BARBITURATES, UR NEGATIVE (NEGATIVE); BENZODIAZEPINES, UR POSITIVE (NEGATIVE); BLOOD UREA NITROGEN 13 mg/dL (7-21); CALCIUM 8.6 mg/dL (8.4-10.5); GFR NON-AFRICAN AMERICAN > 60; OPIATES, UR NEGATIVE (NEGATIVE); PHENCYCLIDINE, UR NEGATIVE (NEGATIVE)
--- NOTE | 2018-10-31 07:11 | ED PDOC ---
Physical Exam Vital Signs Reviewed: Yes Vital Signs Temp Pulse Resp BP Pulse Ox 10/31/18 06:31 98.2 F 86 16 110/52 L 96 10/31/18 04:10 82 18 95/48 L 95 10/30/18 23:32 98.5 F 89 18 111/61 96 Temperature: Afebrile Blood Pressure: Normal Pulse: Regular Respiratory Rate: Normal Appearance: Positive for: Well-Appearing, Non-Toxic, Comfortable Pain Distress: None Mental Status: Positive for: Alert and Oriented X 3 Medical Decision Making ED Course and Treatment: 10/31/18 07:09 Case endorsed to me by Dr. Gaona, pending PES screening. 10/31/18 07:49 Dr. Mi evaluated pt, states he will be admitted. - Lab Interpretations Lab Results: 10/31/18 01:30 10/31/18 01:30 Lab Results 10/31/18 01:30: Alcohol, Quantitative 221 H 10/31/18 01:30: Salicylates < 1 L, Acetaminophen < 10.0 L 10/31/18 01:30: Urine Opiates Screen Negative, Urine Methadone Screen Negative, Ur Barbiturates Screen Negative, Ur Phencyclidine Scrn Negative, Ur Amphetamines Screen Negative, U Benzodiazepines Scrn Positive H, U Oth Cocaine Metabols Negative, U Cannabinoids Screen Negative 10/31/18 01:30: Sodium 144, Potassium 4.1, Chloride 111 H, Carbon Dioxide 23, Anion Gap 13, BUN 13, Creatinine 1.1, Est GFR ( Amer) > 60, Est GFR (Non- Af Amer) > 60, Random Glucose 94, Calcium 8.6, Magnesium 2.3 H, Total Bilirubin 0.2, AST 43, ALT 54, Alkaline Phosphatase 84, Total Creatine Kinase 171, Troponin I < 0.01, Total Protein 7.5, Albumin 4.4, Globulin 3.2, Albumin/Globulin Ratio 1.4 10/31/18 01:30: Urine Color Yellow, Urine Appearance Clear, Urine pH 6.0, Ur Specific [place] 1.010, Urine Protein Negative, Urine Glucose (UA) Negative, Urine Ketones Negative, Urine Blood Negative, Urine Nitrate Negative, Urine B ilirubin Negative, Urine Urobilinogen 0.2, Ur Leukocyte Esterase Negative 10/31/18 01:30: WBC 7.3, RBC 4.49, Hgb 14.2, Hct 42.7, MCV 95.1, MCH 31.6, MCHC 33.3, RDW 13.7, Plt Count 221, MPV 10.3, Gran % 43.3 L, Lymph % (Auto) 46.4 H, [place] % (Auto) 6.2 H, Eos % (Auto) 3.4, Baso % (Auto) 0.7, Gran # 3.14, Lymph # (Auto) 3.4, [place] # (Auto) 0.5, Eos # (Auto) 0.3, Baso # (Auto) 0.05 - RAD Interpretation Radiology Orders: 10/30/18 23:52 CHEST PORTABLE [RAD] Stat - Scribe Statement The provider has reviewed the documentation as recorded by the Scribe Batool Luna All medical record entries made by the Scribe were at my direction and personally dictated by me. I have reviewed the chart and agree that the record accurately reflects my personal performance of the history, physical exam, medical decision making, and the department course for this patient. I have also personally directed, reviewed, and agree with the discharge instructions and disposition. Disposition/Present on Arrival - Present on Arrival Any Indicators Present on Arrival: No History of DVT/PE: No History of Uncontrolled Diabetes: No Urinary Catheter: No History of Decub. Ulcer: No History Surgical Site Infection Following: None - Disposition Have Diagnosis and Disposition been Completed?: Yes Diagnosis: ETOH abuse, Depression Disposition: HOSPITALIZED Disposition Time: 07:49 Patient Plan: Admission Patient Problems: Current Active Problems Problem Status Onset Alcohol abuse Chronic Condition: STABLE
[2018-10-31 09:13] VITALS: O2SAT 98
--- NOTE | 2018-10-31 09:36 | CARD ---
APPROVED REPORT Date of service: 10/31/2018 EKG Measurement Heart [id number] <Conclusion> Normal sinus rhythm Incomplete right bundle branch block C/W ECG 10/27/18: the rate is slower
--- NOTE | 2018-10-31 11:36 | RAD ---
Date of service: 10/30/2018 HISTORY: Chest pain COMPARISON: 10/27/2018. FINDINGS: LUNGS: No active pulmonary disease. PLEURA: No significant pleural effusion identified, no pneumothorax apparent. CARDIOVASCULAR: No atherosclerotic calcification present Normal. OSSEOUS STRUCTURES: No significant abnormalities. VISUALIZED UPPER ABDOMEN: Normal. OTHER FINDINGS: None. IMPRESSION: No active disease. No significant interval change compared to the prior examination(s).
--- NOTE | 2018-10-31 13:03 | PCM.BM ---
<Eliot Sigala - Last Filed: 10/31/18 13:00> Treatment Plan Problems - Problems identified on initial assessmt Anxiety related to alcohol abuse Date Initiated: 10/31/18 Time Initiated: 13:01 Assessment reference: HP, NA, Other Status: Active hopelessness/helplessness Date Initiated: 10/31/18 Time Initiated: 13:02 Assessment reference: HP, NA, Other Status: Active ineffective family coping Assessment reference: HP Status: Active Knowledge deficit re alcohol abuse Assessment reference: HP, Other Status: Active Treatment assets and liabiliti Patient Assests: adapts well, cooperative, educated, ADL independent, good support system, negotiates basic needs, cognitively intact Patient Liabilities: live alone, substance abuse - Milieu Protocol Maintain good personal hygiene: daily Encourage regular showers, daily Remind patient to perform daily oral care, daily Assist patient to perform ADL's Maintain personal safety: daily Educate patient to report safety concerns to staff, daily Monitor environment for contraband/sharps Medication safety: Monitor for expected outcome, potential side effects: daily, Assess barriers to learning: daily, Assess readiness for medication education: daily Discharge/Continuing Care - Education Needs Education Needs: Patient Medication, Patient Diagnosis/Disease Process, Patient Coping Skills, Patient Anger Management skills, Patient Community resources, Patient Activities of Daily Living, Patient Uses of Medical Equipment, Patient Health Practices/Safety, Patient Personal Hygiene/Grooming, Patient Aftercare Safety Plan, Patient Other - Discharge Discharge Criteria: Free of Suicidal thoughts, Free of Homicidal thoughts, Free of paranoid thoughts, Free of agitation, No longer exhibiting s/s of withdrawal, Reduction of target symptoms Discharge to:: Home <Digna Cunningham - Last Filed: 11/01/18 10:17> Family Contact Family involvement: Famliy/SO not involved <Hollie Orellana - Last Filed: 11/01/18 13:31> - Diagnosis (1) Alcohol use disorder Status: Chronic Interventions: 11/01/18 13:31 Monitoring withdrawal symptoms Medical detoxification Pharmacotherapy for alcohol/benzos/opioid dependence Maintaining sobriety Relapse prevention Possible rehabilitation Motivational interviewing 12-step programs: AA meetings (2) Substance induced mood disorder Status: Chronic Interventions: 11/01/18 13:31 Psychoeducation Psychopharmacology/adjustment of medications as needed/ monitoring possible side effects Evaluate pt on daily basis Compliance with medications and follow up appointments Suicide and homicide risk assessment and prevention Relapse prevention Reduction of symptoms Improve functional status Family involvement As outpatient: cognitive behavioral therapy <Marie Vinson - Last Filed: 11/01/18 16:14>
[2018-11-01 07:51] LABS: GLUCOSE,FASTING 100 mg/dL (65-110); HDL CHOLESTEROL 47 mg/dL (29-60)
[2018-11-01 08:01] LABS: LDL CHOLESTEROL 118 mg/dL (0-129)
[2018-11-01 08:05] LABS: FREE T4 0.64 ng/dL (0.78-2.19)
[2018-11-01] MEDS: Multivitamin With Minerals Tab PO SCH (10:09)
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
[2018-11-02] MEDS: Multivitamin With Minerals Tab PO SCH (08:52)
--- NOTE | 2018-11-02 10:44 | PCM.PYCHPN ---
Psychiatric Progress Note - Psychiatric Progress Note Patient seen today, length of contact: 30 minutes Patient Chief Complaint: "I am more or less comfortable" Problems Identified/Issues Discussed: Suicide/ homicide prevention, past psychiatric h/o, current psychiatric sym ptoms, medical problems, risk/benefits and alternatives of medications, medications compliance, coping strategies, substance abuse h/o, relapse prevention, importance of follow up with psychiatrist and therapist, discharge plan. Medical Problems: Alcohol use disorder, see medical team notes for more detailed information Diagnostic Results: 10/31/18 01:30 10/31/18 01:30 Lab Results 11/01/18 07:15: Fasting Glucose 100, Triglycerides 342 H, Cholesterol 223 H, LDL Cholesterol Direct 118, HDL Cholesterol 47 11/01/18 07:15: RPR Nonreactive 11/01/18 07:15: Free T4 0.64 L, TSH 3rd Generation 2.16 10/31/18 01:30: Alcohol, Quantitative 221 H 10/31/18 01:30: Salicylates < 1 L, Acetaminophen < 10.0 L 10/31/18 01:30: Urine Opiates Screen Negative, Urine Methadone Screen Negative, Ur Barbiturates Screen Negative, Ur Phencyclidine Scrn Negative, Ur Amphetamines Screen Negative, U Benzodiazepines Scrn Positive H, U Oth Cocaine Metabols Negative, U Cannabinoids Screen Negative 10/31/18 01:30: Sodium 144, Potassium 4.1, Chloride 111 H, Carbon Dioxide 23, Anion Gap 13, BUN 13, Creatinine 1.1, Est GFR ( Amer) > 60, Est GFR (Non- Af Amer) > 60, Random Glucose 94, Calcium 8.6, Magnesium 2.3 H, Total Bilirubin 0.2, AST 43, ALT 54, Alkaline Phosphatase 84, Total Creatine Kinase 171, Trop onin I < 0.01, Total Protein 7.5, Albumin 4.4, Globulin 3.2, Albumin/Globulin Ratio 1.4 10/31/18 01:30: Urine Color Yellow, Urine Appearance Clear, Urine pH 6.0, Ur Specific [place] 1.010, Urine Protein Negative, Urine Glucose (UA) Negative, Urine Ketones Negative, Urine Blood Negative, Urine Nitrate Negative, Urine Bilirubin Negative, Urine Urobilinogen 0.2, Ur Leukocyte Esterase Negative 10/31/18 01:30: WBC 7.3, RBC 4.49, Hgb 14.2, Hct 42.7, MCV 95.1, MCH 31.6, MCHC 33.3, RDW 13.7, Plt Count 221, MPV 10.3, Gran % 43.3 L, Lymph % (Auto) 46.4 H, [place] % (Auto) 6.2 H, Eos % (Auto) 3.4, Baso % (Auto) 0.7, Gran # 3.14, Lymph # (Auto) 3.4, [place] # (Auto) 0.5, Eos # (Auto) 0.3, Baso # (Auto) 0.05 Vital Signs Temp Pulse Resp BP Pulse Ox 11/02/18 07:27 97.8 F 50 L 18 103/60 11/01/18 16:01 98 H 145/106 H 11/01/18 07:00 98.5 F 57 L 20 117/74 10/31/18 16:00 54 L 123/75 10/31/18 09:11 97.7 F 82 18 125/83 98 10/31/18 07:20 98.8 F 80 18 121/66 99 10/31/18 06:31 98.2 F 86 16 110/52 L 96 10/31/18 04:10 82 18 95/48 L 95 10/30/18 23:32 98.5 F 89 18 111/61 96 DSM 5 Symptoms Update: shortly pt is a 28 year old male, whose past medical history includes polysubstance abuse and alcohol abuse, h/o substance induced mood disorder, self reported h/o ?ADHD, multiple ED/medical floor admissions, as well as psych admissions, h/o chronic noncompliance with f/u appts and medications, chronic resistance to go to inpatient rehab, pt also has h/o involuntary commitment at [facility] and h/o impulsive/suicidal behavior in the past. pt was on the medical site 10/27/18-10/30/18 for alcohol withdrawal syndrome, patient was discharged back home, patient came back to the hospital on 10/31/2018 reported that she want to hurt himself due to his constant chest pain for the past week, body aches, and alcohol withdrawals. pt is very familiar to the unit from multiple psych admissions, most recent was 10/12/2018 to 10/18/2018, since that time pt was in ED 3times. pt was discharged from the medial floor on 10/30/2018. Patient was seen next to the nursing station, patient presented well, affect was reactive, mood congruent, patient reported that she had a good sleep, patient reported that she still has", "withdrawal symptoms patient had one episode of elevated blood pressure, patient is on as needed for alcohol withdrawal symptoms. As per staff patient at times ablative, medication seeking behavior, strong borderline personality traits but no agitation or aggression. So far patient tolerates medications well, no side effects observed or reported, aims 0, no EPS. DSM 5 Diagnosis: r/o substance induced mood disorder r/o mdd alcohol use disorder Medication Change: Yes ( lorazepam decreased) Medical Record Reviewed: Yes Consults ordered or reviewed: Patient was seen by medical team in the emergency room, no physical complaints Mental Status Examination - Cognitive Function Orientation: Person, Place Memory: Intact Attention: Poor (Some improvement) Concentration: Poor (Some improvement) Association: WNL Fund of Knowledge: WNL - Mood Mood: Depressed (irritable), Anxious - Affect Affect: Constricted - Formal Thought Process Formal Thought Process: No Impairment - Suicidal Ideation Suicidal Ideation: No - Homicidal Ideation Homicidal Ideation: No Goal/Treatment Plan - Goal/Treatment Plan Need for Continued Stay: Remain at risks for inpatient hospitalization, Severe depression anxiety, Discharge may exacerbated symptoms, Failed transitioning, Severe functional impairment Progress Toward Problem(s) and Goals/Treatment Plan: Milieu/structure/supportive therapy Medical evaluation was done in ED, if pt will meet criteria, will call again SW consultation for discharge plan and social issues Med management Ativan as needed for alcohol withdrawal symptoms Multivitamins, thiamine, folic acid Trazodone 50 mg at the nighttime for insomnia and depression Prozac 30 mg twice a day for depression and anxiety Neurontin 300 mg 3 times a day for alcohol withdrawal symptoms as well as neuropathy Vistaril 50 mg 3 times a day as needed for anxiety Naltrexone treatment was discussed with the patient but patient expressed no interest Family involvement Follow up on labs Will monitor closely Pt was educated about risk/benefits and alternatives of medications, coping strategies (safety plan, suicide prevention), relapse prevention, importance of follow up with psychiatrist and therapist, stay away from drugs/alcohol/smoking
[2018-11-03] MEDS: Multivitamin With Minerals Tab PO SCH (08:27)
--- NOTE | 2018-11-03 13:59 | PCM.PYCHPN ---
Psychiatric Progress Note - Psychiatric Progress Note Patient seen today, length of contact: 30 minutes Patient Chief Complaint: "I am probably withdrawing" Problems Identified/Issues Discussed: Suicide/ homicide prevention, past psychiatric h/o, current psychiatric symptom s, medical problems, risk/benefits and alternatives of medications, medications compliance, coping strategies, substance abuse h/o, relapse prevention, importance of follow up with psychiatrist and therapist, discharge plan. Medical Problems: Alcohol use disorder, see medical team notes for more detailed information Diagnostic Results: 10/31/18 01:30 10/31/18 01:30 Lab Results 11/01/18 07:15: Fasting Glucose 100, Triglycerides 342 H, Cholesterol 223 H, LDL Cholesterol Direct 118, HDL Cholesterol 47 11/01/18 07:15: RPR Nonreactive 11/01/18 07:15: Free T4 0.64 L, TSH 3rd Generation 2.16 10/31/18 01:30: Alcohol, Quantitative 221 H 10/31/18 01:30: Salicylates < 1 L, Acetaminophen < 10.0 L 10/31/18 01:30: Urine Opiates Screen Negative, Urine Methadone Screen Negative, Ur Barbiturates Screen Negative, Ur Phencyclidine Scrn Negative, Ur Amphetamines Screen Negative, U Benzodiazepines Scrn Positive H, U Oth Cocaine Metabols Negative, U Cannabinoids Screen Negative 10/31/18 01:30: Sodium 144, Potassium 4.1, Chloride 111 H, Carbon Dioxide 23, Anion Gap 13, BUN 13, Creatinine 1.1, Est GFR ( Amer) > 60, Est GFR (Non- Af Amer) > 60, Random Glucose 94, Calcium 8.6, Magnesium 2.3 H, Total Bilirubin 0.2, AST 43, ALT 54, Alkaline Phosphatase 84, Total Creatine Kinase 171, Troponin I < 0.01, Total Protein 7.5, Albumin 4.4, Globulin 3.2, Albumin/Globulin Ratio 1.4 10/31/18 01:30: Urine Color Yellow, Urine Appearance Clear, Urine pH 6.0, Ur Specific [place] 1.010, Urine Protein Negative, Urine Glucose (UA) Negative, Urine Ketones Negative, Urine Blood Negative, Urine Nitrate Negative, Urine Bilirubin Negative, Urine Urobilinogen 0.2, Ur Leukocyte Esterase Negative 10/31/18 01:30: WBC 7.3, RBC 4.49, Hgb 14.2, Hct 42.7, MCV 95.1, MCH 31.6, MCHC 33.3, RDW 13.7, Plt Count 221, MPV 10.3, Gran % 43.3 L, Lymph % (Auto) 46.4 H, [place] % (Auto) 6.2 H, Eos % (Auto) 3.4, Baso % (Auto) 0.7, Gran # 3.14, Lymph # (Auto) 3.4, [place] # (Auto) 0.5, Eos # (Auto) 0.3, Baso # (Auto) 0.05 Vital Signs Temp Pulse Resp BP Pulse Ox 11/02/18 07:27 97.8 F 50 L 18 103/60 11/01/18 16:01 98 H 145/106 H 11/01/18 07:00 98.5 F 57 L 20 117/74 10/31/18 16:00 54 L 123/75 10/31/18 09:11 97.7 F 82 18 125/83 98 10/31/18 07:20 98.8 F 80 18 121/66 99 10/31/18 06:31 98.2 F 86 16 110/52 L 96 10/31/18 04:10 82 18 95/48 L 95 10/30/18 23:32 98.5 F 89 18 111/61 96 DSM 5 Symptoms Update: shortly pt is a 28 year old male, whose past medical history includes polysubstance abuse and alcohol abuse, h/o substance induced mood disorder, self reported h/o ?ADHD, multiple ED/medical floor admissions, as well as psych admissions, h/o chronic noncompliance with f/u appts and medications, chronic resistance to go to inpatient rehab, pt also has h[place] [facility] and h/o impulsive/suicidal behavior in the past. pt was on the medical site 10/27/18-10/30/18 for alcohol withdrawal syndrome, patient was discharged back home, patient came back to the hospital on 10/31/2018 reported that she want to hurt himself due to his constant chest pain for the past week, body aches, and alcohol withdrawals. pt is very familiar to the unit from multiple psych admissions, most recent was 10/12/2018 to 10/18/2018, since that time pt was in ED 3times. pt was discharged from the medial floor on 10/30/2018. Patient was seen today at the TV area, hygiene is better pt still fixated on ativan and "possible withdrawals". no physical signs of alcohol withdarals. pt c/o insomnia and depression, will increase Trazodone. ativan tapering dose. pt c/o nausea and vomiting/diarrhea, unwitnessed, zofran given, pt educated to call for saff in case of similar symptoms. as per staff pt has medication seeking behavior, strong borderline personality traits but no agitation or aggression. So far patient tolerates medications well, no side effects observed or reported, aims 0, no EPS. DSM 5 Diagnosis: r/o substance induced mood disorder r/o mdd alcohol use disorder Medication Change: Yes (trazodone increased, ativan decreased) Medical Record Reviewed: Yes Mental Status Examination - Cognitive Function Orientation: Person, Place Memory: Intact Attention: Poor (Some improvement) Concentration: Poor (Some improvement) Association: WNL Fund of Knowledge: WNL - Mood Mood: Depressed (irritable), Anxious - Affect Affect: Constricted - Formal Thought Process Formal Thought Process: No Impairment - Suicidal Ideation Suicidal Ideation: No - Homicidal Ideation Homicidal Ideation: No Goal/Treatment Plan - Goal/Treatment Plan Need for Continued Stay: Remain at risks for inpatient hospitalization, Severe depression anxiety, Discharge may exacerbated symptoms, Failed transitioning, Severe functional impairment Progress Toward Problem(s) and Goals/Treatment Plan: Milieu/structure/supportive therapy Medical evaluation was done in ED, if pt will meet criteria, will call again SW consultation for discharge plan and social issues Med management Ativan as needed for alcohol withdrawal symptoms Multivitamins, thiamine, folic acid Trazodone 100 mg at the nighttime for insomnia and depression Prozac 30 mg twice a day for depression and anxiety Neurontin 300 mg 3 times a day for alcohol withdrawal symptoms as well as neuropathy Vistaril 50 mg 3 times a day as needed for anxiety Naltrexone treatment was discussed with the patient but patient expressed no interest zofran 4mg q8prn for nausea Family involvement Follow up on labs Will monitor closely Pt was educated about risk/benefits and alternatives of medications, coping strategies (safety plan, suicide prevention), relapse prevention, importance of follow up with psychiatrist and therapist, stay away from drugs/alcohol/smoking
[2018-11-04] MEDS: Multivitamin With Minerals Tab PO SCH (09:20)
--- NOTE | 2018-11-04 14:34 | PCM.PYCHPN ---
Psychiatric Progress Note - Psychiatric Progress Note Patient seen today, length of contact: 30 minutes Patient Chief Complaint: "I feel little better, slept well" Problems Identified/Issues Discussed: Suicide/ homicide prevention, past psychiatric h/o, current psychiatric symptoms, medical problems, risk/benefits and alternatives of medications, medications compliance, coping strategies, substance abuse h/o, relapse prevention, importance of follow up with psychiatrist and therapist, discharge plan. Medical Problems: Alcohol use disorder, see medical team notes for more detailed information Diagnostic Results: 10/31/18 01:30 10/31/18 01:30 Lab Results 11/01/18 07:15: Fasting Glucose 100, Triglycerides 342 H, Cholesterol 223 H, LDL Cholesterol Direct 118, HDL Cholesterol 47 11/01/18 07:15: RPR Nonreactive 11/01/18 07:15: Free T4 0.64 L, TSH 3rd Generation 2.16 10/31/18 01:30: Alcohol, Quantitative 221 H 10/31/18 01:30: Salicylates < 1 L, Acetaminophen < 10.0 L 10/31/18 01:30: Urine Opiates Screen Negative, Urine Methadone Screen Negative, Ur Barbiturates Screen Negative, Ur Phencyclidine Scrn Negative, Ur Amphetamines Screen Negative, U Benzodiazepines Scrn Positive H, U Oth Cocaine Metabols Negative, U Cannabinoids Screen Negative 10/31/18 01:30: Sodium 144, Potassium 4.1, Chloride 111 H, Carbon Dioxide 23, Anion Gap 13, BUN 13, Creatinine 1.1, Est GFR ( Amer) > 60, Est GFR (Non- Af Amer) > 60, Random Glucose 94, Calcium 8.6, Magnesium 2.3 H, Total Bilirubin 0.2, AST 43, ALT 54, Alkaline Phosphatase 84, Total Creatine Kinase 171, T roponin I < 0.01, Total Protein 7.5, Albumin 4.4, Globulin 3.2, Albumin/Globulin Ratio 1.4 10/31/18 01:30: Urine Color Yellow, Urine Appearance Clear, Urine pH 6.0, Ur Specific [place] 1.010, Urine Protein Negative, Urine Glucose (UA) Negative, Urine Ketones Negative, Urine Blood Negative, Urine Nitrate Negative, Urine Bilirubin Negative, Urine Urobilinogen 0.2, Ur Leukocyte Esterase Negative 10/31/18 01:30: WBC 7.3, RBC 4.49, Hgb 14.2, Hct 42.7, MCV 95.1, MCH 31.6, MCHC 33.3, RDW 13.7, Plt Count 221, MPV 10.3, Gran % 43.3 L, Lymph % (Auto) 46.4 H, [place] % (Auto) 6.2 H, Eos % (Auto) 3.4, Baso % (Auto) 0.7, Gran # 3.14, Lymph # (Auto) 3.4, [place] # (Auto) 0.5, Eos # (Auto) 0.3, Baso # (Auto) 0.05 Vital Signs Temp Pulse Resp BP Pulse Ox 11/02/18 07:27 97.8 F 50 L 18 103/60 11/01/18 16:01 98 H 145/106 H 11/01/18 07:00 98.5 F 57 L 20 117/74 10/31/18 16:00 54 L 123/75 10/31/18 09:11 97.7 F 82 18 125/83 98 10/31/18 07:20 98.8 F 80 18 121/66 99 10/31/18 06:31 98.2 F 86 16 110/52 L 96 10/31/18 04:10 82 18 95/48 L 95 10/30/18 23:32 98.5 F 89 18 111/61 96 DSM 5 Symptoms Update: shortly pt is a 28 year old male, whose past medical history includes polysubstance abuse and alcohol abuse, h/o substance induced mood disorder, self reported h/o ?ADHD, multiple ED/medical floor admissions, as well as psych admissions, h/o chronic noncompliance with f/u appts and medications, chronic resistance to go to inpatient rehab, pt also has h/o involuntary commitment at [facility] and h/o impulsive/suicidal behavior in the past. pt was on the medical site 10/27/18-10/30/18 for alcohol withdrawal syndrome, patient was discharged back home, patient came back to the hospital on 10/31/2018 reported that she want to hurt himself due to his constant chest pain for the past week, body aches, and alcohol withdrawals. pt is very familiar to the unit from multiple psych admissions, most recent was 10/12/2018 to 10/18/2018, since that time pt was in ED 3times. pt was discharged from the medial floor on 10/30/2018. Patient was seen today at the TV area, hygiene is better presently patient was not possible about, Ativan to be increased, patient reported that he was sleeping better, patient reported that he still feels depressed and mildly anxious, contracted for safety, no psychosis.patient tolerated increased dose of trazodone very well.. ativan tapering dose. Patient denied any nausea or vomiting/diarrhea today. as per staff pt has medication seeking behavior, strong borderline personality traits but no agitation or aggression. So far patient tolerates medications well, no side effects observed or reported, aims 0, no EPS. DSM 5 Diagnosis: r/o substance induced mood disorder r/o mdd alcohol use disorder Medication Change: Yes (ativan decreased) Medical Record Reviewed: Yes Mental Status Examination - Cognitive Function Orientation: Person, Place Memory: Intact Attention: Poor (Some improvement) Concentration: Poor (Some improvement) Association: WNL Fund of Knowledge: WNL - Mood Mood: Depressed (irritable), Anxious - Affect Affect: Constricted - Formal Thought Process Formal Thought Process: No Impairment - Suicidal Ideation Suicidal Ideation: No - Homicidal Ideation Homicidal Ideation: No Goal/Treatment Plan - Goal/Treatment Plan Need for Continued Stay: Remain at risks for inpatient hospitalization, Severe depression anxiety, Discharge may exacerbated symptoms, Failed transitioning, [place] functional impairment Progress Toward Problem(s) and Goals/Treatment Plan: Milieu/structure/supportive therapy Medical evaluation was done in ED, if pt will meet criteria, will call again SW consultation for discharge plan and social issues Med management Ativan as needed for alcohol withdrawal symptoms Multivitamins, thiamine, folic acid Trazodone 100 mg at the nighttime for insomnia and depression Prozac 30 mg twice a day for depression and anxiety Neurontin 300 mg 3 times a day for alcohol withdrawal symptoms as well as neuropathy Vistaril 50 mg 3 times a day as needed for anxiety Naltrexone treatment was discussed with the patient but patient expressed no interest zofran 4mg q8prn for nausea Family involvement Follow up on labs Will monitor closely Pt was educated about risk/benefits and alternatives of medications, coping strategies (safety plan, suicide prevention), relapse prevention, importance of follow up with psychiatrist and therapist, stay away from drugs/alcohol/smoking Estimated Date of D/C: 11/08/18
[2018-11-05] MEDS: Multivitamin With Minerals Tab PO SCH (08:30)
--- NOTE | 2018-11-05 14:58 | PCM.PYCHPN ---
Psychiatric Progress Note - Psychiatric Progress Note Patient seen today, length of contact: 30 minutes Patient Chief Complaint: "I feel little better, slept well" Problems Identified/Issues Discussed: Suicide/ homicide prevention, past psychiatric h/o, current psychiatric symptoms, medical problems, risk/benefits and alternatives of medications, medications compliance, coping strategies, substance abuse h/o, relapse prevention, importance of follow up with psychiatrist and therapist, discharge plan. Medical Problems: Alcohol use disorder, see medical team notes for more detailed information Diagnostic Results: 10/31/18 01:30 10/31/18 01:30 Lab Results 11/01/18 07:15: Fasting Glucose 100, Triglycerides 342 H, Cholesterol 223 H, LDL Cholesterol Direct 118, HDL Cholesterol 47 11/01/18 07:15: RPR Nonreactive 11/01/18 07:15: Free T4 0.64 L, TSH 3rd Generation 2.16 10/31/18 01:30: Alcohol, Quantitative 221 H 10/31/18 01:30: Salicylates < 1 L, Acetaminophen < 10.0 L 10/31/18 01:30: Urine Opiates Screen Negative, Urine Methadone Screen Negative, Ur Barbiturates Screen Negative, Ur Phencyclidine Scrn Negative, Ur Amphetamines Screen Negative, U Benzodiazepines Scrn Positive H, U Oth Cocaine Metabols Negative, U Cannabinoids Screen Negative 10/31/18 01:30: Sodium 144, Potassium 4.1, Chloride 111 H, Carbon Dioxide 23, Anion Gap 13, BUN 13, Creatinine 1.1, Est GFR ( Amer) > 60, Est GFR (Non- Af Amer) > 60, Random Glucose 94, Calcium 8.6, Magnesium 2.3 H, Total Bilirubin 0.2, AST 43, ALT 54, Alkaline Phosphatase 84, Total Creatine Kinase 171, T roponin I < 0.01, Total Protein 7.5, Albumin 4.4, Globulin 3.2, Albumin/Globulin Ratio 1.4 10/31/18 01:30: Urine Color Yellow, Urine Appearance Clear, Urine pH 6.0, Ur Specific [place] 1.010, Urine Protein Negative, Urine Glucose (UA) Negative, Urine Ketones Negative, Urine Blood Negative, Urine Nitrate Negative, Urine Bilirubin Negative, Urine Urobilinogen 0.2, Ur Leukocyte Esterase Negative 10/31/18 01:30: WBC 7.3, RBC 4.49, Hgb 14.2, Hct 42.7, MCV 95.1, MCH 31.6, MCHC 33.3, RDW 13.7, Plt Count 221, MPV 10.3, Gran % 43.3 L, Lymph % (Auto) 46.4 H, [place] % (Auto) 6.2 H, Eos % (Auto) 3.4, Baso % (Auto) 0.7, Gran # 3.14, Lymph # (Auto) 3.4, [place] # (Auto) 0.5, Eos # (Auto) 0.3, Baso # (Auto) 0.05 Vital Signs Temp Pulse Resp BP Pulse Ox 11/02/18 07:27 97.8 F 50 L 18 103/60 11/01/18 16:01 98 H 145/106 H 11/01/18 07:00 98.5 F 57 L 20 117/74 10/31/18 16:00 54 L 123/75 10/31/18 09:11 97.7 F 82 18 125/83 98 10/31/18 07:20 98.8 F 80 18 121/66 99 10/31/18 06:31 98.2 F 86 16 110/52 L 96 10/31/18 04:10 82 18 95/48 L 95 10/30/18 23:32 98.5 F 89 18 111/61 96 DSM 5 Symptoms Update: shortly pt is a 28 year old male, whose past medical history includes polysubstance abuse and alcohol abuse, h/o substance induced mood disorder, self reported h/o ?ADHD, multiple ED/medical floor admissions, as well as psych admissions, h/o chronic noncompliance with f/u appts and medications, chronic resistance to go to inpatient rehab, pt also has h/[place] [facility] and h/o impulsive/suicidal behavior in the past. pt was on the medical site 10/27/18-10/30/18 for alcohol withdrawal syndrome, patient was discharged back home, patient came back to the hospital on 10/31/2018 reported that she want to hurt himself due to his constant chest pain for the past week, body aches, and alcohol withdrawals. pt is very familiar to the unit from multiple psych admissions, most recent was 10/12/2018 to 10/18/2018, since that time pt was in ED 3times. pt was discharged from the medial floor on 10/30/2018. Patient was seen today next to the nursing station, hygiene is better , presently patient was not demanding Ativan to be increased, pt is more receptive to counseling about alcohol cessation. patient reported that he was sleeping better, patient reported that he still feels depressed and mildly anxious, contracted for safety, no psychosis.living earlier today okay patient tolerated increased dose of trazodone very well.. ativan tapering dose. Patient denied any nausea or vomiting/diarrhea today. as per staff pt has medication seeking behavior, but in less extent. So far patient tolerates medications well, no side effects observed or reported, aims 0, no EPS. DSM 5 Diagnosis: r/o substance induced mood disorder r/o mdd alcohol use disorder Medication Change: Yes (ativan decreased) Medical Record Reviewed: Yes Mental Status Examination - Cognitive Function Orientation: Person, Place Memory: Intact Attention: Poor (Some improvement) Concentration: Poor (Some improvement) Association: WNL Fund of Knowledge: WNL - Mood Mood: Depressed (irritable), Anxious - Affect Affect: Constricted - Formal Thought Process Formal Thought Process: No Impairment - Suicidal Ideation Suicidal Ideation: No - Homicidal Ideation Homicidal Ideation: No Goal/Treatment Plan - Goal/Treatment Plan Need for Continued Stay: Remain at risks for inpatient hospitalization, Severe depression anxiety, Discharge may exacerbated symptoms, Failed transitioning, Severe functional impairment Progress Toward Problem(s) and Goals/Treatment Plan: Milieu/structure/supportive therapy Medical evaluation was done in ED, if pt will meet criteria, will call again SW consultation for discharge plan and social issues Med management Ativan as needed for alcohol withdrawal symptoms Multivitamins, thiamine, folic acid Trazodone 100 mg at the nighttime for insomnia and depression Prozac 30 mg twice a day for depression and anxiety Neurontin 300 mg 3 times a day for alcohol withdrawal symptoms as well as neuropathy Vistaril 50 mg 3 times a day as needed for anxiety Naltrexone treatment was discussed with the patient but patient expressed no interest zofran 4mg q8prn for nausea Family involvement Follow up on labs Will monitor closely Pt was educated about risk/benefits and alternatives of medications, coping strategies (safety plan, suicide prevention), relapse prevention, importance of follow up with psychiatrist and therapist, stay away from drugs/alcohol/smoking if pt would be d/c over the weekend, most likely pt might relapsed on alcohol and be readmitted on med side or psych unit. Estimated Date of D/C: 11/09/18
[2018-11-06] MEDS: Multivitamin With Minerals Tab PO SCH (08:19)
--- NOTE | 2018-11-06 08:49 | PCM.PYCHPN ---
Psychiatric Progress Note - Psychiatric Progress Note Patient seen today, length of contact: 30 minutes Problems Identified/Issues Discussed: I reviewed assessment and recent notes. I am familiar with this patient from interviews during prior presentions to ER, medical floor and psychiatric unit. Patient has a lot of difficulty abstaining from alcohol and this has led to multiple recurrent social, economic and relationship issues in this life. Presently he is being treated for depression, anxiety and alcohol withdrawal. He is alert, well-oriented and pleasant during my visit. He remembers me from prior interactions and range is full. He is feeling better since admission though still suffers from a lot of anxiety. Nonetheless tolerating the taper of ativan better than prior admissions. Denies perceptual disturbance or any new pain or discomfort. Patient has been bright and visible on the unit. He can communicate needs well. Patient has been compliant with medications without any behavioral issues however doesn't appear to be very motivated to stop drinking though understands need and consequences. Per Dr. Orellana's progress note, patient has deferred on naltrexone intervention. Diagnostic Results: r/o substance induced mood disorder r/o mdd alcohol use disorder Medication Change: Yes (ativan decreased) Medical Record Reviewed: Yes Mental Status Examination - Cognitive Function Orientation: Person, Place, Situation Memory: Intact Attention: WNL (Some improvement) Concentration: Poor (Some improvement) Association: WNL Fund of Knowledge: WNL - Mood Mood: Depressed (better), Anxious - Affect Affect: Constricted (good range) - Speech Speech: Appropriate - Formal Thought Process Formal Thought Process: No Impairment - Suicidal Ideation Suicidal Ideation: No - Homicidal Ideation Homicidal Ideation: No Goal/Treatment Plan - Goal/Treatment Plan Need for Continued Stay: Remain at risks for inpatient hospitalization, Severe depression anxiety, Discharge may exacerbated symptoms, Failed transitioning, Severe functional impairment Progress Toward Problem(s) and Goals/Treatment Plan: * c/w current tx and plan * Vitals reviewed and noted below: Selected Entries 11/05/18 11/05/18 07:23 16:00 Temperature 97.3 F L Pulse Rate 57 L 101 H Respiratory 18 Rate Blood Pressure 115/71 132/96 H Estimated Date of D/C: 11/09/18
[2018-11-07] MEDS: Multivitamin With Minerals Tab PO SCH (08:57)
--- NOTE | 2018-11-07 09:41 | PCM.PYCHPN ---
Psychiatric Progress Note - Psychiatric Progress Note Patient seen today, length of contact: 30 minutes Problems Identified/Issues Discussed: I reviewed recent notes. I am familiar with this patient from interviews during prior presentions to ER, medical floor and psychiatric unit. Patient has a lot of difficulty abstaining from alcohol and this has led to multiple recurrent social, economic and relationship issues in this life. Presently he is being treated for depression, anxiety and alcohol withdrawal. He is alert, well- oriented and pleasant during my visits. He remembers me from prior interactions and range is full. He is feeling better since admission though still suffers from a lot of anxiety. Nonetheless tolerating the taper of ativan better than prior admissions. Denies perceptual disturbance or any new pain or discomfort. Patient has been bright and visible on the unit. He can communicate needs well. Patient has been compliant with medications and behavior has been less intrusive. He still doesn't appear to be very motivated to stop drinking though understands need and consequences. Per Dr. Orellana's progress note, patient has deferred on naltrexone intervention. Diagnostic Results: r/o substance induced mood disorder r/o mdd alcohol use disorder Medication Change: No ( ) Medical Record Reviewed: Yes Mental Status Examination - Cognitive Function Orientation: Person, Place, Situation Memory: Intact Attention: WNL (Some improvement) Concentration: Poor (Some improvement) Association: WNL Fund of Knowledge: WNL - Mood Mood: Depressed (better), Anxious - Affect Affect: Constricted (good range) - Speech Speech: Appropriate - Formal Thought Process Formal Thought Process: No Impairment - Suicidal Ideation Suicidal Ideation: No - Homicidal Ideation Homicidal Ideation: No Goal/Treatment Plan - Goal/Treatment Plan Need for Continued Stay: Remain at risks for inpatient hospitalization, Severe depression anxiety, Discharge may exacerbated symptoms, Failed transitioning, Severe functional impairment Progress Toward Problem(s) and Goals/Treatment Plan: * c/w current tx and plan * Vitals reviewed and noted below: Selected Entries 11/06/18 11/06/18 07:00 15:00 Temperature 97.6 F Pulse Rate 52 L 86 Respiratory 20 Rate Blood Pressure 119/72 145/90 Estimated Date of D/C: 11/09/18
[2018-11-08] MEDS ORDERED: Alum-Mag Hydrox-Simethicone Susp (30 mL) PO PRN (00:32)
[2018-11-08] MEDS ORDERED: Magnesium Hydroxide Susp 30 ml UD PO PRN (00:32)
[2018-11-08] MEDS: Multivitamin With Minerals Tab PO SCH (09:32)
--- NOTE | 2018-11-08 10:11 | PCM.PYCHPN ---
Psychiatric Progress Note - Psychiatric Progress Note Patient seen today, length of contact: 30 minutes Problems Identified/Issues Discussed: I reviewed recent notes. I am familiar with this patient from interviews during prior presentions to ER, medical floor and psychiatric unit. Patient has a lot of difficulty abstaining from alcohol and this has led to multiple recurrent social, economic and relationship issues in this life. He also has a history of poor follow up after his discharges. Presently he is being treated for depression, anxiety and alcohol withdrawal. Patient remains alert, well-oriented and pleasant during my visits. He remembers me from prior interactions and range is full. He is feeling better since admission though still suffers from a lot of anxiety. Nonetheless tolerating the taper of ativan better than prior admissions. Denies perceptual disturbance or any new pain or discomfort. Patient has been bright and visible on the unit. He can communicate needs well. Patient has been compliant with medications and behavior has been less intrusive. He still doesn't appear to be very motivated to stop drinking though understands need and consequences. Per Dr. Orellana's progress note, patient has deferred on naltrexone intervention. Patient, however is interested in seeing this provider for outpatient treatment and spontaneously brings up this option multiple times during recent interviews. This is a step in the right direction in getting patient motivated and committed to c/w treatment in an outpatient setting and reducing his dependency on hospitalizations. Diagnostic Results: r/o substance induced mood disorder r/o mdd alcohol use disorder Medication Change: No ( ) Medical Record Reviewed: Yes Mental Status Examination - Cognitive Function Orientation: Person, Place, Situation Memory: Intact Attention: WNL (Some improvement) Concentration: Poor (Some improvement) Association: WNL Fund of Knowledge: WNL - Mood Mood: Depressed (better), Anxious - Affect Affect: Constricted (good range) - Speech Speech: Appropriate - Formal Thought Process Formal Thought Process: No Impairment - Suicidal Ideation Suicidal Ideation: No - Homicidal Ideation Homicidal Ideation: No Goal/Treatment Plan - Goal/Treatment Plan Need for Continued Stay: Remain at risks for inpatient hospitalization, Severe depression anxiety, Discharge may exacerbated symptoms, Failed transitioning, Severe functional impairment Progress Toward Problem(s) and Goals/Treatment Plan: * c/w current tx and plan * Vitals reviewed and noted below: Selected Entries 11/06/18 11/06/18 07:00 15:00 Temperature 97.6 F Pulse Rate 52 L 86 Respiratory 20 Rate Blood Pressure 119/72 145/90 * No new lab results over the weekend or today thus far. Discharge planned for tomorrow. Estimated Date of D/C: 11/09/18
[2018-11-09 06:56] VITALS: BP 104/55; PULSE 54; RESP 20; TEMP 97.6
[2018-11-09] MEDS: Multivitamin With Minerals Tab PO SCH (08:21)
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
== END 2018-11-09 12:31 | disposition home or self-care (01) | DRG 773 ==
LOC: ED 23:13 → ERH 10-31 07:54 → PSYC 10-31 09:23
PROVIDERS: ADMIT Psychologist; ATTEND Psychiatry & Neurology Psychiatry
DX: F10.239 Alcohol dependence with withdrawal, unspecified (principal); F11.20 Opioid dependence, uncomplicated; R45.851 Suicidal ideations; F12.90 Cannabis use, unspecified, uncomplicated; F17.210 Nicotine dependence, cigarettes, uncomplicated; F19.94 Other psychoactive substance use, unspecified with psychoactive substance-induced mood disorder; F31.9 Bipolar disorder, unspecified; F41.0 Panic disorder [episodic paroxysmal anxiety]; Z91.19 Patient's noncompliance with other medical treatment and regimen; G47.00 Insomnia, unspecified; G62.9 Polyneuropathy, unspecified; Z76.5 Malingerer [conscious simulation]; Z90.49 Acquired absence of other specified parts of digestive tract; F60.3 Borderline personality disorder; R11.2 Nausea with vomiting, unspecified; R19.7 Diarrhea, unspecified

== ENCOUNTER 2018-11-15 09:35 | Emergency (ER) | payer MEDICAID, OTHER ==
[2018-11-15 09:35] VITALS: BMI 30.2
[2018-11-15 09:56] VITALS: RESP 18
[2018-11-15] MEDS ORDERED: Sodium Chloride 0.9% 1,000 ML IV STA (10:13)
[2018-11-15] MEDS ORDERED: Multivitamin (MVI) 10 ML, Thiamine 100 MG, Folic Acid 1 MG in Sodium Chloride 0.9% 1,00... IV ONE (10:13)
--- NOTE | 2018-11-15 11:03 | RAD ---
Date of service: 11/15/2018 HISTORY: chest pain COMPARISON: 10/30/2018 FINDINGS: LUNGS: No active pulmonary disease. PLEURA: No significant pleural effusion identified, no pneumothorax apparent. CARDIOVASCULAR: No aortic atherosclerotic calcification present. Normal cardiac size. No pulmonary vascular congestion. OSSEOUS STRUCTURES: No significant abnormalities. VISUALIZED UPPER ABDOMEN: Normal. OTHER FINDINGS: None. IMPRESSION: No active disease.
[2018-11-15 11:58] LABS: URINE BILIRUBIN NEGATIVE (NEGATIVE); URINE BLOOD NEGATIVE (NEGATIVE); URINE GLUCOSE (UA) NEGATIVE (NEGATIVE); URINE LEUKOCYTE ESTERASE NEGATIVE Leu/uL (NEGATIVE); URINE PROTEIN NEGATIVE mg/dL (<30 mg/dL); URINE UROBILINOGEN 0.2 E.U./dL (<1 E.U./dL)
[2018-11-15 11:59] LABS: URINE APPEARANCE CLEAR (CLEAR); URINE COLOR LIGHT YELLOW (YELLOW)
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
[2018-11-15 12:30] LABS: BASO # 0.05 K/mm3 (0.0-2.0); BASO % 0.8 % (0.0-3.0); EOS # 0.1 (0.0-0.7); EOS % 1.9 % (1.5-5.0); GRAN # 3.09 (1.4-6.5); HEMOGLOBIN 14.6 g/dL (14.0-18.0); LYMPH # 2.9 (1.2-3.4); LYMPH % 45.3 % (22.0-35.0); MEAN CELL VOLUME 93.4 fl (80.0-105.0); MEAN CORPUSCULAR HEMOGLOBIN 31.1 pg (25.0-35.0); MEAN CORPUSCULAR HGB CONC 33.3 g/dl (31.0-37.0); MEAN PLATELET VOLUME 9.5 fl (7.0-11.0); MONO # 0.3 (0.1-0.6); RBC 4.69 10^6/uL (3.5-6.1); RED CELL DISTRIBUTION WIDTH 13.7 % (11.5-14.5); WHITE BLOOD COUNT 6.4 10^3/uL (4.5-11.0)
[2018-11-15 12:45] LABS: ALB/GLOB RATIO 1.3 (1.1-1.8); ALBUMIN 4.5 g/dL (3.0-4.8); ALT/SGPT 122 U/L (7-56); AST/SGOT 69 U/L (17-59); BLOOD UREA NITROGEN 18 mg/dL (7-21); GFR NON-AFRICAN AMERICAN > 60
[2018-11-15 12:54] LABS: TROPONIN I < 0.01 ng/mL
--- NOTE | 2018-11-15 12:58 | CT ---
Date of service: 11/15/2018 PROCEDURE: CT HEAD WITHOUT CONTRAST. HISTORY: fall COMPARISON: 10/11/2018 TECHNIQUE: Axial computed tomography images were obtained through the head/brain without intravenous contrast. Radiation dose: Total exam DLP = 962.51 mGy-cm. This CT exam was performed using one or more of the following dose reduction techniques: Automated exposure control, adjustment of the mA and/or kV according to patient size, and/or use of iterative reconstruction technique. FINDINGS: HEMORRHAGE: No intracranial hemorrhage. BRAIN: No mass effect or edema. No atrophy or chronic microvascular ischemic changes. VENTRICLES: Unremarkable. No hydrocephalus. CALVARIUM: Unremarkable. PARANASAL SINUSES: Unremarkable as visualized. No significant inflammatory changes. MASTOID AIR CELLS: Unremarkable as visualized. No inflammatory changes. OTHER FINDINGS: None. IMPRESSION: Normal CT of the Head.
[2018-11-15 13:28] VITALS: TEMP 98.4
--- NOTE | 2018-11-15 16:53 | CARD ---
APPROVED REPORT Date of service: 11/15/2018 EKG Measurement Heart [id number] <Conclusion> Normal sinus rhythm Normal Electrocardiogram
[2018-11-15 17:00] VITALS: BP 108/74; PULSE 90; O2SAT 98
== END 2018-11-15 17:00 | disposition home or self-care (01) ==
LOC: ED 09:35
DX: F41.9 Anxiety disorder, unspecified (principal); W19.XXXA Unspecified fall, initial encounter; Y92.531 Health care provider office as the place of occurrence of the external cause; F14.10 Cocaine abuse, uncomplicated; F12.10 Cannabis abuse, uncomplicated; F17.210 Nicotine dependence, cigarettes, uncomplicated
CPT/HCPCS: 70450; 71045; 80053; 81003; 82550; 83615; 84484; 85025; 93005; 96365; 96375; 99283; J2060; J3411; J7030

== ENCOUNTER 2018-11-16 18:54 | Observation (INO) | payer MEDICAID, OTHER ==
[2018-11-16 19:06] VITALS: BMI 29.7
[2018-11-16] MEDS ORDERED: Folic Acid 1 MG, Thiamine 100 MG, Multivitamin (MVI) 10 ML in Dextrose 5% In Water 1,00... IV SCH (20:00)
[2018-11-16 20:03] LABS: HEMOGLOBIN 15.2 g/dL (14.0-18.0); MEAN CELL VOLUME 93.2 fl (80.0-105.0); MEAN CORPUSCULAR HEMOGLOBIN 31.4 pg (25.0-35.0); MEAN CORPUSCULAR HGB CONC 33.7 g/dl (31.0-37.0); MEAN PLATELET VOLUME 10.1 fl (7.0-11.0); RBC 4.84 10^6/uL (3.5-6.1); RED CELL DISTRIBUTION WIDTH 13.5 % (11.5-14.5); WHITE BLOOD COUNT 9.2 10^3/uL (4.5-11.0)
[2018-11-16 20:09] LABS: INR 0.91; PARTIAL THROMBOPLASTIN TIME 28.4 Seconds (25.1-36.5); PROTHROMBIN TIME 10.4 SECONDS (9.4-12.5)
[2018-11-16 20:14] LABS: ALB/GLOB RATIO 1.4 (1.1-1.8); ALBUMIN 4.8 g/dL (3.0-4.8); ALT/SGPT 103 U/L (7-56); AST/SGOT 81 U/L (17-59); BLOOD UREA NITROGEN 17 mg/dL (7-21); CALCIUM 9.2 mg/dL (8.4-10.5); GFR NON-AFRICAN AMERICAN > 60
[2018-11-16 20:24] LABS: TROPONIN I < 0.01 ng/mL
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
[2018-11-17 06:03] LABS: BARBITURATES, UR NEGATIVE (NEGATIVE); BENZODIAZEPINES, UR POSITIVE (NEGATIVE); OPIATES, UR NEGATIVE (NEGATIVE); PHENCYCLIDINE, UR NEGATIVE (NEGATIVE)
[2018-11-17 06:32] LABS: BASO # 0.04 K/mm3 (0.0-2.0); BASO % 0.5 % (0.0-3.0); EOS # 0.2 (0.0-0.7); GRAN # 4.46 (1.4-6.5); GRAN % 58.5 % (50.0-68.0); LYMPH # 2.7 (1.2-3.4); LYMPH % 34.7 % (22.0-35.0); MEAN CELL VOLUME 93.6 fl (80.0-105.0); MEAN CORPUSCULAR HGB CONC 33.2 g/dl (31.0-37.0); MEAN PLATELET VOLUME 9.7 fl (7.0-11.0); MONO # 0.3 (0.1-0.6); MONO % 4.3 % (1.0-6.0); RBC 4.51 10^6/uL (3.5-6.1); RED CELL DISTRIBUTION WIDTH 13.8 % (11.5-14.5); WHITE BLOOD COUNT 7.6 10^3/uL (4.5-11.0)
[2018-11-17 07:06] LABS: ALB/GLOB RATIO 1.5 (1.1-1.8); ALBUMIN 4.3 g/dL (3.0-4.8); ALT/SGPT 95 U/L (7-56); AST/SGOT 77 U/L (17-59); BLOOD UREA NITROGEN 17 mg/dL (7-21); GFR NON-AFRICAN AMERICAN > 60
[2018-11-17 07:42] VITALS: O2SAT 97
[2018-11-17] MEDS: Multivitamin With Minerals Tab PO SCH (08:40)
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
[2018-11-17 12:03] VITALS: RESP 18
--- NOTE | 2018-11-17 18:29 | CARD ---
APPROVED REPORT Date of service: 11/16/2018 EKG Measurement Heart [id number] MA [id number] <Conclusion> Normal sinus rhythm Incomplete right bundle branch block Borderline ECG
[2018-11-18 06:45] LABS: BASO # 0.03 K/mm3 (0.0-2.0); BASO % 0.5 % (0.0-3.0); EOS # 0.2 (0.0-0.7); EOS % 3.5 % (1.5-5.0); GRAN # 3.47 (1.4-6.5); GRAN % 52.8 % (50.0-68.0); HEMOGLOBIN 13.5 g/dL (14.0-18.0); LYMPH # 2.5 (1.2-3.4); MEAN CELL VOLUME 93.4 fl (80.0-105.0); MEAN CORPUSCULAR HEMOGLOBIN 30.9 pg (25.0-35.0); MEAN CORPUSCULAR HGB CONC 33.1 g/dl (31.0-37.0); MEAN PLATELET VOLUME 10.2 fl (7.0-11.0); MONO # 0.3 (0.1-0.6); MONO % 5.2 % (1.0-6.0); RBC 4.37 10^6/uL (3.5-6.1); RED CELL DISTRIBUTION WIDTH 13.4 % (11.5-14.5); WHITE BLOOD COUNT 6.6 10^3/uL (4.5-11.0)
[2018-11-18 07:00] LABS: ALB/GLOB RATIO 1.4 (1.1-1.8); ALBUMIN 4.2 g/dL (3.0-4.8); ALT/SGPT 89 U/L (7-56); AST/SGOT 74 U/L (17-59); BLOOD UREA NITROGEN 17 mg/dL (7-21); CALCIUM 9.4 mg/dL (8.4-10.5); GFR NON-AFRICAN AMERICAN > 60
[2018-11-18] MEDS ORDERED: Pantoprazole 40 mg EC Tab PO SCH (07:30)
[2018-11-18] MEDS: Multivitamin With Minerals Tab PO SCH (08:09)
[2018-11-18 12:06] VITALS: BP 130/81; PULSE 70; TEMP 98
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
--- NOTE | 2018-11-18 16:26 | CP.PCM.DIS ---
<Marcus Odonnellron - Last Filed: 11/18/18 16:23> Provider - Provider Date of Admission: 11/17/18 00:00 Attending physician: Alejandro Xiong MD Consults: 11/18/18 09:58 Consult [Physician Consult] Routine Comment: Consulting Provider: Matheus Mena Consulting Physician: Matheus Mena Reason for Consult: alcohol withdrawal seizures Time Spent in preparation of Discharge (in minutes): 35 Diagnosis - Discharge Diagnosis (1) Alcohol abuse Status: Chronic Priority: High (2) Alcohol intoxication Status: Acute Priority: High (3) Anxiety Status: Chronic Priority: High (4) Depression Status: Chronic Priority: High Hospital Course - Lab Results Lab Results: Most Recent Lab Values WBC 6.6 10^3/uL (4.5-11.0) 11/18/18 06:00 RBC 4.37 10^6/uL (3.5-6.1) 11/18/18 06:00 Hgb 13.5 g/dL (14.0-18.0) L 11/18/18 06:00 Hct 40.8 % (42.0-52.0) L 11/18/18 06:00 MCV 93.4 fl (80.0-105.0) 11/18/18 06:00 MCH 30.9 pg (25.0-35.0) 11/18/18 06:00 MCHC 33.1 g/dl (31.0-37.0) 11/18/18 06:00 RDW 13.4 % (11.5-14.5) 11/18/18 06:00 Plt Count 215 10^3/uL (120.0-450.0) 11/18/18 06:00 MPV 10.2 fl (7.0-11.0) 11/18/18 06:00 Gran % 52.8 % (50.0-68.0) 11/18/18 06:00 Lymph % (Auto) 38.0 % (22.0-35.0) H 11/18/18 06:00 Terry % (Auto) 5.2 % (1.0-6.0) 11/18/18 06:00 Eos % (Auto) 3.5 % (1.5-5.0) 11/18/18 06:00 Baso % (Auto) 0.5 % (0.0-3.0) 11/18/18 06:00 Gran # 3.47 (1.4-6.5) 11/18/18 06:00 Lymph # (Auto) 2.5 (1.2-3.4) 11/18/18 06:00 Terry # (Auto) 0.3 (0.1-0.6) 11/18/18 06:00 Eos # (Auto) 0.2 (0.0-0.7) 11/18/18 06:00 Baso # (Auto) 0.03 K/mm3 (0.0-2.0) 11/18/18 06:00 PT 10.4 SECONDS (9.4-12.5) 11/16/18 18:50 INR 0.91 11/16/18 18:50 APTT 28.4 Seconds (25.1-36.5) 11/16/18 18:50 Sodium 139 mmol/L (132-148) 11/18/18 06:00 Potassium 3.6 mmol/L (3.6-5.0) 11/18/18 06:00 Chloride 104 mmol/L (98-107) 11/18/18 06:00 Carbon Dioxide 26 mmol/L (21-33) 11/18/18 06:00 Anion Gap 12 (10-20) 11/18/18 06:00 BUN 17 mg/dL (7-21) 11/18/18 06:00 Creatinine 1.0 mg/dl (0.8-1.5) 11/18/18 06:00 Est GFR ( Amer) > 60 11/18/18 06:00 Est GFR (Non-Af Amer) > 60 11/18/18 06:00 Random Glucose 97 mg/dL (70-110) 11/18/18 06:00 Calcium 9.4 mg/dL (8.4-10.5) 11/18/18 06:00 Magnesium 2.0 mg/dL (1.7-2.2) 11/17/18 06:00 Total Bilirubin 1.1 mg/dL (0.2-1.3) 11/18/18 06:00 AST 74 U/L (17-59) H 11/18/18 06:00 ALT 89 U/L (7-56) H 11/18/18 06:00 Alkaline Phosphatase 89 U/L (38-126) 11/18/18 06:00 Lactate Dehydrogenase 591 U/L (333-699) 11/16/18 18:50 Total Creatine Kinase 216 U/L (35-230) 11/16/18 18:50 Troponin I < 0.01 ng/mL 11/16/18 18:50 Total Protein 7.3 g/dL (5.8-8.3) 11/18/18 06:00 Albumin 4.2 g/dL (3.0-4.8) 11/18/18 06:00 Globulin 3.0 gm/dL 11/18/18 06:00 Albumin/Globulin Ratio 1.4 (1.1-1.8) 11/18/18 06:00 Urine Opiates Screen Negative (NEGATIVE) 11/17/18 04:30 Urine Methadone Screen Negative (NEGATIVE) 11/17/18 04:30 Ur Barbiturates Screen Negative (NEGATIVE) 11/17/18 04:30 Ur Phencyclidine Scrn Negative (NEGATIVE) 11/17/18 04:30 Ur Amphetamines Screen Negative (NEGATIVE) 11/17/18 04:30 U Benzodiazepines Scrn Positive (NEGATIVE) H 11/17/18 04:30 U Oth Cocaine Metabols Negative (NEGATIVE) 11/17/18 04:30 U Cannabinoids Screen Negative (NEGATIVE) 11/17/18 04:30 Alcohol, Quantitative 273 mg/dL (0-10) H 11/16/18 18:50 - Hospital Course Hospital Course: Arrival Upon Pt is a 28M with a H polysubstance abuse (including benzodiazepines, heroin, cocaine and marijuana), alcohol abuse and tobacco use disorder, multiple admissions for substance abuse/ non compliance who presented [place] [facility] [place] (after being recently discharged from [facility] on 11/09) for alcohol withdrawl, and convulsions. Upon evaluation patient is somnolent and appears to be intoxicated w/ strong odor EtOH. He stated he had no memory of events between 1100 and EMS arrival however he reports he had a seizure which was witnessed by EMS. Patient also reports he has a history of seizures 2/2 EtOH withdrawal. Patient reported when he begins to withdraw he experiences palpitations, SOB. Hospitalization Pt was treated for EtOH withdrawal during his admission. Pt EtOH Level was 230s upon admission. Pt was treated with Ativan, Thiamine, Folic, and Multivit. He was placed on seizure precautions. CT head was negative for acute intracranial pathology. Discharge Pt advisded to please follow up with your primary care physician within 3-5 days of discharge. Please follow up with Dr. Mi at [facility] tomorrow (Thursday) November 19, 2018 at 7:30AM for medication refills. Pt advised to please follow up with neurology, Dr. Mena, within 1 week of discharge. Pt advised to stop drinking alcohol because this can cause seizures. Continue home medication as prescribed. If your symptoms worsen, please go to the nearest emergency department. - Date & Time of H&P Date of H&P: 11/18/18 Time of H&P: 07:00 Discharge Exam - Head Exam Head Exam: ATRAUMATIC, NORMOCEPHALIC - Eye Exam Eye Exam: EOMI Pupil Exam: PERRL - Respiratory Exam Respiratory Exam: NORMAL BREATHING PATTERN. absent: Accessory Muscle Use, Respiratory Distress - Cardiovascular Exam Cardiovascular Exam: RRR, +S1, +S2. absent: Diastolic murmur, Systolic Murmur - GI/Abdominal Exam GI & Abdominal Exam: Normal Bowel Sounds, Soft, Unremarkable. absent: Tenderness - Extremities Exam Extremities exam: full ROM, pedal pulses present - Neurological Exam Neurological exam: Alert, Oriented x3 - Psychiatric Exam Psychiatric exam: Normal Affect, Normal Mood - Skin Skin Exam: Dry, Intact, Warm Discharge Plan - Follow Up Plan Condition: STABLE Disposition: HOME/ ROUTINE Instructions: Alcohol Withdrawal (DC) Additional Instructions: Please follow up with your primary care physician within 3-5 days of discharge. Please follow up with Dr. Mi at [facility] tomorrow (Thursday) November 19, 2018 at 7:30AM for medication refills. Please follow up with neurology, Dr. Mena, within 1 week of discharge. STOP DRINKING ALCOHOL. This can cause seizures. Continue home medication as prescribed. If your symptoms worsen, please go to the nearest emergency department. Referrals: [facility] [Outside] Matheus Mena MD [Staff Provider] - Elisabeth Mi MD [Staff Provider] - <Alejandro Xiong - Last Filed: 11/19/18 15:33> Provider - Provider Date of Admission: 11/17/18 00:00 Attending physician: Alejandro Xiong MD Consults: 11/18/18 09:58 Consult [Physician Consult] Routine Comment: Consulting Provider: Matheus Mena Consulting Physician: Matheus Mena Reason for Consult: alcohol withdrawal seizures Hospital Course - Lab Results Lab Results: Most Recent Lab Values WBC 6.6 10^3/uL (4.5-11.0) 11/18/18 06:00 RBC 4.37 10^6/uL (3.5-6.1) 11/18/18 06:00 Hgb 13.5 g/dL (14.0-18.0) L 11/18/18 06:00 Hct 40.8 % (42.0-52.0) L 11/18/18 06:00 MCV 93.4 fl (80.0-105.0) 11/18/18 06:00 MCH 30.9 pg (25.0-35.0) 11/18/18 06:00 MCHC 33.1 g/dl (31.0-37.0) 11/18/18 06:00 RDW 13.4 % (11.5-14.5) 11/18/18 06:00 Plt Count 215 10^3/uL (120.0-450.0) 11/18/18 06:00 MPV 10.2 fl (7.0-11.0) 11/18/18 06:00 Gran % 52.8 % (50.0-68.0) 11/18/18 06:00 Lymph % (Auto) 38.0 % (22.0-35.0) H 11/18/18 06:00 Terry % (Auto) 5.2 % (1.0-6.0) 11/18/18 06:00 Eos % (Auto) 3.5 % (1.5-5.0) 11/18/18 06:00 Baso % (Auto) 0.5 % (0.0-3.0) 11/18/18 06:00 Gran # 3.47 (1.4-6.5) 11/18/18 06:00 Lymph # (Auto) 2.5 (1.2-3.4) 11/18/18 06:00 Terry # (Auto) 0.3 (0.1-0.6) 11/18/18 06:00 Eos # (Auto) 0.2 (0.0-0.7) 11/18/18 06:00 Baso # (Auto) 0.03 K/mm3 (0.0-2.0) 11/18/18 06:00 PT 10.4 SECONDS (9.4-12.5) 11/16/18 18:50 INR 0.91 11/16/18 18:50 APTT 28.4 Seconds (25.1-36.5) 11/16/18 18:50 Sodium 139 mmol/L (132-148) 11/18/18 06:00 Potassium 3.6 mmol/L (3.6-5.0) 11/18/18 06:00 Chloride 104 mmol/L (98-107) 11/18/18 06:00 Carbon Dioxide 26 mmol/L (21-33) 11/18/18 06:00 Anion Gap 12 (10-20) 11/18/18 06:00 BUN 17 mg/dL (7-21) 11/18/18 06:00 Creatinine 1.0 mg/dl (0.8-1.5) 11/18/18 06:00 Est GFR ( Amer) > 60 11/18/18 06:00 Est GFR (Non-Af Amer) > 60 11/18/18 06:00 Random Glucose 97 mg/dL (70-110) 11/18/18 06:00 Calcium 9.4 mg/dL (8.4-10.5) 11/18/18 06:00 Magnesium 2.0 mg/dL (1.7-2.2) 11/17/18 06:00 Total Bilirubin 1.1 mg/dL (0.2-1.3) 11/18/18 06:00 AST 74 U/L (17-59) H 11/18/18 06:00 ALT 89 U/L (7-56) H 11/18/18 06:00 Alkaline Phosphatase 89 U/L (38-126) 11/18/18 06:00 Lactate Dehydrogenase 591 U/L (333-699) 11/16/18 18:50 Total Creatine Kinase 216 U/L (35-230) 11/16/18 18:50 Troponin I < 0.01 ng/mL 11/16/18 18:50 Total Protein 7.3 g/dL (5.8-8.3) 11/18/18 06:00 Albumin 4.2 g/dL (3.0-4.8) 11/18/18 06:00 Globulin 3.0 gm/dL 11/18/18 06:00 Albumin/Globulin Ratio 1.4 (1.1-1.8) 11/18/18 06:00 Urine Opiates Screen Negative (NEGATIVE) 11/17/18 04:30 Urine Methadone Screen Negative (NEGATIVE) 11/17/18 04:30 Ur Barbiturates Screen Negative (NEGATIVE) 11/17/18 04:30 Ur Phencyclidine Scrn Negative (NEGATIVE) 11/17/18 04:30 Ur Amphetamines Screen Negative (NEGATIVE) 11/17/18 04:30 U Benzodiazepines Scrn Positive (NEGATIVE) H 11/17/18 04:30 U Oth Cocaine Metabols Negative (NEGATIVE) 11/17/18 04:30 U Cannabinoids Screen Negative (NEGATIVE) 11/17/18 04:30 Alcohol, Quantitative 273 mg/dL (0-10) H 11/16/18 18:50 Attending/Attestation - Attestation I have personally seen and examined this patient.: Yes I have fully participated in the care of the patient.: Yes I have reviewed all pertinent clinical information, including history, physical exam and plan: Yes Notes (Text): 11/18/18 17:19 attending note; Patient seen and examined with resident. Patient is a 28 year old male with past medical history of substance and alcohol abuse who is admitted for alcohol withdrawal. He was started on multivitamin, folic acid and thiamine. Currently CIWA is improved. no tachycardia or agitaion. Benzo dependency; patient is asking for increasing dose of benzodiazepine. Case discussed with patient's psychiatrist in detail. Patient will be discharged today. Appointments made by us to see Dr. Mi tomorrow. as per Patient he has outpatient appointment with [facility] for alcohol and drug rehabilitation. Neurology evaluation appreciated. No need for any medications now. Complete alcohol cessation recommended. Counselled on alcohol abstinence. Counselled on risks of continued substance abuse. Prognosis is poor secondary to continue his alcohol abuse , drug abuse , social situation and noncompliance with follow-up. community outreach worker evaluation appreciated. Patient was educated multiple times to follow-up with outpatient drug and alcohol rehabilitation. Noncompliance with follow-up. Patient is also moving from place to place to make it difficult to follow up with PMD.
== END 2018-11-18 14:27 | disposition home or self-care (01) ==
LOC: ED 18:54 → ERH 11-17 → 2RNO 11-17 03:11
PROVIDERS: ADMIT Hospitalist; ATTEND Internal Medicine
DX: F10.229 Alcohol dependence with intoxication, unspecified (principal); F10.239 Alcohol dependence with withdrawal, unspecified; Y90.8 Blood alcohol level of 240 mg/100 ml or more; F17.210 Nicotine dependence, cigarettes, uncomplicated; F31.9 Bipolar disorder, unspecified; F41.9 Anxiety disorder, unspecified; F12.10 Cannabis abuse, uncomplicated; F14.10 Cocaine abuse, uncomplicated; F11.10 Opioid abuse, uncomplicated; F13.10 Sedative, hypnotic or anxiolytic abuse, uncomplicated; R56.9 Unspecified convulsions; Z91.19 Patient's noncompliance with other medical treatment and regimen

== ENCOUNTER 2018-11-19 13:32 | Emergency (ER) | payer OTHER, MEDICAID ==
[2018-11-19 13:32] VITALS: BMI 29.7
[2018-11-19 14:29] VITALS: RESP 18
[2018-11-19 14:34] LABS: BASO # 0.04 K/mm3 (0.0-2.0); BASO % 0.4 % (0.0-3.0); EOS # 0.2 (0.0-0.7); EOS % 1.7 % (1.5-5.0); GRAN # 6.38 (1.4-6.5); GRAN % 63.9 % (50.0-68.0); HEMOGLOBIN 14.4 g/dL (14.0-18.0); LYMPH % 29.9 % (22.0-35.0); MEAN CELL VOLUME 93.9 fl (80.0-105.0); MEAN CORPUSCULAR HEMOGLOBIN 31.3 pg (25.0-35.0); MEAN CORPUSCULAR HGB CONC 33.3 g/dl (31.0-37.0); MEAN PLATELET VOLUME 9.8 fl (7.0-11.0); MONO # 0.4 (0.1-0.6); MONO % 4.1 % (1.0-6.0); RBC 4.6 10^6/uL (3.5-6.1); RED CELL DISTRIBUTION WIDTH 13.6 % (11.5-14.5); URINE BILIRUBIN NEGATIVE (NEGATIVE); URINE BLOOD NEGATIVE (NEGATIVE); URINE GLUCOSE (UA) NEGATIVE (NEGATIVE); URINE LEUKOCYTE ESTERASE NEGATIVE Leu/uL (NEGATIVE); URINE PROTEIN NEGATIVE mg/dL (<30 mg/dL); URINE UROBILINOGEN 0.2 E.U./dL (<1 E.U./dL)
[2018-11-19 14:40] LABS: URINE APPEARANCE CLEAR (CLEAR); URINE COLOR YELLOW (YELLOW)
[2018-11-19 14:42] LABS: ACETAMINOPHEN < 10.0 ug/ml (10.0-20.0); SALICYLATE < 1 mg/dL (2.0-20.0)
--- NOTE | 2018-11-19 15:07 | CT ---
Date of service: 11/19/2018 PROCEDURE: CT HEAD WITHOUT CONTRAST. HISTORY: fall etoh COMPARISON: 11/17/2018 TECHNIQUE: Axial computed tomography images were obtained through the head/brain without intravenous contrast. Radiation dose: Total exam DLP = 1032.5 mGy-cm. This CT exam was performed using one or more of the following dose reduction techniques: Automated exposure control, adjustment of the mA and/or kV according to patient size, and/or use of iterative reconstruction technique. FINDINGS: HEMORRHAGE: No intracranial hemorrhage. BRAIN: No mass effect or edema. No atrophy or chronic microvascular ischemic changes. VENTRICLES: Unremarkable. No hydrocephalus. CALVARIUM: Unremarkable. PARANASAL SINUSES: Unremarkable as visualized. No significant inflammatory changes. MASTOID AIR CELLS: Unremarkable as visualized. No inflammatory changes. OTHER FINDINGS: None. IMPRESSION: No acute findings
--- NOTE | 2018-11-19 15:11 | RAD ---
PROCEDURE: Right Knee Radiographs, two views. HISTORY: knee pain COMPARISON: None available. FINDINGS: BONES: No acute displaced fracture. JOINTS: No dislocation. JOINT EFFUSION: No significant joint effusion. OTHER FINDINGS: None. IMPRESSION: No acute displaced fracture, dislocation, or significant joint effusion identified. If symptoms persist, or if there is continued clinical concern, x-ray follow-up in 7-10 days should be considered.
[2018-11-19 15:18] LABS: ALB/GLOB RATIO 1.5 (1.1-1.8); ALBUMIN 4.7 g/dL (3.0-4.8); ALT/SGPT 98 U/L (7-56); AST/SGOT 84 U/L (17-59); BARBITURATES, UR NEGATIVE (NEGATIVE); BENZODIAZEPINES, UR POSITIVE (NEGATIVE); BLOOD UREA NITROGEN 11 mg/dL (7-21); CALCIUM 9.3 mg/dL (8.4-10.5); GFR NON-AFRICAN AMERICAN > 60; OPIATES, UR NEGATIVE (NEGATIVE); PHENCYCLIDINE, UR NEGATIVE (NEGATIVE)
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
[2018-11-19] MEDS ORDERED: TDAP Vaccine 0.5 mL Syr IM ONE (17:54)
[2018-11-19 18:40] VITALS: TEMP 98.4
[2018-11-19] MEDS ORDERED: Bacitracin 500 Units/gm Oint Foilpak UD ONE (18:49)
[2018-11-19] MEDS ORDERED: Bacitracin 500 Units/gm Oint Foilpak UD TOP ONE (19:00)
--- NOTE | 2018-11-19 19:51 | CARD ---
APPROVED REPORT Date of service: 11/19/2018 EKG Measurement Heart [id number] <Conclusion> Normal sinus rhythm Normal ECG
[2018-11-19 21:12] VITALS: BP 115/68; PULSE 75; O2SAT 99
== END 2018-11-19 20:10 | disposition home or self-care (01) ==
LOC: ED 13:32
DX: Z72.89 Other problems related to lifestyle (principal); F17.210 Nicotine dependence, cigarettes, uncomplicated; Z23 Encounter for immunization
CPT/HCPCS: 70450; 73560; 80053; 80324; 80329; 80345; 80346; 80349; 80353; 80358; 80361; 81003; 83992; 85025; 90471; 90715; 93005; 96374; 96376; 99284; J2060

== ENCOUNTER 2018-11-20 00:26 | Emergency (ER) | payer MEDICAID, OTHER ==
[2018-11-20 00:27] VITALS: BMI 29.7
== END 2018-11-20 00:50 | disposition left against medical advice (07) ==
LOC: ED 00:26
DX: Z02.89 Encounter for other administrative examinations (principal); Z00.00 Encounter for general adult medical examination without abnormal findings

== ENCOUNTER 2018-11-28 22:47 | Inpatient (IN) | payer MEDICAID, OTHER ==
--- NOTE | 2018-11-28 22:54 | ED PDOC ---
Arrival/HPI - General Chief Complaint: Psychiatric Evaluation Time Seen by Provider: 11/28/18 23:55 Historian: Patient - History of Present Illness Narrative History of Present Illness (Text): Chidi Hopper is a 28 year old male, whose past medical history includes alcohol abuse, bipolar disorder, depression, anxiety, who presents to the Emergency department for evaluation of suicidal ideation, possible pill ingestion. Patient was recently at [facility] and discharged yesterday after evaluation of suicidal attempt that occurred 3 days ago. Patient states he slit his left wrist horizontally and underwent emergent surgical repair at [facility], sutures intact today. Patient reports taking 2 tabs Oxycodone and 1 tab 0.5mg Ativan HELICOPTER PILOT to " numb the pain." Patient states he has thoughts of killing himself but denies any homicidal ideation or hallucinations. Patient's sister reports he may have taken more pills then he states. Patient is complaining of left arm pain over healing laceration with SOB and dizziness intermittently since his surgery. Admits to drinking a pint of vodka today. Patient denies any fever, chills, shortness of b reath, nausea, vomiting, diarrhea, urinary symptoms, back pain, neck pain, headache, dizziness, or any other complaints. Symptom Onset: Gradual Symptom Course: Unchanged Activities at Onset: Emotional Upset Context: Home Past Medical History - Provider Review Nursing Documentation Reviewed: Yes - Past History Past History: No Previous (alcohol dependent) - Infectious Disease Hx of Infectious Diseases: None - Tetanus Immunization Tetanus Immunization: Unknown - Past Medical History Past Medical History: No Previous - Cardiac Hx Cardiac Disorders: Yes (chest pain) - Pulmonary Hx Respiratory Disorders: Yes (SMOKES CIGARETTES PPD/TRIES QUITTING.ON NICOTINE PATCHES 24) - Neurological Hx Neurological Disorder: Yes Hx Seizures: Yes - HEENT Hx HEENT Disorder: Yes - Renal Hx Renal Disorder: No - Endocrine/Metabolic Hx Endocrine Disorders: No - Hematological/Oncological Hx Blood Disorders: No - Integumentary Hx Dermatological Disorder: Yes (hx impetigo age 17, genital warts) - Musculoskeletal/Rheumatological Hx Musculoskeletal Disorders: Yes Hx Falls: Yes (past) - Gastrointestinal Hx Gastrointestinal Disorders: Yes (gastritis) - Genitourinary/Gynecological Hx Genitourinary Disorders: No - Psychiatric Hx Psychophysiologic Disorder: Yes Hx Bipolar Disorder: Yes Hx Depression: Yes Hx Substance Use: Yes - Past Surgical History Past Surgical History: No Previous - Surgical History Hx Appendectomy: Yes (perforation) Other/Comment: reconstructive sx right arm due to trauma from jumping over a fence age 24/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12/ - Anesthesia Hx Anesthesia: Yes Hx Anesthesia Reactions: No Hx Malignant Hyperthermia: No - Suicidal Assessment Feels Threatened In Home Enviroment: No Family/Social History - Physician Review Nursing Documentation Reviewed: Yes Family/Social History: Unknown Family HX Smoking Status: Heavy Smoker > 10 Cigarettes Daily Hx Alcohol Use: Yes Hx Substance Use: Yes Substance used: marijuana; ecstasy; ativan Hx Substance Use Treatment: No Allergies/Home Meds Allergies/Adverse Reactions: Allergies No Known Allergies Allergy (Verified 11/28/18 22:56) Home Medications: Home Meds Medication Instructions Recorded Confirmed Fluoxetine HCl [Prozac] 60 mg PO DAILY 10/28/18 10/31/18 hydrOXYzine Pamoate [Vistaril] 50 mg PO TID PRN 10/28/18 11/29/18 Review of Systems - Physician Review All systems were reviewed & negative as marked: Yes - Review of Systems Constitutional: Normal. absent: Fevers Eyes: Normal. absent: Vision Changes ENT: Normal. absent: Sore Throat, Sinus Congestion Respiratory: SOB. absent: Cough Cardiovascular: Other (lightheadedness). absent: Chest Pain, Palpitations, Syncope Gastrointestinal: Normal. absent: Abdominal Pain, Diarrhea, Nausea, Vomiting Genitourinary Male: Normal. absent: Dysuria, Frequency, Hematuria, Urinary Output Changes Musculoskeletal: Other (left arm pain). absent: Back Pain, Neck Pain Skin: Laceration (healing left arm) Neurological: Dizziness. absent: Headache Endocrine: Normal Hemo/Lymphatic: Normal Psychiatric: Anxiety, Depression, Suicidal Ideation Physical Exam Vital Signs Reviewed: Yes Temperature: Afebrile Blood Pressure: Normal Pulse: Regular Respiratory Rate: Normal Appearance: Positive for: Non-Toxic, Comfortable, Other (Pale) Pain Distress: None Mental Status: Positive for: Alert and Oriented X 3 - Systems Exam Head: Present: Atraumatic, Normocephalic Pupils: Present: PERRL Extroacular Muscles: Present: EOMI Conjunctiva: Present: Normal Mouth: Present: Moist Mucous Membranes Neck: Present: Normal Range of Motion Respiratory/Chest: Present: Clear to Auscultation, Good Air Exchange. No: Respiratory Distress, Accessory Muscle Use Cardiovascular: Present: Regular Rate and Rhythm, Normal S1, S2. No: Murmurs Abdomen: Present: Normal Bowel Sounds. No: Tenderness, Distention, Peritoneal Signs, Rebound, Guarding Rectal: Present: Normal Rectal Tone. No: Occult Blood, Rectal Tenderness, Gross Blood Back: Present: Normal Inspection. No: CVA Tenderness, Midline Tenderness, Paraspinal Tenderness Upper Extremity: Present: Normal ROM, NORMAL PULSES, Tenderness (over healing laceration), Neurovascularly Intact, Capillary Refill < 2s, Other (10 cm laceration/incision to left volar mid-forearm, 7 sutures intact, no signs of infection, no redness; small amount of serosanguineous discharge). No: Cyanosis, Edema, Swelling, Erythema, Temperature Abnormalties, Deformity Lower Extremity: Present: Normal Inspection, NORMAL PULSES, Normal ROM, Neurovascularly Intact, Capillary Refill < 2 s. No: Edema Neurological: Present: GCS=15, CN II-XII Intact, Speech Normal, Motor Func Grossly Intact, Normal Sensory Function, Gait Normal Skin: Present: Warm, Dry, Pale. No: Rashes Psychiatric: Present: Alert, Oriented x 3, Anxious, Suicidal Ideation Medical Decision Making ED Course and Treatment: 11/28/18 23:25 Impression: 28 year old male complaining of depression and suicidal ideation, possible overdose. Plan: -- EKG -- Chest X-ray -- Labs, alcohol level, acetaminophen, salicylate -- Urinalysis, urine drug screen -- Toradol -- 1:1 -- PES evaluation -- Reassess and disposition Prior Visits: Notes and results from previous visits were reviewed. Progress Notes: Patient will require 1 to 1 secondary to suicidal ideations. Reviewed EKG NSR at 97 bpm. RBBB. No STEMI. No other signs of acute ischemia. Hgb 8.4 hct 25.2. Hgb 14.4 on his last visit to the ED on 11/19/18. Pt reports SOB, lightheadedness. Secondary to symptomatic anemia and hypoxia, pt is not medically cleared for psychiatric admission. PES eval cancelled, will consult psych on the floor. Type and cross ordered with 2 units of PRBC to be transfused. Risks vs. benefits discussed with patient, who verbalized understanding and signed consent 1:[address] aPrada who accepted patient for medical admission to telemetry floor with diagnosis of symptomatic anemia, suicidal ideations. PAtient made aware of change in disposition. Vitals stable at this time, patient resting comfortably in stretcher on 2L O2 NC. - Lab Interpretations Lab Results: 11/28/18 23:10 11/28/18 23:10 Lab Results 11/29/18 01:07: Blood Type O POSITIVE, Antibody Screen Negative, Crossmatch See Detail, BBK History Checked No verified bt 11/28/18 23:25: Urine Opiates Screen Negative, Urine Methadone Screen Negative, Ur Barbiturates Screen Negative, Ur Phencyclidine Scrn Negative, Ur Amphetamines Screen Negative, U Benzodiazepines Scrn Positive H, U Oth Cocaine Metabols Negative, U Cannabinoids Screen Positive H 11/28/18 23:25: Urine Color Yellow, Urine Appearance Clear, Urine pH 6.5, Ur Specific [place] 1.015, Urine Protein Negative, Urine Glucose (UA) Negative, Urine Ketones Negative, Urine Blood Negative, Urine Nitrate Negative, Urine Bilirubin Negative, Urine Urobilinogen 0.2, Ur Leukocyte Esterase Negative 11/28/18 23:10: PT 9.3 L, INR 0.82, APTT 24.8 L 11/28/18 23:10: D-Dimer, Quantitative < 200 11/28/18 23:10: Troponin I < 0.01 11/28/18 23:10: Alcohol, Quantitative 208 H 11/28/18 23:10: Salicylates < 1 L, Acetaminophen < 10.0 L 11/28/18 23:10: Sodium 143, Potassium 3.6, Chloride 110 H, Carbon Dioxide 25, Anion Gap 12, BUN 13, Creatinine 1.1, Est GFR ( Amer) > 60, Est GFR (Non- Af Amer) > 60, Random Glucose 124 H, Calcium 8.6, Magnesium 2.0, Total Bilirubin < 0.1 L, AST 172 H D, ALT 136 H, Alkaline Phosphatase 87, Total Creatine Kinase 287 H, CK-MB (CK-2) 1.3, CK-MB (CK-2) % Cancelled, Total Protein 6.7, Albumin 4.0, Globulin 2.7, Albumin/Globulin Ratio 1.5 11/28/18 23:10: WBC 10.4, RBC 2.59 L, Hgb 8.4 L D, Hct 25.4 L, MCV 98.1 D, MCH 32.4, MCHC 33.1, RDW 15.3 H, Plt Count 223, MPV 9.9, Gran % 43.2 L, Lymph % (Auto) 49.6 H, [place] % (Auto) 4.9, Eos % (Auto) 1.3 L, Baso % (Auto) 1.0, Gran # 4.50, Lymph # (Auto) 5.2 H, [place] # (Auto) 0.5, Eos # (Auto) 0.1, Baso # (Auto) 0.10 I have reviewed the lab results: Yes Interpretation: Abnormal lab values - RAD Interpretation Narrative RAD Interpretations (Text): CXR: No active disease [place] Maker: ED Physician - EKG Interpretation EKG Interpretation (Text): 97 bpm. RBBB. No STEMI. No other signs of acute ischemia. Interpreted by ED Physician: Yes Type: 12 lead EKG - Scribe Statement The provider has reviewed the documentation as recorded by the Stanley Martins Provider Scribe Attestation: All medical record entries made by the Stanley were at my direction and personally dictated by me. I have reviewed the chart and agree that the record accurately reflects my personal performance of the history, physical exam, medical decision making, and the department course for this patient. I have also personally directed, reviewed, and agree with the discharge instructions and disposition. Disposition/Present on Arrival - Present on Arrival Any Indicators Present on Arrival: No History of DVT/PE: No History of Uncontrolled Diabetes: No Urinary Catheter: No History Surgical Site Infection Following: None - Disposition Have Diagnosis and Disposition been Completed?: Yes Diagnosis: Symptomatic anemia, Suicidal ideation Disposition: HOSPITALIZED Disposition Time: 01:30 Patient Plan: Admission, Telemetry Patient Problems: Current Active Problems Problem Status Onset Suicidal ideation Acute Symptomatic anemia Acute Condition: STABLE
[2018-11-28 22:57] VITALS: BMI 31.7
[2018-11-28 23:46] LABS: BASO # 0.1 K/mm3 (0.0-2.0); EOS # 0.1 (0.0-0.7); EOS % 1.3 % (1.5-5.0); GRAN # 4.5 (1.4-6.5); GRAN % 43.2 % (50.0-68.0); LYMPH # 5.2 (1.2-3.4); LYMPH % 49.6 % (22.0-35.0); MEAN CORPUSCULAR HEMOGLOBIN 32.4 pg (25.0-35.0); MEAN CORPUSCULAR HGB CONC 33.1 g/dl (31.0-37.0); MEAN PLATELET VOLUME 9.9 fl (7.0-11.0); MONO # 0.5 (0.1-0.6); MONO % 4.9 % (1.0-6.0); RBC 2.59 10^6/uL (3.5-6.1); RED CELL DISTRIBUTION WIDTH 15.3 % (11.5-14.5)
[2018-11-28 23:48] LABS: HEMOGLOBIN 8.4 g/dL (14.0-18.0); MEAN CELL VOLUME 98.1 fl (80.0-105.0)
[2018-11-28 23:55] LABS: ACETAMINOPHEN < 10.0 ug/ml (10.0-20.0); SALICYLATE < 1 mg/dL (2.0-20.0)
[2018-11-29 00:04] LABS: PH,URINE 6.5 (4.7-8.0); URINE BILIRUBIN NEGATIVE (NEGATIVE); URINE BLOOD NEGATIVE (NEGATIVE); URINE GLUCOSE (UA) NEGATIVE (NEGATIVE); URINE LEUKOCYTE ESTERASE NEGATIVE Leu/uL (NEGATIVE); URINE PROTEIN NEGATIVE mg/dL (<30 mg/dL); URINE UROBILINOGEN 0.2 E.U./dL (<1 E.U./dL)
[2018-11-29 00:05] LABS: URINE APPEARANCE CLEAR (CLEAR); URINE COLOR YELLOW (YELLOW)
[2018-11-29 00:08] LABS: OPIATES, UR NEGATIVE (NEGATIVE)
[2018-11-29 00:19] LABS: BARBITURATES, UR NEGATIVE (NEGATIVE); BENZODIAZEPINES, UR POSITIVE (NEGATIVE); PHENCYCLIDINE, UR NEGATIVE (NEGATIVE)
[2018-11-29 00:23] LABS: ALB/GLOB RATIO 1.5 (1.1-1.8); ALT/SGPT 136 U/L (7-56); AST/SGOT 172 U/L (17-59); BLOOD UREA NITROGEN 13 mg/dL (7-21); CALCIUM 8.6 mg/dL (8.4-10.5); GFR NON-AFRICAN AMERICAN > 60
[2018-11-29 00:27] LABS: CK-MB 1.3 ng/mL (0.0-3.6)
--- NOTE | 2018-11-29 01:14 | CP.PCM.HP ---
<Aniket Wu - Last Filed: 11/29/18 02:17> History of Present Illness - History of Present Illness History of Present Illness: PGY-1 H&P for Dr. Parada CC: EtOH withdrawal with suicidal ideation Patient is a 28 year old male with past medical history of polysubstance abuse, alcohol abuse, bipolar disorder, depression, anxiety, and seizures, presenting with alcohol withdrawal symptoms and suicidal ideation. Patient has been admitted multiple times to [facility] [place] for alcohol withdrawal and was recently admitted at [facility] [place] and discharged yesterday after evaluation of suicidal attempt that occu rred 3 days ago. Patient states he slit his left wrist horizontally with a kitchen knife and had it sutured at [facility] [place]. Patient state that he feels like he is in withdrawal and that his last drink was 1 pint of vodka in the evening. Patient admits to drink 2-3 pints of vodka daily and started drinking when he was 17 years old. Patient admits to some chest pain secondary to his anxiety. He also admits to be having some shortness of breath that started today. Patient admits to have suicidal ideation but no homicidal ideation at this time. Patient denies any fever, chills, dizziness, nausea, vomiting, diarrhea, or urinary symptoms. 12 system ROS reviewed and negative except mention in HPI. Pmhx: Polysubstance abuse (including benzodiazepines, heroin, cocaine, and marijuana), alcohol abuse, bipolar disorder, depression, anxiety, and seizures Pshx: Unspecified RUE surgical repair s/p trauma, appendectomy, unspecified right ankle surgery All: NKDA Family History: Mother-DM2 Social History: Currently smokes one ppd with five year pack smoking history, daily alcohol use - 2 to 3 pints of vodka, and intermittent illicit drug use (including benzodiazepines, heroin, cocaine, and marijuana) Meds: Ativan 1mg QID, Prosac 60mg QD, Trazodone 100mg HS PMD: [facility] Pharm: [facility] [place] Present on Admission - Present on Admission Any Indicators Present on Admission: No History of DVT/PE: No History of Uncontrolled Diabetes: No Urinary Catheter: No Decubitus Ulcer Present: No Review of Systems - Review of Systems All systems: reviewed and no additional remarkable complaints except Past Patient History - Infectious Disease Hx of Infectious Diseases: None - Tetanus Immunizations Tetanus Immunization: Unknown - Past Social History Smoking Status: Heavy Smoker > 10 Cigarettes Daily - CARDIAC Hx Cardiac Disorders: Yes (chest pain) - PULMONARY Hx Respiratory Disorders: Yes (SMOKES CIGARETTES PPD/TRIES QUITTING.ON NICOTINE PATCHES 24) - NEUROLOGICAL Hx Neurological Disorder: Yes Hx Seizures: Yes - HEENT Hx HEENT Problems: Yes - RENAL Hx Chronic Kidney Disease: No - ENDOCRINE/METABOLIC Hx Endocrine Disorders: No - HEMATOLOGICAL/ONCOLOGICAL Hx Blood Disorders: No - INTEGUMENTARY Hx Dermatological Problems: Yes (hx impetigo age 17, genital warts) - MUSCULOSKELETAL/RHEUMATOLOGICAL Hx Musculoskeletal Disorders: Yes Hx Falls: Yes (past) - GASTROINTESTINAL Hx Gastrointestinal Disorders: Yes (gastritis) - GENITOURINARY/GYNECOLOGICAL Hx Genitourinary Disorders: No - PSYCHIATRIC Hx Psychophysiologic Disorder: Yes Hx Bipolar Disorder: Yes Hx Depression: Yes Hx Substance Use: Yes - SURGICAL HISTORY Hx Appendectomy: Yes (perforation) Other/Comment: reconstructive sx right arm due to trauma from jumping over a fence age 24/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 absent: Scleral icterus - ENT Exam ENT Exam: Mucous Membranes Dry - Respiratory Exam Respiratory Exam: Clear to Auscultation Bilateral, NORMAL BREATHING PATTERN. absent: Rales, Rhonchi, Wheezes, Respiratory Distress - Cardiovascular Exam Cardiovascular Exam: REGULAR RHYTHM, +S1, +S2. absent: Gallop, Rubs, Systolic Murmur - GI/Abdominal Exam GI & Abdominal Exam: Normal Bowel Sounds, Soft. absent: Distended, Guarding, Tenderness - Extremities Exam Extremities exam: Positive for: normal inspection. Negative for: calf tenderness, pedal edema - Back Exam Back exam: NORMAL INSPECTION - Neurological Exam Neurological exam: Alert, CN II-XII Intact, Oriented x3 - Psychiatric Exam Psychiatric exam: Flat Affect - Skin Skin Exam: Dry, Normal Color, Warm Additional comments: 10 cm laceration to left mid-forearm, sutures intact, no signs of infection, no redness, no discharge Results - Vital Signs Recent Vital Signs: Last Vital Signs Temp 98.1 F 11/29/18 01:05 Pulse 82 11/29/18 01:05 Resp 16 11/29/18 01:05 BP 100/60 11/29/18 01:05 Pulse Ox 98 11/29/18 01:05 - Labs Result Diagrams: 11/28/18 23:10 11/28/18 23:10 Labs: Laboratory Results - last 24 hr 11/28/18 11/28/18 11/28/18 23:10 23:10 23:10 WBC 10.4 RBC 2.59 L Hgb 8.4 L D Hct 25.4 L MCV 98.1 D MCH 32.4 MCHC 33.1 RDW 15.3 H Plt Count 223 MPV 9.9 Gran % 43.2 L Lymph % (Auto) 49.6 H [place] % (Auto) 4.9 Eos % (Auto) 1.3 L Baso % (Auto) 1.0 Gran # 4.50 Lymph # (Auto) 5.2 H [place] # (Auto) 0.5 Eos # (Auto) 0.1 Baso # (Auto) 0.10 Sodium 143 Potassium 3.6 Chloride 110 H Carbon Dioxide 25 Anion Gap 12 BUN 13 Creatinine 1.1 Est GFR ( Amer) > 60 Est GFR (Non-Af Amer) > 60 Random Glucose 124 H Calcium 8.6 Magnesium 2.0 Total Bilirubin < 0.1 L AST 172 H D ALT 136 H Alkaline Phosphatase 87 Total Creatine Kinase 287 H CK-MB (CK-2) 1.3 CK-MB (CK-2) % Cancelled Troponin I Total Protein 6.7 Albumin 4.0 Globulin 2.7 Albumin/Globulin Ratio 1.5 Urine Color Urine Appearance Urine pH Ur Specific [place] Urine Protein Urine Glucose (UA) Urine Ketones Urine Blood Urine Nitrate Urine Bilirubin Urine Urobilinogen Ur Leukocyte Esterase Salicylates < 1 L Urine Opiates Screen Urine Methadone Screen Acetaminophen < 10.0 L Ur Barbiturates Screen Ur Phencyclidine Scrn Ur Amphetamines Screen U Benzodiazepines Scrn U Oth Cocaine Metabols U Cannabinoids Screen Alcohol, Quantitative 11/28/18 11/28/18 11/28/18 23:10 23:10 23:25 WBC RBC Hgb Hct MCV MCH MCHC RDW Plt Count MPV Gran % Lymph % (Auto) [place] % (Auto) Eos % (Auto) Baso % (Auto) Gran # Lymph # (Auto) [place] # (Auto) Eos # (Auto) Baso # (Auto) Sodium Potassium Chloride Carbon Dioxide Anion Gap BUN Creatinine Est GFR ( Amer) Est GFR (Non-Af Amer) Random Glucose Calcium Magnesium Total Bilirubin AST ALT Alkaline Phosphatase Total Creatine Kinase CK-MB (CK-2) CK-MB (CK-2) % Troponin I < 0.01 Total Protein Albumin Globulin Albumin/Globulin Ratio Urine Color Yellow Urine Appearance Clear Urine pH 6.5 Ur Specific [place] 1.015 Urine Protein Negative Urine Glucose (UA) Negative Urine Ketones Negative Urine Blood Negative Urine Nitrate Negative Urine Bilirubin Negative Urine Urobilinogen 0.2 Ur Leukocyte Esterase Negative Salicylates Urine Opiates Screen Urine Methadone Screen Acetaminophen Ur Barbiturates Screen Ur Phencyclidine Scrn Ur Amphetamines Screen U Benzodiazepines Scrn U Oth Cocaine Metabols U Cannabinoids Screen Alcohol, Quantitative 208 H 11/28/18 23:25 WBC RBC Hgb Hct MCV MCH MCHC RDW Plt Count MPV Gran % Lymph % (Auto) [place] % (Auto) Eos % (Auto) Baso % (Auto) Gran # Lymph # (Auto) [place] # (Auto) Eos # (Auto) Baso # (Auto) Sodium Potassium Chloride Carbon Dioxide Anion Gap BUN Creatinine Est GFR ( Amer) Est GFR (Non-Af Amer) Random Glucose Calcium Magnesium Total Bilirubin AST ALT Alkaline Phosphatase Total Creatine Kinase CK-MB (CK-2) CK-MB (CK-2) % Troponin I Total Protein Albumin Globulin Albumin/Globulin Ratio Urine Color Urine Appearance Urine pH Ur Specific [place] Urine Protein Urine Glucose (UA) Urine Ketones Urine Blood Urine Nitrate Urine Bilirubin Urine Urobilinogen Ur Leukocyte Esterase Salicylates Urine Opiates Screen Negative Urine Methadone Screen Negative Acetaminophen Ur Barbiturates Screen Negative Ur Phencyclidine Scrn Negative Ur Amphetamines Screen Negative U Benzodiazepines Scrn Positive H U Oth Cocaine Metabols Negative U Cannabinoids Screen Positive H Alcohol, Quantitative Assessment & Plan - Assessment and Plan (Free Text) Assessment: Patient is a 28 year old male with past medical history of polysubstance abuse, alcohol abuse, bipolar disorder, depression, anxiety, and seizures, presenting with alcohol withdrawal symptoms and suicidal ideation. Plan: EtOH withdrawal symptoms - EtOH level: 208 - Ativan 2mg IVP Q6 and 2mg IVP Q4 PRN - Banana bag - [facility] protocol - Multivitamins, Thiamine, folate daily - Seizure and fall precautions - EKG: NSR at 97 bpm. RBBB. - CXR: pending official read - Troponin: <0.01 X 2 - Trend Troponins Anemia, r/o GI bleed vs other etiologies - Hb/Hct:8.4/25.4 - MCV: 98.1 - Stool guaiac test: negative - Stool occult blood: pending - 1 unit of PRBC ordered - % Iron, TIBC, Ferritin, Transferrin: pending - Vit B12 and Folate: pending - Reticulocyte count: pending - Peripheral smear: pending - Continue to monitor H&H Hx of depression, bipolar, and anxiety with suicidal ideation - Psychiatry consulted, Dr. Mi - 1:1 - Management as per psych Polysubstance abuse - UDS: positive for Benzos and Cannabinoids - EtOH level: 208 - Educated patient on smoking cessation Transaminitis, likely 2/2 alcohol abuse - AST/ALT: 172/136 - Avoid hepatotoxic agents - Continue to monitor Tobacco abuse disorder - Educated patient on smoking cessation Prophylaxis: - GI: Protonix 40mg PO QD - DVT: SCD's Case discussed with Dr. Tal Wu, PGY-1 <Junior Parada - Last Filed: 11/29/18 06:39> Results - Vital Signs Recent Vital Signs: Last Vital Signs Temp 97.9 F 11/29/18 04:53 Pulse 82 11/29/18 04:53 Resp 19 11/29/18 04:53 BP 102/60 11/29/18 04:53 Pulse Ox 97 11/29/18 02:35 - Labs Result Diagrams: 11/28/18 23:10 11/28/18 23:10 Labs: Laboratory Results - last 24 hr 11/28/18 11/28/18 11/28/18 23:10 23:10 23:10 WBC 10.4 RBC 2.59 L Hgb 8.4 L D Hct 25.4 L MCV 98.1 D MCH 32.4 MCHC 33.1 RDW 15.3 H Plt Count 223 MPV 9.9 Gran % 43.2 L Lymph % (Auto) 49.6 H [place] % (Auto) 4.9 Eos % (Auto) 1.3 L Baso % (Auto) 1.0 Gran # 4.50 Lymph # (Auto) 5.2 H [place] # (Auto) 0.5 Eos # (Auto) 0.1 Baso # (Auto) 0.10 PT INR APTT D-Dimer, Quantitative Sodium 143 Potassium 3.6 Chloride 110 H Carbon Dioxide 25 Anion Gap 12 BUN 13 Creatinine 1.1 Est GFR ( Amer) > 60 Est GFR (Non-Af Amer) > 60 Random Glucose 124 H Calcium 8.6 Magnesium 2.0 Total Bilirubin < 0.1 L AST 172 H D ALT 136 H Alkaline Phosphatase 87 Total Creatine Kinase 287 H CK-MB (CK-2) 1.3 CK-MB (CK-2) % Cancelled Troponin I Total Protein 6.7 Albumin 4.0 Globulin 2.7 Albumin/Globulin Ratio 1.5 Urine Color Urine Appearance Urine pH Ur Specific [place] Urine Protein Urine Glucose (UA) Urine Ketones Urine Blood Urine Nitrate Urine Bilirubin Urine Urobilinogen Ur Leukocyte Esterase Salicylates < 1 L Urine Opiates Screen Urine Methadone Screen Acetaminophen < 10.0 L Ur Barbiturates Screen Ur Phencyclidine Scrn Ur Amphetamines Screen U Benzodiazepines Scrn U Oth Cocaine Metabols U Cannabinoids Screen Alcohol, Quantitative Blood Type Blood Type Confirm Antibody Screen Crossmatch BBK History Checked 11/28/18 11/28/18 11/28/18 23:10 23:10 23:10 WBC RBC Hgb Hct MCV MCH MCHC RDW Plt Count MPV Gran % Lymph % (Auto) [place] % (Auto) Eos % (Auto) Baso % (Auto) Gran # Lymph # (Auto) [place] # (Auto) Eos # (Auto) Baso # (Auto) PT INR APTT D-Dimer, Quantitative < 200 Sodium Potassium Chloride Carbon Dioxide Anion Gap BUN Creatinine Est GFR ( Amer) Est GFR (Non-Af Amer) Random Glucose Calcium Magnesium Total Bilirubin AST ALT Alkaline Phosphatase Total Creatine Kinase CK-MB (CK-2) CK-MB (CK-2) % Troponin I < 0.01 Total Protein Albumin Globulin Albumin/Globulin Ratio Urine Color Urine Appearance Urine pH Ur Specific [place] Urine Protein Urine Glucose (UA) Urine Ketones Urine Blood Urine Nitrate Urine Bilirubin Urine Urobilinogen Ur Leukocyte Esterase Salicylates Urine Opiates Screen Urine Methadone Screen Acetaminophen Ur Barbiturates Screen Ur Phencyclidine Scrn Ur Amphetamines Screen U Benzodiazepines Scrn U Oth Cocaine Metabols U Cannabinoids Screen Alcohol, Quantitative 208 H Blood Type Blood Type Confirm Antibody Screen Crossmatch BBK History Checked 11/28/18 11/28/18 11/28/18 23:10 23:25 23:25 WBC RBC Hgb Hct MCV MCH MCHC RDW Plt Count MPV Gran % Lymph % (Auto) [place] % (Auto) Eos % (Auto) Baso % (Auto) Gran # Lymph # (Auto) [place] # (Auto) Eos # (Auto) Baso # (Auto) PT 9.3 L INR 0.82 APTT 24.8 L D-Dimer, Quantitative Sodium Potassium Chloride Carbon Dioxide Anion Gap BUN Creatinine Est GFR ( Amer) Est GFR (Non-Af Amer) Random Glucose Calcium Magnesium Total Bilirubin AST ALT Alkaline Phosphatase Total Creatine Kinase CK-MB (CK-2) CK-MB (CK-2) % Troponin I Total Protein Albumin Globulin Albumin/Globulin Ratio Urine Color Yellow Urine Appearance Clear Urine pH 6.5 Ur Specific [place] 1.015 Urine Protein Negative Urine Glucose (UA) Negative Urine Ketones Negative Urine Blood Negative Urine Nitrate Negative Urine Bilirubin Negative Urine Urobilinogen 0.2 Ur Leukocyte Esterase Negative Salicylates Urine Opiates Screen Negative Urine Methadone Screen Negative Acetaminophen Ur Barbiturates Screen Negative Ur Phencyclidine Scrn Negative Ur Amphetamines Screen Negative U Benzodiazepines Scrn Positive H U Oth Cocaine Metabols Negative U Cannabinoids Screen Positive H Alcohol, Quantitative Blood Type Blood Type Confirm Antibody Screen Crossmatch BBK History Checked 11/29/18 11/29/18 01:07 01:49 WBC RBC Hgb Hct MCV MCH MCHC RDW Plt Count MPV Gran % Lymph % (Auto) [place] % (Auto) Eos % (Auto) Baso % (Auto) Gran # Lymph # (Auto) [place] # (Auto) Eos # (Auto) Baso # (Auto) PT INR APTT D-Dimer, Quantitative Sodium Potassium Chloride Carbon Dioxide Anion Gap BUN Creatinine Est GFR ( Amer) Est GFR (Non-Af Amer) Random Glucose Calcium Magnesium Total Bilirubin AST ALT Alkaline Phosphatase Total Creatine Kinase CK-MB (CK-2) CK-MB (CK-2) % Troponin I Total Protein Albumin Globulin Albumin/Globulin Ratio Urine Color Urine Appearance Urine pH Ur Specific [place] Urine Protein Urine Glucose (UA) Urine Ketones Urine Blood Urine Nitrate Urine Bilirubin Urine Urobilinogen Ur Leukocyte Esterase Salicylates Urine Opiates Screen Urine Methadone Screen Acetaminophen Ur Barbiturates Screen Ur Phencyclidine Scrn Ur Amphetamines Screen U Benzodiazepines Scrn U Oth Cocaine Metabols U Cannabinoids Screen Alcohol, Quantitative Blood Type O POSITIVE Blood Type Confirm O POSITIVE Antibody Screen Negative Crossmatch See Detail BBK History Checked No verified bt Attending/Attestation - Attestation I have personally seen and examined this patient.: Yes I have fully participated in the care of the patient.: Yes I have reviewed all pertinent clinical information: Yes
[2018-11-29 01:23] LABS: INR 0.82; PARTIAL THROMBOPLASTIN TIME 24.8 Seconds (25.1-36.5)
[2018-11-29 01:26] LABS: PROTHROMBIN TIME 9.3 SECONDS (9.4-12.5)
[2018-11-29] MEDS ORDERED: Multivitamin (MVI) 10 ML, Thiamine 100 MG, Folic Acid 1 MG in Sodium Chloride 0.9% 1,00... IV ONE (01:43)
[2018-11-29 02:26] LABS: WHITE BLOOD COUNT 10.4 10^3/uL (4.5-11.0)
[2018-11-29] MEDS ORDERED: Lidocaine 5% Patch TD ONE (03:29)
[2018-11-29] MEDS ORDERED: Pantoprazole 40 mg EC Tab PO SCH ×2 (06:00)
[2018-11-29 09:47] LABS: BASO # 0.06 K/mm3 (0.0-2.0); BASO % 0.9 % (0.0-3.0); EOS # 0.1 (0.0-0.7); EOS % 1.7 % (1.5-5.0); GRAN # 2.98 (1.4-6.5); GRAN % 42.6 % (50.0-68.0); HEMOGLOBIN 8.1 g/dL (14.0-18.0); LYMPH # 3.5 (1.2-3.4); LYMPH % 49.9 % (22.0-35.0); MEAN CELL VOLUME 97.7 fl (80.0-105.0); MEAN CORPUSCULAR HEMOGLOBIN 31.4 pg (25.0-35.0); MEAN CORPUSCULAR HGB CONC 32.1 g/dl (31.0-37.0); MEAN PLATELET VOLUME 10.4 fl (7.0-11.0); MONO # 0.3 (0.1-0.6); MONO % 4.9 % (1.0-6.0); PLATELET COUNT 171 10^3/uL (120.0-450.0); RBC 2.58 10^6/uL (3.5-6.1)
--- NOTE | 2018-11-29 09:53 | CARD ---
APPROVED REPORT Date of service: 11/28/2018 EKG Measurement Heart [id number] <Conclusion> Normal sinus rhythm Incomplete right bundle branch block Borderline ECG
[2018-11-29] MEDS ORDERED: Multivitamin With Minerals Tab PO SCH (10:00)
--- NOTE | 2018-11-29 10:01 | CP.PCM.CON ---
<Joby Arredondo - Last Filed: 11/29/18 13:53> History of Present Illness - History of Present Illness History of Present Illness: PGY-4 GI Fellow Consult Note Pt is a 28 yo WM with h/o Polysubstance abuse (EtOH, benzos, MJ, cocaine), Bipolar, Depression/Anxiety presenting with complaint of suicidal ideation and concerns for EtOH withdrawal. GI consulted for anemia (Hgb 8.4 from previous normal values). He states that he has not noticed any black or red stools. Reports daily or every other day dark brown bowel movements. States that he had some mild N/V of bilious emesis with non-specific epigastric discomfort which he attributes to the alcohol use. He reports some mild constipation at time which he attributes to some opiod abuse. He denied any weight loss, dysphagia, NSAID/blood thinner use, melena nor hematochezia. Of note, he states that he was recently admitted to [facility] [place] after suicide attempt where he slit his wrist and lost "a lot of blood." He states he is not sure if he had a blood transfusion while recently admitted. No prior EGD/CSPYs. 12 point ROS negative other than stated above MHx: Polysubstance abuse (including benzodiazepines, heroin, cocaine, and m arijuana), alcohol abuse, bipolar disorder, depression, anxiety, and seizures SurgHx: Unspecified RUE surgical repair s/p trauma, appendectomy, unspecified right ankle surgery Meds: Ativan 1mg QID, Prosac 60mg QD, Trazodone 100mg HS FamHx: Mother-DM2; denied family h/o GI/CRC problems SocHx: Currently smokes one ppd with five year pack smoking history, daily alcohol use - 2 to 3 pints of vodka, and intermittent illicit drug use (including benzodiazepines, heroin, cocaine, and marijuana) All: NKDA Past Patient History - Infectious Disease Hx of Infectious Diseases: None - Tetanus Immunizations Tetanus Immunization: Unknown - Past Social History Smoking Status: Heavy Smoker > 10 Cigarettes Daily - CARDIAC Hx Cardiac Disorders: Yes (chest pain) - PULMONARY Hx Respiratory Disorders: Yes (SMOKES CIGARETTES PPD/TRIES QUITTING.ON NICOTINE PATCHES 24) - NEUROLOGICAL Hx Neurological Disorder: Yes Hx Seizures: Yes - HEENT Hx HEENT Problems: Yes - RENAL Hx Chronic Kidney Disease: No - ENDOCRINE/METABOLIC Hx Endocrine Disorders: No - HEMATOLOGICAL/ONCOLOGICAL Hx Blood Disorders: No - INTEGUMENTARY Hx Dermatological Problems: Yes (hx impetigo age 17, genital warts) - MUSCULOSKELETAL/RHEUMATOLOGICAL Hx Musculoskeletal Disorders: Yes Hx Falls: Yes (past) - GASTROINTESTINAL Hx Gastrointestinal Disorders: Yes (gastritis) - GENITOURINARY/GYNECOLOGICAL Hx Genitourinary Disorders: No - PSYCHIATRIC Hx Psychophysiologic Disorder: Yes Hx Bipolar Disorder: Yes Hx Depression: Yes Hx Substance Use: Yes - SURGICAL HISTORY Hx Appendectomy: Yes (perforation) Other/Comment: reconstructive sx right arm due to trauma from jumping over a fence age 24/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12/ - ANESTHESIA Hx Anesthesia: Yes Hx Anesthesia Reactions: No Hx Malignant Hyperthermia: No Meds Allergies/Adverse Reactions: Allergies Allergy/AdvReac Type Severity Reaction Status Date / Time No Known Allergies Allergy Verified 11/28/18 22:56 - Medications Medications: Current Medications Fluoxetine HCl (Prozac) 30 mg PO BID [facility] Gabapentin (Neurontin) 300 mg PO TID [facility]; Protocol Multivitamins/Vitamin C 10 ml/Thiamine HCl 100 mg/ Folic Acid 1 mg/ Sodium Chloride 1,011.2 mls @ 100 mls/hr IV .Q10H7M ONE Stop: 11/29/18 11:49 Last Admin: 11/29/18 02:15 Dose: 100 mls/hr Lorazepam (Ativan) 2 mg IVP Q2H PRN; Protocol PRN Reason: Symptoms of alcohol withdrawl Lorazepam (Ativan) 2 mg IVP Q6H [facility]; Protocol Last Admin: 11/29/18 08:35 Dose: 2 mg Ondansetron HCl (Zofran Inj) 4 mg IVP Q4H PRN PRN Reason: Nausea/Vomiting Pantoprazole Sodium (Protonix Inj) 40 mg IVP Q12 [facility] Trazodone HCl (Desyrel) 100 mg PO HS [facility] Physical Exam - Constitutional Appears: Well, No Acute Distress - Head Exam Head Exam: ATRAUMATIC, NORMAL INSPECTION - Eye Exam Eye Exam: EOMI. absent: Scleral icterus - ENT Exam ENT Exam: Mucous Membranes Moist. absent: Mucous Membranes Dry - Respiratory Exam Respiratory Exam: Clear to Auscultation Bilateral, NORMAL BREATHING PATTERN. absent: Accessory Muscle Use, Respiratory Distress - Cardiovascular Exam Cardiovascular Exam: REGULAR RHYTHM, RRR - GI/Abdominal Exam GI & Abdominal Exam: Normal Bowel Sounds, Soft. absent: Bruit, Diminished Bowel Sounds, Distended, Firm, Guarding, Hernia, Mass, Organomegaly, Pulsatile Mass, Rebound, Rigid, Tenderness - Rectal Exam Rectal Exam: NORMAL INSPECTION Additional comments: no stool within rectal vault, no obv palpable masses - Extremities Exam Additional comments: LUE wrapped with dressing and partially visualized several inch laceration with sutures in place - Neurological Exam Neurological exam: Alert, CN II-XII Intact - Skin Skin Exam: Dry, Warm Results - Vital Signs Recent Vital Signs: Last Vital Signs Temp 98.0 F 11/29/18 07:10 Pulse 71 11/29/18 07:10 Resp 18 11/29/18 07:10 BP 117/73 11/29/18 07:10 Pulse Ox 100 11/29/18 06:00 - Labs Result Diagrams: 11/29/18 09:35 11/29/18 09:35 Labs: Laboratory Results - last 24 hr 11/28/18 11/28/18 11/28/18 23:10 23:10 23:10 WBC 10.4 RBC 2.59 L Hgb 8.4 L D Hct 25.4 L MCV 98.1 D MCH 32.4 MCHC 33.1 RDW 15.3 H Plt Count 223 MPV 9.9 Gran % 43.2 L Lymph % (Auto) 49.6 H Mayes % (Auto) 4.9 Eos % (Auto) 1.3 L Baso % (Auto) 1.0 Gran # 4.50 Lymph # (Auto) 5.2 H Mayes # (Auto) 0.5 Eos # (Auto) 0.1 Baso # (Auto) 0.10 Retic Count PT INR APTT D-Dimer, Quantitative Sodium 143 Potassium 3.6 Chloride 110 H Carbon Dioxide 25 Anion Gap 12 BUN 13 Creatinine 1.1 Est GFR ( Amer) > 60 Est GFR (Non-Af Amer) > 60 Random Glucose 124 H Calcium 8.6 Magnesium 2.0 Total Bilirubin < 0.1 L AST 172 H D ALT 136 H Alkaline Phosphatase 87 Total Creatine Kinase 287 H CK-MB (CK-2) 1.3 CK-MB (CK-2) % Cancelled Troponin I Total Protein 6.7 Albumin 4.0 Globulin 2.7 Albumin/Globulin Ratio 1.5 Urine Color Urine Appearance Urine pH Ur Specific [place] Urine Protein Urine Glucose (UA) Urine Ketones Urine Blood Urine Nitrate Urine Bilirubin Urine Urobilinogen Ur Leukocyte Esterase Salicylates < 1 L Urine Opiates Screen Urine Methadone Screen Acetaminophen < 10.0 L Ur Barbiturates Screen Ur Phencyclidine Scrn Ur Amphetamines Screen U Benzodiazepines Scrn U Oth Cocaine Metabols U Cannabinoids Screen Alcohol, Quantitative Blood Type Blood Type Confirm Antibody Screen Crossmatch BBK History Checked 11/28/18 11/28/18 11/28/18 23:10 23:10 23:10 WBC RBC Hgb Hct MCV MCH MCHC RDW Plt Count MPV Gran % Lymph % (Auto) Mayes % (Auto) Eos % (Auto) Baso % (Auto) Gran # Lymph # (Auto) Mayes # (Auto) Eos # (Auto) Baso # (Auto) Retic Count PT INR APTT D-Dimer, Quantitative < 200 Sodium Potassium Chloride Carbon Dioxide Anion Gap BUN Creatinine Est GFR ( Amer) Est GFR (Non-Af Amer) Random Glucose Calcium Magnesium Total Bilirubin AST ALT Alkaline Phosphatase Total Creatine Kinase CK-MB (CK-2) CK-MB (CK-2) % Troponin I < 0.01 Total Protein Albumin Globulin Albumin/Globulin Ratio Urine Color Urine Appearance Urine pH Ur Specific [place] Urine Protein Urine Glucose (UA) Urine Ketones Urine Blood Urine Nitrate Urine Bilirubin Urine Urobilinogen Ur Leukocyte Esterase Salicylates Urine Opiates Screen Urine Methadone Screen Acetaminophen Ur Barbiturates Screen Ur Phencyclidine Scrn Ur Amphetamines Screen U Benzodiazepines Scrn U Oth Cocaine Metabols U Cannabinoids Screen Alcohol, Quantitative 208 H Blood Type Blood Type Confirm Antibody Screen Crossmatch BBK History Checked 11/28/18 11/28/18 11/28/18 23:10 23:25 23:25 WBC RBC Hgb Hct MCV MCH MCHC RDW Plt Count MPV Gran % Lymph % (Auto) Mayes % (Auto) Eos % (Auto) Baso % (Auto) Gran # Lymph # (Auto) Mayes # (Auto) Eos # (Auto) Baso # (Auto) Retic Count PT 9.3 L INR 0.82 APTT 24.8 L D-Dimer, Quantitative Sodium Potassium Chloride Carbon Dioxide Anion Gap BUN Creatinine Est GFR ( Amer) Est GFR (Non-Af Amer) Random Glucose Calcium Magnesium Total Bilirubin AST ALT Alkaline Phosphatase Total Creatine Kinase CK-MB (CK-2) CK-MB (CK-2) % Troponin I Total Protein Albumin Globulin Albumin/Globulin Ratio Urine Color Yellow Urine Appearance Clear Urine pH 6.5 Ur Specific [place] 1.015 Urine Protein Negative Urine Glucose (UA) Negative Urine Ketones Negative Urine Blood Negative Urine Nitrate Negative Urine Bilirubin Negative Urine Urobilinogen 0.2 Ur Leukocyte Esterase Negative Salicylates Urine Opiates Screen Negative Urine Methadone Screen Negative Acetaminophen Ur Barbiturates Screen Negative Ur Phencyclidine Scrn Negative Ur Amphetamines Screen Negative U Benzodiazepines Scrn Positive H U Oth Cocaine Metabols Negative U Cannabinoids Screen Positive H Alcohol, Quantitative Blood Type Blood Type Confirm Antibody Screen Crossmatch BBK History Checked 11/29/18 11/29/18 11/29/18 01:07 01:49 09:35 WBC 7.0 D RBC 2.58 L Hgb 8.1 L Hct 25.2 L MCV 97.7 MCH 31.4 MCHC 32.1 RDW 16.0 H Plt Count 171 MPV 10.4 Gran % 42.6 L Lymph % (Auto) 49.9 H Mayes % (Auto) 4.9 Eos % (Auto) 1.7 Baso % (Auto) 0.9 Gran # 2.98 Lymph # (Auto) 3.5 H Mayes # (Auto) 0.3 Eos # (Auto) 0.1 Baso # (Auto) 0.06 Retic Count 5.26 H PT INR APTT D-Dimer, Quantitative Sodium Potassium Chloride Carbon Dioxide Anion Gap BUN Creatinine Est GFR ( Amer) Est GFR (Non-Af Amer) Random Glucose Calcium Magnesium Total Bilirubin AST ALT Alkaline Phosphatase Total Creatine Kinase CK-MB (CK-2) CK-MB (CK-2) % Troponin I Total Protein Albumin Globulin Albumin/Globulin Ratio Urine Color Urine Appearance Urine pH Ur Specific [place] Urine Protein Urine Glucose (UA) Urine Ketones Urine Blood Urine Nitrate Urine Bilirubin Urine Urobilinogen Ur Leukocyte Esterase Salicylates Urine Opiates Screen Urine Methadone Screen Acetaminophen Ur Barbiturates Screen Ur Phencyclidine Scrn Ur Amphetamines Screen U Benzodiazepines Scrn U Oth Cocaine Metabols U Cannabinoids Screen Alcohol, Quantitative Blood Type O POSITIVE Blood Type Confirm O POSITIVE Antibody Screen Negative Crossmatch See Detail BBK History Checked No verified bt Assessment & Plan - Assessment and Plan (Free Text) Assessment: 28 yo WM with Polysubstance abuse, recent suicide attempt presenting with EtOH w/d and suicidal ideation. GI consulted for anemia. # Acute Normocytic Anemia: Hgb 8.4 from previously normal values. No obvious active GI blood loss at this time, but pt with ongoing risk factors of EtOH abuse. Suspect related to blood loss from suicide attempt with wrist cutting as patient with large wound on upper extremity and reportedly "lots of blood" lost at [facility] [place] after recent suicide attempt. However, post-transfusion Hgb did not respond appropriately. # Transamnitis: Likely related to EtOH given typical AST:ALT ratio. Bili <0.1. # Polysubstance abuse: EtOH, benzo, MJ, cocaine # Depression/Anxiety, Bipolar: Recent suicide attempt Plan: - EGD later today --- Risks, benefits, alternatives discussed with patient --- Pt consented for procedure; witnessed and consent in chart - NPO - Cont PPI IV BID for now - Monitor for EtOH w/d - Counseled on EtOH, substance abuse cessation - Further recs pending EGD findings Pt discussed with Dr. Hill; please see attestation for further recs/changes. <Vincent Hill Y - Last Filed: 11/29/18 14:05> Meds - Medications Medications: Current Medications Fluoxetine HCl (Prozac) 30 mg PO BID [facility] Last Admin: 11/29/18 11:19 Dose: 30 mg Gabapentin (Neurontin) 300 mg PO TID [facility]; Protocol Last Admin: 11/29/18 11:18 Dose: 300 mg Lorazepam (Ativan) 2 mg IVP Q2H PRN; Protocol PRN Reason: Symptoms of alcohol withdrawl Lorazepam (Ativan) 2 mg IVP Q6H [facility]; Protocol Last Admin: 11/29/18 08:35 Dose: 2 mg Ondansetron HCl (Zofran Inj) 4 mg IVP Q4H PRN PRN Reason: Nausea/Vomiting Pantoprazole Sodium (Protonix Inj) 40 mg IVP Q12 [facility] Last Admin: 11/29/18 11:18 Dose: 40 mg Trazodone HCl (Desyrel) 100 mg PO HS [facility] Results - Vital Signs Recent Vital Signs: Last Vital Signs Temp 98.1 F 11/29/18 13:00 Pulse 74 11/29/18 13:00 Resp 18 11/29/18 13:00 BP 124/80 11/29/18 13:00 Pulse Ox 99 01/21/19 13:00 - Labs Result Diagrams: 11/29/18 09:35 11/29/18 09:35 Labs: Laboratory Results - last 24 hr 11/28/18 11/28/18 11/28/18 23:10 23:10 23:10 WBC 10.4 RBC 2.59 L Hgb 8.4 L D Hct 25.4 L MCV 98.1 D MCH 32.4 MCHC 33.1 RDW 15.3 H Plt Count 223 MPV 9.9 Gran % 43.2 L Lymph % (Auto) 49.6 H Mayes % (Auto) 4.9 Eos % (Auto) 1.3 L Baso % (Auto) 1.0 Gran # 4.50 Lymph # (Auto) 5.2 H Mayes # (Auto) 0.5 Eos # (Auto) 0.1 Baso # (Auto) 0.10 Differential Comment Retic Count PT INR APTT D-Dimer, Quantitative Sodium 143 Potassium 3.6 Chloride 110 H Carbon Dioxide 25 Anion Gap 12 BUN 13 Creatinine 1.1 Est GFR ( Amer) > 60 Est GFR (Non-Af Amer) > 60 Random Glucose 124 H Calcium 8.6 Phosphorus Magnesium 2.0 Iron TIBC % Saturation Total Bilirubin < 0.1 L AST 172 H D ALT 136 H Alkaline Phosphatase 87 Total Creatine Kinase 287 H CK-MB (CK-2) 1.3 CK-MB (CK-2) % Cancelled Troponin I Total Protein 6.7 Albumin 4.0 Globulin 2.7 Albumin/Globulin Ratio 1.5 Urine Color Urine Appearance Urine pH Ur Specific [place] Urine Protein Urine Glucose (UA) Urine Ketones Urine Blood Urine Nitrate Urine Bilirubin Urine Urobilinogen Ur Leukocyte Esterase Salicylates < 1 L Urine Opiates Screen Urine Methadone Screen Acetaminophen < 10.0 L Ur Barbiturates Screen Ur Phencyclidine Scrn Ur Amphetamines Screen U Benzodiazepines Scrn U Oth Cocaine Metabols U Cannabinoids Screen Alcohol, Quantitative Blood Type Blood Type Confirm Antibody Screen Crossmatch BBK History Checked 11/28/18 11/28/18 11/28/18 23:10 23:10 23:10 WBC RBC Hgb Hct MCV MCH MCHC RDW Plt Count MPV Gran % Lymph % (Auto) Mayes % (Auto) Eos % (Auto) Baso % (Auto) Gran # Lymph # (Auto) Mayes # (Auto) Eos # (Auto) Baso # (Auto) Differential Comment Retic Count PT INR APTT D-Dimer, Quantitative < 200 Sodium Potassium Chloride Carbon Dioxide Anion Gap BUN Creatinine Est GFR ( Amer) Est GFR (Non-Af Amer) Random Glucose Calcium Phosphorus Magnesium Iron TIBC % Saturation Total Bilirubin AST ALT Alkaline Phosphatase Total Creatine Kinase CK-MB (CK-2) CK-MB (CK-2) % Troponin I < 0.01 Total Protein Albumin Globulin Albumin/Globulin Ratio Urine Color Urine Appearance Urine pH Ur Specific [place] Urine Protein Urine Glucose (UA) Urine Ketones Urine Blood Urine Nitrate Urine Bilirubin Urine Urobilinogen Ur Leukocyte Esterase Salicylates Urine Opiates Screen Urine Methadone Screen Acetaminophen Ur Barbiturates Screen Ur Phencyclidine Scrn Ur Amphetamines Screen U Benzodiazepines Scrn U Oth Cocaine Metabols U Cannabinoids Screen Alcohol, Quantitative 208 H Blood Type Blood Type Confirm Antibody Screen Crossmatch BBK History Checked 11/28/18 11/28/18 11/28/18 23:10 23:25 23:25 WBC RBC Hgb Hct MCV MCH MCHC RDW Plt Count MPV Gran % Lymph % (Auto) Mayes % (Auto) Eos % (Auto) Baso % (Auto) Gran # Lymph # (Auto) Mayes # (Auto) Eos # (Auto) Baso # (Auto) Differential Comment Retic Count PT 9.3 L INR 0.82 APTT 24.8 L D-Dimer, Quantitative Sodium Potassium Chloride Carbon Dioxide Anion Gap BUN Creatinine Est GFR ( Amer) Est GFR (Non-Af Amer) Random Glucose Calcium Phosphorus Magnesium Iron TIBC % Saturation Total Bilirubin AST ALT Alkaline Phosphatase Total Creatine Kinase CK-MB (CK-2) CK-MB (CK-2) % Troponin I Total Protein Albumin Globulin Albumin/Globulin Ratio Urine Color Yellow Urine Appearance Clear Urine pH 6.5 Ur Specific [place] 1.015 Urine Protein Negative Urine Glucose (UA) Negative Urine Ketones Negative Urine Blood Negative Urine Nitrate Negative Urine Bilirubin Negative Urine Urobilinogen 0.2 Ur Leukocyte Esterase Negative Salicylates Urine Opiates Screen Negative Urine Methadone Screen Negative Acetaminophen Ur Barbiturates Screen Negative Ur Phencyclidine Scrn Negative Ur Amphetamines Screen Negative U Benzodiazepines Scrn Positive H U Oth Cocaine Metabols Negative U Cannabinoids Screen Positive H Alcohol, Quantitative Blood Type Blood Type Confirm Antibody Screen Crossmatch BBK History Checked 11/29/18 11/29/18 11/29/18 01:07 01:49 09:35 WBC 7.0 D RBC 2.58 L Hgb 8.1 L Hct 25.2 L MCV 97.7 MCH 31.4 MCHC 32.1 RDW 16.0 H Plt Count 171 MPV 10.4 Gran % 42.6 L Lymph % (Auto) 49.9 H Mayes % (Auto) 4.9 Eos % (Auto) 1.7 Baso % (Auto) 0.9 Gran # 2.98 Lymph # (Auto) 3.5 H Mayes # (Auto) 0.3 Eos # (Auto) 0.1 Baso # (Auto) 0.06 Differential Comment See pathology report Retic Count 5.26 H PT INR APTT D-Dimer, Quantitative Sodium Potassium Chloride Carbon Dioxide Anion Gap BUN Creatinine Est GFR ( Amer) Est GFR (Non-Af Amer) Random Glucose Calcium Phosphorus Magnesium Iron TIBC % Saturation Total Bilirubin AST ALT Alkaline Phosphatase Total Creatine Kinase CK-MB (CK-2) CK-MB (CK-2) % Troponin I Total Protein Albumin Globulin Albumin/Globulin Ratio Urine Color Urine Appearance Urine pH Ur Specific [place] Urine Protein Urine Glucose (UA) Urine Ketones Urine Blood Urine Nitrate Urine Bilirubin Urine Urobilinogen Ur Leukocyte Esterase Salicylates Urine Opiates Screen Urine Methadone Screen Acetaminophen Ur Barbiturates Screen Ur Phencyclidine Scrn Ur Amphetamines Screen U Benzodiazepines Scrn U Oth Cocaine Metabols U Cannabinoids Screen Alcohol, Quantitative Blood Type O POSITIVE Blood Type Confirm O POSITIVE Antibody Screen Negative Crossmatch See Detail BBK History Checked No verified bt 11/29/18 11/29/18 09:35 09:35 WBC RBC Hgb Hct MCV MCH MCHC RDW Plt Count MPV Gran % Lymph % (Auto) Mayes % (Auto) Eos % (Auto) Baso % (Auto) Gran # Lymph # (Auto) Mayes # (Auto) Eos # (Auto) Baso # (Auto) Differential Comment Retic Count PT INR APTT D-Dimer, Quantitative Sodium 140 Potassium 4.0 Chloride 112 H Carbon Dioxide 23 Anion Gap 9 L BUN 14 Creatinine 0.7 L Est GFR ( Amer) > 60 Est GFR (Non-Af Amer) > 60 Random Glucose 90 Calcium 8.4 Phosphorus 4.0 Magnesium 2.1 Iron 42 L TIBC 342 % Saturation 12 L Total Bilirubin 0.1 L AST 104 H D ALT 120 H Alkaline Phosphatase 74 Total Creatine Kinase CK-MB (CK-2) CK-MB (CK-2) % Troponin I < 0.01 Total Protein 6.0 Albumin 3.4 Globulin 2.6 Albumin/Globulin Ratio 1.3 Urine Color Urine Appearance Urine pH Ur Specific [place] Urine Protein Urine Glucose (UA) Urine Ketones Urine Blood Urine Nitrate Urine Bilirubin Urine Urobilinogen Ur Leukocyte Esterase Salicylates Urine Opiates Screen Urine Methadone Screen Acetaminophen Ur Barbiturates Screen Ur Phencyclidine Scrn Ur Amphetamines Screen U Benzodiazepines Scrn U Oth Cocaine Metabols U Cannabinoids Screen Alcohol, Quantitative Blood Type Blood Type Confirm Antibody Screen Crossmatch BBK History Checked Attending/Attestation - Attestation I have personally seen and examined this patient.: Yes I have fully participated in the care of the patient.: Yes I have reviewed all pertinent clinical information: Yes Notes (Text): 11/29/18 14:00 I have seen and examined patient with GI fellow. Agree with above documentation with the following additions. In brief, this is a 28 year old male with history of bipolar disorder, polysubstance abuse, recent ETOH intoxication who presented to hospital with suicidal ideations. GI called for evaluation of anemia. He endorses mild epigastric abdominal pain for the past few days along with episodes of dark colored stool last week. He also reports recent nausea and vomiting which have since resolved. He reports recent hospital admission to [facility] [place] following suicide attempt after cutting wrists. He denies NSAID use, no prior endoscopic evaluation. Polysubstance abuse Bipolar disorder Wrist trauma ETOH intoxication, transaminitis Anemia - NPO - Continue to monitor H/H s/p PRBC transfusion - Continue with PPI therapy - ETOH cessation counseling - Follow up psychiatry recommendations given recent suicide attempt - Will plan for EGD today given significant anemia and history of dark colored stool to rule out peptic ulcer disease
[2018-11-29 10:09] LABS: TOTAL IRON BINDING CAPACITY 342 ug/dL (261-462)
[2018-11-29 10:11] LABS: % IRON SATURATION 12 % (20-55); ALB/GLOB RATIO 1.3 (1.1-1.8); ALBUMIN 3.4 g/dL (3.0-4.8); ALT/SGPT 120 U/L (7-56); AST/SGOT 104 U/L (17-59); BLOOD UREA NITROGEN 14 mg/dL (7-21); CALCIUM 8.4 mg/dL (8.4-10.5); GFR NON-AFRICAN AMERICAN > 60; IRON 42 ug/dL (45-180)
[2018-11-29 10:14] LABS: TROPONIN I < 0.01 ng/mL
--- NOTE | 2018-11-29 10:22 | RAD ---
Date of service: 11/28/2018 HISTORY: PES COMPARISON: 11/15/2018 FINDINGS: LUNGS: No active pulmonary disease. PLEURA: No significant pleural effusion identified, no pneumothorax apparent. CARDIOVASCULAR: No aortic atherosclerotic calcification present. Normal cardiac size. No pulmonary vascular congestion. OSSEOUS STRUCTURES: No significant abnormalities. VISUALIZED UPPER ABDOMEN: Normal. OTHER FINDINGS: None. IMPRESSION: No active disease.
[2018-11-29] MEDS ORDERED: Propofol 10 mg/ml Inj (20 ML) ONE (13:29)
[2018-11-29] MEDS ORDERED: Midazolam 2 MG/2 ML VIAL ONE (13:29)
--- NOTE | 2018-11-29 14:08 | CP.PCM.PN ---
Subjective - Date & Time of Evaluation Date of Evaluation: 11/29/18 Time of Evaluation: 14:06 - Subjective Subjective: Patient s/p EGD today showing duodenal erosions, gastritis. No features of active bleeding noted on examination. Objective - Vital Signs/Intake and Output Vital Signs (last 24 hours): Temp Pulse Resp BP Pulse Ox 98.1 F 74 18 124/80 99 11/29/18 13:00 11/29/18 13:00 11/29/18 13:00 11/29/18 13:00 11/29/18 13:00 Intake and Output: 11/29/18 11/29/18 06:59 18:59 Intake Total 474 325 Balance 474 325 - Medications Medications: Current Medications Fluoxetine HCl (Prozac) 30 mg PO BID [facility] Last Admin: 11/29/18 11:19 Dose: 30 mg Gabapentin (Neurontin) 300 mg PO TID [facility]; Protocol Last Admin: 11/29/18 11:18 Dose: 300 mg Sodium Chloride (Sodium Chloride 0.9%) 1,000 mls @ 100 mls/hr IV .Q10H [facility] Stop: 11/29/18 16:02 Lorazepam (Ativan) 2 mg IVP Q2H PRN; Protocol PRN Reason: Symptoms of alcohol withdrawl Lorazepam (Ativan) 2 mg IVP Q6H [facility]; Protocol Last Admin: 11/29/18 08:35 Dose: 2 mg Ondansetron HCl (Zofran Inj) 4 mg IVP Q4H PRN PRN Reason: Nausea/Vomiting Pantoprazole Sodium (Protonix Inj) 40 mg IVP Q12 [facility] Last Admin: 11/29/18 11:18 Dose: 40 mg Trazodone HCl (Desyrel) 100 mg PO HS [facility] - Labs Labs: 11/29/18 09:35 11/29/18 09:35 PT 9.3 SECONDS (9.4-12.5) L 11/28/18 23:10 INR 0.82 11/28/18 23:10 APTT 24.8 Seconds (25.1-36.5) L 11/28/18 23:10 Assessment and Plan - Assessment and Plan (Free Text) Assessment: Polysubstance abuse Anemia Bipolar disorder Plan: - Advance diet as tolerated - Continue to monitor H/H - Continue with PPI therapy - Follow up EGD biopsy results - ETOH cessation counseling - No further planned GI intervention at this time, patient would benefit from additional outpatient follow up. Will sign off case, please reconsult as necessary, thank you.
[2018-11-29] MEDS ORDERED: Sodium Chloride 0.9% 1,000 ML IV SCH (14:15)
[2018-11-29 16:14] LABS: FERRITIN 31.6 ng/mL
[2018-11-29 16:45] LABS: FOLATE 13.7 ng/mL
[2018-11-29 18:08] VITALS: RESP 20
--- NOTE | 2018-11-29 18:35 | CON ---
DATE: 11/29/2018 HISTORY OF PRESENT ILLNESS: The patient is a 28-year-old male with a history of depression, anxiety, self reported ADHD, severe alcohol dependency with multiple admissions in the medical floor for alcohol withdrawal, substance induced mood disorder and chronic noncompliance with followup appointments in the medication, chronic resistance in inpatient rehab, in numerous psychiatric admissions today at [facility], most recently on 10/31/2018 to 11/09/2018, history of involuntary commitment at [facility] for the past year due to impulsive suicidal behavior, who was recently admitted to the medical floor on 11/29/2018 after he presented to the ER. On 11/28/2018, complaining of alcohol withdrawal and depression. The patient was also noted with to have symptomatic anemia, and was admitted for treatment. Psychiatry was called due to patient's reports of depression, recent suicide attempt a couple of days ago and alcohol withdrawal. I am very familiar with the patient and the patient has seen me for one intake on 11/19/2018 at [facility]. His initial outpatient provider was scheduled for 11/15/2018, however, he collapsed in the waiting room and need to be evaluated in the ER. Apparently, the patient was in alcohol withdrawal. He was given Ativan and banana bag in the ER and the head CT, CMP and CBC were within normal limits at bedtime. The patient was then medically hospitalized at [facility] from 11/17/2018 to 11/18/2018 for alcohol withdrawal and possible withdrawal seizures. When I met with him on 11/19/2018, he reported he picked up the refills of his medications Neurontin, Prozac, and trazodone, on 11/18/2018. The patient also reported that he had 2 glasses of wine and he was trying to stay off hard alcohol that decreases dependency. The patient was to followup with this provider in then just 3 days time, however, during that time on 11/20/2018, the patient was not passed out outside and when he did followup on 11/22/2018, he was referred to attend detox before [facility]. [facility]. I called the patient on 11/27/2018, just 2 days ago, I spoke with him by phone and apparently he is in [facility] being treated for a attempted suicide by cutting his wrist. The patient required proximally 12 stitches at that time. He was also treated for alcohol withdrawal at [facility]. However, the patient felt like that he was being discharged prematurely from [facility] one at more times for detox, and has his pain addressed from his laceration. They discharged him anyway on 11/27/2018. Subsequently, the patient presented to [facility] ER in 11/28/2018 with aforementioned complaints. I met with him at bedside and he is going through alcohol withdrawal, he appears to be how to control and the patient's impulse control reports at this time. He is depressed. He is overwhelmed and he is clearly unpredictable and I behaviors are escalating. The patient currently denies having suicidal thoughts, however, he is withdrawing and was actually starting psychiatric medications, and there is no evidence of perceptual disturbances, he has been in therapy, he is still on the medical floor. RELEVANT PSYCHIATRIC MEDICATIONS: The patient was not given any psychiatric medications on the unit except for Ativan 2 mg every 6 hours scheduled and 2 mg IV every 2 hours p.r.n. PSYCHIATRIC HISTORY: The patient has 5 admissions to be on [facility] in the past year as well as involuntary commitment at [facility], most recent admission was 11/03/2018 to 11/09/2018. The patient received following medications which were called and intubated on 11/09/2018, 15 days with 1 refill, Prozac 30 mg twice daily, Neurontin 300 mg t.i.d., Vistaril 50 mg every 8 hours p.r.n., trazodone 100 mg at bedtime, Ativan 1 mg every 12, 3 doses. When the patient presented on 11/19/2018, he was told to continue Prozac, trazodone, and gabapentin, and I also provided him 14 tablets of Ativan and provided a slow taper for him at that time for a period of 4 days. SOCIAL HISTORY: The patient was raised with friends and family from childhood. The patient has a history of cocaine, Xanax, and marijuana use, however, alcohol dependency is the main problem in the past 3 years. So, he was from breakup with his boyfriend, Jareth approximately 2 years ago and has used alcohol to cope with it. Now, he is over his ex-boyfriend, but has debilitating alcohol dependency. ASSESSMENT: Alcohol dependency severe, alcohol-induced anxiety disorder, alcohol-induced mood disorder, alcohol withdrawal, major depressive disorder, generalized anxiety disorder. RECOMMENDATIONS: 1. We will treat patient's alcohol withdrawal and anxiety with current medication already started by medical team including Ativan IV every 6 hours scheduled and 2 mg IV every 2 hours p.r.n. 2. Continue Prozac 30 mg twice daily for anxiety and depression, continue trazodone 100 mg at bedtime for depression and insomnia, and we will continue Neurontin 300 mg t.i.d. for anxiety. 3. Psychiatry continues to followup with him on the medical floor, however, this provider has concerns, although the patient denies that he directly wants to harm himself, he is danger to himself indirectly with his alcohol use impulsive suicide or gestures despite all the negative consequences of his use. I strongly recommend the patient to be referred directly to inpatient rehab or at least inpatient's psychiatric unit and then to inpatient rehab if the patient cannot control his own use. If the patient cannot be followed up inpatient after he is medically cleared, he should be referred to a intensive outpatient daily dual diagnosis program. Regardless, psychiatry continues followup and ensure he has the optimal disposition and consideration of severity of dependency and behaviors. Elisabeth Mi MD [facility] # [id number]
[2018-11-30 06:37] LABS: BASO # 0.03 K/mm3 (0.0-2.0); BASO % 0.4 % (0.0-3.0); EOS # 0.2 (0.0-0.7); EOS % 2.2 % (1.5-5.0); GRAN # 3.7 (1.4-6.5); GRAN % 50.2 % (50.0-68.0); HEMOGLOBIN 8.3 g/dL (14.0-18.0); LYMPH # 3.1 (1.2-3.4); LYMPH % 41.9 % (22.0-35.0); MEAN CELL VOLUME 96.6 fl (80.0-105.0); MEAN PLATELET VOLUME 9.9 fl (7.0-11.0); MONO # 0.4 (0.1-0.6); MONO % 5.3 % (1.0-6.0); RBC 2.68 10^6/uL (3.5-6.1); RED CELL DISTRIBUTION WIDTH 16.2 % (11.5-14.5); WHITE BLOOD COUNT 7.4 10^3/uL (4.5-11.0)
[2018-11-30 07:22] LABS: ALB/GLOB RATIO 1.3 (1.1-1.8); ALBUMIN 3.3 g/dL (3.0-4.8); ALT/SGPT 98 U/L (7-56); AST/SGOT 73 U/L (17-59); BLOOD UREA NITROGEN 18 mg/dL (7-21); CALCIUM 8.8 mg/dL (8.4-10.5); GFR NON-AFRICAN AMERICAN > 60
[2018-11-30] MEDS ORDERED: Multivitamin Therapeutic Tab PO SCH (08:00)
--- NOTE | 2018-11-30 08:43 | CT ---
Date of service: 11/30/2018 PROCEDURE: CT Abdomen and Pelvis without intravenous contrast HISTORY: please evaluate for bleed COMPARISON: 10/25/2014 TECHNIQUE: Without contrast.. Contrast dose: Radiation dose: Total exam DLP = 798.62 mGy-cm. This CT exam was performed using one or more of the following dose reduction techniques: Automated exposure control, adjustment of the mA and/or kV according to patient size, and/or use of iterative reconstruction technique. FINDINGS: LOWER THORAX: Unremarkable. LIVER: Unremarkable. No gross lesion or ductal dilatation. GALLBLADDER AND BILE DUCTS: Unremarkable. PANCREAS: There is severe atrophy and fatty replacement of the pancreas. SPLEEN: Unremarkable. ADRENALS: Unremarkable. No mass. KIDNEYS AND URETERS: Unremarkable. No hydronephrosis. No solid mass. VASCULATURE: Unremarkable. No aortic aneurysm. No aortic atherosclerotic calcification or mural plaque present. BOWEL: Unremarkable. No obstruction. No gross mural thickening. APPENDIX: Unremarkable. Normal appendix. PERITONEUM: Unremarkable. No free fluid. No free air. LYMPH NODES: Unremarkable. No enlarged lymph nodes. BLADDER: Unremarkable. REPRODUCTIVE: Unremarkable. BONES: No acute fracture. OTHER FINDINGS: None. IMPRESSION: Severe complete atrophy of the pancreas with fatty infiltration. No acute intra-abdominal findings.
[2018-11-30] MEDS ORDERED: Fluticasone Nasal 50 mcg/Spray NS SCH (10:00)
[2018-11-30] MEDS ORDERED: Oxycodone/Acetaminophen 5/325 mg Tab PO ONE (11:54)
--- NOTE | 2018-11-30 13:41 | CP.PCM.DIS ---
<Eleanor Sanchez - Last Filed: 11/30/18 15:47> Provider - Provider Date of Admission: 11/29/18 01:28 Attending physician: Marlin Valverde DO Consults: 11/29/18 01:46 Psychiatry Consult Stat Comment: Consulting Provider: Elisabeth Mi Consulting Physician: Elisabeth Mi Reason for Consult: ETOH withdrawal with SI 11/29/18 04:45 Diabetic Education Referral Routine Comment: Physician Instructions: Reason For Exam: admission assessment 11/29/18 04:53 Nursing Referral for Wound Care Routine Comment: laceration L arm w sutures Physician Instructions: Reason For Exam: admission assessment 11/29/18 05:02 Social Work Referral Routine Comment: admission assessment Physician Instructions: Reason For Exam: otoniel score 8 Time Spent in preparation of Discharge (in minutes): 45 Diagnosis - Discharge Diagnosis (1) Suicidal ideation Status: Acute (2) Alcohol intoxication Status: Acute Priority: High Hospital Course - Lab Results Lab Results: Most Recent Lab Values WBC 7.4 10^3/uL (4.5-11.0) 11/30/18 06:15 RBC 2.68 10^6/uL (3.5-6.1) L 11/30/18 06:15 Hgb 8.3 g/dL (14.0-18.0) L 11/30/18 06:15 Hct 25.9 % (42.0-52.0) L 11/30/18 06:15 MCV 96.6 fl (80.0-105.0) 11/30/18 06:15 MCH 31.0 pg (25.0-35.0) 11/30/18 06:15 MCHC 32.0 g/dl (31.0-37.0) 11/30/18 06:15 RDW 16.2 % (11.5-14.5) H 11/30/18 06:15 Plt Count 204 10^3/uL (120.0-450.0) 11/30/18 06:15 MPV 9.9 fl (7.0-11.0) 11/30/18 06:15 Gran % 50.2 % (50.0-68.0) 11/30/18 06:15 Lymph % (Auto) 41.9 % (22.0-35.0) H 11/30/18 06:15 [place] % (Auto) 5.3 % (1.0-6.0) 11/30/18 06:15 Eos % (Auto) 2.2 % (1.5-5.0) 11/30/18 06:15 Baso % (Auto) 0.4 % (0.0-3.0) 11/30/18 06:15 Gran # 3.70 (1.4-6.5) 11/30/18 06:15 Lymph # (Auto) 3.1 (1.2-3.4) 11/30/18 06:15 [place] # (Auto) 0.4 (0.1-0.6) 11/30/18 06:15 Eos # (Auto) 0.2 (0.0-0.7) 11/30/18 06:15 Baso # (Auto) 0.03 K/mm3 (0.0-2.0) 11/30/18 06:15 Differential Comment See pathology report 11/29/18 09:35 Retic Count 5.26 % (0.5-1.5) H 11/29/18 09:35 PT 9.3 SECONDS (9.4-12.5) L 11/28/18 23:10 INR 0.82 11/28/18 23:10 APTT 24.8 Seconds (25.1-36.5) L 11/28/18 23:10 D-Dimer, Quantitative < 200 ng/mlDDU (0-243) 11/28/18 23:10 Sodium 140 mmol/L (132-148) 11/30/18 06:15 Potassium 3.8 mmol/L (3.6-5.0) 11/30/18 06:15 Chloride 110 mmol/L (98-107) H 11/30/18 06:15 Carbon Dioxide 26 mmol/L (21-33) 11/30/18 06:15 Anion Gap 8 (10-20) L 11/30/18 06:15 BUN 18 mg/dL (7-21) 11/30/18 06:15 Creatinine 0.8 mg/dl (0.8-1.5) 11/30/18 06:15 Est GFR ( Amer) > 60 11/30/18 06:15 Est GFR (Non-Af Amer) > 60 11/30/18 06:15 Random Glucose 105 mg/dL (70-110) 11/30/18 06:15 Calcium 8.8 mg/dL (8.4-10.5) 11/30/18 06:15 Phosphorus 4.4 mg/dL (2.5-4.5) 11/30/18 06:15 Magnesium 2.2 mg/dL (1.7-2.2) 11/30/18 06:15 Iron 42 ug/dL (45-180) L 11/29/18 09:35 TIBC 342 ug/dL (261-462) 11/29/18 09:35 % Saturation 12 % (20-55) L 11/29/18 09:35 Transferrin 285.81 mg/dL (206-381) 11/29/18 09:35 Ferritin 31.6 ng/mL 11/29/18 09:35 Total Bilirubin 0.2 mg/dL (0.2-1.3) 11/30/18 06:15 AST 73 U/L (17-59) H D 11/30/18 06:15 ALT 98 U/L (7-56) H 11/30/18 06:15 Alkaline Phosphatase 73 U/L (38-126) 11/30/18 06:15 Total Creatine Kinase 287 U/L (35-230) H 11/28/18 23:10 CK-MB (CK-2) 1.3 ng/mL (0.0-3.6) 11/28/18 23:10 CK-MB (CK-2) % Cancelled 11/28/18 23:10 Troponin I < 0.01 ng/mL 11/29/18 09:35 Total Protein 5.8 g/dL (5.8-8.3) 11/30/18 06:15 Albumin 3.3 g/dL (3.0-4.8) 11/30/18 06:15 Globulin 2.5 gm/dL 11/30/18 06:15 Albumin/Globulin Ratio 1.3 (1.1-1.8) 11/30/18 06:15 Vitamin B12 648 pg/mL (239-931) 11/29/18 09:35 Folate 13.7 ng/mL 11/29/18 09:35 Urine Color Yellow (YELLOW) 11/28/18 23:25 Urine Appearance Clear (CLEAR) 11/28/18 23:25 Urine pH 6.5 (4.7-8.0) 11/28/18 23:25 Ur Specific [place] 1.015 (1.005-1.035) 11/28/18 23:25 Urine Protein Negative mg/dL (<30 mg/dL) 11/28/18 23:25 Urine Glucose (UA) Negative mg/dL (NEGATIVE) 11/28/18 23:25 Urine Ketones Negative mg/dL (NEGATIVE) 11/28/18 23:25 Urine Blood Negative (NEGATIVE) 11/28/18 23:25 Urine Nitrate Negative (NEGATIVE) 11/28/18 23:25 Urine Bilirubin Negative (NEGATIVE) 11/28/18 23:25 Urine Urobilinogen 0.2 E.U./dL (<1 E.U./dL) 11/28/18 23:25 Ur Leukocyte Esterase Negative Kiersten/uL (NEGATIVE) 11/28/18 23:25 Salicylates < 1 mg/dL (2.0-20.0) L 11/28/18 23:10 Urine Opiates Screen Negative (NEGATIVE) 11/28/18 23:25 Urine Methadone Screen Negative (NEGATIVE) 11/28/18 23:25 Acetaminophen < 10.0 ug/ml (10.0-20.0) L 11/28/18 23:10 Ur Barbiturates Screen Negative (NEGATIVE) 11/28/18 23:25 Ur Phencyclidine Scrn Negative (NEGATIVE) 11/28/18 23:25 Ur Amphetamines Screen Negative (NEGATIVE) 11/28/18 23:25 U Benzodiazepines Scrn Positive (NEGATIVE) H 11/28/18 23:25 U Oth Cocaine Metabols Negative (NEGATIVE) 11/28/18 23:25 U Cannabinoids Screen Positive (NEGATIVE) H 11/28/18 23:25 Alcohol, Quantitative 208 mg/dL (0-10) H 11/28/18 23:10 Blood Type O POSITIVE 11/29/18 01:07 Blood Type Confirm O POSITIVE 11/29/18 01:49 Antibody Screen Negative 11/29/18 01:07 Crossmatch See Detail 11/29/18 01:07 BBK History Checked No verified bt 11/29/18 01:07 - Hospital Course Hospital Course: Upon Admission: Patient is a 28 year old male with past medical history of polysubstance abuse, alcohol abuse, bipolar disorder, depression, anxiety, and seizures, presenting with alcohol withdrawal symptoms and suicidal ideation. Patient has been admitted multiple times to [facility] [place] for alcohol withdrawal and was recently admitted at [facility] and discharged yesterday after evaluation of suicidal attempt that occurred 3 days ago. Patient states he slit his left wrist horizontally with a kitchen knife and had it sutured at [facility]. Patient state that he feels like he is in withdrawal and that his last drink was 1 pint of vodka in the evening. Patient admits to drink 2-3 pints of vodka daily and started drinking when he was 17 years old. Patient admits to some chest pain secondary to his anxiety. He also admits to be having some shortness of breath that started today. Patient admits to have suicidal ideation but no homicidal ideation at this time. Patient denies any fever, chills, dizziness, nausea, vomiting, diarrhea, or urinary symptoms. Hospital Course: Pt is being treated for EtOH withdrawl and suicidal ideation. Pt is placed on a 1:1 to ensure pt safety and psych is consulted. Pt is also noted to be anemic and anemia work up is initiated. Pt is noted to have iron deficiency anemia, with adequate marrow response and GI is consulted to ensure that there is no bleed. GI scoped the pt and noted only gastritis with duodenal erosions. Pt is given protonix IV BID. He is also given a CT scan to r/o retroperitoneal bleed. Pt is on CIWA protocol for Etoh withdrawal and he is noted to only require 1 extra PRN dose in addition to scheduled ativan doses, CIWA remains at 1. Pt is then seen by psych and recommendation is made per psych team to have pt transfer to in psych care. Pt is informed of the medical plan for d/c to psych and the pt expresses understanding and agreement with the medical plan for d/c. All of the pts questions were addressed prior to d/c. Further details given in chart. Upon D/c: Pt was given the following instructions upon d/c from medical service: - Please follow up with your primary care doctor within a week of discharge from the hospital. - You were noted to have some low blood levels, upon follow up with your primary care doctor please follow up with some routine lab work to continue to monitor it. - Please adhere to any additional recommendations made by the psychiatry team during your inpatient stay. - Please continue to take home medications as prescribed. - Please stay away from alcohol - You had a endoscopy which showed some erosions in your small intestine. Please take your new medication protonix as directed. - Please take your folate, multi-vitamin and thiamine as directed. - We will follow up with you in regards to the biopsy results taken during your endoscopy - If you have any new or worsening symptoms please return to the emergency department. Discharge Exam - Head Exam Head Exam: ATRAUMATIC, NORMAL INSPECTION - Eye Exam Eye Exam: EOMI, Normal appearance, PERRL - Respiratory Exam Respiratory Exam: Clear to PA & Lateral, NORMAL BREATHING PATTERN, UNREMARKABLE. absent: Accessory Muscle Use, Rales, Rhonchi, Wheezes, Respiratory Distress, Stridor - Cardiovascular Exam Cardiovascular Exam: RRR, +S1, +S2. absent: Gallop, Rubs, Systolic Murmur - GI/Abdominal Exam GI & Abdominal Exam: Normal Bowel Sounds, Soft, Unremarkable. absent: Distended, Firm, Guarding, Tenderness - Extremities Exam Additional comments: Pt has 10cm linear laceration on flexor surface of L forearm. Laceration is sutured and the site is clean, and dry with no noted discharge, or erythema. - Back Exam Back exam: NORMAL INSPECTION. absent: CVA tenderness (L), CVA tenderness (R) - Neurological Exam Neurological exam: Alert, Oriented x3 - Psychiatric Exam Psychiatric exam: Depressed - Skin Skin Exam: Dry, Normal Color, Warm Discharge Plan - Follow Up Plan Condition: STABLE Disposition: DISCHARGE TO PSYCH HOSPITAL Instructions: Depression, Adult (DC), Alcohol Withdrawal (DC), Alcohol Abuse and Alcoholism (DC), Suicide Prevention for Adults (DC) Additional Instructions: - Please follow up with your primary care doctor within a week of discharge from the hospital. - You were noted to have some low blood levels, upon follow up with your primary care doctor please follow up with some routine lab work to continue to monitor it. - Please adhere to any additional recommendations made by the psychiatry team during your inpatient stay. - Please continue to take home medications as prescribed. - Please stay away from alcohol - You had a endoscopy which showed some erosions in your small intestine. Please take your new medication protonix as directed. - Please take your folate, multi-vitamin and thiamine as directed. - We will follow up with you in regards to the biopsy results taken during your endoscopy - If you have any new or worsening symptoms please return to the emergency department. <AashishKip - Last Filed: 12/01/18 14:18> Provider - Provider Date of Admission: 11/29/18 01:28 Attending physician: Marlin Valverde DO Consults: 11/29/18 01:46 Psychiatry Consult Stat Comment: Consulting Provider: Elisabeth Mi Consulting Physician: Elisabeth Mi Reason for Consult: ETOH withdrawal with SI 11/29/18 04:45 Diabetic Education Referral Routine Comment: Physician Instructions: Reason For Exam: admission assessment 11/29/18 04:53 Nursing Referral for Wound Care Routine Comment: laceration L arm w sutures Physician Instructions: Reason For Exam: admission assessment 11/29/18 05:02 Social Work Referral Routine Comment: admission assessment Physician Instructions: Reason For Exam: otoniel score 8 Hospital Course - Lab Results Lab Results: Most Recent Lab Values WBC 7.4 10^3/uL (4.5-11.0) 11/30/18 06:15 RBC 2.68 10^6/uL (3.5-6.1) L 11/30/18 06:15 Hgb 8.3 g/dL (14.0-18.0) L 11/30/18 06:15 Hct 25.9 % (42.0-52.0) L 11/30/18 06:15 MCV 96.6 fl (80.0-105.0) 11/30/18 06:15 MCH 31.0 pg (25.0-35.0) 11/30/18 06:15 MCHC 32.0 g/dl (31.0-37.0) 11/30/18 06:15 RDW 16.2 % (11.5-14.5) H 11/30/18 06:15 Plt Count 204 10^3/uL (120.0-450.0) 11/30/18 06:15 MPV 9.9 fl (7.0-11.0) 11/30/18 06:15 Gran % 50.2 % (50.0-68.0) 11/30/18 06:15 Lymph % (Auto) 41.9 % (22.0-35.0) H 11/30/18 06:15 [place] % (Auto) 5.3 % (1.0-6.0) 11/30/18 06:15 Eos % (Auto) 2.2 % (1.5-5.0) 11/30/18 06:15 Baso % (Auto) 0.4 % (0.0-3.0) 11/30/18 06:15 Gran # 3.70 (1.4-6.5) 11/30/18 06:15 Lymph # (Auto) 3.1 (1.2-3.4) 11/30/18 06:15 [place] # (Auto) 0.4 (0.1-0.6) 11/30/18 06:15 Eos # (Auto) 0.2 (0.0-0.7) 11/30/18 06:15 Baso # (Auto) 0.03 K/mm3 (0.0-2.0) 11/30/18 06:15 Differential Comment See pathology report 11/29/18 09:35 Retic Count 5.26 % (0.5-1.5) H 11/29/18 09:35 PT 9.3 SECONDS (9.4-12.5) L 11/28/18 23:10 INR 0.82 11/28/18 23:10 APTT 24.8 Seconds (25.1-36.5) L 11/28/18 23:10 D-Dimer, Quantitative < 200 ng/mlDDU (0-243) 11/28/18 23:10 Sodium 140 mmol/L (132-148) 11/30/18 06:15 Potassium 3.8 mmol/L (3.6-5.0) 11/30/18 06:15 Chloride 110 mmol/L (98-107) H 11/30/18 06:15 Carbon Dioxide 26 mmol/L (21-33) 11/30/18 06:15 Anion Gap 8 (10-20) L 11/30/18 06:15 BUN 18 mg/dL (7-21) 11/30/18 06:15 Creatinine 0.8 mg/dl (0.8-1.5) 11/30/18 06:15 Est GFR ( Amer) > 60 11/30/18 06:15 Est GFR (Non-Af Amer) > 60 11/30/18 06:15 Random Glucose 105 mg/dL (70-110) 11/30/18 06:15 Calcium 8.8 mg/dL (8.4-10.5) 11/30/18 06:15 Phosphorus 4.4 mg/dL (2.5-4.5) 11/30/18 06:15 Magnesium 2.2 mg/dL (1.7-2.2) 11/30/18 06:15 Iron 42 ug/dL (45-180) L 11/29/18 09:35 TIBC 342 ug/dL (261-462) 11/29/18 09:35 % Saturation 12 % (20-55) L 11/29/18 09:35 Transferrin 285.81 mg/dL (206-381) 11/29/18 09:35 Ferritin 31.6 ng/mL 11/29/18 09:35 Total Bilirubin 0.2 mg/dL (0.2-1.3) 11/30/18 06:15 AST 73 U/L (17-59) H D 11/30/18 06:15 ALT 98 U/L (7-56) H 11/30/18 06:15 Alkaline Phosphatase 73 U/L (38-126) 11/30/18 06:15 Total Creatine Kinase 287 U/L (35-230) H 11/28/18 23:10 CK-MB (CK-2) 1.3 ng/mL (0.0-3.6) 11/28/18 23:10 CK-MB (CK-2) % Cancelled 11/28/18 23:10 Troponin I < 0.01 ng/mL 11/29/18 09:35 Total Protein 5.8 g/dL (5.8-8.3) 11/30/18 06:15 Albumin 3.3 g/dL (3.0-4.8) 11/30/18 06:15 Globulin 2.5 gm/dL 11/30/18 06:15 Albumin/Globulin Ratio 1.3 (1.1-1.8) 11/30/18 06:15 Vitamin B12 648 pg/mL (239-931) 11/29/18 09:35 Folate 13.7 ng/mL 11/29/18 09:35 Urine Color Yellow (YELLOW) 11/28/18 23:25 Urine Appearance Clear (CLEAR) 11/28/18 23:25 Urine pH 6.5 (4.7-8.0) 11/28/18 23:25 Ur Specific [place] 1.015 (1.005-1.035) 11/28/18 23:25 Urine Protein Negative mg/dL (<30 mg/dL) 11/28/18 23:25 Urine Glucose (UA) Negative mg/dL (NEGATIVE) 11/28/18 23:25 Urine Ketones Negative mg/dL (NEGATIVE) 11/28/18 23:25 Urine Blood Negative (NEGATIVE) 11/28/18 23:25 Urine Nitrate Negative (NEGATIVE) 11/28/18 23:25 Urine Bilirubin Negative (NEGATIVE) 11/28/18 23:25 Urine Urobilinogen 0.2 E.U./dL (<1 E.U./dL) 11/28/18 23:25 Ur Leukocyte Esterase Negative Kiersten/uL (NEGATIVE) 11/28/18 23:25 Salicylates < 1 mg/dL (2.0-20.0) L 11/28/18 23:10 Urine Opiates Screen Negative (NEGATIVE) 11/28/18 23:25 Urine Methadone Screen Negative (NEGATIVE) 11/28/18 23:25 Acetaminophen < 10.0 ug/ml (10.0-20.0) L 11/28/18 23:10 Ur Barbiturates Screen Negative (NEGATIVE) 11/28/18 23:25 Ur Phencyclidine Scrn Negative (NEGATIVE) 11/28/18 23:25 Ur Amphetamines Screen Negative (NEGATIVE) 11/28/18 23:25 U Benzodiazepines Scrn Positive (NEGATIVE) H 11/28/18 23:25 U Oth Cocaine Metabols Negative (NEGATIVE) 11/28/18 23:25 U Cannabinoids Screen Positive (NEGATIVE) H 11/28/18 23:25 Alcohol, Quantitative 208 mg/dL (0-10) H 11/28/18 23:10 Blood Type O POSITIVE 11/29/18 01:07 Blood Type Confirm O POSITIVE 11/29/18 01:49 Antibody Screen Negative 11/29/18 01:07 Crossmatch See Detail 11/29/18 01:07 BBK History Checked No verified bt 11/29/18 01:07 Attending/Attestation - Attestation I have personally seen and examined this patient.: Yes I have fully participated in the care of the patient.: Yes I have reviewed all pertinent clinical information, including history, physical exam and plan: Yes Notes (Text): 12/01/18 14:10 Medical record note made by the resident after discussion with my direction and input after the patient was personally seen and examined by me. I have reviewed the chart and agree that the record accurately reflects by personal performance of the history, physical exam, data review, and medical decision-making, in the course for the patient. I have also personally directed the plan of care. 28 year old male with past medical history of polysubstance abuse, alcohol abuse, bipolar disorder, depression, anxiety, and seizures, presenting with alcohol withdrawal symptoms and suicidal ideation. Patient has been admitted multiple times to [facility] [place] for alcohol withdrawal and was recently admitted at [facility] and discharged yesterday after evaluation of suicidal attempt that occurred 3 days ago. Patient states he slit his left wrist horizontally with a kitchen knife and had it sutured at [facility]. Pt is being treated for EtOH withdrawl and suicidal ideation. Patient is also noted to be anemic He was evaluated by GI and underwent EGD that showed gastritis with duodenal erosions. CT scan of abdomena nd Pelvis was negative for retroperitoneal bleed. Patient alcohol withdrawal are improved. He was evaluated by Psychiatry and will be discharged to Psychiatry for further management. Prognosis is guarded due to non compliance and ongoing alcohol and substance abuse.
[2018-11-30 13:55] VITALS: BP 129/91; PULSE 76; TEMP 98.5; O2SAT 98
[2018-11-30] MEDS ORDERED: Pantoprazole 40 mg EC Tab PO SCH (16:00)
--- NOTE | 2018-11-30 18:40 | PN ---
DATE: 11/30/2018 SUBJECTIVE: The patient was followed up today. Notes reviewed. Dr. Mi notes reviewed. Shortly, the patient is 28-year-old male with history of depression and anxiety, self-reported history of ADHD, severe alcohol use disorder, multiple admissions to the medical floor site for alcohol withdrawal syndrome, as well as multiple psychiatric admissions for evaluation of depressive symptoms and suicidal attempts. The patient was admitted on the medical side because the patient's sister was concerned that the patient overdosed on pain killers. Prior to that, the patient was admitted on [facility] status post self-inflicted laceration of left forearm which required reconstructive surgery as well as sutures as well as the patient required to have physical therapy in order to make sure that he would not have residual symptoms of immobility. The patient was cleared from the psychiatric team there and the patient came to [facility] for evaluation of possible overdose on medication. This copywriter is quite familiar with this patient from multiple consultation services as well as psychiatric admissions. From this copywriter observation, the patient is not doing so well. The patient is going downhill each and every time the patient comes with more severe symptoms and this time the patient required to have reconstructive surgery for his left arm self-inflicted injury. The patient presented to be superficially cooperative. The patient is unreliable historian. The patient was minimizing the all of the symptoms, but fact are the patient cut his wrist. The patient had admission to the medical side, had surgery prior to coming to the hospital. The patient was taking extra pills of pain medications and family was concerned about the patient's safety. This copywriter would not take the chance and discharge the patient from the medical side. The patient was offered admission to the psychiatric inpatient unit for further observation and stabilization. The patient agreed with that plan reluctantly. The patient does not want to go to inpatient rehab, but this copywriter has concerns about the patient's safety and impulsive act. [facility] admission was on 11/29/2018. This time, the patient was admitted to medical [facility] for anemia as well as possible depressive symptoms, as well as possible overdose on medication. At present moment, the patient might benefit from observation and stabilization. PHYSICAL EXAMINATION: VITAL SIGNS: Vital signs are stable. Temperature 98.5, pulse is 76, blood pressure 129/91, respiration 26, and saturation is 98. MENTAL STATUS EXAM: The patient was minimizing, smiling inappropriately thinking that it is a joke. The patient described his mood "I was not trying to kill myself, I just wanted to harm myself. I did not know that knife was very sharp, whenever I realize what I have done, I called 911." Thought process coherent and goal directed. Thought content, the patient denied visual, auditory or tactile hallucinations. Denied paranoid ideation. The patient seems to be having poor insight and judgment are also poor. Impulses are not predictable. LABORATORY DATA: Labs reviewed. Hemoglobin and hematocrit 8.3 and 25.9. Chemistry reviewed. Toxicology reviewed, was positive for alcohol at the time of admission was as well as cannabis as well as benzodiazepines positive. MEDICATIONS: Medications reviewed, Prozac 30 mg twice a day, Flonase, folic acid, Neurontin 300 mg three times day, Ativan 2 mg IV push every 2 hours. as needed as well as 1 mg IV push every 6 hours scheduled, multivitamins, Nicoderm, Zofran, Protonix, thiamine and trazodone. IMPRESSION: Per history, mood spectrum disorder as well as alcohol use disorder, cannabis abuse, questionable attention deficit hyperactivity disorder. PLAN: We will transfer the patient to the psychiatric inpatient unit for further evaluation and observation. Rehab was offered, but the patient was not interested. This copywriter has highest concerns about the patient's safety and we will call for physical therapy. Medical consultation will be obtained. Should you have any questions, give me a call back. Thank you very much for letting me participate in care of your patient. Hollie Orellana MD
== END 2018-11-30 18:00 | DRG 773 ==
LOC: ED 22:47 → ERH 11-29 01:28 → 2RNO 11-29 02:37
PROVIDERS: ADMIT Hospitalist; ATTEND Hospitalist
PROC: 0DB68ZX Excision of Stomach, Via Natural or Artificial Opening Endoscopic, Diagnostic (ICD-10-PCS; principal; 2018-11-29 12:30)
DX: F10.239 Alcohol dependence with withdrawal, unspecified (principal); F11.10 Opioid abuse, uncomplicated; R45.851 Suicidal ideations; K26.9 Duodenal ulcer, unspecified as acute or chronic, without hemorrhage or perforation; D50.9 Iron deficiency anemia, unspecified; F14.10 Cocaine abuse, uncomplicated; F10.229 Alcohol dependence with intoxication, unspecified; F10.24 Alcohol dependence with alcohol-induced mood disorder; F10.280 Alcohol dependence with alcohol-induced anxiety disorder; F17.210 Nicotine dependence, cigarettes, uncomplicated; F12.10 Cannabis abuse, uncomplicated; F31.9 Bipolar disorder, unspecified; K29.70 Gastritis, unspecified, without bleeding; F41.1 Generalized anxiety disorder; K59.00 Constipation, unspecified; Y90.7 Blood alcohol level of 200-239 mg/100 ml; Z91.5 Personal history of self-harm; Z91.19 Patient's noncompliance with other medical treatment and regimen

== ENCOUNTER 2018-11-30 18:10 | Inpatient (IN) | payer MEDICAID, OTHER ==
[2018-11-30] MEDS ORDERED: Alum-Mag Hydrox-Simethicone Susp (30 mL) PO PRN (18:59)
[2018-11-30] MEDS ORDERED: Magnesium Hydroxide Susp 30 ml UD PO PRN (19:00)
--- NOTE | 2018-11-30 19:59 | PCM.BM ---
<Alicia Bedoya - Last Filed: 11/30/18 19:55> Treatment Plan Problems - Problems identified on initial assessmt INEFFECTIVE COPING SKILLS Date Initiated: 11/30/18 Time Initiated: 19:00 Assessment reference: NA Status: Active Priority: 1 KNOWLEGE DEFICIT R/T ALCOHOL ABUSE Date Initiated: 11/30/18 Time Initiated: 19:00 Assessment reference: NA Status: Active Priority: 2 DEFENSIVE COPING SKILL Date Initiated: 11/30/18 Time Initiated: 19:00 Assessment reference: NA Status: Active Priority: 3 Treatment assets and liabiliti Patient Assests: adapts well, cooperative, educated, ADL independent, good support system, negotiates basic needs, cognitively intact Patient Liabilities: financial problems, substance abuse - Milieu Protocol Maintain good personal hygiene: every shift Encourage regular showers, every shift Remind patient to perform daily oral care, every shift Assist patient to perform ADL's Maintain personal safety: daily Educate patient to report safety concerns to st aff, daily Monitor environment for contraband/sharps Medication safety: Monitor for expected outcome, potential side effects: daily, Assess barriers to learning: daily, Assess readiness for medication education: daily Discharge/Continuing Care - Education Needs Education Needs: Patient Medication, Patient Diagnosis/Disease Process, Patient Coping Skills, Patient Community resources, Patient Activities of Daily Living, Patient Pain, Patient Nutrition, Patient Health Practices/Safety, Patient Personal Hygiene/Grooming, Patient Aftercare Safety Plan - Discharge Discharge Criteria: Tolerates medication w/o severe side effects, Free of Suicidal thoughts, Free of agitation, Normal sleep pattern, Ability to care for self, No longer exhibiting s/s of withdrawal, Reduction of target symptoms Discharge to:: Home <Hollie Orellana - Last Filed: 12/01/18 13:46> - Diagnosis (1) MDD (major depressive disorder) Status: Chronic Interventions: 12/01/18 13:47 Psychoeducation Psychopharmacology/adjustment of medications as needed/ monitoring possible side effects Evaluate pt on daily basis Compliance with medications and follow up appointments Suicide and homicide risk assessment and prevention Relapse prevention Reduction of symptoms Improve functional status Family involvement As outpatient: cognitive behavioral therapy (2) Alcohol dependence syndrome Status: Acute Interventions: 12/01/18 13:48 Monitoring withdrawal symptoms Medical detoxification Pharmacotherapy for alcohol/benzos/opioid dependence Maintaining sobriety Relapse prevention Possible rehabilitation Motivational interviewing 12-step programs: AA meetings <Digna Cunningham - Last Filed: 12/01/18 15:43> Family Contact Family involvement: Famliy/SO not involved <Marie Vinson - Last Filed: 12/02/18 11:16>
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
[2018-12-01] MEDS: Multivitamin Therapeutic Tab PO SCH (08:11)
[2018-12-01] MEDS: Pantoprazole 40 mg EC Tab PO SCH ×2 (08:12→16:35)
[2018-12-01] MEDS: Fluticasone Nasal 50 mcg/Spray NS SCH (08:41)
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
[2018-12-01] MEDS: Bacitracin Ointment 30 GM TUBE TOP SCH ×2 (14:00→16:36)
[2018-12-01] MEDS: oxyCODONE 10 mg Immediate Release Tab PO PRN ×2 (14:03→17:54)
[2018-12-02] MEDS: Pantoprazole 40 mg EC Tab PO SCH ×2 (07:57→16:16)
[2018-12-02 07:59] LABS: BASO # 0.04 K/mm3 (0.0-2.0); BASO % 0.6 % (0.0-3.0); EOS # 0.2 (0.0-0.7); EOS % 2.8 % (1.5-5.0); GRAN # 3.16 (1.4-6.5); GRAN % 49.7 % (50.0-68.0); HEMOGLOBIN 8.9 g/dL (14.0-18.0); LYMPH # 2.5 (1.2-3.4); LYMPH % 39.7 % (22.0-35.0); MEAN CELL VOLUME 95.6 fl (80.0-105.0); MEAN CORPUSCULAR HGB CONC 31.3 g/dl (31.0-37.0); MEAN PLATELET VOLUME 9.9 fl (7.0-11.0); MONO # 0.5 (0.1-0.6); MONO % 7.2 % (1.0-6.0); RBC 2.97 10^6/uL (3.5-6.1); RED CELL DISTRIBUTION WIDTH 15.5 % (11.5-14.5); WHITE BLOOD COUNT 6.4 10^3/uL (4.5-11.0)
[2018-12-02] MEDS: oxyCODONE 10 mg Immediate Release Tab PO PRN ×2 (07:59→16:17)
[2018-12-02] MEDS: Fluticasone Nasal 50 mcg/Spray NS SCH (08:01)
[2018-12-02] MEDS: Multivitamin Therapeutic Tab PO SCH (08:03)
[2018-12-02] MEDS: Bacitracin Ointment 30 GM TUBE TOP SCH ×2 (14:00→16:13)
--- NOTE | 2018-12-02 14:49 | PCM.PYCHPN ---
Psychiatric Progress Note - Psychiatric Progress Note Patient seen today, length of contact: 30 minutes Patient Chief Complaint: "I feel better, less anxious" Problems Identified/Issues Discussed: Risk/benefits and alternatives of medications discussed, suicide/ homicide pr evention, past psychiatric h/o, current psychiatric symptoms, medical problems, risk/benefits and alternatives of medications, medications compliance, coping strategies, substance abuse h/o, relapse prevention, importance of follow up with psychiatrist and therapist, discharge plan. Medical Problems: See HPI Diagnostic Results: 12/02/18 07:45 Lab Results 12/02/18 07:45: WBC 6.4, RBC 2.97 L, Hgb 8.9 L, Hct 28.4 L, MCV 95.6, MCH 30.0, MCHC 31.3, RDW 15.5 H, Plt Count 254, MPV 9.9, Gran % 49.7 L, Lymph % (Auto) 39.7 H, [place] % (Auto) 7.2 H, Eos % (Auto) 2.8, Baso % (Auto) 0.6, Gran # 3.16, Lymph # (Auto) 2.5, [place] # (Auto) 0.5, Eos # (Auto) 0.2, Baso # (Auto) 0.04 Vital Signs Temp Pulse Resp BP 12/02/18 07:50 99 H 17 141/75 12/02/18 07:14 97.9 F 59 L 20 86/48 L 12/01/18 16:00 70 130/83 12/01/18 07:14 97.9 F 62 20 95/58 L 11/30/18 18:26 95 H 131/84 DSM 5 Symptoms Update: shortly pt is a 28 year old male, whose past medical history includes polysubstance abuse and alcohol abuse, h/o substance induced mood disorder, self reported h/o ?ADHD, possible bipolar disorder (but it is not sure because pt never been sober for significant amount of time in order to be diagnosed correctly), multiple ED/medical floor admissions, as well as psych admissions, h/o chronic noncompliance with f/u appts and medications, chronic resistance to go to inpatient rehab, pt also has h/o involuntary commitment at [facility] and h/o impulsive/suicidal behavior in the past, most recently pt was admitted to [facility] medical site 11/25/18 after pt cut his left forearm which required reconstructive surgery as well as suturing, pt was not committed to the psych unit, was discharged on 11/28/18, came back to [facility] [place]s/p overdose on pain medications, as per report pt's sister called 911, pt initially was admitted to the medical floor for symptomatic anemia, had blood transfusion, medically stabilized, was transferred to the psychiatric inpatient unit for further evaluation and stabilization. Patient is very familiar to the unit from multiple psych admissions, most recent discharge was 11/09/2018. Patient was seen and examined today next to the nursing station, patient presented with improved mood, less anxious, still fixated on benzodiazepines and pain medications, patient reported that he slept a little bit better, patient complaining of anxiety, patient was seen by medical team. As per staff patient is visible in the unit, no agitation, no aggression, but impulses are still unpredictable. So far patient tolerates medications well, no side effects observed or reported, aims 0, no EPS. DSM 5 Diagnosis: r/o substance induced mood disorder r/o mdd alcohol use disorder Rule out substance-induced mood disorder Self-reported history of ADHD Rule out bipolar disorder type II Medication Change: Yes (Tramadol started) Medical Record Reviewed: Yes Consults ordered or reviewed: Medical follow up appreciated Mental Status Examination - Cognitive Function Orientation: Person, Place, Situation Memory: Intact Attention: Poor Concentration: Poor Association: WNL Fund of Knowledge: WNL - Mood Mood: Euphoric ("I feel kind of manic, I feel this way after cutting myself, maybe it is because I realize that I have a lot of things to lose"), Other - Affect Affect: Broad (Somewhat expanded) - Formal Thought Process Formal Thought Process: No Impairment - Suicidal Ideation Suicidal Ideation: No - Homicidal Ideation Homicidal Ideation: No Goal/Treatment Plan - Goal/Treatment Plan Need for Continued Stay: Remain at risks for inpatient hospitalization, Severe depression anxiety, Discharge may exacerbated symptoms, Failed transitioning, Severe functional impairment Progress Toward Problem(s) and Goals/Treatment Plan: Milieu/structure/supportive therapy SW consultation for discharge plan and social issues Med management: Prozac 60 mg daily for depression and anxiety Klonopin 1 mg twice a day started for anxiety Multivitamins, thiamine, folic acid Neurontin 600 mg 3 times a day Trazodone 100 mg at the nighttime for insomnia and for depression And Vistaril as needed for anxiety tramadol as needed for pain Family involvement Follow up on labs Will monitor closely Pt was educated about risk/benefits and alternatives of medications, coping strategies (safety plan, suicide prevention), relapse prevention, importance of follow up with psychiatrist and therapist, stay away from drugs/alcohol/smoking Estimated Date of D/C: 12/06/18
[2018-12-03] MEDS: Pantoprazole 40 mg EC Tab PO SCH ×2 (06:57→16:15)
[2018-12-03] MEDS: Fluticasone Nasal 50 mcg/Spray NS SCH (09:27)
[2018-12-03] MEDS: Multivitamin Therapeutic Tab PO SCH (09:30)
[2018-12-03] MEDS: oxyCODONE 10 mg Immediate Release Tab PO PRN ×2 (09:32→21:48)
--- NOTE | 2018-12-03 13:23 | PCM.PYCHPN ---
Psychiatric Progress Note - Psychiatric Progress Note Patient seen today, length of contact: 30 minutes Patient Chief Complaint: "I was not able to fall asleep and to stay asleep, can you raise my trazodone?" Problems Identified/Issues Discussed: Risk/benefits and alternatives of medications discussed, suicide/ homicide prevention, past psychiatric h/o, current psychiatric symptoms, medical problems, risk/benefits and alternatives of medications, medications compliance, coping strategies, substance abuse h/o, relapse prevention, importance of follow up with psychiatrist and therapist, discharge plan. Medical Problems: See HPI Anemia, status post self inflicted cut on his left arm, significant blood loss, status post reconstructive surgery, please see medical team notes for more detailed information Diagnostic Results: 12/02/18 07:45 Lab Results 12/02/18 07:45: WBC 6.4, RBC 2.97 L, Hgb 8.9 L, Hct 28.4 L, MCV 95.6, MCH 30.0, MCHC 31.3, RDW 15.5 H, Plt Count 254, MPV 9.9, Gran % 49.7 L, Lymph % (Auto) 39.7 H, [place] % (Auto) 7.2 H, Eos % (Auto) 2.8, Baso % (Auto) 0.6, Gran # 3.16, Lymph # (Auto) 2.5, [place] # (Auto) 0.5, Eos # (Auto) 0.2, Baso # (Auto) 0.04 Vital Signs Temp Pulse Resp BP 12/02/18 07:50 99 H 17 141/75 12/02/18 07:14 97.9 F 59 L 20 86/48 L 12/01/18 16:00 70 130/83 12/01/18 07:14 97.9 F 62 20 95/58 L 11/30/18 18:26 95 H 131/84 Temp Pulse Resp BP Pulse Ox 98.0 F 71 18 88/55 L 12/03/18 07:31 12/03/18 07:31 12/03/18 07:31 12/03/18 07:31 DSM 5 Symptoms Update: shortly pt is a 28 year old male, whose past medical history includes polysubstance abuse and alcohol abuse, h/o substance induced mood disorder, self reported h/o ?ADHD, possible bipolar disorder (but it is not sure because pt never been sober for significant amount of time in order to be diagnosed correctly), multiple ED/medical floor admissions, as well as psych admissions, h/o chronic noncompliance with f/u appts and medications, chronic resistance to go to inpatient rehab, pt also has h/o involuntary [place] [facility] and h/o impulsive/suicidal behavior in the past, most recently pt was admitted to [facility] [place] site 11/25/18 after pt cut his left forearm which required reconstructive surgery as well as suturing, pt was not committed to the psych unit, was discharged on 11/28/18, came back to [facility] ?s/p overdose on pain medications, as per report pt's sister called 911, pt initially was admitted to the medical floor for symptomatic anemia, had blood transfusion, medically stabilized, was transferred to the psychiatric inpatient unit for further evaluation and stabilization. Patient is very familiar to the unit from multiple psych admissions, most recent discharge was 11/09/2018. Patient was seen and examined today in his room, with mental health worker, patient presented to be sleepy, patient reported that he did not sleep well last night, patient asked trazodone to be increased, patient still has very poor insight into his addiction to alcohol, when this lyric writer asked about his aftercare plan, patient still feels reluctant to go to inpatient rehab. 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 On top of that patient is impulsive, was observed trying to play with his sutures on his left forearm, then said "it is a joke". As per staff patient is visible in the unit, no agitation, no aggression, but impulses are still unpredictable. So far patient tolerates medications well, no side effects observed or reported, aims 0, no EPS. DSM 5 Diagnosis: r/o substance induced mood disorder r/o mdd alcohol use disorder Rule out substance-induced mood disorder Self-reported history of ADHD Rule out bipolar disorder type II Medication Change: Yes (Trazodone increased) Medical Record Reviewed: Yes Consults ordered or reviewed: Medical follow up appreciated Mental Status Examination - Cognitive Function Orientation: Person, Place, Situation Memory: Intact Attention: Poor (Somewhat better) Concentration: Poor (Better) Association: WNL Fund of Knowledge: WNL - Mood Mood: Neutral, Other - Affect Affect: Broad (Somewhat expanded) - Formal Thought Process Formal Thought Process: No Impairment - Suicidal Ideation Suicidal Ideation: No - Homicidal Ideation Homicidal Ideation: No Goal/Treatment Plan - Goal/Treatment Plan Need for Continued Stay: Remain at risks for inpatient hospitalization, Severe depression anxiety, Discharge may exacerbated symptoms, Failed transitioning, Severe functional impairment Progress Toward Problem(s) and Goals/Treatment Plan: Milieu/structure/supportive therapy SW consultation for discharge plan and social issues Med management: Prozac 60 mg daily for depression and anxiety Klonopin 1 mg twice a day started for anxiety Multivitamins, thiamine, folic acid Neurontin 600 mg 3 times a day Trazodone 150 mg at the nighttime for insomnia and for depression And Vistaril as needed for anxiety tramadol as needed for pain Family involvement Follow up on labs Will monitor closely Pt was educated about risk/benefits and alternatives of medications, coping strategies (safety plan, suicide prevention), relapse prevention, importance of follow up with psychiatrist and therapist, stay away from drugs/alcohol/smoking Estimated Date of D/C: 12/06/18
[2018-12-03] MEDS: Bacitracin Ointment 30 GM TUBE TOP SCH ×2 (13:42→21:21)
[2018-12-04] MEDS: Pantoprazole 40 mg EC Tab PO SCH ×2 (08:58→16:55)
[2018-12-04] MEDS: oxyCODONE 10 mg Immediate Release Tab PO PRN ×2 (09:00→15:24)
[2018-12-04] MEDS: Multivitamin Therapeutic Tab PO SCH (09:00)
[2018-12-04] MEDS: Fluticasone Nasal 50 mcg/Spray NS SCH (09:55)
[2018-12-04] MEDS: Bacitracin Ointment 30 GM TUBE TOP SCH ×2 (09:55→16:55)
--- NOTE | 2018-12-04 14:43 | PCM.PYCHPN ---
Psychiatric Progress Note - Psychiatric Progress Note Patient seen today, length of contact: 30 minutes Patient Chief Complaint: "I slept better, I feel better" Problems Identified/Issues Discussed: Risk/benefits and alternatives of medications discussed, suicide/ homicide prevention, past psychiatric h/o, current psychiatric symptoms, medical problems, risk/benefits and alternatives of medications, medications compliance, coping strategies, substance abuse h/o, relapse prevention, importance of follow up with psychiatrist and therapist, discharge plan. Medical Problems: See HPI Anemia, status post self inflicted cut on his left arm, significant blood loss, status post reconstructive surgery, please see medical team notes for more detailed information Diagnostic Results: 12/02/18 07:45 Lab Results 12/02/18 07:45: WBC 6.4, RBC 2.97 L, Hgb 8.9 L, Hct 28.4 L, MCV 95.6, MCH 30.0, MCHC 31.3, RDW 15.5 H, Plt Count 254, MPV 9.9, Gran % 49.7 L, Lymph % (Auto) 39.7 H, [place] % (Auto) 7.2 H, Eos % (Auto) 2.8, Baso % (Auto) 0.6, Gran # 3.16, Lymph # (Auto) 2.5, [place] # (Auto) 0.5, Eos # (Auto) 0.2, Baso # (Auto) 0.04 Vital Signs Temp Pulse Resp BP 12/02/18 07:50 99 H 17 141/75 12/02/18 07:14 97.9 F 59 L 20 86/48 L 12/01/18 16:00 70 130/83 12/01/18 07:14 97.9 F 62 20 95/58 L 11/30/18 18:26 95 H 131/84 Temp Pulse Resp BP Pulse Ox 98.0 F 71 18 88/55 L 12/03/18 07:31 12/03/18 07:31 12/03/18 07:31 12/03/18 07:31 DSM 5 Symptoms Update: shortly pt is a 28 year old male, whose past medical history includes polysubstance abuse and alcohol abuse, h/o substance induced mood disorder, self reported h/o ?ADHD, possible bipolar disorder (but it is not sure because pt never been sober for significant amount of time in order to be diagnosed co rrectly), multiple ED/medical floor admissions, as well as psych admissions, h/o chronic noncompliance with f/u appts and medications, chronic resistance to go to inpatient rehab, pt also has h/o involuntary commitment at [facility] and h/o impulsive/suicidal behavior in the past, most recently pt was admitted to [facility] medical site 11/25/18 after pt cut his left forearm which required reconstructive surgery as well as suturing, pt was not committed to the psych unit, was discharged on 11/28/18, came back to [facility] [place]s/p overdose on pain medications, as per report pt's sister called 911, pt initially was admitted to the medical floor for symptomatic anemia, had blood transfusion, medically stabilized, was transferred to the psychiatric inpatient unit for further evaluation and stabilization. Patient was seen and examined today next to the nursing station, patient appears to be brighter, reported that he slept better, patient asked about neuropsychological testing, information about providers provided. Patient wants to follow up with Dr. Mi as outpatient, patient has scheduled appointment at [facility] on Thursday, discussed with Dr. Mi, after discharge patient will be followed up more intensively. Patient is on waiting list for dual diagnosis program such as [facility] as well as [facility]. As per staff patient is compliant with her medications, somewhat fixated on pain management as well as benzodiazepines. So far patient tolerates medications well, no side effects observed or reported, aims 0, no EPS. DSM 5 Diagnosis: r/o substance induced mood disorder r/o mdd alcohol use disorder Rule out substance-induced mood disorder Self-reported history of ADHD Rule out bipolar disorder type II Medication Change: Yes (Trazodone increased) Medical Record Reviewed: Yes Mental Status Examination - Cognitive Function Orientation: Person, Place, Situation Memory: Intact Attention: Poor (Somewhat better) Concentration: Poor (Better) Association: WNL Fund of Knowledge: WNL - Mood Mood: Neutral, Other - Affect Affect: Broad (Somewhat expanded) - Formal Thought Process Formal Thought Process: No Impairment - Suicidal Ideation Suicidal Ideation: No - Homicidal Ideation Homicidal Ideation: No Goal/Treatment Plan - Goal/Treatment Plan Need for Continued Stay: Remain at risks for inpatient hospitalization, Severe depression anxiety, Discharge may exacerbated symptoms, Failed transitioning, Severe functional impairment Progress Toward Problem(s) and Goals/Treatment Plan: Milieu/structure/supportive therapy consultation for discharge plan and social issues Med management: Prozac 60 mg daily for depression and anxiety Klonopin 1 mg twice a day started for anxiety Multivitamins, thiamine, folic acid Neurontin 600 mg 3 times a day Trazodone 150 mg at the nighttime for insomnia and for depression And Vistaril as needed for anxiety tramadol as needed for pain Family involvement Follow up on labs Will monitor closely Pt was educated about risk/benefits and alternatives of medications, coping s trategies (safety plan, suicide prevention), relapse prevention, importance of follow up with psychiatrist and therapist, stay away from drugs/alcohol/smoking Estimated Date of D/C: 12/06/18
[2018-12-05] MEDS: oxyCODONE 10 mg Immediate Release Tab PO PRN ×2 (01:37→10:32)
[2018-12-05] MEDS: Multivitamin Therapeutic Tab PO SCH (08:57)
[2018-12-05] MEDS: Bacitracin Ointment 30 GM TUBE TOP SCH ×2 (08:59→16:29)
[2018-12-05] MEDS: Fluticasone Nasal 50 mcg/Spray NS SCH (08:59)
[2018-12-05] MEDS: Pantoprazole 40 mg EC Tab PO SCH ×2 (09:00→16:31)
[2018-12-05] MEDS ORDERED: oxyCODONE 5 mg Immediate Release Tab PO PRN ×2 (10:56→11:19)
[2018-12-06] MEDS: Pantoprazole 40 mg EC Tab PO SCH (06:24)
[2018-12-06 07:33] VITALS: BP 92/52; PULSE 60; RESP 20; TEMP 97.5
[2018-12-06] MEDS: Multivitamin Therapeutic Tab PO SCH (09:05)
[2018-12-06] MEDS: Bacitracin Ointment 30 GM TUBE TOP SCH (09:07)
[2018-12-06] MEDS: Fluticasone Nasal 50 mcg/Spray NS SCH (09:07)
--- NOTE | 2018-12-06 13:15 | PCM.PYCHDC ---
Mental Status Examination - Mental Status Examination Orientation: Person, Place, Situation, Time Memory: Intact Mood: Neutral Affect: Broad (Mood congruent) Speech: Appropriate Attention: WNL Concentration: WNL Association: WNL Fund of Knowledge: WNL Formal Thought Process: No Impairment Description of patient's judgement and insight: Pt has improved insight into mental and medical illness, patient has poor insight into his alcohol addiction and possible benzodiazepines abuse as well as opioid abuse, patient was keeps asking about pain medication/benzodiazepines, patient was advised to go to inpatient rehab but patient refused to do so, wants to go to dual diagnosis program. Patient was compliant with medications and unit rules and regulations, pt was going to groups, was calm, cooperative, socially appropriate, at times intrusive, no behavioral incidents, no agitation, no aggression. Psychotic Thoughts and Behaviors: Pt denied v/a/t hallucinations, denied paranoid ideations, pt does not appear to be psychotic, and thought process is goal directed. Suicidal Ideation: No Current Homicidal Ideation?: No Plan: pt adamantly denied thoughts of harming self or others denied intent or plan. Discharge Summary - Discharge Note Reason for Hospitalization: Patient was transferred to the psychiatric inpatient unit from the medical floor where he was admitted for symptomatic anemia, hypoxia, suicidal ideation, patient had blood transfusion on the medical side, was stabilized, was transferred to the psychiatric inpatient unit for further evaluation and stabilization of mood symptoms, possible suicidal ideation, patient status post self-inflicted deep cut on his left forearm which required reconstructive surgery and blood transfusion. Please see admission notes for more detailed information. Psychiatric History (includes Medical, Family, Personal Hx): See HPI Laboratory Data: 12/02/18 07:45 Lab Results 12/02/18 07:45: WBC 6.4, RBC 2.97 L, Hgb 8.9 L, Hct 28.4 L, MCV 95.6, MCH 30.0, MCHC 31.3, RDW 15.5 H, Plt Count 254, MPV 9.9, Gran % 49.7 L, Lymph % (Auto) 39.7 H, [place] % (Auto) 7.2 H, Eos % (Auto) 2.8, Baso % (Auto) 0.6, Gran # 3.16, Lymph # (Auto) 2.5, [place] # (Auto) 0.5, Eos # (Auto) 0.2, Baso # (Auto) 0.04 Vital Signs Temp Pulse Resp BP 12/06/18 07:32 97.5 F L 60 20 92/52 L 12/05/18 15:00 72 142/89 12/05/18 07:21 97.6 F 67 18 73/39 L 12/04/18 07:00 98.5 F 59 L 20 103/54 L 12/03/18 07:31 98.0 F 71 18 88/55 L 12/03/18 07:29 98.0 F 71 20 88/55 L 12/02/18 16:00 76 124/71 12/02/18 07:50 99 H 17 141/75 12/02/18 07:14 97.9 F 59 L 20 86/48 L 12/01/18 16:00 70 130/83 12/01/18 07:14 97.9 F 62 20 95/58 L 11/30/18 18:26 95 H 131/84 Consultations:: List each consultation separately and include: 1. Reason for request. 2. Findings. 3. Follow-up Consultations: Medical follow up appreciated Please see notes for more detailed information. Summary of Hospital Course include:: 1. Description of specific treatment plan utilized for patients during their course of treatmen. 2. Summarize the time- course for resolution of acute symptoms and/or regressed behaviors. 3. Describe issues identified and worked on during hospitalization. 4. Describe medication utilized. 5. Describe medical problems identified and treated. 6. Reassessment of suicide risk Summary of Hospital Course: shortly pt is a 28 year old male, whose past medical history includes polysubstance abuse and alcohol abuse, h/o substance induced mood disorder, self reported h/o ?ADHD, possible bipolar disorder (but it is not sure because pt never been sober for significant amount of time in order to be diagnosed correctly), multiple ED/medical floor admissions, as well as psych admissions, h/o chronic noncompliance with f/u appts and medications, chronic resistance to go to inpatient rehab, pt also has h[place] involuntary [place] [facility] and h/o impulsive/suicidal behavior in the past, most recently pt was admitted to [facility] medical site 11/25/18 after pt cut his left forearm which required reconstructive surgery as well as suturing, pt was not committed to the psych unit, was discharged on 11/28/18, came back to [facility] [place]p overdose on pain medications, as per report pt's sister called 911, pt initially was admitted to the medical floor for symptomatic anemia, had blood transfusion, medically stabilized, was transferred to the psychiatric inpatient unit for further evaluation and stabilization. Patient is very familiar to the unit from multiple psych admissions, most recent discharge was 11/09/2018. please see admission note for more detailed information. pt adamantly denied that he wanted to end up his life prior to come to the h ospital pt also adamantly denied that he tried to end up his life by overdose on pain medications ("I took only two percocets"), pt also denied that when he cut his left forearm he wanted to , pt said "when I stressed out, I have a tendency of cutting myself, I didn't realized that knife was so sharp, it was not my apartment, I didn't know". More over pt was screened for involuntary commitment while was on the medical floor at [facility]. Vital Signs Temp Pulse Resp BP 12/01/18 07:14 97.9 F 62 20 95/58 L 11/30/18 18:26 95 H 131/84 During this hospitalization patient was stabilized on the following medications: Prozac 60 mg daily for depression and anxiety Klonopin 1 mg twice a day started for anxiety Multivitamins, thiamine, folic acid Neurontin 600 mg 3 times a day Trazodone 150 mg at the nighttime for insomnia and for depression Naltrexone 50 mg daily for alcohol cravings (pt was advised to take it after discontinuation his pain meds for 4weeks, pt verbalized understanding). Patient tolerated medications well, no side effects observed or reported, aims 0, no EPS. Over the course of this hospitalization pt was attending groups, pt also had medication management, had therapeutic milieu. Overall pt improved significantly, pt's affect became brighter, pt was less depressed, has realistic future oriented plans, pt also does not appear to be psychotic, or anxious, pt was socially appropriate, no behavioral issues, pts insight improved as well and soon pt deemed to be ready for discharge. At the time of the discharge patient pose no imminent danger to self or others, will be following up at dual diagnosis program as well as Dr. Mi at [facility]. Information about follow up appointment, time and address provided to the pt, discussed with Dr. Mi, patient will see her 3 times a week for this week (see note for more detailed information). It is a patient responsibility to follow up with outpatient clinic, PMD as well as specialists In case patient will need to obtain results of studies pending at discharge, patient was provided with contact information of Psychiatric Inpatient unit [phone] as well as Medical Record Department [phone], as well as [facility] [phone]. Nicotine patch was provided Naltrexone treatment cost with the patient, prescription provided, patient was advised to take that medication after he will complete his treatment with pain medications. Counseling about smoking and alcohol cessation provided AA meetings as well as [facility] smoking cessation treatment program information was provided by the pt was provided with prescriptions for one week and 3 refills for psychotropic meds, as well as medical meds (see medication reconciliation form) Pt was educated about safety plan in case of worsening of symptoms or in case of suicidal or homicidal ideation call 911 or go to the nearest ER, also was educated to take meds as prescribed and stay away from drugs, pt verbalized understanding. - Diagnosis (1) MDD (major depressive disorder) Status: Chronic Priority: Medium (2) Alcohol dependence syndrome Status: Chronic Priority: High - Final Diagnosis (DSM 5) Condition upon Discharge: GOOD Disposition: HOME/ ROUTINE Follow-up Treatment Plan: At the time of the discharge patient pose no imminent danger to self or others, will be following up at dual diagnosis program as well as Dr. Mi at [facility]. Information about follow up appointment, time and address provided to the pt, discussed with Dr. Mi, patient will see her 3 times a week for this week (see SW note for more detailed information). It is a patient responsibility to follow up with outpatient clinic, PMD as well as specialists In case patient will need to obtain results of studies pending at discharge, patient was provided with contact information of Psychiatric Inpatient unit [phone] as well as Medical Record Department [phone], as well as [facility] team [phone]. Prescriptions/Medication Reconciliation: Bacitracin Ointment [Bacitracin] 1 gm TOP BID #1 tube clonazePAM [Klonopin] 1 mg PO BID #14 tab Docusate [Colace] 100 mg PO BID #14 cap Ferrous Sulfate [Feosol] 324 mg PO TID #21 ect FLUoxetine [Fluoxetine HCl] 20 mg PO 1600 #7 cap Fluoxetine HCl [Prozac] 40 mg PO DAILY #7 capsule Fluticasone Nasal [Flonase] 1 actuation NS DAILY #1 spr Folic Acid 1 mg PO DAILY #7 tab Gabapentin [Neurontin] 600 mg PO TID #21 cap Multivitamin Therapeutic Tab [Thera Tab] 1 tab PO 0800 #7 tab Naltrexone [Revia] 50 mg PO DAILY 14 Days #7 tab Nicotine 21 mg/24 hr [Nicoderm Cq] 1 patch TD DAILY #7 patch Pantoprazole [Protonix EC Tab] 40 mg PO 0600,1600 #14 ect Sodium Chloride Nasal Platte [[place] Nasal Platte] 4 ml NS Q6 PRN #1 bottle PRN Reason: Nasal Congestion Thiamine [Vitamin B1 Tab] 100 mg PO DAILY #7 tab Trazodone HCl 150 mg PO HS #7 tablet - Smoking Cessation Smoking Cessation Medication prescribed: Yes - Antipsychotic Medications Pt discharged on 2 or more routine antipsychotic medications: No
== END 2018-12-06 12:36 | disposition home or self-care (01) | DRG 754 ==
LOC: PSYC 18:10
PROVIDERS: ADMIT Psychiatry & Neurology Psychiatry; ATTEND Psychiatry & Neurology Psychiatry
PROC: GZ3ZZZZ Medication Management (ICD-10-PCS; principal; 2018-11-30)
DX: F32.9 Major depressive disorder, single episode, unspecified (principal); K26.9 Duodenal ulcer, unspecified as acute or chronic, without hemorrhage or perforation; Z91.19 Patient's noncompliance with other medical treatment and regimen; F10.239 Alcohol dependence with withdrawal, unspecified; F14.10 Cocaine abuse, uncomplicated; F11.10 Opioid abuse, uncomplicated; F41.9 Anxiety disorder, unspecified; K29.70 Gastritis, unspecified, without bleeding; D64.9 Anemia, unspecified; F12.10 Cannabis abuse, uncomplicated; G47.00 Insomnia, unspecified; F17.210 Nicotine dependence, cigarettes, uncomplicated; Z91.5 Personal history of self-harm

== ENCOUNTER 2019-01-02 08:49 | Inpatient (IN) | payer MEDICAID, OTHER ==
[2019-01-02 08:49] VITALS: BMI 31.7
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
[2019-01-02 09:57] LABS: BASO # 0.06 K/mm3 (0.0-2.0); BASO % 1.1 % (0.0-3.0); EOS % 0.7 % (1.5-5.0); LYMPH # 2.2 (1.2-3.4); LYMPH % 39.1 % (22.0-35.0); MEAN CELL VOLUME 92.6 fl (80.0-105.0); MEAN CORPUSCULAR HEMOGLOBIN 29.6 pg (25.0-35.0); MEAN CORPUSCULAR HGB CONC 31.9 g/dl (31.0-37.0); MEAN PLATELET VOLUME 9.5 fl (7.0-11.0); MONO # 0.3 (0.1-0.6); MONO % 5.6 % (1.0-6.0); RBC 4.06 10^6/uL (3.5-6.1); RED CELL DISTRIBUTION WIDTH 15.8 % (11.5-14.5); WHITE BLOOD COUNT 5.6 10^3/uL (4.5-11.0)
[2019-01-02 10:34] LABS: BLOOD UREA NITROGEN 16 mg/dL (7-21); CALCIUM 9.1 mg/dL (8.4-10.5); GFR NON-AFRICAN AMERICAN > 60
[2019-01-02 10:35] LABS: ALB/GLOB RATIO 1.5 (1.1-1.8); ALBUMIN 4.5 g/dL (3.0-4.8); ALT/SGPT 115 U/L (7-56); AST/SGOT 64 U/L (17-59)
[2019-01-02 10:38] LABS: ACETAMINOPHEN < 10.0 ug/ml (10.0-20.0); SALICYLATE < 1 mg/dL (2.0-20.0)
[2019-01-02 10:55] LABS: URINE BILIRUBIN NEGATIVE (NEGATIVE); URINE BLOOD NEGATIVE (NEGATIVE); URINE GLUCOSE (UA) NEGATIVE (NEGATIVE); URINE LEUKOCYTE ESTERASE NEGATIVE Leu/uL (NEGATIVE); URINE PROTEIN TRACE mg/dL (<30 mg/dL); URINE UROBILINOGEN 0.2 E.U./dL (<1 E.U./dL)
[2019-01-02 11:00] LABS: URINE APPEARANCE CLEAR (CLEAR); URINE COLOR YELLOW (YELLOW)
[2019-01-02 11:20] LABS: URINE BACTERIA FEW /hpf; URINE RBC 0 - 2 /hpf (0-2); URINE WBC 0 - 2 /hpf (0-6)
[2019-01-02 11:35] LABS: BARBITURATES, UR NEGATIVE (NEGATIVE); BENZODIAZEPINES, UR POSITIVE (NEGATIVE); OPIATES, UR NEGATIVE (NEGATIVE); PHENCYCLIDINE, UR NEGATIVE (NEGATIVE)
[2019-01-02 12:17] VITALS: O2SAT 97
[2019-01-02 17:27] LABS: HDL CHOLESTEROL 40 mg/dL (29-60)
[2019-01-02 17:37] LABS: LDL CHOLESTEROL 81 mg/dL (0-129)
--- NOTE | 2019-01-02 20:40 | CARD ---
APPROVED REPORT Date of service: 01/02/2019 EKG Measurement Heart [id number] <Conclusion> Normal sinus rhythm Incomplete right bundle branch block Leftward axis Borderline ECG
[2019-01-03] MEDS: Multivitamin Therapeutic Tab PO SCH (08:52)
[2019-01-03 12:25] LABS: ALB/GLOB RATIO 1.5 (1.1-1.8); ALBUMIN 4.7 g/dL (3.0-4.8); ALT/SGPT 107 U/L (7-56); AST/SGOT 54 U/L (17-59); BLOOD UREA NITROGEN 19 mg/dL (7-21); CALCIUM 9.4 mg/dL (8.4-10.5); GFR NON-AFRICAN AMERICAN > 60; HDL CHOLESTEROL 37 mg/dL (29-60)
[2019-01-03 12:36] LABS: LDL CHOLESTEROL 63 mg/dL (0-129)
[2019-01-03] MEDS: QUEtiapine 100 MG, QUEtiapine 50 MG PO SCH (12:43)
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
--- NOTE | 2019-01-03 15:10 | PCM.BM ---
<Alicia Bedoya - Last Filed: 01/03/19 15:06> Treatment Plan Problems - Problems identified on initial assessmt KNOWLEDGE DEFICIT:ALCOHOL USE Date Initiated: 01/03/19 Time Initiated: 13:00 Assessment reference: NA Status: Active Priority: 1 INEFFECTIVE COPING SKILLS Date Initiated: 01/03/19 Time Initiated: 13:00 Assessment reference: NA Status: Active Priority: 2 DEFENSIVE COPING Date Initiated: 01/03/19 Time Initiated: 13:00 Assessment reference: NA Status: Active Priority: 3 DENIAL Date Initiated: 01/03/19 Time Initiated: 13:00 Assessment reference: NA Status: Active Priority: 4 Treatment assets and liabiliti Patient Assests: adapts well, cooperative, educated, ADL independent, good support system, negotiates basic needs, cognitively intact Patient Liabilities: financial problems, substance abuse - Milieu Protocol Maintain good personal hygiene: daily Encourage regular showers, daily Remind patient to perform daily oral care, daily Assist patient to perform ADL's Maintain personal safety: every shift Educate patient to report safety concerns to staff, every shift Monitor environment for contraband/sharps Medication safety: Monitor for expected outcome, potential side effects: every shift, Assess barriers to learning: every shift, Assess readiness for medication education: every shift Milieu Narrative: Milieu/structure/supportive therapy SW consultation for discharge plan and social issues Med management Pt's pharmacy was contacted at [facility], patient was on the following medications: [id number] am and 300mg hs resumed Klonopin d/c Vistaril 100 mg twice a day as needed for anxiety Neurontin 600 mg three times a day Multivitamins, thiamine, folic acid Family involvement Follow up on labs Will monitor closely Pt was educated about risk/benefits and alternatives of medications, coping strategies (safety plan, suicide prevention), relapse prevention, importance of follow up with psychiatrist and therapist, stay away from drugs/alcohol/smoking Discharge/Continuing Care - Education Needs Education Needs: Patient Medication, Patient Diagnosis/Disease Process, Patient Coping Skills, Patient Anger Management skills, Patient Community resources, Patient Activities of Daily Living, Patient Pain, Patient Nutrition, Patient Health Practices/Safety, Patient Personal Hygiene/Grooming, Patient Aftercare Safety Plan - Discharge Discharge Criteria: Tolerates medication w/o severe side effects, Free of Suicidal thoughts, Free of agitation, Normal sleep pattern, Ability to care for self, No longer exhibiting s/s of withdrawal, Reduction of target symptoms Discharge to:: Substance Abuse Rehab - Treatment Team Participation Patient/Family/SO Statement: Milieu/structure/supportive therapy SW consultation for discharge plan and social issues Med management Pt's pharmacy was contacted at [facility], patient was on the following medications: [id number] am and 300mg hs resumed Klonopin d/c Vistaril 100 mg twice a day as needed for anxiety Neurontin 600 mg three times a day Multivitamins, thiamine, folic acid Family involvement Follow up on labs Will monitor closely Pt was educated about risk/benefits and alternatives of medications, coping strategies (safety plan, suicide prevention), relapse prevention, importance of follow up with psychiatrist and therapist, stay away from drugs/alcohol/smoking <Digna Cunningham - Last Filed: 01/03/19 16:31> Family Contact Family involvement: Famliy/SO not involved - Goals for Treatment Patient goals for treatment: "I guess I'll go to rehab..." <Hollie Orellana - Last Filed: 01/04/19 13:21> - Diagnosis (1) Anxiolytic dependence with current use Status: Acute Interventions: 01/04/19 13:21 Monitoring withdrawal symptoms Medical detoxification Pharmacotherapy for alcohol/benzos/opioid dependence Maintaining sobriety Relapse prevention Possible rehabilitation Motivational interviewing 12-step programs: AA meetings (2) Alcohol use disorder Status: Chronic Interventions: 01/04/19 13:21 Monitoring withdrawal symptoms Medical detoxification Pharmacotherapy for alcohol/benzos/opioid dependence Maintaining sobriety Relapse prevention Possible rehabilitation Motivational interviewing 12-step programs: AA meetings (3) Substance induced mood disorder Status: Chronic Interventions: 01/04/19 13:21 Psychoeducation Psychopharmacology/adjustment of medications as needed/ monitoring possible side effects Evaluate pt on daily basis Compliance with medications and follow up appointments Suicide and homicide risk assessment and prevention Relapse prevention Reduction of symptoms Improve functional status Family involvement As outpatient: cognitive behavioral therapy
[2019-01-03 16:15] LABS: HEPATITIS B SURFACE AG Negative (NEGATIVE)
[2019-01-03 16:20] LABS: HEPATITIS A IGM NEGATIVE (NEGATIVE); HEPATITIS B CORE AB NEGATIVE (NEGATIVE)
[2019-01-03 16:32] LABS: HEPATITIS C ANTIBODY NEGATIVE (NEGATIVE)
[2019-01-04] MEDS: Pantoprazole 40 mg EC Tab PO SCH (06:51)
[2019-01-04] MEDS: Multivitamin Therapeutic Tab PO SCH (09:31)
[2019-01-04] MEDS: QUEtiapine 100 MG, QUEtiapine 50 MG PO SCH (09:35)
[2019-01-04] MEDS ORDERED: Apap-Butalbital-Caffeine 325-50-40mg Tab PO PRN (11:21)
--- NOTE | 2019-01-04 13:40 | PCM.PYCHPN ---
Psychiatric Progress Note - Psychiatric Progress Note Patient seen today, length of contact: 30 minutes Patient Chief Complaint: "My primary diagnosis is not alcohol abuse, but mental illness, I do not know what mental illness but it is" Problems Identified/Issues Discussed: Suicide/ homicide prevention, past psychiatric h/o, current psychiatric symptoms, medical problems, risk/benefits and alternatives of medications, medications compliance, coping strategies, substance abuse h/o, relapse prevention, importance of follow up with psychiatrist and therapist, discharge plan. Medical Problems: Please see HPI Diagnostic Results: 01/02/19 09:37 01/03/19 12:00 Lab Results 01/03/19 12:00: Hepatitis A IgM Ab Negative, Hep Bs Antigen Negative, Hep B Core IgM Ab Negative, Hepatitis C Antibody Negative 01/03/19 12:00: Sodium 139, Potassium 3.9, Chloride 105, Carbon Dioxide 23, Anion Gap 15, BUN 19, Creatinine 1.0, Est GFR ( Amer) > 60, Est GFR (Non- Af Amer) > 60, Random Glucose 94, Calcium 9.4, Total Bilirubin 0.5, AST 54, ALT 107 H, Alkaline Phosphatase 82, Total Protein 7.9, Albumin 4.7, Globulin 3.2, Albumin/Globulin Ratio 1.5, Triglycerides 642 H, Cholesterol 221 H, LDL Cholesterol Direct 63, HDL Cholesterol 37 01/02/19 10:45: Urine Opiates Screen Negative, Urine Methadone Screen Negative, Ur Barbiturates Screen Negative, Ur Phencyclidine Scrn Negative, Ur Amphetamines Screen Negative, U Benzodiazepines Scrn Positive H, U Oth Cocaine Metabols Negative, U Cannabinoids Screen Negative 01/02/19 10:45: Urine Color Yellow, Urine Appearance Clear, Urine pH 8.0, Ur Specific [place] 1.015, Urine Protein Trace H, Urine Glucose (UA) Negative, Urine Ketones Negative, Urine Blood Negative, Urine Nitrate Negative, Urine Bilirubin Negative, Urine Urobilinogen 0.2, Ur Leukocyte Esterase Negative, U rine RBC 0 - 2, Urine WBC 0 - 2, Urine Bacteria Few 01/02/19 09:37: Hemoglobin A1c 5.3 01/02/19 09:37: Triglycerides 441 H, Cholesterol 224 H, LDL Cholesterol Direct 81, HDL Cholesterol 40 01/02/19 09:37: Alcohol, Quantitative 267 H 01/02/19 09:37: Salicylates < 1 L, Acetaminophen < 10.0 L 01/02/19 09:37: Sodium 146, Potassium 3.9, Chloride 110 H, Carbon Dioxide 24, Anion Gap 16, BUN 16, Creatinine 0.9, Est GFR ( Amer) > 60, Est GFR (Non-Af Amer) > 60, Random Glucose 105, Calcium 9.1, Magnesium 2.0, Total Bilirubin 0.2, AST 64 H, ALT 115 H, Alkaline Phosphatase 84, Total Protein 7.6, Albumin 4.5, Globulin 3.0, Albumin/Globulin Ratio 1.5 01/02/19 09:37: WBC 5.6, RBC 4.06, Hgb 12.0 L D, Hct 37.6 L, MCV 92.6 D, MCH 29.6, MCHC 31.9, RDW 15.8 H, Plt Count 285, MPV 9.5, Neut % (Auto) 53.5, Lymph % (Auto) 39.1 H, [place] % (Auto) 5.6, Eos % (Auto) 0.7 L, Baso % (Auto) 1.1, Lymph # (Auto) 2.2, [place] # (Auto) 0.3, Eos # (Auto) 0.0, Baso # (Auto) 0.06, Absolute Neuts (auto) 2.99 Vital Signs Temp Pulse Resp BP Pulse Ox 01/04/19 07:00 98.2 F 58 L 20 107/64 01/03/19 15:44 80 24 151/79 H 01/03/19 07:06 98.7 F 87 18 115/69 01/02/19 20:56 100 H 118/65 01/02/19 17:08 102 H 140/89 01/02/19 13:00 98.8 F 115 H 20 150/79 01/02/19 12:16 95 H 18 97 01/02/19 12:11 117/82 01/02/19 08:49 98.3 F 91 H 18 125/83 95 DSM 5 Symptoms Update: shortly pt is a 28 year old male, whose past medical history includes polysubstance abuse and alcohol abuse, h/o substance induced mood disorder, self reported h/o ?ADHD, possible bipolar disorder (but it is not sure because pt never been sober for significant amount of time in order to be diagnosed correctly), multiple ED/medical floor admissions, as well as psych admissions, h/o chronic noncompliance with f/u appts and medications, chronic resistance to go to inpatient rehab, pt also has h/o involuntary commitment at [facility] and h/o impulsive/suicidal behavior in the past (all of suicidal gestures were under the influence of alcohol or benzodiazepines), most recently pt was admitted to to [facility] December 22-2018, history of [facility] medical site admission 11/25/18 after pt cut his left forearm which required reconstructive s urgery as well as suturing, at present moment pt required PT. Patient was seen and examined today at the treatment team meeting room with social service technician, medical student, residents. Patient appears to be angry, unsatisfied, was telling him that his primary problem is not alcohol dependence but "mental illness." Patient had difficulties to describe what mental illness he means, and eventually patient said that "I have depression and I have uncontrolled anxiety which I am trying to medicate with alcohol." Radiotelegraphist educated about more than 40 admissions to the medical side as well as emergency room visit for alcohol abuse and detox considered as alcohol use disorder. Patient is agreed with that diagnosis, still does not want to go to inpatient rehab, was fixated to follow up with Dr. Mi as outpatient, this radio news writer educated that he tried this route for more than 10 times and it did not work, patient still feels reluctant to go to inpatient rehab. This radio news writer made it clear that no benzodiazepines will be prescribed to him, patient was advised to go to inpatient rehab or dual diagnosis program. Meanwhile this radio news writer will start tapering down benzodiazepines. As per staff patient is manipulative, splitting the staff, strong borderline personality traits. Patient has good appetite and sleep. So far patient tolerates medications well, no side effects observed or reported, aims 0, no EPS. Impression: Substance-induced mood disorder Alcohol use disorder Anxiolytics and sedatives abuse and dependence Self-reported history of ADHD Medication Change: Yes (Ativan decreased) Medical Record Reviewed: Yes Consults ordered or reviewed: Medical team consultation appreciated Mental Status Examination - Cognitive Function Orientation: Person, Place, Situation Memory: Intact Attention: Poor Concentration: Poor Association: WNL Fund of Knowledge: WNL - Mood Mood: Depressed, Anxious - Affect Affect: Flat - Formal Thought Process Formal Thought Process: No Impairment - Suicidal Ideation Suicidal Ideation: No - Homicidal Ideation Homicidal Ideation: No Goal/Treatment Plan - Goal/Treatment Plan Need for Continued Stay: Remain at risks for inpatient hospitalization, Severe depression anxiety, Discharge may exacerbated symptoms, Severe functional impai rment Progress Toward Problem(s) and Goals/Treatment Plan: Milieu/structure/supportive therapy SW consultation for discharge plan and social issues Med management Pt's pharmacy was contacted, medications resumed [id number] am and 300mg hs resumed Klonopin d/c Vistaril 100 mg twice a day as needed for anxiety Neurontin 600 mg three times a day Multivitamins, thiamine, folic acid Ativan on tapering dose Family involvement Follow up on labs Will monitor closely Pt was educated about risk/benefits and alternatives of medications, coping strategies (safety plan, suicide prevention), relapse prevention, importance of follow up with psychiatrist and therapist, stay away from drugs/alcohol/smoking Estimated Date of D/C: 01/07/19
[2019-01-05] MEDS: Pantoprazole 40 mg EC Tab PO SCH (06:21)
[2019-01-05] MEDS: Multivitamin Therapeutic Tab PO SCH (07:42)
[2019-01-05] MEDS: QUEtiapine 100 MG, QUEtiapine 50 MG PO SCH (07:43)
--- NOTE | 2019-01-05 13:25 | PCM.PYCHPN ---
Psychiatric Progress Note - Psychiatric Progress Note Patient seen today, length of contact: 30 minutes Patient Chief Complaint: "you could wean me off ativan, I can follow up with inpatient rehabs myself..." Problems Identified/Issues Discussed: Suicide/ homicide prevention, past psychiatric h/o, current psychiatric symptoms, medical problems, risk/benefits and alternatives of medications, medications compliance, coping strategies, substance abuse h/o, relapse preventi on, importance of follow up with psychiatrist and therapist, discharge plan. Medical Problems: Please see HPI Diagnostic Results: 01/02/19 09:37 01/03/19 12:00 Lab Results 01/03/19 12:00: Hepatitis A IgM Ab Negative, Hep Bs Antigen Negative, Hep B Core IgM Ab Negative, Hepatitis C Antibody Negative 01/03/19 12:00: Sodium 139, Potassium 3.9, Chloride 105, Carbon Dioxide 23, Anion Gap 15, BUN 19, Creatinine 1.0, Est GFR ( Amer) > 60, Est GFR (Non- Af Amer) > 60, Random Glucose 94, Calcium 9.4, Total Bilirubin 0.5, AST 54, ALT 107 H, Alkaline Phosphatase 82, Total Protein 7.9, Albumin 4.7, Globulin 3.2, Albumin/Globulin Ratio 1.5, Triglycerides 642 H, Cholesterol 221 H, LDL Cholesterol Direct 63, HDL Cholesterol 37 01/02/19 10:45: Urine Opiates Screen Negative, Urine Methadone Screen Negative, Ur Barbiturates Screen Negative, Ur Phencyclidine Scrn Negative, Ur Amphetamines Screen Negative, U Benzodiazepines Scrn Positive H, U Oth Cocaine Metabols Negative, U Cannabinoids Screen Negative 01/02/19 10:45: Urine Color Yellow, Urine Appearance Clear, Urine pH 8.0, Ur Specific [place] 1.015, Urine Protein Trace H, Urine Glucose (UA) Negative, Urine Ketones Negative, Urine Blood Negative, Urine Nitrate Negative, Urine Bilirubin Negative, Urine Urobilinogen 0.2, Ur Leukocyte Esterase Negative, Urine RBC 0 - 2, Urine WBC 0 - 2, Urine Bacteria Few 01/02/19 09:37: Hemoglobin A1c 5.3 01/02/19 09:37: Triglycerides 441 H, Cholesterol 224 H, LDL Cholesterol Direct 81, HDL Cholesterol 40 01/02/19 09:37: Alcohol, Quantitative 267 H 01/02/19 09:37: Salicylates < 1 L, Acetaminophen < 10.0 L 01/02/19 09:37: Sodium 146, Potassium 3.9, Chloride 110 H, Carbon Dioxide 24, Anion Gap 16, BUN 16, Creatinine 0.9, Est GFR ( Amer) > 60, Est GFR (Non- Af Amer) > 60, Random Glucose 105, Calcium 9.1, Magnesium 2.0, Total Bilirubin 0.2, AST 64 H, ALT 115 H, Alkaline Phosphatase 84, Total Protein 7.6, Albumin 4.5, Globulin 3.0, Albumin/Globulin Ratio 1.5 01/02/19 09:37: WBC 5.6, RBC 4.06, Hgb 12.0 L D, Hct 37.6 L, MCV 92.6 D, MCH 29.6, MCHC 31.9, RDW 15.8 H, Plt Count 285, MPV 9.5, Neut % (Auto) 53.5, Lymph % (Auto) 39.1 H, Humphreys % (Auto) 5.6, Eos % (Auto) 0.7 L, Baso % (Auto) 1.1, Lymph # (Auto) 2.2, Humph[place]ys # (Auto) 0.3, Eos # (Auto) 0.0, Baso # (Auto) 0.06, Absolute Neuts (auto) 2.99 Vital Signs Temp Pulse Resp BP Pulse Ox 01/04/19 07:00 98.2 F 58 L 20 107/64 01/03/19 15:44 80 24 151/79 H 01/03/19 07:06 98.7 F 87 18 115/69 01/02/19 20:56 100 H 118/65 01/02/19 17:08 102 H 140/89 01/02/19 13:00 98.8 F 115 H 20 150/79 01/02/19 12:16 95 H 18 97 01/02/19 12:11 117/82 01/02/19 08:49 98.3 F 91 H 18 125/83 95 Temp Pulse Resp BP Pulse Ox 97.8 F 58 L 18 111/70 97 01/05/19 07:00 01/05/19 07:00 01/05/19 07:00 01/05/19 07:00 01/02/19 12:16 DSM 5 Symptoms Update: shortly pt is a 28 year old male, whose past medical history includes polysubstance abuse and alcohol abuse, h/o substance induced mood disorder, self reported h/o ?ADHD, possible bipolar disorder (but it is not sure because pt never been sober for significant amount of time in order to be diagnosed correctly), multiple ED/medical floor admissions, as well as psych admissions, h/o chronic noncompliance with f/u appts and medications, chronic resistance to go to inpatient rehab, pt also [place] [facility] and h/o impulsive/suicidal behavior in the past (all of suicidal gestures were under the influence of alcohol or benzodiazepines), most recently pt was admitted to to [facility] [place] December 22-2018, history [place] [facility] [place]18 after pt cut his left forearm which required reconstructive surgery as well as suturing, at present moment pt required PT. Patient was seen and examined today at the treatment team meeting room with medical student, residents. Patient appears to be sleepy, annoyed and mildly irritable. pt still feels resistant to go to inpatient rehab, saying that he will arrange everything himself. pt is keep calling to his previous psychiatrist with the hope that he will be accepted again. this policy writer typist recommended pt to admit himself to inpatient rehab or dual diagnosis day treatment program. Pt disagreed saying that "my primary problem is mental illness because I am depressed." at the same time pt denied any intent or plan to harm self or others. this policy writer typist is tapering down benzodiazepines. As per staff patient is manipulative, splitting the staff, strong borderline personality traits. Patient has good appetite and sleep. So far patient tolerates medications well, no side effects observed or reported, aims 0, no EPS. Impression: Substance-induced mood disorder Alcohol use disorder Anxiolytics and sedatives abuse and dependence Self-reported history of ADHD Medication Change: Yes (Ativan decreased) Medical Record Reviewed: Yes Mental Status Examination - Cognitive Function Orientation: Person, Place, Situation Memory: Intact Attention: Poor Concentration: Poor Association: WNL Fund of Knowledge: WNL - Mood Mood: Depressed, Anxious - Affect Affect: Flat - Formal Thought Process Formal Thought Process: No Impairment - Suicidal Ideation Suicidal Ideation: No - Homicidal Ideation Homicidal Ideation: No Goal/Treatment Plan - Goal/Treatment Plan Need for Continued Stay: Remain at risks for inpatient hospitalization, Severe depression anxiety, Discharge may exacerbated symptoms, Severe functional impairment Progress Toward Problem(s) and Goals/Treatment Plan: Milieu/structure/supportive therapy SW consultation for discharge plan and social issues Med management Pt's pharmacy was contacted, medications resumed [id number] am and 300mg hs resumed Klonopin d/c Vistaril 100 mg twice a day as needed for anxiety Neurontin 600 mg three times a day Multivitamins, thiamine, folic acid Ativan tapering trazodone 50mg hs for depression d/c sonata Family involvement Follow up on labs Will monitor closely Pt was educated about risk/benefits and alternatives of medications, coping strategies (safety plan, suicide prevention), relapse prevention, importance of follow up with psychiatrist and therapist, stay away from drugs/alcohol/smoking Estimated Date of D/C: 01/07/19
[2019-01-06] MEDS: Pantoprazole 40 mg EC Tab PO SCH (06:32)
[2019-01-06] MEDS: QUEtiapine 100 MG, QUEtiapine 50 MG PO SCH (09:08)
[2019-01-06] MEDS: Multivitamin Therapeutic Tab PO SCH (09:10)
[2019-01-06] MEDS: Benzocaine/Menthol (Cepacol) Lozenge MT PRN (13:08)
--- NOTE | 2019-01-06 14:16 | PCM.PYCHPN ---
Psychiatric Progress Note - Psychiatric Progress Note Patient seen today, length of contact: 30 minutes Patient Chief Complaint: "I am not feeling well, I feel chills, nasal congestion, sore throat, probably it is because you are weaning me off from ativan quickly..." Problems Identified/Issues Discussed: Suicide/ homicide prevention, past psychiatric h/o, current psychiatric symptoms, medical problems, risk/benefits and alternatives of medications, medications compliance, coping strategies, substance abuse h/o, relapse prevention, importance of follow up with psychiatrist and therapist, discharge plan. Medical Problems: Please see HPI Diagnostic Results: 01/02/19 09:37 01/03/19 12:00 Lab Results 01/03/19 12:00: Hepatitis A IgM Ab Negative, Hep Bs Antigen Negative, Hep B Core IgM Ab Negative, Hepatitis C Antibody Negative 01/03/19 12:00: Sodium 139, Potassium 3.9, Chloride 105, Carbon Dioxide 23, Anion Gap 15, BUN 19, Creatinine 1.0, Est GFR ( Amer) > 60, Est GFR (Non- Af Amer) > 60, Random Glucose 94, Calcium 9.4, Total Bilirubin 0.5, AST 54, ALT 107 H, Alkaline Phosphatase 82, Total Protein 7.9, Albumin 4.7, Globulin 3.2, Albumin/Globulin Ratio 1.5, Triglycerides 642 H, Cholesterol 221 H, LDL Cholesterol Direct 63, HDL Cholesterol 37 01/02/19 10:45: Urine Opiates Screen Negative, Urine Methadone Screen Negative, Ur Barbiturates Screen Negative, Ur Phencyclidine Scrn Negative, Ur Amphetamines Screen Negative, U Benzodiazepines Scrn Positive H, U Oth Cocaine Metabols Negative, U Cannabinoids Screen Negative 01/02/19 10:45: Urine Color Yellow, Urine Appearance Clear, Urine pH 8.0, Ur Specific [place] 1.015, Urine Protein Trace H, Urine Glucose (UA) Negative, Urine Ketones Negative, Urine Blood Negative, Urine Nitrate Negative, Urine Bilirubin Negative, Urine Urobilinogen 0.2, Ur Leukocyte Esterase Negative, Urine RBC 0 - 2, Urine WBC 0 - 2, Urine Bacteria Few 01/02/19 09:37: Hemoglobin A1c 5.3 01/02/19 09:37: Triglycerides 441 H, Cholesterol 224 H, LDL Cholesterol Direct 81, HDL Cholesterol 40 01/02/19 09:37: Alcohol, Quantitative 267 H 01/02/19 09:37: Salicylates < 1 L, Acetaminophen < 10.0 L 01/02/19 09:37: Sodium 146, Potassium 3.9, Chloride 110 H, Carbon Dioxide 24, Anion Gap 16, BUN 16, Creatinine 0.9, Est GFR ( Amer) > 60, Est GFR (Non- Af Amer) > 60, Random Glucose 105, Calcium 9.1, Magnesium 2.0, Total Bilirubin 0.2, AST 64 H, ALT 115 H, Alkaline Phosphatase 84, Total Protein 7.6, Albumin 4.5, Globulin 3.0, Albumin/Globulin Ratio 1.5 01/02/19 09:37: WBC 5.6, RBC 4.06, Hgb 12.0 L D, Hct 37.6 L, MCV 92.6 D, MCH 29.6, MCHC 31.9, RDW 15.8 H, Plt Count 285, MPV 9.5, Neut % (Auto) 53.5, Lymph % (Auto) 39.1 H, Stewart % (Auto) 5.6, Eos % (Auto) 0.7 L, Baso % (Auto) 1.1, Lymph # (Auto) 2.2, Stewart # (Auto) 0.3, Eos # (Auto) 0.0, Baso # (Auto) 0.06, Absolute Neuts (auto) 2.99 Vital Signs Temp Pulse Resp BP Pulse Ox 01/04/19 07:00 98.2 F 58 L 20 107/64 01/03/19 15:44 80 24 151/79 H 01/03/19 07:06 98.7 F 87 18 115/69 01/02/19 20:56 100 H 118/65 01/02/19 17:08 102 H 140/89 01/02/19 13:00 98.8 F 115 H 20 150/79 01/02/19 12:16 95 H 18 97 01/02/19 12:11 117/82 01/02/19 08:49 98.3 F 91 H 18 125/83 95 Temp Pulse Resp BP Pulse Ox 97.8 F 58 L 18 111/70 97 01/05/19 07:00 01/05/19 07:00 01/05/19 07:00 01/05/19 07:00 01/02/19 12:16 DSM 5 Symptoms Update: shortly pt is a 28 year old male, whose past medical history includes po lysubstance abuse and alcohol abuse, h/o substance induced mood disorder, self reported h/o ?ADHD, possible bipolar disorder (but it is not sure because pt never been sober for significant amount of time in order to be diagnosed correctly), multiple ED/medical floor admissions, as well as psych admissions, h/o chronic noncompliance with f/u appts and medications, chronic resistance to go to inpatient rehab, pt also has h/o involuntary commitment at [facility] [place] and h/o impulsive/suicidal behavior in the past (all of suicidal gestures were under the influence of alcohol or benzodiazepines), most recently pt was admitted to to [facility] at [place] December 22-2018, history of [facility] medical site admission 11/25/18 after pt cut his left forearm which required reconstructive surgery as well as suturing, at present moment pt required PT. Patient was seen and examined today at the treatment team meeting room with medical student, residents. Patient appears to be sleepy, reported that he does not feel well, pt reported that he feels nasal congestion and sore throat, pt also appeared to be pale. CBC, CMP ordered, lozenges, vit C and advised drink plenty of water. pt also reported to feel nauseated. pt's impression that it is because of ativan dose decreased. pt is keep calling to his previous psychiatrist with the hope that he will be accepted again. this credit underwriter recommended pt to admit himself to inpatient rehab or dual diagnosis day treatment program. Pt disagreed saying that "my primary problem is mental illness because I am depressed." at the same time pt denied any intent or plan to harm self or others. this credit underwriter is tapering down benzodiazepines. As per staff patient is manipulative, splitting the staff, strong borderline personality traits. Patient has good appetite and sleep. So far patient tolerates medications well, no side effects observed or reported, aims 0, no EPS. Impression: Substance-induced mood disorder Alcohol use disorder Anxiolytics and sedatives abuse and dependence Self-reported history of ADHD Medication Change: Yes (Ativan decreased) Medical Record Reviewed: Yes Mental Status Examination - Cognitive Function Orientation: Person, Place, Situation Memory: Intact Attention: Poor Concentration: Poor Association: WNL Fund of Knowledge: WNL - Mood Mood: Depressed, Anxious - Affect Affect: Flat - Formal Thought Process Formal Thought Process: No Impairment - Suicidal Ideation Suicidal Ideation: No - Homicidal Ideation Homicidal Ideation: No Goal/Treatment Plan - Goal/Treatment Plan Need for Continued Stay: Remain at risks for inpatient hospitalization, Severe depression anxiety, Discharge may exacerbated symptoms, Severe functional impairment Progress Toward Problem(s) and Goals/Treatment Plan: Milieu/structure/supportive therapy SW consultation for discharge plan and social issues Med management Pt's pharmacy was contacted, medications resumed [id number] am and 300mg hs resumed Klonopin d/c Vistaril 100 mg twice a day as needed for anxiety Neurontin 600 mg three times a day Multivitamins, thiamine, folic acid Ativan tapering trazodone 50mg hs for depression d/c sonata Family involvement Follow up on labs Will monitor closely Pt was educated about risk/benefits and alternatives of medications, coping strategies (safety plan, suicide prevention), relapse prevention, importance of follow up with psychiatrist and therapist, stay away from drugs/alcohol/smoking Estimated Date of D/C: 01/07/19
[2019-01-06 16:27] LABS: BASO # 0.02 K/mm3 (0.0-2.0); BASO % 0.3 % (0.0-3.0); EOS # 0.1 (0.0-0.7); EOS % 1.6 % (1.5-5.0); HEMOGLOBIN 11.6 g/dL (14.0-18.0); LYMPH # 1.2 (1.2-3.4); LYMPH % 15.3 % (22.0-35.0); MEAN CELL VOLUME 93.3 fl (80.0-105.0); MEAN CORPUSCULAR HEMOGLOBIN 30.1 pg (25.0-35.0); MEAN CORPUSCULAR HGB CONC 32.2 g/dl (31.0-37.0); MEAN PLATELET VOLUME 10.2 fl (7.0-11.0); MONO # 0.2 (0.1-0.6); RBC 3.86 10^6/uL (3.5-6.1); RED CELL DISTRIBUTION WIDTH 15.3 % (11.5-14.5); WHITE BLOOD COUNT 7.7 10^3/uL (4.5-11.0)
[2019-01-06 16:44] LABS: ALB/GLOB RATIO 1.4 (1.1-1.8); ALBUMIN 4.4 g/dL (3.0-4.8); ALT/SGPT 59 U/L (7-56); AST/SGOT 36 U/L (17-59); BLOOD UREA NITROGEN 16 mg/dL (7-21); CALCIUM 9.2 mg/dL (8.4-10.5); GFR NON-AFRICAN AMERICAN > 60
[2019-01-07] MEDS: Pantoprazole 40 mg EC Tab PO SCH (05:50)
[2019-01-07 06:12] VITALS: BP 101/64; PULSE 67; RESP 18; TEMP 97.8
[2019-01-07] MEDS: Benzocaine/Menthol (Cepacol) Lozenge MT PRN ×2 (08:12→12:07)
[2019-01-07] MEDS: QUEtiapine 100 MG, QUEtiapine 50 MG PO SCH (08:15)
[2019-01-07] MEDS: Multivitamin Therapeutic Tab PO SCH (08:17)
--- NOTE | 2019-01-07 14:58 | PCM.PYCHDC ---
Mental Status Examination - Mental Status Examination Orientation: Person, Place, Situation, Time Memory: Intact Mood: Neutral Affect: Constricted (Reactive and mood congruent) Speech: Appropriate Attention: WNL Concentration: WNL Association: WNL Fund of Knowledge: WNL Formal Thought Process: No Impairment Description of patient's judgement and insight: Limited insight into his alcohol addiction, fair insight into his mental illness Psychotic Thoughts and Behaviors: Pt denied v/a/t hallucinations, denied paranoid ideations, pt does not appear to be psychotic, and thought process is goal directed. Suicidal Ideation: No Current Homicidal Ideation?: No Plan: pt adamantly denied thoughts of harming self or others denied intent or plan. Discharge Summary - Discharge Note Reason for Hospitalization: pt was admitted for evaluation and stabilization of depressive symptoms. Psychiatric History (includes Medical, Family, Personal Hx): See HPI Laboratory Data: Abnormal Lab Results 01/06/19 01/06/19 16:00 16:00 WBC 7.7 D RBC 3.86 Hgb 11.6 L Hct 36.0 L MCV 93.3 MCH 30.1 MCHC 32.2 RDW 15.3 H Plt Count 237 MPV 10.2 Neut % (Auto) 79.8 H Lymph % (Auto) 15.3 L [place] % (Auto) 3.0 Eos % (Auto) 1.6 Baso % (Auto) 0.3 Lymph # (Auto) 1.2 [place] # (Auto) 0.2 Eos # (Auto) 0.1 Baso # (Auto) 0.02 Absolute Neuts (auto) 6.14 Sodium 136 Potassium 4.0 Chloride 104 Carbon Dioxide 22 Anion Gap 14 BUN 16 Creatinine 0.9 Est GFR ( Amer) > 60 Est GFR (Non-Af Amer) > 60 Random Glucose 119 H Calcium 9.2 Total Bilirubin 0.4 AST 36 ALT 59 H Alkaline Phosphatase 87 Total Protein 7.4 Albumin 4.4 Globulin 3.0 Albumin/Globulin Ratio 1.4 Consultations:: List each consultation separately and include: 1. Reason for request. 2. Findings. 3. Follow-up Consultations: Medical team consultation appreciated Discussed with Dr. Valverde at the day of discharge, patient needs to follow up wit h outpatient provider, no concerns about his anemia at present moment. Summary of Hospital Course include:: 1. Description of specific treatment plan utilized for patients during their course of treatmen. 2. Summarize the time- course for resolution of acute symptoms and/or regressed behaviors. 3. Describe issues identified and worked on during hospitalization. 4. Describe medication utilized. 5. Describe medical problems identified and treated. 6. Reassessment of suicide risk Summary of Hospital Course: shortly pt is a 28 year old male, whose past medical history includes polysubstance abuse and alcohol abuse, h/o substance induced mood disorder, self reported h/o ?ADHD, possible bipolar disorder (but it is not sure because pt never been sober for significant amount of time in order to be diagnosed correctly), multiple ED/medical floor admissions, as well as psych admissions, h/o chronic noncompliance with f/u appts and medications, chronic resistance to go to inpatient rehab, pt also has h/o involuntary commitment at [facility] and h/o impulsive/suicidal behavior in the past (all of suicidal gestures were under the influence of alcohol or benzodiazepines), most recently pt was admitted to to [facility] [place] December 22-2018, history of [facility] medical site admission 11/25/18 after pt cut his left forearm which required reconstructive surgery as well as suturing. Please see admission note for more detailed info rmation. Pt's pharmacy was contacted at [facility], patient was on the following medications: [id number] am and 300mg hs was continued, dose was increased to Seroquel 200 in the morning time and 300 mg at the nighttime Klonopin was weaned off Vistaril 100 mg twice a day as needed for anxiety was continued Neurontin 600 mg three times a day was continued Patient does not want to be on naltrexone Patient also was on Prozac 20 mg daily TriCor Folic acid Multivitamins Nitro-Derm Thiamine Trazodone for depression and insomnia patient was tapered off from Ativan. Patient tolerated medications well, no side effects observed or reported, aims 0, no EPS. Over the course of this hospitalization patient demonstrated poor insight into his alcohol addiction, does not feel that he is addicted to alcohol, patient refused to go to inpatient rehab, was sabotaging inpatient rehab referrals. From the psychiatric standpoint patient's depression improved significantly, no suicidal gestures observed or reported. Patient demonstrated strong borderline personality traits. At the time of the discharge patient pose no imminent danger to self or others, will be followed up with dual diagnosis program, information about follow up appointment, time and address provided to the pt, (see note for more detailed information). It is a patient responsibility to follow up with outpatient clinic, PMD as well as specialists In case patient will need to obtain results of studies pending at discharge, patient was provided with contact information of Psychiatric Inpatient unit [phone] as well as Medical Record Department [phone], as well as [facility] team [phone]. Nicotine patch was provided Naltrexone treatment offered,but pt refused Counseling about smoking and alcohol cessation provided AA meetings as well as [facility] smoking cessation treatment program information was provided by the pt was provided with prescriptions see medication reconciliation form Pt was educated about safety plan in case of worsening of symptoms or in case of suicidal or homicidal ideation call 911 or go to the nearest ER, also was educated to take meds as prescribed and stay away from drugs, pt verbalized understanding. 01/02/19 09:37 01/03/19 12:00 Lab Results 01/03/19 12:00: Sodium 139, Potassium 3.9, Chloride 105, Carbon Dioxide 23, Anion Gap 15, BUN 19, Creatinine 1.0, Est GFR ( Amer) > 60, Est GFR (Non- Af Amer) > 60, Random Glucose 94, Calcium 9.4, Total Bilirubin 0.5, AST 54, ALT 107 H, Alkaline Phosphatase 82, Total Protein 7.9, Albumin 4.7, Globulin 3.2, Albumin/Globulin Ratio 1.5, Triglycerides Pending, Cholesterol 221 H, LDL Cholesterol Direct 63, HDL Cholesterol 37 01/02/19 10:45: Urine Opiates Screen Negative, Urine Methadone Screen Negative, Ur Barbiturates Screen Negative, Ur Phencyclidine Scrn Negative, Ur Amphetamines Screen Negative, U Benzodiazepines Scrn Positive H, U Oth Cocaine Metabols Negative, U Cannabinoids Screen Negative 01/02/19 10:45: Urine Color Yellow, Urine Appearance Clear, Urine pH 8.0, Ur Specific [place] 1.015, Urine Protein Trace H, Urine Glucose (UA) Negative, Urine Ketones Negative, Urine Blood Negative, Urine Nitrate Negative, Urine Bilirubin Negative, Urine Urobilinogen 0.2, Ur Leukocyte Esterase Negative, Urine RBC 0 - 2, Urine WBC 0 - 2, Urine Bacteria Few 01/02/19 09:37: Hemoglobin A1c 5.3 01/02/19 09:37: Triglycerides 441 H, Cholesterol 224 H, LDL Cholesterol Direct 81, HDL Cholesterol 40 01/02/19 09:37: Alcohol, Quantitative 267 H 01/02/19 09:37: Salicylates < 1 L, Acetaminophen < 10.0 L 01/02/19 09:37: Sodium 146, Potassium 3.9, Chloride 110 H, Carbon Dioxide 24, Anion Gap 16, BUN 16, Creatinine 0.9, Est GFR ( Amer) > 60, Est GFR (Non- Af Amer) > 60, Random Glucose 105, Calcium 9.1, Magnesium 2.0, Total Bilirubin 0.2, AST 64 H, ALT 115 H, Alkaline Phosphatase 84, Total Protein 7.6, Albumin 4.5, Globulin 3.0, Albumin/Globulin Ratio 1.5 01/02/19 09:37: WBC 5.6, RBC 4.06, Hgb 12.0 L D, Hct 37.6 L, MCV 92.6 D, MCH 29.6, MCHC 31.9, RDW 15.8 H, Plt Count 285, MPV 9.5, Neut % (Auto) 53.5, Lymph % (Auto) 39.1 H, [place] % (Auto) 5.6, Eos % (Auto) 0.7 L, Baso % (Auto) 1.1, Lymph # (Auto) 2.2, [place] # (Auto) 0.3, Eos # (Auto) 0.0, Baso # (Auto) 0.06, Absolute Neuts (auto) 2.99 Vital Signs Temp Pulse Resp BP Pulse Ox 01/03/19 07:06 98.7 F 87 18 115/69 01/02/19 20:56 100 H 118/65 01/02/19 17:08 102 H 140/89 01/02/19 13:00 98.8 F 115 H 20 150/79 01/02/19 12:16 95 H 18 97 01/02/19 12:11 117/82 01/02/19 08:49 98.3 F 91 H 18 125/83 95 - Diagnosis (1) Anxiolytic dependence with current use Current Visit: Yes Status: Acute Priority: High (2) Alcohol use disorder Current Visit: No Status: Chronic Priority: High (3) Substance induced mood disorder Current Visit: No Status: Chronic Priority: High - Final Diagnosis (DSM 5) Condition upon Discharge: STABLE Disposition: HOME/ ROUTINE Follow-up Treatment Plan: At the time of the discharge patient pose no imminent danger to self or others, will be followed up with dual diagnosis program, information about follow up appointment, time and address provided to the pt, (see note for more detailed information). It is a patient responsibility to follow up with outpatient clinic, PMD as well as specialists In case patient will need to obtain results of studies pending at discharge, patient was provided with contact information of Psychiatric Inpatient unit [phone] as well as Medical Record Department [phone], as well as [facility] team [phone]. Nicotine patch was provided Naltrexone treatment offered,but pt refused Counseling about smoking and alcohol cessation provided AA meetings as well as [facility] smoking cessation treatment program information was provided by the pt was provided with prescriptions see medication reconciliation form Pt was educated about safety plan in case of worsening of symptoms or in case of suicidal or homicidal ideation call 911 or go to the nearest ER, also was e ducated to take meds as prescribed and stay away from drugs, pt verbalized understanding. Prescriptions/Medication Reconciliation: Fenofibrate [Tricor] 48 mg PO DAILY #7 tab FLUoxetine [Prozac] 20 mg PO DAILY #14 cap Folic Acid 1 mg PO DAILY #14 tab Gabapentin [Neurontin] 600 mg PO TID #45 tab hydrOXYzine Pamoate [Vistaril] 100 mg PO BID #30 cap LORazepam [Ativan] 1 mg PO BID #3 tab Multivitamin Therapeutic Tab [Thera Tab] 1 tab PO 0800 #14 tab Nicotine 21 mg/24 hr [Nicoderm Cq] 1 patch TD DAILY #14 patch Pantoprazole [Protonix EC Tab] 40 mg PO 0600 #7 ect Quetiapine Fumarate [Seroquel] 200 mg PO DAILY #14 tab Quetiapine Fumarate [Seroquel] 300 mg PO HS #14 tablet Thiamine [Vitamin B1 Tab] 50 mg PO DAILY #14 tab traZODone [Desyrel] 50 mg PO HS #14 tab - Smoking Cessation Smoking Cessation Medication prescribed: Yes - Antipsychotic Medications Pt discharged on 2 or more routine antipsychotic medications: No
== END 2019-01-07 16:00 | disposition home or self-care (01) | DRG 775 ==
LOC: ED 08:49 → ERH 12:01 → PSYC 13:29
PROVIDERS: ADMIT Psychiatry & Neurology Psychiatry; ATTEND Psychiatry & Neurology Psychiatry
PROC: GZ3ZZZZ Medication Management (ICD-10-PCS; principal; 2019-01-02)
DX: F19.94 Other psychoactive substance use, unspecified with psychoactive substance-induced mood disorder (principal); F10.10 Alcohol abuse, uncomplicated; F13.20 Sedative, hypnotic or anxiolytic dependence, uncomplicated; R45.851 Suicidal ideations; E78.5 Hyperlipidemia, unspecified; F41.9 Anxiety disorder, unspecified; F31.9 Bipolar disorder, unspecified; G47.00 Insomnia, unspecified; K21.9 Gastro-esophageal reflux disease without esophagitis; E78.1 Pure hyperglyceridemia; F17.210 Nicotine dependence, cigarettes, uncomplicated; Y90.8 Blood alcohol level of 240 mg/100 ml or more

== ENCOUNTER 2019-01-13 07:23 | Emergency (ER) | payer OTHER, MEDICAID ==
[2019-01-13 07:24] VITALS: BMI 31.7
[2019-01-13 07:59] VITALS: RESP 18
[2019-01-13] MEDS ORDERED: Atrop/Hyosc/Scopal/PB Elixir (120 ml) PO STA (08:19)
[2019-01-13] MEDS ORDERED: Alum-Mag Hydrox-Simethicone Susp (30 mL) PO STA (08:19)
[2019-01-13] MEDS ORDERED: Sodium Chloride 0.9% 1,000 ML IV STA (08:19)
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
[2019-01-13 09:00] LABS: BASO # 0.06 K/mm3 (0.0-2.0); BASO % 0.8 % (0.0-3.0); EOS # 0.1 (0.0-0.7); EOS % 1.4 % (1.5-5.0); HEMOGLOBIN 13.1 g/dL (14.0-18.0); LYMPH # 2.6 (1.2-3.4); LYMPH % 35.8 % (22.0-35.0); MEAN CELL VOLUME 91.3 fl (80.0-105.0); MEAN CORPUSCULAR HEMOGLOBIN 31.5 pg (25.0-35.0); MEAN CORPUSCULAR HGB CONC 34.5 g/dl (31.0-37.0); MEAN PLATELET VOLUME 10.5 fl (7.0-11.0); MONO # 0.4 (0.1-0.6); RBC 4.16 10^6/uL (3.5-6.1); RED CELL DISTRIBUTION WIDTH 15.7 % (11.5-14.5); WHITE BLOOD COUNT 7.2 10^3/uL (4.5-11.0)
[2019-01-13 09:04] LABS: ALB/GLOB RATIO 1.2 (1.1-1.8); ALBUMIN 4.8 g/dL (3.0-4.8); ALT/SGPT 63 U/L (7-56); AST/SGOT 86 U/L (17-59); BLOOD UREA NITROGEN 18 mg/dL (7-21); CALCIUM 9.3 mg/dL (8.4-10.5); GFR NON-AFRICAN AMERICAN > 60; LIPASE 38 U/L (23-300)
--- NOTE | 2019-01-13 10:26 | US ---
PROCEDURE: Left upper extremity venous ultrasound HISTORY: Arm pain and swelling. Evaluate for deep venous thrombosis. PHYSICIAN(S): Colin Batres MD. FINDINGS: The visualized leftinternal jugular vein is sonographically normal and compressible. No evidence of obstruction or thrombus is seen. The visualized segments of the left subclavian vein are patent with normal waveforms. No sonographic evidence of obstruction or thrombosis is seen. The visualized deep venous system of the proximal leftupper extremity is sonographically normal and compressible. IMPRESSION: 1. No sonographic evidence for deep venous thrombosis in the visualized segments of the left upper extremity.
[2019-01-13 10:42] VITALS: BP 132/82; PULSE 77; TEMP 97.7; O2SAT 99
== END 2019-01-13 11:00 | disposition home or self-care (01) ==
LOC: ED 07:23
DX: K29.70 Gastritis, unspecified, without bleeding (principal); F17.210 Nicotine dependence, cigarettes, uncomplicated
CPT/HCPCS: 80053; 80320; 83690; 83735; 85025; 93971; 96361; 96374; 96375; 99283; J2060; J7030

== ENCOUNTER 2019-01-14 18:58 | Emergency (ER) | payer MEDICAID, OTHER ==
[2019-01-14 19:23] VITALS: RESP 18; TEMP 98.3
[2019-01-14 19:24] VITALS: BMI 31.1
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
[2019-01-14 20:04] LABS: ACETAMINOPHEN < 10.0 ug/ml (10.0-20.0); ALB/GLOB RATIO 1.3 (1.1-1.8); ALBUMIN 4.3 g/dL (3.0-4.8); ALT/SGPT 47 U/L (7-56); AST/SGOT 53 U/L (17-59); BLOOD UREA NITROGEN 13 mg/dL (7-21); CALCIUM 8.5 mg/dL (8.4-10.5); GFR NON-AFRICAN AMERICAN > 60; SALICYLATE < 1 mg/dL (2.0-20.0)
[2019-01-14 20:23] LABS: BASO # 0.04 K/mm3 (0.0-2.0); BASO % 0.7 % (0.0-3.0); EOS # 0.1 (0.0-0.7); EOS % 1.9 % (1.5-5.0); HEMOGLOBIN 11.9 g/dL (14.0-18.0); LYMPH # 3.3 (1.2-3.4); LYMPH % 55.3 % (22.0-35.0); MEAN CELL VOLUME 90.8 fl (80.0-105.0); MEAN CORPUSCULAR HGB CONC 31.9 g/dl (31.0-37.0); MEAN PLATELET VOLUME 10.1 fl (7.0-11.0); MONO # 0.3 (0.1-0.6); MONO % 4.7 % (1.0-6.0); RBC 4.11 10^6/uL (3.5-6.1); RED CELL DISTRIBUTION WIDTH 15.7 % (11.5-14.5); WHITE BLOOD COUNT 5.9 10^3/uL (4.5-11.0)
[2019-01-15 00:44] LABS: PH,URINE 6.5 (4.7-8.0); URINE BILIRUBIN NEGATIVE (NEGATIVE); URINE BLOOD NEGATIVE (NEGATIVE); URINE GLUCOSE (UA) NEGATIVE (NEGATIVE); URINE LEUKOCYTE ESTERASE NEGATIVE Leu/uL (NEGATIVE); URINE PROTEIN NEGATIVE mg/dL (<30 mg/dL); URINE UROBILINOGEN 0.2 E.U./dL (<1 E.U./dL)
[2019-01-15 00:48] LABS: URINE APPEARANCE CLEAR (CLEAR); URINE COLOR YELLOW (YELLOW)
[2019-01-15 00:49] LABS: BARBITURATES, UR NEGATIVE (NEGATIVE)
[2019-01-15 00:56] LABS: BENZODIAZEPINES, UR POSITIVE (NEGATIVE); OPIATES, UR NEGATIVE (NEGATIVE); PHENCYCLIDINE, UR NEGATIVE (NEGATIVE)
[2019-01-15 03:55] VITALS: BP 125/72; PULSE 86; O2SAT 97
--- NOTE | 2019-01-15 10:30 | RAD ---
Date of service: 01/14/2019 HISTORY: librium ingestion COMPARISON: Portable chest 11/28/2018. FINDINGS: LUNGS: Overlapped bronchovascular markings are favored over potential early infiltrate at the right infrahilar space. Left chest remains clear. PLEURA: No significant pleural effusion identified, no pneumothorax apparent. CARDIOVASCULAR: No aortic atherosclerotic calcification present. Stable cardiac silhouette. No pulmonary vascular congestion. OSSEOUS STRUCTURES: No significant abnormalities. VISUALIZED UPPER ABDOMEN: Normal. OTHER FINDINGS: None. IMPRESSION: Overlapped bronchovascular markings are favored over potential early infiltrate right infrahilar space. Clinically correlate. Remainder the examination appears stable in the interval.
--- NOTE | 2019-01-15 21:24 | CARD ---
APPROVED REPORT Date of service: 01/14/2019 EKG Measurement Heart [id number] [id number] <Conclusion> Normal sinus rhythm Incomplete right bundle branch block Borderline ECG
== END 2019-01-15 03:45 | disposition home or self-care (01) ==
LOC: ED 18:58
DX: T42.4X1A Poisoning by benzodiazepines, accidental (unintentional), initial encounter (principal)
CPT/HCPCS: 71045; 80053; 81003; 85025; 93005; 99284; G0480

== ENCOUNTER 2019-01-19 21:57 | Observation (INO) | payer MEDICAID, OTHER ==
[2019-01-19 21:58] VITALS: BMI 31.1
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
[2019-01-19 22:48] LABS: BASO # 0.05 K/mm3 (0.0-2.0); BASO % 0.7 % (0.0-3.0); EOS # 0.3 (0.0-0.7); EOS % 4.2 % (1.5-5.0); HEMOGLOBIN 12.8 g/dL (14.0-18.0); LYMPH # 3.3 (1.2-3.4); LYMPH % 43.6 % (22.0-35.0); MEAN CELL VOLUME 89.5 fl (80.0-105.0); MEAN CORPUSCULAR HEMOGLOBIN 29.2 pg (25.0-35.0); MEAN CORPUSCULAR HGB CONC 32.6 g/dl (31.0-37.0); MEAN PLATELET VOLUME 10.9 fl (7.0-11.0); MONO # 0.4 (0.1-0.6); RBC 4.39 10^6/uL (3.5-6.1); WHITE BLOOD COUNT 7.6 10^3/uL (4.5-11.0)
[2019-01-19 22:48] LABS: URINE BILIRUBIN NEGATIVE (NEGATIVE); URINE BLOOD NEGATIVE (NEGATIVE); URINE GLUCOSE (UA) NEGATIVE (NEGATIVE); URINE LEUKOCYTE ESTERASE NEGATIVE Leu/uL (NEGATIVE); URINE PROTEIN NEGATIVE mg/dL (<30 mg/dL); URINE UROBILINOGEN 0.2 E.U./dL (<1 E.U./dL)
[2019-01-19 22:50] LABS: URINE APPEARANCE CLEAR (CLEAR); URINE COLOR YELLOW (YELLOW)
[2019-01-19 22:57] LABS: ACETAMINOPHEN < 10.0 ug/ml (10.0-20.0); SALICYLATE < 1 mg/dL (2.0-20.0)
[2019-01-19 22:59] LABS: ALB/GLOB RATIO 1.2 (1.1-1.8); ALBUMIN 4.4 g/dL (3.0-4.8); ALT/SGPT 35 U/L (7-56); AST/SGOT 49 U/L (17-59); BLOOD UREA NITROGEN 12 mg/dL (7-21); CALCIUM 8.7 mg/dL (8.4-10.5); GFR NON-AFRICAN AMERICAN > 60
[2019-01-19 23:07] LABS: BARBITURATES, UR NEGATIVE (NEGATIVE)
[2019-01-19 23:10] LABS: BENZODIAZEPINES, UR POSITIVE (NEGATIVE); OPIATES, UR NEGATIVE (NEGATIVE); PHENCYCLIDINE, UR NEGATIVE (NEGATIVE)
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
[2019-01-20] MEDS: Multivitamin Therapeutic Tab PO SCH (08:51)
--- NOTE | 2019-01-20 09:03 | CT ---
Date of service: 01/20/2019 PROCEDURE: CT HEAD WITHOUT CONTRAST. HISTORY: SEIZURE COMPARISON: Comparison is made with 11/19/2018 TECHNIQUE: Axial computed tomography images were obtained through the head/brain without intravenous contrast. Radiation dose: Total exam DLP = 1904.93 mGy-cm. This CT exam was performed using one or more of the following dose reduction techniques: Automated exposure control, adjustment of the mA and/or kV according to patient size, and/or use of iterative reconstruction technique. FINDINGS: HEMORRHAGE: No intracranial hemorrhage. BRAIN: No mass effect or edema. No atrophy or chronic microvascular ischemic changes. VENTRICLES: Unremarkable. No hydrocephalus. CALVARIUM: Unremarkable. PARANASAL SINUSES: Unremarkable as visualized. No significant inflammatory changes. MASTOID AIR CELLS: Unremarkable as visualized. No inflammatory changes. OTHER FINDINGS: None. IMPRESSION: No evidence of acute intracranial hemorrhage intracranial collection mass effect or midline shift. Preliminary report was submitted by [facility] Radiology contains concordant findings.
[2019-01-20] MEDS: Enoxaparin 40 mg Syringe SC SCH (10:53)
[2019-01-20 10:59] LABS: BASO # 0.06 K/mm3 (0.0-2.0); BASO % 1.1 % (0.0-3.0); EOS # 0.3 (0.0-0.7); EOS % 5.6 % (1.5-5.0); HEMOGLOBIN 12.2 g/dL (14.0-18.0); LYMPH # 2.5 (1.2-3.4); LYMPH % 46.9 % (22.0-35.0); MEAN CELL VOLUME 90.4 fl (80.0-105.0); MEAN CORPUSCULAR HEMOGLOBIN 29.2 pg (25.0-35.0); MEAN CORPUSCULAR HGB CONC 32.3 g/dl (31.0-37.0); MONO # 0.4 (0.1-0.6); RBC 4.18 10^6/uL (3.5-6.1); RED CELL DISTRIBUTION WIDTH 16.3 % (11.5-14.5); WHITE BLOOD COUNT 5.4 10^3/uL (4.5-11.0)
[2019-01-20] MEDS: Folic Acid 1 MG, Thiamine 100 MG, Multivitamin (MVI) 10 ML in Dextrose 5% In Water 1,00... IV SCH (11:00)
--- NOTE | 2019-01-20 11:15 | CARD ---
APPROVED REPORT Date of service: 01/19/2019 EKG Measurement Heart [id number] 178P43 [id number] <Conclusion> Normal sinus rhythm Incomplete right bundle branch block Borderline ECG
[2019-01-20 11:21] LABS: ALB/GLOB RATIO 1.3 (1.1-1.8); ALBUMIN 4.2 g/dL (3.0-4.8); ALT/SGPT 38 U/L (7-56); AST/SGOT 58 U/L (17-59); BLOOD UREA NITROGEN 15 mg/dL (7-21); CALCIUM 8.8 mg/dL (8.4-10.5); GFR NON-AFRICAN AMERICAN > 60
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
--- NOTE | 2019-01-20 13:24 | RAD ---
Date of service: 01/19/2019 HISTORY: seizure COMPARISON: Portable chest 01/14/2019. FINDINGS: LUNGS: No active pulmonary disease. PLEURA: No significant pleural effusion identified, no pneumothorax apparent. CARDIOVASCULAR: No aortic atherosclerotic calcification present. Cardiac silhouette appears stable. No pulmonary vascular congestion. OSSEOUS STRUCTURES: No significant abnormalities. VISUALIZED UPPER ABDOMEN: Normal. OTHER FINDINGS: None. IMPRESSION: No interval acute cardiopulmonary disease appreciated.
--- NOTE | 2019-01-20 15:31 | PCM.EEG ---
Electroencephalogram Report - Electroencephalogram Report Procedure Date: 01/20/19 Medication: Folic Acid, gabapentin, Librium Interpretation: Technical Information: This was a 16 -channel EEG, 1-channel EKG routine EEG performed using an [employer] machine. Electrodes were applied using the 10/20 international placement system. Start; 11;47 End; 12;33 Total 58 min Clinical Information: seizures During resting wakefulness there was a symmetric posterior dominant rhythm at 8.5-9.5 Hz, 30-50 uV, which was reactive to eye opening and closing. Drowsiness (12;03) was associated with fragmentation of the posterior dominant rhythm and with slow roving eye movements. Light sleep was not recorded . Hyperventilation was performed no changes in the record. Photic stimulation was performed and there were no changes on the record. Focal abnormality; none ECG was associated with a normal sinus rhythm. Impression: This is a normal awake and drowsy electroencephalogram.
--- NOTE | 2019-01-20 18:12 | CON ---
DATE OF CONSULTATION: 01/20/2019 HISTORY OF PRESENT ILLNESS: In short, the patient is a 28-year-old male with reported history of severe alcohol use disorder, multiple complications due to chronic alcohol consumption, history of alcohol withdrawal seizures. The patient also has history of impulsive and risky behavior while being intoxicated. This time the patient was admitted for evaluation of seizures, most likely related to alcohol withdrawal seizures. Psych consult was called because the patient has history of mental illness. This story writer is very familiar with this patient from the previous admission to the psychiatric inpatient unit, most recent was in 12/2018. Please see previous notes for more detailed information. The patient was seen and examined. The patient presented to be irritable, refused to talk. The patient reported that he does not like this story writer and does not want to be evaluated. At the same time, the patient was able to answer that he is not suicidal, not depressed and he does not have any psychotic symptoms. The patient was giving this story writer attitude. Most likely, it is related to the fact that this story writer never suggested the patient to be on any benzodiazepines, but the patient has strong impression that he needs to continue on benzodiazepines despite the fact that he has long history of alcohol use disorder. This story writer suggested the patient to go to inpatient rehab on multiple occasions, but the patient refused to do so, but the patient has rights to make even bad decisions for himself. PHYSICAL EXAMINATION: VITAL SIGNS: Reviewed. Temperature 98.2, pulse is 80, blood pressure 104/65, respirations 26, and oxygen saturations 95. MEDICATIONS: Reviewed. Librium was started by medical team, Lovenox, folic acid, multivitamins, thiamine, folic acid, Neurontin, multivitamins, and Protonix. LABORATORY DATA: Labs reviewed. Chemistries reviewed. Toxicology reviewed. Alcohol level at the time of emergency room visit was 297. MENTAL STATUS EXAMINATION: The patient presented to be irritable, annoyed, acceptable personal hygiene. No eye contact. Mood described as okay. Affect was constricted. Thought process concrete. Thought content, the patient denied thoughts of harming himself or others. Denied intent or plan. Insight and judgment seemed to be very limited. Impulses are well controlled while on the medical side. Insight and judgment seemed to be limited to his alcohol addiction. IMPRESSION: Most likely, the patient has substance-induced mood disorder, chronic alcohol dependence. PLAN: The patient does not want this story writer to be involved into his care, which is the patient's right. This story writer suggested the patient to go to inpatient rehab, but the patient declined that offer. Meanwhile, the patient poses no imminent danger to self or others. Should you have any questions give me a call back. Librium needs to be discontinued slowly. Multivitamins, thiamine and folic acid needs to be continued. Should you have any questions give me a call back. This story writer will sign off. Hollie Orellana MD MTDPhilip
[2019-01-21] MEDS: Folic Acid 1 MG, Thiamine 100 MG, Multivitamin (MVI) 10 ML in Dextrose 5% In Water 1,00... IV SCH ×3 (00:01→13:07)
[2019-01-21] MEDS: Pantoprazole 40 mg EC Tab PO SCH (05:08)
[2019-01-21 05:50] VITALS: RESP 20
[2019-01-21 07:07] LABS: BASO # 0.05 K/mm3 (0.0-2.0); BASO % 0.7 % (0.0-3.0); EOS # 0.3 (0.0-0.7); HEMOGLOBIN 11.3 g/dL (14.0-18.0); LYMPH # 2.9 (1.2-3.4); LYMPH % 39.6 % (22.0-35.0); MEAN CELL VOLUME 91.4 fl (80.0-105.0); MEAN CORPUSCULAR HEMOGLOBIN 28.7 pg (25.0-35.0); MEAN CORPUSCULAR HGB CONC 31.4 g/dl (31.0-37.0); MEAN PLATELET VOLUME 10.6 fl (7.0-11.0); MONO # 0.4 (0.1-0.6); MONO % 4.8 % (1.0-6.0); RBC 3.94 10^6/uL (3.5-6.1); RED CELL DISTRIBUTION WIDTH 16.2 % (11.5-14.5); WHITE BLOOD COUNT 7.2 10^3/uL (4.5-11.0)
[2019-01-21 07:19] LABS: ALB/GLOB RATIO 1.2 (1.1-1.8); ALBUMIN 3.8 g/dL (3.0-4.8); ALT/SGPT 40 U/L (7-56); AST/SGOT 46 U/L (17-59); BLOOD UREA NITROGEN 15 mg/dL (7-21); CALCIUM 9.1 mg/dL (8.4-10.5); GFR NON-AFRICAN AMERICAN > 60
[2019-01-21] MEDS: Enoxaparin 40 mg Syringe SC SCH (09:49)
[2019-01-21] MEDS: Multivitamin Therapeutic Tab PO SCH (09:50)
--- NOTE | 2019-01-21 11:07 | CP.PCM.PN ---
<Lucinda Cisneros - Last Filed: 01/21/19 10:56> Subjective - Date & Time of Evaluation Date of Evaluation: 01/21/19 Time of Evaluation: 09:00 - Subjective Subjective: Lucinda Cisneros PGY1 Medicine Progress Note Patient seen and examined at bedside this morning. Offers no complaints this morning and denies H/A, abdominal pain, diarrhea, n/v, CP and SOB. CIWA score of 5. Will taper down librium and ativan, possible discharge tomorrow. Objective - Vital Signs/Intake and Output Vital Signs (last 24 hours): Temp Pulse Resp BP Pulse Ox 98.0 F 56 L 20 99/56 L 96 01/21/19 05:49 01/21/19 05:49 01/21/19 05:49 01/21/19 05:49 01/21/19 05:49 Intake and Output: 01/21/19 01/21/19 06:59 18:59 Intake Total 2930 Output Total 500 Balance 2430 - Medications Medications: Current Medications Chlordiazepoxide (Librium) 25 mg PO Q8 [facility]; Protocol Last Admin: 01/21/19 05:08 Dose: 25 mg Enoxaparin Sodium (Lovenox) 40 mg SC DAILY [facility]; Protocol Last Admin: 01/21/19 09:49 Dose: 40 mg Folic Acid (Folic Acid) 1 mg PO DAILY [facility] Last Admin: 01/21/19 09:50 Dose: 1 mg Gabapentin (Neurontin) 300 mg PO TID [facility]; Protocol Last Admin: 01/21/19 09:50 Dose: 300 mg Ibuprofen (Motrin Tab) 600 mg PO Q6H PRN PRN Reason: Pain, moderate (4-7) Last Admin: 01/21/19 05:08 Dose: 600 mg Lorazepam (Ativan) 2 mg IV Q2H PRN; Protocol PRN Reason: Seizure activity Last Admin: 01/21/19 08:20 Dose: 2 mg Lorazepam (Ativan) 2 mg IVP Q4H PRN; Protocol PRN Reason: Symptoms of alcohol withdrawl Last Admin: 01/21/19 05:07 Dose: 2 mg Multivitamins (Thera Tab) 1 tab PO 0800 [facility] Last Admin: 01/21/19 09:50 Dose: 1 tab Nicotine (Nicoderm Cq) 1 patch TD DAILY [facility] Last Admin: 01/21/19 09:50 Dose: 1 patch Pantoprazole Sodium (Protonix Ec Tab) 40 mg PO 0600 [facility] Last Admin: 01/21/19 05:08 Dose: 40 mg Sodium Chloride (Belgreen Nasal Madeline) 0 ml NS Q2H PRN PRN Reason: Nasal congestion Last Admin: 01/21/19 09:52 Dose: 1 spr Thiamine HCl (Vitamin B1 Tab) 50 mg PO DAILY [facility] Last Admin: 01/21/19 09:50 Dose: 50 mg - Labs Labs: 01/21/19 06:30 01/21/19 06:30 Physical Exam - Constitutional Appears: Non-toxic, No Acute Distress - Head Exam Head Exam: ATRAUMATIC, NORMOCEPHALIC - Eye Exam Eye Exam: EOMI, Normal appearance, PERRL - ENT Exam ENT Exam: Mucous Membranes Moist - Neck Exam Neck exam: Positive for: Normal Inspection - Respiratory Exam Respiratory Exam: Clear to Auscultation Bilateral, NORMAL BREATHING PATTERN. absent: Accessory Muscle Use, Rhonchi, Respiratory Distress - Cardiovascular Exam Cardiovascular Exam: REGULAR RHYTHM, +S1, +S2. absent: Tachycardia, Systolic Murmur - GI/Abdominal Exam GI & Abdominal Exam: Normal Bowel Sounds, Soft. Mild RUQ tenderness absent: Distended, Firm, Guarding, Rebound, Tenderness - Extremities Exam Extremities exam: Positive for: normal inspection - Neurological Exam Neurological exam: AO x3, no focal deficits appreciated - Skin Skin Exam: Dry, Intact, Warm Assessment and Plan - Assessment and Plan (Free Text) Assessment: Patient is a 28 year old male with past medical history of polysubstance abuse presenting with chief complaint of seizure. Discharge planning for tomorrow. Plan: Provoked Seizure - 2/2 alcohol - CIWA 5 this morning - will taper down ativan prn and librium - Head CT unremarkable - Neurology consulted, Dr. Mena - continue gabapentin 300mg TID for prophylaxis - EEG unremarkable - Seizure/aspiration precautions - Neurochecks Polysubstance abuse - UDS positive for benzodiazepines - alcohol level 297 - MVI/thiamine/folic acid - ativan prn for seizures - cessation counseling Depression/bipolar disorder/anxiety - patient refused psych consult - last filled psych meds were in 01/2018 -prescribed 200mg seroquel daily, 300mg seroquel HS, trazodone 50mg HS, prozac daily on d/c from psych on 01/07/19 but patient did not fill prescriptions PPX - Lovenox SC, Protonix Patient seen and case discussed with attending, Annemarie Markham <Marlin Valverde R - Last Filed: 01/22/19 07:15> Objective - Vital Signs/Intake and Output Vital Signs (last 24 hours): Temp Pulse Resp BP Pulse Ox 97.4 F L 69 20 130/84 96 01/22/19 06:00 01/22/19 06:00 01/22/19 06:00 01/22/19 06:00 01/22/19 06:00 Intake and Output: 01/22/19 01/22/19 06:59 18:59 Intake Total 720 Output Total 500 Balance 220 - Medications Medications: Current Medications Chlordiazepoxide (Librium) 25 mg PO Q12 [facility]; Protocol Last Admin: 01/21/19 23:30 Dose: 25 mg Enoxaparin Sodium (Lovenox) 40 mg SC DAILY [facility]; Protocol Last Admin: 01/21/19 09:49 Dose: 40 mg Fenofibrate (Tricor) 48 mg PO DAILY [facility] Fluoxetine HCl (Prozac) 20 mg PO DAILY [facility] Folic Acid (Folic Acid) 1 mg PO DAILY [facility] Last Admin: 01/21/19 09:50 Dose: 1 mg Gabapentin (Neurontin) 600 mg PO TID [facility]; Protocol Ibuprofen (Motrin Tab) 600 mg PO Q6H PRN PRN Reason: Pain, moderate (4-7) Last Admin: 01/22/19 00:43 Dose: 600 mg Lorazepam (Ativan) 1 mg IVP Q4H PRN; Protocol PRN Reason: Symptoms of alcohol withdrawl Last Admin: 01/22/19 00:43 Dose: 1 mg Multivitamins (Thera Tab) 1 tab PO 0800 [facility] Last Admin: 01/21/19 09:50 Dose: 1 tab Nicotine (Nicoderm Cq) 1 patch TD DAILY [facility] Last Admin: 01/21/19 09:50 Dose: 1 patch Pantoprazole Sodium (Protonix Ec Tab) 40 mg PO 0600 [facility] Last Admin: 01/22/19 05:09 Dose: 40 mg Quetiapine Fumarate (Seroquel) 200 mg PO DAILY [facility]; Protocol Quetiapine Fumarate (Seroquel) 300 mg PO HS [facility]; Protocol Sodium Chloride (Belgreen Nasal Madeline) 0 ml NS Q2H PRN PRN Reason: Nasal congestion Last Admin: 01/22/19 00:56 Dose: 2 spr Thiamine HCl (Vitamin B1 Tab) 50 mg PO DAILY [facility] Last Admin: 01/21/19 09:50 Dose: 50 mg Trazodone HCl (Desyrel) 50 mg PO HS [facility] - Labs Labs: 01/21/19 06:30 01/21/19 06:30 Attending/Attestation - Attestation I have personally seen and examined this patient.: Yes I have fully participated in the care of the patient.: Yes I have reviewed all pertinent clinical information, including history, physical exam and plan: Yes Notes (Text): Patient seen and examined by me with resident at 9:20 AM on 01/21/19. Case including HPI, physical exam, and assessment and plan discussed with resident. Agree with above with following additions/corrections. Patient is a 28-year-old male with past medical history significant for polysubstance abuse, alcohol abuse, bipolar disorder, depression, and anxiety that presented to the emergency room with seizure. Patient states he is feeling better. Patient feels a little anxious. No tremors. No abdominal pain. No nausea or vomiting. Patient denies chest pain or palpitations. No shortness of breath. No headaches or dizziness. No fevers or chills. No dysuria. Patient is tolerating diet. Physical exam: General: Awake and alert, lying in bed in no acute distress. HEENT: Normocephalic, atraumatic, Extraocular muscles intact, pupils equal and reactive, no scleral icterus. Oropharynx is pink and moist. Neck is supple. Cardiovascular: Normal rhythm. Normal S1 and S2. No murmurs, rubs, or gallops appreciated. Pulmonary: Normal respiratory effort. No rhonchi, rales, or wheezing appreciated. Gastrointestinal: Soft. Nontender. Nondistended. Positive bowel sounds all 4 quadrants. No guarding. Musculoskeletal: Moves all extremities. No calf tenderness. No edema appreciated. Central nervous system: AAO x 3, CN 2-12 grossly intact. Dermatologic: Skin warm and dry. Assessment and plan: Patient is a 28-year-old male with past medical history significant for polysubstance abuse, alcohol abuse, bipolar disorder, depression, and anxiety that presented to the emergency room with seizure. 1. Seizure. Likely secondary to substance abuse and alcohol. Neurology recommendations appreciated. Continue gabapentin. No seizure in hospital. EEG per neurlogist showed a normal awake and drowsy electroencephalogram. Head CT per radiologist showed no evidence of acute intracranial hemorrhage, intracranial collection, mass effect or midline shift. 2. Polysubstance abuse. Alcohol abuse. Patient counseled at length on cessation. Continue with CIWA protocol. Continue with Librium taper. Status post banana bag. Continue thiamine, folic acid, multivitamin. 3. Tobacco abuse. Counseled on cessation. Continue Nicoderm 4. Bipolar disorder. Depression and anxiety. Patient seen by psychiatrist. Per patient, he has not filled the prescriptions he was given last admission. Will follow-up and add medications per last admission to psychiatric unit. Patient counseled at on compliance with taking medications. 5. Hypertriglyceridemia. Continue TriCor. 6. GI/DVT prophylaxis. Protonix/Lovenox. Case was discussed in detail with the patient regarding current diagnosis and treatment plan. All questions answered.
[2019-01-21] MEDS ORDERED: Alum-Mag Hydrox-Simethicone Susp (30 mL) PO ONE (20:11)
[2019-01-22] MEDS: Pantoprazole 40 mg EC Tab PO SCH (05:09)
[2019-01-22 06:02] VITALS: BP 130/84; TEMP 97.4; O2SAT 96
[2019-01-22 07:08] LABS: BASO # 0.05 K/mm3 (0.0-2.0); BASO % 0.7 % (0.0-3.0); EOS # 0.3 (0.0-0.7); HEMOGLOBIN 11.3 g/dL (14.0-18.0); LYMPH # 2.6 (1.2-3.4); LYMPH % 34.6 % (22.0-35.0); MEAN CELL VOLUME 92.7 fl (80.0-105.0); MEAN CORPUSCULAR HEMOGLOBIN 28.4 pg (25.0-35.0); MEAN CORPUSCULAR HGB CONC 30.6 g/dl (31.0-37.0); MEAN PLATELET VOLUME 11.1 fl (7.0-11.0); MONO # 0.5 (0.1-0.6); MONO % 6.9 % (1.0-6.0); RBC 3.98 10^6/uL (3.5-6.1); RED CELL DISTRIBUTION WIDTH 16.1 % (11.5-14.5); WHITE BLOOD COUNT 7.6 10^3/uL (4.5-11.0)
[2019-01-22 07:26] LABS: ALB/GLOB RATIO 1.3 (1.1-1.8); ALBUMIN 3.9 g/dL (3.0-4.8); ALT/SGPT 47 U/L (7-56); AST/SGOT 43 U/L (17-59); BLOOD UREA NITROGEN 16 mg/dL (7-21); CALCIUM 9.3 mg/dL (8.4-10.5); GFR NON-AFRICAN AMERICAN > 60
[2019-01-22] MEDS ORDERED: FLUoxetine Elix 20 MG/5 ML PO SCH (10:00)
[2019-01-22] MEDS: Multivitamin Therapeutic Tab PO SCH (10:57)
[2019-01-22] MEDS: Enoxaparin 40 mg Syringe SC SCH (11:06)
[2019-01-22 12:01] VITALS: PULSE 59
--- NOTE | 2019-01-22 15:40 | CP.PCM.DIS ---
<Lucinda Cisneros - Last Filed: 01/22/19 15:21> Provider - Provider Date of Admission: 01/20/19 01:36 Attending physician: Marlin Valverde DO Consults: 01/20/19 01:39 Neurology Consult Routine Comment: Consulting Provider: Matheus Mena Consulting Physician: Matheus Mena Reason for Consult: seizures 01/20/19 02:14 Social Work Referral Routine Comment: recurrent admission Physician Instructions: Reason For Exam: met criteria 01/20/19 02:57 Psychiatry Consult Routine Comment: Consulting Provider: Hollie Orellana Consulting Physician: Hollie Orellana Reason for Consult: Anxiety, bipolar disorder, depression Time Spent in preparation of Discharge (in minutes): 35 Hospital Course - Lab Results Lab Results: Most Recent Lab Values WBC 7.6 10^3/uL (4.5-11.0) 01/22/19 06:00 RBC 3.98 10^6/uL (3.5-6.1) 01/22/19 06:00 Hgb 11.3 g/dL (14.0-18.0) L 01/22/19 06:00 Hct 36.9 % (42.0-52.0) L 01/22/19 06:00 MCV 92.7 fl (80.0-105.0) 01/22/19 06:00 MCH 28.4 pg (25.0-35.0) 01/22/19 06:00 MCHC 30.6 g/dl (31.0-37.0) L 01/22/19 06:00 RDW 16.1 % (11.5-14.5) H 01/22/19 06:00 Plt Count 215 10^3/uL (120.0-450.0) 01/22/19 06:00 MPV 11.1 fl (7.0-11.0) H 01/22/19 06:00 Neut % (Auto) 53.8 % (50.0-68.0) 01/22/19 06:00 Lymph % (Auto) 34.6 % (22.0-35.0) 01/22/19 06:00 Elliott % (Auto) 6.9 % (1.0-6.0) H 01/22/19 06:00 Eos % (Auto) 4.0 % (1.5-5.0) 01/22/19 06:00 Baso % (Auto) 0.7 % (0.0-3.0) 01/22/19 06:00 Lymph # (Auto) 2.6 (1.2-3.4) 01/22/19 06:00 Elliott # (Auto) 0.5 (0.1-0.6) 01/22/19 06:00 Eos # (Auto) 0.3 (0.0-0.7) 01/22/19 06:00 Baso # (Auto) 0.05 K/mm3 (0.0-2.0) 01/22/19 06:00 Absolute Neuts (auto) 4.07 (1.4-6.5) 01/22/19 06:00 Sodium 140 mmol/L (132-148) 01/22/19 06:00 Potassium 4.1 mmol/L (3.6-5.0) 01/22/19 06:00 Chloride 108 mmol/L (98-107) H 01/22/19 06:00 Carbon Dioxide 25 mmol/L (21-33) 01/22/19 06:00 Anion Gap 11 (10-20) 01/22/19 06:00 BUN 16 mg/dL (7-21) 01/22/19 06:00 Creatinine 0.8 mg/dl (0.8-1.5) 01/22/19 06:00 Est GFR ( Amer) > 60 01/22/19 06:00 Est GFR (Non-Af Amer) > 60 01/22/19 06:00 POC Glucose (mg/dL) 79 mg/dL (65-110) 01/19/19 22:14 Random Glucose 108 mg/dL (70-110) 01/22/19 06:00 Calcium 9.3 mg/dL (8.4-10.5) 01/22/19 06:00 Phosphorus 4.5 mg/dL (2.5-4.5) 01/22/19 06:00 Magnesium 2.1 mg/dL (1.7-2.2) 01/22/19 06:00 Total Bilirubin 0.2 mg/dL (0.2-1.3) 01/22/19 06:00 AST 43 U/L (17-59) 01/22/19 06:00 ALT 47 U/L (7-56) 01/22/19 06:00 Alkaline Phosphatase 91 U/L (38-126) 01/22/19 06:00 Total Protein 7.0 g/dL (5.8-8.3) 01/22/19 06:00 Albumin 3.9 g/dL (3.0-4.8) 01/22/19 06:00 Globulin 3.1 gm/dL 01/22/19 06:00 Albumin/Globulin Ratio 1.3 (1.1-1.8) 01/22/19 06:00 Urine Color Yellow (YELLOW) 01/19/19 22:42 Urine Appearance Clear (CLEAR) 01/19/19 22:42 Urine pH 6.0 (4.7-8.0) 01/19/19 22:42 Ur Specific [place] <= 1.005 (1.005-1.035) 01/19/19 22:42 Urine Protein Negative mg/dL (<30 mg/dL) 01/19/19 22:42 Urine Glucose (UA) Negative mg/dL (NEGATIVE) 01/19/19 22:42 Urine Ketones Negative mg/dL (NEGATIVE) 01/19/19 22:42 Urine Blood Negative (NEGATIVE) 01/19/19 22:42 Urine Nitrate Negative (NEGATIVE) 01/19/19 22:42 Urine Bilirubin Negative (NEGATIVE) 01/19/19 22:42 Urine Urobilinogen 0.2 E.U./dL (<1 E.U./dL) 01/19/19 22:42 Ur Leukocyte Esterase Negative Kiersten/uL (NEGATIVE) 01/19/19 22:42 Salicylates < 1 mg/dL (2.0-20.0) L 01/19/19 22:27 Urine Opiates Screen Negative (NEGATIVE) 01/19/19 22:42 Urine Methadone Screen Negative (NEGATIVE) 01/19/19 22:42 Acetaminophen < 10.0 ug/ml (10.0-20.0) L 01/19/19 22:27 Ur Barbiturates Screen Negative (NEGATIVE) 01/19/19 22:42 Ur Phencyclidine Scrn Negative (NEGATIVE) 01/19/19 22:42 Ur Amphetamines Screen Negative (NEGATIVE) 01/19/19 22:42 U Benzodiazepines Scrn Positive (NEGATIVE) H 01/19/19 22:42 U Oth Cocaine Metabols Negative (NEGATIVE) 01/19/19 22:42 U Cannabinoids Screen Negative (NEGATIVE) 01/19/19 22:42 Alcohol, Quantitative 297 mg/dL (0-10) H 01/19/19 22:27 Physical Exam - Constitutional Appears: Non-toxic, No Acute Distress - Head Exam Head Exam: ATRAUMATIC, NORMOCEPHALIC - Eye Exam Eye Exam: EOMI, Normal appearance, PERRL - ENT Exam ENT Exam: Mucous Membranes Moist - Neck Exam Neck exam: Positive for: Normal Inspection - Respiratory Exam Respiratory Exam: Clear to Auscultation Bilateral, NORMAL BREATHING PATTERN. absent: Accessory Muscle Use, Respiratory Distress - Cardiovascular Exam Cardiovascular Exam: REGULAR RHYTHM, +S1, +S2. absent: Tachycardia, Systolic Murmur - GI/Abdominal Exam GI & Abdominal Exam: Normal Bowel Sounds, Soft. Mild RUQ tenderness absent: Distended, Firm, Guarding, Rebound, Tenderness - Extremities Exam Extremities exam: Positive for: normal inspection - Neurological Exam Neurological exam: AO x3, no focal motor/sensory deficits appreciated - Skin Skin Exam: Dry, Intact, Warm - Hospital Course Hospital Course: Upon admission, 28 year old male with past medical history of polysubstance abuse presenting with seizure. Patient was found outside on the street having a seizure after which EMS was called and patient was brought to the ED. History is limited to prior records as patient presents to be lethargic and does not respond to verbal questioning. [place] [facility]. During hospital course, head CT and EEG were unremarkable. Patient was started on aspiration/seizure precautions and patient did not have another seizure while at hospital. He was started on ativan and librium and tapered down dosage through hospital course. Neurology was consulted and recommended gabapentin 300mg TID for seizure prophylaxis for likely alcohol seizure. UDS positive for benzodiazepines and alcohol level was 297. Patient given banana bag and multivitamin tablet, thiamine and folic acid supplementation. Patient was informed of importance of PMD follow up, alcohol and tobacco cessation and psych follow up. Patient acknowledged importance of followup and alcohol cessation. All of patient's questions were answered and patient agreed with discharge today. Discharge Exam - Head Exam Head Exam: ATRAUMATIC, NORMAL INSPECTION, NORMOCEPHALIC Discharge Plan - Follow Up Plan Condition: GOOD Disposition: HOME/ ROUTINE Instructions: Quitting Smoking for Older Adults, Seizures, Adult (DC), Alcohol Withdrawal, Alcohol Abuse and Alcoholism (DC), Effects of Alcohol on Your Health Additional Instructions: Please follow up with Dr. Russell ([facility]) here at [facility] within 3-5 days. Their contact information is [phone] They are located right here at [facility], across from the inpatient pharmacy. Please abstain from drinking alcohol, as was discussed during your hospital stay. You have been prescribed Librium to take once every 8 hours ONLY NEEDED FOR WITHDRAWAL SYMPTOMS, for a total of 6 doses. Please take this medication as prescribed. Please report to the emergency room immediately if your symptoms return. Referrals: [facility] [Provider Group] <Marlin Valverde - Last Filed: 01/22/19 15:58> Provider - Provider Date of Admission: 01/20/19 01:36 Attending physician: Marlin Valverde DO Consults: 01/20/19 01:39 Neurology Consult Routine Comment: Consulting Provider: Matheus Mena Consulting Physician: Matheus Mena Reason for Consult: seizures 01/20/19 02:14 Social Work Referral Routine Comment: recurrent admission Physician Instructions: Reason For Exam: met criteria 01/20/19 02:57 Psychiatry Consult Routine Comment: Consulting Provider: Hollie Orellana Consulting Physician: Hollie Orellana Reason for Consult: Anxiety, bipolar disorder, depression Hospital Course - Lab Results Lab Results: Most Recent Lab Values WBC 7.6 10^3/uL (4.5-11.0) 01/22/19 06:00 RBC 3.98 10^6/uL (3.5-6.1) 01/22/19 06:00 Hgb 11.3 g/dL (14.0-18.0) L 01/22/19 06:00 Hct 36.9 % (42.0-52.0) L 01/22/19 06:00 MCV 92.7 fl (80.0-105.0) 01/22/19 06:00 MCH 28.4 pg (25.0-35.0) 01/22/19 06:00 MCHC 30.6 g/dl (31.0-37.0) L 01/22/19 06:00 RDW 16.1 % (11.5-14.5) H 01/22/19 06:00 Plt Count 215 10^3/uL (120.0-450.0) 01/22/19 06:00 MPV 11.1 fl (7.0-11.0) H 01/22/19 06:00 Neut % (Auto) 53.8 % (50.0-68.0) 01/22/19 06:00 Lymph % (Auto) 34.6 % (22.0-35.0) 01/22/19 06:00 Elliott % (Auto) 6.9 % (1.0-6.0) H 01/22/19 06:00 Eos % (Auto) 4.0 % (1.5-5.0) 01/22/19 06:00 Baso % (Auto) 0.7 % (0.0-3.0) 01/22/19 06:00 Lymph # (Auto) 2.6 (1.2-3.4) 01/22/19 06:00 Elliott # (Auto) 0.5 (0.1-0.6) 01/22/19 06:00 Eos # (Auto) 0.3 (0.0-0.7) 01/22/19 06:00 Baso # (Auto) 0.05 K/mm3 (0.0-2.0) 01/22/19 06:00 Absolute Neuts (auto) 4.07 (1.4-6.5) 01/22/19 06:00 Sodium 140 mmol/L (132-148) 01/22/19 06:00 Potassium 4.1 mmol/L (3.6-5.0) 01/22/19 06:00 Chloride 108 mmol/L (98-107) H 01/22/19 06:00 Carbon Dioxide 25 mmol/L (21-33) 01/22/19 06:00 Anion Gap 11 (10-20) 01/22/19 06:00 BUN 16 mg/dL (7-21) 01/22/19 06:00 Creatinine 0.8 mg/dl (0.8-1.5) 01/22/19 06:00 Est GFR ( Amer) > 60 01/22/19 06:00 Est GFR (Non-Af Amer) > 60 01/22/19 06:00 POC Glucose (mg/dL) 79 mg/dL (65-110) 01/19/19 22:14 Random Glucose 108 mg/dL (70-110) 01/22/19 06:00 Calcium 9.3 mg/dL (8.4-10.5) 01/22/19 06:00 Phosphorus 4.5 mg/dL (2.5-4.5) 01/22/19 06:00 Magnesium 2.1 mg/dL (1.7-2.2) 01/22/19 06:00 Total Bilirubin 0.2 mg/dL (0.2-1.3) 01/22/19 06:00 AST 43 U/L (17-59) 01/22/19 06:00 ALT 47 U/L (7-56) 01/22/19 06:00 Alkaline Phosphatase 91 U/L (38-126) 01/22/19 06:00 Total Protein 7.0 g/dL (5.8-8.3) 01/22/19 06:00 Albumin 3.9 g/dL (3.0-4.8) 01/22/19 06:00 Globulin 3.1 gm/dL 01/22/19 06:00 Albumin/Globulin Ratio 1.3 (1.1-1.8) 01/22/19 06:00 Urine Color Yellow (YELLOW) 01/19/19 22:42 Urine Appearance Clear (CLEAR) 01/19/19 22:42 Urine pH 6.0 (4.7-8.0) 01/19/19 22:42 Ur Specific [place] <= 1.005 (1.005-1.035) 01/19/19 22:42 Urine Protein Negative mg/dL (<30 mg/dL) 01/19/19 22:42 Urine Glucose (UA) Negative mg/dL (NEGATIVE) 01/19/19 22:42 Urine Ketones Negative mg/dL (NEGATIVE) 01/19/19 22:42 Urine Blood Negative (NEGATIVE) 01/19/19 22:42 Urine Nitrate Negative (NEGATIVE) 01/19/19 22:42 Urine Bilirubin Negative (NEGATIVE) 01/19/19 22:42 Urine Urobilinogen 0.2 E.U./dL (<1 E.U./dL) 03/13/19 22:42 Ur Leukocyte Esterase Negative Kiersten/uL (NEGATIVE) 01/19/19 22:42 Salicylates < 1 mg/dL (2.0-20.0) L 01/19/19 22:27 Urine Opiates Screen Negative (NEGATIVE) 01/19/19 22:42 Urine Methadone Screen Negative (NEGATIVE) 01/19/19 22:42 Acetaminophen < 10.0 ug/ml (10.0-20.0) L 01/19/19 22: Ur Barbiturates Screen Negative (NEGATIVE) 01/19/19 22:42 Ur Phencyclidine Scrn Negative (NEGATIVE) 01/19/19 22:42 Ur Amphetamines Screen Negative (NEGATIVE) 01/19/19 22:42 U Benzodiazepines Scrn Positive (NEGATIVE) H 01/19/19 22:42 U Oth Cocaine Metabols Negative (NEGATIVE) 01/19/19 22:42 U Cannabinoids Screen Negative (NEGATIVE) 01/19/19 22:42 Alcohol, Quantitative 297 mg/dL (0-10) H 01/19/19 22:27 Attending/Attestation - Attestation I have personally seen and examined this patient.: Yes I have fully participated in the care of the patient.: Yes I have reviewed all pertinent clinical information, including history, physical exam and plan: Yes Notes (Text): Patient seen and examined by me with resident at approximately 8:35 AM on 01/22/19. Case including discharge plan discussed with resident. Agree with above with following additions/corrections. Patient is a 28-year-old male with past medical history significant for polysubstance abuse, alcohol abuse, bipolar disorder, depression, and anxiety that presented to the emergency room with seizure. Please see H&P for full details. Patient was found to have seizure likely secondary to substance abuse and alcohol abuse. Patient was seen by neurology who recommended continuing gabapentin. Patient did not have a seizure in hospital. EEG per neurlogist showed a normal awake and drowsy electroencephalogram. Head CT per radiologist showed no evidence of acute intracranial hemorrhage, intracranial collection, mass effect or midline shift. Patient was placed on CIWA protocol for alcohol abuse. Patient was placed on Librium taper. Patient was treated with banana bag followed by oral thiamine, folic acid, multivitamins. Patient was counseled at length on cessation. Alcohol level on admission was 297. CIWA score on day of discharge was was 1. Patient did not have any alcohol withdrawal symptoms. Patient was counseled at length on tobacco cessation. Patient was seen by psychiatrist for bipolar disorder, depression and anxiety. Patient declined any treatment from psychiatrist. Patient was continued on his medications that were prescribed to him at his last psychiatric unit admission. Patient stated he had these medications at home and needed to fill some of his prescriptions that he has not filled as of yet. Compliance with medications discussed at length with patient. Patient had no leukocytosis. Patient was afebrile. Liver enzymes are within normal limits. Patient was feeling much better and was discharged home. On day of discharge, patient stated he was feeling much better. Patient denied any tremors. No abdominal pain. No nausea or vomiting. Patient was tolerating diet well. Patient denied chest pain or palpitations. No shortness of breath. No fevers or chills. No dysuria. No diarrhea or constipation. No suicidal or homicidal thoughts. Physical exam: General: Awake and alert, lying in bed in no acute distress. HEENT: Normocephalic, atraumatic, Extraocular muscles intact, pupils equal and reactive, no scleral icterus. Oropharynx is pink and moist. Neck is supple. Cardiovascular: Normal rhythm. Normal S1 and S2. No murmurs, rubs, or gallops appreciated. Pulmonary: Normal respiratory effort. No rhonchi, rales, or wheezing appreciated. Gastrointestinal: Soft. Nontender. Nondistended. Positive bowel sounds all 4 quadrants. No guarding. Musculoskeletal: Moves all extremities. No calf tenderness. No edema appreciated. Central nervous system: AAO x 3, CN 2-12 grossly intact. Dermatologic: Skin warm and dry. Please see chart for full details. Follow up instructions: Patient to follow-up with [facility] at [facility] within 3-5 days. Patient to stop all alcohol and polysubstance abuse. All instructions explained to the patient in detail. Patient both understands and agrees to all instructions. Written instructions also given. Time spent in discharging the patient including chart review, medication reconciliation, discussion with the patient, medical administrator, consultants, and nursing staff was approximately 35 minutes.
== END 2019-01-22 13:19 | disposition home or self-care (01) ==
LOC: ED 21:57 → ERH 01-20 01:36 → 2RNO 01-20 03:33
PROVIDERS: ADMIT Hospitalist; ATTEND Hospitalist
DX: R56.9 Unspecified convulsions (principal); F10.239 Alcohol dependence with withdrawal, unspecified; E78.1 Pure hyperglyceridemia; F19.94 Other psychoactive substance use, unspecified with psychoactive substance-induced mood disorder; F31.9 Bipolar disorder, unspecified; F41.9 Anxiety disorder, unspecified; Y90.8 Blood alcohol level of 240 mg/100 ml or more; Z72.0 Tobacco use; Z83.3 Family history of diabetes mellitus; Z90.49 Acquired absence of other specified parts of digestive tract
CPT/HCPCS: 36415; 70450; 71045; 80053; 80320; 80324; 80329; 80345; 80346; 80349; 80353; 80358; 80361; 81003; 82948; 83735; 83992; 84100; 85025; 93005; 96374; 99285; C9113; G0378; J1650; J2060; J3411; J7070

== ENCOUNTER 2019-01-24 02:52 | Emergency (ER) | payer MEDICAID ==
[2019-01-24 02:53] VITALS: BMI 31.1
[2019-01-24 03:06] VITALS: TEMP 98.2
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
[2019-01-24 07:55] VITALS: BP 110/67; PULSE 86; RESP 16; O2SAT 97
== END 2019-01-24 08:12 | disposition home or self-care (01) ==
LOC: ED 02:52
DX: F10.129 Alcohol abuse with intoxication, unspecified (principal)

== ENCOUNTER 2019-01-26 02:47 | Emergency (ER) | payer MEDICAID ==
[2019-01-26 02:49] VITALS: BMI 30.8
[2019-01-26] MEDS ORDERED: Sodium Chloride 0.9% 1,000 ML IV STA (03:08)
[2019-01-26 03:25] VITALS: TEMP 97.9
[2019-01-26 03:33] LABS: BASO # 0.06 K/mm3 (0.0-2.0); BASO % 0.7 % (0.0-3.0); EOS % 0.4 % (1.5-5.0); HEMOGLOBIN 12.3 g/dL (14.0-18.0); LYMPH # 2.7 (1.2-3.4); MEAN CELL VOLUME 90.2 fl (80.0-105.0); MEAN CORPUSCULAR HEMOGLOBIN 28.7 pg (25.0-35.0); MEAN CORPUSCULAR HGB CONC 31.8 g/dl (31.0-37.0); MEAN PLATELET VOLUME 10.2 fl (7.0-11.0); MONO # 0.4 (0.1-0.6); MONO % 4.4 % (1.0-6.0); RBC 4.29 10^6/uL (3.5-6.1); RED CELL DISTRIBUTION WIDTH 16.9 % (11.5-14.5); WHITE BLOOD COUNT 8.6 10^3/uL (4.5-11.0)
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
[2019-01-26 04:59] LABS: ALB/GLOB RATIO 1.2 (1.1-1.8); ALBUMIN 4.4 g/dL (3.0-4.8); ALT/SGPT 118 U/L (7-56); AST/SGOT 91 U/L (17-59); BLOOD UREA NITROGEN 20 mg/dL (7-21); CALCIUM 9.3 mg/dL (8.4-10.5); GFR NON-AFRICAN AMERICAN > 60
[2019-01-26 05:03] LABS: CK-MB 1.6 ng/mL (0.0-3.6)
[2019-01-26 05:29] VITALS: BP 145/89; PULSE 72; RESP 18; O2SAT 96
[2019-01-26 05:29] LABS: BARBITURATES, UR NEGATIVE (NEGATIVE)
[2019-01-26 05:30] LABS: BENZODIAZEPINES, UR POSITIVE (NEGATIVE); OPIATES, UR NEGATIVE (NEGATIVE); PHENCYCLIDINE, UR NEGATIVE (NEGATIVE)
--- NOTE | 2019-01-26 09:56 | RAD ---
Date of service: 01/26/2019 PROCEDURE: Left Ankle Radiographs. HISTORY: left ankle pain swelling COMPARISON: None available. FINDINGS: BONES: Normal. No fracture. JOINTS: Normal. No osteoarthritis. Ankle mortise maintained. Talar dome intact SOFT TISSUES: Mild soft tissue swelling lateral side OTHER FINDINGS: None. IMPRESSION: No evidence of fracture
--- NOTE | 2019-01-26 17:18 | CARD ---
APPROVED REPORT Date of service: 01/26/2019 EKG Measurement Heart [id number] <Conclusion> Sinus tachycardia Incomplete right bundle branch block Borderline ECG
== END 2019-01-26 05:30 | disposition home or self-care (01) ==
LOC: ED 02:47
DX: F15.10 Other stimulant abuse, uncomplicated (principal); F41.9 Anxiety disorder, unspecified
CPT/HCPCS: 73610; 80053; 80320; 80324; 80345; 80346; 80349; 80353; 80358; 80361; 82550; 82553; 82948; 83992; 85025; 93005; 96361; 96374; 99284; J2060; J7030

== ENCOUNTER 2019-01-27 23:50 | Emergency (ER) | payer MEDICAID ==
[2019-01-27 23:51] VITALS: BMI 30.8
[2019-01-28 00:23] VITALS: BP 121/83; PULSE 102; RESP 18; TEMP 97.8; O2SAT 96
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
--- NOTE | 2019-01-28 22:30 | CARD ---
APPROVED REPORT Date of service: 01/28/2019 EKG Measurement Heart [id number] CT [id number] <Conclusion> Sinus tachycardia Possible Left atrial enlargement Incomplete right bundle branch block NDSTT abnormalities Borderline ECG
== END 2019-01-28 01:13 | disposition left against medical advice (07) ==
LOC: ED 23:50
DX: R11.10 Vomiting, unspecified (principal); F17.210 Nicotine dependence, cigarettes, uncomplicated; F31.9 Bipolar disorder, unspecified; F41.9 Anxiety disorder, unspecified

== ENCOUNTER 2019-02-04 08:59 | Observation (INO) | payer MEDICAID ==
[2019-02-04 09:12] VITALS: BMI 31.4
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
[2019-02-04] MEDS ORDERED: Sodium Chloride 0.9% 1,000 ML IV STA (09:49)
[2019-02-04] MEDS ORDERED: Alum-Mag Hydrox-Simethicone Susp (30 mL) PO STA (09:49)
[2019-02-04 10:31] LABS: BASO # 0.06 K/mm3 (0.0-2.0); BASO % 0.7 % (0.0-3.0); EOS # 0.2 (0.0-0.7); EOS % 1.8 % (1.5-5.0); HEMOGLOBIN 11.1 g/dL (14.0-18.0); LYMPH # 2.5 (1.2-3.4); LYMPH % 30.7 % (22.0-35.0); MEAN CORPUSCULAR HEMOGLOBIN 29.4 pg (25.0-35.0); MEAN PLATELET VOLUME 9.9 fl (7.0-11.0); MONO # 0.4 (0.1-0.6); MONO % 4.5 % (1.0-6.0); RBC 3.77 10^6/uL (3.5-6.1); RED CELL DISTRIBUTION WIDTH 17.2 % (11.5-14.5); WHITE BLOOD COUNT 8.3 10^3/uL (4.5-11.0)
--- NOTE | 2019-02-04 10:38 | RAD ---
HISTORY: medical clearance COMPARISON: Chest x-ray performed 01/19/19 TECHNIQUE: Chest, one view. FINDINGS: Examination limited by habitus and hypoinflation. LUNGS: No focal consolidation. Please note that chest x-ray has limited sensitivity for the detection of pulmonary masses. PLEURA: No significant pleural effusion identified. No definite pneumothorax . CARDIOVASCULAR: Heart size appears top normal. No significant atherosclerotic calcification present. OSSEOUS STRUCTURES: No acute osseous abnormality identified. VISUALIZED UPPER ABDOMEN: Unremarkable. OTHER FINDINGS: None. IMPRESSION: Hypoinflation. No focal consolidation.
[2019-02-04 10:41] LABS: ACETAMINOPHEN < 10.0 ug/ml (10.0-20.0); SALICYLATE < 1 mg/dL (2.0-20.0)
[2019-02-04 10:42] LABS: ALB/GLOB RATIO 1.2 (1.1-1.8); ALBUMIN 4.2 g/dL (3.0-4.8); ALT/SGPT 65 U/L (7-56); AST/SGOT 76 U/L (17-59); BLOOD UREA NITROGEN 13 mg/dL (7-21); CALCIUM 8.9 mg/dL (8.4-10.5); GFR NON-AFRICAN AMERICAN > 60; LIPASE 39 U/L (23-300)
[2019-02-04] MEDS ORDERED: Multivitamin (MVI) 10 ML, Thiamine 100 MG, Folic Acid 1 MG in Sodium Chloride 0.9% 1,00... IV ONE (11:29)
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
[2019-02-04] MEDS ORDERED: Influenza Vaccine 60 mcg/0.5 mL SYR (4YR UP) IM ONE (16:53)
[2019-02-04] MEDS ORDERED: Pneumococcal 23-Valent Vaccine IM ONE (16:53)
--- NOTE | 2019-02-04 20:46 | CARD ---
APPROVED REPORT Date of service: 02/04/2019 EKG Measurement Heart [id number] <Conclusion> Sinus tachycardia Incomplete right bundle branch block Borderline ECG
[2019-02-05 07:43] VITALS: O2SAT 95
[2019-02-05] MEDS ORDERED: Multivitamin With Minerals Tab PO SCH (08:00)
[2019-02-05 08:11] LABS: ALBUMIN 3.3 g/dL (3.0-4.8); ALT/SGPT 47 U/L (7-56); AST/SGOT 44 U/L (17-59); BLOOD UREA NITROGEN 14 mg/dL (7-21); CALCIUM 9.1 mg/dL (8.4-10.5); GFR NON-AFRICAN AMERICAN > 60; MEAN CELL VOLUME 92.2 fl (80.0-105.0); MEAN CORPUSCULAR HEMOGLOBIN 27.7 pg (25.0-35.0); RBC 3.61 10^6/uL (3.5-6.1); RED CELL DISTRIBUTION WIDTH 16.8 % (11.5-14.5); WHITE BLOOD COUNT 4.5 10^3/uL (4.5-11.0)
[2019-02-05] MEDS ORDERED: Pantoprazole 40 mg EC Tab PO SCH (10:00)
[2019-02-05 13:31] VITALS: BP 131/76; RESP 18; TEMP 98.2
[2019-02-05 14:29] VITALS: PULSE 84
--- NOTE | 2019-02-05 17:53 | CP.PCM.DIS ---
<ArmondRudy - Last Filed: 02/05/19 17:44> Provider - Provider Date of Admission: 02/04/19 12:26 Attending physician: Nora De Leon MD Primary care physician: NO FAMILY PROVIDER Consults: 02/04/19 16:53 Inpatient REGISTERED DIETITIAN Core Measures Referral Routine Comment: Physician Instructions: Reason For Exam: EVALUATION Transition In Care/Readmission Reduction Routine Comment: Physician Instructions: Reason For Exam: EVALUATION 02/04/19 16:56 Social Work Referral Routine Comment: DISCHARGE PLANNING /ALCOHOL REHAB/ Physician Instructions: Reason For Exam: EVALUATION Time Spent in preparation of Discharge (in minutes): 35 Hospital Course - Lab Results Lab Results: Most Recent Lab Values WBC 4.5 10^3/uL (4.5-11.0) D 02/05/19 07:00 RBC 3.61 10^6/uL (3.5-6.1) 02/05/19 07:00 Hgb 10.0 g/dL (14.0-18.0) L 02/05/19 07:00 Hct 33.3 % (42.0-52.0) L 02/05/19 07:00 MCV 92.2 fl (80.0-105.0) 02/05/19 07:00 MCH 27.7 pg (25.0-35.0) 02/05/19 07:00 MCHC 30.0 g/dl (31.0-37.0) L 02/05/19 07:00 RDW 16.8 % (11.5-14.5) H 02/05/19 07:00 Plt Count 253 10^3/uL (120.0-450.0) 02/05/19 07:00 MPV 10.0 fl (7.0-11.0) 02/05/19 07:00 Neut % (Auto) 62.3 % (50.0-68.0) 02/04/19 10:05 Lymph % (Auto) 30.7 % (22.0-35.0) 02/04/19 10:05 Walton % (Auto) 4.5 % (1.0-6.0) 02/04/19 10:05 Eos % (Auto) 1.8 % (1.5-5.0) 02/04/19 10:05 Baso % (Auto) 0.7 % (0.0-3.0) 02/04/19 10:05 Lymph # (Auto) 2.5 (1.2-3.4) 02/04/19 10:05 Walton # (Auto) 0.4 (0.1-0.6) 02/04/19 10:05 Eos # (Auto) 0.2 (0.0-0.7) 02/04/19 10:05 Baso # (Auto) 0.06 K/mm3 (0.0-2.0) 02/04/19 10:05 Absolute Neuts (auto) 5.15 (1.4-6.5) 02/04/19 10:05 Sodium 141 mmol/L (132-148) 02/05/19 07:00 Potassium 3.9 mmol/L (3.6-5.0) 02/05/19 07:00 Chloride 111 mmol/L (98-107) H 02/05/19 07:00 Carbon Dioxide 22 mmol/L (21-33) 02/05/19 07:00 Anion Gap 12 (10-20) 02/05/19 07:00 BUN 14 mg/dL (7-21) 02/05/19 07:00 Creatinine 0.8 mg/dl (0.8-1.5) 02/05/19 07:00 Est GFR ( Amer) > 60 02/05/19 07:00 Est GFR (Non-Af Amer) > 60 02/05/19 07:00 Random Glucose 99 mg/dL (70-110) 02/05/19 07:00 Calcium 9.1 mg/dL (8.4-10.5) 02/05/19 07:00 Magnesium 1.7 mg/dL (1.7-2.2) 02/04/19 10:05 Total Bilirubin 0.2 mg/dL (0.2-1.3) 02/05/19 07:00 AST 44 U/L (17-59) 02/05/19 07:00 ALT 47 U/L (7-56) 02/05/19 07:00 Alkaline Phosphatase 84 U/L (38-126) 02/05/19 07:00 Troponin I < 0.01 ng/mL 02/04/19 10:05 Total Protein 6.5 g/dL (5.8-8.3) 02/05/19 07:00 Albumin 3.3 g/dL (3.0-4.8) 02/05/19 07:00 Globulin 3.2 gm/dL 02/05/19 07:00 Albumin/Globulin Ratio 1.0 (1.1-1.8) L 02/05/19 07:00 Lipase 39 U/L (23-300) 02/04/19 10:05 Salicylates < 1 mg/dL (2.0-20.0) L 02/04/19 10:05 Acetaminophen < 10.0 ug/ml (10.0-20.0) L 02/04/19 10:05 Alcohol, Quantitative < 10 mg/dL (0-10) 02/04/19 10:05 - Hospital Course Hospital Course: Rudy Leahy, PGY1 Discharge Summary for Dr. De Leon Patient is a 28 year old male with past medical history of polysubstance abuse, alcohol abuse, alcohol withdrawal, bipolar disorder, depression, anxiety, and seizures, who presented with shortness of breath, chest pain, and abdominal pain. Patient states his last drink was last night as he was trying to quit. In the morning, patient felt tremulous and took 3 pills of librium however his symptoms did not improve. Patient subsequently presented to emergency department with withdrawal symptoms. Patient has been admitted multiple times to [facility] for alcohol withdrawal and detox at [facility]. Patient admits to drinking 3-4 pints of vodka daily. Patient admitted for alcohol withdrawal. He was placed on CIWA protocol and monitored closely on telemetry. Patient was placed on librium 25mg PO q8 and previously ativan 1mg IV q4 prn for withdrawal signs and symptoms. Overnight, patient's last CIWA score was 1. He also presented with mildly elevated liver enzymes: AST/ALT 76/65. EKG only showed sinus tachy on admission. CXR showed no consolidation or active disease. Patients vitals were otherwise stable. He is AAOx3. Occasionally he had some mild tremors on exam, otherwise no tactile/auditory/visual hallucinations, anxiety, diaphoresis. Patient said he is scheduled to make an appointment with a detox clinic tomorrow, 02/06/19. During repeat labs, patient's LFTs improved/downtrended. He was tapered off librium to 25mg BID. He was explained that he needed to be tapered off before a safe discharge. Patient was understanding. On repeat examination later in the afternoon, patient CIWA was 0. Given all these findings, patient is hemod ynamically stable for discharge. Patient will be discharged on a librium taper. He was told to follow up with his detox clinic tomorrow. Patient also given scripts for some of his home medications upon discharge. Patient safe to be discharged home and to follow up with his PMD. Discharge Exam - Head Exam Head Exam: ATRAUMATIC, NORMAL INSPECTION, NORMOCEPHALIC - Eye Exam Eye Exam: EOMI, Normal appearance, PERRL Pupil Exam: NORMAL ACCOMODATION - ENT Exam ENT Exam: Normal Exam - Neck Exam Neck exam: Normal Inspection - Respiratory Exam Respiratory Exam: Clear to PA & Lateral, NORMAL BREATHING PATTERN. absent: Rales, Rhonchi, Wheezes - Cardiovascular Exam Cardiovascular Exam: RRR, +S1, +S2 - GI/Abdominal Exam GI & Abdominal Exam: Normal Bowel Sounds - Extremities Exam Extremities exam: normal inspection, pedal pulses present - Neurological Exam Neurological exam: Alert, CN II-XII Intact, Normal Gait, Oriented x3, Reflexes Normal - Psychiatric Exam Psychiatric exam: Normal Affect, Normal Mood - Skin Skin Exam: Dry, Intact, Normal Color, Warm Discharge Plan - Discharge Medications Prescriptions: chlordiazePOXIDE [Librium] 25 mg PO DAILY #5 cap Pantoprazole [Protonix EC Tab] 40 mg PO DAILY #14 ect QUEtiapine [SEROquel] 150 mg PO DAILY #5 tab QUEtiapine [SEROquel] 300 mg PO HS #5 tab - Follow Up Plan Condition: GUARDED Disposition: HOME/ ROUTINE Instructions: Alcohol Use - When Is Drinking a Problem?, Alcohol Withdrawal, Alcohol Abuse and Alcoholism (DC), Effects of Alcohol on Your Health Additional Instructions: Please follow-up with your Primary Medical Doctor, Dr Batres within 7 days of discharge so he may be aware of this hospital stay. You stated you have an appointment with a rehab center tomorrow, it is im perative you follow-up with this rehab center as this is necessary to address your alcohol issues and future health. You will be discharged 5 tablets of librium 25mg which you should take as follows upon discharge: Day 1: librium 25mg every 8 hours Day 2: librium 25mg every 12 hours Day 3: librium 25mg once You stated you ran out of your seroquel thus you were given a short 5-day refill of your home seroquel 150mg during the day and 300mg at night. For additional refills you will need to follow-up with your psychiatrist, Dr Orellana. Your home medications are the following - you may resume these medications unless told otherwise by a doctor - these medications include trazodone 50mg at night, hydroxyzine 100mg twice a day, thiamine 50mg daily, seroquel 150mg daytime and 300mg nighttime, multivitamin daily, gabapentin 600mg three times a day, folic acid 1mg daily, tricor 48mg daily, prozac 20mg daily If symptoms return promptly go to your nearest emergency department. Referrals: FAMILY PROVIDER,NO [Primary Care Provider] - <Nora De Leon - Last Filed: 02/06/19 07:19> Provider - Provider Date of Admission: 02/04/19 12:26 Attending physician: Nora De Leon MD Primary care physician: MALENA FAMILY PROVIDER Consults: 02/04/19 16:53 Inpatient REGISTERED DIETITIAN Core Measures Referral Routine Comment: Physician Instructions: Reason For Exam: EVALUATION Transition In Care/Readmission Reduction Routine Comment: Physician Instructions: Reason For Exam: EVALUATION 02/04/19 16:56 Social Work Referral Routine Comment: DISCHARGE PLANNING /ALCOHOL REHAB/ Physician Instructions: Reason For Exam: EVALUATION Hospital Course - Lab Results Lab Results: Most Recent Lab Values WBC 4.5 10^3/uL (4.5-11.0) D 02/05/19 07:00 RBC 3.61 10^6/uL (3.5-6.1) 02/05/19 07:00 Hgb 10.0 g/dL (14.0-18.0) L 02/05/19 07:00 Hct 33.3 % (42.0-52.0) L 02/05/19 07:00 MCV 92.2 fl (80.0-105.0) 02/05/19 07:00 MCH 27.7 pg (25.0-35.0) 02/05/19 07:00 MCHC 30.0 g/dl (31.0-37.0) L 02/05/19 07:00 RDW 16.8 % (11.5-14.5) H 02/05/19 07:00 Plt Count 253 10^3/uL (120.0-450.0) 02/05/19 07:00 MPV 10.0 fl (7.0-11.0) 02/05/19 07:00 Neut % (Auto) 62.3 % (50.0-68.0) 02/04/19 10:05 Lymph % (Auto) 30.7 % (22.0-35.0) 02/04/19 10:05 Walton % (Auto) 4.5 % (1.0-6.0) 02/04/19 10:05 Eos % (Auto) 1.8 % (1.5-5.0) 02/04/19 10:05 Baso % (Auto) 0.7 % (0.0-3.0) 02/04/19 10:05 Lymph # (Auto) 2.5 (1.2-3.4) 02/04/19 10:05 Walton # (Auto) 0.4 (0.1-0.6) 02/04/19 10:05 Eos # (Auto) 0.2 (0.0-0.7) 02/04/19 10:05 Baso # (Auto) 0.06 K/mm3 (0.0-2.0) 02/04/19 10:05 Absolute Neuts (auto) 5.15 (1.4-6.5) 02/04/19 10:05 Sodium 141 mmol/L (132-148) 02/05/19 07:00 Potassium 3.9 mmol/L (3.6-5.0) 02/05/19 07:00 Chloride 111 mmol/L (98-107) H 02/05/19 07:00 Carbon Dioxide 22 mmol/L (21-33) 02/05/19 07:00 Anion Gap 12 (10-20) 02/05/19 07:00 BUN 14 mg/dL (7-21) 02/05/19 07:00 Creatinine 0.8 mg/dl (0.8-1.5) 02/05/19 07:00 Est GFR ( Amer) > 60 02/05/19 07:00 Est GFR (Non-Af Amer) > 60 02/05/19 07:00 Random Glucose 99 mg/dL (70-110) 02/05/19 07:00 Calcium 9.1 mg/dL (8.4-10.5) 02/05/19 07:00 Magnesium 1.7 mg/dL (1.7-2.2) 02/04/19 10:05 Total Bilirubin 0.2 mg/dL (0.2-1.3) 02/05/19 07:00 AST 44 U/L (17-59) 02/05/19 07:00 ALT 47 U/L (7-56) 02/05/19 07:00 Alkaline Phosphatase 84 U/L (38-126) 02/05/19 07:00 Troponin I < 0.01 ng/mL 02/04/19 10:05 Total Protein 6.5 g/dL (5.8-8.3) 02/05/19 07:00 Albumin 3.3 g/dL (3.0-4.8) 02/05/19 07:00 Globulin 3.2 gm/dL 02/05/19 07:00 Albumin/Globulin Ratio 1.0 (1.1-1.8) L 02/05/19 07:00 Lipase 39 U/L (23-300) 02/04/19 10:05 Salicylates < 1 mg/dL (2.0-20.0) L 02/04/19 10:05 Acetaminophen < 10.0 ug/ml (10.0-20.0) L 02/04/19 10:05 Alcohol, Quantitative < 10 mg/dL (0-10) 02/04/19 10:05 Attending/Attestation - Attestation I have personally seen and examined this patient.: Yes I have fully participated in the care of the patient.: Yes I have reviewed all pertinent clinical information, including history, physical exam and plan: Yes Notes (Text): 02/05/19 28 year old male with past medical history of alcohol abuse, polysubstance abuse, bipolar, depression and seizures who presented with alcohol withdrawal symptoms. Started on banana bag, librium and ativan prn with improvement of symptoms. He also initially had mild transaminitis likely secondary to ETOH abuse which also improved. He was counselled on alcohol cessation. He states he is working on going to detox program tomorrow. Overall his withdrawal symptoms improved. He is discharged home on tapering librium. Counselled on alcohol abstinence. Nora De Leon MD Hospitalist.
== END 2019-02-05 16:40 | disposition home or self-care (01) ==
LOC: ED 08:59 → ERH 12:26 → 2RNO 16:17
PROVIDERS: ADMIT Internal Medicine; ATTEND Internal Medicine
DX: F10.239 Alcohol dependence with withdrawal, unspecified (principal); E78.5 Hyperlipidemia, unspecified; F31.9 Bipolar disorder, unspecified; F41.9 Anxiety disorder, unspecified; Z87.11 Personal history of peptic ulcer disease; F17.210 Nicotine dependence, cigarettes, uncomplicated; Z90.49 Acquired absence of other specified parts of digestive tract; Z83.3 Family history of diabetes mellitus; Y90.0 Blood alcohol level of less than 20 mg/100 ml
CPT/HCPCS: 36415; 71045; 80053; 80320; 80329; 83690; 83735; 84484; 85025; 85027; 93005; 96361; 96374; 96375; 96376; 99285; G0378; J1885; J2060; J3411; J7030

== ENCOUNTER 2019-02-17 13:22 | Emergency (ER) | payer MEDICAID ==
[2019-02-17 13:30] VITALS: BMI 31.7
[2019-02-17 13:37] VITALS: BP 122/71; PULSE 87; RESP 18; TEMP 98.2; O2SAT 98
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
== END 2019-02-17 15:07 | disposition home or self-care (01) ==
LOC: ED 13:22
DX: F41.9 Anxiety disorder, unspecified (principal)
CPT/HCPCS: 96374; 96375; 99283; J2060; J2405

== ENCOUNTER 2019-02-26 21:02 | Emergency (ER) | payer MEDICAID, OTHER ==
[2019-02-26 21:02] VITALS: BMI 31.7
[2019-02-26 21:40] VITALS: TEMP 98.2
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
[2019-02-26 22:36] VITALS: BP 137/67; RESP 16; O2SAT 100
[2019-02-26 22:55] VITALS: PULSE 90
--- NOTE | 2019-02-27 09:11 | CARD ---
APPROVED REPORT Date of service: 02/26/2019 EKG Measurement Heart [id number] <Conclusion> Sinus tachycardia Incomplete right bundle branch block Borderline ECG
== END 2019-02-26 23:10 | disposition home or self-care (01) ==
LOC: ED 21:02
DX: F19.10 Other psychoactive substance abuse, uncomplicated (principal); E78.5 Hyperlipidemia, unspecified; F17.210 Nicotine dependence, cigarettes, uncomplicated; M62.82 Rhabdomyolysis; R56.9 Unspecified convulsions

== ENCOUNTER 2019-02-27 18:16 | Emergency (ER) | payer MEDICAID ==
[2019-02-27 18:16] VITALS: BMI 31.7
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
[2019-02-27 19:54] LABS: ALB/GLOB RATIO 1.5 (1.1-1.8); ALBUMIN 4.6 g/dL (3.0-4.8); ALT/SGPT 75 U/L (7-56); AST/SGOT 55 U/L (17-59); BLOOD UREA NITROGEN 15 mg/dL (7-21); CALCIUM 9.5 mg/dL (8.4-10.5); GFR NON-AFRICAN AMERICAN > 60
[2019-02-27 20:00] LABS: BASO # 0.03 K/mm3 (0.0-2.0); BASO % 0.5 % (0.0-3.0); EOS # 0.1 (0.0-0.7); EOS % 1.1 % (1.5-5.0); HEMOGLOBIN 10.8 g/dL (14.0-18.0); LYMPH # 2.5 (1.2-3.4); LYMPH % 39.8 % (22.0-35.0); MEAN CELL VOLUME 87.9 fl (80.0-105.0); MEAN CORPUSCULAR HEMOGLOBIN 27.3 pg (25.0-35.0); MEAN PLATELET VOLUME 10.8 fl (7.0-11.0); MONO # 0.5 (0.1-0.6); MONO % 7.4 % (1.0-6.0); RBC 3.96 10^6/uL (3.5-6.1); RED CELL DISTRIBUTION WIDTH 17.6 % (11.5-14.5); WHITE BLOOD COUNT 6.3 10^3/uL (4.5-11.0)
[2019-02-27 20:01] LABS: TROPONIN I < 0.01 ng/mL
[2019-02-27 20:07] LABS: FREE T4 1.07 ng/dL (0.78-2.19)
[2019-02-27 20:22] VITALS: BP 121/79; RESP 14; TEMP 98.1
[2019-02-27 20:26] VITALS: PULSE 94; O2SAT 96
--- NOTE | 2019-02-28 05:49 | RAD ---
Date of service: 02/27/2019 HISTORY: medical clearance COMPARISON: Comparison is made with 02/04/2019 TECHNIQUE: 1 view obtained. FINDINGS: LUNGS: No active pulmonary disease. PLEURA: No significant pleural effusion identified, no pneumothorax apparent. CARDIOVASCULAR: No aortic atherosclerotic calcification present. Normal cardiac size. No pulmonary vascular congestion. OSSEOUS STRUCTURES: No significant abnormalities. VISUALIZED UPPER ABDOMEN: Normal. OTHER FINDINGS: None. IMPRESSION: No active disease.
--- NOTE | 2019-02-28 19:10 | CARD ---
APPROVED REPORT Date of service: 02/27/2019 EKG Measurement Heart [id number] <Conclusion> Sinus tachycardia Incomplete right bundle branch block [facility] [place] ECG
== END 2019-02-27 20:26 | disposition home or self-care (01) ==
LOC: ED 18:16
DX: F41.9 Anxiety disorder, unspecified (principal); E78.5 Hyperlipidemia, unspecified; F17.210 Nicotine dependence, cigarettes, uncomplicated

== ENCOUNTER 2019-03-02 10:17 | Emergency (ER) | payer MEDICAID ==
[2019-03-02 10:19] VITALS: BMI 23.6
[2019-03-02 10:24] VITALS: RESP 18; TEMP 98.1
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
[2019-03-02] MEDS ORDERED: Sodium Chloride 0.9% 1,000 ML IV STA (10:37)
[2019-03-02 10:43] LABS: BASO # 0.05 K/mm3 (0.0-2.0); EOS # 0.1 (0.0-0.7); EOS % 1.8 % (1.5-5.0); HEMOGLOBIN 12.4 g/dL (14.0-18.0); LYMPH # 2.7 (1.2-3.4); MEAN CELL VOLUME 86.1 fl (80.0-105.0); MEAN CORPUSCULAR HEMOGLOBIN 27.3 pg (25.0-35.0); MEAN CORPUSCULAR HGB CONC 31.7 g/dl (31.0-37.0); MONO # 0.4 (0.1-0.6); MONO % 7.6 % (1.0-6.0); RBC 4.54 10^6/uL (3.5-6.1); RED CELL DISTRIBUTION WIDTH 17.8 % (11.5-14.5); WHITE BLOOD COUNT 5.1 10^3/uL (4.5-11.0)
[2019-03-02 10:56] LABS: ACETAMINOPHEN < 10.0 ug/ml (10.0-20.0); SALICYLATE < 1 mg/dL (2.0-20.0)
[2019-03-02 10:59] LABS: ALB/GLOB RATIO 1.5 (1.1-1.8); ALBUMIN 4.5 g/dL (3.0-4.8); ALT/SGPT 89 U/L (7-56); AST/SGOT 74 U/L (17-59); BLOOD UREA NITROGEN 15 mg/dL (7-21); CALCIUM 8.7 mg/dL (8.4-10.5); GFR NON-AFRICAN AMERICAN > 60; LIPASE 44 U/L (23-300)
[2019-03-02 11:22] LABS: CK-MB 1.7 ng/mL (0.0-3.6)
[2019-03-02 11:42] LABS: PH,URINE 6.5 (4.7-8.0); URINE BILIRUBIN NEGATIVE (NEGATIVE); URINE BLOOD NEGATIVE (NEGATIVE); URINE GLUCOSE (UA) NEGATIVE (NEGATIVE); URINE LEUKOCYTE ESTERASE NEGATIVE Leu/uL (NEGATIVE); URINE PROTEIN NEGATIVE mg/dL (<30 mg/dL); URINE UROBILINOGEN 0.2 E.U./dL (<1 E.U./dL)
[2019-03-02 11:46] LABS: URINE APPEARANCE CLEAR (CLEAR); URINE COLOR YELLOW (YELLOW)
[2019-03-02 11:58] LABS: BENZODIAZEPINES, UR NEGATIVE (NEGATIVE)
[2019-03-02 12:10] LABS: BARBITURATES, UR NEGATIVE (NEGATIVE); OPIATES, UR NEGATIVE (NEGATIVE); PHENCYCLIDINE, UR NEGATIVE (NEGATIVE)
--- NOTE | 2019-03-02 12:38 | CT ---
Date of service: 03/02/2019 PROCEDURE: CT HEAD WITHOUT CONTRAST. HISTORY: seizure?? COMPARISON: Noncontrast head CT performed 01/20/19 TECHNIQUE: Axial computed tomography images were obtained through the head/brain without intravenous contrast. Radiation dose: Total exam DLP = 1136.53 mGy-cm. This CT exam was performed using one or more of the following dose reduction techniques: Automated exposure control, adjustment of the mA and/or kV according to patient size, and/or use of iterative reconstruction technique. FINDINGS: HEMORRHAGE: No intracranial hemorrhage. BRAIN: No mass effect or edema. The mack white matter differentiation appears intact. Please note that MRI with diffusion imaging is more sensitive in the detection of acute ischemic event. VENTRICLES: No hydrocephalus. CALVARIUM: Unremarkable. PARANASAL SINUSES: Unremarkable as visualized. No significant inflammatory changes. MASTOID AIR CELLS: Unremarkable as visualized. No inflammatory changes. OTHER FINDINGS: None. IMPRESSION: No acute intracranial pathology identified.
--- NOTE | 2019-03-02 12:39 | RAD ---
HISTORY: medical clearance, seizure? COMPARISON: Chest x-ray performed 02/27/19 TECHNIQUE: Chest, one view. FINDINGS: Examination limited by habitus and hypoinflation. LUNGS: No focal consolidation. Please note that chest x-ray has limited sensitivity for the detection of pulmonary masses. PLEURA: No significant pleural effusion identified. No definite pneumothorax . CARDIOVASCULAR: Borderline cardiomegaly likely exaggerated by hypoinflation. OSSEOUS STRUCTURES: No acute osseous abnormality identified. VISUALIZED UPPER ABDOMEN: Unremarkable. OTHER FINDINGS: None. IMPRESSION: Hypoinflation. No focal consolidation.
[2019-03-02] MEDS ORDERED: Multivitamin (MVI) 10 ML, Thiamine 100 MG, Folic Acid 1 MG in Dextrose 5% In Water 1,00... IV ONE (13:04)
[2019-03-02 13:23] LABS: TROPONIN I < 0.01 ng/mL
[2019-03-02 16:59] VITALS: BP 125/78; PULSE 80; O2SAT 97
--- NOTE | 2019-03-02 18:38 | CARD ---
APPROVED REPORT Date of service: 03/02/2019 EKG Measurement Heart [id number] NM [id number] [id number] <Conclusion> Normal sinus rhythm rSr Pattern in V1.
== END 2019-03-02 18:00 | disposition home or self-care (01) ==
LOC: ED 10:17
DX: F10.129 Alcohol abuse with intoxication, unspecified (principal); F41.9 Anxiety disorder, unspecified; F17.210 Nicotine dependence, cigarettes, uncomplicated
CPT/HCPCS: 70450; 71045; 80053; 80320; 80324; 80329; 80345; 80346; 80349; 80353; 80358; 80361; 81003; 82550; 82553; 82948; 83690; 83735; 83992; 84484; 85025; 93005; 96374; 99285; J3411; J7030; J7070

== ENCOUNTER 2019-03-02 21:33 | Inpatient (IN) | payer MEDICAID ==
[2019-03-02 22:08] VITALS: BMI 29.5
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
[2019-03-02] MEDS ORDERED: Sodium Chloride 0.9% 1,000 ML IV SCH (23:00)
[2019-03-02 23:51] LABS: BASO # 0.06 K/mm3 (0.0-2.0); EOS # 0.1 (0.0-0.7); EOS % 0.8 % (1.5-5.0); HEMOGLOBIN 12.1 g/dL (14.0-18.0); LYMPH # 2.8 (1.2-3.4); LYMPH % 47.8 % (22.0-35.0); MEAN CELL VOLUME 85.3 fl (80.0-105.0); MEAN CORPUSCULAR HEMOGLOBIN 27.3 pg (25.0-35.0); MEAN PLATELET VOLUME 9.9 fl (7.0-11.0); MONO # 0.4 (0.1-0.6); MONO % 6.2 % (1.0-6.0); RBC 4.43 10^6/uL (3.5-6.1); RED CELL DISTRIBUTION WIDTH 17.6 % (11.5-14.5); WHITE BLOOD COUNT 5.9 10^3/uL (4.5-11.0)
[2019-03-03 00:12] LABS: PH,URINE 7.5 (4.7-8.0); URINE BILIRUBIN NEGATIVE (NEGATIVE); URINE BLOOD NEGATIVE (NEGATIVE); URINE GLUCOSE (UA) NEGATIVE (NEGATIVE); URINE LEUKOCYTE ESTERASE NEGATIVE Leu/uL (NEGATIVE); URINE PROTEIN NEGATIVE mg/dL (<30 mg/dL); URINE UROBILINOGEN 0.2 E.U./dL (<1 E.U./dL)
[2019-03-03 00:13] LABS: URINE APPEARANCE CLEAR (CLEAR); URINE COLOR YELLOW (YELLOW)
[2019-03-03 00:13] LABS: ALB/GLOB RATIO 1.4 (1.1-1.8); ALBUMIN 4.4 g/dL (3.0-4.8); ALT/SGPT 84 U/L (7-56); AST/SGOT 62 U/L (17-59); BLOOD UREA NITROGEN 14 mg/dL (7-21); CALCIUM 8.7 mg/dL (8.4-10.5); GFR NON-AFRICAN AMERICAN > 60
[2019-03-03 00:15] LABS: ACETAMINOPHEN < 10.0 ug/ml (10.0-20.0); SALICYLATE < 1 mg/dL (2.0-20.0)
[2019-03-03 00:35] LABS: CK-MB 1.5 ng/mL (0.0-3.6)
[2019-03-03 00:37] LABS: BARBITURATES, UR NEGATIVE (NEGATIVE); BENZODIAZEPINES, UR POSITIVE (NEGATIVE); OPIATES, UR NEGATIVE (NEGATIVE); PHENCYCLIDINE, UR NEGATIVE (NEGATIVE)
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
[2019-03-03] MEDS ORDERED: Multivitamin (MVI) 10 ML, Thiamine 100 MG, Folic Acid 1 MG in Sodium Chloride 0.9% 1,00... IV ONE (03:01)
[2019-03-03] MEDS ORDERED: Pantoprazole 40 mg EC Tab PO SCH (06:00)
[2019-03-03 06:52] LABS: BASO # 0.08 K/mm3 (0.0-2.0); BASO % 1.4 % (0.0-3.0); EOS # 0.1 (0.0-0.7); EOS % 1.8 % (1.5-5.0); HEMOGLOBIN 10.9 g/dL (14.0-18.0); LYMPH # 2.8 (1.2-3.4); LYMPH % 49.5 % (22.0-35.0); MEAN CELL VOLUME 86.1 fl (80.0-105.0); MEAN CORPUSCULAR HEMOGLOBIN 26.6 pg (25.0-35.0); MEAN CORPUSCULAR HGB CONC 30.9 g/dl (31.0-37.0); MEAN PLATELET VOLUME 9.9 fl (7.0-11.0); MONO # 0.4 (0.1-0.6); MONO % 6.8 % (1.0-6.0); RBC 4.1 10^6/uL (3.5-6.1); RED CELL DISTRIBUTION WIDTH 17.9 % (11.5-14.5); WHITE BLOOD COUNT 5.6 10^3/uL (4.5-11.0)
[2019-03-03 07:16] LABS: TROPONIN I < 0.01 ng/mL
[2019-03-03 07:33] LABS: ALB/GLOB RATIO 1.4 (1.1-1.8); ALBUMIN 3.8 g/dL (3.0-4.8); ALT/SGPT 73 U/L (7-56); AST/SGOT 58 U/L (17-59); BLOOD UREA NITROGEN 15 mg/dL (7-21); CALCIUM 8.3 mg/dL (8.4-10.5); GFR NON-AFRICAN AMERICAN > 60
[2019-03-03 08:16] LABS: CK-MB 1.1 ng/mL (0.0-3.6)
[2019-03-03] MEDS ORDERED: Enoxaparin 40 mg Syringe SC SCH (10:00)
--- NOTE | 2019-03-03 10:44 | CARD ---
APPROVED REPORT Date of service: 03/03/2019 EKG Measurement Heart [id number] <Conclusion> Normal sinus rhythm Incomplete right bundle branch block Borderline ECG
[2019-03-03] MEDS: Pantoprazole 40 mg EC Tab PO SCH (10:47)
[2019-03-03] MEDS: Multivitamin With Minerals Tab PO SCH (10:48)
--- NOTE | 2019-03-03 10:49 | CARD ---
APPROVED REPORT Date of service: 03/02/2019 EKG Measurement Heart [id number] <Conclusion> Normal sinus rhythm Normal ECG
[2019-03-04 06:27] LABS: BASO # 0.03 K/mm3 (0.0-2.0); BASO % 0.5 % (0.0-3.0); EOS # 0.2 (0.0-0.7); EOS % 3.1 % (1.5-5.0); HEMOGLOBIN 11.2 g/dL (14.0-18.0); LYMPH # 2.4 (1.2-3.4); LYMPH % 38.3 % (22.0-35.0); MEAN CELL VOLUME 86.4 fl (80.0-105.0); MEAN CORPUSCULAR HEMOGLOBIN 27.3 pg (25.0-35.0); MEAN CORPUSCULAR HGB CONC 31.5 g/dl (31.0-37.0); MEAN PLATELET VOLUME 9.9 fl (7.0-11.0); MONO # 0.3 (0.1-0.6); MONO % 5.2 % (1.0-6.0); RBC 4.11 10^6/uL (3.5-6.1); RED CELL DISTRIBUTION WIDTH 16.9 % (11.5-14.5); WHITE BLOOD COUNT 6.1 10^3/uL (4.5-11.0)
[2019-03-04 06:34] LABS: ALB/GLOB RATIO 1.3 (1.1-1.8); ALBUMIN 3.7 g/dL (3.0-4.8); ALT/SGPT 72 U/L (7-56); AST/SGOT 75 U/L (17-59); BLOOD UREA NITROGEN 14 mg/dL (7-21); CALCIUM 8.6 mg/dL (8.4-10.5); GFR NON-AFRICAN AMERICAN > 60
[2019-03-04] MEDS ORDERED: Potassium Chloride 20 mEq ER Tab PO ONE (07:29)
--- NOTE | 2019-03-04 07:43 | CON ---
DATE: 03/03/2019 HISTORY OF PRESENT ILLNESS: The patient is a 28-year-old with a psychiatric history of severe alcohol dependency, depression, anxiety, self-reported ADHD, and multiple admissions to medical floor for alcohol withdrawal, as well as psychiatric unit for alcohol withdrawal as well as symptoms of mood disorder, depression, positive chronic noncompliance with aftercare appointments and medications and chronic resistance to inpatient rehab, not currently linked to any services or medications, who was admitted to the medical floor after he presented again in alcohol and heroin withdrawal, reporting chest pain and in his stomach. Psychiatry was consulted because of the patient's significant substance use and mood and behavioral issues. I met with the patient who said that he is knowledgeable of me from his most prior admissions. He used to be in my care at [facility] so he was referred for a higher level of monitoring due to his numerous relapses and inconsistent followup. The patient indicates that he is supposed to be following up at [facility] dual diagnosis program, has been postponing intake and it has been difficult for him to abstain from alcohol. He has been drinking a great deal of alcohol and also used heroin recently, which is progression from his usual substances. The patient reports that he only recently used heroin this week and has never used it before and he does not plan to do it ever again. However, the patient is currently in alcohol withdrawal. He reports no depression. Denies any hallucinations at this time. He is coherent. He is responsive, communicative, friendly with this provider, his responses are consistent. There have been no major behavioral issues on the unit. The patient reports plan to follow up with [facility] outpatient dual diagnosis program once he is medically cleared from the medical floor. I discussed hospital medications for the patient while he is involved in management on the medical floor, while the patient is agreeable to restart Seroquel, Prozac, as well as the rest of the medications prescribed for him. His insight is fair. His judgment is poor. SOCIAL HISTORY: The patient currently resides with one of his friends. He has a history of cocaine, Xanax, and marijuana use; however, alcohol dependency has been his main problem for 4 years. His alcohol dependency escalated after a breakup from the boyfriend Jareth about 2 years ago and he used alcohol to cope with it. Now he is over his ex-boyfriend and has debilitating alcohol dependency. The patient is not employed and has recently started using heroin. PAST PSYCHIATRIC HISTORY: The patient has at least 5 to 6 admissions to the medical [facility] in the past year as well as involuntary commitment to [facility]. Most recent admission was in 01/2019 and he was discharged on Prozac 20 mg, Neurontin 600 mg t.i.d., Vistaril 100 mg b.i.d., Ativan 1 mg b.i.d., Seroquel 200 mg at a.m. and 300 mg at bedtime, and trazodone 50 mg at bedtime. The patient has a history of suicide attempts as well as suicidal gestures and they generally are when he is intoxicated. The patient reports during our meeting today that he has mentioned prior treatment with trazodone and should not be prescribed this medication any further. ASSESSMENT: Alcohol dependency, severe; alcohol induced anxiety disorder; alcohol induced mood disorder; alcohol withdrawal; major depressive disorder, by history; generalized anxiety disorder, by history; and polysubstance abuse including recent heroin abuse. RECOMMENDATIONS: At this point, this provider will continue with Prozac 20 mg daily, Neurontin 600 mg t.i.d., as the patient reports benefit with this medication. The Seroquel will be changed to just 100 mg at bedtime to help with mood and impulse control and to help with sleep. I have discontinued the higher doses of 150 mg in the morning and 300 mg at bedtime. The patient should also be given Ativan for his alcohol withdrawals while he is being treated on the medical floor and this should be tapered as tolerated. The patient does not meet criteria for inpatient hospitalization on the psychiatric unit at this time and he does not meet criteria for involuntary commitment. The patient should be given referrals to [facility] dual diagnosis program once he is medically cleared and provided a prescription for Prozac, Seroquel, and Neurontin in one week intervals. Psychiatry will sign off at this time. Please reconsult p.r.n. Elisabeth Mi MD
[2019-03-04] MEDS: Pantoprazole 40 mg EC Tab PO SCH (09:46)
[2019-03-04] MEDS: Multivitamin With Minerals Tab PO SCH (09:47)
--- NOTE | 2019-03-04 16:03 | CP.PCM.PN ---
<Levi Tinajero - Last Filed: 03/04/19 15:56> Subjective - Date & Time of Evaluation Date of Evaluation: 03/04/19 Time of Evaluation: 10:00 - Subjective Subjective: INTERNAL MEDICINE PROGRESS NOTE FOR DR. VANESSA Tinaejro PGY1 Pt seen and examined at bedside overnight. Pt was seen resting comfortably. He does not have tremors and his CIWA is 0 upon interview. He denies ROS Objective - Vital Signs/Intake and Output Vital Signs (last 24 hours): Temp Pulse Resp BP Pulse Ox 97.5 F L 74 18 116/71 95 03/04/19 06:00 03/04/19 10:00 03/04/19 06:00 03/04/19 06:00 03/04/19 06:00 Intake and Output: 03/04/19 03/04/19 06:59 18:59 Intake Total 240 Balance 240 - Medications Medications: Current Medications Folic Acid (Folic Acid) 1 mg PO DAILY [facility] Last Admin: 03/04/19 09:42 Dose: 1 mg Lorazepam (Ativan) 1 mg IVP Q8H PRN; Protocol PRN Reason: Symptoms of alcohol withdrawl Last Admin: 03/04/19 15:38 Dose: 1 mg Multivitamins/Minerals (Therapeutic-M Tab) 1 tab PO DAILY [facility] Last Admin: 03/04/19 09:47 Dose: 1 tab Nicotine (Nicoderm Cq) 1 patch TD DAILY [facility] Last Admin: 03/04/19 09:46 Dose: 1 patch Ondansetron HCl (Zofran Inj) 4 mg IVP Q6H PRN PRN Reason: Nausea/Vomiting Last Admin: 03/04/19 13:36 Dose: 4 mg Pantoprazole Sodium (Protonix Ec Tab) 40 mg PO DAILY [facility] Last Admin: 03/04/19 09:46 Dose: 40 mg Quetiapine Fumarate (Seroquel) 100 mg PO HS [facility]; Protocol Last Admin: 03/03/19 21:21 Dose: 100 mg Thiamine HCl (Vitamin B1 Tab) 100 mg PO DAILY [facility] Last Admin: 03/04/19 09:47 Dose: 100 mg - Labs Labs: 03/04/19 06:00 03/04/19 06:00 - Constitutional Appears: Well, Non-toxic, No Acute Distress - Head Exam Head Exam: NORMAL INSPECTION, NORMOCEPHALIC - Eye Exam Eye Exam: EOMI, Normal appearance Pupil Exam: NORMAL ACCOMODATION - ENT Exam ENT Exam: Mucous Membranes Moist - Neck Exam Neck exam: Positive for: Normal Inspection. Negative for: Tenderness - Respiratory Exam Respiratory Exam: Clear to Auscultation Bilateral, NORMAL BREATHING PATTERN. absent: Rales, Rhonchi, Wheezes, Respiratory Distress - Cardiovascular Exam Cardiovascular Exam: REGULAR RHYTHM, +S1, +S2. absent: Gallop, Rubs, Systolic Murmur - GI/Abdominal Exam GI & Abdominal Exam: Normal Bowel Sounds, Soft, Tenderness (Diffuse tenderness on palpation). absent: Distended, Firm, Guarding - Extremities Exam Extremities exam: Positive for: normal inspection. Negative for: calf tenderness, pedal edema - Back Exam Back exam: absent: CVA tenderness (L), CVA tenderness (R), paraspinal tenderness, vertebral tenderness - Neurological Exam Neurological exam: Alert, CN II-XII Intact, Oriented x3 - Psychiatric Exam Psychiatric exam: Anxious - Skin Skin Exam: Dry, Intact, Normal Color, Warm Assessment and Plan - Assessment and Plan (Free Text) Assessment: 28 year old male with past medical history of polysubstance abuse, alcohol abuse, alcohol withdrawal, bipolar disorder, depression, anxiety, and seizures, presenting with alcohol withdrawal symptoms. Plan: Alcohol withdrawal symptoms - Admission Serum alcohol level: 240. UDS: positive for benzodiazepines. Head CT: no acute findings - Ativan 1mg IVP Q8 PRN - Continue oral MV, Folate, Thiamine - CIWA protocol - Seizure precautions - ETOH cessation a Atypical chest pain - EKG: NSR at [address]-segment elevations or depressions, no T-wave inversions, normal intervals. CXR: Hypoinflation, no acute findings - Troponin: <0.01 X3 - Trend troponins - Toradol PRN for pain Transaminitis - Lkely 2/2 alcohol abuse - Avoid hepatotoxic agents - Continue to monitor Elevated creatine kinase - Downtrending History of anxiety, depression - Psychiatry consulted, Dr. Mi - continue seroquel HS - med rec per psych recommendations GI/DVT PPx: SCD/Protonix Case reviewed with attending physician, Dr. Vanessa Tinajero PGY1 <Marlin Valverde R - Last Filed: 03/05/19 08:00> Objective - Vital Signs/Intake and Output Vital Signs (last 24 hours): Temp Pulse Resp BP Pulse Ox 98.1 F 90 20 136/89 97 03/04/19 17:13 03/04/19 17:13 03/04/19 17:13 03/04/19 17:13 03/04/19 17:13 Intake and Output: 03/05/19 03/05/19 06:59 18:59 Intake Total 360 Balance 360 - Medications Medications: Current Medications Folic Acid (Folic Acid) 1 mg PO DAILY [facility] Last Admin: 03/04/19 09:42 Dose: 1 mg Multivitamins/Minerals (Therapeutic-M Tab) 1 tab PO DAILY [facility] Last Admin: 03/04/19 09:47 Dose: 1 tab Nicotine (Nicoderm Cq) 1 patch TD DAILY [facility] Last Admin: 03/04/19 09:46 Dose: 1 patch Ondansetron HCl (Zofran Inj) 4 mg IVP Q6H PRN PRN Reason: Nausea/Vomiting Last Admin: 03/05/19 05:58 Dose: 4 mg Pantoprazole Sodium (Protonix Ec Tab) 40 mg PO DAILY [facility] Last Admin: 03/04/19 09:46 Dose: 40 mg Quetiapine Fumarate (Seroquel) 100 mg PO HS [facility]; Protocol Last Admin: 03/04/19 21:36 Dose: 100 mg Thiamine HCl (Vitamin B1 Tab) 100 mg PO DAILY [facility] Last Admin: 03/04/19 09:47 Dose: 100 mg - Labs Labs: 03/05/19 06:30 03/05/19 06:30 Attending/Attestation - Attestation I have personally seen and examined this patient.: Yes I have fully participated in the care of the patient.: Yes I have reviewed all pertinent clinical information, including history, physical exam and plan: Yes Notes (Text): Patient seen and examined by me with resident at 10:40 AM on 03/04/19. Case including HPI, physical exam, and assessment and plan discussed with resident. Agree with above with following additions/corrections. 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 Patient states he is feeling ok. Sleeping comfortably when walked in. Patient with no tremors. States he feels anxious and has a headache. Patient states he is alway anxious. No abdominal pain. No nausea or vomiting. No chest pain or palpitations. No shortness of breath. No lightheadedness or dizziness. No fevers or chills. No dysuria. Patient is tolerating diet. Physical exam: General: Awake and alert, lying in bed in no acute distress. HEENT: Normocephalic, atraumatic, Extraocular muscles intact, pupils equal and reactive, no scleral icterus. Oropharynx is pink and moist. Neck is supple. Cardiovascular: Normal rhythm. Normal S1 and S2. No murmurs, rubs, or gallops appreciated. Pulmonary: Normal respiratory effort. No rhonchi, rales, or wheezing appreciated. Gastrointestinal: Soft. Nontender. Nondistended. Positive bowel sounds all 4 quadrants. No guarding. Musculoskeletal: Moves all extremities. No calf tenderness. No edema appreciated. Central nervous system: AAO x 3, CN 2-12 grossly intact. Dermatologic: Skin warm and dry. Assessment and plan: Patient is a 28-year-old male with past medical history significant for polysubstance abuse, alcohol abuse and withdrawal, seizures secondary to alochol abuse, bipolar disorder, depression, and anxiety that presented to the emergency room with alcohol withdrawal symptoms. 1. Alcohol abuse and withdrawal. Continue CIWA. Patient continuously asking for ativan. Placed on ativan prn CIWA > 9. Continue thiamine, folic acid, and multivitamin. Counseled at length on alcohol cessation. 2. Transaminitis. Downtrending. Secondary to alcohol abuse. Continue to monitor. 3. Polysubstance abuse. Patient counseled at length on cessation. UDS positive for benzodiazepine. 4. Tobacco abuse. Counseled on cessation. Continue Nicoderm 5. Bipolar disorder. Depression and anxiety. Patient seen by psychiatrist. Continue Seroquel Case was discussed in detail with the patient regarding current diagnosis and treatment plan. All questions answered.
[2019-03-05 07:29] LABS: BASO # 0.05 K/mm3 (0.0-2.0); EOS # 0.2 (0.0-0.7); EOS % 4.4 % (1.5-5.0); HEMOGLOBIN 10.8 g/dL (14.0-18.0); LYMPH # 2.3 (1.2-3.4); MEAN CORPUSCULAR HEMOGLOBIN 27.1 pg (25.0-35.0); MEAN CORPUSCULAR HGB CONC 30.8 g/dl (31.0-37.0); MEAN PLATELET VOLUME 10.1 fl (7.0-11.0); MONO # 0.3 (0.1-0.6); MONO % 6.3 % (1.0-6.0); RBC 3.99 10^6/uL (3.5-6.1); RED CELL DISTRIBUTION WIDTH 17.1 % (11.5-14.5); WHITE BLOOD COUNT 5.3 10^3/uL (4.5-11.0)
[2019-03-05 07:41] LABS: ALB/GLOB RATIO 1.3 (1.1-1.8); ALBUMIN 3.8 g/dL (3.0-4.8); ALT/SGPT 64 U/L (7-56); AST/SGOT 52 U/L (17-59); BLOOD UREA NITROGEN 13 mg/dL (7-21); CALCIUM 9.1 mg/dL (8.4-10.5); GFR NON-AFRICAN AMERICAN > 60
[2019-03-05 08:13] VITALS: BP 123/84; PULSE 62; RESP 18; TEMP 97.6; O2SAT 95
[2019-03-05] MEDS: Pantoprazole 40 mg EC Tab PO SCH (09:24)
[2019-03-05] MEDS: Multivitamin With Minerals Tab PO SCH (09:24)
--- NOTE | 2019-03-05 15:19 | CP.PCM.DIS ---
<Oleg Peralta - Last Filed: 03/05/19 15:03> Provider - Provider Date of Admission: 03/04/19 17:45 Attending physician: Marlin Valverde DO Primary care physician: NEGRA Granda Consults: 03/03/19 02:55 Physician Consult Routine Comment: Consulting Provider: Elisabeth Mi Consulting Physician: Elisabeth Mi Reason for Consult: anxiety, depression Time Spent in preparation of Discharge (in minutes): 60 Hospital Course - Lab Results Lab Results: Most Recent Lab Values WBC 5.3 10^3/uL (4.5-11.0) 03/05/19 06:30 RBC 3.99 10^6/uL (3.5-6.1) 03/05/19 06:30 Hgb 10.8 g/dL (14.0-18.0) L 03/05/19 06:30 Hct 35.1 % (42.0-52.0) L 03/05/19 06:30 MCV 88.0 fl (80.0-105.0) 03/05/19 06:30 MCH 27.1 pg (25.0-35.0) 03/05/19 06:30 MCHC 30.8 g/dl (31.0-37.0) L 03/05/19 06:30 RDW 17.1 % (11.5-14.5) H 03/05/19 06:30 Plt Count 219 10^3/uL (120.0-450.0) 03/05/19 06:30 MPV 10.1 fl (7.0-11.0) 03/05/19 06:30 Neut % (Auto) 45.3 % (50.0-68.0) L 03/05/19 06:30 Lymph % (Auto) 43.0 % (22.0-35.0) H 03/05/19 06:30 [place] % (Auto) 6.3 % (1.0-6.0) H 03/05/19 06:30 Eos % (Auto) 4.4 % (1.5-5.0) 03/05/19 06:30 Baso % (Auto) 1.0 % (0.0-3.0) 03/05/19 06:30 Lymph # (Auto) 2.3 (1.2-3.4) 03/05/19 06:30 [place] # (Auto) 0.3 (0.1-0.6) 03/05/19 06:30 Eos # (Auto) 0.2 (0.0-0.7) 03/05/19 06:30 Baso # (Auto) 0.05 K/mm3 (0.0-2.0) 03/05/19 06:30 Absolute Neuts (auto) 2.39 (1.4-6.5) 03/05/19 06:30 Sodium 141 mmol/L (132-148) 03/05/19 06:30 Potassium 3.6 mmol/L (3.6-5.0) 03/05/19 06:30 Chloride 110 mmol/L (98-107) H 03/05/19 06:30 Carbon Dioxide 22 mmol/L (21-33) 03/05/19 06:30 Anion Gap 12 (10-20) 03/05/19 06:30 BUN 13 mg/dL (7-21) 03/05/19 06:30 Creatinine 0.9 mg/dl (0.8-1.5) 03/05/19 06:30 Est GFR ( Amer) > 60 03/05/19 06:30 Est GFR (Non-Af Amer) > 60 03/05/19 06:30 Random Glucose 114 mg/dL (70-110) H 03/05/19 06:30 Calcium 9.1 mg/dL (8.4-10.5) 03/05/19 06:30 Magnesium 1.9 mg/dL (1.7-2.2) 03/04/19 07:00 Total Bilirubin 0.3 mg/dL (0.2-1.3) 03/05/19 06:30 AST 52 U/L (17-59) 03/05/19 06:30 ALT 64 U/L (7-56) H 03/05/19 06:30 Alkaline Phosphatase 86 U/L (38-126) 03/05/19 06:30 Total Creatine Kinase 415 U/L (35-230) H 03/03/19 06:20 CK-MB (CK-2) 1.1 ng/mL (0.0-3.6) 03/03/19 06:20 CK-MB (CK-2) % Cancelled 03/02/19 23:28 Troponin I < 0.01 ng/mL 03/03/19 06:20 Total Protein 6.6 g/dL (5.8-8.3) 03/05/19 06:30 Albumin 3.8 g/dL (3.0-4.8) 03/05/19 06:30 Globulin 2.8 gm/dL 03/05/19 06:30 Albumin/Globulin Ratio 1.3 (1.1-1.8) 03/05/19 06:30 Urine Color Yellow (YELLOW) 03/02/19 23:58 Urine Appearance Clear (CLEAR) 03/02/19 23:58 Urine pH 7.5 (4.7-8.0) 03/02/19 23:58 Ur Specific [place] 1.015 (1.005-1.035) 03/02/19 23:58 Urine Protein Negative mg/dL (<30 mg/dL) 03/02/19 23:58 Urine Glucose (UA) Negative mg/dL (NEGATIVE) 03/02/19 23:58 Urine Ketones Negative mg/dL (NEGATIVE) 03/02/19 23:58 Urine Blood Negative (NEGATIVE) 03/02/19 23:58 Urine Nitrate Negative (NEGATIVE) 03/02/19 23:58 Urine Bilirubin Negative (NEGATIVE) 03/02/19 23:58 Urine Urobilinogen 0.2 E.U./dL (<1 E.U./dL) 03/02/19 23:58 Ur Leukocyte Esterase Negative Kiersten/uL (NEGATIVE) 03/02/19 23:58 Salicylates < 1 mg/dL (2.0-20.0) L 03/02/19 23:28 Urine Opiates Screen Negative (NEGATIVE) 03/02/19 23:58 Urine Methadone Screen Negative (NEGATIVE) 03/02/19 23:58 Acetaminophen < 10.0 ug/ml (10.0-20.0) L 03/02/19 23:28 Ur Barbiturates Screen Negative (NEGATIVE) 03/02/19 23:58 Ur Phencyclidine Scrn Negative (NEGATIVE) 03/02/19 23:58 Ur Amphetamines Screen Negative (NEGATIVE) 03/02/19 23:58 U Benzodiazepines Scrn Positive (NEGATIVE) H 03/02/19 23:58 U Oth Cocaine Metabols Negative (NEGATIVE) 03/02/19 23:58 U Cannabinoids Screen Negative (NEGATIVE) 03/02/19 23:58 Alcohol, Quantitative 240 mg/dL (0-10) H 03/02/19 23:28 - Hospital Course Hospital Course: Zesilviaalen Peralta, PGY-1, Internal medicine Discharge Summary for Dr. Valverde 28 year old male with past medical history of polysubstance abuse, alcohol abuse, alcohol withdrawal, bipolar disorder, depression, anxiety, and seizures, presented with alcohol withdrawal symptoms. Upon admission, patient had earlier been in the emergency department for IV fluids and discharge. Patient had used 2 pints of vodka and heroin that morning. He also complained of achy reproducible chest pain. He had nausea, vomiting, and diffuse abdominal pain starting the day of admission and had vomited several times that day. Patient was admitted for alcohol abuse/withdrawal. Serum alcohol level was 240 on admission. UDS was positive for benzodiazepines. Head CT showed no acute findings. Patient was initially started on banana bag, MVI, folate, thiamine. CIWA protocol was initiated. CIWA score was as high as 6 on 03/04, which reduced to 0-1 on 03/05. This morning, CIWA was performed at bedside and found to be 3. Patient was given 25 mg librium in the emergency department. Upon admission to medical floor, patient was initially started on ativan 1 mg Q6PRN. This was increased to 2 mg Q4PRN and 1 mg Q6 on 03/03. This was deescalated to ativan 1 mg Q12 and 1 mg Q8PRN on 03/04. PRN ativan was only given once this morning and once on 03/04. Patient also had a mild transaminitis likely 2/2 to alcohol and substance abuse. Patient had a mildly elevated CK and was started on IV NS. IV NS was subseque ntly discontinued. Patient's EKG showed NSR and troponinx3 was negative on admission. Patient was found to be stable and ready for discharge. Patient was told to follow up with PCP, Dr. Batres, within 3-5 days of discharge. Patient was told to follow up with psychiatrist within 1 week of discharge from hospital. Patient was told to resume medications he was taking at the hospital. Patient was told to stop drinking alcohol. Patient was told to attend local alcoholics anonymous meetings. Patient was told to return to the hospital if he had any new or concerning symptoms. This is a brief summary of the events that transpired at the hospital. For more information, please refer to the hospital documentation. Discharge summary Alcohol abuse Benzodiazepine abuse Atypical Chest pain Transaminitis Elevated Creatinine Kinase Anxiety Depression - Date & Time of H&P Date of H&P: 03/03/19 Time of H&P: 02:16 Discharge Exam - Head Exam Head Exam: NORMAL INSPECTION, NORMOCEPHALIC - Eye Exam Eye Exam: EOMI, Normal appearance - Neck Exam Neck exam: Full Rom - Respiratory Exam Respiratory Exam: Clear to PA & Lateral, NORMAL BREATHING PATTERN - Cardiovascular Exam Cardiovascular Exam: REGULAR RHYTHM, RRR, +S1, +S2 - GI/Abdominal Exam GI & Abdominal Exam: Normal Bowel Sounds, Soft. absent: Distended, Firm, Guarding, Tenderness - Extremities Exam Extremities exam: full ROM, normal capillary refill, normal inspection - Neurological Exam Neurological exam: Alert, CN II-XII Intact, Oriented x3 Additional comments: minor tremor - Skin Skin Exam: Dry, Intact, Normal Color Discharge Plan - Follow Up Plan Condition: GOOD Disposition: HOME/ ROUTINE Instructions: Alcohol Abuse and Alcoholism (DC), Effects of Alcohol on Your Health, Polysubstance Abuse Additional Instructions: Please follow up with your primary care physician, Dr. Batres within 3-5 days of discharge from the hospital Please follow up with your psychiatrist within 1 week of discharge from the hospital Please resume the medications that you were taking previously Please discuss your medications and request refills with your primary care doctor if needed Please stop drinking alcohol Please attend local alcoholics anonymous meetings. Please discuss these options with your primary care doctor and psychiatrist. If your symptoms return, or you experience new symptoms, please visit the nearest emergency room Referrals: Tess Pierce FNP-BC [Primary Care Provider] - <Marlin Valverde - Last Filed: 03/05/19 18:56> Provider - Provider Date of Admission: 03/04/19 17:45 Attending physician: Marlin Valverde DO Primary care physician: TEX Granda Consults: 03/03/19 02:55 Physician Consult Routine Comment: Consulting Provider: Elisabeth Mi Consulting Physician: Elisabeth Mi Reason for Consult: anxiety, depression Hospital Course - Lab Results Lab Results: Most Recent Lab Values WBC 5.3 10^3/uL (4.5-11.0) 03/05/19 06:30 RBC 3.99 10^6/uL (3.5-6.1) 03/05/19 06:30 Hgb 10.8 g/dL (14.0-18.0) L 03/05/19 06:30 Hct 35.1 % (42.0-52.0) L 03/05/19 06:30 MCV 88.0 fl (80.0-105.0) 03/05/19 06:30 MCH 27.1 pg (25.0-35.0) 03/05/19 06:30 MCHC 30.8 g/dl (31.0-37.0) L 03/05/19 06:30 RDW 17.1 % (11.5-14.5) H 03/05/19 06:30 Plt Count 219 10^3/uL (120.0-450.0) 03/05/19 06:30 MPV 10.1 fl (7.0-11.0) 03/05/19 06:30 Neut % (Auto) 45.3 % (50.0-68.0) L 03/05/19 06:30 Lymph % (Auto) 43.0 % (22.0-35.0) H 03/05/19 06:30 [place] % (Auto) 6.3 % (1.0-6.0) H 03/05/19 06:30 Eos % (Auto) 4.4 % (1.5-5.0) 03/05/19 06:30 Baso % (Auto) 1.0 % (0.0-3.0) 03/05/19 06:30 Lymph # (Auto) 2.3 (1.2-3.4) 03/05/19 06:30 [place] # (Auto) 0.3 (0.1-0.6) 03/05/19 06:30 Eos # (Auto) 0.2 (0.0-0.7) 03/05/19 06:30 Baso # (Auto) 0.05 K/mm3 (0.0-2.0) 03/05/19 06:30 Absolute Neuts (auto) 2.39 (1.4-6.5) 03/05/19 06:30 Sodium 141 mmol/L (132-148) 03/05/19 06:30 Potassium 3.6 mmol/L (3.6-5.0) 03/05/19 06:30 Chloride 110 mmol/L (98-107) H 03/05/19 06:30 Carbon Dioxide 22 mmol/L (21-33) 03/05/19 06:30 Anion Gap 12 (10-20) 03/05/19 06:30 BUN 13 mg/dL (7-21) 03/05/19 06:30 Creatinine 0.9 mg/dl (0.8-1.5) 03/05/19 06:30 Est GFR ( Amer) > 60 03/05/19 06:30 Est GFR (Non-Af Amer) > 60 03/05/19 06:30 Random Glucose 114 mg/dL (70-110) H 03/05/19 06:30 Calcium 9.1 mg/dL (8.4-10.5) 03/05/19 06:30 Magnesium 1.9 mg/dL (1.7-2.2) 03/04/19 07:00 Total Bilirubin 0.3 mg/dL (0.2-1.3) 03/05/19 06:30 AST 52 U/L (17-59) 03/05/19 06:30 ALT 64 U/L (7-56) H 03/05/19 06:30 Alkaline Phosphatase 86 U/L (38-126) 03/05/19 06:30 Total Creatine Kinase 415 U/L (35-230) H 03/03/19 06:20 CK-MB (CK-2) 1.1 ng/mL (0.0-3.6) 03/03/19 06:20 CK-MB (CK-2) % Cancelled 03/02/19 23:28 Troponin I < 0.01 ng/mL 03/03/19 06:20 Total Protein 6.6 g/dL (5.8-8.3) 03/05/19 06:30 Albumin 3.8 g/dL (3.0-4.8) 03/05/19 06:30 Globulin 2.8 gm/dL 03/05/19 06:30 Albumin/Globulin Ratio 1.3 (1.1-1.8) 03/05/19 06:30 Urine Color Yellow (YELLOW) 03/02/19 23:58 Urine Appearance Clear (CLEAR) 03/02/19 23:58 Urine pH 7.5 (4.7-8.0) 03/02/19 23:58 Ur Specific [place] 1.015 (1.005-1.035) 03/02/19 23:58 Urine Protein Negative mg/dL (<30 mg/dL) 03/02/19 23:58 Urine Glucose (UA) Negative mg/dL (NEGATIVE) 03/02/19 23:58 Urine Ketones Negative mg/dL (NEGATIVE) 03/02/19 23:58 Urine Blood Negative (NEGATIVE) 03/02/19 23:58 Urine Nitrate Negative (NEGATIVE) 03/02/19 23:58 Urine Bilirubin Negative (NEGATIVE) 03/02/19 23:58 Urine Urobilinogen 0.2 E.U./dL (<1 E.U./dL) 03/02/19 23:58 Ur Leukocyte Esterase Negative Kiersten/uL (NEGATIVE) 03/02/19 23:58 Salicylates < 1 mg/dL (2.0-20.0) L 03/02/19 23:28 Urine Opiates Screen Negative (NEGATIVE) 03/02/19 23:58 Urine Methadone Screen Negative (NEGATIVE) 03/02/19 23:58 Acetaminophen < 10.0 ug/ml (10.0-20.0) L 03/02/19 23:28 Ur Barbiturates Screen Negative (NEGATIVE) 03/02/19 23:58 Ur Phencyclidine Scrn Negative (NEGATIVE) 03/02/19 23:58 Ur Amphetamines Screen Negative (NEGATIVE) 03/02/19 23:58 U Benzodiazepines Scrn Positive (NEGATIVE) H 03/02/19 23:58 U Oth Cocaine Metabols Negative (NEGATIVE) 03/02/19 23:58 U Cannabinoids Screen Negative (NEGATIVE) 03/02/19 23:58 Alcohol, Quantitative 240 mg/dL (0-10) H 03/02/19 23:28 Attending/Attestation - Attestation I have personally seen and examined this patient.: Yes I have fully participated in the care of the patient.: Yes I have reviewed all pertinent clinical information, including history, physical exam and plan: Yes Notes (Text): Please note this DC summary is for 03/05/19 Patient seen and examined by me with resident at approximately 9:30AM on 03/05/19. Case including discharge plan discussed with resident. Agree with above with following additions/corrections. Patient is a 28-year-old male with past medical history significant for polysubstance abuse, alcohol abuse and withdrawal, seizures secondary to alcohol abuse, bipolar disorder, depression, and anxiety that presented to the emergency room with alcohol withdrawal symptoms. Please see H&P for full details. Patient was found to have alcohol abuse and withdrawal, transaminitis, history of polysubstance abuse, tobacco abuse, bipolar disorder, depression, and anxiety. Patient was placed on CIWA protocol. Patient was treated with banana bag. Patient was also treated with Ativan. Patient was continued on thiamine, folic acid, and multivitamin. Patient was counseled at length on alcohol cessation. Patient was also found to have elevated LFTs which were downtrending on discharge. Transaminitis secondary to alcohol abuse. She was counseled at length on polysubstance abuse. UDS was positive for benzodiazepines. Patient was counseled on tobacco abuse and was continued on NicoDerm patch. Patient was seen by psychiatrist for history of bipolar disorder, anxiety, and depression. Patient was continued on Seroquel. Patient was feeling much better. He was scoring low on CIWA protocol. Patient was discharged home. On day of discharge, patient stated he was feeling better. No abdominal pain. No nausea or vomiting. Patient was tolerating diet well. Patient with minimal forced tremors in hands. Patient had a headache with improvement with tylenol. No dizziness or lightheadedness. No chest pain or palpitations. No shortness of breath. No fevers or chills. No dysuria or burning with urination. Physical exam: General: Awake and alert, lying in bed in no acute distress. HEENT: Normocephalic, atraumatic, Extraocular muscles intact, pupils equal and reactive, no scleral icterus. Oropharynx is pink and moist. Neck is supple. Cardiovascular: Normal rhythm. Normal S1 and S2. No murmurs, rubs, or gallops appreciated. Pulmonary: Normal respiratory effort. No rhonchi, rales, or wheezing appreciated. Gastrointestinal: Soft. Nontender. Nondistended. Positive bowel sounds all 4 quadrants. No guarding. Musculoskeletal: Moves all extremities. No calf tenderness. No edema appreciated. Central nervous system: AAO x 3, CN 2-12 grossly intact. Dermatologic: Skin warm and dry. Please see chart for full details. Follow up instructions: Patient to follow up with primary care doctor within 3-5 days. Patient to follow up with his psychiatrist within 1 week. Continue home medications and stop drinking alcohol. All instructions explained to the patient in detail. Patient both understands and agrees to all instructions. Written instructions also given. Time spent in discharging the patient including chart review, medication reconciliation, discussion with the patient, medical customer service representative, consultants, and nursing staff was approximately 35 minutes.
== END 2019-03-05 12:52 | disposition home or self-care (01) | DRG 745 ==
LOC: ED 21:33 → ERH 03-03 01:10 → 3RNO 03-03 02:48 → OBSVTOIN 03-04 17:45
PROVIDERS: ADMIT Internal Medicine; ATTEND Hospitalist
DX: F10.239 Alcohol dependence with withdrawal, unspecified (principal); F10.24 Alcohol dependence with alcohol-induced mood disorder; F41.1 Generalized anxiety disorder; E78.5 Hyperlipidemia, unspecified; F17.210 Nicotine dependence, cigarettes, uncomplicated; F13.10 Sedative, hypnotic or anxiolytic abuse, uncomplicated; F11.23 Opioid dependence with withdrawal; F31.9 Bipolar disorder, unspecified; F90.9 Attention-deficit hyperactivity disorder, unspecified type; Y90.8 Blood alcohol level of 240 mg/100 ml or more; Z83.3 Family history of diabetes mellitus; Z81.1 Family history of alcohol abuse and dependence; Z87.11 Personal history of peptic ulcer disease; Z90.49 Acquired absence of other specified parts of digestive tract; Z91.5 Personal history of self-harm; R07.89 Other chest pain; R74.0 Nonspecific elevation of levels of transaminase and lactic acid dehydrogenase [LDH]

== ENCOUNTER 2019-03-09 02:19 | Inpatient (IN) | payer MEDICAID ==
[2019-03-09 02:21] VITALS: BMI 30.8
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
[2019-03-09 03:16] LABS: ARTERIAL BLOOD GAS HCO3 20.7 mmol/L (21-28); ARTERIAL BLOOD GAS HEMOGLOBIN 11.3 g/dL (11.7-17.4); ARTERIAL BLOOD GAS O2 CAPACITY 15.7 mL/dl (16-24); ARTERIAL BLOOD GAS O2 CONTENT 14.9 ML/dl (15-23); ARTERIAL BLOOD GAS O2 SAT 95.2 % (95-98); ARTERIAL BLOOD GAS PCO2 35 mm/Hg (35-45); ARTERIAL BLOOD GAS PH 7.38 (7.35-7.45); ARTERIAL BLOOD GAS TCO2 21.8 mmol.L (22-28)
[2019-03-09 03:22] LABS: BASO # 0.08 K/mm3 (0.0-2.0); EOS # 0.1 (0.0-0.7); EOS % 1.4 % (1.5-5.0); HEMOGLOBIN 12.3 g/dL (14.0-18.0); LYMPH # 3.2 (1.2-3.4); MEAN CELL VOLUME 85.8 fl (80.0-105.0); MEAN CORPUSCULAR HEMOGLOBIN 27.7 pg (25.0-35.0); MEAN CORPUSCULAR HGB CONC 32.3 g/dl (31.0-37.0); MEAN PLATELET VOLUME 10.7 fl (7.0-11.0); MONO # 0.6 (0.1-0.6); MONO % 7.3 % (1.0-6.0); RBC 4.44 10^6/uL (3.5-6.1); RED CELL DISTRIBUTION WIDTH 18.2 % (11.5-14.5)
[2019-03-09 03:24] LABS: ACETAMINOPHEN < 10.0 ug/ml (10.0-20.0); SALICYLATE < 1 mg/dL (2.0-20.0)
[2019-03-09 03:26] LABS: WHITE BLOOD COUNT 8.1 10^3/uL (4.5-11.0)
[2019-03-09 03:47] LABS: ALB/GLOB RATIO 1.4 (1.1-1.8); ALBUMIN 4.4 g/dL (3.0-4.8); ALT/SGPT 106 U/L (7-56); AST/SGOT 111 U/L (17-59); BLOOD UREA NITROGEN 12 mg/dL (7-21); CALCIUM 9.1 mg/dL (8.4-10.5); GFR NON-AFRICAN AMERICAN > 60
[2019-03-09] MEDS ORDERED: Multivitamin (MVI) 10 ML, Thiamine 100 MG, Folic Acid 1 MG in Sodium Chloride 0.9% 1,00... IV ONE (04:06)
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
[2019-03-09 06:41] LABS: BARBITURATES, UR NEGATIVE (NEGATIVE); BENZODIAZEPINES, UR POSITIVE (NEGATIVE); OPIATES, UR NEGATIVE (NEGATIVE); PHENCYCLIDINE, UR NEGATIVE (NEGATIVE)
[2019-03-09] MEDS: Multivitamin With Minerals Tab PO SCH (10:14)
--- NOTE | 2019-03-09 10:18 | RAD ---
Date of service: 03/09/2019 HISTORY: overdose COMPARISON: 03/02/2019 TECHNIQUE: 1 view obtained. FINDINGS: LUNGS: No active pulmonary disease. PLEURA: No significant pleural effusion identified, no pneumothorax apparent. CARDIOVASCULAR: No aortic atherosclerotic calcification present. Normal cardiac size. No pulmonary vascular congestion. OSSEOUS STRUCTURES: No significant abnormalities. VISUALIZED UPPER ABDOMEN: Normal. OTHER FINDINGS: None. IMPRESSION: No active disease.
--- NOTE | 2019-03-09 10:46 | CARD ---
APPROVED REPORT Date of service: 03/09/2019 EKG Measurement Heart [id number] [place] [id number] <Conclusion> Normal sinus rhythm Normal Electrocardiogram
--- NOTE | 2019-03-09 10:48 | CARD ---
APPROVED REPORT Date of service: 03/09/2019 EKG Measurement Heart [id number] [place] [id number] <Conclusion> Normal sinus rhythm Incomplete right bundle branch block Otherwise normal ECG
[2019-03-09] MEDS: Multivitamin (MVI) 10 ML, Thiamine 100 MG, Folic Acid 1 MG in Sodium Chloride 0.9% 1,00... IV ONE ×2 (10:50→11:00)
--- NOTE | 2019-03-09 17:28 | CARD ---
APPROVED REPORT Date of service: 03/09/2019 EKG Measurement Heart [id number] [place] 154P38 [id number] <Conclusion> Normal sinus rhythm Incomplete right bundle branch block Borderline ECG
--- NOTE | 2019-03-09 21:19 | CARD ---
APPROVED REPORT Date of service: 03/09/2019 EKG Measurement Heart [id number] [place] 152P38 [id number] <Conclusion> Normal sinus rhythm Intraventricular conduction delay of RBBB type Nonspecific T wave abnormality Abnormal ECG
--- NOTE | 2019-03-09 21:34 | CARD ---
APPROVED REPORT Date of service: 03/09/2019 EKG Measurement Heart [id number] [place] 158P38 [id number] <Conclusion> Normal sinus rhythm Incomplete right bundle branch block Nonspecific T wave abnormality Abnormal ECG
[2019-03-10 07:15] LABS: BASO # 0.04 K/mm3 (0.0-2.0); BASO % 0.8 % (0.0-3.0); EOS # 0.1 (0.0-0.7); EOS % 2.5 % (1.5-5.0); HEMOGLOBIN 10.8 g/dL (14.0-18.0); LYMPH # 2.3 (1.2-3.4); LYMPH % 43.7 % (22.0-35.0); MEAN CELL VOLUME 86.9 fl (80.0-105.0); MEAN CORPUSCULAR HEMOGLOBIN 27.1 pg (25.0-35.0); MEAN CORPUSCULAR HGB CONC 31.2 g/dl (31.0-37.0); MEAN PLATELET VOLUME 10.8 fl (7.0-11.0); MONO # 0.4 (0.1-0.6); MONO % 7.8 % (1.0-6.0); RBC 3.98 10^6/uL (3.5-6.1); RED CELL DISTRIBUTION WIDTH 17.8 % (11.5-14.5); WHITE BLOOD COUNT 5.2 10^3/uL (4.5-11.0)
[2019-03-10 07:49] LABS: ALB/GLOB RATIO 1.3 (1.1-1.8); ALBUMIN 3.6 g/dL (3.0-4.8); ALT/SGPT 131 U/L (7-56); AST/SGOT 208 U/L (17-59); BLOOD UREA NITROGEN 15 mg/dL (7-21); CALCIUM 8.8 mg/dL (8.4-10.5); GFR NON-AFRICAN AMERICAN > 60
[2019-03-10] MEDS ORDERED: Magnesium Sulfate 2 GM in Sodium Chloride 0.9% 100 ML IV ONE (10:06)
[2019-03-10] MEDS ORDERED: Magnesium Sulfate 2 GM in 50 ml Water IVPB ONE (10:15)
[2019-03-10] MEDS ORDERED: Magnesium Oxide 400 mg Tab UD PO ONE (12:17)
--- NOTE | 2019-03-10 12:20 | CP.PCM.PN ---
<Oleg Peralta - Last Filed: 03/10/19 12:17> Subjective - Date & Time of Evaluation Date of Evaluation: 03/10/19 Time of Evaluation: 12:17 - Subjective Subjective: Oleg Peralta, PGY-1, Internal Medicine Progress Note for Dr. Xiong Patient seen and evaluated at bedside. Patient's last CIWA at 6:00 was 4. Patient reports headache, photophobia, phonophobia, and shortness of breath but denies any other symptoms at this time. Patient denies tremors as he just received ativan upon evaluation. Patient reported going to [facility] 3 weeks ago for 6 days. 12-point ROS was unremarkable except for what was mentioned above. Objective - Vital Signs/Intake and Output Vital Signs (last 24 hours): Temp Pulse Resp BP Pulse Ox 97.9 F 44 L 18 135/79 98 03/10/19 06:00 03/10/19 06:00 03/10/19 06:00 03/10/19 06:00 03/10/19 06:00 Intake and Output: 03/10/19 03/10/19 06:59 18:59 Intake Total 1960 Output Total 1000 Balance 960 - Medications Medications: Current Medications Folic Acid (Folic Acid) 1 mg PO DAILY [facility] Last Admin: 03/09/19 10:14 Dose: 1 mg Lorazepam (Ativan) 1 mg IVP Q6H PRN; Protocol PRN Reason: Symptoms of alcohol withdrawl Last Admin: 03/10/19 06:44 Dose: 1 mg Multivitamins/Minerals (Therapeutic-M Tab) 1 tab PO DAILY [facility] Last Admin: 03/09/19 10:14 Dose: 1 tab Nicotine (Nicoderm Cq) 1 patch TD DAILY [facility] Last Admin: 03/10/19 09:19 Dose: 1 patch Pantoprazole Sodium (Protonix Inj) 40 mg IVP DAILY [facility] Last Admin: 03/10/19 09:20 Dose: 40 mg Sodium Chloride (Terrell Nasal Luna) 1 ml NS Q4H PRN PRN Reason: Nasal congestion Thiamine HCl (Vitamin B1 Tab) 100 mg PO DAILY [facility] Last Admin: 03/09/19 10:14 Dose: 100 mg - Labs Labs: 03/10/19 06:45 03/10/19 06:45 - Constitutional Appears: Well, Non-toxic, No Acute Distress - Head Exam Head Exam: ATRAUMATIC, NORMAL INSPECTION, NORMOCEPHALIC - Eye Exam Eye Exam: EOMI, PERRL Pupil Exam: NORMAL ACCOMODATION - ENT Exam ENT Exam: Mucous Membranes Moist - Neck Exam Neck Exam: Full ROM, Normal Inspection - Respiratory Exam Respiratory Exam: Clear to Ausculation Bilateral, NORMAL BREATHING PATTERN. absent: Rales, Rhonchi, Wheezes - Cardiovascular Exam Cardiovascular Exam: Bradycardia, REGULAR RHYTHM, +S1, +S2. absent: Clicks, Gallop, Rubs - GI/Abdominal Exam GI & Abdominal Exam: Soft, Normal Bowel Sounds. absent: Distended, Firm, Guarding, Tenderness - Extremities Exam Extremities Exam: Full ROM, Normal Capillary Refill, Normal Inspection - Back Exam Back Exam: Full ROM. absent: CVA tenderness (L), CVA tenderness (R) - Neurological Exam Neurological Exam: Alert, Awake, CN II-XII Intact, Oriented x3 Additional comments: no tremors - Psychiatric Exam Psychiatric exam: Normal Affect, Normal Mood - Skin Skin Exam: Dry, Intact, Normal Color Assessment and Plan - Assessment and Plan (Free Text) Assessment: 28 year old male with recurrent admissions for alcohol and recreational drug abuse, alcohol abuse, bipolar disorder, depression, anxiety, and seizures presented status post overdosing on 9 tablets of seroquel, 4 tablets of ativan 1 mg, and 1 or more pints of alcohol. Plan: Status post overdose of alcohol, seroquel and ativan -[facility] protocol initiated -Continue on ativan 1 mg Q6PRN -Continue MVI, thiamine 100 mg, and folic acid -Started tylenol PRN for headache -Continue aspiration, fall, seizures precautions -Maintain HOB at 30 degrees to prevent aspiration. -Patient counseled regarding dangers of alcohol, seroquel, and ativan abuse Tobacco abuse -Continue with nicotine patch -Started duonebs 3 Q4PRN for shortness of breath -Counseled patient regarding dangers of tobacco use Bipolar disorder -Dr. Orellana, Psychiatry, consulted for further recommendations -Will hold off on seroquel for now as patient overdosed on seroquel prior to admission. GI prophylaxis: protonix 40 mg daily DVT prophylaxis: SCD Patient plan discussed with Dr. Xiong. <Alejandro Xiong - Last Filed: 03/11/19 13:22> Objective - Vital Signs/Intake and Output Vital Signs (last 24 hours): Temp Pulse Resp BP Pulse Ox 97.5 F L 69 18 128/79 94 L 03/11/19 06:00 03/11/19 06:00 03/11/19 06:00 03/11/19 06:00 03/11/19 06:00 Intake and Output: 03/11/19 03/11/19 06:59 18:59 Intake Total 620 Balance 620 - Labs Labs: 03/11/19 09:00 03/11/19 09:00 Attending/Attestation - Attestation I have personally seen and examined this patient.: Yes I have fully participated in the care of the patient.: Yes I have reviewed all pertinent clinical information, including history, physical exam and plan: Yes Notes (Text): 03/11/19 13:18 Attending note; Patient seen and examined with resident. Patient is more alert and awake. Complaining of mild anxiety Does not remember how he got to the hospital. Patient was drinking alcohol. Patient denied any suicidal or homicidal ideation. Currently tolerating diet. Patient is a 28-year-old male with past medical history significant for polysubstance abuse, alcohol abuse and withdrawal, bipolar disorder, depression, and anxiety that presented to the emergency room with alcohol withdrawal symptoms. 1. Alcohol abuse and Ativan and Seroquel abuse. Poison control informed. EKG showed no acute QT prolongation. Patient is clinically stable now. Patient denies suicidal ideation. Psychiatric evaluation appreciated . Continue IV Ativan as needed. patient continuously asking for ativan. Continue thiamine, folic acid, and multivitamin. Counseled at length on alcohol cessation. Patient just got released from alcohol rehab. Does not follow-up with the meetings. Psychiatrist gave information about outpatient programs. Patient was educated by administrator social welfare multiple times about outpatient rehab. 2. Transaminitis. Downtrending. Secondary to alcohol abuse. Continue to monitor. 3. Polysubstance abuse. Patient counseled at length on cessation. UDS positive for benzodiazepine. 4. Tobacco abuse. Counseled on cessation. Continue Nicoderm 5. Bipolar disorder. Depression and anxiety. Patient needs close follow-up with outpatient psychiatrist. Monitor closely. Prognosis is poor secondary to continuous alcohol and benzodiazepine abuse noncompliance with follow-up.
[2019-03-10] MEDS ORDERED: Albuterol-Ipratrop 3 mg / 0.5 (3 ml) UD IH PRN (12:30)
--- NOTE | 2019-03-11 02:38 | CON ---
DATE: 03/10/2019 CONSULTATION NOTE HISTORY OF PRESENT ILLNESS: The patient is a 28-year-old male with severe alcohol use disorder, multiple medical complications because of the addiction to alcohol/benzodiazepines. The patient also has history of questionable bipolar disorder and personality disorder. This handbook writer is very familiar with this patient from the multiple admissions to the psychiatric inpatient unit and consultation services. This time, the patient was admitted on the medical side for evaluation of possible overdose on Ativan as well as Seroquel and also the patient was intoxicated with a blood alcohol level of 352 at ED and and benzodiazepines were positive. psychiatric consult was called because pt has h/o mental illness and h/o psych admission as well as pt was on some psychotropic medications. The patient was seen and examined today. The patient presented to be alert, somewhat annoyed with this handbook writer. The patient does not have good report of this handbook writer because this handbook writer is refusing to prescribe any benzodiazepines or stimulants or diagnose the patient with attention deficit disorder, as well as refused to give any stimulant for benzodiazepines. Moreover this handbook writer strongly recommended inpatient rehab for his substance abuse as well as detoxes on multiple occasions. That is why the patient feels very strongly about this handbook writer, whose treatment/ discharge plans are deviated from the patient's self suggested ideal plans. The patient was seen and examined. The patient presented superficially cooperative. The patient reported that he was recently discharged from [facility] detox unit where he spent 6 days instead of 12 days due to insurance issues. The patient reported that he relapsed on alcohol on day 2 after discharge. The patient was drinking on a daily basis with his boyfriend. The patient also reported that he was taking Ativan and Seroquel occasionally. The patient reported that he does not have outpatient psychiatrist and Dr. Mi, outpatient [facility] in [place], refused to accept the patient and in fact, the patient will be graduated from dual diagnosis program at [facility]. The patient reported that he is planning to be compliant with that suggestion and the patient requested information about [facility] as well as local psychiatrist which list was provided to the patient. Going back to the patient's admission, the patient adamantly denied that he wanted to harm himself. At the time of admission, the patient reported that he never said that he wanted to kill himself, basically he wanted to feel better. The patient reported that at the present moment, he does not feel depressed. He denied any thoughts of killing himself. The patient denied hearing voices, denied seeing things, denied paranoid ideation, and based on the emergency room documentation, the patient denied that he wanted to kill himself back then and the patient's statement was "to make myself feel better." VITAL SIGNS: Vital signs were reviewed. Temperature 98, pulse is 63, blood pressure 136/99, oxygen saturation is 98. MEDICATIONS: Medications were reviewed. The patient is on Tylenol, DuoNeb, folic acid, Ativan as needed, multivitamins, Nicoderm, Protonix, sodium chloride, and vitamin B1. LABORATORY DATA: Labs were reviewed. Hematology reviewed. Blood gases reviewed. Chemistry reviewed. Toxicology reviewed. AST and ALT are elevated. Microbiology reviewed. MENTAL STATUS EXAM: The patient appears to be with good personal hygiene. Fair eye contact. Mood described as "okay". Affect was constricted. Thought process coherent and goal-directed. Thought content: The patient denies visual, auditory, or tactile hallucinations. Denied current paranoid ideation. The patient denied thoughts of harming himself or others, denied intent or plan. Insight and judgment seem to be limited to his addiction to benzodiazepines and alcohol and substances, impulses are well controlled. IMPRESSION: Alcohol use disorder, severe history of questionable bipolar disorder, rule out mood disorder due to substance-induced mood disorder. PLAN: Continue current management. Continue current medications. The patient was provided with information about local psychiatrists and programs. This handbook writer recommended for the patient to go to inpatient rehab, but the patient was not interested. The patient posed no imminent danger to self or others. Thank you very much for letting me participate in the care of your patient. Should you have any questions, give me a call back. Hollie Orellana MD [place]
[2019-03-11] MEDS ORDERED: Pantoprazole 40 mg EC Tab PO SCH (07:30)
[2019-03-11 08:36] VITALS: BP 128/79; PULSE 69; RESP 18; TEMP 97.5; O2SAT 94
[2019-03-11 09:26] LABS: BASO # 0.04 K/mm3 (0.0-2.0); BASO % 0.8 % (0.0-3.0); EOS # 0.2 (0.0-0.7); EOS % 3.5 % (1.5-5.0); HEMOGLOBIN 11.5 g/dL (14.0-18.0); LYMPH # 2.3 (1.2-3.4); LYMPH % 44.8 % (22.0-35.0); MEAN CELL VOLUME 87.2 fl (80.0-105.0); MEAN CORPUSCULAR HEMOGLOBIN 27.3 pg (25.0-35.0); MEAN CORPUSCULAR HGB CONC 31.3 g/dl (31.0-37.0); MEAN PLATELET VOLUME 10.8 fl (7.0-11.0); MONO # 0.5 (0.1-0.6); MONO % 8.7 % (1.0-6.0); RBC 4.21 10^6/uL (3.5-6.1); RED CELL DISTRIBUTION WIDTH 17.6 % (11.5-14.5); WHITE BLOOD COUNT 5.2 10^3/uL (4.5-11.0)
--- NOTE | 2019-03-11 09:33 | CP.PCM.DIS ---
<BlaynemigdaliaOleg - Last Filed: 03/11/19 12:04> Provider - Provider Date of Admission: 03/09/19 04:12 Attending physician: Alejandro Xiong MD Primary care physician: SANA Granda- Consults: 03/09/19 10:25 Psychiatry Consult Routine Comment: Consulting Provider: Hollie Orellana Consulting Physician: Hollie Orellana Reason for Consult: drug o/d, polysubstance, depression, anxiety Time Spent in preparation of Discharge (in minutes): 60 Hospital Course - Lab Results Lab Results: Most Recent Lab Values WBC 5.2 10^3/uL (4.5-11.0) 03/11/19 09:00 RBC 4.21 10^6/uL (3.5-6.1) 03/11/19 09:00 Hgb 11.5 g/dL (14.0-18.0) L 03/11/19 09:00 Hct 36.7 % (42.0-52.0) L 03/11/19 09:00 MCV 87.2 fl (80.0-105.0) 03/11/19 09:00 MCH 27.3 pg (25.0-35.0) 03/11/19 09:00 MCHC 31.3 g/dl (31.0-37.0) 03/11/19 09:00 RDW 17.6 % (11.5-14.5) H 03/11/19 09:00 Plt Count 174 10^3/uL (120.0-450.0) 03/11/19 09:00 MPV 10.8 fl (7.0-11.0) 03/11/19 09:00 Neut % (Auto) 42.2 % (50.0-68.0) L 03/11/19 09:00 Lymph % (Auto) 44.8 % (22.0-35.0) H 03/11/19 09:00 Rolette % (Auto) 8.7 % (1.0-6.0) H 03/11/19 09:00 Eos % (Auto) 3.5 % (1.5-5.0) 03/11/19 09:00 Baso % (Auto) 0.8 % (0.0-3.0) 03/11/19 09:00 Lymph # (Auto) 2.3 (1.2-3.4) 03/11/19 09:00 Rolette # (Auto) 0.5 (0.1-0.6) 03/11/19 09:00 Eos # (Auto) 0.2 (0.0-0.7) 03/11/19 09:00 Baso # (Auto) 0.04 K/mm3 (0.0-2.0) 03/11/19 09:00 Absolute Neuts (auto) 2.18 (1.4-6.5) 03/11/19 09:00 pCO2 35 mm/Hg (35-45) 03/09/19 03:10 pO2 93.0 mm/Hg (80-100) 03/09/19 03:10 HCO3 20.7 mmol/L (21-28) L 03/09/19 03:10 ABG pH 7.38 (7.35-7.45) 03/09/19 03:10 ABG Total CO2 21.8 mmol.L (22-28) L 03/09/19 03:10 ABG O2 Saturation 95.2 % (95-98) 03/09/19 03:10 ABG O2 Content 14.9 ML/dl (15-23) L 03/09/19 03:10 ABG Base Excess -3.9 mmol/L (-2.0-3.0) L 03/09/19 03:10 ABG Hemoglobin 11.3 g/dL (11.7-17.4) L 03/09/19 03:10 ABG Carboxyhemoglobin 2.1 % (0.5-1.5) H 03/09/19 03:10 POC ABG HHb (Measured) 4.7 % (0-5) 03/09/19 03:10 ABG Methemoglobin 0.0 % (0.0-3.0) 03/09/19 03:10 ABG O2 Capacity 15.7 mL/dl (16-24) L 03/09/19 03:10 Hgb O2 Saturation 93.3 % (95.0-98.0) L 03/09/19 03:10 FiO2 28.0 % 03/09/19 03:10 Sodium 138 mmol/L (132-148) 03/10/19 06:45 Potassium 4.0 mmol/L (3.6-5.0) 03/10/19 06:45 Chloride 109 mmol/L (98-107) H 03/10/19 06:45 Carbon Dioxide 22 mmol/L (21-33) 03/10/19 06:45 Anion Gap 11 (10-20) 03/10/19 06:45 BUN 15 mg/dL (7-21) 03/10/19 06:45 Creatinine 0.9 mg/dl (0.8-1.5) 03/10/19 06:45 Est GFR ( Amer) > 60 03/10/19 06:45 Est GFR (Non-Af Amer) > 60 03/10/19 06:45 Random Glucose 93 mg/dL (70-110) 03/10/19 06:45 Calcium 8.8 mg/dL (8.4-10.5) 03/10/19 06:45 Phosphorus 4.6 mg/dL (2.5-4.5) H 03/10/19 06:45 Magnesium 1.6 mg/dL (1.7-2.2) L 03/10/19 06:45 Total Bilirubin 0.4 mg/dL (0.2-1.3) 03/10/19 06:45 AST 208 U/L (17-59) H D 03/10/19 06:45 ALT 131 U/L (7-56) H 03/10/19 06:45 Alkaline Phosphatase 81 U/L (38-126) 03/10/19 06:45 Total Protein 6.4 g/dL (5.8-8.3) 03/10/19 06:45 Albumin 3.6 g/dL (3.0-4.8) 03/10/19 06:45 Globulin 2.8 gm/dL 03/10/19 06:45 Albumin/Globulin Ratio 1.3 (1.1-1.8) 03/10/19 06:45 Salicylates < 1 mg/dL (2.0-20.0) L 03/09/19 03:01 Urine Opiates Screen Negative (NEGATIVE) 03/09/19 04:00 Urine Methadone Screen Negative (NEGATIVE) 03/09/19 04:00 Acetaminophen < 10.0 ug/ml (10.0-20.0) L 03/09/19 03:01 Ur Barbiturates Screen Negative (NEGATIVE) 03/09/19 04:00 Ur Phencyclidine Scrn Negative (NEGATIVE) 03/09/19 04:00 Ur Amphetamines Screen Negative (NEGATIVE) 03/09/19 04:00 U Benzodiazepines Scrn Positive (NEGATIVE) H 03/09/19 04:00 U Oth Cocaine Metabols Negative (NEGATIVE) 03/09/19 04:00 U Cannabinoids Screen Negative (NEGATIVE) 03/09/19 04:00 Alcohol, Quantitative 352 mg/dL (0-10) H* 03/09/19 03:01 - Hospital Course Hospital Course: Oleg Peralta, PGY-1, Internal Medicine Discharge Summary for Dr. Xiong 28 year old male with past medical history of polysubstance abuse, alcohol abuse/withdrawal, bipolar disorder, depression, anxiety, and seizures presented status post drug overdose. Patient was initially somnolent and not responding to verbal stimulation but opened eyes spontaneously. Patient had taken 9 tablets of seroquel 100 mg and 4 tablets of ativan 1 mg in addition to 1 pint of alcohol leading to overdose. He was previously here one week ago for alcohol abuse. Upon admission, he reported taking these medications and alcohol because he wanted to "feel good". He denied any suicidal ideations. He reported going to rehabilitation at [facility] for 6 days, 3 weeks ago. He has been living with his mother and is currently unemployed. Upon admission, patient was started on CIWA protocol with scores ranging from 4- 8 over the first day. Subsequently, CIWA scores reduced to 1. Upon admission, patient was responsive but drowsy for the first 24 hours. Subsequently, as the medication and alcohol wore off, he was more alert and awake. On this admission, he was on ativan 1 mg Q6PRN for withdrawal symptoms, MVI, thiamine, and folic acid. Patient was also given nicotine patch for tobacco abuse history. He was also started on duonebs 3 Q4 as needed for shortness of breath. Patient today was walking around his room calmly, and had no acute distress. He was found to be stable and ready for discharge. Patient was counseled extensively regarding the importance of cessation of alcohol and substance abuse. He was offered to follow up with psychiatry, Dr. Mi, outpatient, but at this time, he is unwilling. Dr. Orellana recommended patient to go to inpatient rehabilitation, but the patient is not interested at this time. He was told to follow up with Alcoholics Anonymous or facility for rehabilitation. He was told to discontinue alcohol, tobacco, and recreational drug use. Patient was told to consider following up with psychiatry in the future. Patient was told to take all home medications as prescribed. Patient was told to return to the emergency department if he had any new or concerning symptoms. This is a brief summary of the events that transpired at the hospital. For more information, please refer to the hospital documentation. Discharge diagnoses - Date & Time of H&P Date of H&P: 03/11/19 Time of H&P: 09:30 Discharge Exam - Head Exam Head Exam: ATRAUMATIC, NORMAL INSPECTION, NORMOCEPHALIC - Eye Exam Eye Exam: EOMI, PERRL Pupil Exam: NORMAL ACCOMODATION - ENT Exam ENT Exam: Mucous Membranes Moist - Neck Exam Neck exam: Full Rom, Normal Inspection - Respiratory Exam Respiratory Exam: Clear to PA & Lateral, NORMAL BREATHING PATTERN. absent: Rales, Rhonchi, Wheezes - Cardiovascular Exam Cardiovascular Exam: REGULAR RHYTHM, RRR, +S1, +S2. absent: Clicks, Gallop, Rubs - GI/Abdominal Exam GI & Abdominal Exam: Normal Bowel Sounds, Soft. absent: Distended, Firm, Guarding, Tenderness - Extremities Exam Extremities exam: full ROM, normal inspection - Neurological Exam Neurological exam: Alert, CN II-XII Intact, Normal Gait, Oriented x3 - Psychiatric Exam Psychiatric exam: Normal Affect, Normal Mood - Skin Skin Exam: Dry, Intact, Normal Color Discharge Plan - Discharge Medications Prescriptions: chlordiazePOXIDE [Chlordiazepoxide HCl] 5 mg PO TID #6 cap Folic Acid 1 mg PO DAILY 30 Days #30 tab Multimineral/Multivitamin [Therapeutic-M Tab] 1 tab PO DAILY 30 Days #30 tab Nicotine 14 mg/24 hr [Nicoderm CQ] 1 patch TD DAILY 30 Days #30 patch Thiamine [Vitamin B1 Tab] 100 mg PO DAILY 30 Days #30 tab - Follow Up Plan Condition: STABLE Disposition: HOME/ ROUTINE Instructions: Alcohol Withdrawal (DC), Apraxia (DC), Bipolar Disorder (DC), Narcotic Overdose (DC), Polysubstance Abuse (DC) Additional Instructions: Please follow up with your PCP within 3-5 days. Please discontinue alcohol, tobacco, and recreational drug use Please follow up with Alcoholic Anonymous or rehabilitation for assistance of discontinuation of substances. Please consider following up with psychiatry in the future. Please take all home medications as prescribed. Please return to the emergency department if you have any new or concerning symptoms. Referrals: Tess Pierce FNP-BC [Primary Care Provider] - Elisabeth Mi MD [Staff Provider] - <Alejandro Xiong - Last Filed: 03/11/19 13:26> Provider - Provider Date of Admission: 03/09/19 04:12 Attending physician: Alejandro Xiong MD Primary care physician: TEX Granda Consults: 03/09/19 10:25 Psychiatry Consult Routine Comment: Consulting Provider: Hollie Orellana Consulting Physician: Hollie Orellana Reason for Consult: drug o/d, polysubstance, depression, anxiety Hospital Course - Lab Results Lab Results: Most Recent Lab Values WBC 5.2 10^3/uL (4.5-11.0) 03/11/19 09:00 RBC 4.21 10^6/uL (3.5-6.1) 03/11/19 09:00 Hgb 11.5 g/dL (14.0-18.0) L 03/11/19 09:00 Hct 36.7 % (42.0-52.0) L 03/11/19 09:00 MCV 87.2 fl (80.0-105.0) 03/11/19 09:00 MCH 27.3 pg (25.0-35.0) 03/11/19 09:00 MCHC 31.3 g/dl (31.0-37.0) 03/11/19 09:00 RDW 17.6 % (11.5-14.5) H 03/11/19 09:00 Plt Count 174 10^3/uL (120.0-450.0) 03/11/19 09:00 MPV 10.8 fl (7.0-11.0) 03/11/19 09:00 Neut % (Auto) 42.2 % (50.0-68.0) L 03/11/19 09:00 Lymph % (Auto) 44.8 % (22.0-35.0) H 03/11/19 09:00 Rolette % (Auto) 8.7 % (1.0-6.0) H 03/11/19 09:00 Eos % (Auto) 3.5 % (1.5-5.0) 03/11/19 09:00 Baso % (Auto) 0.8 % (0.0-3.0) 03/11/19 09:00 Lymph # (Auto) 2.3 (1.2-3.4) 03/11/19 09:00 Rolette # (Auto) 0.5 (0.1-0.6) 03/11/19 09:00 Eos # (Auto) 0.2 (0.0-0.7) 03/11/19 09:00 Baso # (Auto) 0.04 K/mm3 (0.0-2.0) 03/11/19 09:00 Absolute Neuts (auto) 2.18 (1.4-6.5) 03/11/19 09:00 pCO2 35 mm/Hg (35-45) 03/09/19 03:10 pO2 93.0 mm/Hg (80-100) 03/09/19 03:10 HCO3 20.7 mmol/L (21-28) L 03/09/19 03:10 ABG pH 7.38 (7.35-7.45) 03/09/19 03:10 ABG Total CO2 21.8 mmol.L (22-28) L 03/09/19 03:10 ABG O2 Saturation 95.2 % (95-98) 03/09/19 03:10 ABG O2 Content 14.9 ML/dl (15-23) L 03/09/19 03:10 ABG Base Excess -3.9 mmol/L (-2.0-3.0) L 03/09/19 03:10 ABG Hemoglobin 11.3 g/dL (11.7-17.4) L 03/09/19 03:10 ABG Carboxyhemoglobin 2.1 % (0.5-1.5) H 03/09/19 03:10 POC ABG HHb (Measured) 4.7 % (0-5) 03/09/19 03:10 ABG Methemoglobin 0.0 % (0.0-3.0) 03/09/19 03:10 ABG O2 Capacity 15.7 mL/dl (16-24) L 03/09/19 03:10 Hgb O2 Saturation 93.3 % (95.0-98.0) L 03/09/19 03:10 FiO2 28.0 % 03/09/19 03:10 Sodium 141 mmol/L (132-148) 03/11/19 09:00 Potassium 3.6 mmol/L (3.6-5.0) 03/11/19 09:00 Chloride 108 mmol/L (98-107) H 03/11/19 09:00 Carbon Dioxide 21 mmol/L (21-33) 03/11/19 09:00 Anion Gap 15 (10-20) 03/11/19 09:00 BUN 14 mg/dL (7-21) 03/11/19 09:00 Creatinine 0.8 mg/dl (0.8-1.5) 03/11/19 09:00 Est GFR ( Amer) > 60 03/11/19 09:00 Est GFR (Non-Af Amer) > 60 03/11/19 09:00 Random Glucose 115 mg/dL (70-110) H 03/11/19 09:00 Calcium 8.7 mg/dL (8.4-10.5) 03/11/19 09:00 Phosphorus 4.6 mg/dL (2.5-4.5) H 03/10/19 06:45 Magnesium 1.6 mg/dL (1.7-2.2) L 03/10/19 06:45 Total Bilirubin 0.3 mg/dL (0.2-1.3) 03/11/19 09:00 AST 80 U/L (17-59) H D 03/11/19 09:00 ALT 98 U/L (7-56) H 03/11/19 09:00 Alkaline Phosphatase 98 U/L (38-126) 03/11/19 09:00 Total Protein 7.1 g/dL (5.8-8.3) 03/11/19 09:00 Albumin 4.1 g/dL (3.0-4.8) 03/11/19 09:00 Globulin 3.0 gm/dL 03/11/19 09:00 Albumin/Globulin Ratio 1.4 (1.1-1.8) 03/11/19 09:00 Salicylates < 1 mg/dL (2.0-20.0) L 03/09/19 03:01 Urine Opiates Screen Negative (NEGATIVE) 03/09/19 04:00 Urine Methadone Screen Negative (NEGATIVE) 03/09/19 04:00 Acetaminophen < 10.0 ug/ml (10.0-20.0) L 03/09/19 03:01 Ur Barbiturates Screen Negative (NEGATIVE) 03/09/19 04:00 Ur Phencyclidine Scrn Negative (NEGATIVE) 03/09/19 04:00 Ur Amphetamines Screen Negative (NEGATIVE) 03/09/19 04:00 U Benzodiazepines Scrn Positive (NEGATIVE) H 03/09/19 04:00 U Oth Cocaine Metabols Negative (NEGATIVE) 03/09/19 04:00 U Cannabinoids Screen Negative (NEGATIVE) 03/09/19 04:00 Alcohol, Quantitative 352 mg/dL (0-10) H* 03/09/19 03:01 Attending/Attestation - Attestation I have personally seen and examined this patient.: Yes I have fully participated in the care of the patient.: Yes I have reviewed all pertinent clinical information, including history, physical exam and plan: Yes Notes (Text): 03/11/19 13:24 Attending note; Patient seen and examined with resident. Ambulating in the hallway. Talking to his brother over the phone. Patient is more alert and awake. Currently tolerating diet. Patient is a 28-year-old male with past medical history significant for polysubstance abuse, alcohol abuse and withdrawal, bipolar disorder, depression, and anxiety that presented to the emergency room with alcohol with drawal symptoms. 1. Alcohol abuse and Ativan and Seroquel abuse. Poison control informed. EKG showed no acute QT prolongation. Patient is clinically stable now. Psychiatric evaluation appreciated . Treated with IV Ativan. patient continuously asking for ativan. Continue thiamine, folic acid, and multivitamin. Counseled at length on alcohol cessation. Patient just got released from alcohol rehab. Does not follow-up with AA meetings. Psychiatrist gave information about outpatient programs. Patient was educated by social science research assistant multiple times about outpatient rehab. 2. Transaminitis. Downtrending. Secondary to alcohol abuse. Continue to monitor. 3. Polysubstance abuse. Patient counseled at length on cessation. UDS positive for benzodiazepine. 4. Tobacco abuse. Counseled on cessation. Continue Nicoderm 5. Bipolar disorder. Depression and anxiety. Patient needs close follow-up with outpatient psychiatrist. 6. Benzodiazepine seeking behavior. Patient was discharged with low-dose L ibrium. Advised to follow-up with psychiatrist. Monitor closely. Prognosis is poor secondary to continuous alcohol and benzodiazepine abuse noncompliance with follow-up.
[2019-03-11 09:37] LABS: ALB/GLOB RATIO 1.4 (1.1-1.8); ALBUMIN 4.1 g/dL (3.0-4.8); ALT/SGPT 98 U/L (7-56); AST/SGOT 80 U/L (17-59); BLOOD UREA NITROGEN 14 mg/dL (7-21); CALCIUM 8.7 mg/dL (8.4-10.5); GFR NON-AFRICAN AMERICAN > 60
[2019-03-11] MEDS: Multivitamin With Minerals Tab PO SCH (11:17)
== END 2019-03-11 12:17 | disposition home or self-care (01) | DRG 449 ==
LOC: ED 02:19 → ERH 04:12 → 2RSO 05:30 → 5RSO 03-10 16:52
PROVIDERS: ADMIT Internal Medicine; ATTEND Internal Medicine
DX: T43.591A Poisoning by other antipsychotics and neuroleptics, accidental (unintentional), initial encounter (principal); F10.239 Alcohol dependence with withdrawal, unspecified; F13.10 Sedative, hypnotic or anxiolytic abuse, uncomplicated; R56.9 Unspecified convulsions; T51.0X1A Toxic effect of ethanol, accidental (unintentional), initial encounter; F10.229 Alcohol dependence with intoxication, unspecified; F31.9 Bipolar disorder, unspecified; F41.9 Anxiety disorder, unspecified; E78.5 Hyperlipidemia, unspecified; F17.210 Nicotine dependence, cigarettes, uncomplicated; Y90.8 Blood alcohol level of 240 mg/100 ml or more; I45.10 Unspecified right bundle-branch block; K70.10 Alcoholic hepatitis without ascites; Z91.19 Patient's noncompliance with other medical treatment and regimen; Z87.11 Personal history of peptic ulcer disease

== ENCOUNTER 2019-03-16 18:55 | Inpatient (IN) | payer MEDICAID ==
[2019-03-16 18:57] VITALS: BMI 30.8
[2019-03-16] MEDS ORDERED: Sodium Chloride 0.9% 1,000 ML IV STA (20:15)
[2019-03-16 20:40] LABS: BASO # 0.06 K/mm3 (0.0-2.0); BASO % 0.7 % (0.0-3.0); EOS # 0.1 (0.0-0.7); EOS % 1.2 % (1.5-5.0); HEMOGLOBIN 12.9 g/dL (14.0-18.0); LYMPH # 2.8 (1.2-3.4); LYMPH % 30.8 % (22.0-35.0); MEAN CELL VOLUME 84.9 fl (80.0-105.0); MEAN CORPUSCULAR HEMOGLOBIN 27.5 pg (25.0-35.0); MEAN CORPUSCULAR HGB CONC 32.4 g/dl (31.0-37.0); MEAN PLATELET VOLUME 10.1 fl (7.0-11.0); MONO # 0.6 (0.1-0.6); MONO % 6.3 % (1.0-6.0); RBC 4.69 10^6/uL (3.5-6.1); WHITE BLOOD COUNT 9.1 10^3/uL (4.5-11.0)
[2019-03-16 21:03] LABS: TROPONIN I < 0.01 ng/mL
[2019-03-16 21:04] LABS: ALB/GLOB RATIO 1.4 (1.1-1.8); ALBUMIN 4.8 g/dL (3.0-4.8); ALT/SGPT 119 U/L (7-56); AST/SGOT 101 U/L (17-59); BLOOD UREA NITROGEN 14 mg/dL (7-21); CALCIUM 10.7 mg/dL (8.4-10.5); GFR NON-AFRICAN AMERICAN > 60; LIPASE 38 U/L (23-300)
[2019-03-16 21:12] LABS: CK-MB 1.3 ng/mL (0.0-3.6)
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
[2019-03-17] MEDS ORDERED: Multivitamin (MVI) 10 ML, Thiamine 100 MG, Folic Acid 1 MG in Dextrose 5% In Water 1,00... IV ONE (01:15)
[2019-03-17 02:13] LABS: PH,URINE 7.5 (4.7-8.0); URINE BILIRUBIN NEGATIVE (NEGATIVE); URINE BLOOD NEGATIVE (NEGATIVE); URINE GLUCOSE (UA) NEGATIVE (NEGATIVE); URINE LEUKOCYTE ESTERASE NEGATIVE Leu/uL (NEGATIVE); URINE PROTEIN NEGATIVE mg/dL (<30 mg/dL); URINE UROBILINOGEN 0.2 E.U./dL (<1 E.U./dL)
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
[2019-03-17 02:15] LABS: URINE APPEARANCE CLEAR (CLEAR); URINE COLOR YELLOW (YELLOW)
[2019-03-17] MEDS: Folic Acid 1 MG, Thiamine 100 MG, Multivitamin (MVI) 10 ML in Dextrose 5% In Water 1,00... IV SCH ×3 (02:30→22:24)
--- NOTE | 2019-03-17 08:30 | RAD ---
Date of service: 03/16/2019 HISTORY: abd pain COMPARISON: 03/09/2019 TECHNIQUE: 1 view obtained. FINDINGS: LUNGS: No active pulmonary disease. PLEURA: No significant pleural effusion identified, no pneumothorax apparent. CARDIOVASCULAR: No aortic atherosclerotic calcification present. Normal cardiac size. No pulmonary vascular congestion. OSSEOUS STRUCTURES: No significant abnormalities. VISUALIZED UPPER ABDOMEN: Normal. OTHER FINDINGS: None. IMPRESSION: No active disease.
--- NOTE | 2019-03-17 09:28 | CP.PCM.PCO ---
Physician Communication Note - Physician Communication Note Physician Communication Note: consult was canceled. D/w .
--- NOTE | 2019-03-17 09:55 | CT ---
Date of service: 03/16/2019 PROCEDURE: CT Abdomen and Pelvis with contrast HISTORY: abd pain COMPARISON: None. TECHNIQUE: Contrast dose: 150 cc of Omni 350 Radiation dose: Total exam DLP = 812.26 mGy-cm. This CT exam was performed using one or more of the following dose reduction techniques: Automated exposure control, adjustment of the mA and/or kV according to patient size, and/or use of iterative reconstruction technique. FINDINGS: LOWER THORAX: Unremarkable. LIVER: Unremarkable. No gross lesion or ductal dilatation. Fatty infiltration of the liver. GALLBLADDER AND BILE DUCTS: Unremarkable. PANCREAS: There is complete atrophy and fatty infiltration of the pancreas. SPLEEN: Unremarkable. ADRENALS: Unremarkable. No mass. KIDNEYS AND URETERS: Unremarkable. No hydronephrosis. No solid mass. VASCULATURE: Unremarkable. No aortic aneurysm. No aortic atherosclerotic calcification or mural plaque present. BOWEL: Unremarkable. No obstruction. No gross mural thickening. APPENDIX: Normal appendix. PERITONEUM: Unremarkable. No free fluid. No free air. LYMPH NODES: Unremarkable. No enlarged lymph nodes. BLADDER: Unremarkable. REPRODUCTIVE: Unremarkable. BONES: No acute fracture. OTHER FINDINGS: The report concurs with the preliminary [facility] report IMPRESSION: There is complete atrophy and fatty infiltration of the pancreas. Severe fatty infiltration of the liver No acute intra-abdominal or intrapelvic abnormality
--- NOTE | 2019-03-17 10:44 | CARD ---
APPROVED REPORT Date of service: 03/16/2019 EKG Measurement Heart [id number] <Conclusion> Sinus tachycardia Possible Left atrial enlargement Incomplete right bundle branch block Nonspecific T wave abnormality Abnormal ECG
[2019-03-17 23:04] LABS: BARBITURATES, UR NEGATIVE (NEGATIVE); BENZODIAZEPINES, UR POSITIVE (NEGATIVE); OPIATES, UR NEGATIVE (NEGATIVE); PHENCYCLIDINE, UR NEGATIVE (NEGATIVE)
[2019-03-18 06:27] VITALS: O2SAT 96
[2019-03-18 07:34] LABS: BASO # 0.06 K/mm3 (0.0-2.0); BASO % 0.9 % (0.0-3.0); EOS # 0.3 (0.0-0.7); HEMOGLOBIN 11.4 g/dL (14.0-18.0); LYMPH # 2.5 (1.2-3.4); LYMPH % 37.6 % (22.0-35.0); MEAN CELL VOLUME 85.8 fl (80.0-105.0); MEAN CORPUSCULAR HGB CONC 31.4 g/dl (31.0-37.0); MEAN PLATELET VOLUME 9.9 fl (7.0-11.0); MONO # 0.4 (0.1-0.6); MONO % 6.1 % (1.0-6.0); RBC 4.23 10^6/uL (3.5-6.1); RED CELL DISTRIBUTION WIDTH 18.7 % (11.5-14.5); WHITE BLOOD COUNT 6.7 10^3/uL (4.5-11.0)
[2019-03-18 07:55] LABS: ALB/GLOB RATIO 1.4 (1.1-1.8); ALBUMIN 4.2 g/dL (3.0-4.8); ALT/SGPT 81 U/L (7-56); AST/SGOT 59 U/L (17-59); BLOOD UREA NITROGEN 12 mg/dL (7-21); CALCIUM 8.9 mg/dL (8.4-10.5); GFR NON-AFRICAN AMERICAN > 60
[2019-03-18] MEDS: Folic Acid 1 MG, Thiamine 100 MG, Multivitamin (MVI) 10 ML in Dextrose 5% In Water 1,00... IV SCH (12:13)
[2019-03-18 12:28] VITALS: BP 138/91; RESP 21; TEMP 98.3
--- NOTE | 2019-03-18 14:16 | CP.PCM.DIS ---
<Lucinda Cisneros - Last Filed: 03/18/19 14:10> Provider - Provider Date of Admission: 03/17/19 01:10 Attending physician: Nora De Leon MD Consults: 03/17/19 02:16 Social Work Referral Routine Comment: ETOH, alcoholic anonymous, substance abuse Physician Instructions: Reason For Exam: admission assessment 03/17/19 04:59 Social Work Referral Routine Comment: admission assessment Physician Instructions: Reason For Exam: otoniel score 9 03/17/19 05:04 Transition In Care/Readmission Reduction Routine Comment: Physician Instructions: Reason For Exam: admission assessment Time Spent in preparation of Discharge (in minutes): 35 Hospital Course - Lab Results Lab Results: Most Recent Lab Values WBC 6.7 10^3/uL (4.5-11.0) D 03/18/19 07:00 RBC 4.23 10^6/uL (3.5-6.1) 03/18/19 07:00 Hgb 11.4 g/dL (14.0-18.0) L 03/18/19 07:00 Hct 36.3 % (42.0-52.0) L 03/18/19 07:00 MCV 85.8 fl (80.0-105.0) 03/18/19 07:00 MCH 27.0 pg (25.0-35.0) 03/18/19 07:00 MCHC 31.4 g/dl (31.0-37.0) 03/18/19 07:00 RDW 18.7 % (11.5-14.5) H 03/18/19 07:00 Plt Count 212 10^3/uL (120.0-450.0) 03/18/19 07:00 MPV 9.9 fl (7.0-11.0) 03/18/19 07:00 Neut % (Auto) 51.4 % (50.0-68.0) 03/18/19 07:00 Lymph % (Auto) 37.6 % (22.0-35.0) H 03/18/19 07:00 Coffee % (Auto) 6.1 % (1.0-6.0) H 03/18/19 07:00 Eos % (Auto) 4.0 % (1.5-5.0) 03/18/19 07:00 Baso % (Auto) 0.9 % (0.0-3.0) 03/18/19 07:00 Lymph # (Auto) 2.5 (1.2-3.4) 03/18/19 07:00 Coffee # (Auto) 0.4 (0.1-0.6) 03/18/19 07:00 Eos # (Auto) 0.3 (0.0-0.7) 03/18/19 07:00 Baso # (Auto) 0.06 K/mm3 (0.0-2.0) 03/18/19 07:00 Absolute Neuts (auto) 3.42 (1.4-6.5) 03/18/19 07:00 Sodium 138 mmol/L (132-148) 03/18/19 07:00 Potassium 3.5 mmol/L (3.6-5.0) L 03/18/19 07:00 Chloride 103 mmol/L (98-107) 03/18/19 07:00 Carbon Dioxide 25 mmol/L (21-33) 03/18/19 07:00 Anion Gap 14 (10-20) 03/18/19 07:00 BUN 12 mg/dL (7-21) 03/18/19 07:00 Creatinine 0.9 mg/dl (0.8-1.5) 03/18/19 07:00 Est GFR ( Amer) > 60 03/18/19 07:00 Est GFR (Non-Af Amer) > 60 03/18/19 07:00 Random Glucose 112 mg/dL (70-110) H 03/18/19 07:00 Calcium 8.9 mg/dL (8.4-10.5) 03/18/19 07:00 Phosphorus 4.3 mg/dL (2.5-4.5) 03/18/19 07:00 Magnesium 1.8 mg/dL (1.7-2.2) 03/18/19 01:31 Total Bilirubin 0.4 mg/dL (0.2-1.3) 03/18/19 07:00 AST 59 U/L (17-59) D 03/18/19 07:00 ALT 81 U/L (7-56) H 03/18/19 07:00 Alkaline Phosphatase 77 U/L (38-126) 03/18/19 07:00 Lactate Dehydrogenase 655 U/L (333-699) 03/16/19 20:35 Total Creatine Kinase 297 U/L (35-230) H 03/16/19 20:35 CK-MB (CK-2) 1.3 ng/mL (0.0-3.6) 03/16/19 20:35 CK-MB (CK-2) % Cancelled 03/16/19 20:35 Troponin I < 0.01 ng/mL 03/16/19 20:35 Total Protein 7.3 g/dL (5.8-8.3) 03/18/19 07:00 Albumin 4.2 g/dL (3.0-4.8) 03/18/19 07:00 Globulin 3.1 gm/dL 03/18/19 07:00 Albumin/Globulin Ratio 1.4 (1.1-1.8) 03/18/19 07:00 Lipase 38 U/L (23-300) 03/16/19 20:35 Urine Color Yellow (YELLOW) 03/17/19 01:11 Urine Appearance Clear (CLEAR) 03/17/19 01:11 Urine pH 7.5 (4.7-8.0) 03/17/19 01:11 Ur Specific Pinson 1.010 (1.005-1.035) 03/17/19 01:11 Urine Protein Negative mg/dL (<30 mg/dL) 03/17/19 01:11 Urine Glucose (UA) Negative mg/dL (NEGATIVE) 03/17/19 01:11 Urine Ketones Negative mg/dL (NEGATIVE) 03/17/19 01:11 Urine Blood Negative (NEGATIVE) 03/17/19 01:11 Urine Nitrate Negative (NEGATIVE) 03/17/19 01:11 Urine Bilirubin Negative (NEGATIVE) 03/17/19 01:11 Urine Urobilinogen 0.2 E.U./dL (<1 E.U./dL) 03/17/19 01:11 Ur Leukocyte Esterase Negative Kiersten/uL (NEGATIVE) 03/17/19 01:11 Urine Opiates Screen Negative (NEGATIVE) 03/17/19 22:33 Urine Methadone Screen Negative (NEGATIVE) 03/17/19 22:33 Ur Barbiturates Screen Negative (NEGATIVE) 03/17/19 22:33 Ur Phencyclidine Scrn Negative (NEGATIVE) 03/17/19 22:33 Ur Amphetamines Screen Negative (NEGATIVE) 03/17/19 22:33 U Benzodiazepines Scrn Positive (NEGATIVE) H 03/17/19 22:33 U Oth Cocaine Metabols Negative (NEGATIVE) 03/17/19 22:33 U Cannabinoids Screen Negative (NEGATIVE) 03/17/19 22:33 Alcohol, Quantitative 174 mg/dL (0-10) H 03/16/19 20:35 - Hospital Course Hospital Course: Upon admission, 28 y/o M with PMH polysubstance abuse (including benzodiazepines, heroin, cocaine, and marijuana), alcohol abuse, bipolar disorder, depression, anxiety, and seizures returns to ED with symptoms of ETOH withdrawal. Pt report he had 1 pint of vodka this am which did not "mix well' and has had nausea vomiting since then. Upon interview, he reports mild abdominal pain and anxiety, mild shakes, but denies fevers, chills headache, dizziness, chest pain, palpitations, shortness of breath, nausea, vomiting, constipation, diarrhea, dysuria, hematuria. During hospital course, initial CIWA score was 10 but later was 1 or less over the next 24 hours. Patient started on ativan prn and rob and required less ativan during hospital course. CXR did not show any active disease CTAP shows complete atrophy and infiltration of the pancreas. Severe fatty infiltration of the liver. Patient was informed of CTAP results and encourage to stop substance abuse including alcohol. On day of discharge, patient was tolerating HHD without complaints and was not requiring any prn ativan. He was hemodynamically stable and did not exhibit any signs of withdrawel with a CIWA score of 0. All of patient's questions were answered to satisfaction and patient agrees with discharge today. Discharge Exam - Head Exam Head Exam: NORMAL INSPECTION, NORMOCEPHALIC - Eye Exam Eye Exam: EOMI Pupil Exam: PERRL - ENT Exam ENT Exam: Mucous Membranes Moist - Neck Exam Neck exam: Normal Inspection - Respiratory Exam Respiratory Exam: Clear to PA & Lateral. absent: Accessory Muscle Use, Wheezes, Respiratory Distress - Cardiovascular Exam Cardiovascular Exam: +S1, +S2. absent: Tachycardia - GI/Abdominal Exam GI & Abdominal Exam: Normal Bowel Sounds, Soft. absent: Firm, Guarding, Rebound, Tenderness - Back Exam Back exam: NORMAL INSPECTION - Neurological Exam Neurological exam: Alert, CN II-XII Intact, Oriented x3 Additional comments: no diaphoresis or tremors noted - Skin Skin Exam: Normal Color, Warm Discharge Plan - Discharge Medications Prescriptions: Omeprazole 20 mg PO DAILY #30 capsule.dr - Follow Up Plan Condition: FAIR Disposition: HOME/ ROUTINE Additional Instructions: Please follow up with your primary care doctor within 3-5 days. Please follow up with your psychiatrist within 3-5 days of discharge. Please obtain refills from your PMD and psychiatrist. As per our discussion you do need refills for any medications at this time. As per our extensive discussion, please stop using alcohol, tobacco, and recreational drug use. Please follow up with Alcoholic Anonymous or rehabilitation for assistance of discontinuation of substances. Please take all home medications as previously prescribed. As per your request, we have provided you a refill for your omeprazole. Please return to the ED for any new or worsening symptoms. Referrals: Tess Pierce FNP-BC [Family Nurse Prac Board Cert] - Elisabeth Mi MD [Staff Provider] - <Nora De Leon - Last Filed: 03/18/19 14:24> Provider - Provider Date of Admission: 03/17/19 01:10 Attending physician: Nora De Leon MD Consults: 03/17/19 02:16 Social Work Referral Routine Comment: ETOH, alcoholic anonymous, substance abuse Physician Instructions: Reason For Exam: admission assessment 03/17/19 04:59 Social Work Referral Routine Comment: admission assessment Physician Instructions: Reason For Exam: otoniel score 9 03/17/19 05:04 Transition In Care/Readmission Reduction Routine Comment: Physician Instructions: Reason For Exam: admission assessment Hospital Course - Lab Results Lab Results: Most Recent Lab Values WBC 6.7 10^3/uL (4.5-11.0) D 03/18/19 07:00 RBC 4.23 10^6/uL (3.5-6.1) 03/18/19 07:00 Hgb 11.4 g/dL (14.0-18.0) L 03/18/19 07:00 Hct 36.3 % (42.0-52.0) L 03/18/19 07:00 MCV 85.8 fl (80.0-105.0) 03/18/19 07:00 MCH 27.0 pg (25.0-35.0) 03/18/19 07:00 MCHC 31.4 g/dl (31.0-37.0) 03/18/19 07:00 RDW 18.7 % (11.5-14.5) H 03/18/19 07:00 Plt Count 212 10^3/uL (120.0-450.0) 03/18/19 07:00 MPV 9.9 fl (7.0-11.0) 03/18/19 07:00 Neut % (Auto) 51.4 % (50.0-68.0) 03/18/19 07:00 Lymph % (Auto) 37.6 % (22.0-35.0) H 03/18/19 07:00 Coffee % (Auto) 6.1 % (1.0-6.0) H 03/18/19 07:00 Eos % (Auto) 4.0 % (1.5-5.0) 03/18/19 07:00 Baso % (Auto) 0.9 % (0.0-3.0) 03/18/19 07:00 Lymph # (Auto) 2.5 (1.2-3.4) 03/18/19 07:00 Coffee # (Auto) 0.4 (0.1-0.6) 03/18/19 07:00 Eos # (Auto) 0.3 (0.0-0.7) 03/18/19 07:00 Baso # (Auto) 0.06 K/mm3 (0.0-2.0) 03/18/19 07:00 Absolute Neuts (auto) 3.42 (1.4-6.5) 03/18/19 07:00 Sodium 138 mmol/L (132-148) 03/18/19 07:00 Potassium 3.5 mmol/L (3.6-5.0) L 03/18/19 07:00 Chloride 103 mmol/L (98-107) 03/18/19 07:00 Carbon Dioxide 25 mmol/L (21-33) 03/18/19 07:00 Anion Gap 14 (10-20) 03/18/19 07:00 BUN 12 mg/dL (7-21) 03/18/19 07:00 Creatinine 0.9 mg/dl (0.8-1.5) 03/18/19 07:00 Est GFR ( Amer) > 60 03/18/19 07:00 Est GFR (Non-Af Amer) > 60 03/18/19 07:00 Random Glucose 112 mg/dL (70-110) H 03/18/19 07:00 Calcium 8.9 mg/dL (8.4-10.5) 03/18/19 07:00 Phosphorus 4.3 mg/dL (2.5-4.5) 03/18/19 07:00 Magnesium 1.8 mg/dL (1.7-2.2) 03/18/19 01:31 Total Bilirubin 0.4 mg/dL (0.2-1.3) 03/18/19 07:00 AST 59 U/L (17-59) D 03/18/19 07:00 ALT 81 U/L (7-56) H 03/18/19 07:00 Alkaline Phosphatase 77 U/L (38-126) 03/18/19 07:00 Lactate Dehydrogenase 655 U/L (333-699) 03/16/19 20:35 Total Creatine Kinase 297 U/L (35-230) H 03/16/19 20:35 CK-MB (CK-2) 1.3 ng/mL (0.0-3.6) 03/16/19 20:35 CK-MB (CK-2) % Cancelled 03/16/19 20:35 Troponin I < 0.01 ng/mL 03/16/19 20:35 Total Protein 7.3 g/dL (5.8-8.3) 03/18/19 07:00 Albumin 4.2 g/dL (3.0-4.8) 03/18/19 07:00 Globulin 3.1 gm/dL 03/18/19 07:00 Albumin/Globulin Ratio 1.4 (1.1-1.8) 03/18/19 07:00 Lipase 38 U/L (23-300) 03/16/19 20:35 Urine Color Yellow (YELLOW) 03/17/19 01:11 Urine Appearance Clear (CLEAR) 03/17/19 01:11 Urine pH 7.5 (4.7-8.0) 03/17/19 01:11 Ur Specific Pinson 1.010 (1.005-1.035) 03/17/19 01:11 Urine Protein Negative mg/dL (<30 mg/dL) 03/17/19 01:11 Urine Glucose (UA) Negative mg/dL (NEGATIVE) 03/17/19 01:11 Urine Ketones Negative mg/dL (NEGATIVE) 03/17/19 01:11 Urine Blood Negative (NEGATIVE) 03/17/19 01:11 Urine Nitrate Negative (NEGATIVE) 03/17/19 01:11 Urine Bilirubin Negative (NEGATIVE) 03/17/19 01:11 Urine Urobilinogen 0.2 E.U./dL (<1 E.U./dL) 03/17/19 01:11 Ur Leukocyte Esterase Negative Kiersten/uL (NEGATIVE) 03/17/19 01:11 Urine Opiates Screen Negative (NEGATIVE) 03/17/19 22:33 Urine Methadone Screen Negative (NEGATIVE) 03/17/19 22:33 Ur Barbiturates Screen Negative (NEGATIVE) 03/17/19 22:33 Ur Phencyclidine Scrn Negative (NEGATIVE) 03/17/19 22:33 Ur Amphetamines Screen Negative (NEGATIVE) 03/17/19 22:33 U Benzodiazepines Scrn Positive (NEGATIVE) H 03/17/19 22:33 U Oth Cocaine Metabols Negative (NEGATIVE) 03/17/19 22:33 U Cannabinoids Screen Negative (NEGATIVE) 03/17/19 22:33 Alcohol, Quantitative 174 mg/dL (0-10) H 03/16/19 20:35 Attending/Attestation - Attestation I have personally seen and examined this patient.: Yes I have fully participated in the care of the patient.: Yes I have reviewed all pertinent clinical information, including history, physical exam and plan: Yes Notes (Text): 03/18/19 14:18 28 year old male with past medical history of polysubstance abuse, alcohol abuse, and bipolar/depression who presented with complaint of alcohol withdrawal symptoms in addition to intractable nausea/vomiting. He was on banana and ativan rob/prn for withdrawal symptoms. This was tapered as his symptoms improved. He is no longer nauseous or vomiting. He is tolerating diet. CT findings of severe fatty infiltration and of liver and pancreas with atrophy were discussed with patient. Counselled on alcohol cessation. Hypokalemia was repleted. Transaminitis likely secondary to alcohol abuse and fatty liver also improved. Patient is discharged home to follow up with pmd. Follow up with psychiatrist. Counselled on alcohol abstinence. Nora De Leon MD Hospitalist.
[2019-03-18 16:52] VITALS: PULSE 79
[2019-03-19] MEDS ORDERED: Multivitamin Therapeutic Tab PO SCH (10:00)
== END 2019-03-18 17:00 | disposition home or self-care (01) | DRG 744 ==
LOC: ED 18:55 → ERH 03-17 01:10 → 2RSO 03-17 03:00
PROVIDERS: ADMIT Hospitalist; ATTEND Internal Medicine
DX: F10.239 Alcohol dependence with withdrawal, unspecified (principal); E87.6 Hypokalemia; F11.10 Opioid abuse, uncomplicated; F12.10 Cannabis abuse, uncomplicated; F14.10 Cocaine abuse, uncomplicated; F13.10 Sedative, hypnotic or anxiolytic abuse, uncomplicated; F17.210 Nicotine dependence, cigarettes, uncomplicated; F31.9 Bipolar disorder, unspecified; F41.9 Anxiety disorder, unspecified; K76.0 Fatty (change of) liver, not elsewhere classified; Y90.6 Blood alcohol level of 120-199 mg/100 ml; Z83.3 Family history of diabetes mellitus

== ENCOUNTER 2019-03-21 07:01 | Inpatient (IN) | payer MEDICAID ==
[2019-03-21 07:01] VITALS: BMI 30.8
[2019-03-21] MEDS ORDERED: Folic Acid 1 MG, Thiamine 100 MG, Multivitamin (MVI) 10 ML in Dextrose 5% In Water 1,00... IV ONE (07:29)
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
[2019-03-21 08:12] LABS: PH,URINE 5.5 (4.7-8.0); URINE BILIRUBIN NEGATIVE (NEGATIVE); URINE BLOOD NEGATIVE (NEGATIVE); URINE GLUCOSE (UA) NEGATIVE (NEGATIVE); URINE LEUKOCYTE ESTERASE NEGATIVE Leu/uL (NEGATIVE); URINE PROTEIN NEGATIVE mg/dL (<30 mg/dL); URINE UROBILINOGEN 0.2 E.U./dL (<1 E.U./dL)
[2019-03-21 08:24] LABS: URINE APPEARANCE CLEAR (CLEAR); URINE COLOR YELLOW (YELLOW)
[2019-03-21 08:27] LABS: BARBITURATES, UR NEGATIVE (NEGATIVE); BENZODIAZEPINES, UR POSITIVE (NEGATIVE); OPIATES, UR NEGATIVE (NEGATIVE); PHENCYCLIDINE, UR NEGATIVE (NEGATIVE)
[2019-03-21 08:30] LABS: BASO # 0.06 K/mm3 (0.0-2.0); BASO % 0.9 % (0.0-3.0); EOS # 0.2 (0.0-0.7); EOS % 3.2 % (1.5-5.0); HEMOGLOBIN 11.7 g/dL (14.0-18.0); LYMPH # 3.1 (1.2-3.4); LYMPH % 45.1 % (22.0-35.0); MEAN CELL VOLUME 86.4 fl (80.0-105.0); MEAN CORPUSCULAR HGB CONC 31.2 g/dl (31.0-37.0); MEAN PLATELET VOLUME 9.8 fl (7.0-11.0); MONO # 0.3 (0.1-0.6); MONO % 4.9 % (1.0-6.0); RBC 4.34 10^6/uL (3.5-6.1); RED CELL DISTRIBUTION WIDTH 19.5 % (11.5-14.5); WHITE BLOOD COUNT 6.9 10^3/uL (4.5-11.0)
[2019-03-21 08:40] LABS: ACETAMINOPHEN < 10.0 ug/ml (10.0-20.0); SALICYLATE < 1 mg/dL (2.0-20.0)
[2019-03-21 08:41] LABS: ALB/GLOB RATIO 1.4 (1.1-1.8); ALBUMIN 4.5 g/dL (3.0-4.8); ALT/SGPT 177 U/L (7-56); AST/SGOT 169 U/L (17-59); BLOOD UREA NITROGEN 13 mg/dL (7-21); CALCIUM 8.6 mg/dL (8.4-10.5); GFR NON-AFRICAN AMERICAN > 60
[2019-03-21 12:28] VITALS: O2SAT 98
[2019-03-21] MEDS: Multivitamin Therapeutic Tab PO SCH (13:20)
[2019-03-21] MEDS: Pantoprazole 40 mg EC Tab PO SCH (15:37)
--- NOTE | 2019-03-21 17:39 | CARD ---
APPROVED REPORT Date of service: 03/21/2019 EKG Measurement Heart [id number] <Conclusion> Normal sinus rhythm Incomplete right bundle branch block Borderline ECG
[2019-03-21] MEDS ORDERED: Magnesium Hydroxide Susp 30 ml UD PO PRN (18:13)
--- NOTE | 2019-03-21 18:39 | PCM.BM ---
<Alicia Bedoya - Last Filed: 03/21/19 18:36> Treatment Plan Problems - Problems identified on initial assessmt KNOWLEDGE DEFICIT/ALCOHOL Date Initiated: 03/21/19 Time Initiated: 18:00 Assessment reference: NA Status: Active Priority: 1 ANXIETY Date Initiated: 03/21/19 Time Initiated: 18:00 Assessment reference: NA Status: Active Priority: 2 INEFFECTIVE INDV COPING Date Initiated: 03/21/19 Time Initiated: 18:00 Assessment reference: NA Status: Active Priority: 3 HOPELESS/HELPLESS Date Initiated: 03/21/19 Time Initiated: 18:00 Assessment reference: NA Status: Active Priority: 4 Treatment assets and liabiliti Patient Assests: adapts well, cooperative, educated, ADL independent, good support system, negotiates basic needs, cognitively intact Patient Liabilities: relationship conflicts, substance abuse, medical problems - Milieu Protocol Maintain good personal hygiene: every shift Encourage regular showers, every shift Remind patient to perform daily oral care, every shift Assist patient to perform ADL's Maintain personal safety: daily Educate patient to report safety concerns to staff, daily Monitor environment for contraband/sharps Medication safety: Monitor for expected outcome, potential side effects: daily, Assess barriers to learning: daily, Assess readiness for medication education: daily Discharge/Continuing Care - Education Needs Education Needs: Patient Medication, Patient Diagnosis/Disease Process, Patient Coping Skills, Patient Placement options, Patient Community resources, Patient Activities of Daily Living, Patient Pain, Patient Nutrition, Patient Health Practices/Safety, Patient Personal Hygiene/Grooming, Patient Aftercare Safety Plan - Discharge Discharge Criteria: Tolerates medication w/o severe side effects, Free of Suicidal thoughts, Free of agitation, Normal sleep pattern, Ability to care for self, No longer exhibiting s/s of withdrawal, Reduction of target symptoms Discharge to:: Substance Abuse Rehab <Hollie Orellana - Last Filed: 03/22/19 13:54> - Diagnosis (1) Alcohol use disorder Status: Chronic Interventions: 03/22/19 13:55 Monitoring withdrawal symptoms Medical detoxification Pharmacotherapy for alcohol/benzos/opioid dependence Maintaining sobriety Relapse prevention Possible rehabilitation Motivational interviewing 12-step programs: AA meetings (2) MDD (major depressive disorder) Status: Chronic Interventions: 03/22/19 13:55 Psychoeducation Psychopharmacology/adjustment of medications as needed/ monitoring possible side effects Evaluate pt on daily basis Compliance with medications and follow up appointments Suicide and homicide risk assessment and prevention Relapse prevention Reduction of symptoms Improve functional status Family involvement As outpatient: cognitive behavioral therapy <Marie Vinson - Last Filed: 03/23/19 15:24>
[2019-03-21] MEDS: Alum-Mag Hydrox-Simethicone Susp (30 mL) PO PRN (19:04)
[2019-03-22] MEDS: Pantoprazole 40 mg EC Tab PO SCH ×2 (06:09→16:12)
[2019-03-22 08:00] LABS: HDL CHOLESTEROL 46 mg/dL (29-60)
[2019-03-22 08:11] LABS: LDL CHOLESTEROL 97 mg/dL (0-129)
[2019-03-22 08:19] LABS: FREE T4 0.6 ng/dL (0.78-2.19)
[2019-03-22] MEDS: Multivitamin Therapeutic Tab PO SCH (08:27)
[2019-03-22] MEDS: Alum-Mag Hydrox-Simethicone Susp (30 mL) PO PRN ×2 (11:07→21:19)
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
[2019-03-23] MEDS ORDERED: Levothyroxine 50 MCG TAB PO SCH (06:00)
[2019-03-23] MEDS: Pantoprazole 40 mg EC Tab PO SCH ×2 (06:05→16:33)
[2019-03-23] MEDS: Levothyroxine 25 MCG TAB PO SCH (06:06)
[2019-03-23] MEDS: Multivitamin Therapeutic Tab PO SCH (08:32)
--- NOTE | 2019-03-23 15:36 | PCM.PYCHPN ---
Psychiatric Progress Note - Psychiatric Progress Note Patient seen today, length of contact: 30min Patient Chief Complaint: "I feel like sh...t" Problems Identified/Issues Discussed: Alcohol addiction, complications, importance to go to inpatient rehab, medication compliance, suicide prevention. Medical Problems: See HPI Diagnostic Results: 03/21/19 08:10 03/21/19 08:10 Lab Results 03/22/19 07:30: RPR Nonreactive 03/22/19 07:30: Triglycerides 435 H, Cholesterol 201 H, LDL Cholesterol Direct 97, HDL Cholesterol 46 03/22/19 07:30: Free T4 0.60 L, TSH 3rd Generation 5.26 H 03/21/19 08:10: Alcohol, Quantitative 285 H 03/21/19 08:10: Salicylates < 1 L, Acetaminophen < 10.0 L 03/21/19 08:10: Sodium 145, Potassium 4.2, Chloride 108 H, Carbon Dioxide 22, Anion Gap 19, BUN 13, Creatinine 0.9, Est GFR ( Amer) > 60, Est GFR (Non- Af Amer) > 60, Random Glucose 97, Calcium 8.6, Magnesium 2.0, Total Bilirubin 0.4, AST 169 H D, ALT 177 H, Alkaline Phosphatase 78, Total Protein 7.7, Albumin 4.5, Globulin 3.2, Albumin/Globulin Ratio 1.4 03/21/19 08:10: WBC 6.9, RBC 4.34, Hgb 11.7 L, Hct 37.5 L, MCV 86.4, MCH 27.0, MCHC 31.2, RDW 19.5 H, Plt Count 230, MPV 9.8, Neut % (Auto) 45.9 L, Lymph % (Auto) 45.1 H, [place] % (Auto) 4.9, Eos % (Auto) 3.2, Baso % (Auto) 0.9, Lymph # (Auto) 3.1, [place] # (Auto) 0.3, Eos # (Auto) 0.2, Baso # (Auto) 0.06, Absolute Neuts (auto) 3.16 03/21/19 07:31: Urine Opiates Screen Negative, Urine Methadone Screen Negative, Ur Barbiturates Screen Negative, Ur Phencyclidine Scrn Negative, Ur Amphetamines Screen Negative, U Benzodiazepines Scrn Positive H, U Oth Cocaine Metabols Negative, U Cannabinoids Screen Negative 03/21/19 07:31: Urine Color Yellow, Urine Appearance Clear, Urine pH 5.5, Ur Specific [place] >= 1.030, Urine Protein Negative, Urine Glucose (UA) Negative, Urine Ketones Negative, Urine Blood Negative, Urine Nitrate Negative, Urine Bilirubin Negative, Urine Urobilinogen 0.2, Ur Leukocyte Esterase Negative Vital Signs Temp Pulse Resp BP Pulse Ox 03/23/19 07:12 97.5 F L 69 20 119/63 03/22/19 16:05 81 130/80 03/22/19 07:16 97.9 F 70 20 166/77 H 03/21/19 15:45 94 H 131/83 03/21/19 11:30 90 18 98 03/21/19 11:00 98.1 F 92 H 18 130/89 98 03/21/19 08:22 98.4 F 99 H 20 133/85 93 L 03/21/19 07:18 98.9 F 103 H 18 124/88 95 DSM 5 Symptoms Update: shortly pt is a 28 year old male, whose past medical history includes polysub stance abuse and alcohol abuse, h/o substance induced mood disorder, self reported h/o ?ADHD, possible bipolar disorder (but it is not sure because pt never been sober for significant amount of time in order to be diagnosed correctly), multiple ED/medical admissions, for the past 3months pt had 15 E D/med admissions. pt has h/o chronic noncompliance with f/u appts and medications, chronic resistance to go to inpatient rehab, pt also has h/o involuntary commitment at [facility] and h/o impulsive/suicidal behavior in the past (all of suicidal gestures were under the influence of alcohol or benzodiazepi brad), most recently pt was admitted to to [facility] [place] December 22-2018, history of [facility] medical site admission 11/25/18 after pt cut his left forearm which required reconstructive surgery as well as suturing, pt also was admitted to inpatient rehab about a month ago at [facility] in [place]. Patient requires further evaluation stabilization for depressive symptoms, possible suicidal ideation which patient expressed in the emergency room. Patient was seen initially in his room, later on the day treatment team meeting. Patient reported feeling like a "sh...t", pt reported that he had difficulty to fall asleep and to stay asleep, patient reported to feel anxious and withdrawing. Vital signs are stable, patient has fine upper extremity tremor. Patient still feels "hopeless, helpless, depressed" patient also reported to have passive wish to be , reported prior to come to the hospital he wanted to jump in front of the bus or jump off the balcony. Denied psychotic symptoms. As per staff patient is self isolating, not participating in unit activities. Patient complains of anxiety, I asked Vistaril to be resolved. So far patient tolerates medications well, no side effects observed or reported, aims 0, no EPS. Impression: DSM 5 Diagnosis: r/o MDD r/o bipolar spectrum Substance-induced mood disorder Alcohol use disorder severe dependence Benzodiazepines addiction We will monitor for alcohol withdrawal symptoms, so far under control. Medication Change: Yes (Ativan discontinued) Medical Record Reviewed: Yes Consults ordered or reviewed: Medical consult appreciated Mental Status Examination - Cognitive Function Orientation: Person, Place, Situation, Time Memory: Intact Attention: Poor Concentration: Poor Association: WNL Fund of Knowledge: WNL - Mood Mood: Depressed, Anxious - Affect Affect: Flat - Formal Thought Process Formal Thought Process: No Impairment - Suicidal Ideation Suicidal Ideation: Yes Plan: Passive wish to be - Homicidal Ideation Homicidal Ideation: No Goal/Treatment Plan - Goal/Treatment Plan Need for Continued Stay: Remain at risks for inpatient hospitalization, Severe depression anxiety, Discharge may exacerbated symptoms, Severe functional impairment Progress Toward Problem(s) and Goals/Treatment Plan: Milieu/structure/supportive therapy SW consultation for discharge plan and social issues Med management Patient reported being on Seroquel 400 mg twice a day and 200 mg at the nighttime for mood stabilization Trazodone for depression and insomnia [id number] am and 300mg hs resumed Neurontin 300 mg three times a day off label for anxiety/mood stabilization Multivitamins, thiamine, folic acid Ativan scheduled 2 mg 4 times a day to avoid alcohol withdrawal symptoms Ativan as needed was discontinued today Vistaril as needed for anxiety We will monitor vital signs Family involvement Follow up on labs Will monitor closely Pt was educated about risk/benefits and alternatives of medications, coping strategies (safety plan, suicide prevention), relapse prevention, importance of follow up with psychiatrist and therapist, stay away from drugs/alcohol/smoking Estimated Date of D/C: 03/28/19
[2019-03-23] MEDS: Alum-Mag Hydrox-Simethicone Susp (30 mL) PO PRN (21:22)
[2019-03-24] MEDS: Pantoprazole 40 mg EC Tab PO SCH ×2 (05:43→16:48)
[2019-03-24] MEDS: Levothyroxine 25 MCG TAB PO SCH (05:43)
[2019-03-24 07:31] VITALS: RESP 20
[2019-03-24] MEDS: Multivitamin Therapeutic Tab PO SCH (08:36)
[2019-03-24] MEDS: Alum-Mag Hydrox-Simethicone Susp (30 mL) PO PRN ×2 (10:46→19:41)
--- NOTE | 2019-03-24 15:15 | PCM.PYCHPN ---
Psychiatric Progress Note - Psychiatric Progress Note Patient seen today, length of contact: 30min Patient Chief Complaint: "I want to .." Problems Identified/Issues Discussed: Alcohol addiction, complications, importance to go to inpatient rehab, medication compliance, suicide prevention. Medical Problems: See HPI Diagnostic Results: 03/21/19 08:10 03/21/19 08:10 Lab Results 03/22/19 07:30: RPR Nonreactive 03/22/19 07:30: Triglycerides 435 H, Cholesterol 201 H, LDL Cholesterol Direct 97, HDL Cholesterol 46 03/22/19 07:30: Free T4 0.60 L, TSH 3rd Generation 5.26 H 03/21/19 08:10: Alcohol, Quantitative 285 H 03/21/19 08:10: Salicylates < 1 L, Acetaminophen < 10.0 L 03/21/19 08:10: Sodium 145, Potassium 4.2, Chloride 108 H, Carbon Dioxide 22, Anion Gap 19, BUN 13, Creatinine 0.9, Est GFR ( Amer) > 60, Est GFR (Non- Af Amer) > 60, Random Glucose 97, Calcium 8.6, Magnesium 2.0, Total Bilirubin 0.4, AST 169 H D, ALT 177 H, Alkaline Phosphatase 78, Total Protein 7.7, Albumin 4.5, Globulin 3.2, Albumin/Globulin Ratio 1.4 03/21/19 08:10: WBC 6.9, RBC 4.34, Hgb 11.7 L, Hct 37.5 L, MCV 86.4, MCH 27.0, MCHC 31.2, RDW 19.5 H, Plt Count 230, MPV 9.8, Neut % (Auto) 45.9 L, Lymph % (Auto) 45.1 H, [place] % (Auto) 4.9, Eos % (Auto) 3.2, Baso % (Auto) 0.9, Lymph # (Auto) 3.1, [place] # (Auto) 0.3, Eos # (Auto) 0.2, Baso # (Auto) 0.06, Absolute Neuts (auto) 3.16 03/21/19 07:31: Urine Opiates Screen Negative, Urine Methadone Screen Negative, Ur Barbiturates Screen Negative, Ur Phencyclidine Scrn Negative, Ur Amphetamines Screen Negative, U Benzodiazepines Scrn Positive H, U Oth Cocaine Metabols Negative, U Cannabinoids Screen Negative 03/21/19 07:31: Urine Color Yellow, Urine Appearance Clear, Urine pH 5.5, Ur Specific [place] >= 1.030, Urine Protein Negative, Urine Glucose (UA) Negative, Urine Ketones Negative, Urine Blood Negative, Urine Nitrate Negative, Urine Bilirubin Negative, Urine Urobilinogen 0.2, Ur Leukocyte Esterase Negative Vital Signs Temp Pulse Resp BP Pulse Ox 03/23/19 07:12 97.5 F L 69 20 119/63 03/22/19 16:05 81 130/80 03/22/19 07:16 97.9 F 70 20 166/77 H 03/21/19 15:45 94 H 131/83 03/21/19 11:30 90 18 98 03/21/19 11:00 98.1 F 92 H 18 130/89 98 03/21/19 08:22 98.4 F 99 H 20 133/85 93 L 03/21/19 07:18 98.9 F 103 H 18 124/88 95 Temp Pulse Resp BP Pulse Ox 97.7 F 68 20 115/56 L 98 03/24/19 07:29 03/24/19 07:29 03/24/19 07:29 03/24/19 07:29 03/21/19 11:30 DSM 5 Symptoms Update: shortly pt is a 28 year old male, whose past medical history includes polysubstance abuse and alcohol abuse, h/o substance induced mood disorder, self reported h/o ?ADHD, possible bipolar disorder (but it is not sure because pt never been sober for significant amount of time in order to be diagnosed correctly), multiple ED/medical admissions, for the past 3months pt had 15 ED/med admissions. pt has h/o chronic noncompliance with f/u appts and medications, chronic resistance to go to inpatient rehab, pt also has h/o involu ntary commitment at [facility] and h/o impulsive/suicidal behavior in the past (all of suicidal gestures were under the influence of alcohol or benzodiazepines), most recently pt was admitted to to [facility] December 22-2018, history of [facility] medical site admission 11/25/18 after pt cut his left forearm which required reconstructive surgery as well as suturing, pt also was admitted to inpatient rehab about a month ago at [place] and [facility] in [place]. Patient requires further evaluation stabilization for depressive symptoms, possible suicidal ideation which patient expressed in the emergency room. Patient was seen today at the treatment team meeting room with AMARIS. Patient reported feeling like a "sh...t", pt reported that he had difficulty to fall asleep and to stay asleep, "I am withdrawing badly", at the same time pt's vitals WNL, fine UE tremor. pt reported to feel anxious and "withdrawing", "I want to ". Patient still feels "hopeless, helpless, depressed" patient also reported to have passive wish to be . Denied psychotic symptoms, but vivid dreams. As per staff patient is self isolating, not participating in unit activities. Patient complains of anxiety, I asked Vistaril to be resolved. So far patient tolerates medications well, no side effects observed or reported, aims 0, no EPS. Impression: DSM 5 Diagnosis: r/o MDD r/o bipolar spectrum Substance-induced mood disorder Alcohol use disorder severe dependence Benzodiazepines addiction We will monitor for alcohol withdrawal symptoms, so far under control. Medication Change: Yes (neurontin increased, trazodone increased) Medical Record Reviewed: Yes Mental Status Examination - Cognitive Function Orientation: Person, Place, Situation, Time Memory: Intact Attention: Poor Concentration: Poor Association: WNL Fund of Knowledge: WNL - Mood Mood: Depressed, Anxious - Affect Affect: Flat - Formal Thought Process Formal Thought Process: No Impairment - Suicidal Ideation Suicidal Ideation: Yes Plan: wish to be - Homicidal Ideation Homicidal Ideation: No Goal/Treatment Plan - Goal/Treatment Plan Need for Continued Stay: Remain at risks for inpatient hospitalization, Severe depression anxiety, Discharge may exacerbated symptoms, Severe functional impairment Progress Toward Problem(s) and Goals/Treatment Plan: Milieu/structure/supportive therapy AMARIS consultation for discharge plan and social issues Med management Patient reported being on Seroquel 100 mg twice a day and 200 mg at the nig httime for mood stabilization Trazodone 100mg hs for depression and insomnia [id number] am and 300mg hs resumed Neurontin 400 mg three times a day off label for anxiety/mood stabilization Multivitamins, thiamine, folic acid Ativan scheduled 2 mg 4 times a day to avoid alcohol withdrawal symptoms Ativan as needed was discontinued today Vistaril as needed for anxiety We will monitor vital signs Family involvement Follow up on labs Will monitor closely Pt was educated about risk/benefits and alternatives of medications, coping strategies (safety plan, suicide prevention), relapse prevention, importance of follow up with psychiatrist and therapist, stay away from drugs/alcohol/smoking Estimated Date of D/C: 03/28/19
--- NOTE | 2019-03-24 19:24 | CP.PCM.PN ---
<Leticia Peña - Last Filed: 03/24/19 19:27> Subjective - Date & Time of Evaluation Date of Evaluation: 03/24/19 Time of Evaluation: 19:21 - Subjective Subjective: House Doc Call for nausea/vomiting Patient has PMH of alcohol abuse, depression/anxiety, gastritis and is admitted to psych for depression. House doc was paged for nausea and vomiting. Patient was seen and examined at bedside. He reports his nausea has improved and thinks it is secondary to withdrawal. He has mild epigastric pain, but is resting comfortably in bed. Patient reports this has happened in the past and states that carafate has helped him in the past. He denies chest pain, shortness of breath, diarrhea, fever/chills, dysuria/hematuria or poor appetite. Patient reports some abdominal fullness. Objective - Vital Signs/Intake and Output Vital Signs (last 24 hours): Temp Pulse Resp BP Pulse Ox 97.7 F 99 H 20 126/73 98 03/24/19 07:29 03/24/19 16:01 03/24/19 07:29 03/24/19 16:01 03/21/19 11:30 - Medications Medications: Current Medications Al Hydrox/Mg Hydrox/Simethicone (Maalox Plus 30 Ml) 30 ml PO TID PRN PRN Reason: Upset Stomach Last Admin: 03/24/19 10:46 Dose: 30 ml Folic Acid (Folic Acid) 1 mg PO DAILY [facility] Last Admin: 03/24/19 08:37 Dose: 1 mg Gabapentin (Neurontin) 400 mg PO TID [facility]; Protocol Last Admin: 03/24/19 17:34 Dose: 400 mg Hydroxyzine Pamoate (Vistaril) 50 mg PO QID PRN; Protocol PRN Reason: Anxiety Last Admin: 03/24/19 10:46 Dose: 50 mg Levothyroxine Sodium (Synthroid) 25 mcg PO 0600 [facility] Last Admin: 03/24/19 05:43 Dose: 25 mcg Lorazepam (Ativan) 2 mg PO QID [facility]; Protocol Last Admin: 03/24/19 17:34 Dose: 2 mg Magnesium Hydroxide (Milk Of Magnesia) 30 ml PO DAILY PRN PRN Reason: Constipation Multivitamins (Thera Tab) 1 tab PO 0800 [facility] Last Admin: 03/24/19 08:36 Dose: 1 tab Nicotine (Nicoderm Cq) 1 patch TD DAILY [facility] Last Admin: 03/24/19 08:36 Dose: 1 patch Ondansetron HCl (Zofran Tab) 4 mg PO Q8H PRN PRN Reason: Nausea/Vomiting Last Admin: 03/24/19 16:38 Dose: 4 mg Pantoprazole Sodium (Protonix Ec Tab) 40 mg PO 0600,1600 [facility] Last Admin: 03/24/19 16:48 Dose: 40 mg Quetiapine Fumarate (Seroquel) 100 mg PO BID [facility]; Protocol Last Admin: 03/24/19 17:33 Dose: 100 mg Quetiapine Fumarate (Seroquel) 200 mg PO HS [facility]; Protocol Last Admin: 03/23/19 21:21 Dose: 200 mg Sodium Chloride ([place]) 0 ml NS QID PRN PRN Reason: Nasal congestion Last Admin: 03/24/19 10:45 Dose: 3 spr Thiamine HCl (Vitamin B1 Tab) 100 mg PO DAILY [facility] Last Admin: 03/24/19 08:37 Dose: 100 mg Trazodone HCl (Desyrel) 100 mg PO HS [facility] Ziprasidone (Geodon Cap) 20 mg PO Q6H PRN; Protocol PRN Reason: Agitation Ziprasidone (Geodon Inj) 20 mg IM Q6H PRN; Protocol PRN Reason: Agitation - Labs Labs: 03/21/19 08:10 03/21/19 08:10 - Constitutional Appears: No Acute Distress - Head Exam Head Exam: ATRAUMATIC, NORMAL INSPECTION, NORMOCEPHALIC - Eye Exam Eye Exam: Normal appearance, PERRL Pupil Exam: NORMAL ACCOMODATION, PERRL - ENT Exam ENT Exam: Mucous Membranes Dry - Neck Exam Neck Exam: Normal Inspection - Respiratory Exam Respiratory Exam: Clear to Ausculation Bilateral, NORMAL BREATHING PATTERN. absent: Rales, Rhonchi, Wheezes - Cardiovascular Exam Cardiovascular Exam: REGULAR RHYTHM, +S1, +S2. absent: Gallop, Rubs, Murmur - GI/Abdominal Exam GI & Abdominal Exam: Distended, Soft, Tenderness (mild epigastric ), Normal Bowel Sounds. absent: Guarding, Rigid - Extremities Exam Extremities Exam: Normal Inspection. absent: Calf Tenderness, Pedal Edema - Neurological Exam Neurological Exam: Alert, Awake, CN II-XII Intact, Oriented x3 - Psychiatric Exam Psychiatric exam: Normal Affect, Normal Mood - Skin Skin Exam: Dry, Warm Assessment and Plan - Assessment and Plan (Free Text) Assessment: 1. Nausea/vomiting- improved - will order one dose of Reglan for abdominal distention and fullness- avoid further doses because patient is on anti-psychotics - Carafate ordered - Encourage increased fluid intake Case seen, discussed and reviewed with Dr. Axel Peña PGY3 <Elijah Reyna - Last Filed: 03/24/19 19:29> Objective - Vital Signs/Intake and Output Vital Signs (last 24 hours): Temp Pulse Resp BP Pulse Ox 97.7 F 99 H 20 126/73 98 03/24/19 07:29 03/24/19 16:01 03/24/19 07:29 03/24/19 16:01 03/21/19 11:30 - Medications Medications: Current Medications Al Hydrox/Mg Hydrox/Simethicone (Maalox Plus 30 Ml) 30 ml PO TID PRN PRN Reason: Upset Stomach Last Admin: 03/24/19 10:46 Dose: 30 ml Folic Acid (Folic Acid) 1 mg PO DAILY [facility] Last Admin: 03/24/19 08:37 Dose: 1 mg Gabapentin (Neurontin) 400 mg PO TID [facility]; Protocol Last Admin: 03/24/19 17:34 Dose: 400 mg Hydroxyzine Pamoate (Vistaril) 50 mg PO QID PRN; Protocol PRN Reason: Anxiety Last Admin: 03/24/19 10:46 Dose: 50 mg Levothyroxine Sodium (Synthroid) 25 mcg PO 0600 [facility] Last Admin: 03/24/19 05:43 Dose: 25 mcg Lorazepam (Ativan) 2 mg PO QID [facility]; Protocol Last Admin: 03/24/19 17:34 Dose: 2 mg Magnesium Hydroxide (Milk Of Magnesia) 30 ml PO DAILY PRN PRN Reason: Constipation Multivitamins (Thera Tab) 1 tab PO 0800 [facility] Last Admin: 03/24/19 08:36 Dose: 1 tab Nicotine (Nicoderm Cq) 1 patch TD DAILY [facility] Last Admin: 03/24/19 08:36 Dose: 1 patch Ondansetron HCl (Zofran Tab) 4 mg PO Q8H PRN PRN Reason: Nausea/Vomiting Last Admin: 03/24/19 16:38 Dose: 4 mg Pantoprazole Sodium (Protonix Ec Tab) 40 mg PO 0600,1600 [facility] Last Admin: 03/24/19 16:48 Dose: 40 mg Quetiapine Fumarate (Seroquel) 100 mg PO BID [facility]; Protocol Last Admin: 03/24/19 17:33 Dose: 100 mg Quetiapine Fumarate (Seroquel) 200 mg PO HS [facility]; Protocol Last Admin: 03/23/19 21:21 Dose: 200 mg Sodium Chloride ([place]) 0 ml NS QID PRN PRN Reason: Nasal congestion Last Admin: 03/24/19 10:45 Dose: 3 spr Sucralfate (Carafate Oral Susp) 1 gm PO 0600,1600 [facility] Thiamine HCl (Vitamin B1 Tab) 100 mg PO DAILY [facility] Last Admin: 03/24/19 08:37 Dose: 100 mg Trazodone HCl (Desyrel) 100 mg PO HS [facility] Ziprasidone (Geodon Cap) 20 mg PO Q6H PRN; Protocol PRN Reason: Agitation Ziprasidone (Geodon Inj) 20 mg IM Q6H PRN; Protocol PRN Reason: Agitation - Labs Labs: 03/21/19 08:10 03/21/19 08:10 Attending/Attestation - Attestation I have personally seen and examined this patient.: No I have fully participated in the care of the patient.: No I have reviewed all pertinent clinical information, including history, physical exam and plan: No
[2019-03-25] MEDS: Sucralfate 1 gm/10 ml Oral Susp UD PO SCH ×2 (05:32→15:56)
[2019-03-25] MEDS: Pantoprazole 40 mg EC Tab PO SCH ×2 (05:32→15:56)
[2019-03-25] MEDS: Levothyroxine 25 MCG TAB PO SCH (05:32)
[2019-03-25] MEDS: Multivitamin Therapeutic Tab PO SCH (08:26)
--- NOTE | 2019-03-25 14:52 | PCM.PYCHPN ---
Psychiatric Progress Note - Psychiatric Progress Note Patient seen today, length of contact: 30min Patient Chief Complaint: "I do not feel good.." Problems Identified/Issues Discussed: Alcohol addiction, complications, importance to go to inpatient rehab, medication compliance, suicide prevention. Medical Problems: See HPI Diagnostic Results: 03/21/19 08:10 03/21/19 08:10 Lab Results 03/22/19 07:30: RPR Nonreactive 03/22/19 07:30: Triglycerides 435 H, Cholesterol 201 H, LDL Cholesterol Direct 97, HDL Cholesterol 46 03/22/19 07:30: Free T4 0.60 L, TSH 3rd Generation 5.26 H 03/21/19 08:10: Alcohol, Quantitative 285 H 03/21/19 08:10: Salicylates < 1 L, Acetaminophen < 10.0 L 03/21/19 08:10: Sodium 145, Potassium 4.2, Chloride 108 H, Carbon Dioxide 22, Anion Gap 19, BUN 13, Creatinine 0.9, Est GFR ( Amer) > 60, Est GFR (Non- Af Amer) > 60, Random Glucose 97, Calcium 8.6, Magnesium 2.0, Total Bilirubin 0.4, AST 169 H D, ALT 177 H, Alkaline Phosphatase 78, Total Protein 7.7, Albumin 4.5, Globulin 3.2, Albumin/Globulin Ratio 1.4 03/21/19 08:10: WBC 6.9, RBC 4.34, Hgb 11.7 L, Hct 37.5 L, MCV 86.4, MCH 27.0, MCHC 31.2, RDW 19.5 H, Plt Count 230, MPV 9.8, Neut % (Auto) 45.9 L, Lymph % (Auto) 45.1 H, [place] % (Auto) 4.9, Eos % (Auto) 3.2, Baso % (Auto) 0.9, Lymph # (Auto) 3.1, [place] # (Auto) 0.3, Eos # (Auto) 0.2, Baso # (Auto) 0.06, Absolute Neuts (auto) 3.16 03/21/19 07:31: Urine Opiates Screen Negative, Urine Methadone Screen Negative, Ur Barbiturates Screen Negative, Ur Phencyclidine Scrn Negative, Ur Amphetamines Screen Negative, U Benzodiazepines Scrn Positive H, U Oth Cocaine Metabols Negative, U Cannabinoids Screen Negative 03/21/19 07:31: Urine Color Yellow, Urine Appearance Clear, Urine pH 5.5, Ur Specific [place] >= 1.030, Urine Protein Negative, Urine Glucose (UA) Negative, Urine Ketones Negative, Urine Blood Negative, Urine Nitrate Negative, Urine Bilirubin Negative, Urine Urobilinogen 0.2, Ur Leukocyte Esterase Negative Vital Signs Temp Pulse Resp BP Pulse Ox 03/23/19 07:12 97.5 F L 69 20 119/63 03/22/19 16:05 81 130/80 03/22/19 07:16 97.9 F 70 20 166/77 H 03/21/19 15:45 94 H 131/83 03/21/19 11:30 90 18 98 03/21/19 11:00 98.1 F 92 H 18 130/89 98 03/21/19 08:22 98.4 F 99 H 20 133/85 93 L 03/21/19 07:18 98.9 F 103 H 18 124/88 95 Temp Pulse Resp BP Pulse Ox 97.7 F 68 20 115/56 L 98 03/24/19 07:29 03/24/19 07:29 03/24/19 07:29 03/24/19 07:29 03/21/19 11:30 Temp Pulse Resp BP Pulse Ox 97.7 F 99 H 20 126/73 98 03/24/19 07:29 03/24/19 16:01 03/24/19 07:29 03/24/19 16:01 03/21/19 11:30 DSM 5 Symptoms Update: shortly pt is a 28 year old male, whose past medical history includes polysubstance abuse and alcohol abuse, h/o substance induced mood disorder, self reported h/o ?ADHD, possible bipolar disorder (but it is not sure because pt never been sober for significant amount of time in order to be diagnosed correctly), multiple ED/medical admissions, for the past 3months pt had 15 ED/med admissions. pt has h/o chronic noncompliance with f/u appts and medications, chronic resistance to go to inpatient rehab, pt also has h/o involuntary commitment at [facility] and h/o impulsive/suicidal behavior in the past (all of suicidal gestures were under the influence of alcohol or agustina odiazepines), most recently pt was admitted to to [facility] December 22-2018, history of [facility] medical site admission 11/25/18 after pt cut his left forearm which required reconstructive surgery as well as suturing, pt also was admitted to inpatient rehab about a month ago at [place] and [facility] in [place]. Patient requires further evaluation stabilization for depressive symptoms, possible suicidal ideation which patient expressed in the emergency room. Patient was seen today in his room, pt presented to be ill, pt said that he had vomited last night, no vomiting today. pt reported that he feels depressed, hopeless, pt was fixated on ativan, this telegraphic typewriter operator educated pt about the plan to wean Ativan over this weekend. pt reported feeling "very bad, not good at all" pt reported that he had difficulty to fall asleep and to stay asleep, "I am withdrawing badly", at the same time pt's vitals WNL, fine UE tremor. pt reported to feel anxious and "withdrawing", "I want to ". patient reported to have passive wish to be , no active plan or intent. Denied psychotic symptoms, but vivid dreams. As per staff patient is self isolating, not participating in unit activities. Patient complains of anxiety, Vistaril resumed So far patient tolerates medications well, no side effects observed or reported, aims 0, no EPS. Impression: DSM 5 Diagnosis: r/o MDD r/o bipolar spectrum Substance-induced mood disorder Alcohol use disorder severe dependence Benzodiazepines addiction We will monitor for alcohol withdrawal symptoms, so far under control. Medication Change: Yes (ativan decreased, trazodone increased) Medical Record Reviewed: Yes Consults ordered or reviewed: Medical consult appreciated Mental Status Examination - Cognitive Function Orientation: Person, Place, Situation, Time Memory: Intact Attention: Poor Concentration: Poor Association: WNL Fund of Knowledge: WNL - Mood Mood: Depressed, Anxious - Affect Affect: Flat - Formal Thought Process Formal Thought Process: No Impairment - Suicidal Ideation Suicidal Ideation: Yes - Homicidal Ideation Homicidal Ideation: No Goal/Treatment Plan - Goal/Treatment Plan Need for Continued Stay: Remain at risks for inpatient hospitalization, Severe depression anxiety, Discharge may exacerbated symptoms, Severe functional impairment Progress Toward Problem(s) and Goals/Treatment Plan: Milieu/structure/supportive therapy SW consultation for discharge plan and social issues Med management Patient reported being on Seroquel 200 mg at 4pm and 200 mg at the nighttime for mood stabilization Trazodone 150mg hs for depression and insomnia Neurontin 400 mg three times a day off label for anxiety/mood stabilization Multivitamins, thiamine, folic acid Ativan scheduled 2 mg 3times a day to avoid alcohol withdrawal symptoms Ativan as needed was discontinued today Vistaril as needed for anxiety We will monitor vital signs Family involvement Follow up on labs Will monitor closely Pt was educated about risk/benefits and alternatives of medications, coping strategies (safety plan, suicide prevention), relapse prevention, importance of follow up with psychiatrist and therapist, stay away from drugs/alcohol/smoking Estimated Date of D/C: 03/28/19
[2019-03-26] MEDS: Pantoprazole 40 mg EC Tab PO SCH ×2 (05:53→16:04)
[2019-03-26] MEDS: Sucralfate 1 gm/10 ml Oral Susp UD PO SCH ×2 (05:53→16:03)
[2019-03-26] MEDS: Levothyroxine 25 MCG TAB PO SCH (05:53)
[2019-03-26] MEDS: Multivitamin Therapeutic Tab PO SCH (08:06)
--- NOTE | 2019-03-26 08:54 | PCM.PYCHPN ---
Psychiatric Progress Note - Psychiatric Progress Note Patient seen today, length of contact: 30min Problems Identified/Issues Discussed: I reviewed assessment and recent notes. I am familiar with this patient from interviews during prior presentations to ER, medical floor and psychiatric unit. HE was a former patient at [facility] until he was referred to higher level of care due to multiple relapses. Patient has a lot of difficulty abstaining from alcohol and this has led to multiple recurrent social, economic and relationship issues in this life. Patient's overall functioning is declining since he is clearly addicted to benzos and has started using heroin {though not on a regular basis yet}. Patient remains alert, well-oriented and pleasant during my visits. He remembers me from prior interactions and range is full. He can communicate needs well. He is still feeling depressed and anxious since admission. As usual, he complains that he is not receiving enough benzos on the unit to cover his withdrawal symptoms and anxiety. Denies perceptual disturbance or any new pain or discomfort. Though process is coherent without evidence of perceptual disturbance. Staff notes indicate that he continues to self-isolate with minimal participation in unit activities. He seems to be improving more slowly during this round. Diagnostic Results: r/o MDD r/o bipolar spectrum Substance-induced mood disorder Alcohol use disorder severe dependence Benzodiazepines addiction We will monitor for alcohol withdrawal symptoms, so far under control. Medication Change: No ( ) Medical Record Reviewed: Yes Mental Status Examination - Cognitive Function Orientation: Person, Place, Situation, Time Memory: Intact Attention: Poor Concentration: Poor Association: WNL Fund of Knowledge: WNL - Mood Mood: Depressed, Anxious - Affect Affect: Flat - Formal Thought Process Formal Thought Process: No Impairment - Suicidal Ideation Suicidal Ideation: Yes - Homicidal Ideation Homicidal Ideation: No Goal/Treatment Plan - Goal/Treatment Plan Need for Continued Stay: Remain at risks for inpatient hospitalization, Severe depression anxiety, Discharge may exacerbated symptoms, Severe functional impairment Progress Toward Problem(s) and Goals/Treatment Plan: * c/w current tx and plan * Taper ativan 2 mg po bid + 2 mg po HS as tolerated over the weekend * No new weekend lab results noted thus far * Vitals reviewed and noted below: Selected Entries 03/24/19 03/24/19 03/25/19 07:29 16:01 15:57 Temperature 97.7 F Pulse Rate 68 99 H 123 H Respiratory 20 Rate Blood Pressure 115/56 L 126/73 132/91 H Estimated Date of D/C: 03/28/19
[2019-03-27] MEDS: Levothyroxine 25 MCG TAB PO SCH (06:04)
[2019-03-27] MEDS: Sucralfate 1 gm/10 ml Oral Susp UD PO SCH ×2 (06:04→15:57)
[2019-03-27] MEDS: Pantoprazole 40 mg EC Tab PO SCH ×2 (06:04→15:57)
[2019-03-27] MEDS: Multivitamin Therapeutic Tab PO SCH (08:02)
--- NOTE | 2019-03-27 08:55 | PCM.PYCHPN ---
Psychiatric Progress Note - Psychiatric Progress Note Patient seen today, length of contact: 30min Problems Identified/Issues Discussed: I have reviewed assessment and recent notes. I am familiar with this patient from interviews during prior presentations to ER, medical floor and psychiatric unit. He was a former patient at [facility] until he was referred to higher level of care due to numerous relapses on alcohol and overuse of benzos. Patient has a lot of difficulty abstaining from alcohol and this has led to multiple recurrent social, economic and relationship issues in this life. Patient's overall functioning and dependency issues continue to decline due to increasing use of heroin {though not on a regular basis yet}. Patient remains alert, well-oriented and pleasant during my visits. He remembers me from prior interactions and range is full. He can communicate needs well. Patient appears better groomed and brighter today. Staff note that he had a good visit with his boyfriend yesterday. Patient reports that he is depressed and anxious, mostly unchanged since admission. As usual, he complains that he is not receiving enough benzos on the unit to cover his withdrawal symptoms and anxiety. He has been naqvi and snaps at staff sometimes {his breakfast tray was missing yesterday} however he is not aggressive or threatening. Patient continues to deny perceptual disturbance or any new pain or discomfort. Though process is coherent without evidence of perceptual disturbance. Staff notes indicate that he continues to self-isolate with minimal participation in unit activities. He seems to be improving more slowly during this round. Diagnostic Results: r/o MDD r/o bipolar spectrum Substance-induced mood disorder Alcohol use disorder severe dependence Benzodiazepines addiction We will monitor for alcohol withdrawal symptoms, so far under control. Medication Change: Yes (decrease ativan) Medical Record Reviewed: Yes Mental Status Examination - Cognitive Function Orientation: Person, Place, Situation, Time Memory: Intact Attention: WNL Concentration: WNL Association: WNL Fund of Knowledge: WNL - Mood Mood: Depressed, Anxious - Affect Affect: Flat, Other (naqvi) - Speech Speech: Appropriate - Formal Thought Process Formal Thought Process: No Impairment - Suicidal Ideation Suicidal Ideation: No - Homicidal Ideation Homicidal Ideation: No Goal/Treatment Plan - Goal/Treatment Plan Need for Continued Stay: Remain at risks for inpatient hospitalization, Severe depression anxiety, Discharge may exacerbated symptoms, Severe functional impairment Progress Toward Problem(s) and Goals/Treatment Plan: * c/w current tx and plan * Decreased ativan to 1 mg po bid and HS by 03/28/19, to c/w taper as tolerated * No new weekend lab results noted thus far; requested LFTs to be drawn to ensure liver enzymes continue to trend downwards * Vitals reviewed and noted below: 03/24/19 03/24/19 03/25/19 07:29 16:01 15:57 Temperature 97.7 F Pulse Rate 68 99 H 123 H Respiratory 20 Rate Blood Pressure 115/56 L 126/73 132/91 H 03/26/19 03/26/19 07:00 15:58 Temperature 97.6 F Pulse Rate 81 115 H Respiratory 20 Rate Blood Pressure 112/72 146/79 Estimated Date of D/C: 03/28/19
[2019-03-27 10:51] LABS: ALB/GLOB RATIO 1.5 (1.1-1.8); ALBUMIN 4.3 g/dL (3.0-4.8); ALT/SGPT 173 U/L (7-56); AST/SGOT 95 U/L (17-59); BLOOD UREA NITROGEN 17 mg/dL (7-21); CALCIUM 9.2 mg/dL (8.4-10.5); GFR NON-AFRICAN AMERICAN > 60
[2019-03-27] MEDS: Alum-Mag Hydrox-Simethicone Susp (30 mL) PO PRN (21:03)
[2019-03-28] MEDS: Levothyroxine 25 MCG TAB PO SCH (06:03)
[2019-03-28] MEDS: Pantoprazole 40 mg EC Tab PO SCH ×2 (06:03→16:37)
[2019-03-28] MEDS: Sucralfate 1 gm/10 ml Oral Susp UD PO SCH ×2 (06:03→16:37)
[2019-03-28] MEDS: Multivitamin Therapeutic Tab PO SCH (09:16)
[2019-03-28] MEDS: Alum-Mag Hydrox-Simethicone Susp (30 mL) PO PRN (14:12)
--- NOTE | 2019-03-28 14:30 | PCM.PYCHPN ---
Psychiatric Progress Note - Psychiatric Progress Note Patient seen today, length of contact: 30min Patient Chief Complaint: "I am weaned off from ativan way too fast..." Problems Identified/Issues Discussed: Alcohol addiction, complications, importance to go to inpatient rehab, medication compliance, suicide prevention. Medical Problems: See HPI Diagnostic Results: 03/21/19 08:10 03/21/19 08:10 Lab Results 03/22/19 07:30: RPR Nonreactive 03/22/19 07:30: Triglycerides 435 H, Cholesterol 201 H, LDL Cholesterol Direct 97, HDL Cholesterol 46 03/22/19 07:30: Free T4 0.60 L, TSH 3rd Generation 5.26 H 03/21/19 08:10: Alcohol, Quantitative 285 H 03/21/19 08:10: Salicylates < 1 L, Acetaminophen < 10.0 L 03/21/19 08:10: Sodium 145, Potassium 4.2, Chloride 108 H, Carbon Dioxide 22, Anion Gap 19, BUN 13, Creatinine 0.9, Est GFR ( Amer) > 60, Est GFR (Non- Af Amer) > 60, Random Glucose 97, Calcium 8.6, Magnesium 2.0, Total Bilirubin 0.4, AST 169 H D, ALT 177 H, Alkaline Phosphatase 78, Total Protein 7.7, Albumin 4.5, Globulin 3.2, Albumin/Globulin Ratio 1.4 03/21/19 08:10: WBC 6.9, RBC 4.34, Hgb 11.7 L, Hct 37.5 L, MCV 86.4, MCH 27.0, M CHC 31.2, RDW 19.5 H, Plt Count 230, MPV 9.8, Neut % (Auto) 45.9 L, Lymph % (Auto) 45.1 H, [place] % (Auto) 4.9, Eos % (Auto) 3.2, Baso % (Auto) 0.9, Lymph # (Auto) 3.1, [place] # (Auto) 0.3, Eos # (Auto) 0.2, Baso # (Auto) 0.06, Absolute Neuts (auto) 3.16 03/21/19 07:31: Urine Opiates Screen Negative, Urine Methadone Screen Negative, Ur Barbiturates Screen Negative, Ur Phencyclidine Scrn Negative, Ur Amphetamines Screen Negative, U Benzodiazepines Scrn Positive H, U Oth Cocaine Metabols Negative, U Cannabinoids Screen Negative 03/21/19 07:31: Urine Color Yellow, Urine Appearance Clear, Urine pH 5.5, Ur Specific [place] >= 1.030, Urine Protein Negative, Urine Glucose (UA) Negative, Urine Ketones Negative, Urine Blood Negative, Urine Nitrate Negative, Urine Bilirubin Negative, Urine Urobilinogen 0.2, Ur Leukocyte Esterase Negative Vital Signs Temp Pulse Resp BP Pulse Ox 03/23/19 07:12 97.5 F L 69 20 119/63 03/22/19 16:05 81 130/80 03/22/19 07:16 97.9 F 70 20 166/77 H 03/21/19 15:45 94 H 131/83 03/21/19 11:30 90 18 98 03/21/19 11:00 98.1 F 92 H 18 130/89 98 03/21/19 08:22 98.4 F 99 H 20 133/85 93 L 03/21/19 07:18 98.9 F 103 H 18 124/88 95 Temp Pulse Resp BP Pulse Ox 97.7 F 68 20 115/56 L 98 03/24/19 07:29 03/24/19 07:29 03/24/19 07:29 03/24/19 07:29 03/21/19 11:30 Temp Pulse Resp BP Pulse Ox 97.7 F 99 H 20 126/73 98 03/24/19 07:29 03/24/19 16:01 03/24/19 07:29 03/24/19 16:01 03/21/19 11:30 Temp Pulse Resp BP Pulse Ox 97.9 F 96 H 20 131/79 98 03/28/19 07:10 03/28/19 07:10 03/28/19 07:10 03/28/19 07:10 03/21/19 11:30 DSM 5 Symptoms Update: shortly pt is a 28 year old male, whose past medical history includes polysubstance abuse and alcohol abuse, h/o substance induced mood disorder, self reported h/o ?ADHD, possible bipolar disorder (but it is not sure because pt never been sober for significant amount of time in order to be diagnosed correctly), multiple ED/medical admissions, for the past 3months pt had 15 ED/med admissions. pt has h/o chronic noncompliance with f/u appts and medications, chronic resistance to go to inpatient rehab, pt also has h/o involuntary commitment at [facility] and h/o impulsive/suicidal behavior in the past (all of suicidal gestures were under the influence of alcohol or benzodiazepines), most recently pt was admitted to to [facility] [place] December 22-2018, history of [facility] medical site admission 11/25/18 after pt cut his left forearm which required reconstructive surgery as well as suturing, pt also was admitted to inpatient rehab about a month ago at [place] and [facility] in [place]. Patient requires further evaluation stabilization for depressive symptoms, possible suicidal ideation which patient expressed in the emergency room. Patient was seen today, patient presented to be irritable, annoyed, was giving this movie writer attitude, patient has very poor insight into his alco hol/benzodiazepines addiction. Patient has self-reported "withdrawals" and he feels that this movie writer is decreasing Ativan "too fast". Patient was attacking this movie writer with the statement "why bother? You do not believe in me, you do not believe that I am going to do well!" This movie writer explained it is hard to expect positive result from the same discharge plan, which did not work in the past. Briefly, patient does not want to be referred to inpatient rehab, patient wants to go to outpatient substance abuse program. This movie writer would like to emphasize the fact that this plan failed on multiple occasions in the past. Patient still convinced that she can stop drinking alcohol and using peter zodiazepines but at the same time patient said that he has some Klonopin at home and he will be using it in case if he needs to. Patient was advised not to take any medications which was not prescribed to him. Questionable understanding. Patient reported that he had difficulties to fall asleep and to stay asleep, the same time patient reported that he is catching up with sleep by taking frequent naps during the day. At present moment patient is more irritable and depressed side, patient reported to have passive wish to be , no active plan or intent. As per staff patient is self isolating, not participating in unit activities. So far patient tolerates medications well, no side effects observed or reported, aims 0, no EPS. Impression: DSM 5 Diagnosis: r/o MDD r/o bipolar spectrum Substance-induced mood disorder Alcohol use disorder severe dependence Benzodiazepines addiction We will monitor for alcohol withdrawal symptoms, so far under control. Medication Change: Yes (trazodone increased) Medical Record Reviewed: Yes Consults ordered or reviewed: Medical consult appreciated Mental Status Examination - Cognitive Function Orientation: Person, Place, Situation, Time Memory: Intact Attention: WNL Concentration: WNL Association: WNL Fund of Knowledge: WNL - Mood Mood: Depressed, Anxious - Affect Affect: Flat, Other (naqvi) - Speech Speech: Appropriate - Formal Thought Process Formal Thought Process: No Impairment - Suicidal Ideation Suicidal Ideation: No - Homicidal Ideation Homicidal Ideation: No Goal/Treatment Plan - Goal/Treatment Plan Need for Continued Stay: Remain at risks for inpatient hospitalization (Along), Severe depression anxiety, Discharge may exacerbated symptoms, Severe functional impairment Progress Toward Problem(s) and Goals/Treatment Plan: Milieu/structure/supportive therapy consultation for discharge plan and social issues Med management Patient reported being on Seroquel 200 mg at 4pm and 200 mg at the nighttime for mood stabilization Trazodone 200mg hs for depression and insomnia Neurontin 400 mg three times a day off label for anxiety/mood stabilization Multivitamins, thiamine, folic acid Ativan scheduled 1 mg 3times a day to avoid alcohol withdrawal symptoms Vistaril as needed for anxiety We will monitor vital signs Family involvement Follow up on labs Will monitor closely Pt was educated about risk/benefits and alternatives of medications, coping strategies (safety plan, suicide prevention), relapse prevention, importance of follow up with psychiatrist and therapist, stay away from drugs/alcohol/smoking Patient Estimated Date of D/C: 03/31/19
[2019-03-29] MEDS: Sucralfate 1 gm/10 ml Oral Susp UD PO SCH (06:49)
[2019-03-29] MEDS: Pantoprazole 40 mg EC Tab PO SCH (06:49)
[2019-03-29] MEDS: Levothyroxine 25 MCG TAB PO SCH (06:49)
[2019-03-29 06:59] VITALS: BP 116/76; PULSE 78; TEMP 97.8
[2019-03-29] MEDS: Multivitamin Therapeutic Tab PO SCH (08:23)
--- NOTE | 2019-03-29 13:44 | PCM.PYCHDC ---
Mental Status Examination - Mental Status Examination Orientation: Person, Place, Situation, Time Memory: Intact Mood: Neutral Affect: Constricted (But reactive, congruent) Speech: Appropriate Attention: WNL Concentration: WNL Association: WNL Fund of Knowledge: WNL Formal Thought Process: No Impairment Description of patient's judgement and insight: Fair insight and to his mental illness but poor insight into his addiction to benzodiazepines and alcohol Psychotic Thoughts and Behaviors: Patient does not present to be psychotic, denied hearing voices, denied seeing things, denied paranoid ideations. Suicidal Ideation: No Current Homicidal Ideation?: No Plan: Patient adamantly denied thoughts of harming himself or others Discharge Plan - Discharge Note Reason for Hospitalization: Patient was admitted for evaluation and stabilization of depressive symptoms, possible suicidal ideation. Psychiatric History (includes Medical, Family, Personal Hx): See HPI Laboratory Data: 03/21/19 08:10 03/27/19 10:20 Lab Results 03/27/19 10:20: Sodium 141, Potassium 4.6, Chloride 109 H, Carbon Dioxide 22, Anion Gap 15, BUN 17, Creatinine 0.9, Est GFR ( Amer) > 60, Est GFR (Non- Af Amer) > 60, Random Glucose 113 H, Calcium 9.2, Total Bilirubin 0.2, AST 95 H D, ALT 173 H, Alkaline Phosphatase 90, Total Protein 7.2, Albumin 4.3, Globulin 2.9, Albumin/Globulin Ratio 1.5 03/22/19 07:30: RPR Nonreactive 03/22/19 07:30: Triglycerides 435 H, Cholesterol 201 H, LDL Cholesterol Direct 97, HDL Cholesterol 46 03/22/19 07:30: Free T4 0.60 L, TSH 3rd Generation 5.26 H 03/21/19 08:10: Alcohol, Quantitative 285 H 03/21/19 08:10: Salicylates < 1 L, Acetaminophen < 10.0 L 03/21/19 08:10: Sodium 145, Potassium 4.2, Chloride 108 H, Carbon Dioxide 22, Anion Gap 19, BUN 13, Creatinine 0.9, Est GFR ( Amer) > 60, Est GFR (Non- Af Amer) > 60, Random Glucose 97, Calcium 8.6, Magnesium 2.0, Total Bilirubin 0.4, AST 169 H D, ALT 177 H, Alkaline Phosphatase 78, Total Protein 7.7, Albumin 4.5, Globulin 3.2, Albumin/Globulin Ratio 1.4 03/21/19 08:10: WBC 6.9, RBC 4.34, Hgb 11.7 L, Hct 37.5 L, MCV 86.4, MCH 27.0, MCHC 31.2, RDW 19.5 H, Plt Count 230, MPV 9.8, Neut % (Auto) 45.9 L, Lymph % (Au to) 45.1 H, [place] % (Auto) 4.9, Eos % (Auto) 3.2, Baso % (Auto) 0.9, Lymph # (Auto) 3.1, Rab[place] # (Auto) 0.3, Eos # (Auto) 0.2, Baso # (Auto) 0.06, Absolute Neuts (auto) 3.16 03/21/19 07:31: Urine Opiates Screen Negative, Urine Methadone Screen Negative, Ur Barbiturates Screen Negative, Ur Phencyclidine Scrn Negative, Ur Amphetamines Screen Negative, U Benzodiazepines Scrn Positive H, U Oth Cocaine Metabols Negative, U Cannabinoids Screen Negative 03/21/19 07:31: Urine Color Yellow, Urine Appearance Clear, Urine pH 5.5, Ur Specific [place] >= 1.030, Urine Protein Negative, Urine Glucose (UA) Negative, Urine Ketones Negative, Urine Blood Negative, Urine Nitrate Negative, Urine Bilirubin Negative, Urine Urobilinogen 0.2, Ur Leukocyte Esterase Negative Vital Signs Temp Pulse Resp BP Pulse Ox 03/29/19 06:58 97.8 F 78 20 116/76 03/28/19 15:53 93 H 147/89 03/28/19 07:10 97.9 F 96 H 20 131/79 03/27/19 15:39 93 H 117/71 03/27/19 07:09 97.4 F L 79 20 114/66 03/26/19 15:58 115 H 146/79 03/26/19 07:00 97.6 F 81 20 112/72 03/25/19 15:57 123 H 132/91 H 03/24/19 16:01 99 H 126/73 03/24/19 07:29 97.7 F 68 20 115/56 L 03/23/19 15:00 90 18 117/78 03/23/19 07:12 97.5 F L 69 20 119/63 03/22/19 16:05 81 130/80 03/22/19 07:16 97.9 F 70 20 166/77 H 03/21/19 15:45 94 H 131/83 03/21/19 11:30 90 18 98 03/21/19 11:00 98.1 F 92 H 18 130/89 98 03/21/19 08:22 98.4 F 99 H 20 133/85 93 L 03/21/19 07:18 98.9 F 103 H 18 124/88 95 Consultations:: List each consultation separately and include: 1. Reason for request. 2. Findings. 3. Follow-up Consultations: Medical consult appreciated Please see notes for multiple information Summary of Hospital Course include:: 1. Description of specific treatment plan utilized for patients during their course of treatmen. 2. Summarize the time- course for resolution of acute symptoms and/or regressed behaviors. 3. Describe issues identified and worked on during hospitalization. 4. Describe medication utilized. 5. Describe medical problems identified and treated. 6. Reassessment of suicide risk Summary of Hospital Course: shortly pt is a 28 year old male, whose past medical history includes polysubstance abuse and alcohol abuse, h/o substance induced mood disorder, self reported h/o ?ADHD, possible bipolar disorder (but it is not sure because pt never been sober for significant amount of time in order to be diagnosed correctly), multiple ED/medical admissions, for the past 3months pt had 15 ED/med admissions. pt has h/o chronic noncompliance with f/u appts and medications, chronic resistance to go to inpatient rehab, pt also has h/o involuntary commitment at [facility] and h/o impulsive/suicidal behavior in the past (all of suicidal gestures were under the influence of alcohol or benzodiazepines), most recently pt was admitted to to [facility] December 22-2018, history of [facility] medical site admission 11/25/18 after pt cut his left forearm which required reconstructive surgery as well as suturing, pt also was admitted to inpatient rehab about a month ago at [facility] in [place]. Patient requires further evaluation stabilization for depressive symptoms, possible suicidal ideation which patient expressed in the emergency room. Please see admission notes for more detailed information. Over the course of this hospitalization patient was stabilized on the following medications: Neurontin 400 mg 3 times a day for mood stabilization Vistaril 50 mg twice a day as needed for anxiety Ativan was tapered down to 1 mg twice a day and 4 pills were given to the patient at the day of discharge as a tapering dose Multivitamins NicoDerm 21 mg transdermal Seroquel 200 mg twice a day Thiamine 100 mg daily and trazodone was titrated up to 200 mg at the nighttime for depression Patient was continued on Synthroid/Colace/Protonix Patient tolerated medications well, no side effects observed or reported, aims 0, no EPS. Patient refused to go to inpatient rehab as this personal lines underwriter recommended to the patient, usually it is the case for the patient, initially patient "would be willing to sign himself into the inpatient rehab but as symptoms are under control patient refused to sign himself in to the inpatient rehab. Overall patient improved, withdrawal symptoms were under control, vital signs are stable, no vomiting, no nausea, no upper extremities tremor. Patient reported that his mood is improving, restless, denied any thoughts of harming himself or others, requested to be discharged today, with a plan to follow-up with substance abuse program. Patient reached maximum effect from this hospitalization, deemed ready for discharge. Patient was compliant with her medications, attending group therapy minimally, has good appetite and sleep, no aggression no agitation no psychosis. At the time of the discharge patient was considered to pose no imminent danger to self or others, will be following up at dual diagnosis program, information about follow up appointment, time and address provided to the pt, (see note for more detailed information). It is a patient responsibility to follow up with outpatient clinic, PMD as well as specialists In case patient will need to obtain results of studies pending at discharge, patient was provided with contact information of Psychiatric Inpatient unit [phone] as well as Medical Record Department [phone], as well as [facility] team [phone]. Nicotine patch was provided Naltrexone treatment offered, but patient declined counseling about smoking and alcohol cessation provided AA meetings as well as smoking cessation treatment program information was provided by the pt was provided with prescriptions see medication reconciliation form Pt was educated about safety plan in case of worsening of symptoms or in case of suicidal or homicidal ideation call 911 or go to the nearest ER, also was educated to take meds as prescribed and stay away from drugs, pt verbalized understanding. 03/21/19 08:10 03/21/19 08:10 Lab Results 03/22/19 07:30: Triglycerides 435 H, Cholesterol 201 H, LDL Cholesterol Direct 97, HDL Cholesterol 46 03/22/19 07:30: Free T4 0.60 L, TSH 3rd Generation 5.26 H 03/21/19 08:10: Alcohol, Quantitative 285 H 03/21/19 08:10: Salicylates < 1 L, Acetaminophen < 10.0 L 03/21/19 08:10: Sodium 145, Potassium 4.2, Chloride 108 H, Carbon Dioxide 22, Anion Gap 19, BUN 13, Creatinine 0.9, Est GFR ( Amer) > 60, Est GFR (Non- Af Amer) > 60, Random Glucose 97, Calcium 8.6, Magnesium 2.0, Total Bilirubin 0 .4, AST 169 H D, ALT 177 H, Alkaline Phosphatase 78, Total Protein 7.7, Albumin 4.5, Globulin 3.2, Albumin/Globulin Ratio 1.4 03/21/19 08:10: WBC 6.9, RBC 4.34, Hgb 11.7 L, Hct 37.5 L, MCV 86.4, MCH 27.0, MCHC 31.2, RDW 19.5 H, Plt Count 230, MPV 9.8, Neut % (Auto) 45.9 L, Lymph % (Auto) 45.1 H, Rabun % (Auto) 4.9, Eos % (Auto) 3.2, Baso % (Auto) 0.9, Lymph # (Auto) 3.1, Rab[place] # (Auto) 0.3, Eos # (Auto) 0.2, Baso # (Auto) 0.06, Absolute Neuts (auto) 3.16 03/21/19 07:31: Urine Opiates Screen Negative, Urine Methadone Screen Negative, Ur Barbiturates Screen Negative, Ur Phencyclidine Scrn Negative, Ur Amphetamines Screen Negative, U Benzodiazepines Scrn Positive H, U Oth Cocaine Metabols Negative, U Cannabinoids Screen Negative 03/21/19 07:31: Urine Color Yellow, Urine Appearance Clear, Urine pH 5.5, Ur Specific [place] >= 1.030, Urine Protein Negative, Urine Glucose (UA) Negative, Urine Ketones Negative, Urine Blood Negative, Urine Nitrate Negative, Urine Bilirubin Negative, Urine Urobilinogen 0.2, Ur Leukocyte Esterase Negative Vital Signs Temp Pulse Resp BP Pulse Ox 03/22/19 07:16 97.9 F 70 20 166/77 H 03/21/19 15:45 94 H 131/83 03/21/19 11:30 90 18 98 03/21/19 11:00 98.1 F 92 H 18 130/89 98 03/21/19 08:22 98.4 F 99 H 20 133/85 93 L 03/21/19 07:18 98.9 F 103 H 18 124/88 95 Vital Signs (72 hours) 03/26/19 03/27/19 03/27/19 15:58 07:09 15:39 Temperature 97.4 F L Pulse Rate 115 H 79 93 H Respiratory 20 Rate Blood Pressure 146/79 114/66 117/71 03/28/19 03/28/19 03/29/19 07:10 15:53 06:58 Temperature 97.9 F 97.8 F Pulse Rate 96 H 93 H 78 Respiratory 20 20 Rate Blood Pressure 131/79 147/89 116/76 - Diagnosis (1) Alcohol use disorder Current Visit: No Status: Chronic Priority: High (2) MDD (major depressive disorder) Current Visit: No Status: Chronic Priority: Medium - Final Diagnosis (DSM 5) Condition upon Discharge: GOOD Disposition: HOME/ ROUTINE Follow-up Treatment Plan: At the time of the discharge patient was considered to pose no imminent danger to self or others, will be following up at dual diagnosis program, information about follow up appointment, time and address provided to the pt, (see note for more detailed information). It is a patient responsibility to follow up with outpatient clinic, PMD as well as specialists In case patient will need to obtain results of studies pending at discharge, patient was provided with contact information of Psychiatric Inpatient unit [phone] as well as Medical Record Department [phone], as well as [facility] Rehabilitation Attendant team [phone]. Nicotine patch was provided Naltrexone treatment offered, but patient declined counseling about smoking and alcohol cessation provided AA meetings as well as smoking cessation treatment program information was provided by the pt was provided with prescriptions see medication reconciliation form Pt was educated about safety plan in case of worsening of symptoms or in case of suicidal or homicidal ideation call 911 or go to the nearest ER, also was educated to take meds as prescribed and stay away from drugs, pt verbalized understanding. Prescriptions/Medication Reconciliation: Docusate [Colace] 100 mg PO TID #21 cap Folic Acid 1 mg PO DAILY #14 tab Gabapentin [Neurontin] 400 mg PO TID #45 cap hydrOXYzine Pamoate [Vistaril] 50 mg PO BID PRN #30 cap PRN Reason: Anxiety Levothyroxine [Synthroid] 25 mcg PO 0600 #7 tab LORazepam [Ativan] 1 mg PO BID #4 tab Multivitamin Therapeutic Tab [Thera Tab] 1 tab PO 0800 #14 tab Nicotine 21 mg/24 hr [Nicoderm Cq] 1 patch TD DAILY #14 patch Pantoprazole [Protonix EC Tab] 40 mg PO 0600,1600 #14 ect Quetiapine Fumarate [Seroquel] 200 mg PO 1600,2200 #30 tablet Sodium Chloride Nasal [place] [[place] Nasal [place]] 1 ml NS QID PRN #1 bottle PRN Reason: Nasal Congestion Sucralfate [Carafate Oral Susp] 1 gm PO 0600,1600 #14 udc Thiamine [Vitamin B1 Tab] 100 mg PO DAILY #14 tab traZODone [Desyrel] 200 mg PO HS #30 tab - Tobacco Cessation Tobacco Use Status for the last 30 days: Heavy User(>=5 cigs &/or cigars/pipes daily) Tobacco Use Treatment Practical Counseling Provided: Yes Tobacco Use Treatment FDA-Approved Cessation Medication Provided: Yes Type of Medication Provided: Nicoderm CQ Smoking Cessation Prescription was given: Yes - Alcohol or Substance Abuse Does the patient have an Alcohol or Substance Abuse Disorder: No A prescription for an FDA-approved medication for alcohol and drug dependence was given to the patient at discharge: No If no,reason for not providing: Patient refused - Antipsychotic Medications Pt discharged on 2 or more routine antipsychotic medications: No
== END 2019-03-29 15:00 | disposition home or self-care (01) | DRG 430 ==
LOC: ED 07:01 → ERH 09:10 → PSYC 11:31
PROVIDERS: ADMIT Psychiatry & Neurology Psychiatry; ATTEND Psychiatry & Neurology Psychiatry
DX: F31.9 Bipolar disorder, unspecified (principal); F10.239 Alcohol dependence with withdrawal, unspecified; F13.20 Sedative, hypnotic or anxiolytic dependence, uncomplicated; F19.24 Other psychoactive substance dependence with psychoactive substance-induced mood disorder; Y90.8 Blood alcohol level of 240 mg/100 ml or more; K29.20 Alcoholic gastritis without bleeding; E03.9 Hypothyroidism, unspecified; E78.5 Hyperlipidemia, unspecified; F17.210 Nicotine dependence, cigarettes, uncomplicated; F41.9 Anxiety disorder, unspecified; F90.9 Attention-deficit hyperactivity disorder, unspecified type; G47.00 Insomnia, unspecified; E78.00 Pure hypercholesterolemia, unspecified; Z91.14 Patient's other noncompliance with medication regimen; Z87.11 Personal history of peptic ulcer disease; Z91.19 Patient's noncompliance with other medical treatment and regimen

== ENCOUNTER 2019-03-30 16:36 | Emergency (ER) | payer MEDICAID, OTHER ==
[2019-03-30 16:36] VITALS: BMI 30.8
[2019-03-30] MEDS ORDERED: Sodium Chloride 0.9% 1,000 ML IV STA (17:07)
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
[2019-03-30 18:01] LABS: BASO # 0.03 K/mm3 (0.0-2.0); BASO % 0.4 % (0.0-3.0); EOS # 0.1 (0.0-0.7); EOS % 1.2 % (1.5-5.0); HEMOGLOBIN 11.2 g/dL (14.0-18.0); LYMPH # 2.9 (1.2-3.4); LYMPH % 38.7 % (22.0-35.0); MEAN CELL VOLUME 85.6 fl (80.0-105.0); MEAN CORPUSCULAR HEMOGLOBIN 26.9 pg (25.0-35.0); MEAN CORPUSCULAR HGB CONC 31.5 g/dl (31.0-37.0); MEAN PLATELET VOLUME 9.7 fl (7.0-11.0); MONO # 0.7 (0.1-0.6); MONO % 8.9 % (1.0-6.0); RBC 4.16 10^6/uL (3.5-6.1); RED CELL DISTRIBUTION WIDTH 19.9 % (11.5-14.5); WHITE BLOOD COUNT 7.4 10^3/uL (4.5-11.0)
[2019-03-30 18:12] LABS: ALB/GLOB RATIO 1.5 (1.1-1.8); ALBUMIN 4.5 g/dL (3.0-4.8); ALT/SGPT 169 U/L (7-56); AST/SGOT 84 U/L (17-59); BLOOD UREA NITROGEN 18 mg/dL (7-21); CALCIUM 8.8 mg/dL (8.4-10.5); GFR NON-AFRICAN AMERICAN > 60
[2019-03-30 18:16] VITALS: BP 137/75
[2019-03-30 19:14] VITALS: PULSE 73; RESP 19; TEMP 98; O2SAT 99
== END 2019-03-30 19:14 | disposition home or self-care (01) ==
LOC: ED 16:36
DX: F10.10 Alcohol abuse, uncomplicated (principal)
CPT/HCPCS: 80053; 80320; 85025; 96374; 96375; 99282; J2060; J2405; J7030

== ENCOUNTER 2019-04-01 17:20 | Emergency (ER) | payer MEDICAID ==
[2019-04-01 17:37] VITALS: BMI 25.0
[2019-04-01] MEDS ORDERED: DiphenhydrAMINE 50 mg/ml Inj IM STA (17:39)
[2019-04-01 17:45] VITALS: O2SAT 98
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
--- NOTE | 2019-04-01 23:28 | ED PDOC ---
Physical Exam Vital Signs Reviewed: Yes Vital Signs Temp Pulse Resp BP Pulse Ox 04/01/19 17:44 98.3 F 78 18 132/78 98 Temperature: Afebrile Blood Pressure: Normal Pulse: Regular Respiratory Rate: Normal Appearance: Positive for: Well-Appearing, Non-Toxic, Comfortable Pain Distress: None Mental Status: Positive for: Alert and Oriented X 3 Medical Decision Making ED Course and Treatment: 04/01/19 19:26: Case endorsed to me by Dr. Thacker. Pending sobriety, reassessment, and final disposition. 04/02/19 05:04 Patient awake alert sober with steady gait. - Medication Orders Current Medication Orders: Discontinued Medications Diphenhydramine HCl (Benadryl) 25 mg IM STAT STA Stop: 04/01/19 17:40 Last Admin: 04/01/19 17:58 Dose: 25 mg IM Administration Charges Document 04/01/19 17:58 [email or web address] (Rec: 04/01/19 17:58 [id number]) Injection Site MAR Injection Site Left Deltoid Charges for Administration # of IM Administrations 1 Haloperidol Lactate (Haldol) 5 mg IM STAT STA; Protocol Stop: 04/01/19 17:38 Last Admin: 04/01/19 17:58 Dose: 5 mg IM Administration Charges Document 04/01/19 17:58 [email or web address] (Rec: 04/01/19 17:58 CASTS1 [id number]) Injection Site MAR Injection Site Right Deltoid Charges for Administration # of IM Administrations 1 Lorazepam (Ativan) 2 mg IM ONCE ONE; Protocol Stop: 04/01/19 17:39 Last Admin: 04/01/19 17:57 Dose: 2 mg IM Administration Charges Document 04/01/19 17:57 [email or web address] (Rec: 04/01/19 17:58 [email or web address] [id number]) Injection Site MAR Injection Site Right Deltoid Charges for Administration # of IM Administrations 1 - Scribe Statement The provider has reviewed the documentation as recorded by the Stanley Jordan Provider Scribe Attestation: All medical record entries made by the Scribe were at my direction and personally dictated by me. I have reviewed the chart and agree that the record accurately reflects my personal performance of the history, physical exam, medical decision making, and the department course for this patient. I have also personally directed, reviewed, and agree with the discharge instructions and disposition. Disposition/Present on Arrival - Present on Arrival Any Indicators Present on Arrival: No History of DVT/PE: No History of Uncontrolled Diabetes: No Urinary Catheter: No History of Decub. Ulcer: No History Surgical Site Infection Following: None - Disposition Have Diagnosis and Disposition been Completed?: Yes Diagnosis: Alcohol abuse Disposition: HOME/ ROUTINE Disposition Time: 05:04 Patient Problems: Current Active Problems Problem Status Onset Alcohol abuse Chronic Condition: GOOD Referrals: Alcoholics Anonymous [Outside] - Follow up with primary Forms: [email or web address] (Venezuelan)
[2019-04-02 05:24] VITALS: BP 122/78; PULSE 89; RESP 17; TEMP 98.1
== END 2019-04-02 05:23 | disposition home or self-care (01) ==
LOC: ED 17:20
DX: F10.10 Alcohol abuse, uncomplicated (principal)
CPT/HCPCS: 96372; 99283; J1200; J1630; J2060

== ENCOUNTER 2019-04-02 23:15 | Emergency (ER) | payer MEDICAID ==
[2019-04-02 23:15] VITALS: BMI 30.8
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
--- NOTE | 2019-04-03 08:00 | ED PDOC ---
Physical Exam Vital Signs Temp Pulse Resp BP Pulse Ox 04/03/19 06:34 97.9 F 72 20 121/79 96 04/03/19 04:44 89 18 139/72 98 04/03/19 01:00 98.2 F 88 18 133/88 96 04/02/19 23:25 97.5 F L 90 18 138/93 H 96 Medical Decision Making ED Course and Treatment: Signed out to me at change of shift pending PES. Patient ready to be discharged home on previous shift but then asked for detox. PES arrived, contacted [facility], not accepted. Ready for discharge now. Disposition/Present on Arrival - Present on Arrival Any Indicators Present on Arrival: No History of DVT/PE: No History of Uncontrolled Diabetes: No Urinary Catheter: No History of Decub. Ulcer: No History Surgical Site Infection Following: None - Disposition Have Diagnosis and Disposition been Completed?: Yes Diagnosis: Alcohol abuse Disposition: HOME/ ROUTINE Disposition Time: 08:00 Patient Plan: Discharge Patient Problems: Current Active Problems Problem Status Onset Alcohol abuse Chronic Condition: STABLE Discharge Instructions (ExitCare): Alcohol Abuse and Alcoholism (DC) Forms: [employer] (Venezuelan)
[2019-04-03 08:04] VITALS: RESP 18; TEMP 98
[2019-04-03 08:22] VITALS: BP 121/59; PULSE 75; O2SAT 99
== END 2019-04-03 08:19 | disposition home or self-care (01) ==
LOC: ED 23:15
DX: F10.10 Alcohol abuse, uncomplicated (principal)

== ENCOUNTER 2019-04-06 12:48 | Emergency (ER) | payer MEDICAID ==
[2019-04-06 13:06] VITALS: TEMP 97.4
[2019-04-06] MEDS ORDERED: Sodium Chloride 0.9% 1,000 ML IV STA (13:30)
[2019-04-06] MEDS ORDERED: Multivitamin (MVI) 10 ML, Thiamine 100 MG, Folic Acid 1 MG in Dextrose 5% In Water 1,00... IV ONE (13:31)
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
[2019-04-06 13:46] VITALS: BMI 31.7
[2019-04-06 14:00] LABS: BASO # 0.08 K/mm3 (0.0-2.0); BASO % 1.5 % (0.0-3.0); EOS # 0.1 (0.0-0.7); EOS % 1.3 % (1.5-5.0); HEMOGLOBIN 13.2 g/dL (14.0-18.0); LYMPH # 2.9 (1.2-3.4); LYMPH % 53.8 % (22.0-35.0); MEAN CELL VOLUME 83.4 fl (80.0-105.0); MEAN CORPUSCULAR HEMOGLOBIN 27.4 pg (25.0-35.0); MEAN CORPUSCULAR HGB CONC 32.9 g/dl (31.0-37.0); MEAN PLATELET VOLUME 9.5 fl (7.0-11.0); MONO # 0.3 (0.1-0.6); MONO % 6.1 % (1.0-6.0); RBC 4.81 10^6/uL (3.5-6.1); RED CELL DISTRIBUTION WIDTH 18.9 % (11.5-14.5); WHITE BLOOD COUNT 5.4 10^3/uL (4.5-11.0)
[2019-04-06 14:32] LABS: ACETAMINOPHEN < 10.0 ug/ml (10.0-20.0); SALICYLATE < 1 mg/dL (2.0-20.0)
[2019-04-06 14:37] LABS: ALB/GLOB RATIO 1.3 (1.1-1.8); ALBUMIN 4.4 g/dL (3.0-4.8); ALT/SGPT 84 U/L (7-56); AST/SGOT 92 U/L (17-59); BLOOD UREA NITROGEN 15 mg/dL (7-21); CALCIUM 8.5 mg/dL (8.4-10.5); GFR NON-AFRICAN AMERICAN > 60
[2019-04-06 16:34] VITALS: BP 131/77; PULSE 80; RESP 18; O2SAT 99
== END 2019-04-06 15:30 | disposition home or self-care (01) ==
LOC: ED 12:48
DX: F10.10 Alcohol abuse, uncomplicated (principal); Y90.8 Blood alcohol level of 240 mg/100 ml or more; F19.10 Other psychoactive substance abuse, uncomplicated
CPT/HCPCS: 80053; 80320; 80329; 85025; 96365; 96375; 99283; J2405; J3411; J7070